=== PATIENT | male | born 1950 | race Caucasian/White ===

== ENCOUNTER → 2018-02-21 07:09 | Outpatient (CLI) | payer MEDICARE, OTHER, SELFPAY ==
[2018-02-21 09:07] LABS: Blood Urea Nitrogen 15 mg/dL (9-20); Estimated Glomerular Filt Rate > 60.0 mL/min (>60); Glucose 121 mg/dL (80-110)
[2018-02-21 09:10] LABS: Hemoglobin A1C% w Est Avg Glu 6.3 % (4.0-6.0)
== END ==
PROVIDERS: PCP Family Medicine; Visit Provider Family Medicine
DX: E11.9 Type 2 diabetes mellitus without complications (principal)
CPT/HCPCS: 36415; 82565; 82947; 83036; 84520

== ENCOUNTER → 2018-02-23 15:22 | Outpatient (CLI) | payer MEDICARE, OTHER, SELFPAY ==
[2018-02-23 16:05] LABS: Prostate Specific Antigen Scrn 1.55 ng/mL (0.1-4.0)
== END ==
PROVIDERS: Family Provider Family Medicine; PCP Family Medicine; Visit Provider Family Medicine
DX: N40.0 Benign prostatic hyperplasia without lower urinary tract symptoms (principal)
CPT/HCPCS: G0103

== ENCOUNTER 2018-05-24 07:50 | Emergency (ER) | payer MEDICARE, OTHER, SELFPAY ==
[2018-05-24 07:59] VITALS: BP 175/100; PULSE 80; RESP 16; TEMP 35.9; O2SAT 99
--- NOTE | 2018-05-24 08:28 | ED.BACK ---
HPI - Back Pain/Injury General Chief Complaint: Back Pain/Injury Stated Complaint: 'BACK INJURY CAN'T WAIT' Time Seen by Provider: 05/24/18 08:12 Source: patient Mode of arrival: ambulatory Limitations: no limitations History of Present Illness HPI Narrative: Patient is a 67-year-old male with chronic back pain. He has had back pain on and off since at least 2013. 18 months ago in 2017 he had an injury which worsened his back pain. 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 He takes Percocet he says sometimes 3 at a time which is not helping. He had a cortisone shot 1 month ago which he said did not help at all and fact it has gotten worse. Last night his pain was so bad he was unable to sleep. It feels better when he is hunched over. He has chronic neuropathy in his legs from diabetes he does not feel like it is any worse. He is still able to walk although the pain in his back is worse. He denies weakness in his legs. He has no urinary or stool incontinence. He said he was sweating this morning when he arrived to the emergency department but he is afebrile. He has known L4-L5 degenerative disc disease MD Complaint: back pain Onset (ago): year(s) Duration: constant Location: lumbar spine Related Data Home Medications Medication Instructions Recorded Confirmed ibuprofen 200 mg capsule 1,200 mg PO Q4-6H PRN cap 04/18/18 05/24/18 diclofenac sodium 1 applic TOPICAL DIRECTED 05/24/18 05/24/18 gabapentin 600 mg PO PRN PRN MDD 4 05/24/18 05/24/18 ketoconazole 1 applic TOPICAL DIRECTED 05/24/18 05/24/18 naproxen sodium [Aleve] 1 dose PO PRN PRN 05/24/18 05/24/18 oxycodone-acetaminophen 1 tab PO TID PRN 05/24/18 05/24/18 Previous Rx's Medication Instructions Recorded Glucose: Test Strips 0 str QDAY #100 str 11/19/17 hydrocortisone 2.5 % topical cream 1 applictn TOP BID #28 gram 02/23/18 glipizide 5 mg PO QDAY #30 tab 03/17/18 lidocaine 1 patch TOP DAILY PRN #15 each 05/24/18 prednisone 20 mg PO DAILY #5 tab 05/24/18 Allergies Allergy/AdvReac Type Severity Reaction Status Date / Time amoxicillin [AMOXICILLIN] Allergy Mild NAUSEA/VOMI Verified 05/24/18 09:19 TING clavulanic acid Allergy Mild AUGMENTIN/V Verified 05/24/18 09:19 [CLAVULANIC ACID] OMITING erythromycin base Allergy Mild SKIN Verified 05/24/18 09:19 [ERYTHROMYCIN BASE] CRAWLING latex [LATEX] Allergy Mild SKIN Verified 05/24/18 09:19 IRRITATION Penicillins [PENICILLINS] Allergy Mild NAUSEA/VOMI Verified 05/24/18 09:19 TING Sulfa (Sulfonamide Allergy Mild BLISTER Verified 05/24/18 09:19 Antibiotics) [SULFA (SULFONAMIDE ANTIBIOTICS)] ciprofloxacin [CIPROFLOXACIN] AdvReac Intermediate MADE PT Verified 05/24/18 09:19 FEEL RUMMY/NAUSEA Review of Systems Review of Systems All systems reviewed & are unremarkable except as noted in HPI and below Constitutional Denies chills, Denies fever(s), Denies lethargy and Denies weakness Cardiovascular Denies dyspnea and Denies dyspnea on exertion Respiratory Denies cough, Denies dyspnea, Denies dyspnea on exertion and Denies wheezing Gastrointestinal Gastrointestinal: Denies diarrhea and Denies nausea Genitourinary Denies hematuria, Denies flank pain, Denies urinary incontinence and Denies urinary urgency Musculoskeletal Reports as per HPI, Reports back pain, Reports limited range of motion, Denies muscle weakness, Reports numbness and Reports tingling Integumentary/Breasts Denies pruritus, Denies erythema, Denies rash and Denies wounds Neurologic Reports as per HPI, Reports numbness, Reports tingling, Reports paresthesias and Denies weakness Allergic/Immunologic Denies wheezing [facility] Medical History Prepatellar bursitis of right knee (Chronic) Left sided sciatica (Chronic) Essential hypertension (Chronic) Osteoarthritis of lower back (Chronic 09/19/14) Tear of rotator cuff (Chronic 09/19/14) Benign prostatic hyperplasia (Chronic 01/02/15) Cramps of lower extremity (Chronic 01/02/15) Controlled type 2 diabetes mellitus without complication (Chronic 04/30/16) 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) BPH (benign prostatic hyperplasia) (Chronic) GERD (gastroesophageal reflux disease) (Chronic) Inflamed internal hemorrhoid (Chronic 02/2018) Surgical History H/O colonoscopy (Resolved 07/08/15) H/O sinus surgery (Resolved 2003) History of elbow surgery (Resolved) History of sebaceous cyst (Resolved 2000) Hx of inguinal hernia surgery (Resolved 1996) Status post laminectomy (Resolved) Social History marital status: Smoking Status: Former smoker alcohol intake: current (ON OCCASION ) Exam Initial Vital Signs Initial Vital Signs: Vital Signs Temperature 96.7 F L 05/24/18 07:59 Pulse Rate 80 05/24/18 07:59 Respiratory Rate 16 05/24/18 07:59 Blood Pressure 175/100 H 05/24/18 07:59 Pulse Oximetry 99 05/24/18 07:59 GENERAL: Elderly male sitting in chair hunched over appears in pain HEENT: Head atraumatic,EOMI, pupils reactive, neck is supple CARDIOVASCULAR: Regular rate and rhythm without murmurs, rubs or gallops. RESPIRATORY: Breath sounds equal bilaterally, no wheezes rales or rhonchi. ABDOMEN: Soft, nontender. Normoactive bowel sounds all 4 quadrants. No guarding or rebound. BACK: L4 midline tenderness step-off : No CVA tenderness EXTREMITIES: Normal range of motion, no clubbing or edema. Neurovascularly intact NEUROLOGICAL: Alert and oriented x4.Normal gait and speech. Cranial nerves II through XII grossly intact. Decreased sensation in left leg but are not changed. SKIN: Warm, dry, no laceration, no petechiae, no rashes or lesions. Course Orders Ordered: ED Orders 05/24/18 08:57 CT lumbar spine wo con Stat 05/24/18 09:42 MR lumbar spine wo/w con Stat 05/24/18 10:35 Basic Metabolic Panel Stat C-Reactive Protein Quant Stat Complete Blood Count AUTO DIFF Stat Erythrocyte Sedimentation Rate Stat Discontinued Medications Hydromorphone HCl (Dilaudid) 1 mg SUBCUT Q4H PRN PRN Reason: Pain, Severe (7-10) Hydromorphone HCl (Dilaudid) 1 mg IV NOW ONE Stop: 05/24/18 10:02 Last Admin: 05/24/18 10:02 Dose: 1 mg Ketorolac Tromethamine (Toradol) 60 mg IM NOW ONE Stop: 05/24/18 08:32 Last Admin: 05/24/18 08:34 Dose: 60 mg Vital Signs - 8 hr 05/24/18 07:59 05/24/18 10:10 05/24/18 12:39 Temperature 96.7 F L 98.4 F Pulse Rate 80 36 L 60 Respiratory Rate 16 18 16 Blood Pressure 175/100 H Blood Pressure [Right Arm] 143/53 H 134/77 Pulse Oximetry 99 100 94 MDM - Back Pain/Injury Lab Data Attestation: I reviewed the patient's lab results. Result diagrams: 05/24/18 10:35 05/24/18 10:35 Lab Results 05/24/18 05/24/18 Range/Units 10:35 10:35 WBC 6.1 (4.5-11.0) X10^3/uL RBC 5.37 (4.5-5.9) X10^6/uL Hgb 15.8 (13.5-17.5) g/dL Hct 46.1 (41-53) % MCV 85.9 (80-100) fL MCH 29.4 (26-34) PG MCHC 34.2 (30-36) % RDW 14.1 (11.6-14.8) % Plt Count 178 (150-400) X10^3/uL Neut % (Auto) 73.9 (50-75) % Lymph % (Auto) 17.4 L (25-40) % [place] % (Auto) 6.8 (3-14) % Eos % (Auto) 1.0 L (2-4) % Baso % (Auto) 0.9 (0-2) % Neut # (Auto) 4500 (3539-1496) /uL ESR 1 (0-15) MM/HR Sodium 141 (137-145) mmol/L Potassium 5.0 (3.4-5.1) mmol/L Chloride 101 (98-107) mmol/L Carbon Dioxide 30 (22-32) mmol/L BUN 20 (9-20) mg/dL Creatinine 0.90 (0.66-1.25) mg/dL Estimated GFR > 60.0 (>60) mL/min BUN/Creatinine Ratio 22.2 H (6-22) Glucose 111 H (80-110) mg/dL Calcium 10.0 (8.4-10.2) mg/dL C-Reactive Protein < 0.5 (<1.0) mg/dL Imaging Data ct lUMBAR: Radiologist's impression: PROCEDURE: CT LUMBAR SPINE WO CON INDICATIONS: 67-year-old man with worsening lumbar pain, sciatica bilaterally, worse on the right. TECHNIQUE: Noncontrast 3 mm thick sections acquired from the T12 level to the sacrum. Sagittal and coronal reformats were constructed. For radiation dose reduction, the following was used: automated exposure control. COMPARISON: [facility], MR, L-SPINE WITHOUT CONTRAST, 02/01/2017, 18:36. [facility] [place], CR, XR LUMBAR SPINE FLEXION EXTENSION, 06/14/2017, 9:18. [facility] [place], RF, LUMBAR TRANSFORAMINAL ANÍBAL, 08/12/2017, 16:50. FINDINGS: Image quality: Excellent. Bones: There is normal bony alignment. No acute vertebral body compression fractures. No suspicious lytic or blastic bony lesions. Central spinal caliber is of normal overall caliber. No pars defects. T12-L1: Normal appearance of intervertebral disc. Mild bilateral facet arthropathy. No central canal or foraminal stenosis. L1-L2: Mild loss of disc height and broad posterior disc bulge. Mild bilateral facet arthropathy. The central canal is mildly narrowed. No foraminal stenosis. L2-L3: Phwj-qk-ieqalnxu loss of disc height and vacuum phenomenon. Diffuse disc bulge and posterior disc osteophyte complex. Mild bilateral facet arthropathy. The central canal is moderately narrowed. Mild bilateral foraminal stenosis. L3-L4: Mild loss of disc height. Diffuse posterior disc bulge and disc protrusion. Mild bilateral facet arthropathy. The central canal is moderately narrowed. Mild bilateral foraminal stenosis. L4-L5: Laminectomies bilaterally. Moderate loss of disc height. Diffuse posterior disc bulge and disc protrusion. No central canal stenosis. Mild bilateral facet arthropathy. Severe right and moderate left foraminal stenosis. L5-S1: Preserved disc height. There is posterior disc bulge. No central canal stenosis. Mild lateral foramina stenosis. Soft tissues: There are a few colonic diverticula in sigmoid colon. No retroperitoneal masses or hematomas. Visualized aorta is normal in caliber. IMPRESSION: 1. Degenerative and postsurgical changes in lumbar as described. 2. Moderate central canal stenosis at L2-L3 and L3-L4. 3. Multilevel foraminal stenoses as described. Dictated by: Piero Che M.D. on 05/24/2018 at 9:06 MRI lumbar: Radiologist's impression: PROCEDURE: MR LUMBAR SPINE WO/W CON INDICATIONS: worsening back pain cortisone injection 1 month ago TECHNIQUE: Noncontrast sagittal T1 spin echo and T2 fast spin echo, sagittal STIR, axial T1 and T2 fast spin echo through the lumbar spine. In cases with scoliosis, additional coronal T2 fast spin echo may be performed. After the administration of contrast, sagittal and axial T1 spin echo with fat saturation through the lumbar spine. COMPARISON: [facility], MR, L-SPINE WITHOUT CONTRAST, 02/01/2017, 18:36. [facility], CT, CT LUMBAR SPINE WO CON, 05/24/2018, 8:39. FINDINGS: Image quality: Excellent. Alignment and curvature: There is straightening of normal lumbar curvature. There is trace retrolisthesis of L2 on L3, L3 on L4. Marrow: Marrow is of normal overall signal. Prominent, presumably degenerative reactive endplate changes are present at L4-5 new compared to MR of 02/06/17. No acute vertebral body compression fractures. No suspicious marrow enhancement. Spinal cord: Conus medullaris terminates at the T12-L1 level. Visualized spinal cord demonstrates normal signal, without suspicious enhancement. Paraspinous soft tissues: No paravertebral masses or abnormal enhancement. Discs: Moderate desiccation is present from L1-L2 through L4-5, mild at L5-S1. L1-L2: Mild disc bulge with mild spinal stenosis. Moderate left and mild right foraminal narrowing with minimal epidural lipomatosis as well as facet and ligamentum flavum hypertrophy. No interval change. L2-L3: Mild disc bulge with moderate spinal stenosis. Minimal epidural lipomatosis as well as facet and ligamentum flavum hypertrophy are present. Mild to moderate bilateral foraminal narrowing is present, unchanged. There remains compromise of the lateral recesses secondary to disc bulges. L3-L4: Mild disc bulge with moderate spinal stenosis. There is prominent compromise left lateral recess secondary to disc extrusion with compromise of the exiting nerve roots. There is compromise of the right lateral recess secondary to disc bulge, unchanged. Facet and ligamentum flavum hypertrophy are present. Severe left and moderate right foraminal narrowing are present, unchanged. L4-L5: Mild disc bulge with superimposed right posterior paracentral protrusion causing compromise of the right lateral recess. There is mild spinal stenosis. There is severe right and moderate to severe left foraminal narrowing. Laminectomy changes are noted. L5-S1: Mild disc bulge with mild spinal stenosis. There is moderate to severe right and moderate left narrowing within the subarticular recesses bilaterally with facet hypertrophy. No interval change. IMPRESSION: 1. Prominent multilevel degenerative changes appear relatively stable compared to recent prior examinations. 2. Multilevel spinal stenosis most notable at L2-3 and L3-4 secondary to disc bulges with a contributing factor facet/ligamentum flavum arthropathy. 3. Multilevel areas of foraminal narrowing secondary to facet arthropathy as well as areas of previous identified protrusions/extrusions without significant change. No Dictated by: Hanna Meyer M.D. on 05/24/2018 at 10:27 MDM Narrative Medical decision making narrative: Patient is having persistent pain. CT shows stable disease. Patient read recently had a cortisone injection in the back. Ever since then he is having increasing pain no weakness or incontinence. However there is concern for possible epidural abscess or hematoma. No fever although he says he has been sweating. MRI and CT are both negative this is acute on chronic back pain they appear relatively stable. I have tried to reassure patient. Recommended outpatient follow-up. Patient is given a copy of his MRI. Discharge Plan Departure Patient Disposition: Home Clinical Impression: Acute exacerbation of chronic low back pain Discharge Date/Time: 05/24/18 12:45 Interventions: ED Discharge Assessment Last Done: 05/24/18 12:42 Instructions: Managing Chronic Low Back Pain Activity Restrictions/Additional Instructions: *You have been diagnosed with acute on chronic back pain *What to do: You may need physical therapy again please continue with chronic pain management. *Continue to take medications as directed: Prescriptions faxed to [facility] in [place] Prednisone 20 mg once a day for 5 days, this will increase your sugar Lidocaine patches may cut if needed place in area of pain. Leave on for 12 hr and then remove *Follow up with your primary care provider in 2-3 days, follow up with Dr. núñez or Dr. Avila they are local back specialists. Dr. 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 *Return to ER if you should have inability to walk, loss of urine or loss of stool, increasing weakness or any new, worsening or concerning symptoms Prescriptions: New prednisone 20 mg tablet 20 mg PO DAILY Qty: 5 RF: 0 lidocaine 5 % adhesive patch,medicated 1 patch TOP DAILY PRN (Reason: pain) Qty: 15 RF: 0 No Action Glucose: Test Strips QDAY Qty: 100 RF: 3 glipizide 5 mg tablet 5 mg PO QDAY Qty: 30 RF: 3 hydrocortisone 2.5 % cream 1 applictn TOP BID Qty: 28 RF: 3 ibuprofen 200 mg capsule 1,200 mg PO Q4-6H PRN (Reason: Pain, Moderate) RF: 0 oxycodone-acetaminophen 10-325 mg tablet 1 tab PO TID PRN (Reason: Pain, Severe) RF: 0 ketoconazole 2 % cream 1 applic Topical DIRECTED RF: 0 diclofenac sodium 1 % gel 1 applic Topical DIRECTED RF: 0 gabapentin 600 mg Tablet 600 mg PO PRN MDD 4 PRN (Reason: Pain (Scale Score 1-3)) RF: 0 naproxen sodium [Aleve] 220 mg Tablet 1 dose PO PRN PRN (Reason: Pain, Moderate) RF: 0 Referrals: Wiley Mcghee MD [Non-Staff] - Cas Marin MD [Primary Care Provider] - Jd Waters MD [Physician] -
[2018-05-24] MEDS: KETOROLAC 60 MG/2 ML VIAL IM (08:34)
--- NOTE | 2018-05-24 08:57 | DI.CT.S_ITS ---
PROCEDURE: CT LUMBAR SPINE WO CON INDICATIONS: 67-year-old man with worsening lumbar pain, sciatica bilaterally, worse on the right. TECHNIQUE: Noncontrast 3 mm thick sections acquired from the T12 level to the sacrum. Sagittal and coronal reformats were constructed. For radiation dose reduction, the following was used: automated exposure control. COMPARISON: [facility], MR, L-SPINE WITHOUT CONTRAST, 02/01/2017, 18:36. [facility] [place], CR, XR LUMBAR SPINE FLEXION EXTENSION, 06/14/2017, 9:18. [facility] [place], RF, LUMBAR TRANSFORAMINAL ANÍBAL, 08/12/2017, 16:50. FINDINGS: Image quality: Excellent. Bones: There is normal bony alignment. No acute vertebral body compression fractures. No suspicious lytic or blastic bony lesions. Central spinal caliber is of normal overall caliber. No pars defects. T12-L1: Normal appearance of intervertebral disc. Mild bilateral facet arthropathy. No central canal or foraminal stenosis. L1-L2: Mild loss of disc height and broad posterior disc bulge. Mild bilateral facet arthropathy. The central canal is mildly narrowed. No foraminal stenosis. L2-L3: Tfee-ai-vvgrdwus loss of disc height and vacuum phenomenon. Diffuse disc bulge and posterior disc osteophyte complex. Mild bilateral facet arthropathy. The central canal is moderately narrowed. Mild bilateral foraminal stenosis. L3-L4: Mild loss of disc height. Diffuse posterior disc bulge and disc protrusion. Mild bilateral facet arthropathy. The central canal is moderately narrowed. Mild bilateral foraminal stenosis. L4-L5: Laminectomies bilaterally. Moderate loss of disc height. Diffuse posterior disc bulge and disc protrusion. No central canal stenosis. Mild bilateral facet arthropathy. Severe right and moderate left foraminal stenosis. L5-S1: Preserved disc height. There is posterior disc bulge. No central canal stenosis. Mild lateral foramina stenosis. Soft tissues: There are a few colonic diverticula in sigmoid colon. No retroperitoneal masses or hematomas. Visualized aorta is normal in caliber. IMPRESSION: 1. Degenerative and postsurgical changes in lumbar as described. 2. Moderate central canal stenosis at L2-L3 and L3-L4. 3. Multilevel foraminal stenoses as described. Dictated by: Piero Che M.D. on 05/24/2018 at 9:06 Approved by: Piero Che M.D. on 05/24/2018 at 9:23
--- NOTE | 2018-05-24 09:42 | DI.MRI.S_ITS ---
PROCEDURE: MR LUMBAR SPINE WO/W CON INDICATIONS: worsening back pain cortisone injection 1 month ago TECHNIQUE: Noncontrast sagittal T1 spin echo and T2 fast spin echo, sagittal STIR, axial T1 and T2 fast spin echo through the lumbar spine. In cases with scoliosis, additional coronal T2 fast spin echo may be performed. After the administration of contrast, sagittal and axial T1 spin echo with fat saturation through the lumbar spine. COMPARISON: [facility], MR, L-SPINE WITHOUT CONTRAST, 02/01/2017, 18:36. [facility], CT, CT LUMBAR SPINE WO CON, 05/24/2018, 8:39. FINDINGS: Image quality: Excellent. Alignment and curvature: There is straightening of normal lumbar curvature. There is trace retrolisthesis of L2 on L3, L3 on L4. Marrow: Marrow is of normal overall signal. Prominent, presumably degenerative reactive endplate changes are present at L4-5 new compared to MR of 02/06/17. No acute vertebral body compression fractures. No suspicious marrow enhancement. Spinal cord: Conus medullaris terminates at the T12-L1 level. Visualized spinal cord demonstrates normal signal, without suspicious enhancement. Paraspinous soft tissues: No paravertebral masses or abnormal enhancement. Discs: Moderate desiccation is present from L1-L2 through L4-5, mild at L5-S1. L1-L2: Mild disc bulge with mild spinal stenosis. Moderate left and mild right foraminal narrowing with minimal epidural lipomatosis as well as facet and ligamentum flavum hypertrophy. No interval change. L2-L3: Mild disc bulge with moderate spinal stenosis. Minimal epidural lipomatosis as well as facet and ligamentum flavum hypertrophy are present. Mild to moderate bilateral foraminal narrowing is present, unchanged. There remains compromise of the lateral recesses secondary to disc bulges. L3-L4: Mild disc bulge with moderate spinal stenosis. There is prominent compromise left lateral recess secondary to disc extrusion with compromise of the exiting nerve roots. There is compromise of the right lateral recess secondary to disc bulge, unchanged. Facet and ligamentum flavum hypertrophy are present. Severe left and moderate right foraminal narrowing are present, unchanged. L4-L5: Mild disc bulge with superimposed right posterior paracentral protrusion causing compromise of the right lateral recess. There is mild spinal stenosis. There is severe right and moderate to severe left foraminal narrowing. Laminectomy changes are noted. L5-S1: Mild disc bulge with mild spinal stenosis. There is moderate to severe right and moderate left narrowing within the subarticular recesses bilaterally with facet hypertrophy. No interval change. IMPRESSION: 1. Prominent multilevel degenerative changes appear relatively stable compared to recent prior examinations. 2. Multilevel spinal stenosis most notable at L2-3 and L3-4 secondary to disc bulges with a contributing factor facet/ligamentum flavum arthropathy. 3. Multilevel areas of foraminal narrowing secondary to facet arthropathy as well as areas of previous identified protrusions/extrusions without significant change. No Dictated by: Hanna Meyer M.D. on 05/24/2018 at 10:27 Approved by: Hanna Meyer M.D. on 05/24/2018 at 11:04
[2018-05-24] MEDS: HYDROMORPHONE 1 MG INJ IV (10:02)
[2018-05-24 10:10] VITALS: BP 143/53; PULSE 36; RESP 18; TEMP 36.9; O2SAT 100
[2018-05-24 10:44] LABS: Add Manual Diff / Slide Review NO; Basophils Percent Auto 0.9 % (0-2); Hematocrit 46.1 % (41-53); Hemoglobin 15.8 g/dL (13.5-17.5); Lymphocytes Percent Auto 17.4 % (25-40); Mean Corpuscular HGB Conc 34.2 % (30-36); Mean Corpuscular Hemoglobin 29.4 PG (26-34); Mean Corpuscular Volume 85.9 fL (80-100); Monocytes Percent Auto 6.8 % (3-14); Neutrophils Absolute Auto 4500 /uL (3000-5900); Neutrophils Percent Auto 73.9 % (50-75); Platelet Count 178 X10^3/uL (150-400); Red Blood Cell Count 5.37 X10^6/uL (4.5-5.9); Red Cell Distribution Width 14.1 % (11.6-14.8); White Blood Cell Count 6.1 X10^3/uL (4.5-11.0)
[2018-05-24 10:56] LABS: BUN Creatinine Ratio 22.2 (6-22); Blood Urea Nitrogen 20 mg/dL (9-20); Carbon Dioxide 30 mmol/L (22-32); Chloride 101 mmol/L (98-107); Estimated Glomerular Filt Rate > 60.0 mL/min (>60); Glucose 111 mg/dL (80-110); HEMOLYSIS < 15 (0-50); Sodium 141 mmol/L (137-145)
[2018-05-24 10:57] LABS: C-Reactive Protein Quant < 0.5 mg/dL (<1.0)
[2018-05-24 11:05] LABS: Erythrocyte Sedimentation Rate 1 MM/HR (0-15)
[2018-05-24 12:39] VITALS: BP 134/77; PULSE 60; RESP 16; O2SAT 94
== END 2018-05-24 12:45 | disposition home or self-care (01) ==
PROVIDERS: Emergency Provider Emergency Medicine; Family Provider Family Medicine; PCP Family Medicine
DX: M54.5 Low back pain (principal); G89.29 Other chronic pain
CPT/HCPCS: 36415; 72131; 72158; 80048; 85025; 85651; 86140; 96372; 96374; 99283; 99285; J1170; J1885

== ENCOUNTER → 2018-06-23 08:05 | Outpatient (CLI) | payer MEDICARE, OTHER, SELFPAY ==
[2018-06-23 08:45] LABS: BUN Creatinine Ratio 22.2 (6-22); Blood Urea Nitrogen 20 mg/dL (9-20); Calcium 9.5 mg/dL (8.4-10.2); Carbon Dioxide 26 mmol/L (22-32); Chloride 104 mmol/L (98-107); Estimated Glomerular Filt Rate > 60.0 mL/min (>60); Glucose 118 mg/dL (80-110); HEMOLYSIS 22 (0-50); Potassium 4.6 mmol/L (3.4-5.1); Sodium 141 mmol/L (137-145)
[2018-06-23 09:12] LABS: Add Manual Diff / Slide Review NO; Basophils Percent Auto 2.4 % (0-2); Eosinophils Percent Auto 3.6 % (2-4); Hematocrit 45.6 % (41-53); Hemoglobin 15.4 g/dL (13.5-17.5); Lymphocytes Percent Auto 21.4 % (25-40); Mean Corpuscular HGB Conc 33.7 % (30-36); Mean Corpuscular Hemoglobin 29.5 PG (26-34); Mean Corpuscular Volume 87.5 fL (80-100); Neutrophils Absolute Auto 2800 /uL (3000-5900); Neutrophils Percent Auto 63.6 % (50-75); Platelet Count 208 X10^3/uL (150-400); Red Blood Cell Count 5.21 X10^6/uL (4.5-5.9); Red Cell Distribution Width 14.3 % (11.6-14.8); White Blood Cell Count 4.4 X10^3/uL (4.5-11.0)
[2018-06-23 09:34] LABS: Hemoglobin A1C% w Est Avg Glu 6.4 % (4.0-6.0)
== END ==
PROVIDERS: Family Provider Family Medicine; PCP Family Medicine; Visit Provider Orthopaedic Surgery Orthopaedic Surgery of the Spine
DX: Z01.818 Encounter for other preprocedural examination (principal); R73.9 Hyperglycemia, unspecified
CPT/HCPCS: 36415; 80048; 83036; 85025; 93005; 93010

== ENCOUNTER 2018-07-01 11:27 | Day surgery (SDC) | payer MEDICARE, OTHER, SELFPAY ==
[2018-06-20 12:45] VITALS: BMI 30.8
[2018-07-01] VITALS (12 sets, daily range): BP systolic 116–150; BP diastolic 51–89; PULSE 68–92; RESP 12–20; TEMP 36.2–36.9; O2SAT 92–99; BMI 30.8
--- NOTE | 2018-07-01 | DI.RAD.S_ITS ---
PROCEDURE: XR LUMBAR SPINE 2-3V INDICATIONS: L3-4 MICRODISCECTOMY TECHNIQUE: 2 views of the lumbar spine were acquired. COMPARISON: None. FINDINGS: Bones: There is a left-sided reported L3-4 microdiscectomy port in expected position. Soft tissues: Overlying bowel gas pattern is normal. No suspicious soft tissue calcifications. IMPRESSION: L3-4 left-sided microdiscectomy port access for surgical approach to the L3-L4 operative bed. Dictated by: Maco Peralta M.D. on 07/01/2018 at 14:35 Approved by: Maco Peralta M.D. on 07/01/2018 at 14:37
[2018-07-01] MEDS: LACTATED RINGERS 1,000 ML 42 ML IV (12:44)
--- NOTE | 2018-07-01 12:51 | PM.PREOP ---
Pre-operative Note Interval Note Pre-op Check: Yes History & Physical Reviewed by Physician, Yes Exam Performed and Yes History & Physical exam performed today by Physician Changes: No
[2018-07-01] MEDS: CLINDAMYCIN 900 MG/50 ML PIGGYBACK 50 MG IV (13:07)
--- NOTE | 2018-07-01 13:28 | SUR.OPER ---
Prone on spine table, head in foam head support, padded chest and pelvic supports, gel pad at knees, lower legs supported by pillows; nipples, genitalia and toes free of pressure, arms secured on foam padded arm boards at <90 degrees abduction. Tape over blanket at thigh secured to table.
[2018-07-01] MEDS: BUPIVACAINE 0.25% W/ EPI VIAL 30 ML INJ (13:39)
[2018-07-01] MEDS: methylPREDNISolone acet DEPO 40 MG/ML VIAL INJ (13:40)
--- NOTE | 2018-07-01 14:01 | PM.OP.1 ---
Operative Date/Time/Diagnoses Date of procedure: 07/01/18 Time of procedure: 13:01 Pre-op diagnosis: 1. L3-4 spinal stenosis 2. L3-4 disc herniation Post-op diagnosis: same Procedure & Clinicians Procedure: 1. L3-4 left microdiscectomy 2. Utilization of microsurgical technique and operating microscope Same procedure as scheduled: Yes Indications: Patient has been having chronic back pain and worsening lumbar radiculopathy. Patient failed multiple conservative management with worsening pain weakness and numbness in her lower extremity. Patient has been having difficulty performing activity of daily living. After discussing risks benefits of treatment options, patient elected proceed with surgery. Surgeon: Chiki Avila Supervisor Mapping: Gabby Eisenberg Click Yes if Unassisted: No Anesthesia Type: General Operative Notes Closure Type: primary Specimen(s): none sent Estimated Blood Loss (mL): 20 Blood products transfused: none Procedure in detail: Patient was seen in the preoperative area. Risks and benefits of the surgery was discussed with the patient. Informed consent was obtained from the patient and placed in the chart. Surgical site was marked. Patient was taken to the operative room. General anesthesia was administered. Prophylactic antibiotic was given to the patient less than 30 min before the incision was made. Patient was placed into a prone position on the Shaquille table. Patient's back was then prepped and draped in the sterile fashion. Time-out was performed at this time. Using AP and lateral C-arm imaging the interval between L3-4 was identified and marked on patient's back. A 1 inch incision 1 in from midline was made on the left side. The fascia was incised in line with skin incision. Globus MARS retractors was placed inside the incision and docked onto the L3 lamina. Using microsurgical technique and operating microscope, a L3 laminotomy was performed using a Kerrison rongeur. Liagamentum flavum was resected at the site of the laminotomy. The disc space at L3-4 was identified. Microdiscectomy was performed by incising the annulus with #11 blade. Microcurettes and pituitary was used to removed herniated disc fragments of disc from the epidural space. After the microdiskectomy was completed, the area medial lateral superior and inferior to the area of the microdiskectomy was inspected and explored using a micro curette. No other impinging structure was identified. The wound was then irrigated with sterile normal saline. 40 mg Depo-Medrol was placed into the epidural space. The deep fascia was closed with 1-0 Vicryl. The subcutaneous tissue was closed with 2-0 Vicryl. The skin was closed with 4-0 Monocryl. Patient tolerated the procedure well. There were no complications. Patient was transferred recovery room in stable condition. Complications: none Condition: stable Disposition: same day surgery Plan for aftercare: Discharge to home
[2018-07-01] MEDS: HYDROMORPHONE 2 MG INJ 0.5 MG IV ×2 (14:27→14:37)
--- NOTE | 2018-07-01 14:52 | SUR.PHASEII ---
pt denies any leg pain and states his toes remain numb and tingly. States he has lower back pain from surgery but states she feels much better. Able to move all extremities well. 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
[2018-07-01] MEDS: OXYCODONE/ACETAMINOPHEN 5/325 TABLET 1 TAB PO (15:33)
== END 2018-07-01 16:25 | disposition home or self-care (01) ==
PROVIDERS: Family Provider Family Medicine; PCP Family Medicine; Visit Provider Orthopaedic Surgery Orthopaedic Surgery of the Spine
PROC: (CPT 63030; principal; 2018-07-01 13:15)
DX: M51.16 Intervertebral disc disorders with radiculopathy, lumbar region (principal); M48.061 Spinal stenosis, lumbar region without neurogenic claudication; I10 Essential (primary) hypertension; E11.9 Type 2 diabetes mellitus without complications; J44.9 Chronic obstructive pulmonary disease, unspecified; Z87.891 Personal history of nicotine dependence
CPT/HCPCS: 63030; 72100; 76000; J1030; J1100; J1170; J2250; J2405; J2704; J3010

== ENCOUNTER → 2018-08-15 13:06 | Outpatient (CLI) | payer MEDICARE, OTHER, SELFPAY ==
--- NOTE | 2018-08-15 | DI.US.S_ITS ---
PROCEDURE: US SCROTUM INDICATIONS: CELLULITIS OF SCROTUM TECHNIQUE: Real-time scanning was performed of the scrotum and testicles, with image documentation. Color and pulse Doppler interrogation was performed of both testicles. COMPARISON: None. FINDINGS: Right: Testicle is normal in size at 4.7 x 2.5 x 3.2 cm, and homogenous in echotexture. Epididymis is normal in overall size and morphology. No hydrocele or varicoceles. Overlying scrotal skin is thickened, measuring 1.1 cm. Left: Testicle is normal in size at 3.8 x 2.3 x 2.5 cm, and homogeneous in echotexture. Epididymis is normal in overall size and morphology. No hydrocele or varicoceles. Overlying scrotal skin is thickened. Doppler: Color and pulse Doppler demonstrate normal and symmetric arterial flow in both testicles. IMPRESSION: Scrotal wall thickening is seen, which is consistent with the given history. Normal appearing testicles. Dictated by: Gavin Estrada M.D. on 08/15/2018 at 14:07 Approved by: Gavin Estrada M.D. on 08/15/2018 at 14:08
== END ==
PROVIDERS: Family Provider Family Medicine; PCP Family Medicine; Visit Provider Urology
DX: N49.2 Inflammatory disorders of scrotum (principal)
CPT/HCPCS: 76870

== ENCOUNTER → 2018-09-09 13:05 | Outpatient (CLI) | payer MEDICARE, OTHER, SELFPAY ==
--- NOTE | 2018-09-09 13:11 | DI.RAD.S_ITS ---
PROCEDURE: XR CHEST 2V INDICATIONS: cough TECHNIQUE: 2 views of the chest were acquired. COMPARISON: [facility], CHEST 2 VIEW, 12/03/2016, 11:12. [facility], CHEST 2 VIEW, 09/09/2015, 16:32. FINDINGS: Surgical changes and devices: None. Lungs and pleura: No pleural effusions or pneumothorax. Lungs are clear. Mediastinum: Mediastinal contours are normal. Heart size is normal. Bones and chest wall: No suspicious bony abnormalities. Soft tissues appear unremarkable. IMPRESSION: Normal for age, source of current symptoms is not seen. Dictated by: Maco Peralta M.D. on 09/09/2018 at 13:42 Approved by: Maco Peralta M.D. on 09/09/2018 at 13:42
== END ==
PROVIDERS: Family Provider Family Medicine; PCP Family Medicine; Visit Provider Physician Assistant
DX: R05 Cough (principal)
CPT/HCPCS: 71046

== ENCOUNTER 2018-09-10 17:39 | Emergency (ER) | payer MEDICARE, OTHER, SELFPAY ==
[2018-09-10 17:52] VITALS: BP 204/89; PULSE 68; RESP 18; TEMP 36.6; O2SAT 96
--- NOTE | 2018-09-10 18:34 | ED.URI ---
HPI - URI/Sore Throat <Crystal Porter PA-C - Last Filed: 09/10/18 22:01> General Chief Complaint: Upper Respiratory Symptoms Stated Complaint: think im having a bad reaction to cold medicine Time Seen by Provider: 09/10/18 18:34 Source: patient Mode of arrival: ambulatory Limitations: no limitations History of Present Illness HPI Narrative: This 67-year-old gentleman was seen at the walk-in clinic yesterday and diagnosed with possible pneumonia, started on Z-Igor. He is a former smoker and does have COPD, but states that he never needs inhalers or other treatment for this. He states that for a week, he has had a lot of nasal congestion as well as cough with green sputum. He states that he does wheeze at times. He states that he has some sinus pressure when he coughs, otherwise just congested. He can't say that his breathing has changed at all, he does not feel acutely short of breath, but he does feel flushed in his face and head area and states that this started about 2 hr after taking the 1st dose of azithromycin at home. He had a reaction to erythromycin in the past as well though this is not quite typical. He has not had any other rash or hives. He has not had any facial swelling. He states he has had sweats at times, denies any new fevers. Denies body aches, sore throat, earache, other new complaints on systems review such as chest pain. Related Data Home Medications Medication Instructions Recorded Confirmed ketoconazole 1 applic TOPICAL DIRECTED 05/24/18 09/09/18 hydromorphone 1 tab PO QID 07/01/18 09/09/18 Previous Rx's Medication Instructions Recorded Glucose: Test Strips 0 str QDAY #100 str 11/19/17 hydrocortisone 2.5 % topical cream 1 applictn TOP BID #28 gram 02/23/18 ketoconazole 2 % shampoo 1 applictn TOP 2XW 28 Days #120 ml 07/27/18 gabapentin 600 mg tablet 600 mg PO 5XD PRN #450 tab MDD 4 08/25/18 glipizide 5 mg tablet 5 mg PO QDAY #90 tab 08/25/18 Allergies Allergy/AdvReac Type Severity Reaction Status Date / Time amoxicillin [AMOXICILLIN] Allergy Mild NAUSEA/VOMI Verified 09/09/18 12:11 TING clavulanic acid Allergy Mild AUGMENTIN/V Verified 09/09/18 12:11 [CLAVULANIC ACID] OMITING erythromycin base Allergy Mild SKIN Verified 09/09/18 12:11 [ERYTHROMYCIN BASE] CRAWLING latex [LATEX] Allergy Mild SKIN Verified 09/09/18 12:11 IRRITATION Penicillins [PENICILLINS] Allergy Mild NAUSEA/VOMI Verified 09/09/18 12:11 TING Sulfa (Sulfonamide Allergy Mild BLISTER Verified 09/09/18 12:11 Antibiotics) [SULFA (SULFONAMIDE ANTIBIOTICS)] ciprofloxacin [CIPROFLOXACIN] AdvReac Intermediate MADE PT Verified 09/09/18 12:11 FEEL RUMMY/NAUSEA Review of Systems <MIKE Ngo Last Filed: 09/10/18 22:01> Review of Systems All systems reviewed & are unremarkable except as noted in HPI and below Exam <MIKE Ngo Last Filed: 09/10/18 22:01> Narrative Exam Narrative: GENERAL APPEARANCE: Patient resting comfortably, in no distress. HEAD: No sinus TTP. EYES: PERRL, EOMI. EARS: Normal auditory canals, TMS intact with normal light reflexes. ORAL CAVITY: Normal oropharynx. THROAT: Trace erythema, PND noted, no exudate NECK/THYROID: Neck supple, full range of motion, small submandibular nodes LUNGS: Generalized coarse breath sounds without wheezes or crackles HEART: RRR without murmur, nl S1, S2, no S3 or S4. DERMATOLOGIC: Perhaps slight flushing on the face, no other exanthem noted, no facial edema Initial Vital Signs Initial Vital Signs: Vital Signs Temperature 97.9 F 09/10/18 17:52 Pulse Rate 68 09/10/18 17:52 Respiratory Rate 18 09/10/18 17:52 Blood Pressure 204/89 H 09/10/18 17:52 Pulse Oximetry 96 09/10/18 17:52 <Luis Rose DO - Last Filed: 09/11/18 04:34> Initial Vital Signs Initial Vital Signs: Vital Signs Temperature 97.9 F 09/10/18 17:52 Pulse Rate 68 09/10/18 17:52 Respiratory Rate 18 09/10/18 17:52 Blood Pressure 204/89 H 09/10/18 17:52 Pulse Oximetry 96 09/10/18 17:52 Course <Crystal Porter PA-C - Last Filed: 09/10/18 22:01> Additional Information: Patient is resting comfortably and feeling significantly improved prior to discharge. He has not developed any urticaria or facial swelling. He will continue [id number] antihistamine as needed, and advised discontinuing antibiotics since no pneumonia on chest x-ray. His symptoms are consistent with viral URI. He does have COPD but has not needed inhalers or any specific treatment for this. Orders Ordered: Discontinued Medications Loratadine (Claritin) 10 mg PO NOW ONE Stop: 09/10/18 18:51 Last Admin: 09/10/18 19:30 Dose: 10 mg Vital Signs - 8 hr 09/10/18 17:52 09/10/18 19:23 09/10/18 20:05 Temperature 97.9 F Pulse Rate 68 70 61 Respiratory Rate 18 19 12 Blood Pressure 204/89 H 172/88 H Blood Pressure [Right Arm] 172/88 H Pulse Oximetry 96 97 99 <Luis Rose DO - Last Filed: 09/11/18 04:34> Orders Ordered: Discontinued Medications Loratadine (Claritin) 10 mg PO NOW ONE Stop: 09/10/18 18:51 Last Admin: 09/10/18 19:30 Dose: 10 mg Vital Signs - 8 hr 09/10/18 17:52 09/10/18 19:23 09/10/18 20:05 Temperature 97.9 F Pulse Rate 68 70 61 Respiratory Rate 18 19 12 Blood Pressure 204/89 H 172/88 H Blood Pressure [Right Arm] 172/88 H Pulse Oximetry 96 97 99 MDM - URI/Sore Throat <Crystal Porter PA-C - Last Filed: 09/10/18 22:01> Imaging Data Chest x-ray: Radiologist's impression: Note: taken 09/09 View Report History [address] [address] XRay Report Signed Patient: Ryland Quevedo MR#: [id number] : 1950 Acct:[id number] Age/Sex: 67 / M Date of Service: 09/09/18 Loc: DI Accession Number: [id number] Procedure: XR chest 2V Ordering Provider: Óscar Manriquez P.A-C PROCEDURE: XR CHEST 2V INDICATIONS: cough TECHNIQUE: 2 views of the chest were acquired. COMPARISON: [facility], , CHEST 2 VIEW, 12/03/2016, 11:12. [facility], , CHEST 2 VIEW, 09/09/2015, 16:32. FINDINGS: Surgical changes and devices: None. Lungs and pleura: No pleural effusions or pneumothorax. Lungs are clear. Mediastinum: Mediastinal contours are normal. Heart size is normal. Bones and chest wall: No suspicious bony abnormalities. Soft tissues appear unremarkable. IMPRESSION: Normal for age, source of current symptoms is not seen. Dictated by: Maco Peralta M.D. on 09/09/2018 at 13:42 Approved by: Maco Peralta M.D. on 09/09/2018 at 13:42 Discharge Plan Departure Patient Disposition: Home Clinical Impression: Medication reaction Discharge Date/Time: 09/10/18 20:06 Interventions: ED Discharge Assessment Last Done: 09/10/18 20:05 Instructions: DI for Adverse Drug Reaction -- Allergic Activity Restrictions/Additional Instructions: Since you are feeling better, it is okay for you to monitor at home. Please avoid drugs in the erythromycin family including azithromycin in the future since this seems to have cause some flushing reaction. Please take [id number] Zyrtec (cetirizine) 10 mg daily at bedtime to help with the medicine reaction, and this also may help your postnasal drip and drainage in your chest. You can add [id number]-[id number] Mucinex/guaifenesin to help with chest congestion, and you can continue decongestant if you have been taking this as well. Your chest x-ray was normal (no pneumonia) and this is likely a head and chest cold virus. Typically these resolve on their own, so you can stop antibiotics altogether and just give this a little time treating with the medicines above. Please return as we talked about if you have any acutely worsening symptoms, and otherwise follow up with your PCP in a few days for recheck. This is especially important due to your history of COPD. Please keep a list of your medicines and allergies with you since you have had several reactions in the past. Prescriptions: Discontinued azithromycin 250 mg tablet See Label Instructions PO .COMPLEX Qty: 6 RF: 0 No Action Glucose: Test Strips QDAY Qty: 100 RF: 3 gabapentin 600 mg tablet 600 mg PO 5XD MDD 4 PRN (Reason: Pain (Scale Score 1-3)) Qty: 450 RF: 3 glipizide 5 mg tablet 5 mg PO QDAY Qty: 90 RF: 3 ketoconazole 2 % shampoo 1 applictn TOP 2XW 28 Days Qty: 120 RF: 3 hydrocortisone 2.5 % cream 1 applictn TOP BID Qty: 28 RF: 3 ketoconazole 2 % cream 1 applic Topical DIRECTED RF: 0 hydromorphone 1 tab PO QID RF: 0 Referrals: Cas Marin MD [Primary Care Provider] - <Luis Rose DO - Last Filed: 09/11/18 04:34> Cosign ED Attending Rosaature Attestation: I was immediately available in the department for consultation. Documentation has been reviewed. I agree with assessment and plan.
--- NOTE | 2018-09-10 18:37 | ED_ITS ---
HPI - URI/Sore Throat <Crystal Porter PA-C - Last Filed: 09/10/18 22:01> General Chief Complaint: Upper Respiratory Symptoms Stated Complaint: think im having a bad reaction to cold medicine Time Seen by Provider: 09/10/18 18:34 Source: patient Mode of arrival: ambulatory Limitations: no limitations History of Present Illness HPI Narrative: This 67-year-old gentleman was seen at the walk-in clinic yesterday and diagnosed with possible pneumonia, started on Z-Igor. He is a former smoker and does have COPD, but states that he never needs inhalers or other treatment for this. He states that for a week, he has had a lot of nasal congestion as well as cough with green sputum. He states that he does wheeze at times. He states that he has some sinus pressure when he coughs, otherwise just congested. He can't say that his breathing has changed at all, he does not feel acutely short of breath, but he does feel flushed in his face and head area and states that this started about 2 hr after taking the 1st dose of azithromycin at home. He had a reaction to erythromycin in the past as well though this is not quite typical. He has not had any other rash or hives. He has not had any facial swelling. He states he has had sweats at times, denies any new fevers. Denies body aches, sore throat, earache, other new complaints on systems review such as chest pain. Related Data Home Medications Medication Instructions Recorded Confirmed ketoconazole 1 applic TOPICAL DIRECTED 05/24/18 09/09/18 hydromorphone 1 tab PO QID 07/01/18 09/09/18 Previous Rx's Medication Instructions Recorded Glucose: Test Strips 0 str QDAY #100 str 11/19/17 hydrocortisone 2.5 % topical cream 1 applictn TOP BID #28 gram 02/23/18 ketoconazole 2 % shampoo 1 applictn TOP 2XW 28 Days #120 ml 07/27/18 gabapentin 600 mg tablet 600 mg PO 5XD PRN #450 tab MDD 4 08/25/18 glipizide 5 mg tablet 5 mg PO QDAY #90 tab 08/25/18 Allergies Allergy/AdvReac Type Severity Reaction Status Date / Time amoxicillin [AMOXICILLIN] Allergy Mild NAUSEA/VOMI Verified 09/09/18 12:11 TING clavulanic acid Allergy Mild AUGMENTIN/V Verified 09/09/18 12:11 [CLAVULANIC ACID] OMITING erythromycin base Allergy Mild SKIN Verified 09/09/18 12:11 [ERYTHROMYCIN BASE] CRAWLING latex [LATEX] Allergy Mild SKIN Verified 09/09/18 12:11 IRRITATION Penicillins [PENICILLINS] Allergy Mild NAUSEA/VOMI Verified 09/09/18 12:11 TING Sulfa (Sulfonamide Allergy Mild BLISTER Verified 09/09/18 12:11 Antibiotics) [SULFA (SULFONAMIDE ANTIBIOTICS)] ciprofloxacin [CIPROFLOXACIN] AdvReac Intermediate MADE PT Verified 09/09/18 12: 11 FEEL RUMMY/NAUSEA Review of Systems <MIKE Ngo Last Filed: 09/10/18 22:01> Review of Systems All systems reviewed & are unremarkable except as noted in HPI and below Exam <MIKE Ngo Last Filed: 09/10/18 22:01> Narrative Exam Narrative: GENERAL APPEARANCE: Patient resting comfortably, in no distress. HEAD: No sinus TTP. EYES: PERRL, EOMI. EARS: Normal auditory canals, TMS intact with normal light reflexes. ORAL CAVITY: Normal oropharynx. THROAT: Trace erythema, PND noted, no exudate NECK/THYROID: Neck supple, full range of motion, small submandibular nodes LUNGS: Generalized coarse breath sounds without wheezes or crackles HEART: RRR without murmur, nl S1, S2, no S3 or S4. DERMATOLOGIC: Perhaps slight flushing on the face, no other exanthem noted, no facial edema Initial Vital Signs Initial Vital Signs: Vital Signs Temperature 97.9 F 09/10/18 17:52 Pulse Rate 68 09/10/18 17:52 Respiratory Rate 18 09/10/18 17:52 Blood Pressure 204/89 H 09/10/18 17:52 Pulse Oximetry 96 09/10/18 17:52 <Luis Rose DO - Last Filed: 09/11/18 04:34> Initial Vital Signs Initial Vital Signs: Vital Signs Temperature 97.9 F 09/10/18 17:52 Pulse Rate 68 09/10/18 17:52 Respiratory Rate 18 09/10/18 17:52 Blood Pressure 204/89 H 09/10/18 17:52 Pulse Oximetry 96 09/10/18 17:52 Course <Crystal Porter PA-C - Last Filed: 09/10/18 22:01> Additional Information: Patient is resting comfortably and feeling significantly improved prior to discharge. He has not developed any urticaria or facial swelling. He will continue jrej-bcf-[id number] antihistamine as needed, and advised discontinuing antibiotics since no pneumonia on chest x-ray. His symptoms are consistent with viral URI. He does have COPD but has not needed inhalers or any specific treatment for this. Orders Ordered: Discontinued Medications Loratadine (Claritin) 10 mg PO NOW ONE Stop: 09/10/18 18:51 Last Admin: 09/10/18 19:30 Dose: 10 mg Vital Signs - 8 hr 09/10/18 17:52 09/10/18 19:23 09/10/18 20:05 Temperature 97.9 F Pulse Rate 68 70 61 Respiratory Rate 18 19 12 Blood Pressure 204/89 H 172/88 H Blood Pressure [Right Arm] 172/88 H Pulse Oximetry 96 97 99 <Luis Rose DO - Last Filed: 09/11/18 04:34> Orders Ordered: Discontinued Medications Loratadine (Claritin) 10 mg PO NOW ONE Stop: 09/10/18 18:51 Last Admin: 09/10/18 19:30 Dose: 10 mg Vital Signs - 8 hr 09/10/18 17:52 09/10/18 19:23 09/10/18 20:05 Temperature 97.9 F Pulse Rate 68 70 61 Respiratory Rate 18 19 12 Blood Pressure 204/89 H 172/88 H Blood Pressure [Right Arm] 172/88 H Pulse Oximetry 96 97 99 MDM - URI/Sore Throat <Crystal Porter PA-C - Last Filed: 09/10/18 22:01> Imaging Data Chest x-ray: Radiologist's impression: Note: taken 09/09 View Report History [address] [address] XRay Report Signed Patient: Ryland Quevedo MR#: [id number] : 1950 Acct:[id number] Age/Sex: 67 / M Date of Service: 09/09/18 Loc: DI Accession Number: [id number] Procedure: XR chest 2V Ordering Provider: Óscar Manriquez P.A-C PROCEDURE: XR CHEST 2V INDICATIONS: cough TECHNIQUE: 2 views of the chest were acquired. COMPARISON: [facility], , CHEST 2 VIEW, 12/03/2016, 11:12. [facility], , CHEST 2 VIEW, 09/09/2015, 16:32. FINDINGS: Surgical changes and devices: None. Lungs and pleura: No pleural effusions or pneumothorax. Lungs are clear. Mediastinum: Mediastinal contours are normal. Heart size is normal. Bones and chest wall: No suspicious bony abnormalities. Soft tissues appear unremarkable. IMPRESSION: Normal for age, source of current symptoms is not seen. Dictated by: Maco Peralta M.D. on 09/09/2018 at 13:42 Approved by: Maco Peralta M.D. on 09/09/2018 at 13:42 Discharge Plan Departure Patient Disposition: Home Clinical Impression: Medication reaction Discharge Date/Time: 09/10/18 20:06 Interventions: ED Discharge Assessment Last Done: 09/10/18 20:05 Instructions: DI for Adverse Drug Reaction -- Allergic Activity Restrictions/Additional Instructions: Since you are feeling better, it is okay for you to monitor at home. Please avoid drugs in the erythromycin family including azithromycin in the future since this seems to have cause some flushing reaction. Please take over-the- counter Zyrtec (cetirizine) 10 mg daily at bedtime to help with the medicine reaction, and this also may help your postnasal drip and drainage in your chest. You can add [id number]-tunepfk Mucinex/guaifenesin to help with chest congestion, and you can continue decongestant if you have been taking this as well. Your chest x-ray was normal (no pneumonia) and this is likely a head and chest cold virus. Typically these resolve on their own, so you can stop antibiotics altogether and just give this a little time treating with the medicines above. Please return as we talked about if you have any acutely worsening symptoms, and otherwise follow up with your PCP in a few days for recheck. This is especially important due to your history of COPD. Please keep a list of your medicines and allergies with you since you have had several reactions in the past. Prescriptions: Discontinued azithromycin 250 mg tablet See Label Instructions PO .COMPLEX Qty: 6 RF: 0 No Action Glucose: Test Strips QDAY Qty: 100 RF: 3 gabapentin 600 mg tablet 600 mg PO 5XD MDD 4 PRN (Reason: Pain (Scale Score 1-3)) Qty: 450 RF: 3 glipizide 5 mg tablet 5 mg PO QDAY Qty: 90 RF: 3 ketoconazole 2 % shampoo 1 applictn TOP 2XW 28 Days Qty: 120 RF: 3 hydrocortisone 2.5 % cream 1 applictn TOP BID Qty: 28 RF: 3 ketoconazole 2 % cream 1 applic Topical DIRECTED RF: 0 hydromorphone 1 tab PO QID RF: 0 Referrals: Cas Marin MD [Primary Care Provider] - <Luis Rose DO - Last Filed: 09/11/18 04:34> Cosign ED Attending Rosaature Attestation: I was immediately available in the department for consultation. Documentation has been reviewed. I agree with assessment and plan.
[2018-09-10 19:23] VITALS: BP 172/88; PULSE 70; RESP 19; O2SAT 97
[2018-09-10] MEDS: LORATADINE 10 MG TABLET PO (19:30)
[2018-09-10 20:05] VITALS: BP 172/88; PULSE 61; RESP 12; O2SAT 99
== END 2018-09-10 20:06 | disposition home or self-care (01) ==
PROVIDERS: Emergency Provider Internal Medicine; PCP Family Medicine
DX: R06.2 Wheezing (principal); T50.905A Adverse effect of unspecified drugs, medicaments and biological substances, initial encounter; R05 Cough
CPT/HCPCS: 99282; 99283

== ENCOUNTER → 2018-10-14 08:42 | Outpatient (CLI) | payer MEDICARE, OTHER, SELFPAY ==
--- NOTE | 2018-10-14 | DI.MRI.S_ITS ---
PROCEDURE: MR LUMBAR SPINE WO CON INDICATIONS: DISC DISORDER. Status post remote L4-L5 laminectomy and relatively recent microdiscectomy which was performed in June,. TECHNIQUE: Noncontrast sagittal T1 spin echo and T2 fast echo, sagittal STIR, axial T1 and T2 fast spin echo through the lumbar spine. In cases with scoliosis, additional coronal T2 fast spin echo may be performed. COMPARISON: [facility], MR, MR LUMBAR SPINE WO/W CON, 05/24/2018, 10:55. [facility], MR, L-SPINE WITHOUT CONTRAST, 02/01/2017, 18:36. FINDINGS: Image quality: Excellent. Alignment and Curvature: There is normal bony alignment. Bone Marrow: No worrisome bone marrow signal abnormalities. No acute vertebral body compression fractures. Spinal Cord: Conus medullaris terminates at the T12-L1 level. Visualized cord demonstrates normal signal and size. Paraspinous Soft Tissues: No paravertebral masses. T12-L1: No canal stenosis or foraminal stenosis. Normal facets. L1-L2: Mild disc bulge. No canal stenosis. No foraminal stenosis. L2-L3: Unchanged mild disc bulge with unchanged moderate canal stenosis. A far left lateral disc protrusion has developed. However, it occurs below the exiting left L2 nerve root in the foramen, and does not compromise the nerve root. Reference image 11/2 (T2 sagittal sequence) and image 16/5 (T2 axial sequence). L3-L4: Interval left hemilaminotomy with expected postsurgical changes. Diffuse disc bulge. Expected postsurgical appearance with improvement in left lateral recess material. No evidence of recurrent disc protrusion. Bilateral facet hypertrophy and foraminal narrowing as before. L4-L5: Unchanged. Remote posterior laminectomy. Disc bulge with right paracentral disc protrusion resulting in right lateral recess compromise. Unchanged bilateral foraminal narrowing. L5-S1: Stable findings. Diffuse disc bulge. No significant canal stenosis. Stable bilateral foraminal narrowing. Bilateral facet hypertrophy. IMPRESSION: 1. Interval left hemilaminotomy at L3-L4 with significant improvement and expected postsurgical changes. There is diffuse disc bulge. There is no recurrent disc protrusion. 2. Multilevel canal stenosis as previously described. 3. Development of a far left lateral disc protrusion at L2-L3 which does not appear to compromise the left L2 nerve root in the foramen. Dictated by: Jimmy Sears M.D. on 10/14/2018 at 10:02 Approved by: Jimmy Sears M.D. on 10/14/2018 at 11:05
== END ==
PROVIDERS: PCP Family Medicine; Visit Provider Orthopaedic Surgery Orthopaedic Surgery of the Spine
DX: M51.16 Intervertebral disc disorders with radiculopathy, lumbar region (principal); M51.17 Intervertebral disc disorders with radiculopathy, lumbosacral region; M48.061 Spinal stenosis, lumbar region without neurogenic claudication; M48.07 Spinal stenosis, lumbosacral region
CPT/HCPCS: 72148

== ENCOUNTER → 2018-11-22 13:41 | Outpatient (CLI) | payer MEDICARE, OTHER, SELFPAY ==
[2018-11-22 15:01] LABS: Influenza A and B by PCR Rapid Negative (Negative)
== END ==
PROVIDERS: PCP Family Medicine; Visit Provider Registered Nurse
DX: R50.9 Fever, unspecified (principal)
CPT/HCPCS: 87400

== ENCOUNTER → 2018-11-22 14:27 | Outpatient (CLI) | payer MEDICARE, OTHER, SELFPAY ==
--- NOTE | 2018-11-22 14:31 | DI.RAD.S_ITS ---
PROCEDURE: XR CHEST 2V INDICATIONS: productive cough TECHNIQUE: 2 views of the chest were acquired. COMPARISON: [facility], CR, XR CHEST 2V, 09/09/2018, 13:12. FINDINGS: Surgical changes and devices: None. Lungs and pleura: Lungs are clear. No pleural effusions or pneumothorax. Mediastinum: Mediastinal contours are normal. Heart size is normal. Bones and chest wall: No suspicious bony abnormalities. Soft tissues appear unremarkable. IMPRESSION: No acute disease. Dictated by: Tae Sotelo M.D. on 11/22/2018 at 16:25 Approved by: Tae Sotelo M.D. on 11/22/2018 at 16:25
== END ==
PROVIDERS: PCP Family Medicine; Visit Provider Registered Nurse
DX: R05 Cough (principal); R50.9 Fever, unspecified
CPT/HCPCS: 71046; 87400

== ENCOUNTER → 2019-01-19 07:17 | Outpatient (CLI) | payer MEDICARE, OTHER, SELFPAY ==
[2019-01-19 08:43] LABS: Add Manual Diff / Slide Review NO; Basophils Absolute Auto 0 /uL (0-100); Basophils Percent Auto 0.9 % (0-2); Eosinophils Absolute Auto 200 /uL (0-450); Eosinophils Percent Auto 3.8 % (2-4); Hematocrit 51.6 % (41-53); Lymphocytes Absolute Auto 1100 /uL (1100-4500); Lymphocytes Percent Auto 20.9 % (25-40); Mean Corpuscular HGB Conc 32.9 % (30-36); Mean Corpuscular Hemoglobin 28.9 PG (26-34); Mean Corpuscular Volume 87.8 fL (80-100); Monocytes Absolute Auto 400 /uL (0-900); Monocytes Percent Auto 6.8 % (3-14); Neutrophils Absolute Auto 3700 /uL (1500-7000); Neutrophils Percent Auto 67.6 % (50-75); Platelet Count 187 X10^3/uL (150-400); Red Blood Cell Count 5.88 X10^6/uL (4.5-5.9); White Blood Cell Count 5.5 X10^3/uL (4.5-11.0)
[2019-01-19 09:03] LABS: Alanine Aminotransferase 45 IU/L (21-72); Albumin 4.5 g/dL (3.5-5.0); Albumin Globulin Ratio 1.3 (1.0-2.8); Alkaline Phosphatase 65 U/L (38-126); Aspartate Aminotransferase 47 IU/L (17-59); Bilirubin Total 0.7 mg/dL (0.2-1.3); Blood Urea Nitrogen 19 mg/dL (9-20); Calcium 9.4 mg/dL (8.4-10.2); Carbon Dioxide 26 mmol/L (22-32); Chloride 101 mmol/L (98-107); Cholesterol 153 mg/dL (140-199); Estimated Glomerular Filt Rate > 60.0 mL/min (>60); Globulin 3.4 g/dL (1.7-4.1); Glucose 127 mg/dL (80-110); HDL Cholesterol 36 mg/dL (40-60); HEMOLYSIS < 15 (0-50); Hemoglobin A1C% w Est Avg Glu 6.4 % (4.0-6.0); LDL Cholesterol Calculated 87 mg/dL (<100); Potassium 4.3 mmol/L (3.4-5.1); Sodium 139 mmol/L (137-145); Total Protein 7.9 g/dL (6.3-8.2); Triglycerides 150 mg/dL (35-150)
[2019-01-19 09:35] LABS: Prostate Specific Antigen Scrn 1.33 ng/mL (0.1-4.0)
[2019-01-19 09:36] LABS: TSH w/ Reflex to FT4 1.95 uIU/mL (0.47-4.68)
== END ==
PROVIDERS: PCP Family Medicine; Visit Provider Family Medicine
DX: E11.9 Type 2 diabetes mellitus without complications (principal); I10 Essential (primary) hypertension; N40.0 Benign prostatic hyperplasia without lower urinary tract symptoms; Z01.818 Encounter for other preprocedural examination; Z01.812 Encounter for preprocedural laboratory examination; Z12.5 Encounter for screening for malignant neoplasm of prostate
CPT/HCPCS: 36415; 80053; 80061; 83036; 84443; 85025; G0103

== ENCOUNTER 2019-02-01 06:49 | Inpatient (IN) | payer MEDICARE, OTHER, SELFPAY ==
[2019-01-24 07:10] VITALS: BMI 31.0
[2019-02-01] VITALS (28 sets, daily range): BP systolic 103–181; BP diastolic 43–80; PULSE 57–83; RESP 6–17; TEMP 35.7–37.2; O2SAT 92–99; BMI 31.0
--- NOTE | 2019-02-01 | DI.RAD.S_ITS ---
PROCEDURE: XR LUMBAR SPINE 2-3V INDICATIONS: L4-5, L5-S1 TLIF TECHNIQUE: 2 views of the lumbar spine were acquired. COMPARISON: [facility], CR, XR LUMBAR SPINE FLEXION EXTENSION, 06/14/2017, 9:18. [facility], MR, MR LUMBAR SPINE WO CON, 10/14/2018, 9:32. [facility], CR, XR LUMBAR SPINE 2-3V, 07/01/2018, 13:23. FINDINGS: 2 intraoperative fluoroscopy images demonstrate discectomy and posterior fusion at L3-L4 and L4-L5. IMPRESSION: Discectomy and posterior fusion at L3-L4 and L4-L5. Dictated by: Piero Che M.D. on 02/01/2019 at 13:44 Approved by: Piero Che M.D. on 02/01/2019 at 13:46
[2019-02-01] MEDS: GABAPENTIN 600 MG TABLET PO (07:17)
[2019-02-01] MEDS: LACTATED RINGERS 1,000 ML 42 ML IV ×2 (07:18→09:45)
--- NOTE | 2019-02-01 07:37 | PM.PREOP ---
Pre-operative Note Interval Note History & Physical reviewed/Exam performed by Physician: Yes Changes to H&P: No
[2019-02-01] MEDS: CLINDAMYCIN 900 MG/50 ML PIGGYBACK 50 MG IV ×2 (07:46→16:52)
[2019-02-01] MEDS: BUPIVACAINE LIPOSOME 266 MG/20 ML VIAL INJ (08:47)
[2019-02-01] MEDS: BUPIVACAINE 0.25% W/ EPI 30 ML VIAL INJ (08:47)
[2019-02-01] MEDS: ACETAMINOPHEN IV 1,000 MG/100 ML VIAL 400 MG IV (09:44)
--- NOTE | 2019-02-01 11:48 | PM.OP.1 ---
Operative Date/Time/Diagnoses Date of procedure: 02/01/19 Time of procedure: 08:05 Pre-op diagnosis: 1. L3-4, L4-5 recurrent disc herniation 2. L3-4, L4-5 spinal stenosis with radiculopathy 3. 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 L3-4, L4-5 Postero-lateral and posterior interbody fusion 2. L3-4, L4-5 interbody cage placement. 3. L3-4, L4-5 decompressive laminectomy with bilateral facetecomies 4. L3-4, L4-5 Posterior segmental instrumentation 5. Pownal of bone marrow from iliac crest 6. Utilization of microsurgical technique and operating microscope Same procedure as scheduled: Yes Indications: Patient has been having chronic back pain and worsening lumbar radiculopathy. The patient had prior laminectomy and microdiskectomy on 2 separate surgeries with temporary relief of his symptoms over the last several years. Patient has progressive worsening of his back pain as long as radiculopathy with repeat MRI showing a recurrent disc herniation at both levels. Patient failed multiple conservative management with worsening pain weakness and numbness in her lower extremity. Patient has been having difficulty performing activity of daily living. After discussing risks benefits of treatment options, patient elected proceed with surgery. Surgeon: Chiki Avila Harvest Supervisor: Gabby Eisenberg Click Yes if Unassisted: No Anesthesia Type: General Operative Notes Closure Type: primary Specimen(s): none sent Prosthetic devices, grafts, tissues, transplants, or devices: GLobus creo MIS screws, Rise cages Applied: catheter Estimated Blood Loss (mL): 100 Blood products transfused: none Procedure in detail: Patient was seen in the preoperative area. Risks and benefits of the surgery was discussed with the patient. Informed consent was obtained from the patient and placed in the chart. Surgical site was marked. Patient was taken to the operative room. General anesthesia was administered. Prophylactic antibiotic was given to the patient less than 30 min before the incision was made. Patient was placed into a prone position on the Shaquille table. Patient's back was then prepped and draped in the sterile fashion. Time-out was performed at this time. Using AP and lateral C-arm imaging the interval between L3-4, L4-5 was identified and marked on patient's back. A 2 inch incision 2 in from midline was made on the left side first. The fascia was incised in line with skin incision. Globus MARS retractors was placed inside the incision and docked onto the L3 and L4 lamina. Using microsurgical technique and operating microscope, a L3 and L4 laminectomy and L3-4, L4-5 facetectomy was performed using a Kerrison rongeur. During the process of decompression more than 75% of bilateral L3-4, L4-5 facets were removed in order to decompress the spinal canal and the lateral recess. The L3-4, L4-5 level was grossly unstable after the decompression was completed and requiring the fusion procedure. The disc space at L3-4, L4-51 was identified. And a total diskectomy was performed at L3-4, L4-5 level. The endplates were decorticated using a rasp and shaver. The total diskectomy and decortication was performed at L3-4, L4-5 level in order to to accomplish a L3-4, L4-5 fusion. The local bone from the laminectomy and facetectomy was saved for local bone grafting. After the total diskectomy and decortication was completed, Bio4 bone graft material was combined with local bone that was harvested earlier. At this time, a separate skin is incision was made over the iliac crest. A Jamshidi needle was inserted into the iliac crest through a separate skin incision. 5 cc of bone marrow aspiration was obtained through the separate skin incision using a Jamshidi needle from the iliac crest. The bone marrow aspiration was combined with local bone and the Bio4 bone grafting material. The bone grafting material was placed into the L3-4, L4-5 interbody space along with two cages, one expandable cage at each level. The cages were expanded to their maximum height using the torque limiting screwdriver. At this time a mirror image incision was made on the right side. The fascia was incised in line with the skin incision. Globus MARS retractor was inserted and docked onto the L3-4, L4-5 posterolateral gutter. Using the power drill, posterior-lateral decortication was performed at L3-4, L4-5 level until bleeding cortical bone was identified. The remaining bone grafting material was placed into the L3-4, L4-5 posterior lateral gutter he order to accomplish posterolateral fusion at the L3-4, L4-5 levels. Using the double C-arm technique, pedicle screws were placed into the L3, L4, L5 pedicles bilaterally. This was done by placing the Jamshidi needle into the pedicles, then placing the guidewires over the Jamshidi needle, and finally placing the cannulated screws over the guidewires bilaterally. After the pedicle screws were placed, 2 titanium rods was locked into the heads of the pedicle screws using locking caps and torque limiting screwdriver. Total 6 pedicles screws were placed. After all the hardware was placed, and confirmed with AP and lateral C-arm imaging, the wound was then irrigated with sterile normal saline and packed with Ray-Hazel gauze for 3 min to accomplish hemostasis. After the gauze was removed the deep fascia was closed with #1 Vicryl suture. The subcutaneous layer was closed with 2-0 Vicryl. The skin was closed with skin della. Patient tolerated the procedure well. There were no complications. Complications: none Condition: stable Disposition: PACU Plan for aftercare: Admit to inpatient hospital
--- NOTE | 2019-02-01 12:17 | SUR.PHASEI ---
Healy emptied of 350 ml clear, maritza urine. This amount was claimed by the OR.
[2019-02-01] MEDS: INSULIN ASPART 100 UNIT/ML 10ML VIAL SUBCUT (12:29)
--- NOTE | 2019-02-01 12:34 | SUR.PHASEI ---
[address] Woodall; Order received 1229 Insulin given
[2019-02-01] MEDS: HYDROMORPHONE 2 MG INJ 0.5 MG IV ×2 (12:37→12:56)
[2019-02-01] MEDS: HYDROMORPHONE 2 MG INJ 1 MG IV ×2 (12:44→13:11)
[2019-02-01] MEDS: hydrOXYzine 50 MG/ML INJ IM (12:53)
--- NOTE | 2019-02-01 13:49 | SUR.PHASEI ---
Report called to floor; plan to wait until he does not need reminders to breath. Repositioned to left side, no longer moaning or complaining of pain. Dressing remains CDI, Tolerating ice chips well. Oriented. Have discussed pain control at length, patient is aware that he will have pain and that our goal is to manage the pain level. Returned to 4LNP O2 to see if this helps maintain adequate O2 sat.
--- NOTE | 2019-02-01 14:06 | SUR.PHASEI ---
Seems much more comfortable on side, not needing reminders to breath. Sleeping.
--- NOTE | 2019-02-01 14:32 | SUR.PHASEI ---
1419 Pt. was ready to transfer; floor declined to accept him. Placed into PACU hold. VSS, Resp unlabored, even and regular. Skin warm and dry. Sleeping w/o moaning, grimace, or other indicators of pain.
--- NOTE | 2019-02-01 14:46 | CM.DPNOTE ---
Patient is a 68 year old male who was admitted today 02/01/19 for planned Lumbar Laminectomy. Pt has MCR and REG PPO for insurance and his PCP is Dr. Cas Marin. EMR was reviewed. Per sounding device operator, pt off the floor for surgery and was still off the floor at 1430. PT/OT not ordered yet as pt still in surgery. Plan: SW to follow tomorrow after pt returns to floor from surgery for likely PT/OT eval to determine d/c planning needs. DILLON Dorsey
--- NOTE | 2019-02-01 15:08 | SUR.PHASEI ---
Patient continues to sleep, VSS, no evidence of pain.
--- NOTE | 2019-02-01 15:38 | SUR.PHASEI ---
Dr. Woodall here, informed him of patient status. Ok if coordinator wants to put him in ICU/floor care for closer monitoring. Resp even and regular, skin warm and dry, no grimace, moaning.
--- NOTE | 2019-02-01 15:54 | PC.NURSE ---
Day Shift- Report rec'd from NEHEMIAH Rojas in PACU at 1355, pt will be kept longer in PACU until pt doesn't need stimulation to take breaths. Update rec'd from Crystal at 1422, states pt is stable to transfer to unit. Pt's RR is 8 recorded in [email or web address]. This investigative writer spoke with RN Coordinator stating this RN not comfortable with receiving this patient with RR of 8. NEHEMIAH Rojas in PACU aware. Brief report given to NEHEMIAH Carrillo on AC unit for shift change regarding above information.
--- NOTE | 2019-02-01 16:05 | SUR.PHASEI ---
Allowed to sleep throughout PACU hold. Resp even and regular, VSS. Aroused to nurse voice upon transfer. C/O pain It hurts like hell upon arrival to ICU. Skin warm and dry, Scant drainage on dressing as noted by TELETYPESETTER OPERATOR. Pt. repositioned in ICU. SCDs on. Bed remains elevated as staff are providing care. No further questions from staff. Clothing and black bag placed in closet.
[2019-02-01] MEDS: SODIUM CHLORIDE 0.9% 1,000 ML 100 ML IV (16:46)
[2019-02-01] MEDS: OXYCODONE IR 5 MG TABLET 10 MG PO ×3 (16:46→23:22)
[2019-02-01] MEDS: ACETAMINOPHEN 325 MG TABLET 650 MG PO ×2 (16:54→23:26)
--- NOTE | 2019-02-01 18:16 | PC.NURSE ---
Addendum entered by Carlota Andrews R.N. 02/01/19 21:58: cont. Pt had complained of catheter pain. States It feels like a forever urge to pee. Discussed options for catheter removal. Pt states that he does not wish to have to get up with each void. Unsure if he will be able to void without standing. Pt decides to leave catheter in place at this time. Addendum entered by Carlota Andrews R.N. 02/01/19 21:43: 2130 - Pt out of bed. able to ambulate to nursing station and then back to bed. Reports weakness in LE and ache to anterior legs. 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 Assist to position for comfort. Call light in reach. Original Note: 1615 - Pt to room from PACU. Pt drowsy but appropriate. While awake pt c/o significant pain and states that It shouldn't hurt this bad, it was minimally invasive. Drsg with scant shadow drainage to right lateral edge. While awake RR is 14, when dozing RR 8, on 2L O2, sats >92%. Oriented to room and routine. Ice pack provided. Repeatedly repositioned for comfort. Declines SCD's at this time r/t neuropathy. Discussed pain control options, pt agreeable to try PO meds, Rating pain 8 of 10, percolone and APAP given. Call light in reach. Monitor. 1800 - Pt snoring, RR 8 bpm. Sats 97% on 2L.
[2019-02-01] MEDS: HYDROMORPHONE 0.5 MG INJ IV (19:43)
[2019-02-01] MEDS: SENNOSIDES 8.6 MG TABLET 17.2 MG PO (19:58)
[2019-02-01] MEDS: DOCUSATE 100 MG CAPSULE PO (19:59)
[2019-02-02] MEDS: CLINDAMYCIN 900 MG/50 ML PIGGYBACK 50 MG IV (00:28)
[2019-02-02] MEDS: HYDROMORPHONE 0.5 MG INJ IV ×3 (01:43→08:13)
[2019-02-02] MEDS: hydrOXYzine pamoate 25 MG CAPSULE PO ×3 (02:41→18:50)
[2019-02-02] MEDS: OXYCODONE IR 5 MG TABLET 10 MG PO ×2 (02:41→06:16)
--- NOTE | 2019-02-02 02:53 | PC.NURSE ---
Awake, c/o tops of thighs being numb-can feel pressure only, but when touched with glove with ice can feel cold. Also c/o being hungry and pain. Fed and medicated.
[2019-02-02] MEDS: SODIUM CHLORIDE 0.9% 1,000 ML 100 ML IV (04:35)
[2019-02-02 04:38] VITALS: BP 119/40; PULSE 80; RESP 14; TEMP 36.7; O2SAT 97
[2019-02-02 05:20] LABS: Hematocrit 41.8 % (41-53); Hemoglobin 13.7 g/dL (13.5-17.5)
[2019-02-02 07:47] VITALS: BP 124/51; PULSE 61; RESP 16; TEMP 36.9; O2SAT 98
[2019-02-02] MEDS: DOCUSATE 100 MG CAPSULE PO ×2 (08:12→22:38)
--- NOTE | 2019-02-02 09:11 | PM.PNPO.1 ---
Subjective Date Patient Seen: 02/02/19 Time Patient Seen: 09:11 Interval history: POD #1 s/p L3-[address] Avila. Patient has had significant pain control issues. He was on oxycodone 5/325 mg prior to surgery. He notes new anterior thigh pain right greater than left since surgery. He states it is a 1/10 and not super bothersome. He has not been ambulating with physical therapy. He has a Rehman catheter in place. He notes a history of an enlarged prostate. He has been on O2 since surgery. He notes difficulty falling asleep and requesting something to help with this. Exam Vital Signs (past 8 hours): - 02/02/19 04:38 02/02/19 07:47 Temperature 98.0 F 98.5 F Pulse Rate 80 61 Respiratory Rate 14 16 Blood Pressure 119/40 L 124/51 L Pulse Oximetry 97 98 Oxygen Delivery Method Nasal Cannula Oxygen Flow Rate 2 Narrative Exam Narrative: Patient is sitting at bedside chair no acute distress. He is alert and oriented x3. Calves are soft, compressible, nontender bilaterally. Pulses are symmetrical. He is able to actively dorsiflex and plantar flex. Dressing on back is CDI. Rehman in place. Objective Labs Result Diagrams: 02/02/19 04:50 Labs: Laboratory Results - last 24 hr 02/02/19 02/02/19 04:30 04:50 Hgb 13.7 Hct 41.8 Nasal Screen MRSA (PCR) Negative for mrsa Assessment & Plan Post-op (1) History of back surgery: (2) S/P lumbar fusion: (3) Controlled type 2 diabetes mellitus without complication: (4) Benign prostatic hyperplasia: Postoperative Procedures Operation Date: 02/01/19 07:45 Actual Procedures Side Surgeon p L3-4,L4-5 TLIF w/Posterior Instru. Chiki Avila MD Patient will mobilize with PT today. No excessive bending, lifting, or twisting. DC rehman catheter today. Start Melatonin at night. Advised he can also take Vistaril before bed as well. Changed pain medication to Dilaudid 2-4 mg Q3HR as needed. Will attempt to get patient on room air today. Patient will likely need 2-3 days for recovery following surgery. Quality VTE Deep Vein Thrombosis/Pulmonary Embolism Present on Admission: No
--- NOTE | 2019-02-02 09:57 | PC.NURSE ---
Addendum entered by Tae Ojeda R.N. 02/02/19 13:56: Pt cont to rate back pain 8-10/10 and reports increased pain to right upper leg 6-8/10. Called to NIHARIKA Guerra and reported assessment findings. Order received to 10 mg decadron IV now x1 dose with instruction to call PA back if ineffective at relieving pain. No add'l orders received at this time. Addendum entered by Tae Ojeda R.N. 02/02/19 13:30: Pt has remained 93-95% on RA. Original Note: Rec'd pt sitting up to chair. AAO x3 and making needs known with clear speech. Pt expresses anxiety r/t surgery, hospital stay, pain. Emotional support provided. Pt rates pain 8-10/10 on 0-10 pain scale despite pharm and non pharm pain mgmt. VSS and RR are even/unlabored with mild facial grimacing noted with movement. Administered IVP dilaudid as ordered. Pt appears comfortable sitting up to chair eating breakfast, but cont. to rate pain 8/10. Addressed with NIHARIKA on rounds. 1PA back to bed. 0930 Healy cath d/c'd by SN with balloon tip deflated/intact. Pt tolerated well. RA trial with cont. pulse ox initiated. Urinal, call light, belongings in easy reach. Pt requesting to try to rest for now. Will monitor.
[2019-02-02] MEDS: HYDROMORPHONE 2 MG TABLET PO (10:07)
[2019-02-02] MEDS: ACETAMINOPHEN 325 MG TABLET 650 MG PO ×2 (10:07→15:49)
--- NOTE | 2019-02-02 10:52 | PT.IIE ---
Current Diagnoses Type 2 diabetes mellitus without complications (02/01/19) Other spondylosis with radiculopathy, lumbar region (02/01/19) Spinal stenosis, lumbar region with neurogenic claudication (02/01/19) Postlaminectomy syndrome, not elsewhere classified (02/01/19) Benign prostatic hyperplasia without lower urinary tract symptoms (02/01/19) Arthrodesis status (02/01/19) Other specified postprocedural states (02/01/19) Surgery Performed Operation Date: 02/01/19 07:45 Actual Procedures p L3-4,L4-5 TLIF w/Posterior Instru. - Chiki Avila MD Surgical History (Last Updated 01/24/19 @ 08:11 by Jazzy Messer, RN) Hx of hand surgery (Acute ~2004) Hx of microdiscectomy (Acute 07/01/18) Status post epidural steroid injection (Acute) H/O colonoscopy (Resolved 07/08/15) H/O sinus surgery (Resolved 2003) History of elbow surgery (Resolved) History of sebaceous cyst (Resolved 2000) Hx of inguinal hernia surgery (Resolved 1996) Status post laminectomy (Resolved) Medical History (Last Updated 01/24/19 @ 07:47 by Jazzy Messer RN) Prepatellar bursitis of right knee (Chronic) Left sided sciatica (Chronic) Essential hypertension (Chronic) Osteoarthritis of lower back (Chronic 09/19/14) Tear of rotator cuff (Chronic 09/19/14) Benign prostatic hyperplasia (Chronic 01/02/15) Cramps of lower extremity (Chronic 01/02/15) Controlled type 2 diabetes mellitus without complication (Chronic 04/30/16) COPD (chronic obstructive pulmonary disease) (Acute) Peripheral neuropathy (Acute) Pneumonia (Acute) Spinal stenosis (Acute) Back pain (Acute) 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) Anxiety (Chronic) BPH (benign prostatic hyperplasia) (Chronic) Degenerative arthritis of lumbar spine (Chronic) Degenerative disc disease (Chronic) GERD (gastroesophageal reflux disease) (Chronic) Inflamed internal hemorrhoid (Chronic 02/2018) Lumbar disc herniation with radiculopathy (Chronic) Physical Therapy Inpatient Evaluation/Re-Eval M1 PT/OT-IP Prior Functional Status Start: 02/02/19 12:05 Freq: NEEDED Status: Active Protocol: Document 02/02/19 10:52 AB (Rec: 02/02/19 12:21 AB [id number]) Medical Review Prior Functional Status Medical History Reviewed Yes Communication able to make needs known Mobility and Gait pt stated that he is independent with all mobilities and ambulation without AD Social History Household Members none Living Arrangements Mobile home Number of Floors (Floors) One Floor Number of Stairs To Enter/Railing? 3 steps to enter with bilateral rails Home Environment Standard Height Toilet Tub/Shower Home Equipment Front Wheel Walker Shower Seat with Backrest Hand Held Shower Additional Social History Comment pt sleeps on a rocker recliner prior to surgery but plans to use his bed when he gets home M2 PT-IP Current Condition Start: 02/02/19 12:05 Freq: NEEDED Status: Active Protocol: Document 02/02/19 10:52 AB (Rec: 02/02/19 12:21 [id number]) Physical Therapy Current Condition Current Condition Evaluation Date 02/02/19 Treatment Diagnosis s/p L3-4,L4-5 fusion/lami; difficulty in walking Onset Date 02/01/19 Precautions Lumbar Precautions Log Roll No Twisting Limit Bending Lifting Restriction of 10 lbs Gait Belt above Incisional Area M3 PT-IP Subjective Start: 02/02/19 12:05 Freq: NEEDED Status: Active Protocol: Document 02/02/19 10:52 AB (Rec: 02/02/19 12:21 [id number]) Subjective Physical Therapy Visit Type Type Initial Evaluation Visit Start Time 10:52 Visit Stop Time 11:25 Total Visit Minutes 33 Number of DIRECTOR OF NATIONAL SALES Visits 0 Physical Therapy Visit Comments Patient Comments c/o a lot of pain; stated that he was given a lot of pain meds but none of them are working Therapy Pain Assessment Pain When Pain Assessed At Rest Pain Present Pain Present Pain Reported Location Right Thigh Intensity 12 Scale Used Numeric (1 - 10) Pain Behaviors Calling Out Facial Grimacing Guarding Pain Management Techniques Apply Cold Re-positioning Timing of Activity with Medications M4 PT-IP Mobility and Gait Start: 02/02/19 12:05 Freq: NEEDED Status: Active Protocol: Document 02/02/19 10:52 AB (Rec: 02/02/19 12:21 AB [id number]) PT-Bed Mobility Assessment Rolling Type of Rolling Log Rolling Level of Assist Maximal Assistance Supine to Sit Supine to Sit Maximum Assistance 1 Person Assistance PT-Transfer Assessment Sit to and From Stand Sit to and from Stand Moderate Assistance 1 Person Assistance Use of Upper Extremities Equipment Transfer Assistive Device Gait Belt Front Wheeled Walker Orthotic/Prosthetic Devices or Brace: No Transfers Transfer Destination Toilet Transfer Technique pt ambulated using FWW Transfer Ability Level of Assist Minimal Assistance 1 Person Assistance Use of Upper Extremities Gait Assessment Gait Gait Assistance Required: Minimum Assistance Distance (Feet) 15 Assistive Devices Assistive Device Gait Belt Front Wheeled Walker Orthotic/Prosthetic Devices or Brace: No Gait Deviations General Gait Pattern Antalgic Factors Limiting Gait Function Factors Limiting Gait Function Decreased Activity Tolerance Pain Poor Balance PT-Balance Assessment Sitting Balance and Reactions Static Sitting Balance Ability Good Dynamic Sitting Balance Ability Good Standing Balance and Reactions Static Standing Balance Ability Fair Dynamic Standing Balance Ability Fair Device Used FWW M5 PT-IP Objective Assessments Start: 02/02/19 12:05 Freq: NEEDED Status: Active Protocol: Document 02/02/19 10:52 AB (Rec: 02/02/19 12:21 AB [id number]) Orientation Orientation/Cognition Level of Alertness Alert Orientation Name Age Birthday Month Date Year Day of Week Place Situation Safety Awareness Decreased Safety Awareness Memory Description No Deficits Noted Gross Range of Motion Lower Extremity ROM Assessment Within Functional Limits Strength Lower Extremity Strength Assessment Within Functional Limits M6 PT-IP Treatment Start: 02/02/19 12:05 Freq: NEEDED Status: Active Protocol: Document 02/02/19 10:52 AB (Rec: 02/02/19 12:21 AB [id number]) Physical Therapy Treatment Education Education Provided Precautions Weight Bearing Status Post-Op Packet Safety M7 PT-IP Assessment and Plan Start: 02/02/19 12:05 Freq: NEEDED Status: Active Protocol: Document 02/02/19 10:52 AB (Rec: 02/02/19 12:21 AB [id number]) PT Summary Assessment and Plan Potential Rehabilitation Potential Fair Status of Condition at Evaluation Evolving Summary Impairments Pain ROM Strength Balance Coordination Sensation Bed Mobility Transfers Gait Activity Tolerance Assessment Summary pt c/o increase pain affecting mobility and unable to tolerate much activity. pt is frustrated due to pain. informed nurse regarding pt's concerns. pt requiring min to max A with mobility. pt stated that his sister supposedly will help him at home but she has her own medical issues and will not be able to physically assist pt. pt will require SNF rehab at this time. Goals Bed Mobility Goal Contact Guard Assistance Transfer Goal Standby Assistance Front Wheeled Walker Gait Goal Standby Assistance Front Wheel Walker Gait Distance 200 Other Goals up/down 3 steps B rails SBA Days to Meet Goals 5 Frequency of Treatment Frequency Of Treatment Twice a Day Treatment Plan Physical Therapy Treatment Plan Bed Mobility Training Transfer Training Gait Training Therapeutic Exercise Balance Retraining Post Op Education Discharge Planning Hot or Cold Pack Neuromuscular Re-ed Coordination Retraining Manual Therapy Other Recommendations and Next Treatment ambulation Focus Recommendations To Nursing Amount of Assist Needed 1 Person Assist Discharge Recommendations PT Discharge Recommendations SNF Rehab
[2019-02-02 11:24] VITALS: BP 148/66; PULSE 74; RESP 18; TEMP 36.9; O2SAT 94
[2019-02-02] MEDS: GABAPENTIN 600 MG TABLET PO ×2 (12:12→22:38)
[2019-02-02] MEDS: Canagliflozin [Invokana] 100 MG 100 EACH PO (13:09)
[2019-02-02] MEDS: HYDROMORPHONE 2 MG TABLET 4 MG PO ×4 (13:11→22:38)
[2019-02-02] MEDS: DEXAMETHASONE 10 MG/ML VIAL IV (14:02)
[2019-02-02 14:12] VITALS: TEMP 36.8
--- NOTE | 2019-02-02 14:30 | CM.IDA ---
Addendum entered by DILLON Goldman 02/03/19 14:41: According to February at [facility], they have a bed available for pt and Kinga available to meet w/pt today to discuss any questions pt has about DC to [facility]. Pt will likely be ready to DC to [facility] Wednesday. Following closely. SANTOS Original Note: Initial DCP Assessment Note: Pt is a 68 yo male, resident of [place], pt now POD#1 from spinal fusion w/ Dr Avila. PCP: Tania Payer: Medicare/[employer]. Met w/pt, explained role. Pt's sister Terese P# [phone] and son Dimitri P# [phone] in room, pt gives permission to continue. 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 Pt has h/o prior spinal surgery, after which his post operative course was complicated by a nicked nerve and hematoma per pt. Pt's passed in October 2018. Pt explains he has been in a lot of pain post operatively this time and asks this ENGINEER SPECIALIST to make sure everything at his surgical site is being thoroughly checked. Assured pt his concerns would be relayed to nursing staff. Reviewed DCP options. Pt explains he will have no assistance once home. Therapy team has assessed today and recommending SNF. Pt agreeable to SNF and requests referral at [facility]. This ENGINEER SPECIALIST explained Medicare SNF coverage. Gave referral to Ana at [facility] today and requested that community outreach advocate Kinga visit pt tomorrow to review next steps in this referral process and discuss bed availability/roommate availability w/pt and family. DILLON Goldman Discharge Planning/Care Management CM Discharge Assessment Start: 02/02/19 14:19 Freq: Status: Active Protocol: Document 02/02/19 14:22 SANTOS (Rec: 02/02/19 14:29 SANTOS [id number]) Discharge Planning Assessment Assigned Motor Vehicle Assembler DILLON Glass DPOA/Assigned Designee Name Vaughn Croft, sister/DPOA Contact Information [phone] Advance Directives? No History Provided By Patient Prior Living Arrangements Mobile home Household Members none Type of transporation used prior to Drives own vehicle admit Independent with ADL's Yes Is patient alert and oriented? Yes Patient/Family Preference Snf Facility Barriers to Discharge Yes Comment No assistance available at home. Discharge Plan Snf Facility Transportation Arrangement w/c van Referrals Initiated Snf SNF/HH Preference [facility] Whiteboard Updated in Patient Room with Yes name and ext. # of Motor Vehicle Assembler Review Status In Process
--- NOTE | 2019-02-02 14:31 | OT.IP.TRT ---
Current Diagnoses Type 2 diabetes mellitus without complications (02/01/19) Other spondylosis with radiculopathy, lumbar region (02/01/19) Spinal stenosis, lumbar region with neurogenic claudication (02/01/19) Postlaminectomy syndrome, not elsewhere classified (02/01/19) Benign prostatic hyperplasia without lower urinary tract symptoms (02/01/19) Arthrodesis status (02/01/19) Other specified postprocedural states (02/01/19) Surgery Performed Operation Date: 02/01/19 07:45 Actual Procedures p L3-4,L4-5 TLIF w/Posterior Instru. - Chiki Avila MD Occupational Therapy Treatment Note M3 OT- IP Subjective and Pain Start: 02/02/19 14:28 Freq: Status: Active Protocol: Document 02/02/19 14:28 PJShant (Rec: 02/02/19 14:31 PJShant [id number]) OT- Subjective Occupational Therapy Visit Type Type Administrative Note Notes OT attempted x2. Pt unable to participate in OT evaluation today due to 9-10/10 pain in R lower back and burning pain in R anterior thigh. RN aware and working on pain control with pt. Will attempt again in AM.
[2019-02-02] MEDS: MAG HYDROX/ALUM/SIMETH 30 ML UDC PO ×2 (15:54→20:15)
--- NOTE | 2019-02-02 15:58 | PT.IPTN ---
Current Diagnoses Type 2 diabetes mellitus without complications (02/01/19) Other spondylosis with radiculopathy, lumbar region (02/01/19) Spinal stenosis, lumbar region with neurogenic claudication (02/01/19) Postlaminectomy syndrome, not elsewhere classified (02/01/19) Benign prostatic hyperplasia without lower urinary tract symptoms (02/01/19) Arthrodesis status (02/01/19) Other specified postprocedural states (02/01/19) Surgery Performed Operation Date: 02/01/19 07:45 Actual Procedures p L3-4,L4-5 TLIF w/Posterior Instru. - Chiki Avila MD Physical Therapy Treatment Note M2 PT-IP Current Condition Start: 02/02/19 12:05 Freq: NEEDED Status: Active Protocol: Document 02/02/19 10:52 AB (Rec: 02/02/19 12:21 AB [id number]) Physical Therapy Current Condition Current Condition Evaluation Date 02/02/19 Treatment Diagnosis s/p L3-4,L4-5 fusion/lami; difficulty in walking Onset Date 02/01/19 Precautions Lumbar Precautions Log Roll No Twisting Limit Bending Lifting Restriction of 10 lbs Gait Belt above Incisional Area M3 PT-IP Subjective Start: 02/02/19 12:05 Freq: NEEDED Status: Active Protocol: Document 02/02/19 15:54 SA (Rec: 02/02/19 15:58 SA [id number]) Subjective Physical Therapy Visit Type Type Patient Refusal Physical Therapy Visit Comments Patient Comments Pt reporting back pain as 10/ 10 and refusing PT this afternoon, NSG aware and steroid started this PM. Educated pt on importance of walking for circulation, healing and pain management. Therapy Pain Assessment Pain When Pain Assessed At Rest Pain Present Pain Present Pain Reported Location Right Thigh Intensity 10 Scale Used Numeric (1 - 10) Pain Behaviors Facial Grimacing Guarding Restlessness Pain Management Techniques Apply Cold Re-positioning Timing of Activity with Medications M4 PT-IP Mobility and Gait Start: 02/02/19 12:05 Freq: NEEDED Status: Active Protocol: Document 02/02/19 10:52 AB (Rec: 02/02/19 12:21 AB [id number]) PT-Bed Mobility Assessment Rolling Type of Rolling Log Rolling Level of Assist Maximal Assistance Supine to Sit Supine to Sit Maximum Assistance 1 Person Assistance PT-Transfer Assessment Sit to and From Stand Sit to and from Stand Moderate Assistance 1 Person Assistance Use of Upper Extremities Equipment Transfer Assistive Device Gait Belt Front Wheeled Walker Orthotic/Prosthetic Devices or Brace: No Transfers Transfer Destination Toilet Transfer Technique pt ambulated using FWW Transfer Ability Level of Assist Minimal Assistance 1 Person Assistance Use of Upper Extremities Gait Assessment Gait Gait Assistance Required: Minimum Assistance Distance (Feet) 15 Assistive Devices Assistive Device Gait Belt Front Wheeled Walker Orthotic/Prosthetic Devices or Brace: No Gait Deviations General Gait Pattern Antalgic Factors Limiting Gait Function Factors Limiting Gait Function Decreased Activity Tolerance Pain Poor Balance PT-Balance Assessment Sitting Balance and Reactions Static Sitting Balance Ability Good Dynamic Sitting Balance Ability Good Standing Balance and Reactions Static Standing Balance Ability Fair Dynamic Standing Balance Ability Fair Device Used FWW M5 PT-IP Objective Assessments Start: 02/02/19 12:05 Freq: NEEDED Status: Active Protocol: Document 02/02/19 10:52 AB (Rec: 02/02/19 12:21 AB [id number]) Orientation Orientation/Cognition Level of Alertness Alert Orientation Name Age Birthday Month Date Year Day of Week Place Situation Safety Awareness Decreased Safety Awareness Memory Description No Deficits Noted Gross Range of Motion Lower Extremity ROM Assessment Within Functional Limits Strength Lower Extremity Strength Assessment Within Functional Limits M6 PT-IP Treatment Start: 02/02/19 12:05 Freq: NEEDED Status: Active Protocol: Document 02/02/19 10:52 AB (Rec: 02/02/19 12:21 AB [id number]) Physical Therapy Treatment Education Education Provided Precautions Weight Bearing Status Post-Op Packet Safety M7 PT-IP Assessment and Plan Start: 02/02/19 12:05 Freq: NEEDED Status: Active Protocol: Document 02/02/19 10:52 AB (Rec: 02/02/19 12:21 AB [id number]) PT Summary Assessment and Plan Potential Rehabilitation Potential Fair Status of Condition at Evaluation Evolving Summary Impairments Pain ROM Strength Balance Coordination Sensation Bed Mobility Transfers Gait Activity Tolerance Assessment Summary pt c/o increase pain affecting mobility and unable to tolerate much activity. pt is frustrated due to pain. informed nurse regarding pt's concerns. pt requiring min to max A with mobility. pt stated that his sister supposedly will help him at home but she has her own medical issues and will not be able to physically assist pt. pt will require SNF rehab at this time. Goals Bed Mobility Goal Contact Guard Assistance Transfer Goal Standby Assistance Front Wheeled Walker Gait Goal Standby Assistance Front Wheel Walker Gait Distance 200 Other Goals up/down 3 steps B rails SBA Days to Meet Goals 5 Frequency of Treatment Frequency Of Treatment Twice a Day Treatment Plan Physical Therapy Treatment Plan Bed Mobility Training Transfer Training Gait Training Therapeutic Exercise Balance Retraining Post Op Education Discharge Planning Hot or Cold Pack Neuromuscular Re-ed Coordination Retraining Manual Therapy Other Recommendations and Next Treatment ambulation Focus Recommendations To Nursing Amount of Assist Needed 1 Person Assist Discharge Recommendations PT Discharge Recommendations SNF Rehab
[2019-02-02 16:00] VITALS: BP 130/73; PULSE 78; RESP 16; TEMP 37.1; O2SAT 94
--- NOTE | 2019-02-02 16:36 | PC.NURSE ---
Addendum entered by Carlota Andrews R.N. 02/02/19 21:05: 2015 - Pt out of bed to bathroom. Reports feeling a tearing sensation to back while getting out of bed. Pt reports feeling like the pain was right at the incision line. Drsg remains CDI. Pain resolved with brief rest. Pt states that's the second time today. Monitor. Overall pt reports improvement with pain. Rating pain at 6 of 10, 6, maybe down to a 6. Pt reports feeling overall fatigue, however agreeable to ambulate in the ross for the second time this shift. Assist to position for comfort. Call light in reach. Addendum entered by Carlota Andrews R.N. 02/02/19 18:59: 1900 - Pt up to bathroom. Reports pain 8 of 10. States that's the best it has been all day. Requesting RX for pain, I just don't want to get behind. RX given. Assist to position for comfort. SCD's on. Call light in reach. Original Note: [id number] - Pt request to get up to bathroom to void. C/o pain to back, /, reports improvement to pain to bilateral thighs, states that burning is slightly improved. Set up in chair. Pt declines to work with therapy. APAP and dilaudid given for pain, Maalox given for pt reported indigestion. VSS. Call light in reach.
[2019-02-02] MEDS: MAGNESIUM HYDROXIDE 30 ML UDC PO (22:34)
[2019-02-02] MEDS: MELATONIN 3 MG TABLET PO (22:36)
[2019-02-02] MEDS: SENNOSIDES 8.6 MG TABLET 17.2 MG PO (22:36)
[2019-02-02 23:19] VITALS: BP 152/67; PULSE 66; RESP 18; TEMP 36.4; O2SAT 92
[2019-02-03] MEDS: HYDROMORPHONE 2 MG TABLET 4 MG PO ×4 (02:47→22:18)
[2019-02-03 07:50] VITALS: BP 127/72; PULSE 58; RESP 16; TEMP 36.2; O2SAT 96
[2019-02-03] MEDS: Canagliflozin [Invokana] 100 MG 100 EACH PO (08:25)
[2019-02-03] MEDS: DOCUSATE 100 MG CAPSULE PO (08:25)
[2019-02-03] MEDS: hydrOXYzine pamoate 25 MG CAPSULE PO (08:27)
[2019-02-03] MEDS: GABAPENTIN 600 MG TABLET PO (08:27)
[2019-02-03] MEDS: ACETAMINOPHEN 325 MG TABLET 650 MG PO ×2 (08:27→15:51)
[2019-02-03] MEDS: MAGNESIUM HYDROXIDE 30 ML UDC PO (08:27)
--- NOTE | 2019-02-03 09:16 | PM.PNPO.1 ---
Subjective Date Patient Seen: 02/03/19 Time Patient Seen: 09:16 Interval history: POD #2 status post laminectomy with Dr. Avila. He experience significant pain in down his right leg yesterday. IV dexamethasone 10 mg once was provided and this gave him significant relief. He has been very slow to mobilize. He lives alone. He would like to go to for [facility] for continued care. He notes a chronic insomnia for many many years. He is having difficulty sleeping here. Exam Vital Signs (past 8 hours): - 02/03/19 07:50 Temperature 97.2 F L Pulse Rate 58 L Respiratory Rate 16 Blood Pressure 127/72 Pulse Oximetry 96 Oxygen Delivery Method Nasal Cannula Oxygen Flow Rate 0 Narrative Exam Narrative: Patient is sitting at bedside chair no acute distress. He is alert and oriented x3. Dressing on back at [facility]. Calves are soft, compressible, not her bilaterally. Pulses are symmetrical Objective Labs Result Diagrams: 02/02/19 04:50 Assessment & Plan Post-op (1) S/P lumbar fusion: (2) History of back surgery: Postoperative Procedures Operation Date: 02/01/19 07:45 Actual Procedures Side Surgeon p L3-4,L4-5 TLIF w/Posterior Instru. Chiki Avila MD continue mobilizing with physical therapy. No excessive bending, lifting, or twisting. Patient has been very slow to mobilize, will start on ASA 81 mg daily for DVT prophylaxis. Will increase Vistaril 25-50 mg as needed. Will continue 24 hours of steroids. Patient will discharged to [facility] likely tomorrow. Quality VTE Deep Vein Thrombosis/Pulmonary Embolism Present on Admission: No
--- NOTE | 2019-02-03 09:21 | P.PN_ITS ---
Subjective Date Patient Seen: 02/03/19 Time Patient Seen: 09:16 Interval history: POD #2 status post laminectomy with Dr. Avila. He experience significant pain in down his right leg yesterday. IV dexamethasone 10 mg once was provided and this gave him significant relief. He has been very slow to mobilize. He lives alone. He would like to go to for [facility] for continued care. He notes a chronic insomnia for many many years. He is having difficulty sleeping here. Exam Vital Signs (past 8 hours): - 02/03/19 07:50 Temperature 97.2 F L Pulse Rate 58 L Respiratory Rate 16 Blood Pressure 127/72 Pulse Oximetry 96 Oxygen Delivery Method Nasal Cannula Oxygen Flow Rate 0 Narrative Exam Narrative: Patient is sitting at bedside chair no acute distress. He is alert and oriented x3. Dressing on back at [facility]. Calves are soft, compressible, not her bilaterally. Pulses are symmetrical Objective Labs Result Diagrams: 02/02/19 04:50 Assessment & Plan Post-op (1) S/P lumbar fusion: (2) History of back surgery: Postoperative Procedures Operation Date: 02/01/19 07:45 Actual Procedures Side Surgeon p L3-4,L4-5 TLIF w/Posterior Instru. Chiki Avila MD continue mobilizing with physical therapy. No excessive bending, lifting, or twisting. Patient has been very slow to mobilize, will start on ASA 81 mg daily for DVT prophylaxis. Will increase Vistaril 25-50 mg as needed. Will continue 24 hours of steroids. Patient will discharged to [facility] likely tomorrow. Quality VTE Deep Vein Thrombosis/Pulmonary Embolism Present on Admission: No
--- NOTE | 2019-02-03 09:29 | PT.IPTN ---
Current Diagnoses Type 2 diabetes mellitus without complications (02/01/19) Other spondylosis with radiculopathy, lumbar region (02/01/19) Spinal stenosis, lumbar region with neurogenic claudication (02/01/19) Postlaminectomy syndrome, not elsewhere classified (02/01/19) Benign prostatic hyperplasia without lower urinary tract symptoms (02/01/19) Arthrodesis status (02/01/19) Other specified postprocedural states (02/01/19) Surgery Performed Operation Date: 02/01/19 07:45 Actual Procedures p L3-4,L4-5 TLIF w/Posterior Instru. - Chiki Avila MD Physical Therapy Treatment Note M2 PT-IP Current Condition Start: 02/02/19 12:05 Freq: NEEDED Status: Active Protocol: Document 02/02/19 10:52 AB (Rec: 02/02/19 12:21 AB [id number]) Physical Therapy Current Condition Current Condition Evaluation Date 02/02/19 Treatment Diagnosis s/p L3-4,L4-5 fusion/lami; difficulty in walking Onset Date 02/01/19 Precautions Lumbar Precautions Log Roll No Twisting Limit Bending Lifting Restriction of 10 lbs Gait Belt above Incisional Area M3 PT-IP Subjective Start: 02/02/19 12:05 Freq: NEEDED Status: Active Protocol: Document 02/03/19 09:21 SA (Rec: 02/03/19 09:29 SA [id number]) Subjective Physical Therapy Visit Type Type Treatment Note Visit Start Time 08:54 Visit Stop Time 09:19 Total Visit Minutes 23 Number of CARDIAC CATHETERIZATION TECHNOLOGIST Visits 1 Physical Therapy Visit Comments Patient Comments Pt reports 5/10 back pain at rest and is agreeable to get up and walk. Therapy Pain Assessment Pain When Pain Assessed During Mobility Pain Present Pain Present Pain Reported Location Right Thigh Intensity 6 Scale Used Numeric (1 - 10) Pain Behaviors Facial Grimacing Guarding Restlessness Pain Management Techniques Apply Cold Re-positioning Timing of Activity with Medications M4 PT-IP Mobility and Gait Start: 02/02/19 12:05 Freq: NEEDED Status: Active Protocol: Document 02/03/19 09:21 SA (Rec: 02/03/19 09:29 SA [id number]) PT-Bed Mobility Assessment Rolling Type of Rolling Log Rolling Level of Assist Minimal Assistance Sit to Supine Sit to Supine Minimal Assistance Bedrails Scooting Scooting to Edge of Bed Standby Assistance PT-Transfer Assessment Sit to and From Stand Sit to and from Stand Contact Guard Assistance 1 Person Assistance Use of Upper Extremities Equipment Transfer Assistive Device Gait Belt Front Wheeled Walker Orthotic/Prosthetic Devices or Brace: No Transfers Transfer Destination Bed Transfer Technique Stand Step Pivot Transfer Ability Level of Assist Contact Guard Assistance 1 Person Assistance Use of Upper Extremities Comments Mobility Comments Pt Min A with sit to supine using log roll technique and cues for spinal precautions. CGA for sit to stands and transfers with FWW. Gait Assessment Gait Gait Assistance Required: Contact Guard Assist 1 Person Assist Distance (Feet) 125 Able to Maintain Weight Bearing Status Yes During Gait Assistive Devices Assistive Device Gait Belt Front Wheeled Walker Orthotic/Prosthetic Devices or Brace: No Gait Deviations General Gait Pattern Antalgic Decreased Stride Length Factors Limiting Gait Function Factors Limiting Gait Function Decreased Activity Tolerance Pain Poor Balance Comments Gait Comments Pt with slow and gaurded gait with FWW and CGA, cues for decreasing WBing through UEs, pt states this makes his legs feel weaker. PT-Balance Assessment Comments Other Balance Tests/Deviations/Treatment Standing postural correction : and lateral weight shifting prior to ambulation. M5 PT-IP Objective Assessments Start: 02/02/19 12:05 Freq: NEEDED Status: Active Protocol: Document 02/02/19 10:52 AB (Rec: 02/02/19 12:21 AB [id number]) Orientation Orientation/Cognition Level of Alertness Alert Orientation Name Age Birthday Month Date Year Day of Week Place Situation Safety Awareness Decreased Safety Awareness Memory Description No Deficits Noted Gross Range of Motion Lower Extremity ROM Assessment Within Functional Limits Strength Lower Extremity Strength Assessment Within Functional Limits M6 PT-IP Treatment Start: 02/02/19 12:05 Freq: NEEDED Status: Active Protocol: Document 02/03/19 09:21 SA (Rec: 02/03/19 09:29 SA [id number]) Physical Therapy Treatment Exercises Exercises Ankle Pumps Gluteal Sets Quad Sets Education Education Provided Precautions Weight Bearing Status Post-Op Packet Safety M7 PT-IP Assessment and Plan Start: 02/02/19 12:05 Freq: NEEDED Status: Active Protocol: Document 02/03/19 09:21 SA (Rec: 02/03/19 09:29 SA [id number]) PT Summary Assessment and Plan Potential Rehabilitation Potential Fair Status of Condition at Evaluation Evolving Summary Impairments Pain ROM Strength Balance Coordination Sensation Bed Mobility Transfers Gait Activity Tolerance Assessment Summary Pt with gradual decrease in back/leg pain and able to ambulate more this AM with improving tolerance and distance. Review of spinal precautions and education for log roll technique. Frequency of Treatment Frequency Of Treatment Twice a Day Treatment Plan Physical Therapy Treatment Plan Bed Mobility Training Transfer Training Gait Training Therapeutic Exercise Balance Retraining Post Op Education Discharge Planning Hot or Cold Pack Neuromuscular Re-ed Coordination Retraining Manual Therapy Recommendations To Nursing Amount of Assist Needed 1 Person Assist Discharge Recommendations PT Discharge Recommendations Home with Assistance SNF Rehab
[2019-02-03] MEDS: ASPIRIN EC 81 MG TABLET PO (09:38)
--- NOTE | 2019-02-03 11:07 | PC.NURSE ---
Addendum entered by Tae Ojeda R.N. 02/03/19 14:23: Pt able to have liquid stool, unobserved by staff. Pt accepting of miralax. Educated to use of dexamethasone PO. Pt is accepting of med at this time. Called to pharmacy and had future doses retimed. Refused showering stating had sponge bath earlier. Ambulated 3 laps around nurses station with SBA and FWW. Rates incisional pain 5/10 with rest and 10/10 with activity. States he is tolerating this pain level and declines use of PRN med at this time. Addendum entered by Tae Ojeda R.N. 02/03/19 13:04: Called to [facility] and reported pt c/o constipation despite current med regimen and declines use of supp and enema r/t painful hemorrhoid. Reported pt c/o inability to sleep. Reported pt refusal of dexamethasone. Orders received for miralax 17gm PO BID, and OK to d/c dexamethasone if pt refuses after education. Original Note: 0915- Pt laying on right side in bed after physical therapy. He states he feels comfortable enough to sleep and reports that tylenol, gabapentin, and vistaril were effective in decreasing pain although he declines to rate his pain on a 0-10 pain scale. He expresses frustration r/t inability to sleep. I don't understand why you can't just give me something to knock me out. Reviewed available PRNs and educated to provider's order for PO dexamethasone. Pt refusing dexamethasone stating If it could potentially effect my ability to sleep, I don't want it. Pt is requesting not to be disturbed at this time. Relates that he would like some time alone to attempt to rest. Call light and belongings in easy reach. Positioned for comfort. Will monitor. 1030- Pt placed call light on. Checked on pt. He states he needs to have BM. 1PA OOB and SBA with FWW to BR. Pt refusing to use raised commode over toilet. Reinforced instruction re activity limitations no bending at the waist. Instructed pt to bend at knees and lower himself to commode. Pt needs reinforcement on activity limitations based on return demonstration. He verbalizes understanding.
[2019-02-03 11:50] VITALS: BP 120/51; PULSE 93; RESP 16; TEMP 36.3; O2SAT 93
[2019-02-03] MEDS: DEXAMETHASONE 4 MG TABLET PO ×2 (14:03→19:56)
[2019-02-03] MEDS: POLYETHYLENE GLYCOL 3350 17 GM POWD.PACK PO (14:03)
--- NOTE | 2019-02-03 15:05 | OT.IP.EVAL ---
Current Diagnoses Type 2 diabetes mellitus without complications (02/01/19) Other spondylosis with radiculopathy, lumbar region (02/01/19) Spinal stenosis, lumbar region with neurogenic claudication (02/01/19) Postlaminectomy syndrome, not elsewhere classified (02/01/19) Benign prostatic hyperplasia without lower urinary tract symptoms (02/01/19) Arthrodesis status (02/01/19) Other specified postprocedural states (02/01/19) Surgery Performed Operation Date: 02/01/19 07:45 Actual Procedures p L3-4,L4-5 TLIF w/Posterior Instru. - Chiki Avila MD Past Medical History (Last Updated 01/24/19 @ 07:47 by Jazzy Messer RN) Prepatellar bursitis of right knee (Chronic) Left sided sciatica (Chronic) Essential hypertension (Chronic) Osteoarthritis of lower back (Chronic 09/19/14) Tear of rotator cuff (Chronic 09/19/14) Benign prostatic hyperplasia (Chronic 01/02/15) Cramps of lower extremity (Chronic 01/02/15) Controlled type 2 diabetes mellitus without complication (Chronic 04/30/16) COPD (chronic obstructive pulmonary disease) (Acute) Peripheral neuropathy (Acute) Pneumonia (Acute) Spinal stenosis (Acute) Back pain (Acute) 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) Anxiety (Chronic) BPH (benign prostatic hyperplasia) (Chronic) Degenerative arthritis of lumbar spine (Chronic) Degenerative disc disease (Chronic) GERD (gastroesophageal reflux disease) (Chronic) Inflamed internal hemorrhoid (Chronic 02/2018) Lumbar disc herniation with radiculopathy (Chronic) Surgical History (Last Updated 01/24/19 @ 08:11 by Jazzy Messer RN) Hx of hand surgery (Acute ~2004) Hx of microdiscectomy (Acute 07/01/18) Status post epidural steroid injection (Acute) H/O colonoscopy (Resolved 07/08/15) H/O sinus surgery (Resolved 2003) History of elbow surgery (Resolved) History of sebaceous cyst (Resolved 2000) Hx of inguinal hernia surgery (Resolved 1996) Status post laminectomy (Resolved) Occupational Therapy Inpatient Evaluation/Re-Eval M1 PT/OT-IP Prior Functional Status Start: 02/02/19 12:05 Freq: NEEDED Status: Active Protocol: Document 02/03/19 14:49 CCC (Rec: 02/03/19 15:05 [facility] [id number]) Medical Review Prior Functional Status Medical History Reviewed Yes Diet/Fluid Consistency Regular Thin Liquids Communication able to make needs known Mobility and Gait pt stated that he is independent with all mobilities and ambulation without AD Activities of Daily Living and IADL's Completely independent for all ADl's and IADl needs. 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 Social History Household Members none Living Arrangements Mobile home Number of Floors (Floors) One Floor Number of Stairs To Enter/Railing? 3 steps to enter with bilateral rails Home Environment Standard Height Toilet Tub/Shower Home Equipment Front Wheel Walker Shower Seat with Backrest Hand Held Shower Additional Social History Comment pt sleeps on a rocker recliner prior to surgery but plans to use his bed when he gets home M2 OT-IP Current Condition Start: 02/02/19 14:28 Freq: Status: Active Protocol: Document 02/03/19 14:49 [facility] (Rec: 02/03/19 15:05 [facility] [id number]) Occupational Therapy Current Condition Current Condition Evaluation Date 02/03/19 Treatment Diagnosis Spinal Stenosis Diagnosis Onset Date 02/01/19 Post Operative Precautions Lumbar Precautions Log Roll No Twisting Limit Bending Lifting Restriction of 10 lbs Gait Belt above Incisional Area Weight Bearing Status Weight Bearing Status Weight Bear as Tolerated M3 OT- IP Subjective and Pain Start: 02/02/19 14:28 Freq: Status: Active Protocol: Document 02/03/19 14:49 [facility] (Rec: 02/03/19 15:05 [facility] [id number]) OT- Subjective Occupational Therapy Visit Type Type Initial Evaluation Visit Start Time 14:25 Visit Stop Time 14:45 Total Visit Minutes 20 Occupational Therapy Visit Comments Patient Comments Pt agreeable to do OT eval. OT Pain Assessment Pain When Pain Assessed At Rest Pain Present Pain Present Pain Reported Location Right Thigh Intensity 6 M4 OT- IP ADL's Start: 02/02/19 14:28 Freq: Status: Active Protocol: Document 02/03/19 14:49 [facility] (Rec: 02/03/19 15:05 [facility] [id number]) OT ADL-Dressing General Eval Lower Body Dressing Ability Maximum Assistance Comments OT Dressing Comments Pt needing assist to jak/doff sock over left foot and assist to jak right sock. OT ADL-Toileting General Evaluation Toileting Ability Moderate Assistance Areas Needing Assistance Perform Perineal Hygiene Comments OT Toileting Comments Per pt , pt not able to reach for hygiene needs at this time as prior would wipe from the front. pt may benefit from standing to wipe or use of toilet aid. OT ADL-Bathing Comments OT Bathing Comments Pt states in too much pain and not wanting to shower at this time. 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 M6 OT- IP Functional Cognition Start: 02/02/19 14:28 Freq: Status: Active Protocol: Document 02/03/19 14:49 [facility] (Rec: 02/03/19 15:05 [facility] [id number]) Cognitive Factors Limiting Selfcare Function Cognitive Ability Level of Alertness Alert Patient Orientation Name Age Birthday Month Date Year Day of Week Place Situation Attention Span Ability Capable of Focused Attention Capable of Sustained Attention Ability to Follow Commands Able to Follow Multi-Step Commands Memory Description No Deficits Noted Safety Awareness Decreased Ability to Apply Precautions Underestimates Need for Assistance Cognitive Comments Cognitive Assessment Comments Pt a bit impulsive and needing vc for safety to come up from sit to stand , stand to sit, pt needing reminders to hip hinge as at times tends to round his back. Pt heavily relies on his arms and tends to push up on FWW to stand. OT- Vision and Hearing OT- Hearing Assessment OT- Hearing Assessment WFL M7 OT- IP Mobility and Balance Start: 02/02/19 14:28 Freq: Status: Active Protocol: Document 02/03/19 14:49 [facility] (Rec: 02/03/19 15:05 [facility] [id number]) OT-Transfer Assessment Sit to and From Stand Sit to and from Stand Standby Assistance Contact Guard Assistance Transfers Transfer Ability Contact Guard Assistance 1 Person Assistance Technique Transfer Destination Bedside Commode Chair Transfer Technique Stand Step Pivot Devices Transfer Assistive Devices Gait Belt Front Wheeled Walker Comments Mobility Comments Pt unsteady on his feet when coming up to stand and heavily relies on his arms to assist. CGA while sitting to surface as a bit shaky. OT- Balance Assessment Sitting Balance and Reactions Static Sitting Balance Ability Normal Dynamic Sitting Balance Ability Good Standing Balance and Reactions Static Standing Balance Ability Good M8 OT- IP Objective Assessments Start: 02/02/19 14:28 Freq: Status: Active Protocol: Document 02/03/19 14:49 [facility] (Rec: 02/03/19 15:05 [facility] [id number]) OT Gross Range of Motion Upper Extremity Range of Motion Assessment Within Functional Limits OT Strength Upper Extremity Strength Assessment Within Functional Limits M9 OT- IP Assessment and Plan Start: 02/02/19 14:28 Freq: Status: Active Protocol: Document 02/03/19 14:49 [facility] (Rec: 02/03/19 15:05 [facility] [id number]) OT Summary Assessment and Plan Potential Rehabilitation Potential Good Analytic Complexity at Evaluation Low Summary OT Impairments Pain Balance Functional Mobility Dressing Toileting Bathing Toilet Transfers Shower Transfers Progress Towards Goals Slow Progress due to Pain Assessment Summary Pt low complexity and now needing assist for ADl's , and decreased activity tolerance and functional mobility form lower surfaces. Pt would benefit from skilled rehab to continue to practice to incorporate back precautions for needs, safety on transitions, work towards independence with ADl's. Goals Grooming Goal Independent Dressing Goal Independent Long Handled Shoe [place] Third Officer Sock Aid Toileting Goal Independent Bathing Goal Minimal Assistance Toilet Transfer Goal Independent Shower Transfer Goal Standby Assistance Days to Meet Goals 5 Frequency of Treatment Frequency Of Treatment Once a Day Treatment Plan OT Treatment Plan ADL Training Functional Mobility Patient/Family Education Discharge Planning Other Treatment Recommendations and Next Shower Treatment Focus Discharge Recommendations OT Discharge Recommendations SNF Rehab Home Equipment Needs defer to SNF
--- NOTE | 2019-02-03 15:30 | CM.DPNOTE ---
Confirmed pt's acceptance again, this time w/ Kinga at [facility]. Pt will likely be ready to DC to [facility] Wednesday. Following closely. SANTOS
--- NOTE | 2019-02-03 15:49 | PT.IPTN ---
Current Diagnoses Type 2 diabetes mellitus without complications (02/01/19) Other spondylosis with radiculopathy, lumbar region (02/01/19) Spinal stenosis, lumbar region with neurogenic claudication (02/01/19) Postlaminectomy syndrome, not elsewhere classified (02/01/19) Benign prostatic hyperplasia without lower urinary tract symptoms (02/01/19) Arthrodesis status (02/01/19) Other specified postprocedural states (02/01/19) Surgery Performed Operation Date: 02/01/19 07:45 Actual Procedures p L3-4,L4-5 TLIF w/Posterior Instru. - Chiki Avila MD Physical Therapy Treatment Note M2 PT-IP Current Condition Start: 02/02/19 12:05 Freq: NEEDED Status: Active Protocol: Document 02/02/19 10:52 AB (Rec: 02/02/19 12:21 AB [id number]) Physical Therapy Current Condition Current Condition Evaluation Date 02/02/19 Treatment Diagnosis s/p L3-4,L4-5 fusion/lami; difficulty in walking Onset Date 02/01/19 Precautions Lumbar Precautions Log Roll No Twisting Limit Bending Lifting Restriction of 10 lbs Gait Belt above Incisional Area M3 PT-IP Subjective Start: 02/02/19 12:05 Freq: NEEDED Status: Active Protocol: Document 02/03/19 15:43 SA (Rec: 02/03/19 15:49 SA [id number]) Subjective Physical Therapy Visit Type Type Treatment Note Visit Start Time 15:00 Visit Stop Time 15:30 Total Visit Minutes 30 Number of CASE 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 Therapy Pain Assessment Pain When Pain Assessed During Mobility Pain Present Pain Present Pain Reported Location Right Thigh Intensity 5 Scale Used Numeric (1 - 10) Pain Behaviors Facial Grimacing Guarding Restlessness Pain Management Techniques Apply Cold Re-positioning Timing of Activity with Medications M4 PT-IP Mobility and Gait Start: 02/02/19 12:05 Freq: NEEDED Status: Active Protocol: Document 02/03/19 15:43 SA (Rec: 02/03/19 15:49 SA [id number]) PT-Transfer Assessment Sit to and From Stand Sit to and from Stand Standby Assistance Contact Guard Assistance 1 Person Assistance Equipment Transfer Assistive Device Gait Belt Front Wheeled Walker Orthotic/Prosthetic Devices or Brace: No Transfers Transfer Destination Chair Toilet Transfer Technique Stand Step Pivot Transfer Ability Level of Assist Standby Assistance Contact Guard Assistance 1 Person Assistance Comments Mobility Comments Pt SBA-CGA with transfers with FWW.Completed txs on/off toilet and chair with improving sit to stand ability and decreased pain. Gait Assessment Gait Gait Assistance Required: Standby Assistance Contact Guard Assist 1 Person Assist Distance (Feet) 200 Able to Maintain Weight Bearing Status Yes During Gait Assistive Devices Assistive Device Gait Belt Front Wheeled Walker Orthotic/Prosthetic Devices or Brace: No Gait Deviations General Gait Pattern Antalgic Decreased Stride Length Factors Limiting Gait Function Factors Limiting Gait Function Decreased Activity Tolerance Pain Poor Balance Comments Gait Comments PT SBA-CGA with gait x 200 feet, able to decrease WBing through UEs for short bouts but continues to WB heavily on UEs. PT-Balance Assessment Comments Other Balance Tests/Deviations/Treatment Standing postural correction : and lateral weight shifting prior to ambulation. M5 PT-IP Objective Assessments Start: 02/02/19 12:05 Freq: NEEDED Status: Active Protocol: Document 02/02/19 10:52 AB (Rec: 02/02/19 12:21 AB [id number]) Orientation Orientation/Cognition Level of Alertness Alert Orientation Name Age Birthday Month Date Year Day of Week Place Situation Safety Awareness Decreased Safety Awareness Memory Description No Deficits Noted Gross Range of Motion Lower Extremity ROM Assessment Within Functional Limits Strength Lower Extremity Strength Assessment Within Functional Limits M6 PT-IP Treatment Start: 02/02/19 12:05 Freq: NEEDED Status: Active Protocol: Document 02/03/19 15:43 SA (Rec: 02/03/19 15:49 [id number]) Physical Therapy Treatment Exercises Exercises Ankle Pumps Gluteal Sets Quad Sets Education Education Provided Precautions Weight Bearing Status Post-Op Packet Safety M7 PT-IP Assessment and Plan Start: 02/02/19 12:05 Freq: NEEDED Status: Active Protocol: Document 02/03/19 15:43 SA (Rec: 02/03/19 15:49 [id number]) PT Summary Assessment and Plan Potential Rehabilitation Potential Fair Status of Condition at Evaluation Evolving Summary Impairments Pain ROM Strength Balance Coordination Sensation Bed Mobility Transfers Gait Activity Tolerance Assessment Summary Decreasing back/leg pain and improving mobility, anticipate d/c to SNF for continued mobility and safety training. Pt lives alone. Frequency of Treatment Frequency Of Treatment Twice a Day Treatment Plan Physical Therapy Treatment Plan Bed Mobility Training Transfer Training Gait Training Therapeutic Exercise Balance Retraining Post Op Education Discharge Planning Hot or Cold Pack Neuromuscular Re-ed Coordination Retraining Manual Therapy Recommendations To Nursing Amount of Assist Needed 1 Person Assist Discharge Recommendations PT Discharge Recommendations Home with Assistance SNF Rehab
[2019-02-03] MEDS: hydrOXYzine pamoate 25 MG CAPSULE 50 MG PO ×2 (15:51→22:18)
[2019-02-03 16:00] VITALS: BP 160/61; PULSE 71; RESP 18; TEMP 36.6; O2SAT 98
[2019-02-03] MEDS: MAG HYDROX/ALUM/SIMETH 30 ML UDC PO (19:55)
[2019-02-03 20:00] VITALS: BP 101/42; PULSE 64; RESP 18; TEMP 36.6; O2SAT 94
[2019-02-03] MEDS: MELATONIN 3 MG TABLET PO (22:18)
[2019-02-03] MEDS: INSULIN ASPART 100 UNIT/ML INSULN PEN SUBCUT (22:19)
--- NOTE | 2019-02-03 22:32 | PC.NURSE ---
natali note pt up in chair, ambulating to bathroom with walker, SBA. Pt c/o pain to back and asks for anything I can get for pain. Discussed pain management. Prior to now, pt had not had pain meds for 10 hours. Dilaudid and vistaril given, plus Tylenol. pt up to bathroom several times, c/o constipation. Pt had one stool with some hard gail plus loose stool. Later, pt had more loose stools. Discussed bedtime bowel meds, probability of more gail still in colon, bid meds. Pt prefers to not take bowel meds tonight.
[2019-02-04 00:15] VITALS: BP 135/58; PULSE 57; RESP 20; TEMP 36.4; O2SAT 95
[2019-02-04] MEDS: HYDROMORPHONE 2 MG TABLET 4 MG PO ×3 (00:58→09:53)
[2019-02-04] MEDS: ACETAMINOPHEN 325 MG TABLET 650 MG PO ×2 (01:00→08:56)
[2019-02-04] MEDS: GABAPENTIN 600 MG TABLET PO ×2 (01:01→08:55)
[2019-02-04] MEDS: DEXAMETHASONE 4 MG TABLET PO ×2 (01:44→08:52)
[2019-02-04] MEDS: hydrOXYzine pamoate 25 MG CAPSULE 50 MG PO (06:14)
--- NOTE | 2019-02-04 06:36 | PC.NURSE ---
NOC Shift: POD #3 low lumbar LAMI. Pt AAOx3, has not slept much through shift. Up and down OOB to recliner to bathroom to bed. Medicated w/po Diluadid, for incisional pain. Ambulates w/FWW w/o difficulty. Dsg CDI. Neurologically intact, has neuropathy in both lower legs, feet not new. Should transfer to [facility] today per care plan, however pt stating that he thinks he needs to stay one more day in the hospital w/o reason. Told to discuss with PA on rounds today.
[2019-02-04] MEDS: Canagliflozin [Invokana] 100 MG 100 EACH PO (08:52)
[2019-02-04] MEDS: DOCUSATE 100 MG CAPSULE PO (08:52)
[2019-02-04] MEDS: ASPIRIN EC 81 MG TABLET PO (08:52)
[2019-02-04] MEDS: INSULIN ASPART 100 UNIT/ML INSULN PEN SUBCUT (08:53)
[2019-02-04] MEDS: POLYETHYLENE GLYCOL 3350 17 GM POWD.PACK PO (08:53)
[2019-02-04] MEDS: SENNOSIDES 8.6 MG TABLET 17.2 MG PO (08:57)
[2019-02-04 09:03] VITALS: BP 138/60; PULSE 62; RESP 16; TEMP 37.1; O2SAT 97
--- NOTE | 2019-02-04 11:07 | P.DS_ITS ---
History of Present Illness Date Patient Seen: 02/04/19 Time Patient Seen: 11:07 Chief complaint: Lumbar Laminectomy Narrative: Patient has been having chronic back pain and worsening lumbar r adiculopathy. The patient had prior laminectomy and microdiskectomy on 2 separate surgeries with temporary relief of his symptoms over the last several years. Patient has progressive worsening of his back pain as long as radiculopathy with repeat MRI showing a recurrent disc herniation at both levels. Patient failed multiple conservative management with worsening pain weakness and numbness in her lower extremity. Patient has been having difficulty performing activity of daily living. After discussing risks benefits of treatment options, patient elected proceed with surgery. Discharge Providers Date of admission: 02/01/19 06:49 Discharge Date: 02/04/19 Primary care physician: Cas Marin MD Consults: 02/01/19 16:23 Consult to Occupational Therapy Evaluate & Treat Comment: Physician Instructions: Evaluate and treat Consult to Physical Therapy Evaluate & Treat Comment: Physician Instructions: Evaluate and Treat Discharge provider: Shyanne Baldwin PA-C Summary Discharge Diagnosis: s/p revision laminectomies Spinal stenosis Hypertension GERD Her diabetes type 2 COPD BPH Hospital Course: Admitted for revision laminectomies with Dr. Avila. Patient has been slow to mobilize and requiring intermediate facility for continued care. He has been eating and voiding without difficulty or assistance. On postop day 3 patient was ready to discharge to the [facility]. He had been mobilizing with phys ical therapy. Pain has been adequately controlled with Dilaudid. Diabetes has been controlled. Exam Vital Signs (past 8 hours): - 02/04/19 09:03 Temperature 98.7 F Pulse Rate 62 Respiratory Rate 16 Blood Pressure 138/60 Pulse Oximetry 97 Oxygen Delivery Method Room Air Oxygen Flow Rate 0 Narrative Exam Narrative: Patient is sitting at bedside chair in no acute distress. He is alert and oriented x3. Dressing on back CDI. Calves are soft, compressible, nontender bilaterally. Sensation intact to light touch except for bilateral feet. Patient's pain was well controlled this morning. Objective Labs Result Diagrams: 02/02/19 04:50 Discharge Plan Discharge Plan Patient Disposition: SNF Transfer to: [facility] Under care of provider: Facility Transportation: Facility vehicle Consult as needed: Dental, Hearing, Mental health, Podiatry and Vision I certify the postop hospital intermediate care is medically necessary on a continuing basis for any conditions for which he/ she received care during this hospitalization.: Yes The receiving facility has agreed to accept transfer and provide medical treatment.: Yes Discharge Med Rec/Prescriptions Prescriptions: New acetaminophen 325 mg Tablet 650 mg PO Q6HR PRN (Reason: Pain, Mild (1-3)) Qty: 60 RF: 0 aspirin 81 mg Tablet,Delayed Release (Dr/Ec) 81 mg PO DAILY Qty: 30 RF: 0 hydromorphone 2 mg Tablet 2 mg PO Q4HR Qty: 60 RF: 0 docusate sodium [DOK] 100 mg Capsule 100 mg PO BID Qty: 60 RF: 0 hydroxyzine pamoate 25 mg Capsule 25 mg PO Q6HR Qty: 60 RF: 0 sennosides [senna] 8.6 mg Tablet 17.2 mg PO BEDTIME Qty: 60 RF: 0 polyethylene glycol 3350 17 gram Powder In Packet 17 gm PO BID Qty: 60 RF: 0 melatonin 3 mg Tablet 3 mg PO BEDTIME Qty: 60 RF: 0 Continued Invokana 100 mg tablet 100 mg PO DAILY Qty: 90 RF: 3 albuterol sulfate 90 mcg/actuation HFA aerosol inhaler 1 puff INHALATION Q4-6H PRN (Reason: shortness of breath or wheezing) Qty: 6.7 RF: 0 ketoconazole 2 % cream 1 applic Topical DIRECTED RF: 0 gabapentin 600 mg tablet 600 mg PO BID-QID MDD 4 RF: 0 hydrocortisone 2.5 % cream 1 applictn TOP BID PRN (Reason: Hemorrhoids) RF: 0 Glucose: Test Strips 1 str miscellaneous QDAY RF: 0 Discontinued hydromorphone 1 tab PO QID RF: 0 Follow up/Referrals: Cas Marin MD [Primary Care Provider] - Chiki Avila MD [Physician] - Provider Discharge Instructions Diet: Diet as Tolerated Liquid consistency: Normal/Thin Food texture: Regular Activity: No excessive bending, lifting, or twisting Cold/Heat Therapy: As needed Skin/Wound/Dressing Care Report to your healthcare provider any signs of infection, such as:: chills, fever and increased pain Dressing: Cover site dressing prior to discharge [facility] Reason for rehabilitation: Post-operative therapy Rehab type: Physical therapy and Occupational therapy Visit Report/Discharge Packet Instructions: DI for Transforaminal Lumbar Interbody Fusion Discharge Data Primary Care Provider: Cas Marin Attending Provider: Chiki Avlia Admit Date/Time: 02/01/19 06:49 Quality VTE Deep Vein Thrombosis/Pulmonary Embolism Present on Admission: No
--- NOTE | 2019-02-04 14:31 | CM.DPNOTE ---
DC Note DC order in place as expected this morning. Updated Kinga at [facility] and reviewed DCP w/pt, all aware and agreeable to DCP today, IMM reviewed and verbal agreement obtained as pt was getting ready for transport p/u at 1130. NEHEMIAH Leger updated on p/u time. Faxed completed DC Summary, DC order, signed med list and completed PASRR to [facility]. JW
== END 2019-02-04 11:35 | DRG 455 ==
LOC: AC 14:29 → ICU 15:42
PROVIDERS: Admitting Provider Orthopaedic Surgery Orthopaedic Surgery of the Spine; PCP Family Medicine; Visit Provider Orthopaedic Surgery Orthopaedic Surgery of the Spine
PROC: 0SG10AJ Fusion of 2 or more Lumbar Vertebral Joints with Interbody Fusion Device, Posterior Approach, Anterior Column, Open Approach (ICD-10-PCS; principal; 2019-02-01 07:45)
DX: M51.16 Intervertebral disc disorders with radiculopathy, lumbar region (principal); M48.061 Spinal stenosis, lumbar region without neurogenic claudication; M47.26 Other spondylosis with radiculopathy, lumbar region; E11.42 Type 2 diabetes mellitus with diabetic polyneuropathy; E66.9 Obesity, unspecified; I10 Essential (primary) hypertension; N40.0 Benign prostatic hyperplasia without lower urinary tract symptoms; J44.9 Chronic obstructive pulmonary disease, unspecified; Z87.891 Personal history of nicotine dependence; M96.1 Postlaminectomy syndrome, not elsewhere classified; M79.604 Pain in right leg
CPT/HCPCS: 36415; 72100; 76000; 82962; 85014; 85018; 87797; 94760; 97116; 97162; 97165; 97530; C1776; C9290; J0131; J0330; J1100; J1170; J2250; J2405; J2704; J3010; J3410

== ENCOUNTER → 2019-04-21 07:29 | Outpatient (CLI) | payer MEDICARE, OTHER, SELFPAY ==
[2019-02-01 17:49] VITALS: BMI 31.0
[2019-04-21 08:15] LABS: Hemoglobin A1C% w Est Avg Glu 6.2 % (4.0-6.0)
== END ==
PROVIDERS: PCP Family Medicine; Visit Provider Family Medicine
DX: E11.9 Type 2 diabetes mellitus without complications (principal)
CPT/HCPCS: 36415; 83036

== ENCOUNTER → 2019-06-02 06:39 | Outpatient (CLI) | payer MEDICARE, OTHER, SELFPAY ==
[2019-02-01 17:49] VITALS: BMI 31.0
--- NOTE | 2019-06-02 | DI.CT.S_ITS ---
PROCEDURE: CT LUMBAR SPINE WO CON INDICATIONS: Spinal stenosis, lumbar region without neurogenic TECHNIQUE: Noncontrast 3 mm thick sections acquired from the T12 level to the sacrum. Sagittal and coronal reformats were constructed. For radiation dose reduction, the following was used: automated exposure control. COMPARISON: [facility], MR, MR LUMBAR SPINE WO CON, 10/14/2018, 9:32. [facility], CR, XR LUMBAR SPINE FLEXION EXTENSION, 06/14/2017, 9:18. [facility], MR, MR LUMBAR SPINE WO/W CON, 05/24/2018, 10:55. [facility], CR, XR LUMBAR SPINE 2 OR 3 VIEWS, 05/30/2019, 10:15. [facility], CT, CT LUMBAR SPINE WO CON, 05/24/2018, 8:39. FINDINGS: Image quality: There is streak artifact associated with the metallic hardware. Bones: No acute vertebral body compression fractures. No suspicious lytic or blastic bony lesions. Central spinal caliber is of normal overall caliber. No pars defects. There is minimal retrolisthesis seen at L4-L5. Lower thoracic spine degenerative changes are seen, with bridging anterior osteophytes. Postoperative changes are seen, with bilateral pedicle screws at the L3, L4, and L5 levels. The screws appear well placed. Vertical fixation rods are seen. Disc spacers are seen at L3-L4 and L4-L5. No findings of hardware failure or hardware loosening are seen. There has been removal of portions of the posterior elements. T12-L1: No significant abnormality is seen. L1-L2: Minimal to mild loss of disc height is seen. Moderate disc bulge is seen, which is eccentric to the left. There is moderate bilateral neural foraminal narrowing seen, left worse than right. Mild to moderate central canal narrowing is seen. Stable from the prior study. L2-L3: Mild loss of disc height is seen. Vacuum disc phenomenon is seen at this level. Moderate to prominent disc bulge is seen, which is eccentric to the left side. There is at least moderate bilateral neural foraminal narrowing seen. Moderate central canal narrowing is seen. When comparison is made with the prior examination, these findings are similar. L3-L4: Postoperative changes are seen at this level. Mild to moderate loss of disc height is seen. Vacuum disc phenomenon is seen at this level. There is mild right-sided and no significant left-sided neural foraminal narrowing. This level is improved compared to the prior examination. L4-L5: There are postoperative changes at this level. Moderate disc bulge is seen. There is moderate right-sided and no significant left-sided neural foraminal narrowing seen. The central canal is widely patent. This level is improved compared to the prior examination. L5-S1: The disc height is well-preserved. Mild to moderate disc bulge is seen, which is eccentric to the right side. There is moderate right-sided and moderate left-sided facet hypertrophy seen. There is moderate to severe right-sided and moderate left-sided neural foraminal narrowing seen. Moderate central canal narrowing is seen. When comparison is made with the prior examination, these findings are similar. Soft tissues: No retroperitoneal masses or hematomas. Visualized aorta is normal in caliber. Incidental note is made of a normal-appearing appendix. IMPRESSION: Postoperative changes inferiorly, with improvement in the degrees of degenerative narrowing at L3-L4 and L4-L5 compared to the preoperative MRI examination. Dictated by: Gavin Estrada M.D. on 06/02/2019 at 8:45 Approved by: Gavin Estrada M.D. on 06/02/2019 at 8:53
== END ==
PROVIDERS: PCP Family Medicine; Visit Provider Orthopaedic Surgery Orthopaedic Surgery of the Spine
DX: M48.061 Spinal stenosis, lumbar region without neurogenic claudication (principal); M48.07 Spinal stenosis, lumbosacral region; M51.26 Other intervertebral disc displacement, lumbar region; M51.27 Other intervertebral disc displacement, lumbosacral region
CPT/HCPCS: 72131

== ENCOUNTER 2019-10-25 19:20 | Emergency (ER) | payer MEDICARE, OTHER, SELFPAY ==
[2019-02-01 17:49] VITALS: BMI 31.0
[2019-10-25 19:25] VITALS: PULSE 71; RESP 18; TEMP 36.8; O2SAT 95; BMI 30.4
[2019-10-25 19:34] VITALS: BP 146/68; PULSE 71; RESP 18; TEMP 36.8; O2SAT 95
--- NOTE | 2019-10-25 19:50 | ED_ITS ---
HPI - Extremity Problem <Crystal Porter PA-C - Last Filed: 10/25/19 20:56> General Chief complaint: Extremity Problem,Nontraumatic Stated complaint: thinks right knee is infected Time Seen by Provider: 10/25/19 19:21 Source: patient Mode of arrival: Ambulatory Limitations: no limitations History of Present Illness HPI Narrative: This 68-year-old male comes to ED secondary to concern about infection on his right knee. 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 He noted some redness on the skin and wanted to get this addressed right away. He states he had a callus on the knee that started a few weeks ago and kind of sloughed off. He states that in that open area he had some blood drained this morning and just noticed the redness below it today. He states he has otherwise felt at baseline. He denies any pain in the joint or difficulty with range of motion. He denies any fever any other new complaints. Related Data Home Medications Medication Instructions Recorded Confirmed Glucose: Test Strips 1 str MISCELLANEOUS QDAY 02/01/19 09/04/19 Previous Rx's Medication Instructions Recorded acetaminophen 650 mg PO Q6HR PRN #60 tab 02/04/19 aspirin 81 mg PO DAILY #30 tab 02/04/19 melatonin 3 mg PO BEDTIME #60 tab 02/04/19 polyethylene glycol 3350 17 gm PO BID #60 ea 02/04/19 clobetasol 0.05 % scalp solution 1 applictn TOP BID 7 Days #25 ml 06/12/19 ketoconazole 2 % shampoo 1 applictn TOP 2XW #120 ml 06/12/19 azithromycin 250 mg tablet See Rx Instructions PO .COMPLEX #6 09/04/19 tab erythromycin 5 mg/gram (0.5 %) eye 1 applictn EYE-BOTH Q8H #3.5 gram 09/04/19 ointment hydrocodone 5 mg-acetaminophen 325 1 tab PO Q6H #30 tab 09/04/19 mg tablet gabapentin 600 mg tablet 600 mg PO .COMPLEX #450 tab MDD 5 10/09/19 canagliflozin 100 mg tablet 100 mg PO DAILY #90 tab 10/11/19 cephalexin 500 mg PO QID 10 Days #40 cap 10/25/19 Allergies Allergy/AdvReac Type Severity Reaction Status Date / Time latex [LATEX] Allergy Mild SKIN Verified 09/04/19 09:13 IRRITATION Sulfa (Sulfonamide Allergy Mild BLISTER Verified 09/04/19 09:13 Antibiotics) [SULFA (SULFONAMIDE ANTIBIOTICS)] amoxicillin [AMOXICILLIN] AdvReac Severe NAUSEA/VOMI Verified 09/04/19 09:13 TING clavulanic acid AdvReac Severe AUGMENTIN/V Verified 09/04/19 09:13 [CLAVULANIC ACID] OMITING Penicillins [PENICILLINS] AdvReac Severe NAUSEA/VOMI Verified 09/04/19 09:13 TING ciprofloxacin [CIPROFLOXACIN] AdvReac Intermediate MADE PT Verified 09/04/19 09:13 FEEL RUMMY/NAUSEA erythromycin base AdvReac Intermediate SKIN Verified 09/04/19 09:13 [ERYTHROMYCIN BASE] CRAWLING Review of Systems <Crystal Porter PA-C - Last Filed: 10/25/19 20:56> Review of Systems ROS Unobtainable: All systems reviewed & are unremarkable except as noted in HPI and below Patient History <Crystal Porter PA-C - Last Filed: 10/25/19 20:56> Medical History (Updated 10/25/19 @ 20:09 by Crystal Porter PA-C) 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) Anxiety (Chronic) Back pain (Acute) Benign prostatic hyperplasia (Chronic 01/02/15) BPH (benign prostatic hyperplasia) (Chronic) Controlled type 2 diabetes mellitus without complication (Chronic 04/30/16) COPD (chronic obstructive pulmonary disease) (Acute) Cramps of lower extremity (Chronic 01/02/15) Degenerative arthritis of lumbar spine (Chronic) Degenerative disc disease (Chronic) Essential hypertension (Chronic) GERD (gastroesophageal reflux disease) (Chronic) Inflamed internal hemorrhoid (Chronic 02/2018) Left sided sciatica (Chronic) Lumbar disc herniation with radiculopathy (Chronic) Osteoarthritis of lower back (Chronic 09/19/14) Peripheral neuropathy (Acute) Pneumonia (Acute) Prepatellar bursitis of right knee (Chronic) Spinal stenosis (Acute) Tear of rotator cuff (Chronic 09/19/14) Surgical History (Updated 02/02/19 @ 09:18 by Shyanne Baldwin PA-C) H/O colonoscopy (Resolved 07/08/15) H/O sinus surgery (Resolved 2003) History of elbow surgery (Resolved) History of sebaceous cyst (Resolved 2000) Hx of hand surgery (Acute ~2004) Hx of inguinal hernia surgery (Resolved 1996) Hx of microdiscectomy (Acute 07/01/18) Status post epidural steroid injection (Acute) Status post laminectomy (Resolved) Social History marital status: (11/01/18) household members: none Smoking Status: Former smoker alcohol intake: current Smoking Status: Former smoker alcohol intake frequency: 0-2 drinks per day Substance Use Type: does not use Exam <Crystal Porter PA-C - Last Filed: 10/25/19 20:56> Narrative Exam Narrative: GENERAL APPEARANCE: Patient sitting comfortably, in no distress. LUNGS: Clear to auscultation bilaterally. HEART: Rate and rhythm regular without murmur, normal S1 and S2, no S3 or S4. MUSCULOSKELETAL: Trace effusion over both knees, slightly more on the right, no joint line tenderness. Full range of motion bilateral knees without crepitus DERMATOLOGIC: Right knee there is a callus inferior midline, inferior to which there is a scab and patch of denuded skin. No drainage. Inferior to this there is some patchy erythema that extends 1-2 cm locally, minimally warm to touch, nontender Initial Vital Signs Initial Vital Signs: Vital Signs Temperature 98.3 F 10/25/19 19:25 Pulse Rate 71 10/25/19 19:25 Respiratory Rate 18 10/25/19 19:25 Pulse Oximetry 95 10/25/19 19:25 <Luis Rose DO - Last Filed: 10/26/19 03:39> Initial Vital Signs Initial Vital Signs: Vital Signs Temperature 98.3 F 10/25/19 19:25 Pulse Rate 71 10/25/19 19:25 Respiratory Rate 18 10/25/19 19:25 Pulse Oximetry 95 10/25/19 19:25 Course <Crystal Porter PA-C - Last Filed: 10/25/19 20:56> Vital Signs Vital signs: Vital Signs - 8 hr 10/25/19 19:25 10/25/19 19:34 Temperature 98.3 F 98.3 F Pulse Rate 71 71 Respiratory Rate 18 18 Blood Pressure [Right Arm] 146/68 H Pulse Oximetry 95 95 <Luis Rose, DO - Last Filed: 10/26/19 03:39> Vital Signs Vital signs: Vital Signs - 8 hr 10/25/19 19:25 10/25/19 19:34 Temperature 98.3 F 98.3 F Pulse Rate 71 71 Respiratory Rate 18 18 Blood Pressure [Right Arm] 146/68 H Pulse Oximetry 95 95 Discharge Plan Departure Patient Disposition: Home Clinical Impression: Cellulitis and abscess of leg Discharge Date/Time: 10/25/19 20:27 Instructions: DI for Cellulitis -- Adult Activity Restrictions/Additional Instructions: Right now it appears that your skin is infected, probably from the open area on your knee. There is not any indication of an infection of the bursa or joint, h owever as we talked about if you have acutely worsening swelling or new symptoms such as severe pain or fever, you should return to the ED. Otherwise, please start the antibiotic cephalexin that I prescribed for you, sent to [facility]. Get in 2 doses tonight before bedtime and continue every 6 hours tomorrow. This antibiotic is related to 1 you have had in the hospital previously so I suspect that you will tolerate it without problems. Please call your PCP office 1st thing in the morning and let them know you were seen in the emergency department this evening and that we would like you to follow-up in a couple of days for recheck. In the interim please avoid kneeling and pressure on your knees. We have placed a pressure dressing for comfort Prescriptions: New cephalexin 500 mg capsule 500 mg PO QID 10 Days Qty: 40 RF: 0 No Action erythromycin 5 mg/gram (0.5 %) ointment 1 applictn EYE-BOTH Q8H Qty: 3.5 RF: 0 hydrocodone-acetaminophen 5-325 mg tablet 1 tab PO Q6H Qty: 30 RF: 0 azithromycin [Zithromax Z-Igor] 250 mg tablet See Rx Instructions PO .COMPLEX Qty: 6 RF: 0 clobetasol 0.05 % solution 1 applictn TOP BID 7 Days Qty: 25 RF: 1 ketoconazole 2 % shampoo 1 applictn TOP 2XW Qty: 120 RF: 1 gabapentin 600 mg tablet 600 mg PO .COMPLEX MDD 5 Qty: 450 RF: 3 Invokana 100 mg tablet 100 mg PO DAILY Qty: 90 RF: 3 Glucose: Test Strips 1 str miscellaneous QDAY RF: 0 acetaminophen 325 mg Tablet 650 mg PO Q6HR PRN (Reason: Pain, Mild (1-3)) Qty: 60 RF: 0 aspirin 81 mg Tablet,Delayed Release (Dr/Ec) 81 mg PO DAILY Qty: 30 RF: 0 polyethylene glycol 3350 17 gram Powder In Packet 17 gm PO BID Qty: 60 RF: 0 melatonin 3 mg Tablet 3 mg PO BEDTIME Qty: 60 RF: 0 Referrals: Cas Marin MD [Primary Care Provider] -
--- NOTE | 2019-10-25 20:12 | PC.NURSE ---
Pt has erythemia around bursa in right knee
== END 2019-10-25 20:27 | disposition home or self-care (01) ==
PROVIDERS: Emergency Provider Internal Medicine; PCP Family Medicine
DX: L03.115 Cellulitis of right lower limb (principal)
CPT/HCPCS: 99281

== ENCOUNTER → 2019-11-24 13:26 | Outpatient (CLI) | payer MEDICARE, OTHER, SELFPAY ==
[2019-02-01 17:49] VITALS: BMI 31.0
--- NOTE | 2019-11-24 | DI.MRI.S_ITS ---
PROCEDURE: MR LUMBAR SPINE WO CON INDICATIONS: PAIN IN THORACIC AND LUMBAR SPINE TECHNIQUE: Noncontrast sagittal T1 spin echo and T2 fast echo, sagittal STIR, axial T1 and T2 fast spin echo through the lumbar spine. In cases with scoliosis, additional coronal T2 fast spin echo may be performed. COMPARISON: [facility], MR, MR LUMBAR SPINE WO CON, 10/14/2018, 9:32. FINDINGS: Image quality: Excellent. Alignment and Curvature: There is normal bony alignment. Remote left L3-L4 hemilaminectomy and posterior L4-L5 laminectomy. Interval posterior lateral ronda and pedicle screw fixation and interbody fusion from L3 through L5. Bone Marrow: Marrow is of normal overall signal. No acute vertebral body compression fractures. Spinal Cord: Conus medullaris terminates at the L1 level. Visualized cord demonstrates normal signal and size. Paraspinous Soft Tissues: No paravertebral masses. T12-L1: Normal appearance. L1-L2: Unchanged. Mild disc bulge. Mild facet hypertrophy. No canal stenosis. Mild bilateral foraminal stenosis. L2-L3: Slight interval progression of canal stenosis, moderate, slightly eccentric to the left, secondary to disc bulge and facet and ligament hypertrophy. Far left lateral disc protrusion has resolved. Mild bilateral foraminal narrowing. L3-L4: Interval improvement. A diffuse disc bulge present on the most recent previous study is no longer present. Interval left facetectomy with improvement in left foraminal narrowing, mild. L4-L5: Interval resolution of diffuse disc bulge and right paracentral disc protrusion. Remote posterior laminectomy. Interval posterior lateral fusion. Improvement in canal stenosis, mild. Interval improvement in right foraminal narrowing, moderate, with flattening deformity of the exiting right L4 nerve root. Mild to moderate left foraminal narrowing. L5-S1: Disc bulge. Facet and ligament hypertrophy. Progression of canal stenosis, moderate. Moderate right foraminal narrowing and moderate to severe left foraminal narrowing. Flattening deformity of the exiting bilateral L5 nerve roots. IMPRESSION: 1. Interval posterior lateral fusion and interbody fusion of L3-L5. 2. Improvement in central canal appearance with resolution of posterior disc bulges at L3-L4 and L4-L5. 3. Progression of canal stenosis at L2-L3, moderate area progression of canal stenosis at L5-S1, moderate. 4. Multilevel foraminal narrowing as described above. Left foraminal narrowing at L3-L4 is improved. Right foraminal narrowing and L4-L5 is improved. Dictated by: Jimmy Sears M.D. on 11/24/2019 at 15:22 Approved by: Jimmy Sears M.D. on 11/24/2019 at 15:38
--- NOTE | 2019-11-24 | DI.MRI.S_ITS ---
PROCEDURE: MR THORACIC SPINE WO CON INDICATIONS: PAIN IN THORACIC AND LUMBAR SPINE TECHNIQUE: Noncontrast sagittal T1 spine echo and T2 fast spin echo, sagittal STIR, axial T1 and T2 fast spin echo through the thoracic spine. COMPARISON: None. FINDINGS: Image quality: Excellent. Alignment and Curvature: There is normal bony alignment. Bone Marrow: Marrow is of normal overall signal. No acute vertebral body compression fractures. Spinal Cord: Visualized spinal cord is normal in size and signal. Paraspinous Soft Tissues: No paravertebral masses. Miscellaneous: Note is made of the presence of a right paracentral disc protrusion indenting on the right anterior cord at C6-C7. There is at least moderate canal stenosis and significant bilateral foraminal narrowing at this level. On axial images, the thoracic central canal and thoracic foramina appear widely patent at all scanned levels. IMPRESSION: 1. Normal appearance of thoracic cord. No thoracic canal stenosis or foraminal stenosis. 2. At C6-C7, there is a right paracentral disc protrusion with at least moderate canal stenosis and probable severe bilateral foraminal narrowing. Dictated by: Jimmy Sears M.D. on 11/24/2019 at 15:48 Approved by: Jimmy Sears M.D. on 11/24/2019 at 16:00
== END ==
PROVIDERS: PCP Family Medicine; Referring Provider Family Medicine; Visit Provider Neurological Surgery
DX: M54.6 Pain in thoracic spine (principal); M54.5 Low back pain; M50.223 Other cervical disc displacement at C6-C7 level; M48.061 Spinal stenosis, lumbar region without neurogenic claudication; M48.07 Spinal stenosis, lumbosacral region; Z98.1 Arthrodesis status
CPT/HCPCS: 72146; 72148

== ENCOUNTER 2019-12-28 08:14 | Emergency (ER) | payer MEDICARE, OTHER, SELFPAY ==
[2019-02-01 17:49] VITALS: BMI 31.0
[2019-12-28 08:15] VITALS: BP 157/74; PULSE 86; RESP 14; TEMP 37.9; O2SAT 99
[2019-12-28 08:24] VITALS: PULSE 88
--- NOTE | 2019-12-28 08:26 | ED.LOWEXIN ---
HPI - Extremity Injury (Lower) General Chief Complaint: Extremity Injury, Lower Stated Complaint: something tore lose in right leg Time Seen by Provider: 12/28/19 08:16 Source: patient Mode of arrival: Wheelchair Limitations: no limitations History of Present Illness HPI Narrative: This is a 69-year-old male who comes emergency department with complaint of right knee pain. 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 He was getting up from a kneeling position when he twisted his right leg and has had pain on the inside of the right knee. Patient states since then that any time he weight bears and twist he has pain on the inside of his right leg and feels like something snapped or popped when that event happened. This was yesterday. He did take oxycodone which was moderately helpful. He has also noticed redness on the inside of his right thigh several cm away from the area of pain this extending up towards his genitalia. He states that it is red, mildly painful on the top of the skin but not deeper. He states he was told he had a temperature here at the hospital. He denies any cold cough or congestion. He denies any chest pain or shortness of breath. He denies any nausea or vomiting. Patient states he has diabetes type 2 with neuropathy, COPD and chronically enlarged bursa on both knees. Patient states he has had an infection on the inside of his thigh once before which he states looked like a pizza and was found on antibiotics. He states he has had back surgery but denies prior surgery on his knee. He states he does have in biotic allergies. Denies recent tobacco quit 5 years ago, rare alcohol, occasional THC no other illicit. Dr. Marin is his primary care. Related Data Home Medications Medication Instructions Recorded Confirmed ascorbic acid (vitamin C) 500 mg 500 mg PO DAILY 12/21/19 12/28/19 capsule magnesium 200 mg tablet 200 mg PO DAILY 12/21/19 12/28/19 omega-3 fatty acids 1,000 mg 1,000 mg PO DAILY 12/21/19 12/28/19 capsule vitamin B complex 1 tab PO DAILY 12/21/19 12/28/19 Previous Rx's Medication Instructions Recorded ketoconazole 2 % shampoo 1 applictn TOP 2XW #120 ml 06/12/19 gabapentin 600 mg tablet 600 mg PO .COMPLEX #450 tab MDD 5 10/09/19 canagliflozin 100 mg tablet 100 mg PO DAILY #90 tab 10/11/19 Contour Test Strips #100 each 12/25/19 cephalexin 500 mg PO QID #40 cap 12/28/19 Allergies Allergy/AdvReac Type Severity Reaction Status Date / Time latex [LATEX] Allergy Mild SKIN Verified 12/28/19 08:23 IRRITATION Sulfa (Sulfonamide Allergy Mild BLISTER Verified 12/28/19 08:23 Antibiotics) [SULFA (SULFONAMIDE ANTIBIOTICS)] amoxicillin [AMOXICILLIN] AdvReac Severe NAUSEA/VOMI Verified 12/28/19 08:23 TING clavulanic acid AdvReac Severe AUGMENTIN/V Verified 12/28/19 08:23 [CLAVULANIC ACID] OMITING Penicillins [PENICILLINS] AdvReac Severe NAUSEA/VOMI Verified 12/28/19 08:23 TING ciprofloxacin [CIPROFLOXACIN] AdvReac Intermediate MADE PT Verified 12/28/19 08:23 FEEL RUMMY/NAUSEA erythromycin base AdvReac Intermediate SKIN Verified 12/28/19 08:23 [ERYTHROMYCIN BASE] CRAWLING Review of Systems Review of Systems ROS Unobtainable: All systems reviewed & are unremarkable except as noted in HPI and below Patient History Medical History (Updated 12/28/19 @ 09:09 by Jessy Ibarra DO) 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) Anxiety (Chronic) Back pain (Acute) Benign prostatic hyperplasia (Chronic 01/02/15) BPH (benign prostatic hyperplasia) (Chronic) Controlled type 2 diabetes mellitus without complication (Chronic 04/30/16) COPD (chronic obstructive pulmonary disease) (Acute) Cramps of lower extremity (Chronic 01/02/15) Degenerative arthritis of lumbar spine (Chronic) Degenerative disc disease (Chronic) Essential hypertension (Chronic) GERD (gastroesophageal reflux disease) (Chronic) Inflamed internal hemorrhoid (Chronic 02/2018) Left sided sciatica (Chronic) Lumbar disc herniation with radiculopathy (Chronic) Osteoarthritis of lower back (Chronic 09/19/14) Peripheral neuropathy (Acute) Pneumonia (Acute) Prepatellar bursitis of right knee (Chronic) Spinal stenosis (Acute) Tear of rotator cuff (Chronic 09/19/14) Surgical History (Updated 02/02/19 @ 09:18 by Shyanne Baldwin PA-C) H/O colonoscopy (Resolved 07/08/15) H/O sinus surgery (Resolved 2003) History of elbow surgery (Resolved) History of sebaceous cyst (Resolved 2000) Hx of hand surgery (Acute ~2004) Hx of inguinal hernia surgery (Resolved 1996) Hx of microdiscectomy (Acute 07/01/18) Status post epidural steroid injection (Acute) Status post laminectomy (Resolved) Social History marital status: (11/01/18) household members: none Smoking Status: Former smoker alcohol intake: current Smoking Status: Former smoker alcohol intake frequency: 0-2 drinks per day Alcohol type: beer Substance Use Type: does not use Exam Narrative Exam Narrative: GENERAL: Alert and oriented x three, well-nourished elderly male in mild distress. HEENT: Head normocephalic, atraumatic, EOMI, pupils reactive, face symmetric, moist mucous membranes NECK: Supple, full range of motion CARDIOVASCULAR: Regular rate and rhythm without murmurs, rubs or gallops. RESPIRATORY: Breath sounds equal bilaterally, no wheezes rales or rhonchi. ABDOMEN: Soft, nontender. Normoactive bowel sounds all 4 quadrants. No guarding or rebound, rigidity, no mass : No CVA tenderness EXTREMITIES: Normal range of motion, no clubbing or edema. Neurovascularly intact. Patient has tenderness at the lateral knee at the insertion of the lateral tendon. Patient does not have any other bony tenderness of the knee itself. He does have enlarged bursa bilaterally that are not erythematous, they are nontender and do not appear infected. Patient has normal joint laxity testing. He does have some very mild increased pain with compression and rotation of the joint. Patient also has an area of erythema that is very mildly raised with a fairly well-demarcated edge that stops 4-5 cm above the knee and above the area pain. He also has some mild redness of the scrotum. It does not gardenia. There is no vesicles. There is no blisters. There are no open wounds noted. NEUROLOGICAL: Cranial nerves II through XII grossly intact. Moving all extremities SKIN: Warm, dry, no petechiae, see above. Initial Vital Signs Initial Vital Signs: Vital Signs Temperature 100.3 F H 12/28/19 08:15 Pulse Rate 86 12/28/19 08:15 Respiratory Rate 14 12/28/19 08:15 Blood Pressure 157/74 H 12/28/19 08:15 Pulse Oximetry 99 12/28/19 08:15 Course Orders Ordered: Discontinued Medications Acetaminophen (Tylenol) 650 mg PO NOW ONE Stop: 12/28/19 10:07 Last Admin: 12/28/19 10:09 Dose: 650 mg Documented by: GOMEZ Cephalexin HCl (Keflex) 500 mg PO NOW ONE Stop: 12/28/19 10:03 Last Admin: 12/28/19 10:09 Dose: 500 mg Documented by: GOMEZ Vital Signs Vital signs: Vital Signs - 8 hr 12/28/19 08:15 12/28/19 08:24 12/28/19 08:58 Temperature 100.3 F H 100.0 F H Pulse Rate 86 80 Pulse Rate [Right Dorsalis Pedis] 88 Respiratory Rate 14 16 Blood Pressure 157/74 H Blood Pressure [Left Arm] 154/67 H Pulse Oximetry 99 99 12/28/19 09:28 Temperature Pulse Rate 72 Pulse Rate [Right Dorsalis Pedis] Respiratory Rate 18 Blood Pressure Blood Pressure [Left Arm] 138/64 Pulse Oximetry 99 MDM - Extremity Injury (Lower) Lab Data Attestation: I reviewed the patient's lab results. Result diagrams: 12/28/19 08:32 12/28/19 08:32 Labs: Lab Results 12/28/19 12/28/19 12/28/19 Range/Units 08:32 08:32 08:32 WBC 15.8 H (4.5-11.0) X10^3/uL RBC 5.59 (4.5-5.9) X10^6/uL Hgb 16.2 (13.5-17.5) g/dL Hct 49.0 (41-53) % MCV 87.6 (80-100) fL MCH 28.9 (26-34) PG MCHC 33.0 (30-36) % RDW 14.0 (11.6-14.8) % Plt Count 153 (150-400) X10^3/uL Neut % (Auto) 94.3 H (50-75) % Lymph % (Auto) 2.6 L (25-40) % [place] % (Auto) 2.8 L (3-14) % Eos % (Auto) 0.0 L (2-4) % Baso % (Auto) 0.3 (0-2) % Neut # (Auto) 98113 H (9395-8760) /uL Lymph # (Auto) 400 L (7331-5775) /uL [place] # (Auto) 400 (0-900) /uL Eos # (Auto) 0 (0-450) /uL Baso # (Auto) 0 (0-100) /uL Sodium 136 L (137-145) mmol/L Potassium 4.3 (3.4-5.1) mmol/L Chloride 101 (98-107) mmol/L Carbon Dioxide 24 (22-32) mmol/L BUN 16 (9-20) mg/dL Creatinine 0.87 (0.66-1.25) mg/dL Estimated GFR > 60.0 (>60) mL/min BUN/Creatinine Ratio 18.4 (6-22) Glucose 154 H (80-110) mg/dL Lactate (0.7-2.1) mmol/L Calcium 9.2 (8.4-10.2) mg/dL Total Bilirubin 0.7 (0.2-1.3) mg/dL AST 32 (17-59) IU/L ALT 32 (<50) IU/L Alkaline Phosphatase 61 (38-126) U/L Total Protein 7.6 (6.3-8.2) g/dL Albumin 4.3 (3.5-5.0) g/dL Globulin 3.3 (1.7-4.1) g/dL Albumin/Globulin Ratio 1.3 (1.0-2.8) Procalcitonin 0.19 (<0.5) ng/mL 12/28/19 Range/Units 08:32 WBC (4.5-11.0) X10^3/uL RBC (4.5-5.9) X10^6/uL Hgb (13.5-17.5) g/dL Hct (41-53) % MCV (80-100) fL MCH (26-34) PG MCHC (30-36) % RDW (11.6-14.8) % Plt Count (150-400) X10^3/uL Neut % (Auto) (50-75) % Lymph % (Auto) (25-40) % [place] % (Auto) (3-14) % Eos % (Auto) (2-4) % Baso % (Auto) (0-2) % Neut # (Auto) (9547-6319) /uL Lymph # (Auto) (3141-2694) /uL [place] # (Auto) (0-900) /uL Eos # (Auto) (0-450) /uL Baso # (Auto) (0-100) /uL Sodium (137-145) mmol/L Potassium (3.4-5.1) mmol/L Chloride (98-107) mmol/L Carbon Dioxide (22-32) mmol/L BUN (9-20) mg/dL Creatinine (0.66-1.25) mg/dL Estimated GFR (>60) mL/min BUN/Creatinine Ratio (6-22) Glucose (80-110) mg/dL Lactate 2.1 (0.7-2.1) mmol/L Calcium (8.4-10.2) mg/dL Total Bilirubin (0.2-1.3) mg/dL AST (17-59) IU/L ALT (<50) IU/L Alkaline Phosphatase (38-126) U/L Total Protein (6.3-8.2) g/dL Albumin (3.5-5.0) g/dL Globulin (1.7-4.1) g/dL Albumin/Globulin Ratio (1.0-2.8) Procalcitonin (<0.5) ng/mL Imaging Data Right knee: Radiologist's Impression: [address] [address] XRay Report Signed Patient: Ryland Quevedo [facility]#: [id number] : 9Acct:[id number] Age/Sex: 69 / MDate of Service: 12/28/19 Loc: ED Accession Number: [id number] Procedure: XR knee RT 3V Ordering Provider: Jessy Ibarra D.O. PROCEDURE: XR KNEE RT 3V INDICATIONS: bilateral knee pain TECHNIQUE: 3 views of the right knee were acquired. COMPARISON: None. FINDINGS: Bones: No fractures or dislocations. No suspicious bony lesions. Small osteophytes. Mild medial and lateral compartment joint space loss. Soft tissues: Small joint effusion. No suspicious soft tissue calcifications. Chondrocalcinosis. IMPRESSION: Mild degenerative arthritis. No evidence acute bony abnormality of the right knee. If clinical suspicion and/or symptoms persist, further assessment with repeat plain films, or advanced imaging (e.g., CT, MRI, or bone scan) may be helpful for further assessment. Dictated by: Jimmy Sears M.D. on 12/28/2019 at 9:00 Approved by: Jimmy Sears M.D. on 12/28/2019 at 9:01 Left knee: Radiologist's Impression: [address] [address] XRay Report Signed Patient: Ryland Quevedo [facility]#: [id number] : 9Acct:[id number] Age/Sex: 69 / MDate of Service: 12/28/19 Loc: ED Accession Number: [id number] Procedure: XR knee LT 3V Ordering Provider: Jessy Ibarra D.O. PROCEDURE: XR KNEE LT 3V INDICATIONS: bilateral knee pain TECHNIQUE: 3 views of the left knee were acquired. COMPARISON: None. FINDINGS: Bones: No fractures or dislocations. No suspicious bony lesions. Mild medial and lateral compartment joint space loss. Soft tissues: No joint effusion. No suspicious soft tissue calcifications. Chondrocalcinosis. IMPRESSION: Chondrocalcinosis. Mild medial compartment and lateral compartment joint space loss. No evidence acute bony abnormality of the left knee. If clinical suspicion and/or symptoms persist, further assessment with repeat plain films, or advanced imaging (e.g., CT, MRI, or bone scan) may be helpful for further assessment. Dictated by: Jimmy Sears M.D. on 12/28/2019 at 9:01 Approved by: Jimmy Sears M.D. on 12/28/2019 at 9:02 [facility] Narrative Medical decision making narrative: Patient's the x-rays do not show any acute obvious changes. I do suspect patient may have had a ligament or tendon injury to the right knee based on his description of symptoms and physical exam. He does have a cellulitis on the right side but this is about 4 5 cm from the knee and my suspicion for acute infectious process within the knee itself is significantly lower. Patient did have infection similar area on his lower extremity which responded well to Keflex in the past. Patient's labs do show an elevation in white count, chemistry shows sodium 136 with otherwise normal electrolytes and renal function. Lactate is 2.1 2.1 and procalcitonin is 0.19 making sepsis unlikely. And are pending. Plan for Lenard wrap for the right knee with follow-up with primary care or orthopedic surgery and to start oral antibiotics for his cellulitis with follow-up with primary care or return to the ER if he is not improving. Discussed findings with Dr. Marin, he will help faciliate follow up for patient. Discharge Plan Departure Patient Disposition: Home Clinical Impression: Cellulitis of right thigh Knee pain, right Qualifiers: Chronicity: acute Qualified Code(s): M25.561 - Pain in right knee Discharge Date/Time: 12/28/19 10:20 Instructions: DI for Knee Pain Activity Restrictions/Additional Instructions: Follow up with your physician if your symptoms have not resolved in the next several days. Take antibiotics until completely gone. It does appear to have a cellulitis on your right thigh if it is continuing to worsen return to the emergency department, if you continue to have fevers, redness, swelling that is increasing increasing pain in her leg, new numbness or tingling or other new or concerning symptoms. Prescription was sent to [facility] in [place]. Start your antibiotics today. Your x-ray today shows chronic changes in both knees but no acute fracture or break, I suspect she may have a tendon or ligament injury and recommend follow-up with primary care or orthopedic surgery in the next 1-2 weeks. Elevated affected body part to decrease swelling. OK to use ice pack on the affected body part. Use for 15-20 minutes each time, for 5-6x per day. If you develop worsening pain, numbness, tingling, discoloration of the affected body part, loosen the splint by loosening the LENARD wrap, and either see your doctor for an urgent re-assessment, or return to the Emergency Department. Return to the Emergency Department for any new or worsening symptoms. Prescriptions: New cephalexin 500 mg capsule 500 mg PO QID Qty: 40 RF: 0 No Action ascorbic acid (vitamin C) 500 mg capsule 500 mg PO DAILY RF: 0 omega-3 fatty acids [Fish Oil Concentrate] 1,000 mg capsule 1,000 mg PO DAILY RF: 0 vitamin B complex [B Complex-Vitamin B12] Tablet 1 tab PO DAILY RF: 0 magnesium 200 mg tablet 200 mg PO DAILY RF: 0 ketoconazole 2 % shampoo 1 applictn TOP 2XW Qty: 120 RF: 1 gabapentin 600 mg tablet 600 mg PO .COMPLEX MDD 5 Qty: 450 RF: 3 Invokana 100 mg tablet 100 mg PO DAILY Qty: 90 RF: 3 (DME) Contour Test Strips 0 .Route .MEDSUPPLY Qty: 100 RF: 0 Referrals: Cas Marin MD [Primary Care Provider] - Jd Waters MD [Physician] -
[2019-12-28 08:47] LABS: Add Manual Diff / Slide Review NO; Basophils Absolute Auto 0 /uL (0-100); Basophils Percent Auto 0.3 % (0-2); Eosinophils Absolute Auto 0 /uL (0-450); Hemoglobin 16.2 g/dL (13.5-17.5); Lymphocytes Absolute Auto 400 /uL (1100-4500); Lymphocytes Percent Auto 2.6 % (25-40); Mean Corpuscular Hemoglobin 28.9 PG (26-34); Mean Corpuscular Volume 87.6 fL (80-100); Monocytes Absolute Auto 400 /uL (0-900); Monocytes Percent Auto 2.8 % (3-14); Neutrophils Absolute Auto 14900 /uL (1500-7000); Neutrophils Percent Auto 94.3 % (50-75); Platelet Count 153 X10^3/uL (150-400); Red Blood Cell Count 5.59 X10^6/uL (4.5-5.9); White Blood Cell Count 15.8 X10^3/uL (4.5-11.0)
[2019-12-28 08:57] LABS: Alanine Aminotransferase 32 IU/L (<50); Albumin 4.3 g/dL (3.5-5.0); Albumin Globulin Ratio 1.3 (1.0-2.8); Alkaline Phosphatase 61 U/L (38-126); Aspartate Aminotransferase 32 IU/L (17-59); BUN Creatinine Ratio 18.4 (6-22); Bilirubin Total 0.7 mg/dL (0.2-1.3); Blood Urea Nitrogen 16 mg/dL (9-20); Calcium 9.2 mg/dL (8.4-10.2); Carbon Dioxide 24 mmol/L (22-32); Chloride 101 mmol/L (98-107); Estimated Glomerular Filt Rate > 60.0 mL/min (>60); Globulin 3.3 g/dL (1.7-4.1); Glucose 154 mg/dL (80-110); HEMOLYSIS < 15 (0-50); Lactate (Lactic Acid) 2.1 mmol/L (0.7-2.1); Potassium 4.3 mmol/L (3.4-5.1); Sodium 136 mmol/L (137-145); Total Protein 7.6 g/dL (6.3-8.2)
[2019-12-28 08:58] VITALS: BP 154/67; PULSE 80; RESP 16; TEMP 37.8; O2SAT 99
[2019-12-28 09:28] VITALS: BP 138/64; PULSE 72; RESP 18; O2SAT 99
[2019-12-28 09:46] LABS: Procalcitonin 0.19 ng/mL (<0.5)
[2019-12-28 10:09] VITALS: TEMP 37.8
[2019-12-28] MEDS: cephALEXin 250 MG CAPSULE 500 MG PO (10:09)
[2019-12-28] MEDS: ACETAMINOPHEN 325 MG TABLET 650 MG PO (10:09)
== END 2019-12-28 10:20 | disposition home or self-care (01) ==
PROVIDERS: Emergency Provider Emergency Medicine; PCP Family Medicine
DX: L03.115 Cellulitis of right lower limb (principal); M25.561 Pain in right knee; M25.562 Pain in left knee
CPT/HCPCS: 36415; 73562; 80053; 83605; 84145; 85025; 87040; 99284

== ENCOUNTER 2019-12-31 16:17 | Emergency (ER) | payer MEDICARE, OTHER, SELFPAY ==
[2019-02-01 17:49] VITALS: BMI 31.0
--- NOTE | 2019-12-31 16:23 | ED_ITS ---
HPI - Extremity Problem General Chief complaint: Skin/Abscess/Foreign Body Stated complaint: skin infection on his legs, getting worse Time Seen by Provider: 12/31/19 16:19 Source: patient and old records reviewed Mode of arrival: Ambulatory Limitations: no limitations History of Present Illness HPI Narrative: This is a 69-year-old male who comes to the emergency department with complaint of infection on the inside of his right leg extending over the scrotum and left leg. Patient was seen by myself on the for knee pain but also rash on the right inner thigh. Since then it has become more red and spread further. Patient states that he has had 1 fever of 101 F. He has felt nauseated but not had vomiting. He denies any chest pain, no shortness of breath. He denies any changes with bowel movements. No issues with urination. He states the skin is painful but does not have any deeper muscular pain. Does extend over the scrotum and he states there is some swelling. Patient states he has had similar symptoms in the past and was on Keflex which is what he was started on last time and had a good outcome but has not improved this time. He did try some ketoconazole topically for 2 days and he also use some hydrocortisone topically as well. He takes Invokana for diabetes type 2, gabapentin for neuropathy secondary to his diabetes, he also has a history of hypertension, spinal stenosis, degenerative disc disease, COPD and BPH. He is a former smoker with occasional tobacco use. Related Data Home Medications Medication Instructions Recorded Confirmed ascorbic acid (vitamin C) 500 mg 500 mg PO DAILY 12/21/19 12/28/19 capsule magnesium 200 mg tablet 200 mg PO DAILY 12/21/19 12/28/19 omega-3 fatty acids 1,000 mg 1,000 mg PO DAILY 12/21/19 12/28/19 capsule vitamin B complex 1 tab PO DAILY 12/21/19 12/28/19 Previous Rx's Medication Instructions Recorded ketoconazole 2 % shampoo 1 applictn TOP 2XW #120 ml 06/12/19 gabapentin 600 mg tablet 600 mg PO .COMPLEX #450 tab MDD 5 10/09/19 canagliflozin 100 mg tablet 100 mg PO DAILY #90 tab 10/11/19 Contour Test Strips #100 each 12/25/19 cephalexin 500 mg PO QID #40 cap 12/28/19 clindamycin HCl 300 mg PO QID #40 cap 12/31/19 itraconazole 200 mg PO DAILY #14 tab 12/31/19 Allergies Allergy/AdvReac Type Severity Reaction Status Date / Time latex [LATEX] Allergy Mild SKIN Verified 12/28/19 08:23 IRRITATION Sulfa (Sulfonamide Allergy Mild BLISTER Verified 12/28/19 08:23 Antibiotics) [SULFA (SULFONAMIDE ANTIBIOTICS)] amoxicillin [AMOXICILLIN] AdvReac Severe NAUSEA/VOMI Verified 12/28/19 08:23 TING clavulanic acid AdvReac Severe AUGMENTIN/V Verified 12/28/19 08:23 [CLAVULANIC ACID] OMITING Penicillins [PENICILLINS] AdvReac Severe NAUSEA/VOMI Verified 12/28/19 08:23 TING ciprofloxacin [CIPROFLOXACIN] AdvReac Intermediate MADE PT Verified 12/28/19 08:23 FEEL RUMMY/NAUSEA erythromycin base AdvReac Intermediate SKIN Verified 12/28/19 08:23 [ERYTHROMYCIN BASE] CRAWLING Review of Systems Review of Systems ROS Unobtainable: All systems reviewed & are unremarkable except as noted in HPI and below Patient History Medical History 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) Anxiety (Chronic) Back pain (Acute) Benign prostatic hyperplasia (Chronic 01/02/15) BPH (benign prostatic hyperplasia) (Chronic) Controlled type 2 diabetes mellitus without complication (Chronic 04/30/16) COPD (chronic obstructive pulmonary disease) (Acute) Cramps of lower extremity (Chronic 01/02/15) Degenerative arthritis of lumbar spine (Chronic) Degenerative disc disease (Chronic) Essential hypertension (Chronic) GERD (gastroesophageal reflux disease) (Chronic) Inflamed internal hemorrhoid (Chronic 02/2018) Left sided sciatica (Chronic) Lumbar disc herniation with radiculopathy (Chronic) Osteoarthritis of lower back (Chronic 09/19/14) Peripheral neuropathy (Acute) Pneumonia (Acute) Prepatellar bursitis of right knee (Chronic) Spinal stenosis (Acute) Tear of rotator cuff (Chronic 09/19/14) Surgical History H/O colonoscopy (Resolved 07/08/15) H/O sinus surgery (Resolved 2003) History of elbow surgery (Resolved) History of sebaceous cyst (Resolved 2000) Hx of hand surgery (Acute ~2004) Hx of inguinal hernia surgery (Resolved 1996) Hx of microdiscectomy (Acute 07/01/18) Status post epidural steroid injection (Acute) Status post laminectomy (Resolved) Social History marital status: (11/01/18) household members: none Smoking Status: Former smoker alcohol intake: current Smoking Status: Former smoker alcohol intake frequency: 0-2 drinks per day Alcohol type: beer Substance Use Type: does not use Exam Narrative Exam Narrative: GENERAL: Alert and oriented x three, well-nourished male in mild distress. HEENT: Head normocephalic, atraumatic, EOMI, pupils reactive, face symmetric, moist mucous membranes NECK: Supple, full range of motion CARDIOVASCULAR: Regular rate and rhythm without murmurs, rubs or gallops. RESPIRATORY: Breath sounds equal bilaterally, no wheezes rales or rhonchi. ABDOMEN: Soft, nontender. Normoactive bowel sounds all 4 quadrants. No guarding or rebound, rigidity, no mass : No CVA tenderness, testicles are mildly swollen and tendern, no crepitius, no blistering, otherwise normal male genitalia. EXTREMITIES: Normal range of motion, no clubbing or edema. Neurovascularly intact NEUROLOGICAL: Cranial nerves II through XII grossly intact. Moving all extremities SKIN: Warm, dry, no petechiae, patient has erythema extending from about 5 cm above the knee towards the groin, there is also some extending across the bottom of the scrotum and into the right groin. There are no vesicles or drainage. There is some flaking of the skin. The color is beefy red with scalloping on the edges. Initial Vital Signs Initial Vital Signs: Vital Signs Temperature 97.8 F 12/31/19 16:30 Pulse Rate 69 12/31/19 16:30 Respiratory Rate 18 12/31/19 16:30 Blood Pressure 188/84 H 12/31/19 16:30 Pulse Oximetry 100 12/31/19 16:30 Course Orders Ordered: ED Orders 12/31/19 16:49 CT pelvis w con Stat 12/31/19 16:50 Complete Blood Count AUTO DIFF Stat Comprehensive Metabolic Panel Stat Lactate (Lactic Acid) Stat Procalcitonin Stat 12/31/19 17:33 Blood Culture Stat Discontinued Medications Fluconazole (Diflucan) 150 mg PO NOW ONE Stop: 12/31/19 18:28 Sodium Chloride (Normal Saline 0.9%) 1,000 mls @ 1,000 mls/hr IV BOLUS ONE Stop: 12/31/19 17:37 Last Admin: 12/31/19 17:05 Dose: 1,000 mls/hr Documented by: ISAIAH Clindamycin Phosphate (Cleocin) 900 mg in 50 mls @ 50 mls/hr IV NOW ONE Stop: 12/31/19 17:41 Last Infusion: 12/31/19 18:20 Dose: 0 mls/hr Documented by: TYRESESENLars Admin: 12/31/19 17:05 Dose: 50 mls/hr Documented by: ISAIAH Vital Signs Vital signs: Vital Signs - 8 hr 12/31/19 16:30 12/31/19 17:33 12/31/19 18:32 Temperature 97.8 F Pulse Rate 69 54 L 58 L Respiratory Rate 18 16 Blood Pressure 188/84 H Blood Pressure [Right Arm] 181/82 H 164/73 H Pulse Oximetry 100 97 MDM - Extremity (Nontraumatic) Lab Data Result diagrams: 12/31/19 16:50 12/31/19 16:50 Labs: Lab Results 12/31/19 12/31/19 12/31/19 Range/Units 16:50 16:50 16:50 WBC 6.3 (4.5-11.0) X10^3/uL RBC 5.63 (4.5-5.9) X10^6/uL Hgb 16.3 (13.5-17.5) g/dL Hct 49.3 (41-53) % MCV 87.5 (80-100) fL MCH 28.9 (26-34) PG MCHC 33.0 (30-36) % RDW 14.0 (11.6-14.8) % Plt Count 174 (150-400) X10^3/uL Neut % (Auto) 63.4 (50-75) % Lymph % (Auto) 23.4 L (25-40) % Evans % (Auto) 9.8 (3-14) % Eos % (Auto) 2.1 (2-4) % Baso % (Auto) 1.3 (0-2) % Neut # (Auto) 4000 (1114-2895) /uL Lymph # (Auto) 1500 (2921-1895) /uL Evans # (Auto) 600 (0-900) /uL Eos # (Auto) 100 (0-450) /uL Baso # (Auto) 100 (0-100) /uL Sodium 137 (137-145) mmol/L Potassium 4.1 (3.4-5.1) mmol/L Chloride 105 (98-107) mmol/L Carbon Dioxide 22 (22-32) mmol/L BUN 22 H (9-20) mg/dL Creatinine 0.92 (0.66-1.25) mg/dL Estimated GFR > 60.0 (>60) mL/min BUN/Creatinine Ratio 23.9 H (6-22) Glucose 119 H (80-110) mg/dL Lactate (0.7-2.1) mmol/L Calcium 9.0 (8.4-10.2) mg/dL Total Bilirubin 0.4 (0.2-1.3) mg/dL AST 42 (17-59) IU/L ALT 38 (<50) IU/L Alkaline Phosphatase 68 (38-126) U/L Total Protein 7.6 (6.3-8.2) g/dL Albumin 4.1 (3.5-5.0) g/dL Globulin 3.5 (1.7-4.1) g/dL Albumin/Globulin Ratio 1.2 (1.0-2.8) Procalcitonin < 0.05 (<0.5) ng/mL 12/31/19 Range/Units 16:50 WBC (4.5-11.0) X10^3/uL RBC (4.5-5.9) X10^6/uL Hgb (13.5-17.5) g/dL Hct (41-53) % MCV (80-100) fL MCH (26-34) PG MCHC (30-36) % RDW (11.6-14.8) % Plt Count (150-400) X10^3/uL Neut % (Auto) (50-75) % Lymph % (Auto) (25-40) % Evans % (Auto) (3-14) % Eos % (Auto) (2-4) % Baso % (Auto) (0-2) % Neut # (Auto) (8658-0047) /uL Lymph # (Auto) (5572-2000) /uL Evans # (Auto) (0-900) /uL Eos # (Auto) (0-450) /uL Baso # (Auto) (0-100) /uL Sodium (137-145) mmol/L Potassium (3.4-5.1) mmol/L Chloride (98-107) mmol/L Carbon Dioxide (22-32) mmol/L BUN (9-20) mg/dL Creatinine (0.66-1.25) mg/dL Estimated GFR (>60) mL/min BUN/Creatinine Ratio (6-22) Glucose (80-110) mg/dL Lactate 1.2 (0.7-2.1) mmol/L Calcium (8.4-10.2) mg/dL Total Bilirubin (0.2-1.3) mg/dL AST (17-59) IU/L ALT (<50) IU/L Alkaline Phosphatase (38-126) U/L Total Protein (6.3-8.2) g/dL Albumin (3.5-5.0) g/dL Globulin (1.7-4.1) g/dL Albumin/Globulin Ratio (1.0-2.8) Procalcitonin (<0.5) ng/mL Imaging Data CT scan - abdomen/pelvis: Radiologist's Impression: [address] [address] [address] Scan Report Signed Patient: Ryland Quevedo [facility]#: [id number] : 9Acct:[id number] Age/Sex: 69 / MDate of Service: 12/31/19 Loc: ED Accession Number: [id number] Procedure: CT pelvis w con Ordering Provider: Jessy Ibarra D.O. PROCEDURE: CT PELVIS W CON INDICATIONS: groin and leg infection, +dm TECHNIQUE: After the administration of oral contrast and intravenous contrast, 5 mm thick sections acquired from the iliac crests to the symphysis. 5 mm thick coronal and sagittal reformats were acquired. For radiation dose reduction, the following was used: automated exposure control, adjustment of mA and/or kV according to patient size. COMPARISON: [facility], CT, CT LUMBAR SPINE WO CON, 06/02/2019, 6:52. FINDINGS: Image quality: Diagnostic. Soft tissues: Subcutaneous edema is identified along the medial aspect of the upper to mid right thigh without a drainable or loculated fluid collection. No edema is identified extending into the deep fascial planes. There is no soft tissue air or or associated fluid collections within the imaged portions of the upper right thigh. Otherwise, there are areas of subcutaneous edema identified along the posterior lateral margins of both gluteal regions. No associated loculated fluid collections are evident. Again, no edema is seen extending into the deep fascial planes. No significant atrophy involving the imaged muscles of the gluteal regions or upper bilateral size is evident. Please note that the ligamentous, tendinous, and cartilaginous structures of the thigh are not adequately evaluated. Imaged bowel loops are nondilated. The appendix is well-visualized and normal. No free fluid, loculated fluid collection, or free air is evident. Small inguinal lymph nodes are identified, which do not have a pathologic appearance. No pelvic lymphadenopathy is evident. There is mild atherosclerosis involving the imaged iliac arteries. No pelvic adenopathy is identified. No significant inguinal hernias are appreciated. No significant wall thickening of the urinary bladder is identified. The prostate gland is borderline enlarged. Small scrotal hydroceles are evident. Bones: No suspicious bony lesions. Mild to moderate degenerative changes of both hips are present. There is a large os acetabuli on the right. Bilateral proximal femoral bone islands are present. Mild degenerative changes of the other pelvic joints are noted. Postoperative and degenerative changes of the lower lumbar spine are not adequately characterized. IMPRESSION: 1. Subcutaneous edema overlying the bilateral gluteal regions and at the medial aspect of the upper to mid right thigh likely represents cellulitis. There is no abscess. No definitive edema is seen extending into the deep fascial planes to suggest nec rotizing fasciitis. However, if there is high clinical concern for necrotizing fasciitis, contrast enhanced MRI is recommended for further evaluation. 2. No drainable fluid collections. Dictated by: Vitaliy Son M.D. on 12/31/2019 at 16:45 Approved by: Vitaliy Son M.D. on 12/31/2019 at 16:49 MDM Narrative Medical decision making narrative: Patient has rash vs cellulitis which is not improving. He had similar symptoms and location in the past and was placed on keflex with resolution. He was given keflex again without improvement, he did try ketoconazole topically x2 day with no improvement but was also using topical hydrocortisone. Necrotizing infection lower on differential but imaging included today. Patient is afebrile here, he has improved wbc count, with negative procalcitonin and lactate, CT has changes consistent with cellulitis, no deep fascial involvement, no gas or air. Plan for recheck within 24 hours and treat with oral antibiotics and antifungal for likely fungal infection with bacterial superinfection. No signs of sepsis. Patient is to return tomorrow for recheck. Discharge Plan Departure Patient Disposition: Home Clinical Impression: Abscess or cellulitis of groin Activity Restrictions/Additional Instructions: Return tomorrow for recheck of your infection. Continue oral antibiotic and antifungal until completely gone. Do not use topical steroids on the affected area. Return for fevers greater than 100.4F, increasing or spreading redness, swelling, increasing pain, vomiting, abdominal or flank pain or other new or concerning symptoms. Prescriptions: New itraconazole 200 mg tablet 200 mg PO DAILY Qty: 14 RF: 0 clindamycin HCl 300 mg capsule 300 mg PO QID Qty: 40 RF: 0 No Action ascorbic acid (vitamin C) 500 mg capsule 500 mg PO DAILY RF: 0 omega-3 fatty acids [Fish Oil Concentrate] 1,000 mg capsule 1,000 mg PO DAILY RF: 0 vitamin B complex [B Complex-Vitamin B12] Tablet 1 tab PO DAILY RF: 0 magnesium 200 mg tablet 200 mg PO DAILY RF: 0 ketoconazole 2 % shampoo 1 applictn TOP 2XW Qty: 120 RF: 1 gabapentin 600 mg tablet 600 mg PO .COMPLEX MDD 5 Qty: 450 RF: 3 Invokana 100 mg tablet 100 mg PO DAILY Qty: 90 RF: 3 (DME) Contour Test Strips 0 .Route .MEDSUPPLY Qty: 100 RF: 0 cephalexin 500 mg capsule 500 mg PO QID Qty: 40 RF: 0 Referrals: Cas Marin MD [Primary Care Provider] -
[2019-12-31 16:30] VITALS: BP 188/84; PULSE 69; RESP 18; TEMP 36.6; O2SAT 100
--- NOTE | 2019-12-31 16:49 | DI.CT.S_ITS ---
PROCEDURE: CT PELVIS W CON INDICATIONS: groin and leg infection, +dm TECHNIQUE: After the administration of oral contrast and intravenous contrast, 5 mm thick sections acquired from the iliac crests to the symphysis. 5 mm thick coronal and sagittal reformats were acquired. For radiation dose reduction, the following was used: automated exposure control, adjustment of mA and/or kV according to patient size. COMPARISON: [facility], CT, CT LUMBAR SPINE WO CON, 06/02/2019, 6:52. FINDINGS: Image quality: Diagnostic. Soft tissues: Subcutaneous edema is identified along the medial aspect of the upper to mid right thigh without a drainable or loculated fluid collection. No edema is identified extending into the deep fascial planes. There is no soft tissue air or or associated fluid collections within the imaged portions of the upper right thigh. Otherwise, there are areas of subcutaneous edema identified along the posterior lateral margins of both gluteal regions. No associated loculated fluid collections are evident. Again, no edema is seen extending into the deep fascial planes. No significant atrophy involving the imaged muscles of the gluteal regions or upper bilateral size is evident. Please note that the ligamentous, tendinous, and cartilaginous structures of the thigh are not adequately evaluated. Imaged bowel loops are nondilated. The appendix is well-visualized and normal. No free fluid, loculated fluid collection, or free air is evident. Small inguinal lymph nodes are identified, which do not have a pathologic appearance. No pelvic lymphadenopathy is evident. There is mild atherosclerosis involving the imaged iliac arteries. No pelvic adenopathy is identified. No significant inguinal hernias are appreciated. No significant wall thickening of the urinary bladder is identified. The prostate gland is borderline enlarged. Small scrotal hydroceles are evident. Bones: No suspicious bony lesions. Mild to moderate degenerative changes of both hips are present. There is a large os acetabuli on the right. Bilateral proximal femoral bone islands are present. Mild degenerative changes of the other pelvic joints are noted. Postoperative and degenerative changes of the lower lumbar spine are not adequately characterized. IMPRESSION: 1. Subcutaneous edema overlying the bilateral gluteal regions and at the medial aspect of the upper to mid right thigh likely represents cellulitis. There is no abscess. No definitive edema is seen extending into the deep fascial planes to suggest necrotizing fasciitis. However, if there is high clinical concern for necrotizing fasciitis, contrast enhanced MRI is recommended for further evaluation. 2. No drainable fluid collections. Dictated by: Vitaliy Son M.D. on 12/31/2019 at 16:45 Approved by: Vitaliy Son M.D. on 12/31/2019 at 16:49
[2019-12-31] MEDS: CLINDAMYCIN 900 MG/50 ML PIGGYBACK 50 MG IV (17:05)
[2019-12-31] MEDS: SODIUM CHLORIDE 0.9% 1,000 ML 1000 ML IV (17:05)
[2019-12-31 17:12] LABS: Add Manual Diff / Slide Review NO; Basophils Absolute Auto 100 /uL (0-100); Basophils Percent Auto 1.3 % (0-2); Eosinophils Absolute Auto 100 /uL (0-450); Eosinophils Percent Auto 2.1 % (2-4); Hematocrit 49.3 % (41-53); Hemoglobin 16.3 g/dL (13.5-17.5); Lymphocytes Absolute Auto 1500 /uL (1100-4500); Lymphocytes Percent Auto 23.4 % (25-40); Mean Corpuscular Hemoglobin 28.9 PG (26-34); Mean Corpuscular Volume 87.5 fL (80-100); Monocytes Absolute Auto 600 /uL (0-900); Monocytes Percent Auto 9.8 % (3-14); Neutrophils Absolute Auto 4000 /uL (1500-7000); Neutrophils Percent Auto 63.4 % (50-75); Red Blood Cell Count 5.63 X10^6/uL (4.5-5.9); White Blood Cell Count 6.3 X10^3/uL (4.5-11.0)
[2019-12-31 17:14] LABS: Lactate (Lactic Acid) 1.2 mmol/L (0.7-2.1)
[2019-12-31 17:15] LABS: Alanine Aminotransferase 38 IU/L (<50); Albumin 4.1 g/dL (3.5-5.0); Albumin Globulin Ratio 1.2 (1.0-2.8); Alkaline Phosphatase 68 U/L (38-126); Aspartate Aminotransferase 42 IU/L (17-59); BUN Creatinine Ratio 23.9 (6-22); Bilirubin Total 0.4 mg/dL (0.2-1.3); Blood Urea Nitrogen 22 mg/dL (9-20); Carbon Dioxide 22 mmol/L (22-32); Chloride 105 mmol/L (98-107); Estimated Glomerular Filt Rate > 60.0 mL/min (>60); Globulin 3.5 g/dL (1.7-4.1); Glucose 119 mg/dL (80-110); HEMOLYSIS 31 (0-50); Potassium 4.1 mmol/L (3.4-5.1); Sodium 137 mmol/L (137-145); Total Protein 7.6 g/dL (6.3-8.2)
[2019-12-31 17:29] VITALS: BP 172/95; PULSE 63; RESP 18; O2SAT 98
--- NOTE | 2019-12-31 17:30 | PC.NURSE ---
right thigh rash radiating around the back of leg, scrotal,inguinal area and also between buttocks.
[2019-12-31 17:31] LABS: Procalcitonin < 0.05 ng/mL (<0.5)
[2019-12-31 17:33] VITALS: BP 181/82; PULSE 54; RESP 16
[2019-12-31 17:37] LABS: Platelet Count 174 X10^3/uL (150-400)
[2019-12-31 18:00] VITALS: BP 173/78; PULSE 63; RESP 16; O2SAT 98
[2019-12-31 18:32] VITALS: BP 164/73; PULSE 58; O2SAT 97
[2019-12-31] MEDS: FLUCONAZOLE 150 MG TABLET PO (18:51)
== END 2019-12-31 19:05 | disposition home or self-care (01) ==
PROVIDERS: Emergency Provider Emergency Medicine; PCP Family Medicine
DX: L03.314 Cellulitis of groin (principal)
CPT/HCPCS: 36415; 72193; 80053; 83605; 84145; 85025; 87040; 96365; 99284; 99285; Q9967

== ENCOUNTER 2020-01-01 18:02 | Emergency (ER) | payer MEDICARE, OTHER, SELFPAY ==
[2019-02-01 17:49] VITALS: BMI 31.0
[2020-01-01 18:10] VITALS: BP 155/95; PULSE 66; RESP 16; TEMP 36.8; O2SAT 99
--- NOTE | 2020-01-01 18:31 | ED.SKABFB ---
HPI - Skin/Abscess/Foreign Bdy General Chief complaint: Skin/Abscess/Foreign Body Stated complaint: F/U on fungal infection Time Seen by Provider: 01/01/20 18:05 Source: patient Mode of arrival: Ambulatory Limitations: no limitations History of Present Illness HPI narrative: 69-year-old male former smoker with history of hypertension and type 2 diabetes returns at the request of prior emergency provider for evaluation of skin infection right groin, scrotum and buttocks. Patient denies any fever, chills, nausea or vomiting. He has no systemic complaints and states that though he is no better he has no worse. The pain is sort of tingly and superficial. He has been given antibiotics and antifungals. Primary care provider is Dr. Tania BREWER complaint: rash Onset (ago): day(s) Tetanus up to date: yes Location: buttocks, genitals and RLE Severity: moderate Quality: burning and aching Pain Consistency: constant Relieving factors: none Exacerbating factors: none Associated symptoms: denies other symptoms Treatments prior to arrival: antibiotic Related Data Home Medications Medication Instructions Recorded Confirmed ascorbic acid (vitamin C) 500 mg 500 mg PO DAILY 12/21/19 12/28/19 capsule magnesium 200 mg tablet 200 mg PO DAILY 12/21/19 12/28/19 omega-3 fatty acids 1,000 mg 1,000 mg PO DAILY 12/21/19 12/28/19 capsule vitamin B complex 1 tab PO DAILY 12/21/19 12/28/19 Previous Rx's Medication Instructions Recorded ketoconazole 2 % shampoo 1 applictn TOP 2XW #120 ml 06/12/19 gabapentin 600 mg tablet 600 mg PO .COMPLEX #450 tab MDD 5 10/09/19 canagliflozin 100 mg tablet 100 mg PO DAILY #90 tab 10/11/19 Contour Test Strips #100 each 12/25/19 cephalexin 500 mg PO QID #40 cap 12/28/19 clindamycin HCl 300 mg PO QID #40 cap 12/31/19 itraconazole 200 mg PO DAILY #14 tab 12/31/19 Allergies Allergy/AdvReac Type Severity Reaction Status Date / Time latex [LATEX] Allergy Mild SKIN Verified 12/28/19 08:23 IRRITATION Sulfa (Sulfonamide Allergy Mild BLISTER Verified 12/28/19 08:23 Antibiotics) [SULFA (SULFONAMIDE ANTIBIOTICS)] amoxicillin [AMOXICILLIN] AdvReac Severe NAUSEA/VOMI Verified 12/28/19 08:23 TING clavulanic acid AdvReac Severe AUGMENTIN/V Verified 12/28/19 08:23 [CLAVULANIC ACID] OMITING Penicillins [PENICILLINS] AdvReac Severe NAUSEA/VOMI Verified 12/28/19 08:23 TING ciprofloxacin [CIPROFLOXACIN] AdvReac Intermediate MADE PT Verified 12/28/19 08:23 FEEL RUMMY/NAUSEA erythromycin base AdvReac Intermediate SKIN Verified 12/28/19 08:23 [ERYTHROMYCIN BASE] CRAWLING Review of Systems Constitutional Constitutional: Denies chills, Denies fatigue, Denies fever(s), Denies frequent falls, Denies lethargy and Denies weakness Eyes Eyes: Denies change in vision, Denies eye discharge, Denies irritation and Denies loss of vision ENT Ears, Nose, Mouth, and Throat: Denies change in voice, Denies dizziness, Denies neck pain, Denies sore throat and Denies throat swelling Cardiovascular Cardiovascular: Denies chest pain, Denies irregular heart rhythm, Denies lightheadedness, Denies palpitations, Denies dyspnea, Denies dyspnea on exertion and Denies orthopnea Respiratory Respiratory: Denies cough, Denies dyspnea, Denies dyspnea on exertion and Denies wheezing Gastrointestinal Gastrointestinal: Denies abdominal pain, Denies change in bowel habits, Denies diarrhea, Denies nausea and Denies vomiting Genitourinary Genitourinary: Denies hematuria, Denies flank pain, Denies urinary incontinence and Denies urinary urgency Musculoskeletal Musculoskeletal: Denies back pain, Denies muscle weakness, Denies neck pain, Denies numbness and Denies tingling Integumentary/Breasts Skin/Breast: Denies pruritus, Reports erythema, Denies rash, Reports skin pain, Reports skin swelling and Denies wounds Neurologic Neurologic: Denies behavioral changes, Denies confusion, Denies dizziness, Denies frequent falls, Denies loss of vision, Denies numbness, Denies tingling and Denies weakness Psychiatric Psychiatric: Denies anxiety, Denies behavioral changes, Denies confusion, Denies depression, Denies homicidal ideation and Denies suicidal ideation Endocrine Endocrine: Denies fatigue, Denies flushing and Denies palpitations Hematologic/Lymphatic Hematologic/Lymphatic: Denies easy bruising Allergic/Immunologic Allergic/Immunologic: Denies urticaria, Denies throat swelling and Denies wheezing Patient History Medical History 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) Anxiety (Chronic) Back pain (Acute) Benign prostatic hyperplasia (Chronic 01/02/15) BPH (benign prostatic hyperplasia) (Chronic) Controlled type 2 diabetes mellitus without complication (Chronic 04/30/16) COPD (chronic obstructive pulmonary disease) (Acute) Cramps of lower extremity (Chronic 01/02/15) Degenerative arthritis of lumbar spine (Chronic) Degenerative disc disease (Chronic) Essential hypertension (Chronic) GERD (gastroesophageal reflux disease) (Chronic) Inflamed internal hemorrhoid (Chronic 02/2018) Left sided sciatica (Chronic) Lumbar disc herniation with radiculopathy (Chronic) Osteoarthritis of lower back (Chronic 09/19/14) Peripheral neuropathy (Acute) Pneumonia (Acute) Prepatellar bursitis of right knee (Chronic) Spinal stenosis (Acute) Tear of rotator cuff (Chronic 09/19/14) Surgical History H/O colonoscopy (Resolved 07/08/15) H/O sinus surgery (Resolved 2003) History of elbow surgery (Resolved) History of sebaceous cyst (Resolved 2000) Hx of hand surgery (Acute ~2004) Hx of inguinal hernia surgery (Resolved 1996) Hx of microdiscectomy (Acute 07/01/18) Status post epidural steroid injection (Acute) Status post laminectomy (Resolved) Family History Father [place] (myocardial infarction) Grandmother Diabetes mellitus Mother Lymphoma Grandfather Colon cancer Sister Bladder cancer Social History marital status: (11/01/18) household members: none Smoking Status: Former smoker alcohol intake: current Smoking Status: Former smoker alcohol intake frequency: 0-2 drinks per day Alcohol type: beer Substance Use Type: does not use Exam Narrative Exam Narrative: GENERAL: [69] year old patient appears stated age. Well-nourished, well-developed patient, in mild distress. HEAD: Atraumatic. Normocephalic. EYES: Pupils equal round and reactive. Extraocular motions intact. No scleral icterus. No injection or drainage. ENT: Nose without bleeding, purulent drainage. Throat without erythema, tonsillar hypertrophy or exudate. Airway patent. NECK: Trachea midline. Non tender CARDIOVASCULAR: Regular rate and rhythm without murmurs, gallops, or rubs. RESPIRATORY: Clear to auscultation. Breath sounds equal bilaterally. No wheezes, rales, or rhonchi. GASTROINTESTINAL: Abdomen soft, non-tender, nondistended. EXTREMITIES: No edema or joint tenderness. BACK: Nontender without deformity or crepitance. No flank tenderness. NEURO: AOx3. SKIN: No rash or erythema of visible areas Initial Vital Signs Initial Vital Signs: Vital Signs Temperature 98.2 F 01/01/20 18:10 Pulse Rate 66 01/01/20 18:10 Respiratory Rate 16 01/01/20 18:10 Blood Pressure 155/95 H 01/01/20 18:10 Pulse Oximetry 99 01/01/20 18:10 Course Orders Ordered: ED Orders 01/01/20 18:46 US scrotum Stat Vital Signs Vital signs: Vital Signs - 8 hr 01/01/20 18:10 Temperature 98.2 F Pulse Rate 66 Respiratory Rate 16 Blood Pressure 155/95 H Pulse Oximetry 99 MDM - Skin/Abscess/Foreign Bdy Lab Data Labs: Urine Dip Bedside Urine Glucose 1000 mg/dl Bedside Urine Bilirubin - Negative Bedside Urine Ketone - Negative Urine Specific [place] 1.025 Bedside Urine Occult Blood - Negative Bedside Urine pH 5.0 Bedside Urine Protein - Negative Bedside Urine Urobilinogen - Negative Bedside Urine Nitrite - Negative Bedside Urine Leukocytes - Negative Esterase MDM Narrative Medical decision making narrative: Patient with painful rash shows leveling of symptoms. No systemic findings or complaints. Call to PCP (Dr. Marin) whom will see him in the office tomorrow. US suggests possible mild epididymitis, however urine is clear, patient already on Keflex. Return precautions given, questions answered to his apparent satisfaction Discharge Plan Departure Patient Disposition: Home Clinical Impression: Fungal infection Cellulitis Qualifiers: Site of cellulitis: extremity Site of cellulitis of extremity: lower extremity Laterality: right Qualified Code(s): L03.115 - Cellulitis of right lower limb Discharge Date/Time: 01/01/20 21:39 Instructions: Yeast Infection-Skin Activity Restrictions/Additional Instructions: *You have been diagnosed with [Berenice infection and scrotal cellulitis] *What to do: *Take medications as directed * call Dr. Marin's office tomorrow morning, I called him this evening and he expects to follow-up with you in the next day or 2 *Return to ER if you should have any new, worsening or concerning symptoms Prescriptions: No Action ascorbic acid (vitamin C) 500 mg capsule 500 mg PO DAILY RF: 0 omega-3 fatty acids [Fish Oil Concentrate] 1,000 mg capsule 1,000 mg PO DAILY RF: 0 vitamin B complex [B Complex-Vitamin B12] Tablet 1 tab PO DAILY RF: 0 magnesium 200 mg tablet 200 mg PO DAILY RF: 0 ketoconazole 2 % shampoo 1 applictn TOP 2XW Qty: 120 RF: 1 gabapentin 600 mg tablet 600 mg PO .COMPLEX MDD 5 Qty: 450 RF: 3 Invokana 100 mg tablet 100 mg PO DAILY Qty: 90 RF: 3 (DME) Contour Test Strips 0 .Route .MEDSUPPLY Qty: 100 RF: 0 cephalexin 500 mg capsule 500 mg PO QID Qty: 40 RF: 0 itraconazole 200 mg tablet 200 mg PO DAILY Qty: 14 RF: 0 clindamycin HCl 300 mg capsule 300 mg PO QID Qty: 40 RF: 0 Referrals: Cas Marin MD [Primary Care Provider] -
--- NOTE | 2020-01-01 18:46 | DI.US.S_ITS ---
PROCEDURE: US SCROTUM INDICATIONS: PAIN TECHNIQUE: Real-time scanning was performed of the scrotum and testicles, with image documentation. Color and pulse Doppler interrogation was performed of both testicles. COMPARISON: [facility], , US SCROTUM, 08/15/2018, 13:29. FINDINGS: Right: Testicle is normal in size at 4.5 x 2.5 x 2.8 cm, and homogenous in echotexture. Epididymis is normal in overall size and morphology. No hydrocele or varicoceles. Overlying scrotal skin is normal in thickness. Left: Testicle is normal in size at 4.0 x 2.0 cm, and homogeneous in echotexture. Epididymis is slightly prominent although no definite abnormal hyperemia. Left hydrocele. No varicoceles. Overlying scrotal skin is thickened. Doppler: Color and pulse Doppler demonstrate normal and symmetric arterial flow in both testicles. IMPRESSION: Mild prominence of the left epididymis although no definite hyperemia nonetheless recommended correlation to urinalysis to exclude acute epididymitis Small left hydrocele Left scrotal skin thickening. Dictated by: Tae Sotelo M.D. on 01/01/2020 at 20:35 Approved by: Tae Sotelo M.D. on 01/01/2020 at 20:37
== END 2020-01-01 21:39 | disposition home or self-care (01) ==
PROVIDERS: Emergency Provider Emergency Medicine; PCP Family Medicine
DX: B35.6 Tinea cruris (principal); L03.115 Cellulitis of right lower limb; I10 Essential (primary) hypertension; E11.9 Type 2 diabetes mellitus without complications
CPT/HCPCS: 76870; 81003; 99283

== ENCOUNTER → 2020-02-13 08:04 | Outpatient (CLI) | payer MEDICARE, OTHER, SELFPAY ==
[2019-02-01 17:49] VITALS: BMI 31.0
[2020-02-13 09:22] LABS: Add Manual Diff / Slide Review NO; Basophils Absolute Auto 100 /uL (0-100); Basophils Percent Auto 1.3 % (0-2); Eosinophils Absolute Auto 100 /uL (0-450); Eosinophils Percent Auto 0.9 % (2-4); Hematocrit 50.6 % (41-53); Hemoglobin 17.3 g/dL (13.5-17.5); Lymphocytes Absolute Auto 1400 /uL (1100-4500); Lymphocytes Percent Auto 22.4 % (25-40); Mean Corpuscular HGB Conc 34.1 % (30-36); Mean Corpuscular Hemoglobin 29.8 PG (26-34); Mean Corpuscular Volume 87.3 fL (80-100); Monocytes Absolute Auto 500 /uL (0-900); Monocytes Percent Auto 7.4 % (3-14); Neutrophils Absolute Auto 4200 /uL (1500-7000); Platelet Count 177 X10^3/uL (150-400); Red Cell Distribution Width 14.3 % (11.6-14.8); White Blood Cell Count 6.2 X10^3/uL (4.5-11.0)
[2020-02-13 09:38] LABS: Hemoglobin A1C% w Est Avg Glu 6.5 % (4.0-6.0)
[2020-02-13 10:18] LABS: Alanine Aminotransferase 51 IU/L (<50); Albumin 4.6 g/dL (3.5-5.0); Albumin Globulin Ratio 1.4 (1.0-2.8); Alkaline Phosphatase 69 U/L (38-126); Aspartate Aminotransferase 44 IU/L (17-59); BUN Creatinine Ratio 27.1 (6-22); Bilirubin Total 0.5 mg/dL (0.2-1.3); Blood Urea Nitrogen 26 mg/dL (9-20); Calcium 10.1 mg/dL (8.4-10.2); Carbon Dioxide 23 mmol/L (22-32); Chloride 104 mmol/L (98-107); Cholesterol 160 mg/dL (140-199); Estimated Glomerular Filt Rate > 60.0 mL/min (>60); Globulin 3.2 g/dL (1.7-4.1); Glucose 124 mg/dL (80-110); HDL Cholesterol 42 mg/dL (40-60); HEMOLYSIS < 15 (0-50); LDL Cholesterol Calculated 94 mg/dL (<100); Sodium 139 mmol/L (137-145); Total Protein 7.8 g/dL (6.3-8.2); Triglycerides 120 mg/dL (35-150)
[2020-02-13 10:32] LABS: Thyroid Stimulating Hormone 1.28 uIU/mL (0.47-4.68)
[2020-02-13 10:38] LABS: Prostate Specific Antigen Scrn 1.62 ng/mL (0.1-4.0)
[2020-02-13 10:40] LABS: Testosterone 346 ng/dL (71.8-623)
== END ==
PROVIDERS: PCP Family Medicine; Referring Provider Family Medicine; Visit Provider Family Medicine
DX: Z00.00 Encounter for general adult medical examination without abnormal findings (principal); E11.9 Type 2 diabetes mellitus without complications; I10 Essential (primary) hypertension; Z12.5 Encounter for screening for malignant neoplasm of prostate; Z13.6 Encounter for screening for cardiovascular disorders; R53.83 Other fatigue
CPT/HCPCS: 36415; 80053; 80061; 83036; 84403; 84443; 85025; G0103

== ENCOUNTER → 2020-06-05 06:34 | Outpatient (CLI) | payer MEDICARE, OTHER, SELFPAY ==
[2019-02-01 17:49] VITALS: BMI 31.0
--- NOTE | 2020-06-05 | DI.MRI.S_ITS ---
PROCEDURE: MR LUMBAR SPINE WO/W CON INDICATIONS: Spinal stenosis, lumbar region with neurogenic cla TECHNIQUE: Noncontrast sagittal T1 spin echo and T2 fast spin echo, sagittal STIR, axial T1 and T2 fast spin echo through the lumbar spine. In cases with scoliosis, additional coronal T2 fast spin echo may be performed. After the administration of contrast, sagittal and axial T1 spin echo with fat saturation through the lumbar spine. COMPARISON: [facility], MR, MR LUMBAR SPINE WO CON, 11/24/2019, 13:35. [facility] [place], CR, XR LUMBAR SPINE FLEXION EXTENSION, 06/14/2017, 9:18. [facility], CT, CT LUMBAR SPINE WO CON, 05/24/2018, 8:39. [facility], MR, MR LUMBAR SPINE WO/W CON, 05/24/2018, 10:55. FINDINGS: Image quality: Degraded by metallic artifact. Alignment and curvature: 5 lumbar type vertebral bodies are present by plain film. Loss of normal lumbar lordosis is present. Mild grade 1 retrolisthesis of L2 on L3. Mild grade 1 anterolisthesis of L5 on S1. Marrow: Marrow is of normal overall signal. No acute vertebral body compression fractures. No suspicious marrow enhancement. Posterior fusion of L3-L5. Mild reactive signal within the endplates adjacent to the L1-L2, L2-L3, and L5-S1 intervertebral discs. Spinal cord: Conus medullaris terminates at the lower L1 level. Visualized spinal cord demonstrates normal signal, without suspicious enhancement. Paraspinous soft tissues: No paravertebral masses or abnormal enhancement. L1-L2: Moderate disc height loss and desiccation. Mild diffuse disc bulge. Mild facet and ligamentum flavum hypertrophy. Mild epidural lipomatosis. Increased, moderate canal stenosis. Mild left greater than right foraminal stenosis is unchanged. L2-L3: Moderate disc height loss and desiccation. Moderate diffuse disc bulge with superimposed small left paracentral protrusion. Mild facet and ligamentum flavum hypertrophy. Mild epidural lipomatosis. Severe canal stenosis. Mild bilateral foraminal stenosis. No change. L3-L4: Status post fusion. Interbody device. Mild residual disc bulge with superimposed left paracentral protrusion. Mild bilateral facet hypertrophy. Mild canal stenosis. Moderate left and mild right foraminal stenosis. No change. L4-L5: Status post fusion. Interbody device placement. Mild residual disc osteophyte complex with superimposed right far lateral protrusion/osteophyte. Mild bilateral facet hypertrophy. Mild canal stenosis. Moderate bilateral foraminal stenosis. No change. L5-S1: Mild disc height loss and desiccation. Mild diffuse disc bulge. Mild facet and ligamentum flavum hypertrophy. Moderate canal stenosis. Severe bilateral foraminal stenosis with bilateral L5 nerve root compression. IMPRESSION: 1. Multilevel degenerative disc and facet disease, as well as ligamentum flavum hypertrophy and epidural lipomatosis. 2. Postsurgical sequelae at L3-L5. 3. Multilevel canal stenosis, worst at L2-L3, where there is severe canal stenosis. Moderate canal stenosis at L1-L2 and L5-S1. 4. Multilevel foraminal stenoses, worst at L5-S1 where there is associated L5 nerve root compression. Recommend correlation with clinical symptoms to ascertain relevance of this finding. Dictated by: Rodríguez Robles M.D. on 06/05/2020 at 9:43 Approved by: Rodríguez Robles M.D. on 06/05/2020 at 9:48
== END ==
PROVIDERS: PCP Family Medicine; Referring Provider Family Medicine; Visit Provider Physical Medicine & Rehabilitation Pain Medicine
DX: M48.062 Spinal stenosis, lumbar region with neurogenic claudication (principal); M48.07 Spinal stenosis, lumbosacral region; M51.36 Other intervertebral disc degeneration, lumbar region; M51.37 Other intervertebral disc degeneration, lumbosacral region; E88.2 Lipomatosis, not elsewhere classified; Z98.1 Arthrodesis status
CPT/HCPCS: 72158

== ENCOUNTER → 2020-06-19 07:24 | Outpatient (CLI) | payer MEDICARE, OTHER, SELFPAY ==
[2019-02-01 17:49] VITALS: BMI 31.0
[2020-06-19 09:16] LABS: BUN Creatinine Ratio 18.7 (6-22); Blood Urea Nitrogen 17 mg/dL (9-20); Estimated Glomerular Filt Rate > 60.0 mL/min (>60)
== END ==
PROVIDERS: PCP Family Medicine; Referring Provider Physical Medicine & Rehabilitation Pain Medicine; Visit Provider Physical Medicine & Rehabilitation Pain Medicine
DX: M48.062 Spinal stenosis, lumbar region with neurogenic claudication (principal); M54.16 Radiculopathy, lumbar region
CPT/HCPCS: 36415; 82565; 84520

== ENCOUNTER → 2020-06-20 06:32 | Outpatient (CLI) | payer MEDICARE, OTHER, SELFPAY ==
[2019-02-01 17:49] VITALS: BMI 31.0
--- NOTE | 2020-06-20 | DI.MRI.S_ITS ---
PROCEDURE: MR PELIS WO/W CON INDICATIONS: Spinal stenosis, lumbar region without neurogenic janis TECHNIQUE: Noncontrast coronal T1 spin echo and STIR, sagittal T1 spin echo with fat saturation and STIR, axial T1 spin echo and T2 fast spin echo with fat saturation. After the administration of contrast, axial/sagittal/coronal T1 spin echo with fat saturation through the pelvis. COMPARISON: [facility], MR, MR LUMBAR SPINE WO/W CON, 06/05/2020, 7:06. FINDINGS: Image quality: There is magnetic susceptibility artifact from patient's surgical hardware in the lower lumbar spine limiting evaluation. Bones: The visualized bone marrow demonstrates normal overall signal. No definite fractures or bone contusions with evaluation of the lower lumbar spine limited due to magnetic susceptibility artifact. There is mild loss of disc height posteriorly at L5-S1 with a small broad-based disc bulge. There is associated ligamentum flavum hypertrophy. Findings contribute to moderate spinal canal narrowing as seen on the recent MRI of the lumbar spine. Neural foraminal narrowing at this level is not well evaluated on the current study. There is a small sclerotic focus within the right femoral neck which is nonspecific but likely represents a bone island. Soft tissues: No soft tissue masses are in the pelvis. Specifically, no discrete mass or definite abnormal enhancement demonstrated along the course of the lumbar plexus nerve roots with evaluation limited at the L5-S1 level and above by magnetic susceptibility artifact. The scanned muscles demonstrate normal overall bulk and internal signal. The visualized pelvis demonstrates no intraperitoneal free fluid. Visualized bowel loops are normal in caliber. Bladder demonstrates normal wall thickness. There is mild enlargement of the prostate. IMPRESSION: 1. Moderate spinal canal narrowing redemonstrated at L5-S1. 2. No discrete mass or definite abnormal enhancement demonstrated along the course of the lumbar plexus nerve roots, with evaluation limited in the lower lumbar spine by magnetic susceptibility artifact. Dictated by: Ismael Doll M.D. on 06/20/2020 at 12:15 Approved by: Ismael Doll M.D. on 06/20/2020 at 12:30
== END ==
PROVIDERS: PCP Family Medicine; Referring Provider Family Medicine; Visit Provider Physical Medicine & Rehabilitation Pain Medicine
DX: M48.061 Spinal stenosis, lumbar region without neurogenic claudication (principal); M48.07 Spinal stenosis, lumbosacral region
CPT/HCPCS: 72197; A9579

== ENCOUNTER 2020-11-14 16:20 | Emergency (ER) | payer MEDICARE, OTHER, SELFPAY ==
[2019-02-01 17:49] VITALS: BMI 31.0
[2020-11-14 16:30] VITALS: BP 172/74; PULSE 73; RESP 14; TEMP 36.6; O2SAT 96; BMI 30.9
--- NOTE | 2020-11-14 16:34 | ED.GENADULT ---
HPI - General Adult General Chief complaint: Skin/Abscess/Foreign Body Stated complaint: Rt knee, thinks infection Time Seen by Provider: 11/14/20 16:33 Source: patient Mode of arrival: Ambulatory Limitations: no limitations History of Present Illness HPI narrative: 69-year-old male who states that he does quite a bit of work when his knees and has a callus and a buildup on his right knee that is not new started noticing pain and redness around the spot. He contacted his primary doctor's office today who called in a prescription for antibiotics today. He has yet to pick this up however he was told to come to the emergency department for an evaluation to see whether not there was an abscess that needed drained. Related Data Home Medications Medication Instructions Recorded Confirmed ascorbic acid (vitamin C) 500 mg 500 mg PO DAILY 12/21/19 10/22/20 capsule magnesium 200 mg tablet 200 mg PO DAILY 12/21/19 10/22/20 omega-3 fatty acids 1,000 mg 1,000 mg PO DAILY 12/21/19 10/22/20 capsule vitamin B complex 1 tab PO DAILY 12/21/19 10/22/20 Previous Rx's Medication Instructions Recorded metformin 500 mg tablet 500 mg PO DAILY #90 tab 01/06/17 gabapentin 600 mg tablet 600 mg PO .COMPLEX #450 tab MDD 5 10/09/19 canagliflozin 100 mg tablet 100 mg PO DAILY #90 tab 10/11/19 Contour Test Strips #100 each 12/25/19 tamsulosin 0.4 mg capsule 0.4 mg PO DAILY #90 cap 03/20/20 hydrocortisone 2.5 % topical cream 1 applictn TOP BID PRN #60 gram 05/13/20 enalapril maleate 10 mg tablet 10 mg PO DAILY #90 tab 06/28/20 ketoconazole 2 % shampoo 1 applic TOP 2XW #120 ml 09/09/20 clobetasol 0.05 % scalp solution 1 applic TOP BID 7 Days #25 ml 09/16/20 hydrocodone 5 mg-acetaminophen 325 1 tab PO Q6H #30 tab 09/20/20 mg tablet doxycycline hyclate 100 mg tablet 100 mg PO BID #20 tab 11/14/20 Allergies Allergy/AdvReac Type Severity Reaction Status Date / Time latex [LATEX] Allergy Mild SKIN Verified 10/22/20 08:27 IRRITATION Sulfa (Sulfonamide Allergy Mild BLISTER Verified 10/22/20 08:27 Antibiotics) [SULFA (SULFONAMIDE ANTIBIOTICS)] amoxicillin [AMOXICILLIN] AdvReac Severe NAUSEA/VOMI Verified 10/22/20 08:27 TING clavulanic acid AdvReac Severe AUGMENTIN/V Verified 10/22/20 08:27 [CLAVULANIC ACID] OMITING Penicillins [PENICILLINS] AdvReac Severe NAUSEA/VOMI Verified 10/22/20 08:27 TING ciprofloxacin [CIPROFLOXACIN] AdvReac Intermediate MADE PT Verified 10/22/20 08:27 FEEL RUMMY/NAUSEA erythromycin base AdvReac Intermediate SKIN Verified 10/22/20 08:27 [ERYTHROMYCIN BASE] CRAWLING Review of Systems Constitutional Constitutional: Denies fever(s) ENT Ears, Nose, Mouth, and Throat: Denies vertigo and Denies dizziness Musculoskeletal Musculoskeletal: Denies arthralgias and Denies myalgias Integumentary/Breasts Comments: Redness and callus buildup right knee Neurologic Neurologic: Denies vertigo and Denies dizziness Hematologic/Lymphatic On Anticoagulants: No Allergic/Immunologic Allergic/Immunologic: Denies urticaria Patient History Medical History Anal fissure (02/2018) Anal fissure Anxiety Back pain Benign prostatic hyperplasia (01/02/15) BPH (benign prostatic hyperplasia) Controlled type 2 diabetes mellitus without complication (04/30/16) COPD (chronic obstructive pulmonary disease) Cramps of lower extremity (01/02/15) Degenerative arthritis of lumbar spine Degenerative disc disease Essential hypertension GERD (gastroesophageal reflux disease) Inflamed internal hemorrhoid (02/2018) Left sided sciatica Lumbar disc herniation with radiculopathy Osteoarthritis of lower back (09/19/14) Peripheral neuropathy Pneumonia Prepatellar bursitis of right knee Spinal stenosis Tear of rotator cuff (09/19/14) Surgical History H/O colonoscopy (07/08/15) H/O sinus surgery (2003) History of elbow surgery History of sebaceous cyst (2000) Hx of hand surgery (~2004) Hx of inguinal hernia surgery (1996) Hx of microdiscectomy (07/01/18) Status post epidural steroid injection Status post laminectomy Family History Father [place] (myocardial infarction) Grandmother Diabetes mellitus Mother Lymphoma Grandfather Colon cancer Sister Bladder cancer Social History marital status: (11/01/18) household members: none Smoking Status: Former smoker alcohol intake: current Smoking Status: Former smoker alcohol intake frequency: 0-2 drinks per day Alcohol type: beer Substance Use Type: does not use Exam Initial Vital Signs Initial Vital Signs: Vital Signs Temperature 97.8 F 11/14/20 16:30 Pulse Rate 73 11/14/20 16:30 Respiratory Rate 14 11/14/20 16:30 Blood Pressure 172/74 H 11/14/20 16:30 Pulse Oximetry 96 11/14/20 16:30 Const General: cooperative and comfortable Limitations: mental status not altered HENMT Head: normal to inspection and normocephalic Skin Other: Patient does have a buildup of a callus of approximately 2 cm on the anterior portion of his right knee. There is surrounding erythema with tenderness lateral to this. No active drainage. Extrem Other: Full range of motion of right knee and right ankle Psych Appearance: grossly normal and well kempt Procedures Abscess I/D I&D #1: Site: other (Right knee) Side (if applicable): right Local Anesthetic: lidocaine 1% and with bicarb Amount of anesthesia used (mL): 4 Technique: needle aspiration Amount of fluid expressed (mL): 0 Packing used?: none Course Orders Ordered: Discontinued Medications Lidocaine/Sodium Bicarbonate (Lido 1%/Sod Bicarb 8.4% (10ml) 10 Ml Syringe) 10 ml INJ NOW ONE Stop: 11/14/20 16:34 Last Admin: 11/14/20 17:25 Dose: 10 ml Documented by: SINCERE Vital Signs Vital signs: Vital Signs - 8 hr 11/14/20 16:30 11/14/20 17:00 11/14/20 17:16 Temperature 97.8 F Pulse Rate 73 78 Respiratory Rate 14 Blood Pressure 172/74 H 167/77 H Pulse Oximetry 96 96 Medical Decision Making MDM Narrative Medical decision making narrative: Bedside ultrasound does show what looks like a fluid pocket over the area of callus however a needle aspiration did not return any blood or fluid or purulent material. He already has a prescription for antibiotics written for him by his primary provider waiting for him at the pharmacy. Patient is not septic. Not toxic appearing. Low suspicion for septic joint given his physical exam. For discharge home with instructions to take the antibiotics prescribed by his primary doctor. He was given return precautions. Expressed understanding agreement. Discharge Plan Departure Patient Disposition: Home Clinical Impression: Cellulitis Instructions: DI for Cellulitis -- Adult Activity Restrictions/Additional Instructions: I recommend that you take the antibiotics that were prescribed to you by your primary doctor as directed. Return to the emergency department for any new or worsening symptoms. Prescriptions: No Action ascorbic acid (vitamin C) 500 mg capsule 500 mg PO DAILY RF: 0 omega-3 fatty acids [Fish Oil Concentrate] 1,000 mg capsule 1,000 mg PO DAILY RF: 0 vitamin B complex [B Complex-Vitamin B12] Tablet 1 tab PO DAILY RF: 0 magnesium 200 mg tablet 200 mg PO DAILY RF: 0 hydrocodone-acetaminophen 5-325 mg tablet 1 tab PO Q6H Qty: 30 RF: 0 gabapentin 600 mg tablet 600 mg PO .COMPLEX MDD 5 Qty: 450 RF: 3 Invokana 100 mg tablet 100 mg PO DAILY Qty: 90 RF: 3 (DME) Contour Test Strips 0 .Route .MEDSUPPLY Qty: 100 RF: 0 tamsulosin [Flomax] 0.4 mg capsule 0.4 mg PO DAILY Qty: 90 RF: 3 metformin [Glucophage] 500 mg tablet 500 mg PO DAILY Qty: 90 RF: 3 hydrocortisone 2.5 % cream 1 applictn TOP BID PRN (Reason: Hemorrhoids) Qty: 60 RF: 3 enalapril maleate 10 mg tablet 10 mg PO DAILY Qty: 90 RF: 2 ketoconazole 2 % shampoo 1 applic TOP 2XW Qty: 120 RF: 1 clobetasol 0.05 % solution 1 applic TOP BID 7 Days Qty: 25 RF: 1 doxycycline hyclate 100 mg tablet 100 mg PO BID Qty: 20 RF: 0 Referrals: Cas Marin MD [Primary Care Provider] -
[2020-11-14 17:00] VITALS: BP 167/77
[2020-11-14 17:16] VITALS: PULSE 78; O2SAT 96
[2020-11-14] MEDS: LIDO 1%/SOD BICARB 8.4% (10ML) 10 ML SYRINGE INJ (17:25)
== END 2020-11-14 17:28 | disposition home or self-care (01) ==
PROVIDERS: Emergency Provider Emergency Medicine; PCP Family Medicine
DX: L03.115 Cellulitis of right lower limb (principal)
CPT/HCPCS: 10060; 99281; 99283

== ENCOUNTER → 2020-12-05 18:59 | Outpatient (CLI) | payer MEDICARE, OTHER, SELFPAY ==
[2019-02-01 17:49] VITALS: BMI 31.0
--- NOTE | 2020-12-05 19:00 | DI.MRI.S_ITS ---
PROCEDURE: MR KNEE LT WO CON INDICATIONS: Miniscus tear TECHNIQUE: Noncontrast sagittal PD fast spin echo and T2 fast spin echo with fat saturation, sagittal 3-D FLASH with fat saturation; coronal T1 spin echo and PD fast spin echo with fat saturation, and axial PD fast spin echo with fat saturation through the knee. COMPARISON: [facility], MR, MR KNEE RT WO CON, 12/05/2020, 19:09. [facility], CR, XR KNEE LT 3V, 12/28/2019, 8:22. FINDINGS: Image quality: Excellent. Menisci: There is worse on oblique tearing of the body of the medial meniscus extending to the inner third of the tibial articular surface. Mild intrasubstance degeneration is seen in the lateral meniscus without a discrete tear. Cruciate ligaments: The anterior and posterior cruciate ligaments appear intact. Medial structures: The medial collateral ligament appears intact. The semimembranosus tendon insertions and meniscocapsular junction appear intact. Visualized portions of the pes anserinus tendons appear normal. No abnormal bursal fluid. Lateral structures: The lateral collateral ligament, long and short heads of the biceps femoris tendon appear intact. The popliteus tendon appears intact. No signs of posterolateral corner injury. Iliotibial band appears normal. Anterior structures: There is mild proximal patellar tendinosis. Osseous irregularity of the tibial tubercle is compatible with a history of Ru-Schlatter syndrome. No femoral trochlear dysplasia or ventral trochlear prominence. No edema in the infrapatellar fat pad. Bones and cartilage: No bone marrow contusions or fractures. Mild partial-thickness cartilage thinning is seen in the weight-bearing portion of the medial femorotibial compartment. The lateral compartment articular cartilages are intact. Mild partial-thickness cartilage irregularity is seen in the median ridge and lateral facet of the patella and in the trochlear groove. Joint space: There is a small joint effusion. A moderate medial popliteal cyst is seen with a lobular component extending proximally into the popliteal fossa overall measuring up to 9.3 cm in superior-inferior extent. There is mild subcutaneous prepatellar soft tissue edema. IMPRESSION: 1. Horizontal oblique tearing of the body of the medial meniscus extending to the inner third of the tibial articular surface. 2. Mild intrasubstance degeneration in the body of the lateral meniscus without a discrete tear. 3. 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 4. Mild proximal patellar tendinosis. 5. Small joint effusion. A moderate medial popliteal cyst is seen with a lobulated component extending proximally into the popliteal fossa. Dictated by: Mau Coleman M.D. on 12/06/2020 at 8:28 Approved by: Mau Coleman M.D. on 12/06/2020 at 8:36
--- NOTE | 2020-12-05 19:00 | DI.MRI.S_ITS ---
PROCEDURE: MR KNEE RT WO CON INDICATIONS: Miniscus tear TECHNIQUE: Noncontrast sagittal PD fast spin echo and T2 fast spin echo with fat saturation, sagittal 3-D FLASH with fat saturation; coronal T1 spin echo and PD fast spin echo with fat saturation, and axial PD fast spin echo with fat saturation through the knee. COMPARISON: [facility], CR, XR KNEE RT 3V, 12/28/2019, 8:22. FINDINGS: Image quality: Excellent. Menisci: There is horizontal oblique tearing of the posterior horn and body of the medial meniscus extending to the inner third of the tibial articular surface. There is mild free edge fraying in the posterior horn of the lateral meniscus without a significant tear. Cruciate ligaments: The anterior and posterior cruciate ligaments appear intact. Medial structures: The medial collateral ligament appears intact. The semimembranosus tendon insertions and meniscocapsular junction appear intact. Visualized portions of the pes anserinus tendons appear normal. No abnormal bursal fluid. Lateral structures: The lateral collateral ligament, long and short heads of the biceps femoris tendon appear intact. The popliteus tendon appears intact. No signs of posterolateral corner injury. Iliotibial band appears normal. Anterior structures: There is mild proximal patellar tendinosis. Irregularity of the tibial tubercle is likely secondary to a history of Ru-Schlatter syndrome. The distal quadriceps tendon is intact. No femoral trochlear dysplasia or ventral trochlear prominence. No edema in the infrapatellar fat pad. Bones and cartilage: No bone marrow contusions or fractures. There is partial-thickness cartilage thinning in the weight-bearing portion of the medial femorotibial compartment. The lateral compartment articular cartilages are maintained. There is deep cartilage fissuring in the medial patellar facet in the lateral patellar facet with mild partial-thickness cartilage loss in the median ridge. Joint space: There is a small joint effusion. There is no significant medial popliteal cyst. Nonspecific subcutaneous prepatellar soft tissue edema is noted. IMPRESSION: 1. Horizontal oblique tearing of the posterior horn and body of the medial meniscus extending to the inner third of the tibial articular surface. 2. Mild free edge fraying of the posterior horn of the lateral meniscus without a significant tear. 3. Grade 2 chondromalacia is seen in the medial and anterior compartments. 4. Mild proximal patellar tendinosis. 5. Small joint effusion. Dictated by: Mau Coleman M.D. on 12/06/2020 at 8:15 Approved by: Mau Coleman M.D. on 12/06/2020 at 8:27
== END ==
PROVIDERS: PCP Family Medicine; Referring Provider Family Medicine; Visit Provider Orthopaedic Surgery Foot and Ankle Surgery
DX: S83.241A Other tear of medial meniscus, current injury, right knee, initial encounter (principal); S83.242A Other tear of medial meniscus, current injury, left knee, initial encounter; M94.262 Chondromalacia, left knee; M94.261 Chondromalacia, right knee; M25.462 Effusion, left knee; M25.461 Effusion, right knee; M71.22 Synovial cyst of popliteal space [Baker], left knee; X58.XXXA Exposure to other specified factors, initial encounter
CPT/HCPCS: 73721

== ENCOUNTER → 2021-01-24 07:10 | Outpatient (CLI) | payer MEDICARE, OTHER, SELFPAY ==
[2019-02-01 17:49] VITALS: BMI 31.0
[2021-01-24 08:09] LABS: Hemoglobin A1C% w Est Avg Glu 6.8 % (4.0-6.0)
[2021-01-24 08:11] LABS: Add Manual Diff / Slide Review NO; Basophils Absolute Auto 100 /uL (0-100); Eosinophils Absolute Auto 100 /uL (0-450); Eosinophils Percent Auto 2.7 % (2-4); Lymphocytes Absolute Auto 1200 /uL (1100-4500); Lymphocytes Percent Auto 22.9 % (25-40); Mean Corpuscular HGB Conc 32.5 % (30-36); Mean Corpuscular Hemoglobin 28.6 PG (26-34); Mean Corpuscular Volume 88.1 fL (80-100); Monocytes Absolute Auto 400 /uL (0-900); Monocytes Percent Auto 7.8 % (3-14); Neutrophils Absolute Auto 3500 /uL (1500-7000); Neutrophils Percent Auto 65.6 % (50-75); Platelet Count 160 X10^3/uL (150-400); Red Blood Cell Count 5.22 X10^6/uL (4.5-5.9); Red Cell Distribution Width 14.3 % (11.6-14.8); White Blood Cell Count 5.3 X10^3/uL (4.5-11.0)
[2021-01-24 08:15] LABS: Alanine Aminotransferase 47 IU/L (<50); Albumin Globulin Ratio 1.4 (1.0-2.8); Alkaline Phosphatase 57 U/L (38-126); Aspartate Aminotransferase 40 IU/L (17-59); BUN Creatinine Ratio 19.8 (6-22); Bilirubin Total 0.4 mg/dL (0.2-1.3); Blood Urea Nitrogen 22 mg/dL (9-20); Calcium 9.4 mg/dL (8.4-10.2); Carbon Dioxide 29 mmol/L (22-32); Chloride 105 mmol/L (98-107); Cholesterol 158 mg/dL (140-199); Estimated Glomerular Filt Rate > 60.0 mL/min (>60); Globulin 2.8 g/dL (1.7-4.1); Glucose 133 mg/dL (80-110); HDL Cholesterol 36 mg/dL (40-60); HEMOLYSIS < 15 (0-50); LDL Cholesterol Calculated 93 mg/dL (<100); Potassium 4.2 mmol/L (3.4-5.1); Sodium 142 mmol/L (137-145); Total Protein 6.8 g/dL (6.3-8.2); Triglycerides 145 mg/dL (35-150)
[2021-01-24 08:58] LABS: TSH w/ Reflex to FT4 2.07 uIU/mL (0.47-4.68)
[2021-01-24 09:55] LABS: Creatinine Urine Random 126.6 mg/dL
[2021-01-24 10:00] LABS: Microalbumi Creatinin Ratio Ur 97.9 ug/mg CR (<30); Microalbumin Urine Random 12.4 mg/dL (0-1.6)
== END ==
PROVIDERS: PCP Family Medicine; Referring Provider Family Medicine; Visit Provider Family Medicine
DX: E11.9 Type 2 diabetes mellitus without complications (principal); I10 Essential (primary) hypertension; E78.5 Hyperlipidemia, unspecified; N40.0 Benign prostatic hyperplasia without lower urinary tract symptoms
CPT/HCPCS: 36415; 80053; 80061; 82043; 82570; 83036; 84443; 85025

== ENCOUNTER → 2021-02-07 07:03 | Outpatient (CLI) | payer MEDICARE, OTHER, SELFPAY ==
[2019-02-01 17:49] VITALS: BMI 31.0
--- NOTE | 2021-02-07 07:06 | DI.RAD.S_ITS ---
PROCEDURE: FL ARTHROGRAM WRIST RT INDICATIONS: Other dislocation of right wrist and hand, initial COMPARISON: None. TECHNIQUE: After informed consent had been obtained, the wrist was examined fluoroscopically, and a site chosen for injection of the radiocarpal compartment from a dorsal approach. Skin was prepped and draped in a sterile fashion and 1% lidocaine infiltrated from the skin down to the articular surface. A hypodermic needle was then introduced into the articular space and a modest amount of contrast medium was instilled confirming intra-articular needle tip placement. This was followed by approximately 4 mL of a dilute gadolinium solution. Needle was removed and dressing was applied. The patient experienced no complications throughout the procedure and left the fluoroscopic suite in no apparent distress. FINDINGS: A single fluoroscopic spot image demonstrates intra-articular location to injected iodinated contrast. IMPRESSION: Successful fluoroscopic-guided administration of dilute Gadolinium solution for wrist MR arthrogram. Dictated by: Maco Peralta M.D. on 02/07/2021 at 8:55 Approved by: Maco Peralta M.D. on 02/07/2021 at 8:56
--- NOTE | 2021-02-07 07:07 | DI.MRI.S_ITS ---
PROCEDURE: MR WRIST RT W CON INDICATIONS: Other dislocation of right wrist and hand, initial TECHNIQUE: After the administration of 3-4 mL of dilute intra-articular Gadolinium contrast into the radiocarpal compartment, coronal T1 spin echo with fat saturation and T2 fast spin echo with fat saturation, axial T1 spin echo and T2 fast spin echo with fat saturation, sagittal T1 spin echo with and without fat saturation through the wrist. COMPARISON: [facility], MR, WRIST WITH CONTRAST, 07/27/2017, 10:02. FINDINGS: Image quality: Excellent. Bones and cartilage: The carpal bones are normally aligned. No bone marrow contusions or fractures. No evidence for avascular necrosis. Carpal ligaments: The scapholunate and lunotriquetral ligaments appear intact, without gadolinium extravasation into the mid-carpal compartment. The radioscaphocapitate and radiolunotriquetral ligaments appear intact. The arcuate ligament and short radiolunate ligament also appear normal. The dorsal intercarpal and radiotriquetral ligaments appear intact. On sagittal images, the pisohamate ligament appears intact. Triangular fibrocartilage complex: Ill-defined macerated appearance of the radial attachment and part of the central disc of the TFCC. There is trace gadolinium extravasation into the distal radioulnar joint. There is ulnocarpal joint degeneration with subchondral marrow edema and near full-thickness cartilage loss at the proximal surface of the lunate. The ulnar attachments appear grossly intact. The adjacent meniscal homolog appears normal. The ulnar collateral ligament appears intact. The extensor carpi ulnaris tendon is normal in location and morphology. Tendons and soft tissues: The carpal tunnel structures appear normal, including the median nerve. The ulnar nerve appears normal within Guyon's canal. All six extensor tendon compartments demonstrate normal morphology, without pathologic tendon sheath fluid. No soft tissue ganglion cysts. IMPRESSION: Ill-defined tear of the TFCC primarily involving the radial attachment and part of the central disc. Associated trace gadolinium leakage into the distal radioulnar joint suggests a full-thickness pinpoint perforation. Proximal lunate and distal ulna chondromalacia. Dictated by: Tae Sotelo M.D. on 02/07/2021 at 11:54 Approved by: Tae Sotelo M.D. on 02/07/2021 at 12:01
== END ==
PROVIDERS: PCP Family Medicine; Referring Provider Orthopaedic Surgery; Visit Provider Orthopaedic Surgery
DX: S63.591A Other specified sprain of right wrist, initial encounter (principal); M94.231 Chondromalacia, right wrist; I10 Essential (primary) hypertension; E11.9 Type 2 diabetes mellitus without complications; S63.094A Other dislocation of right wrist and hand, initial encounter; Z12.5 Encounter for screening for malignant neoplasm of prostate; X58.XXXA Exposure to other specified factors, initial encounter
CPT/HCPCS: 25246; 73222; 77002

== ENCOUNTER 2021-03-13 17:55 | Emergency (ER) | payer MEDICARE, OTHER, SELFPAY ==
[2019-02-01 17:49] VITALS: BMI 31.0
[2021-03-13 18:03] VITALS: BP 204/98; PULSE 75; RESP 16; TEMP 36.8; O2SAT 97; BMI 31.9
[2021-03-13 21:27] VITALS: BP 197/88; PULSE 63; RESP 20; O2SAT 100
[2021-03-13 21:51] VITALS: BP 189/96; PULSE 65; RESP 18; O2SAT 99
[2021-03-13] MEDS: DOXYCYCLINE HYCLATE 100 MG TABLET PO (21:58)
--- NOTE | 2021-03-13 22:07 | ED.LOWEXIN ---
HPI - Extremity Injury (Lower) General Chief Complaint: Extremity Injury, Lower Stated Complaint: Infection On Rt Knee Time Seen by Provider: 03/13/21 21:40 History of Present Illness HPI Narrative: Patient here for recurrence right knee cellulitis also has recurrence bursitis on the right knee. This is not new. 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 Patient's blood pressure noted. He has not followed up with his primary care Dr. Cas Marin for this. I spoke with Dr. Wilson on-call primary, he states can give enalapril 10 mg twice a day. A give patient dose here before departure. Patient has had this doxycycline for cellulitis this past November with good effect. Related Data Home Medications Medication Instructions Recorded Confirmed ascorbic acid (vitamin C) 500 mg 500 mg PO DAILY 12/21/19 01/21/21 capsule magnesium 200 mg tablet 200 mg PO DAILY 12/21/19 01/21/21 omega-3 fatty acids 1,000 mg 1,000 mg PO DAILY 12/21/19 01/21/21 capsule (Fish Oil Concentrate) vitamin B complex (B 1 tab PO DAILY 12/21/19 01/21/21 Complex-Vitamin B12) Previous Rx's Medication Instructions Recorded metformin 500 mg tablet 500 mg PO DAILY #90 tab 01/06/17 (Glucophage) canagliflozin 100 mg tablet 100 mg PO DAILY #90 tab 10/11/19 (Invokana) Contour Test Strips #100 each 12/25/19 tamsulosin 0.4 mg capsule (Flomax) 0.4 mg PO DAILY #90 cap 03/20/20 enalapril maleate 10 mg tablet 10 mg PO DAILY #90 tab 06/28/20 clobetasol 0.05 % scalp solution 1 applic TOP BID 7 Days #25 ml 09/16/20 gabapentin 600 mg tablet 600 mg PO .COMPLEX #450 tab MDD 5 01/27/21 doxycycline monohydrate 100 mg 100 mg PO BID #20 cap 03/13/21 capsule Allergies Allergy/AdvReac Type Severity Reaction Status Date / Time latex [LATEX] Allergy Mild SKIN Verified 01/21/21 08:41 IRRITATION Sulfa (Sulfonamide Allergy Mild BLISTER Verified 01/21/21 08:41 Antibiotics) [SULFA (SULFONAMIDE ANTIBIOTICS)] amoxicillin [AMOXICILLIN] AdvReac Severe NAUSEA/VOMI Verified 01/21/21 08:41 TING clavulanic acid AdvReac Severe AUGMENTIN/V Verified 01/21/21 08:41 [CLAVULANIC ACID] OMITING Penicillins [PENICILLINS] AdvReac Severe NAUSEA/VOMI Verified 01/21/21 08:41 TING ciprofloxacin [CIPROFLOXACIN] AdvReac Intermediate MADE PT Verified 01/21/21 08:41 FEEL RUMMY/NAUSEA erythromycin base AdvReac Intermediate SKIN Verified 01/21/21 08:41 [ERYTHROMYCIN BASE] CRAWLING Review of Systems Review of Systems Narrative: GENERAL: Denies chills, fatigue, malaise, fever, sweats. HEENT: Denies sinus pain, ear pain, sore throat RESPIRATORY: Denies dyspnea, cough CARDIOVASCULAR: Denies chest pain, palpitations GASTROINTESTINAL: Denies nausea, vomiting, abdominal pain : Denies dysuria, frequency, hematuria MUSCULOSKELETAL: denies muscle or bony pain SKIN: Denies rash, skin lesions, complains of cellulitis NEUROLOGIC: Denies weakness, numbness ROS Unobtainable: All systems reviewed & are unremarkable except as noted in HPI and below Patient History Medical History Anal fissure (02/2018) Anal fissure Anxiety Back pain Benign prostatic hyperplasia (01/02/15) BPH (benign prostatic hyperplasia) Controlled type 2 diabetes mellitus without complication (04/30/16) COPD (chronic obstructive pulmonary disease) Cramps of lower extremity (01/02/15) Degenerative arthritis of lumbar spine Degenerative disc disease Essential hypertension GERD (gastroesophageal reflux disease) Inflamed internal hemorrhoid (02/2018) Left sided sciatica Lumbar disc herniation with radiculopathy Osteoarthritis of lower back (09/19/14) Peripheral neuropathy Pneumonia Prepatellar bursitis of right knee Spinal stenosis Tear of rotator cuff (09/19/14) Surgical History H/O colonoscopy (07/08/15) H/O sinus surgery (2003) History of elbow surgery History of sebaceous cyst (2000) Hx of hand surgery (~2004) Hx of inguinal hernia surgery (1996) Hx of microdiscectomy (07/01/18) Status post epidural steroid injection Status post laminectomy Family History Father [place] (myocardial infarction) Grandmother Diabetes mellitus Mother Lymphoma Grandfather Colon cancer Sister Bladder cancer Social History marital status: (11/01/18) household members: none Smoking Status: Former smoker alcohol intake: current Smoking Status: Former smoker alcohol intake frequency: 0-2 drinks per day Alcohol type: beer Substance Use Type: does not use Exam Narrative Exam Narrative: GENERAL: in no distress, not toxic not dyspneic HEAD: Normocephalic. EYES: Pupils equal round No scleral icterus. No injection no discharge ENT: Mucous membranes moist. NECK: Trachea midline. CARDIOVASCULAR: Regular rate and rhythm without murmurs RESPIRATORY: Clear to auscultation. Breath sounds equal bilaterally. No wheezes, rales, or rhonchi. GASTROINTESTINAL: Abdomen soft, non-tender EXTREMITIES: No gross deformities. Examination right knee. There is a bursa sac/cyst at the infrapatellar right knee. Lateral to this is crescent shaped small amount of cellulitis. No drainage. BACK: No flank tenderness. NEURO: AOx4. SKIN: Warm and dry PSYCH: Not anxious, is cooperative Initial Vital Signs Initial Vital Signs: Vital Signs Temperature 98.2 F 03/13/21 18:03 Pulse Rate 75 03/13/21 18:03 Respiratory Rate 16 03/13/21 18:03 Blood Pressure 204/98 H 03/13/21 18:03 Pulse Oximetry 97 03/13/21 18:03 Course Course Course Narrative: Blood pressure noted. Will try enalapril or here Orders Ordered: Discontinued Medications Doxycycline Hyclate (Doxycycline Hyclate 100 Mg Tablet) 100 mg PO NOW ONE Stop: 03/13/21 21:51 Last Admin: 03/13/21 21:58 Dose: 100 mg Documented by: GRETA Enalapril Maleate (Enalapril 5 Mg Tablet) 10 mg PO NOW ONE Stop: 03/13/21 22:06 Last Admin: 03/13/21 22:19 Dose: 10 mg Documented by: GRETA Reevaluation(s) Reevaluation #1: Patient does not want wait any further after blood pressure medication given here. Antibiotic as well. He desires discharge home now. He does not want to have this recheck his blood pressure prior to departure Time: 22:22 Vital Signs Vital signs: Vital Signs - 8 hr 03/13/21 18:03 03/13/21 21:27 03/13/21 21:51 Temperature 98.2 F Pulse Rate 75 63 65 Respiratory Rate 16 20 18 Blood Pressure 204/98 H 197/88 H 189/96 H Pulse Oximetry 97 100 99 03/13/21 22:19 Temperature Pulse Rate 70 Respiratory Rate Blood Pressure 201/96 H Pulse Oximetry MDM - Extremity Injury (Lower) Differential Diagnosis Differential diagnosis: Likely other (Cellulitis/hypertension) MDM Narrative Medical decision making narrative: Patient has seen Dr. Escalante with Orthopedics for left knee problems. Informed patient can follow up with her regarding the bursitis on the right knee. Patient to take enalapril twice a day and follow-up with Dr. Marin. Patient does not want await for recheck of blood pressure. Denies any headache chest pain dyspnea denies any back pain or abdominal pain Discharge Plan Departure Patient Disposition: Home Clinical Impression: Prepatellar bursitis of right knee Cellulitis of lower extremity Qualifiers: Laterality: right Qualified Code(s): L03.115 - Cellulitis of right lower limb Instructions: DI for Cellulitis -- Adult Activity Restrictions/Additional Instructions: See family doctor next week for recheck of your blood pressure. See family doctor next week for recheck of cellulitis of your knee. Be sure to take your enalapril twice a day. Return if worse or for any questions or concerns Antibiotic prescription has been sent to your [facility] in [facility]. Prescriptions: New doxycycline monohydrate 100 mg capsule 100 mg PO BID Qty: 20 RF: 0 No Action ascorbic acid (vitamin C) 500 mg capsule 500 mg PO DAILY RF: 0 omega-3 fatty acids [Fish Oil Concentrate] 1,000 mg capsule 1,000 mg PO DAILY RF: 0 vitamin B complex [B Complex-Vitamin B12] Tablet 1 tab PO DAILY RF: 0 magnesium 200 mg tablet 200 mg PO DAILY RF: 0 Invokana 100 mg tablet 100 mg PO DAILY Qty: 90 RF: 3 (DME) Contour Test Strips 0 .Route .MEDSUPPLY Qty: 100 RF: 0 tamsulosin [Flomax] 0.4 mg capsule 0.4 mg PO DAILY Qty: 90 RF: 3 metformin [Glucophage] 500 mg tablet 500 mg PO DAILY Qty: 90 RF: 3 enalapril maleate 10 mg tablet 10 mg PO DAILY Qty: 90 RF: 2 clobetasol 0.05 % solution 1 applic TOP BID 7 Days Qty: 25 RF: 1 gabapentin 600 mg tablet 600 mg PO .COMPLEX MDD 5 Qty: 450 RF: 3 Referrals: Cas Marin MD [Primary Care Provider] -
[2021-03-13 22:19] VITALS: BP 201/96; PULSE 70
[2021-03-13] MEDS: ENALAPRIL 5 MG TABLET 10 MG PO (22:19)
== END 2021-03-13 22:25 | disposition home or self-care (01) ==
PROVIDERS: Emergency Provider Emergency Medicine; PCP Family Medicine
DX: M70.41 Prepatellar bursitis, right knee (principal); L03.115 Cellulitis of right lower limb
CPT/HCPCS: 99283

== ENCOUNTER 2021-05-11 08:16 | Emergency (ER) | payer MEDICARE, OTHER, SELFPAY ==
[2019-02-01 17:49] VITALS: BMI 31.0
[2021-05-11 08:44] VITALS: BP 205/84; PULSE 60; RESP 18; TEMP 36.5; O2SAT 98; BMI 30.4
--- NOTE | 2021-05-11 08:50 | DI.RAD.S_ITS ---
PROCEDURE: XR CHEST 1V INDICATIONS: cough TECHNIQUE: One view of the chest was acquired. COMPARISON: [facility], CR, XR CHEST 2V, 11/22/2018, 14:32. FINDINGS: Surgical changes and devices: None. Lungs and pleura: Lungs are clear. No pleural effusions or pneumothorax. Mediastinum: Mediastinal contours appear normal. Heart size is normal. Bones and chest wall: No suspicious bony lesions. Overlying soft tissues appear unremarkable. IMPRESSION: No acute cardiopulmonary abnormality. Dictated by: Hector Gutierrez M.D. on 05/11/2021 at 9:01 Approved by: Hector Gutierrez M.D. on 05/11/2021 at 9:02
--- NOTE | 2021-05-11 08:52 | ED.SOB ---
HPI - SOB/Dyspnea General Chief Complaint: Shortness of Breath/Dyspnea Stated Complaint: Covid symptoms Time Seen by Provider: 05/11/21 08:35 Source: patient Mode of arrival: Ambulatory Limitations: no limitations History of Present Illness HPI Narrative: Patient is a 70-year-old male who has a history of diabetes, chronic back pain with neuropathy, hypertension, COPD presenting today with upper respiratory like symptoms. 1 week ago he had about 2 days of diarrhea which resolved. However the last few days he has had body aches chest discomfort cough sometimes productive cough. He is fully vaccinated for COVID-19 but feels these are the symptoms. He denies any chest pain or palpitations. He occasionally is short of breath but not now. He states that he took his blood pressure medication this morning but is noted to have quite an elevated blood pressure persistently above 200. Patient states that he is scheduled for back surgery May 28 he has waited 2 years for this. Related Data Home Medications Medication Instructions Recorded Confirmed ascorbic acid (vitamin C) 500 mg 500 mg PO DAILY 12/21/19 03/25/21 capsule magnesium 200 mg tablet 200 mg PO DAILY 12/21/19 03/25/21 omega-3 fatty acids 1,000 mg 1,000 mg PO DAILY 12/21/19 03/25/21 capsule (Fish Oil Concentrate) vitamin B complex (B 1 tab PO DAILY 12/21/19 03/25/21 Complex-Vitamin B12) enalapril maleate 10 mg tablet 10 mg PO BID tab 03/25/21 Previous Rx's Medication Instructions Recorded metformin 500 mg tablet 500 mg PO DAILY #90 tab 01/06/17 (Glucophage) canagliflozin 100 mg tablet 100 mg PO DAILY #90 tab 10/11/19 (Invokana) Contour Test Strips #100 each 12/25/19 tamsulosin 0.4 mg capsule (Flomax) 0.4 mg PO DAILY #90 cap 03/20/20 clobetasol 0.05 % scalp solution 1 applic TOP BID 7 Days #25 ml 09/16/20 gabapentin 600 mg tablet 600 mg PO .COMPLEX #450 tab MDD 5 01/27/21 hydrocodone 5 mg-acetaminophen 325 1 tab PO BID #30 tab 03/25/21 mg tablet Allergies Allergy/AdvReac Type Severity Reaction Status Date / Time latex [LATEX] Allergy Mild SKIN Verified 01/21/21 08:41 IRRITATION Sulfa (Sulfonamide Allergy Mild BLISTER Verified 01/21/21 08:41 Antibiotics) [SULFA (SULFONAMIDE ANTIBIOTICS)] amoxicillin [AMOXICILLIN] AdvReac Severe NAUSEA/VOMI Verified 01/21/21 08:41 TING clavulanic acid AdvReac Severe AUGMENTIN/V Verified 01/21/21 08:41 [CLAVULANIC ACID] OMITING Penicillins [PENICILLINS] AdvReac Severe NAUSEA/VOMI Verified 01/21/21 08:41 TING ciprofloxacin [CIPROFLOXACIN] AdvReac Intermediate MADE PT Verified 01/21/21 08:41 FEEL RUMMY/NAUSEA erythromycin base AdvReac Intermediate SKIN Verified 01/21/21 08:41 [ERYTHROMYCIN BASE] CRAWLING Review of Systems Review of Systems ROS Unobtainable: All systems reviewed & are unremarkable except as noted in HPI and below Constitutional Constitutional: Reports body ache(s), Reports chills, Reports fatigue and Reports fever(s) (unknown) Eyes Eyes: Denies blurry vision ENT Ears, Nose, Mouth, and Throat: Denies dizziness and Denies sinus pressure Cardiovascular Cardiovascular: Denies chest pain at rest, Denies syncope, Denies irregular heart rhythm, Reports dyspnea on exertion and Denies orthopnea Respiratory Respiratory: Reports as per HPI, Reports chest congestion, Reports cough, Denies hemoptysis, Denies excessive phlegm production and Reports dyspnea on exertion Gastrointestinal Gastrointestinal: Denies abdominal pain, Reports diarrhea (now resolved) and Denies nausea Genitourinary Genitourinary: Denies urinary frequency Musculoskeletal Musculoskeletal: Reports as per HPI, Reports back pain and Reports numbness Integumentary/Breasts Skin/Breast: Denies rash Neurologic Neurologic: Reports as per HPI, Denies dizziness, Denies syncope and Reports numbness Endocrine Endocrine: Reports fatigue Patient History Medical History (Updated 05/11/21 @ 10:18 by Lisa Canales DO) Anal fissure (02/2018) Anal fissure Anxiety Back pain Benign prostatic hyperplasia (01/02/15) BPH (benign prostatic hyperplasia) Cellulitis of lower extremity Controlled type 2 diabetes mellitus without complication (04/30/16) COPD (chronic obstructive pulmonary disease) Cramps of lower extremity (01/02/15) Degenerative arthritis of lumbar spine Degenerative disc disease Essential hypertension GERD (gastroesophageal reflux disease) Inflamed internal hemorrhoid (02/2018) Left sided sciatica Lumbar disc herniation with radiculopathy Osteoarthritis of lower back (09/19/14) Peripheral neuropathy Pneumonia Prepatellar bursitis of right knee Spinal stenosis Tear of rotator cuff (09/19/14) Surgical History H/O colonoscopy (07/08/15) H/O sinus surgery (2003) History of elbow surgery History of sebaceous cyst (2000) Hx of hand surgery (~2004) Hx of inguinal hernia surgery (1996) Hx of microdiscectomy (07/01/18) Status post epidural steroid injection Status post laminectomy Family History Father [place] (myocardial infarction) Grandmother Diabetes mellitus Mother Lymphoma Grandfather Colon cancer Sister Bladder cancer Social History marital status: (11/01/18) household members: none Smoking Status: Former smoker alcohol intake: current Smoking Status: Former smoker alcohol intake frequency: 0-2 drinks per day Alcohol type: beer Substance Use Type: does not use Exam Initial Vital Signs Initial Vital Signs: Vital Signs Temperature 97.7 F 05/11/21 08:44 Pulse Rate 60 05/11/21 08:44 Respiratory Rate 18 05/11/21 08:44 Blood Pressure 205/84 H 05/11/21 08:44 Pulse Oximetry 98 05/11/21 08:44 GENERAL: Alert 70-year-old male appears to not feel well HEENT: Head atraumatic,EOMI, pupils reactive, face symmetric, moist mucous membranes CARDIOVASCULAR: Regular rate and rhythm without murmurs, rubs or gallops. RESPIRATORY: Breath sounds equal bilaterally, no wheezes rales or rhonchi. ABDOMEN: Soft, nontender. Normoactive bowel sounds all 4 quadrants. No guarding or rebound. EXTREMITIES: Normal range of motion, no clubbing or edema. Neurovascularly intact NEUROLOGICAL: Alert and oriented x4.Normal gait and speech. SKIN: Warm, dry, no laceration, no petechiae, no rashes or lesions. Course Orders Ordered: ED Orders 05/11/21 08:35 COVID19 -Nasal swab/Pre-Proc Stat 05/11/21 08:50 XR chest 1V Stat EKG-12 Lead Stat 05/11/21 09:21 Complete Blood Count AUTO DIFF Stat Comprehensive Metabolic Panel Stat Lactate (Lactic Acid) Stat Lipase Stat NT-proBNP (BNP-Adult 18+) Stat Procalcitonin Stat Troponin & CK Cardiac Panel Stat 05/11/21 09:42 D Dimer Stat Vital Signs Vital signs: Vital Signs - 8 hr 05/11/21 08:44 05/11/21 10:30 Temperature 97.7 F Pulse Rate 60 60 Respiratory Rate 18 18 Blood Pressure 205/84 H 175/75 H Pulse Oximetry 98 95 MDM - SOB/Dyspnea Lab Data Result diagrams: 05/11/21 09:21 05/11/21 09:21 Labs: Lab Results 05/11/21 05/11/21 05/11/21 Range/Units 08:35 09:21 09:21 WBC 6.7 (4.5-11.0) X10^3/uL RBC 4.97 (4.5-5.9) X10^6/uL Hgb 14.2 (13.5-17.5) g/dL Hct 43.2 (41-53) % MCV 86.8 (80-100) fL MCH 28.6 (26-34) PG MCHC 33.0 (30-36) % RDW 13.8 (11.6-14.8) % Plt Count 157 (150-400) X10^3/uL Neut % (Auto) 76.6 H (50-75) % Lymph % (Auto) 14.1 L (25-40) % Tate % (Auto) 6.2 (3-14) % Eos % (Auto) 2.2 (2-4) % Baso % (Auto) 0.9 (0-2) % Neut # (Auto) 5200 (7491-6256) /uL Lymph # (Auto) 900 L (9312-8812) /uL Tate # (Auto) 400 (0-900) /uL Eos # (Auto) 100 (0-450) /uL Baso # (Auto) 100 (0-100) /uL D-Dimer (<230) ng/mL Sodium 137 (137-145) mmol/L Potassium 4.4 (3.4-5.1) mmol/L Chloride 105 (98-107) mmol/L Carbon Dioxide 27 (22-32) mmol/L BUN 15 (9-20) mg/dL Creatinine 0.82 (0.66-1.25) mg/dL Estimated GFR > 60.0 (>60) mL/min BUN/Creatinine Ratio 18.3 (6-22) Glucose 130 H (80-110) mg/dL Lactate (0.7-2.1) mmol/L Calcium 8.9 (8.4-10.2) mg/dL Total Bilirubin 0.5 (0.2-1.3) mg/dL AST 31 (17-59) IU/L ALT 28 (<50) IU/L Alkaline Phosphatase 62 (38-126) U/L Total Creatine Kinase 138 (55-170) U/L CK-MB (CK-2) 1.88 (<2.37) ng/mL CK-MB (CK-2) Rel Index 1.4 L (1.5-5.0) % Troponin I < 0.012 (0.01-0.034) ng/mL NT-Pro-B Natriuret Pep (<125) pg/mL Total Protein 6.8 (6.3-8.2) g/dL Albumin 3.9 (3.5-5.0) g/dL Globulin 2.9 (1.7-4.1) g/dL Albumin/Globulin Ratio 1.3 (1.0-2.8) Lipase 18 L (23-300) U/L Procalcitonin 0.06 (<0.5) ng/mL SARS-CoV-2 (PCR) Negative (Negative) 05/11/21 05/11/21 05/11/21 Range/Units 09:21 09:21 09:42 WBC (4.5-11.0) X10^3/uL RBC (4.5-5.9) X10^6/uL Hgb (13.5-17.5) g/dL Hct (41-53) % MCV (80-100) fL MCH (26-34) PG MCHC (30-36) % RDW (11.6-14.8) % Plt Count (150-400) X10^3/uL Neut % (Auto) (50-75) % Lymph % (Auto) (25-40) % Tate % (Auto) (3-14) % Eos % (Auto) (2-4) % Baso % (Auto) (0-2) % Neut # (Auto) (6724-4781) /uL Lymph # (Auto) (3147-4002) /uL Tate # (Auto) (0-900) /uL Eos # (Auto) (0-450) /uL Baso # (Auto) (0-100) /uL D-Dimer < 200 (<230) ng/mL Sodium (137-145) mmol/L Potassium (3.4-5.1) mmol/L Chloride (98-107) mmol/L Carbon Dioxide (22-32) mmol/L BUN (9-20) mg/dL Creatinine (0.66-1.25) mg/dL Estimated GFR (>60) mL/min BUN/Creatinine Ratio (6-22) Glucose (80-110) mg/dL Lactate 1.3 (0.7-2.1) mmol/L Calcium (8.4-10.2) mg/dL Total Bilirubin (0.2-1.3) mg/dL AST (17-59) IU/L ALT (<50) IU/L Alkaline Phosphatase (38-126) U/L Total Creatine Kinase (55-170) U/L CK-MB (CK-2) (<2.37) ng/mL CK-MB (CK-2) Rel Index (1.5-5.0) % Troponin I (0.01-0.034) ng/mL NT-Pro-B Natriuret Pep 178 H (<125) pg/mL Total Protein (6.3-8.2) g/dL Albumin (3.5-5.0) g/dL Globulin (1.7-4.1) g/dL Albumin/Globulin Ratio (1.0-2.8) Lipase (23-300) U/L Procalcitonin (<0.5) ng/mL SARS-CoV-2 (PCR) (Negative) Imaging Data Chest x-ray: Radiologist's Impression: PROCEDURE: XR CHEST 1V INDICATIONS: cough TECHNIQUE: One view of the chest was acquired. COMPARISON: [facility], CR, XR CHEST 2V, 11/22/2018, 14:32. FINDINGS: Surgical changes and devices: None. Lungs and pleura: Lungs are clear. No pleural effusions or pneumothorax. Mediastinum: Mediastinal contours appear normal. Heart size is normal. Bones and chest wall: No suspicious bony lesions. Overlying soft tissues appear unremarkable. IMPRESSION: No acute cardiopulmonary abnormality. Dictated by: Hector Gutierrez M.D. on 05/11/2021 at 9:01 ECG Data Interpretation: Normal sinus rhythm rate 56 NM interval 158 QRS [address] changes MDM Narrative Medical decision making narrative: Patient is fully vaccinated But symptoms are concerning however his a negative COVID test today. Nonetheless I recommend he have a repeat COVID test in the next 2-3 days to be sure. He is scheduled for back surgery in a couple of weeks. Blood work and vitals are overall reassuring. Not requiring oxygen at this time. Recommend close outpatient follow up. Discharge Plan Departure Patient Disposition: Home Clinical Impression: Upper respiratory infection Qualifiers: URI type: unspecified viral URI Qualified Code(s): J06.9 - Acute upper respiratory infection, unspecified Instructions: DI for Viral Upper Respiratory Infection -- Adult Activity Restrictions/Additional Instructions: *You have been diagnosed with upper respiratory infection *What to do: At this time your COVID test is negative there is no evidence of pneumonia. You likely have a different respiratory virus. However I do recommend that he have a repeat COVID test in the next 2-3 days at 1 of the participating facilities. Please monitor your blood pressure was noted to be elevated. Discussed this with your primary care provider your blood pressure medication need to be adjusted *Continue to take medications as directed *Follow up with your primary care provider in 2-3 days *Return to ER if you should have increasing shortness of breath, chest pain or any new, worsening or concerning symptoms Prescriptions: No Action ascorbic acid (vitamin C) 500 mg capsule 500 mg PO DAILY RF: 0 omega-3 fatty acids [Fish Oil Concentrate] 1,000 mg capsule 1,000 mg PO DAILY RF: 0 vitamin B complex [B Complex-Vitamin B12] Tablet 1 tab PO DAILY RF: 0 magnesium 200 mg tablet 200 mg PO DAILY RF: 0 enalapril maleate 10 mg tablet 10 mg PO BID RF: 0 hydrocodone-acetaminophen 5-325 mg tablet 1 tab PO BID Qty: 30 RF: 0 Invokana 100 mg tablet 100 mg PO DAILY Qty: 90 RF: 3 (DME) Contour Test Strips 0 .Route .MEDSUPPLY Qty: 100 RF: 0 tamsulosin [Flomax] 0.4 mg capsule 0.4 mg PO DAILY Qty: 90 RF: 3 metformin [Glucophage] 500 mg tablet 500 mg PO DAILY Qty: 90 RF: 3 clobetasol 0.05 % solution 1 applic TOP BID 7 Days Qty: 25 RF: 1 gabapentin 600 mg tablet 600 mg PO .COMPLEX MDD 5 Qty: 450 RF: 3 Referrals: Cas Marin MD [Primary Care Provider] -
[2021-05-11 08:55] LABS: COVID19 -Nasal RAPID Negative (Negative)
[2021-05-11 09:29] LABS: Add Manual Diff / Slide Review NO; Basophils Absolute Auto 100 /uL (0-100); Basophils Percent Auto 0.9 % (0-2); Eosinophils Absolute Auto 100 /uL (0-450); Eosinophils Percent Auto 2.2 % (2-4); Hematocrit 43.2 % (41-53); Hemoglobin 14.2 g/dL (13.5-17.5); Lymphocytes Absolute Auto 900 /uL (1100-4500); Lymphocytes Percent Auto 14.1 % (25-40); Mean Corpuscular Hemoglobin 28.6 PG (26-34); Mean Corpuscular Volume 86.8 fL (80-100); Monocytes Absolute Auto 400 /uL (0-900); Monocytes Percent Auto 6.2 % (3-14); Neutrophils Absolute Auto 5200 /uL (1500-7000); Neutrophils Percent Auto 76.6 % (50-75); Platelet Count 157 X10^3/uL (150-400); Red Blood Cell Count 4.97 X10^6/uL (4.5-5.9); Red Cell Distribution Width 13.8 % (11.6-14.8); White Blood Cell Count 6.7 X10^3/uL (4.5-11.0)
[2021-05-11 09:40] LABS: Lactate (Lactic Acid) 1.3 mmol/L (0.7-2.1)
[2021-05-11 09:43] LABS: Alanine Aminotransferase 28 IU/L (<50); Albumin 3.9 g/dL (3.5-5.0); Albumin Globulin Ratio 1.3 (1.0-2.8); Alkaline Phosphatase 62 U/L (38-126); Aspartate Aminotransferase 31 IU/L (17-59); BUN Creatinine Ratio 18.3 (6-22); Bilirubin Total 0.5 mg/dL (0.2-1.3); Blood Urea Nitrogen 15 mg/dL (9-20); Calcium 8.9 mg/dL (8.4-10.2); Carbon Dioxide 27 mmol/L (22-32); Chloride 105 mmol/L (98-107); Creatine Kinase 138 U/L (55-170); Estimated Glomerular Filt Rate > 60.0 mL/min (>60); Globulin 2.9 g/dL (1.7-4.1); Glucose 130 mg/dL (80-110); HEMOLYSIS 33 (0-50); Lipase 18 U/L (23-300); Potassium 4.4 mmol/L (3.4-5.1); Sodium 137 mmol/L (137-145); Total Protein 6.8 g/dL (6.3-8.2)
[2021-05-11 09:51] LABS: NT-proBNP (BNP-Adult 18+) 178 pg/mL (<125)
[2021-05-11 09:53] LABS: Troponin I < 0.012 ng/mL (0.01-0.034)
[2021-05-11 09:58] LABS: CKMB % Relative Index 1.4 % (1.5-5.0); Creatine Kinase MB 1.88 ng/mL (<2.37); Procalcitonin 0.06 ng/mL (<0.5)
[2021-05-11 10:02] LABS: D Dimer < 200 ng/mL (<230)
[2021-05-11 10:30] VITALS: BP 175/75; PULSE 60; RESP 18; O2SAT 95
== END 2021-05-11 10:40 | disposition home or self-care (01) ==
PROVIDERS: Emergency Provider Emergency Medicine; PCP Family Medicine
DX: J06.9 Acute upper respiratory infection, unspecified (principal); R05 Cough; Z20.822 Contact with and (suspected) exposure to COVID-19
CPT/HCPCS: 36415; 71045; 80053; 82550; 82553; 83605; 83690; 83880; 84145; 84484; 85025; 85379; 87635; 93005; 99283; 99284; C9803

== ENCOUNTER → 2021-05-26 14:34 | Outpatient (CLI) | payer MEDICARE, OTHER, SELFPAY ==
[2019-02-01 17:49] VITALS: BMI 31.0
[2021-05-26 18:03] LABS: COVID19 -Nasal RAPID Negative (Negative)
== END ==
PROVIDERS: PCP Family Medicine; Referring Provider Nurse Practitioner Family; Visit Provider Nurse Practitioner Family
DX: Z01.812 Encounter for preprocedural laboratory examination (principal); Z20.822 Contact with and (suspected) exposure to COVID-19
CPT/HCPCS: 87635; C9803

== ENCOUNTER → 2021-06-18 08:35 | Outpatient (CLI) | payer MEDICARE, OTHER, SELFPAY ==
[2019-02-01 17:49] VITALS: BMI 31.0
[2021-06-18 12:29] LABS: COVID19 -Nasal RAPID Negative (Negative)
== END ==
PROVIDERS: PCP Family Medicine; Visit Provider Nurse Practitioner Family
DX: Z20.822 Contact with and (suspected) exposure to COVID-19 (principal)
CPT/HCPCS: 87635; C9803

== ENCOUNTER 2021-06-20 10:37 | Inpatient (IN) | payer MEDICARE, OTHER, SELFPAY ==
[2019-02-01 17:49] VITALS: BMI 31.0
[2021-05-15 09:35] VITALS: BMI 31.9
[2021-06-20] VITALS (14 sets, daily range): BP systolic 110–191; BP diastolic 60–104; PULSE 56–83; RESP 8–19; TEMP 36–36.4; O2SAT 90–97; BMI 31.9
[2021-06-20] MEDS: LACTATED RINGERS 1,000 ML 42 ML IV ×2 (11:35→13:27)
--- NOTE | 2021-06-20 11:42 | PM.PREOP ---
Pre-operative Note COVID-19 COVID-19 status: Negative Result date/Date tested (Pos, Neg/Pending): 06/18/21 Interval Note History & Physical reviewed/Exam performed by Physician: Yes Changes to H&P: No
[2021-06-20] MEDS: CEFAZOLIN 1 GM VIAL 2 GM IV (12:45)
--- NOTE | 2021-06-20 13:08 | SUR.OPER ---
Prone on spine table, head in foam head support, padded chest and pelvic supports, gel pad at knees, lower legs supported by pillows; nipples, genitalia and toes free of pressure, arms secured on foam padded arm boards at <90 degrees abduction. Tape over blanket at thigh secured to table. Gel pad between heels.
[2021-06-20] MEDS: BUPIVACAINE LIPOSOME 266 MG/20 ML VIAL INJ (13:15)
[2021-06-20] MEDS: BUPIVACAINE 0.25% (PF) VIAL 30 ML INJ (13:16)
[2021-06-20] MEDS: EPINEPHrine 1 MG/ML 0.15 MG SUBCUT (13:18)
--- NOTE | 2021-06-20 15:00 | DI.RAD.S_ITS ---
PROCEDURE: XR LUMBAR SPINE 2-3V INDICATIONS: L2-L3 TLIF TECHNIQUE: 2 views of the lumbar spine were acquired. COMPARISON: [facility], CR, XR LUMBAR SPINE 2-3V, 02/01/2019, 8:23. FINDINGS: Bones: 2 intraoperative fluoroscopy images demonstrate discectomy and posterior fusion at L2-L5 IMPRESSION: Discectomy and posterior fusion at L2-L5. Dictated by: Gabino Massey M.D. on 06/20/2021 at 15:21 Approved by: Gabino Massey M.D. on 06/20/2021 at 15:25
--- NOTE | 2021-06-20 15:10 | PM.OP.1 ---
Operative Date/Time/Diagnoses Date of procedure: 06/20/21 Time of procedure: 12:00 Pre-op diagnosis: 1. L2-3 spinal stenosis with radiculopathy 2. Hx of L3-5 lumbar fusion with instrumentation 3. L2-3 spondylosis with radiculopathy Post-op diagnosis: same Procedure & Clinicians Procedure: 1. L2-3 posterolateral and posterior interbody fusion 2. L2-3 posterior interbody cage placement 3. L3-5 posterior segmental instrumentation removal 4. L3-4, L4-5 revision laminectomy with exploration of fusion 5. L2-3, L3-4, L4-5 posterior segmental instrumentation with pedicle screw placement 6. L3-4 posterolaterral fusion 7. [place] of bone marrow from iliac crest through a separate incision 8. Utilization of microsurgical technique and operating microscope Same procedure as scheduled: Yes Indications: Patient has been having chronic back pain and worsening lumbar radiculopathy. Patient had prior fusion surgery 2 and half years ago. Patient has been doing well until the last 6 months was progressively worsening leg weakness, leg pain and back pain. Patient failed multiple conservative management with worsening pain weakness and numbness in her lower extremity. Patient has been having difficulty performing activity of daily living. After discussing risks benefits of treatment options, patient elected proceed with surgery. Surgeon: Chiki Avila Programmer Business: Solomon Hebert Click Yes if Unassisted: No Anesthesia Type: General Operative Notes Closure Type: primary Specimen(s): none sent Prosthetic devices, grafts, tissues, transplants, or devices: Globus revolve screws, Rise cage Applied: catheter Estimated Blood Loss (mL): 100 Blood products transfused: none Procedure in detail: Patient was seen in the preoperative area. Risks and benefits of the surgery was discussed with the patient. Informed consent was obtained from the patient and placed in the chart. Surgical site was marked. Patient was taken to the operative room. General anesthesia was administered. Prophylactic antibiotic was given to the patient less than 30 min before the incision was made. Patient was placed into a prone position on the [place] table. Patient's back was then prepped and draped in the sterile fashion. Time-out was performed at this time. Using patient's previous scar incision was made over the L2-3 L3-4 L4-5 interval on the right side. Fascia was incised in line with skin incision. Patient's previously placed hardware over the L3-4 L4-5 level was identified by dissecting down to the level the hardware using a Bovie and a Arauz. The locking caps which was removed using globus screwdriver. The locking ronda was then removed from the tulips of the pedicle screws using a Andres. The pedicle screws were then removed using the screwdriver. The screws were found to have good purchase. The Globus and MARS retractors was then placed into the wound and docked onto the L2 lamina using C-arm guidance. Using microsurgical technique and operating microscope a laminectomy facetectomy was performed by removing the L2 lamina and the L2-3 facet. Patient was found have severe central and neural foramen stenosis which was fully decompressed after the laminectomy facetectomy was completed. The decompression portion of procedure rendered the L2-3 level grossly unstable and require fusion procedure at the same time. Disc space at L2-3 level was identified next. And a total diskectomy was performed at L2-3 level. The endplates were decorticated using a rasp and shaver. The total diskectomy and decortication was performed at L2-3 level in order to to accomplish a L2-3 fusion. The local bone from the laminectomy and facetectomy was saved for local bone grafting. After the total diskectomy and decortication was completed, Globus Trifecta bone graft material was combined with local bone that was harvested earlier. At this time, a separate skin is incision was made over the iliac crest. A Jamshidi needle was inserted into the iliac crest through a separate skin incision. 5 cc of bone marrow aspiration was obtained through the separate skin incision using a Jamshidi needle from the iliac crest. The bone marrow aspiration was combined with local bone and the Trifecta bone grafting material. The bone grafting material was placed into the L2-3 interbody space along with a expandable cage. The cage was expanded to its maximum height using the torque limiting screwdriver. The fusion mass on the left side was exposed by performing a left-sided hemilaminectomy at L3-4 L4-5 level. The hemilaminectomy was performed using the Kerrison rongeur to undercut the lamina as well removing additional epidural scar tissue for purpose of decompressing the epidural space. The fusion mass was explored and was found have visible motion indicating pseudoarthrosis at L3-4 level was solid fusion L4-5 level. Globus MARS retractor was inserted and docked onto the L2-3 L3-4 posterolateral gutter. Using the power drill, posterior-lateral decortication was performed at L2-3 L3-4 level until bleeding cortical bone was identified. The remaining bone grafting material was placed into the L2-3 L3-4 posterior lateral gutter he order to accomplish posterolateral fusion at the L2-3 L3-4 level. Using the double C-arm technique, pedicle screws were placed into the L2-L3 L4 and L5 pedicles on the left side. This was done by placing the Jamshidi needle into the pedicles, then placing the guidewires over the Jamshidi needle, and finally placing the cannulated screws over the guidewires. After the pedicle screws were placed, a titanium rods was locked into the heads of the pedicle screws using locking caps and torque limiting screwdriver. After all the hardware was placed, and confirmed with AP and lateral C-arm imaging, the wound was then irrigated with sterile normal saline and packed with Ray-Hazel gauze for 3 min to accomplish hemostasis. After the gauze was removed the deep fascia was closed with #1 Vicryl suture. The subcutaneous layer was closed with 2-0 Vicryl. The skin was closed with skin della. Patient tolerated the procedure well. There were no complications. Complications: none Post-operative Condition: stable Disposition: PACU Plan for aftercare: Admit to inpatient hospital
[2021-06-20] MEDS: fentaNYL 100 MCG/2 ML INJ IV ×2 (15:52→16:03)
[2021-06-20] MEDS: LORazepam 2 MG/ML INJ 0.25 MG IV (15:53)
[2021-06-20] MEDS: OXYCODONE/ACETAMINOPHEN 5/325 TABLET 1 TAB PO (16:17)
[2021-06-20] MEDS: hydrOXYzine 50 MG/ML INJ 25 MG IM (16:18)
[2021-06-20] MEDS: SODIUM CHLORIDE 0.9% 1,000 ML 100 ML IV (17:33)
[2021-06-20] MEDS: hydrOXYzine pamoate 25 MG CAPSULE PO (20:18)
[2021-06-20] MEDS: MORPHINE 2 MG/ML INJ IV (20:19)
[2021-06-20] MEDS: OXYCODONE IR 5 MG TABLET 10 MG PO (20:44)
[2021-06-20] MEDS: SENNOSIDES 8.6 MG TABLET 17.2 MG PO (20:46)
[2021-06-20] MEDS: ENALAPRIL 5 MG TABLET 10 MG PO (20:46)
[2021-06-20] MEDS: DOCUSATE 100 MG CAPSULE PO (20:50)
[2021-06-20] MEDS: CLINDAMYCIN 900 MG/50 ML PIGGYBACK 50 MG IV (20:52)
[2021-06-20] MEDS: METFORMIN HCL 500 MG TABLET 125 MG PO (21:00)
[2021-06-20] MEDS: GABAPENTIN 600 MG TABLET PO (21:30)
[2021-06-20] MEDS: ACETAMINOPHEN 325 MG TABLET 650 MG PO (21:31)
--- NOTE | 2021-06-20 23:34 | PC.ADMIT ---
[id number] [place] Admission Note: Patient arrived to floor from ER at 18:15. Alert and oriented with delayed speech. NIH- 1. U/A collected and sent to lab. NS running @ 100/hr. Patient shown how to use remote, breaks on bed locked and bed alarm on. The patient,Ryland Quevedo,70 y/o, was given written information regarding hospital policies, unit procedures and contact persons. Patient's smoking status: Former smoker. Vital Signs - 8 hr 06/20/21 15:38 06/20/21 16:06 06/20/21 16:08 Temperature Pulse Rate 74 79 83 Respiratory Rate 9 L 12 10 L Blood Pressure 128/62 171/69 H 176/70 H Pulse Oximetry 95 90 L 97 06/20/21 16:24 06/20/21 16:58 06/20/21 17:40 Temperature 96.8 F L 97 F L Pulse Rate 75 72 68 Respiratory Rate 12 14 19 Blood Pressure 173/74 H 177/96 H 110/63 Pulse Oximetry 96 95 90 L 06/20/21 19:02 06/20/21 20:43 06/20/21 20:46 Temperature 97.3 F L 97.3 F L Pulse Rate 69 63 70 Respiratory Rate 18 18 Blood Pressure 141/67 H 135/62 191/104 H Pulse Oximetry 93 92
[2021-06-21] VITALS (9 sets, daily range): BP systolic 117–165; BP diastolic 51–71; PULSE 60–65; RESP 16–18; TEMP 36.2–37.2; O2SAT 97–99
[2021-06-21] MEDS: OXYCODONE IR 5 MG TABLET 10 MG PO ×6 (00:16→20:37)
[2021-06-21] MEDS: ACETAMINOPHEN 325 MG TABLET 650 MG PO ×2 (03:10→16:12)
[2021-06-21] MEDS: SODIUM CHLORIDE 0.9% 1,000 ML 100 ML IV (04:22)
[2021-06-21] MEDS: CLINDAMYCIN 900 MG/50 ML PIGGYBACK 50 MG IV (04:25)
[2021-06-21] MEDS: GABAPENTIN 600 MG TABLET PO ×4 (05:04→17:57)
[2021-06-21] MEDS: PANTOPRAZOLE DR 20 MG TABLET PO (05:04)
[2021-06-21 06:51] LABS: Hematocrit 40.7 % (41-53); Hemoglobin 13.2 g/dL (13.5-17.5)
[2021-06-21] MEDS: ENALAPRIL 5 MG TABLET 10 MG PO ×2 (08:19→20:39)
[2021-06-21] MEDS: DOCUSATE 100 MG CAPSULE PO ×2 (08:19→20:37)
[2021-06-21] MEDS: METFORMIN HCL 500 MG TABLET 125 MG PO ×4 (08:20→20:37)
[2021-06-21] MEDS: TAMSULOSIN 0.4 MG CAPSULE PO (08:21)
[2021-06-21] MEDS: CLOBETASOL 0.05% 1 EACH TOP (08:21)
--- NOTE | 2021-06-21 09:15 | OT.IP.EVAL ---
Current Diagnoses Spinal stenosis, lumbar region without neurogenic claudication (06/20/21) Arthrodesis status (06/20/21) Surgery Performed Operation Date: 06/20/21 12:15 Actual Procedures p L2-3 TLIF, L3-5 HWR, L2-5 PSF w. instumentation - Chiki Avila MD Past Medical History (Last Reviewed 06/21/21 @ 09:28 by Solomon Hebert PA-C) Anal fissure (02/2018) Anal fissure Anxiety Back pain Benign prostatic hyperplasia (01/02/15) BPH (benign prostatic hyperplasia) Cellulitis of lower extremity Controlled type 2 diabetes mellitus without complication (04/30/16) COPD (chronic obstructive pulmonary disease) Cramps of lower extremity (01/02/15) Degenerative arthritis of lumbar spine Degenerative disc disease Essential hypertension GERD (gastroesophageal reflux disease) H/O colonoscopy (07/08/15) History of lumbar fusion (02/01/19) Hx of hand surgery (~2004) Hx of inguinal hernia surgery (1996) Hx of microdiscectomy (07/01/18) Inflamed internal hemorrhoid (02/2018) Left sided sciatica Lumbar disc herniation with radiculopathy Osteoarthritis of lower back (09/19/14) Peripheral neuropathy Pneumonia Prepatellar bursitis of right knee Spinal stenosis Status post epidural steroid injection Tear of rotator cuff (09/19/14) Surgical History (Last Reviewed 06/21/21 @ 09:28 by Solomon Hebert PA-C) H/O colonoscopy (07/08/15) H/O sinus surgery (2003) History of elbow surgery History of lumbar fusion (02/01/19) History of sebaceous cyst (2000) Hx of hand surgery (~2004) Hx of inguinal hernia surgery (1996) Hx of microdiscectomy (07/01/18) Status post epidural steroid injection Status post laminectomy Occupational Therapy Inpatient Evaluation/Re-Eval M1 PT/OT-IP Prior Functional Status Start: 06/21/21 11:25 Freq: NEEDED Status: Active Protocol: Document 06/21/21 12:57 [facility] (Rec: 06/21/21 13:14 [facility] [id number]) Medical Review Prior Functional Status Medical History Reviewed Yes Communication able to make needs known Mobility and Gait pt stated that he is independent with all mobilities and ambulation without AD Activities of Daily Living and IADL's Pt states able to do all ADl and IADl but had pain. Social History Household Members none Living Arrangements Mobile home Number of Stairs To Enter/Railing? 3 steps to enter with B rails Home Environment Standard Height Toilet,Tub/ Shower Home Equipment Front Wheel Walker,Shower Seat with Backrest,Long Handled Sponge,Coding Clerks Supervisor,Sock Aid Additional Social History Comment pt's friend Nicola will stay with pt to assist him M2 OT-IP Current Condition Start: 06/21/21 12:57 Freq: Status: Active Protocol: Document 06/21/21 12:57 [facility] (Rec: 06/21/21 13:14 [facility] [id number]) Occupational Therapy Current Condition Current Condition Evaluation Date 06/21/21 Treatment Diagnosis S/p L2-3, L3-4 fusion and lami Diagnosis Onset Date 06/20/21 M3 OT- IP Subjective and Pain Start: 06/21/21 12:57 Freq: Status: Active Protocol: Document 06/21/21 12:57 [facility] (Rec: 06/21/21 13:14 [facility] [id number]) OT- Subjective Occupational Therapy Visit Type Type Initial Evaluation Visit Start Time 09:15 Visit Stop Time 10:10 Total Visit Minutes 48 Notes [id number] [id number] Occupational Therapy Visit Comments Patient Comments Pt agreed to get up for OT eval. Patient/Caregiver Goals To go home. OT Pain Assessment Pain When Pain Assessed During Mobility Pain Present Pain Present Pain Reported Location Left Lower Back Intensity 4 Scale Used Numeric (0 - 10) M4 OT- IP ADL's Start: 06/21/21 12:57 Freq: Status: Active Protocol: Document 06/21/21 12:57 [facility] (Rec: 06/21/21 13:14 [facility] [id number]) OT ADL-Grooming General Evaluation Grooming Ability Independent OT ADL-Oral Care General Eval Oral Care Ability Independent Areas of Assistance Retrieving/Set-Up of Items Comments Oral Care Comments Educated best to spit into a cup or hinge at his hips to spit into the cup to best follow his back precautions. OT ADL-Dressing General Eval Lower Body Dressing Ability Maximum Assistance Areas Needing Assistance Socks Comments OT Dressing Comments Pt has all LB dressing equipment at home from prior back sx to be able to assist for his needs. OT ADL-Toileting Comments OT Toileting Comments Healy just taken out. Pt states did not have to go yet. Pt states he normally wipes from the front after a bowel movement and educated on possible use of wipes, toilet paper aid and bidet. Pt insists that he will manage and will be careful not to bend. Otherwise pt states he just will get into the shower and clean up. Pt states to sleep in his recliner and agreed to have a urinal close by to use. OT ADL-Bathing Comments OT Bathing Comments Pt not wanting to shower yet. Pt would benefit form use of walk in shower, however per pt his there and therefore has been just using the tub/shower. Pt would benefit from grab bar and friend to assist to help get into the shower. Suggested that he could wear a robe and have friend assist him in and then he can shower and put robe back on and friend to help him get out. Also best to practice first with his clothes on. M5 OT- IP IADL's Start: 06/21/21 12:57 Freq: Status: Active Protocol: Document 06/21/21 12:57 [facility] (Rec: 06/21/21 13:14 [facility] [id number]) OT-Instrumental Activities of Daily Living Home Safety Awareness Awareness of Need for Assistance at Home Decreased Awareness Home Safety Comments Pt impulsive and insistent on his way to do things. Pt would benefit from supervision and assist as needed. M6 OT- IP Functional Cognition Start: 06/21/21 12:57 Freq: Status: Active Protocol: Document 06/21/21 12:57 [facility] (Rec: 06/21/21 13:14 [facility] [id number]) Cognitive Factors Limiting Selfcare Function Cognitive Ability Level of Alertness Alert Patient Orientation Name,Place,Situation Attention Span Ability Capable of Focused Attention, Capable of Sustained Attention Ability to Follow Commands Able to Follow One Step Commands Safety Awareness Underestimates Need for Assistance Cognitive Comments Cognitive Assessment Comments Pt a bit impulsive and tends to want to pull up on the FWW when coming to stand even after educating pt best to put at least one hand to push off from the surface standing up from. OT- Vision and Hearing OT- Hearing Assessment OT- Hearing Assessment WFL M7 OT- IP Mobility and Balance Start: 06/21/21 12:57 Freq: Status: Active Protocol: Document 06/21/21 12:57 [facility] (Rec: 06/21/21 13:14 [facility] [id number]) OT- Bed Mobility Assessment Rolling Type of Rolling Roll to Right Level of Assistance Contact Guard Assistance Supine to Sit Supine to Sit Assist Contact Guard Assistance,1 Person Assistance OT-Transfer Assessment Sit to and From Stand Sit to and from Stand Contact Guard Assistance, Minimal Assistance Technique Transfer Destination Bed,Chair Transfer Technique Stand Step Pivot Devices Transfer Assistive Devices Gait Belt,Front Wheeled Walker Comments Mobility Comments CGA to stand to FWW and CGA for occasional balance and VC to keep the FWW in front of him. OT- Gait Assessment Comments Gait Ability Comments CGA with FWW. OT- Balance Assessment Sitting Balance and Reactions Static Sitting Balance Ability Good Dynamic Sitting Balance Ability Good Standing Balance and Reactions Static Standing Balance Ability Fair M8 OT- IP Objective Assessments Start: 06/21/21 12:57 Freq: Status: Active Protocol: Document 06/21/21 12:57 [facility] (Rec: 06/21/21 13:14 [facility] [id number]) OT Gross Range of Motion Upper Extremity Range of Motion Assessment Within Functional Limits OT-Muscle Tone Assessment Muscle Tone WNL Yes M9 OT- IP Assessment and Plan Start: 06/21/21 12:57 Freq: Status: Active Protocol: Document 06/21/21 12:57 [facility] (Rec: 06/21/21 13:14 [facility] [id number]) OT Summary Assessment and Plan Potential Rehabilitation Potential Good Analytic Complexity at Evaluation Low Summary OT Impairments Pain,Balance,Functional Mobility,Dressing,Toileting, Bathing,Toilet Transfers, Shower Transfers Progress Towards Goals Progressing Toward Goals Assessment Summary Pt low complexity and main barriers are steps, pt a bit impulsive and insistent on his care, and reminders to follow his back precautions. Pt to have a friend stay with him when medically stable. Goals Grooming Goal Independent Dressing Goal Independent Toileting Goal Independent Bathing Goal Independent Toilet Transfer Goal Independent Shower Transfer Goal Independent Days to Meet Goals 3 Frequency of Treatment Frequency Of Treatment Once a Day Treatment Plan OT Treatment Plan ADL Training,Functional Mobility,Patient/Family Education,Discharge Planning Other Treatment Recommendations and Next shower Treatment Focus Discharge Recommendations OT Discharge Recommendations Home with Assistance Home Equipment Needs grab bar for shower Transportation Needs at Discharge Private Vehicle
--- NOTE | 2021-06-21 09:25 | PM.PNPO.1 ---
Subjective Subjective Date Patient Seen: 06/21/21 Time Patient Seen: 09:25 Interval history: Pain was severe yesterday evening. Patient states the pain is better controlled this morning. Denies fever or chills. No nausea or vomiting. Patient does have some but the home to assist him however does not feel safe to go home today. Patient has severe anxiety due to complications with prior back surgery. Exam Vital Signs (past 8 hours): - 06/21/21 01:47 06/21/21 01:51 06/21/21 08:00 Temperature 97.2 F L Pulse Rate 63 64 Respiratory Rate 16 17 Blood Pressure 117/51 L 117/51 L 147/65 H Pulse Oximetry 97 06/21/21 08:19 Temperature Pulse Rate Respiratory Rate Blood Pressure 147/65 H Pulse Oximetry Oxygen Delivery Method Room Air Oxygen Flow Rate 0 Narrative Exam Narrative: 70-year-old male resting comfortably in bedside chair no apparent distress. Motor functions intact bilateral lower extremities. Sensation grossly intact to light touch bilateral lower extremities. Scant drainage on the dressing otherwise intact. Objective Labs Result Diagrams: 06/21/21 06:25 Labs: Laboratory Results - last 24 hr 06/21/21 06:25 Hgb 13.2 L Hct 40.7 L PFSH Medical History Anal fissure (02/2018) Anal fissure Anxiety Back pain Benign prostatic hyperplasia (01/02/15) BPH (benign prostatic hyperplasia) Cellulitis of lower extremity Controlled type 2 diabetes mellitus without complication (04/30/16) COPD (chronic obstructive pulmonary disease) Cramps of lower extremity (01/02/15) Degenerative arthritis of lumbar spine Degenerative disc disease Essential hypertension GERD (gastroesophageal reflux disease) Inflamed internal hemorrhoid (02/2018) Left sided sciatica Lumbar disc herniation with radiculopathy Osteoarthritis of lower back (09/19/14) Peripheral neuropathy Pneumonia Prepatellar bursitis of right knee Spinal stenosis Tear of rotator cuff (09/19/14) Surgical History H/O colonoscopy (07/08/15) H/O sinus surgery (2003) History of elbow surgery History of lumbar fusion (02/01/19) History of sebaceous cyst (2000) Hx of hand surgery (~2004) Hx of inguinal hernia surgery (1996) Hx of microdiscectomy (07/01/18) Status post epidural steroid injection Status post laminectomy Family History Father [place] (myocardial infarction) Grandmother Diabetes mellitus Mother Lymphoma Grandfather Colon cancer Sister Bladder cancer Social History marital status: (11/01/18) household members: none Smoking Status: Former smoker alcohol intake: current Assessment & Plan Post-op Postoperative Procedures: Procedures Operation Date: 06/20/21 12:15 Actual Procedure Side Surgeon p L2-3 TLIF, L3-5 HWR, L2-5 PSF w. instumentation Chiki Avila MD Postoperative day: 1 Postoperative status narrative: Stable Postoperative plan narrative: Mobilize with physical therapy. Limit bending, twisting, lifting. Continue work on pain management. If patient progresses as expected likely discharge home tomorrow. Quality VTE Deep Vein Thrombosis/Pulmonary Embolism Present on Admission: No
--- NOTE | 2021-06-21 10:10 | PT.IIE ---
Current Diagnoses Spinal stenosis, lumbar region without neurogenic claudication (06/20/21) Arthrodesis status (06/20/21) Surgery Performed Operation Date: 06/20/21 12:15 Actual Procedures p L2-3 TLIF, L3-5 HWR, L2-5 PSF w. instumentation - Chiki Avila MD Surgical History (Last Reviewed 06/21/21 @ 09:28 by Solomon Hebert PA-C) H/O sinus surgery (2003) History of elbow surgery History of sebaceous cyst (2000) Status post laminectomy Medical History (Last Reviewed 06/21/21 @ 09:28 by Solomon Hebert PA-C) Anal fissure (02/2018) Anal fissure Anxiety Back pain Benign prostatic hyperplasia (01/02/15) BPH (benign prostatic hyperplasia) Cellulitis of lower extremity Controlled type 2 diabetes mellitus without complication (04/30/16) COPD (chronic obstructive pulmonary disease) Cramps of lower extremity (01/02/15) Degenerative arthritis of lumbar spine Degenerative disc disease Essential hypertension GERD (gastroesophageal reflux disease) Inflamed internal hemorrhoid (02/2018) Left sided sciatica Lumbar disc herniation with radiculopathy Osteoarthritis of lower back (09/19/14) Peripheral neuropathy Pneumonia Prepatellar bursitis of right knee Spinal stenosis Tear of rotator cuff (09/19/14) Physical Therapy Inpatient Evaluation/Re-Eval M1 PT/OT-IP Prior Functional Status Start: 06/21/21 11:25 Freq: NEEDED Status: Active Protocol: Document 06/21/21 10:10 AB (Rec: 06/21/21 11:36 AB [id number]) Medical Review Prior Functional Status Medical History Reviewed Yes Communication able to make needs known Mobility and Gait pt stated that he is independent with all mobilities and ambulation without AD Social History Household Members none Living Arrangements Mobile home Number of Floors (Floors) One Floor Number of Stairs To Enter/Railing? 3 steps to [place] with B rails Home Environment Standard Height Toilet,Tub/ Shower Home Equipment Front Wheel Walker,Shower Seat with Backrest Additional Social History Comment pt's friend Nicola will stay with pt to assist him M2 PT-IP Current Condition Start: 06/21/21 11:25 Freq: NEEDED Status: Active Protocol: Document 06/21/21 10:10 AB (Rec: 06/21/21 11:36 [id number]) Physical Therapy Current Condition Current Condition Evaluation Date 06/21/21 Treatment Diagnosis s/p L2-3, L3-4 fusion/lami/ instrumentation; difficulty in walking Onset Date 06/20/21 Precautions Lumbar Precautions Log Roll,No Twisting,Limit Bending,Lifting Restriction of 10 lbs,Gait Belt above Incisional Area M3 PT-IP Subjective Start: 06/21/21 11:25 Freq: NEEDED Status: Active Protocol: Document 06/21/21 10:10 AB (Rec: 06/21/21 11:36 [id number]) Subjective Physical Therapy Visit Type Type Initial Evaluation Visit Start Time 10:10 Visit Stop Time 10:30 Total Visit Minutes 20 Number of SUSTAINABLE DESIGN COORDINATOR Visits 0 Physical Therapy Visit Comments Patient Comments pt is agreeable to do PT Therapy Pain Assessment Pain When Pain Assessed At Rest Pain Present Pain Present Pain Reported Location Left Lower Back Intensity 8 Scale Used Numeric (0 - 10) Pain Management Techniques Apply Cold,Distraction, Modification of Treatment,Re- positioning,Timing of Activity with Medications M4 PT-IP Mobility and Gait Start: 06/21/21 11:25 Freq: NEEDED Status: Active Protocol: Document 06/21/21 10:10 AB (Rec: 06/21/21 11:36 [id number]) PT-Bed Mobility Assessment Rolling Type of Rolling Log Rolling Level of Assist Standby Assistance Supine to Sit Supine to Sit Standby Assistance Sit to Supine Sit to Supine Standby Assistance PT-Transfer Assessment Sit to and From Stand Sit to and from Stand Standby Assistance Equipment Transfer Assistive Device Gait Belt,Front Wheeled Walker Orthotic/Prosthetic Devices or Brace: No Transfers Transfer Destination Bed,Chair Transfer Technique ambulated Transfer Ability Level of Assist Standby Assistance,1 Person Assistance,Use of Upper Extremities Comments Mobility Comments pt was able to recall back precautions. pt sitting on chair and agreed to do PT. completed sit to stand from chair SBA and ambulated in room using FWW ~ 75 ft SBA. completed log roll sit<>supine SBA. ambulated back to chair using fWW SBA. positioned pt on chair. call light and table placed within reach. c/o increase back pain. informed nurse. Gait Assessment Gait Gait Assistance Required: Standby Assistance Distance (Feet) 75 Able to Maintain Weight Bearing Status Yes During Gait Assistive Devices Assistive Device Gait Belt,Front Wheeled Walker Orthotic/Prosthetic Devices or Brace: No Gait Deviations General Gait Pattern Antalgic,Decreased Stride Length,Decreased Feet Clearance Factors Limiting Gait Function Factors Limiting Gait Function Decreased Activity Tolerance, Decreased Strength,Limited Range of Motion,Pain,Poor Balance Comments Gait Comments pls refer to mobility section for details PT-Balance Assessment Sitting Balance and Reactions Static Sitting Balance Ability Good Dynamic Sitting Balance Ability Good Standing Balance and Reactions Static Standing Balance Ability Fair Dynamic Standing Balance Ability Fair Device Used FWW M5 PT-IP Objective Assessments Start: 06/21/21 11:25 Freq: NEEDED Status: Active Protocol: Document 06/21/21 10:10 AB (Rec: 06/21/21 11:36 AB [id number]) Orientation Orientation/Cognition Level of Alertness Alert Orientation Name,Place,Situation Language Function Ability No Deficits Noted Safety Awareness Understands Safety Issues, Decreased Safety Awareness Memory Description No Deficits Noted Gross Range of Motion Lower Extremity ROM Assessment Within Functional Limits Strength Lower Extremity Strength Assessment Within Functional Limits Coordination Assessment Gross Coordination Gross Coordination WNL Sensation Assessment Sensation Gross Sensation WNL Muscle Tone Muscle Tone WNL Yes M6 PT-IP Treatment Start: 06/21/21 11:25 Freq: NEEDED Status: Active Protocol: Document 06/21/21 10:10 AB (Rec: 06/21/21 11:36 AB [id number]) Physical Therapy Treatment Education Education Provided Precautions,Safety M7 PT-IP Assessment and Plan Start: 06/21/21 11:25 Freq: NEEDED Status: Active Protocol: Document 06/21/21 10:10 AB (Rec: 06/21/21 11:36 AB [email or web address]) PT Summary Assessment and Plan Potential Rehabilitation Potential Good Status of Condition at Evaluation Evolving Summary Impairments Pain,ROM,Strength,Balance, Coordination,Sensation,Tone, Cognition,Bed Mobility, Transfers,Gait,Activity Tolerance Assessment Summary pt is doing well with mobility and needed SBA but c/o increase back pain. pt plans to go home and his friend will stay with him as long as needed to assist him. pt may go home when medically stable. Goals Bed Mobility Goal Independent Transfer Goal Independent,Front Wheeled Walker Gait Goal Independent,Front Wheel Walker Gait Distance 200 Other Goals up/down 3 steps B rails SBA Days to Meet Goals 5 Frequency of Treatment Frequency Of Treatment Twice a Day Treatment Plan Physical Therapy Treatment Plan Bed Mobility Training,Transfer Training,Gait Training, Therapeutic Exercise,Balance Retraining,Post Op Education, Discharge Planning,Hot or Cold Pack,Neuromuscular Re-ed, Coordination Retraining,Manual Therapy Precautions Lumbar Precautions Log Roll,No Twisting,Limit Bending,Lifting Restriction of 10 lbs,Gait Belt above Incisional Area Recommendations To Nursing Amount of Assist Needed 1 Person Assist Discharge Recommendations PT Discharge Recommendations Home with Assistance Transportation Needs at Discharge Private Vehicle
--- NOTE | 2021-06-21 11:08 | CM.DANOTE ---
DCP: Case received, EMR reviewed and met with patient. Introduced self and role. Was able to obtain information regarding patient's baseline activity status prior to hospitalization, as well as his current living situation. DCP assessment completed with information currently available. Patient is a 70 year old male who admitted yesterday morning to the care of the orthopedic team. PCP: Dr. Marin. Payer: confirmed: Medicare/[facility]. Patient came to the hospital for a surgical procedure. He had L2-3 posteolateral and posterior interbody fusion. Patient has history of spinal stenosis. Met with patient in his room. He was sitting up in his chair, alert and oriented, pleasant. Confirmed that he resides here in [place]. He does live alone, but has a friend named Nicola that is staying on his property. He indicated, he should be able to pick him up, and will be around if I need anything. At patient's baseline, he indicated that he has not used any DME supplies. He is still employed at [employer], and stated, he does not have any plans of retiring soon. He indicated that his spouse a couple of years ago, they had been 54 years. He has a son named Mesfin that lives in [place], and a sister named Vaughn, who is his POA, and lives here in [place]. P: DCP to continue to follow. Patient will be working with P.T. He should be able to go home when he is stable and cleared by P.T. Tessie Mccray RN/Physical Medicine Physician Discharge Planning/Care Management Advanced directive, confirm from FAMILY Start: 06/20/21 21:10 Freq: Q24H Status: Active Protocol: Document 06/20/21 21:10 (Rec: 06/20/21 22:52 [id number]) Advance Directive, confirm on record Time 21:30 Person contacted Ryland Quevedo Copy received No Advanced directive available on record No CM Discharge Assessment Start: 06/21/21 11:04 Freq: Status: Active Protocol: Document 06/21/21 11:05 (Rec: 06/21/21 11:07 [id number]) Discharge Planning Assessment Assigned Link Trainer Maintenance Man Tessie Mccray RN/Physical Medicine Physician Advance Directives? No Advance Directives on File No History Provided By Patient,Medical Record Prior Living Arrangements Mobile home Household Members none Comment He has a friend named Nicola that is staying on his property. Type of transporation used prior to Drives own vehicle admit Independent with ADL's Yes Is patient alert and oriented? Yes Caregiver for Another No Patient/Family Preference OP PT Therapy Comment Patient indicated, when able, he wants to go to [employer] [facility]. Comment Patient lives alone, but has a friend that lives on his property that he indicated, can help him if needed. Discharge Plan Home Transportation Arrangement Friend Referrals Initiated None needed Whiteboard Updated in Patient Room with Yes name and ext. # of Link Trainer Maintenance Man Review Status In Process Next Review Type Continued Stay Review Pre-Anesthesia Assessment Start: 05/15/21 09:35 Freq: Status: Complete Protocol: Document 05/15/21 09:35 [facility] (Rec: 05/15/21 10:08 [facility] [id number]) Pre-Anesthesia Assessment Patient Information Reviewed Via Phone Assessment Assessment Completed With Patient Diagnostic Results BMP/CMP,CBC Comment Labs/EKG 05/11/21, COVID screen @ 05/26/21 Primary Care Provider Cas Marin Seen Specialist in Last 12 Months Yes Specialist Seen Emergency,Orthopedist Primary Language Turkish Preferred Language Turkish [employer] Mechanic Required No Height 5 ft 7 in Weight 204 lb Body Mass Index (BMI) 31.9 Hearing Ability Normal Visual Assist Glasses Dentition Type Teeth, Natural Present,Teeth, Missing Barriers to Learning None Hx Anesthesia Reactions No Hx Family Anesthesia Reaction No Hx Malignant Hyperthermia No Hx Blood Transfusions No Hx Blood Transfusion Reaction No Anesthesia Review Requested No alcohol intake current alcohol intake frequency holidays/special occasions only Smoking Status Former smoker how long ago did patient quit smoking Quit 09/2014 Substance Use Type marijuana Comment Advised not to smoke marijuana 24 hours prior to surgery Pain Present Pain Reported Musculoskeletal Symptoms Abnormal Gait,Back Pain, Difficulty Walking,Numbness, Radiating Pain into Limb, Tingling History of Falling (Recent or History of No ) Patient is completely paralyzed or No completely immobile Mental Status Oriented to own ability Is patient on oxygen? No Does patient have CROW/SOB No Hx Sleep Apnea No CPAP/BIPAP use not prescribed Currently Taking a Beta Harvey No Can You Climb a Flight of Stairs Without Yes SOB Hx Chest Pain No Hx SOB No Hx Syncope or Dizziness No Anti-Coagulant Therapy No Has a Kettle Worker No Cardiac Testing No Hx Pacemaker/ICD No Pacemaker Rep Required? No Cardiac Clearance Received Not Applicable Diet Type At Home Regular dysphagia No Gastrointestinal Symptoms Reflux Bladder Pattern Frequency,Retention,Urgency Urinary Catheter Present No Hx Urinary Self Catheterization No Diabetes Yes HgbA1C 6.8 Date 01/24/21 Hx Drug Resistant Organism No Presence of External or Internal Medical Yes: Lumbar hardware Devices Have you had any close contact with No someone diagnosed with COVID-19? Marital Status / Lives With none Prior Living Arrangements Mobile home Support System Child/Children,Sibling(s) Does the Patient Have Assistance After Yes Surgery Patient Discharge Plan Description Return Home Comment Pt not advised on length of stay per surgeon Feels Safe in Current Environment Yes Been Physically Hurt or Threatened By a No Person in Current Environment Do you have thoughts of harming yourself None or others? Are you currently considering suicide? No Do you have a plan to hurt yourself or No Plan others? Do You Have Any Spiritual Beliefs That No May Affect Your HC Choices? Do You Have Any Cultural Practices That No May Affect Your HC Choices? Comment I believe in [place] Who Can We Speak to About Patient's Care Family, friends Identifying Code for Release of Patient Declines to issue Information Health Care Proxy/Next of Kin Joy (sister) Health Care Proxy Emergency Contact Name Joy (sister) Arabella (sister ) Terese (sister) Dimitri (son) [phone] Emergency Contact Phone Number [phone] Arabella:/Terese:[phone] Bill:[phone] Advance Directives? No Power of Deck Engineer No Power of Deck Engineer Name Joy () Power of Deck Engineer PAC Instructions Diabetes instructions,Durable medical equipment,Medications to take/avoid,Nasal antibiotic ,No ETOH/petroleum product on skin DOS,NPO,Pre-surgical wash ,Sturdy shoes/comfortable clothes,Do not bring valuables and remove jewelry Comment Pt states not instructed by surgeon for nasal abx/body wash
--- NOTE | 2021-06-21 14:05 | PT-IP ANOTE ---
checked on pt and refused PT. stated that he cannot do anything right now due to feeling really tired.
[2021-06-21] MEDS: MAGNESIUM HYDROXIDE 30 ML UDC PO (14:42)
[2021-06-21] MEDS: hydrOXYzine pamoate 25 MG CAPSULE PO (20:37)
[2021-06-21] MEDS: SENNOSIDES 8.6 MG TABLET 17.2 MG PO (20:39)
[2021-06-22] VITALS (9 sets, daily range): BP systolic 113–152; BP diastolic 44–69; PULSE 59–77; RESP 14–18; TEMP 35.8–36.8; O2SAT 91–96
[2021-06-22] MEDS: ACETAMINOPHEN 325 MG TABLET 650 MG PO ×2 (00:08→06:40)
[2021-06-22] MEDS: OXYCODONE IR 5 MG TABLET 10 MG PO ×3 (00:08→06:41)
[2021-06-22] MEDS: MORPHINE 2 MG/ML INJ IV ×4 (00:11→23:48)
[2021-06-22] MEDS: GABAPENTIN 600 MG TABLET PO ×6 (03:11→20:38)
[2021-06-22] MEDS: PANTOPRAZOLE DR 20 MG TABLET PO (06:40)
--- NOTE | 2021-06-22 09:07 | PM.PNPO.1 ---
Subjective Subjective Date Patient Seen: 06/22/21 Time Patient Seen: 09:07 Interval history: Postop day 2 lumbar spinal fusion--posterior spinal fusion 2 through 5. [id number] Hardware removal 3 through 5 Still complaining of considerable pain. Required IV pain medication through the night and Oxy 10 mg Q 3. States this is the most painful back surgery he has had. Does not feel safe going home today. States he has a neighbor that can check on him but will be much help. States that he has not yet had a bowel movement. He is urinating on his own. Denies nausea or vomiting. States he has not been able to sleep due to pain. Exam Vital Signs (past 8 hours): - 06/22/21 01:40 06/22/21 06:11 06/22/21 07:15 Temperature 97.2 F L 96.9 F L Pulse Rate 59 L 59 L 61 Respiratory Rate 16 16 Blood Pressure 128/44 L 126/67 113/65 Pulse Oximetry 96 Oxygen Delivery Method Room Air Oxygen Flow Rate 0 Const General: cooperative Nutritional Appearance: average body habitus Orientation: alert [facility] Head: normal to inspection, normocephalic and atraumatic Back/Spine/Pelvis Other: Patient is able to arise and stand on the walker for the dressing change. He ambulates on the walker but does complain of considerable hole pain. Left posterior lumbar incision with della in place. No drainage. Some dried blood the dressing. This is changed fresh dressing today. Chlorhexidine use for antiseptic and a clean dressing placed. No fluctuance. No erythema. No signs of infection. Other old lumbar scars well healed. Demonstrates dorsiflexion plantar flexion. Grossly neurovascular intact. Lower extremities. Objective Labs Result Diagrams: 06/21/21 06:25 [facility] Medical History Anal fissure (02/2018) Anal fissure Anxiety Back pain Benign prostatic hyperplasia (01/02/15) BPH (benign prostatic hyperplasia) Cellulitis of lower extremity Controlled type 2 diabetes mellitus without complication (04/30/16) COPD (chronic obstructive pulmonary disease) Cramps of lower extremity (01/02/15) Degenerative arthritis of lumbar spine Degenerative disc disease Essential hypertension GERD (gastroesophageal reflux disease) Inflamed internal hemorrhoid (02/2018) Left sided sciatica Lumbar disc herniation with radiculopathy Osteoarthritis of lower back (09/19/14) Peripheral neuropathy Pneumonia Prepatellar bursitis of right knee Spinal stenosis Tear of rotator cuff (09/19/14) Surgical History H/O colonoscopy (07/08/15) H/O sinus surgery (2003) History of elbow surgery History of lumbar fusion (02/01/19) History of sebaceous cyst (2000) Hx of hand surgery (~2004) Hx of inguinal hernia surgery (1996) Hx of microdiscectomy (07/01/18) Status post epidural steroid injection Status post laminectomy Family History Father MT (myocardial infarction) Grandmother Diabetes mellitus Mother Lymphoma Grandfather Colon cancer Sister Bladder cancer Social History marital status: (11/01/18) household members: none Smoking Status: Former smoker alcohol intake: current Assessment & Plan Post-op Postoperative Procedures: Procedures Operation Date: 06/20/21 12:15 Actual Procedure Side Surgeon p L2-3 TLIF, L3-5 HWR, L2-5 PSF w. instumentation Chiki Avila MD Postoperative day: 2 Postoperative status: marginal pain control Postoperative status narrative: Postoperative day: 2 Postoperative status narrative: Stable Postoperative plan narrative: Mobilize with physical therapy. Limit bending, twisting, lifting. Continue work on pain management. requiring oxy 10 q3 + IV pain meds still Increase bowel regimen. If patient progresses as expected likely discharge home tomorrow vs snf. states has a friend that can check on him, but limited help dressing changed today- some dry blood on dressing but no drainage from incision. Time Spent With Patient Time with patient: 15-24 minutes Quality VTE Deep Vein Thrombosis/Pulmonary Embolism Present on Admission: No
[2021-06-22] MEDS: METFORMIN HCL 500 MG TABLET 125 MG PO ×4 (09:28→20:35)
[2021-06-22] MEDS: MAGNESIUM HYDROXIDE 30 ML UDC PO (09:28)
[2021-06-22] MEDS: ENALAPRIL 5 MG TABLET 10 MG PO ×2 (09:28→20:36)
[2021-06-22] MEDS: DOCUSATE 100 MG CAPSULE PO ×2 (09:28→20:35)
[2021-06-22] MEDS: OXYCODONE IR 5 MG TABLET 15 MG PO ×4 (09:29→20:34)
[2021-06-22] MEDS: polyethylene glycoL 3350 17 GM POWD.PACK PO (09:30)
[2021-06-22] MEDS: TAMSULOSIN 0.4 MG CAPSULE PO (09:35)
--- NOTE | 2021-06-22 09:56 | PT.IPTN ---
Current Diagnoses Spinal stenosis, lumbar region without neurogenic claudication (06/20/21) Arthrodesis status (06/20/21) Surgery Performed Operation Date: 06/20/21 12:15 Actual Procedures p L2-3 TLIF, L3-5 HWR, L2-5 PSF w. instumentation - Chiki Avila MD Physical Therapy Treatment Note M2 PT-IP Current Condition Start: 06/21/21 11:25 Freq: NEEDED Status: Active Protocol: Document 06/21/21 10:10 AB (Rec: 06/21/21 11:36 AB [email or web address]) Physical Therapy Current Condition Current Condition Evaluation Date 06/21/21 Treatment Diagnosis s/p L2-3, L3-4 fusion/lami/ instrumentation; difficulty in walking Onset Date 06/20/21 Precautions Lumbar Precautions Log Roll,No Twisting,Limit Bending,Lifting Restriction of 10 lbs,Gait Belt above Incisional Area M3 PT-IP Subjective Start: 06/21/21 11:25 Freq: NEEDED Status: Active Protocol: Document 06/22/21 09:56 AW (Rec: 06/22/21 10:44 AW [id number]) Subjective Physical Therapy Visit Type Type Treatment Note Visit Start Time 09:27 Visit Stop Time 09:56 Total Visit Minutes 29 Number of LODGING FACILITIES ATTENDANT Visits 0 Physical Therapy Visit Comments Patient Comments pt is agreeable to do PT Therapy Pain Assessment Pain When Pain Assessed During Mobility Pain Present Pain Present Pain Reported Location Left Lower Back Intensity 5 Scale Used Numeric (0 - 10) Pain Management Techniques Apply Cold,Distraction, Modification of Treatment,Re- positioning,Timing of Activity with Medications M4 PT-IP Mobility and Gait Start: 06/21/21 11:25 Freq: NEEDED Status: Active Protocol: Document 06/22/21 09:56 AW (Rec: 06/22/21 10:44 AW [id number]) PT-Transfer Assessment Sit to and From Stand Sit to and from Stand Contact Guard Assistance, Minimal Assistance Equipment Transfer Assistive Device Gait Belt,Front Wheeled Walker Orthotic/Prosthetic Devices or Brace: No Transfers Transfer Destination Chair Transfer Technique ambulated with FWW Transfer Ability Level of Assist Standby Assistance,Use of Upper Extremities Comments Mobility Comments Pt was sitting up in chair taking medications as PT arrived. He stood from the chair SBA with good push off and ambulated in the room and out to the halls a total of 250 feet using FWW SBA. After completing stair training, he returned to the room and completed sit to stands x 4 with emphasis on hip hinge for maintaining spinal precautions. Pt prefers to stabilize with walker during sit<>gore inserter spite of education to use chair arms. Pt was left with call light and tray table in reach. Gait Assessment Gait Gait Assistance Required: Standby Assistance Distance (Feet) 250 Able to Maintain Weight Bearing Status Yes During Gait Assistive Devices Assistive Device Gait Belt,Front Wheeled Walker Orthotic/Prosthetic Devices or Brace: No Gait Deviations General Gait Pattern Antalgic,Decreased Stride Length,Decreased Feet Clearance Factors Limiting Gait Function Factors Limiting Gait Function Decreased Activity Tolerance, Decreased Strength,Limited Range of Motion,Pain,Poor Balance Comments Gait Comments Pt tends to walk bent forward at hips and does bear weight on the FWW during gait. He responded well to cues to bring hips forward. Stair Climbing Assessment Evaluation Level of Assist On Stairs Standby Assistance Devices Stair Climbing Assistive Devices Left Railing,Right Railing Technique/Endurance Stair Climbing Direction Ascend and Descend Stair Climbing Technique Step Over Step Number of Steps Climbed 3 Stair Climbing Set # Repetitions (reps) 1 Comments Stair Climbing Comments Pt ascended with B rails, complaining of LLE pain while in dependent position. He descended backward with B rails and good safety awareness. PT-Balance Assessment Sitting Balance and Reactions Static Sitting Balance Ability Good Dynamic Sitting Balance Ability Good Standing Balance and Reactions Static Standing Balance Ability Fair Dynamic Standing Balance Ability Fair Device Used FWW M5 PT-IP Objective Assessments Start: 06/21/21 11:25 Freq: NEEDED Status: Active Protocol: Document 06/21/21 10:10 AB (Rec: 06/21/21 11:36 AB [id number]) Orientation Orientation/Cognition Level of Alertness Alert Orientation Name,Place,Situation Language Function Ability No Deficits Noted Safety Awareness Understands Safety Issues, Decreased Safety Awareness Memory Description No Deficits Noted Gross Range of Motion Lower Extremity ROM Assessment Within Functional Limits Strength Lower Extremity Strength Assessment Within Functional Limits Coordination Assessment Gross Coordination Gross Coordination WNL Sensation Assessment Sensation Gross Sensation WNL Muscle Tone Muscle Tone WNL Yes M6 PT-IP Treatment Start: 06/21/21 11:25 Freq: NEEDED Status: Active Protocol: Document 06/22/21 09:56 AW (Rec: 06/22/21 10:44 AW [id number]) Physical Therapy Treatment Education Education Provided Precautions,Safety M7 PT-IP Assessment and Plan Start: 06/21/21 11:25 Freq: NEEDED Status: Active Protocol: Document 06/22/21 09:56 AW (Rec: 06/22/21 10:44 AW [id number]) PT Summary Assessment and Plan Summary Progress Towards Goals Progressing Toward Goals Assessment Summary Pt able to progress gait distance and complete stair training today. He does complain of increased LLE pain on stairs and during swing phase of gait with FWW but has no sign of buckling or instability. Pt has a friend who can stay with him at discharge and will be safe to discharge home with assist once medically cleared. Goals Bed Mobility Goal Independent Transfer Goal Independent,Front Wheeled Walker Gait Goal Independent,Front Wheel Walker Gait Distance 200 Other Goals up/down 3 steps B rails SBA Days to Meet Goals 5 Frequency of Treatment Frequency Of Treatment Twice a Day Treatment Plan Physical Therapy Treatment Plan Bed Mobility Training,Transfer Training,Gait Training, Therapeutic Exercise,Balance Retraining,Post Op Education, Discharge Planning,Hot or Cold Pack,Neuromuscular Re-ed, Coordination Retraining,Manual Therapy Other Recommendations and Next Treatment review bed mobility; continue Focus with gait training and Precautions Lumbar Precautions Log Roll,No Twisting,Limit Bending,Lifting Restriction of 10 lbs,Gait Belt above Incisional Area Recommendations To Nursing Amount of Assist Needed 1 Person Assist Discharge Recommendations PT Discharge Recommendations Home with Assistance Transportation Needs at Discharge Private Vehicle
--- NOTE | 2021-06-22 10:54 | CM.DPC ---
Addendum entered by Tessie Mccray R.N. 06/22/21 14:27: Received copy of patient's COVID vaccine. Faxed over to [facility]. Placed a copy in Ami's file folder to scan as well. Addendum entered by Tessie Mccray R.N. 06/22/21 11:48: Asked patient if he had vaccination card, he indicated that he can get his friend to bring it this pm, it's in his work truck. Updated Cinthya at [facility], and she will plan on coordinating transportation for tomorrow after touching base with DILLON Dempsey, who will be at this desk tomorrow. PASSR was completed today. Original Note: DCP Cont: Checked in with nurse, Yolanda, and Dr. Rock. Patient was having increased pain, he had voiced to physician and nurse, he is having so much pain, and does not feel that going home is the best plan, it was more intense surgery that I planned on, and not sure his friend is up to the task. Checked in with Amado Hollis, and she indicated that he had walked 250 feet. This renal case manager checked in with patient. Discussed planning, for patient was going to go home today. He indicated that at this time, he feels that fpc would be better, didn't realize it was going to be like this. Asked him when he first was going to have surgery if he had thought that he would initially need skilled, since he voiced yesterday that he should be able to go home. He mentioned, the surgery was more complicated, and there are some precautions that he will have to follow and feels like fpc is the best. Updated Dr. Rock, and had her sign a face to face in case he can use home health. Patient indicated that he has been to [facility]. Let him know that this funeral planner can't guarantee that he will get [facility], but can put in referral. Also, let him know he walked 250 feet, and this may be looked at at the facility. He indicated, he had to work very hard to walk that distance. Let him know that this renal case manager will be placing alternate referrals if [facility] is full, could be in [facility], and he stated, he understands. Called Christine at [facility]. She indicated that she is not sure if they will have mail beds, they may get someone from [facility]. Went ahead and faxed her the referral letting her know that patient will be ready by tomorrow, will be his 3rd Medicare midnight by then. She indicated that February will look at it tomorrow to see if there is a bed. Called Cinthya at [facility]. She indicated, she may likely be able to accept. Sent her referral, will need to see if patient was vaccinated. Called Arabella at [facility], she will also review. P: DCP to continue to follow. Will need ortho to place orders for discharge in the morning. Referrals have been sent to [facility], both [facility]. Will complete PASSR and look for vaccination card. Tessie Mccray RN/[employer]
[2021-06-22] MEDS: hydrOXYzine pamoate 25 MG CAPSULE PO ×2 (11:15→20:35)
--- NOTE | 2021-06-22 11:54 | PT.IPTN ---
Current Diagnoses Spinal stenosis, lumbar region without neurogenic claudication (06/20/21) Arthrodesis status (06/20/21) Surgery Performed Operation Date: 06/20/21 12:15 Actual Procedures p L2-3 TLIF, L3-5 HWR, L2-5 PSF w. instumentation - Chiki Avila MD Physical Therapy Treatment Note M2 PT-IP Current Condition Start: 06/21/21 11:25 Freq: NEEDED Status: Active Protocol: Document 06/21/21 10:10 AB (Rec: 06/21/21 11:36 AB [id number]) Physical Therapy Current Condition Current Condition Evaluation Date 06/21/21 Treatment Diagnosis s/p L2-3, L3-4 fusion/lami/ instrumentation; difficulty in walking Onset Date 06/20/21 Precautions Lumbar Precautions Log Roll,No Twisting,Limit Bending,Lifting Restriction of 10 lbs,Gait Belt above Incisional Area M3 PT-IP Subjective Start: 06/21/21 11:25 Freq: NEEDED Status: Active Protocol: Document 06/22/21 11:54 AW (Rec: 06/22/21 12:07 AW [id number]) Subjective Physical Therapy Visit Type Type Treatment Note Visit Start Time 11:36 Visit Stop Time 11:54 Total Visit Minutes 18 Number of CHECKER IN Visits 0 Physical Therapy Visit Comments Patient Comments I just had a shower and I'm pretty tired but I can still do PT. Patient Goals Pt does not feel ready to discharge home and hopes to go to SNF Therapy Pain Assessment Pain When Pain Assessed During Mobility Pain Present Pain Present Pain Reported Location Left Lower Back Intensity 5 Scale Used Numeric (0 - 10) Pain Management Techniques Apply Cold,Distraction, Modification of Treatment,Re- positioning,Timing of Activity with Medications M4 PT-IP Mobility and Gait Start: 06/21/21 11:25 Freq: NEEDED Status: Active Protocol: Document 06/22/21 11:54 AW (Rec: 06/22/21 12:07 AW [id number]) PT-Transfer Assessment Sit to and From Stand Sit to and from Stand Standby Assistance,Use of Upper Extremities Equipment Transfer Assistive Device Gait Belt,Front Wheeled Walker Orthotic/Prosthetic Devices or Brace: No Transfers Transfer Destination Chair Transfer Technique ambulated with FWW Transfer Ability Level of Assist Standby Assistance,Use of Upper Extremities Comments Mobility Comments Pt was sitting up in chair post-shower as PT arrived. BP 147/70 HR 64. He stood from the chair SBA ambulated with FWW SBA a total of 120 feet with multiple rest breaks due to fatigue, pain, and reported LE weakness. On return to the room, pt sat on the chair SBA . Pt was left with call light and tray table with lunch setup in reach. Gait Assessment Gait Gait Assistance Required: Standby Assistance Distance (Feet) 120 Able to Maintain Weight Bearing Status Yes During Gait Assistive Devices Assistive Device Gait Belt,Front Wheeled Walker Orthotic/Prosthetic Devices or Brace: No Gait Deviations General Gait Pattern Antalgic,Decreased Stride Length,Decreased Feet Clearance,Flexed Trunk Factors Limiting Gait Function Factors Limiting Gait Function Decreased Activity Tolerance, Decreased Strength,Limited Range of Motion,Pain,Poor Balance Comments Gait Comments Pt limited by fatigue and pain this session. PT-Balance Assessment Sitting Balance and Reactions Static Sitting Balance Ability Good Dynamic Sitting Balance Ability Good Standing Balance and Reactions Static Standing Balance Ability Fair Dynamic Standing Balance Ability Fair Device Used FWW M5 PT-IP Objective Assessments Start: 06/21/21 11:25 Freq: NEEDED Status: Active Protocol: Document 06/21/21 10:10 AB (Rec: 06/21/21 11:36 AB [id number]) Orientation Orientation/Cognition Level of Alertness Alert Orientation Name,Place,Situation Language Function Ability No Deficits Noted Safety Awareness Understands Safety Issues, Decreased Safety Awareness Memory Description No Deficits Noted Gross Range of Motion Lower Extremity ROM Assessment Within Functional Limits Strength Lower Extremity Strength Assessment Within Functional Limits Coordination Assessment Gross Coordination Gross Coordination WNL Sensation Assessment Sensation Gross Sensation WNL Muscle Tone Muscle Tone WNL Yes M6 PT-IP Treatment Start: 06/21/21 11:25 Freq: NEEDED Status: Active Protocol: Document 06/22/21 11:54 AW (Rec: 06/22/21 12:07 AW [id number]) Physical Therapy Treatment Education Education Provided Precautions,Safety M7 PT-IP Assessment and Plan Start: 06/21/21 11:25 Freq: NEEDED Status: Active Protocol: Document 06/22/21 11:54 AW (Rec: 06/22/21 12:07 AW [id number]) PT Summary Assessment and Plan Summary Progress Towards Goals Progressing Toward Goals Assessment Summary Pt was more fatigued at this session and complained of LE weakness and fatigue. He feels he would not be able to manage safely at home with current level of pain and weakness. Pt would benefit from subacute rehab - either SNF or home healht. Goals Bed Mobility Goal Independent Transfer Goal Independent,Front Wheeled Walker Gait Goal Independent,Front Wheel Walker Gait Distance 200 Other Goals up/down 3 steps B rails SBA Days to Meet Goals 5 Frequency of Treatment Frequency Of Treatment Twice a Day Treatment Plan Physical Therapy Treatment Plan Bed Mobility Training,Transfer Training,Gait Training, Therapeutic Exercise,Balance Retraining,Post Op Education, Discharge Planning,Hot or Cold Pack,Neuromuscular Re-ed, Coordination Retraining,Manual Therapy Other Recommendations and Next Treatment review bed mobility; continue Focus with gait training and stairs if going home Precautions Lumbar Precautions Log Roll,No Twisting,Limit Bending,Lifting Restriction of 10 lbs,Gait Belt above Incisional Area Recommendations To Nursing Amount of Assist Needed 1 Person Assist Discharge Recommendations PT Discharge Recommendations Home Health,Home vs SNF Transportation Needs at Discharge Private Vehicle
[2021-06-22] MEDS: SENNOSIDES 8.6 MG TABLET 17.2 MG PO (20:36)
[2021-06-23 01:37] VITALS: BP 122/58; PULSE 66
[2021-06-23] MEDS: hydrOXYzine pamoate 25 MG CAPSULE PO ×2 (03:15→06:04)
[2021-06-23] MEDS: OXYCODONE IR 5 MG TABLET 15 MG PO ×3 (03:15→09:55)
[2021-06-23 03:17] VITALS: BP 159/64; PULSE 76; RESP 18; TEMP 36.4; O2SAT 97
[2021-06-23] MEDS: MORPHINE 2 MG/ML INJ IV (03:34)
[2021-06-23] MEDS: PANTOPRAZOLE DR 20 MG TABLET PO (05:33)
[2021-06-23] MEDS: GABAPENTIN 600 MG TABLET PO ×2 (05:33→08:51)
--- NOTE | 2021-06-23 07:36 | PM.DS.1 ---
History of Present Illness History of Present Illness Date Patient Seen: 06/23/21 Time Patient Seen: 07:37 Chief complaint: low back pain s/p lumbar revision & fusion Narrative: the patient is complaining of moderate pain this morning. He denies any fevers, chills, night sweats. No nausea or vomiting. He states he has baseline dyskinesias and neuropathy in his bilateral lower extremities, which is unchanged since surgery. He is very concerned about his pain control and feels he is unsafe to go home at this time. Our care management team is working on getting him DC to SNF today. Discharge Providers Provider Date of admission: 06/20/21 10:37 Discharge Date: 06/23/21 Primary care physician: Cas Marin MD Consults: 06/20/21 16:58 Consult to Occupational Therapy Evaluate & Treat Comment: Physician Instructions: Evaluate and treat Consult to Physical Therapy Evaluate & Treat Comment: Physician Instructions: Evaluate and Treat Discharge provider: Edita Walls PA-C Summary Hospital Course Discharge Diagnosis: 1. L2-3 spinal stenosis with radiculopathy 2. Hx of L3-5 lumbar fusion with instrumentation 3. L2-3 spondylosis with radiculopathy Hospital Course: Procedure: 1. L2-3 posterolateral and posterior interbody fusion 2. L2-3 posterior interbody cage placement 3. L3-5 posterior segmental instrumentation removal 4. L3-4, L4-5 revision laminectomy with exploration of fusion 5. L2-3, L3-4, L4-5 posterior segmental instrumentation with pedicle screw placement 6. L3-4 posterolaterral fusion 7. [place] of bone marrow from iliac crest through a separate incision 8. Utilization of microsurgical technique and operating microscope Same procedure as scheduled: Yes Indications: Patient has been having chronic back pain and worsening lumbar radiculopathy. Patient had prior fusion surgery 2 and half years ago. Patient has been doing well until the last 6 months was progressively worsening leg weakness, leg pain and back pain. Patient failed multiple conservative management with worsening pain weakness and numbness in her lower extremity. Patient has been having difficulty performing activity of daily living. After discussing risks benefits of treatment options, patient elected proceed with surgery. Surgeon: Chiki Avila Radiological Health Specialist: Solomon Hebert Click Yes if Unassisted: No Anesthesia Type: General Operative Notes Closure Type: primary Specimen(s): none sent Prosthetic devices, grafts, tissues, transplants, or devices: Globus revolve screws, Rise cage Applied: catheter Estimated Blood Loss (mL): 100 Blood products transfused: none Status at Discharge Cognitive/behavioral status at discharge: oriented Functional status at discharge: uses cane/walker Overall status at discharge: patient is progressing back to baseline Exam Vital Signs (past 8 hours): - 06/22/21 23:45 06/23/21 01:37 06/23/21 03:17 Temperature 97.3 F L 97.5 F L Pulse Rate 66 66 76 Respiratory Rate 18 18 Blood Pressure 122/58 L 122/58 L 159/64 H Pulse Oximetry 91 97 Oxygen Delivery Method Room Air Oxygen Flow Rate 0 Narrative Exam Narrative: Pleasant 70-year-old male, resting comfortably in bed, no acute distress. dressing is clean, dry, intact. no surrounding erythema, induration or fluctuance. Bilateral lower extremity motor functions are grossly intact. Sensation is decreased in bilateral lower extremities, the patient states this is his baseline. Bilateral calves are soft, nontender to palpation. Objective Labs Result Diagrams: 06/21/21 06:25 [facility] Medical History Anal fissure (02/2018) Anal fissure Anxiety Back pain Benign prostatic hyperplasia (01/02/15) BPH (benign prostatic hyperplasia) Cellulitis of lower extremity Controlled type 2 diabetes mellitus without complication (04/30/16) COPD (chronic obstructive pulmonary disease) Cramps of lower extremity (01/02/15) Degenerative arthritis of lumbar spine Degenerative disc disease Essential hypertension GERD (gastroesophageal reflux disease) Inflamed internal hemorrhoid (02/2018) Left sided sciatica Lumbar disc herniation with radiculopathy Osteoarthritis of lower back (09/19/14) Peripheral neuropathy Pneumonia Prepatellar bursitis of right knee Spinal stenosis Tear of rotator cuff (09/19/14) Surgical History H/O colonoscopy (07/08/15) H/O sinus surgery (2003) History of elbow surgery History of lumbar fusion (02/01/19) History of sebaceous cyst (2000) Hx of hand surgery (~2004) Hx of inguinal hernia surgery (1996) Hx of microdiscectomy (07/01/18) Status post epidural steroid injection Status post laminectomy Family History Father [place] (myocardial infarction) Grandmother Diabetes mellitus Mother Lymphoma Grandfather Colon cancer Sister Bladder cancer Social History marital status: (11/01/18) household members: none Smoking Status: Former smoker alcohol intake: current Discharge Assessment & Plan Assessment and Plan Assessment: stable status post lumbar revision and fusion. Working on pain control Plan of Treatment: -added Oxy ER 10 mg q.12 hours for better pain control. The patient was taking an occasional Oxy 10 mg at home prior to surgery. he notes his main concern for going home and not feeling safe is pain control. -limit bending, lifting, twisting. Weightbearing as tolerated with front wheel walker -mobilize with PT - hopefully DC to SNF today, with better pain control and clearance by PT Discharge Plan Discharge Plan Patient Disposition: SNF Discharge orders & Medications Prescriptions: New acetaminophen 500 mg capsule 500 mg PO Q4H MDD max 3000 mg per day PRN (Reason: Pain, Mild (1-3)) Qty: 90 RF: 0 docusate sodium 100 mg Capsule 100 mg PO BID PRN (Reason: constipation) Qty: 30 RF: 0 hydroxyzine pamoate 25 mg Capsule 25 mg PO Q4HR PRN (Reason: aggitation, spasms, Nausea) Qty: 60 RF: 0 oxycodone [OxyContin] 10 mg Tablet,Oral Only,Ext.Rel.12 Hr 10 mg PO BID PRN (Reason: pain, severe) Qty: 30 RF: 0 oxycodone 10 mg tablet See Rx Instructions .ROUTE .COMPLEX PRN (Reason: Pain, Severe (7-10)) Qty: 42 RF: 0 Continued enalapril maleate 10 mg tablet 10 mg PO BID RF: 0 (DME) Contour Test Strips 0 .Route .MEDSUPPLY Qty: 100 RF: 0 tamsulosin [Flomax] 0.4 mg capsule 0.4 mg PO DAILY Qty: 90 RF: 3 clobetasol 0.05 % solution 1 applic TOP BID 7 Days Qty: 25 RF: 1 gabapentin 600 mg tablet 600 mg PO .COMPLEX MDD 5 Qty: 450 RF: 3 omeprazole 20 mg Capsule,Delayed Release(Dr/Ec) 20 mg PO DAILY RF: 0 metformin 500 mg tablet 125 mg PO QID RF: 0 Discontinued hydrocodone-acetaminophen 5-325 mg tablet 1 tab PO BID PRN (Reason: Pain) RF: 0 Follow up/Referrals: Cas Marin MD [Primary Care Provider] - Chiki Avila MD [Physician] - ( 10-14 days for postoperative visit) Diet/Activity/Treatments Diet: Diet as Tolerated and Regular Activity: limit bending, lifting, twisting. Weightbearing as tolerated with front wheeled walker Cold/Heat Therapy: use ice as needed for pain Other treatments: oxy ER 10 mg every 12 hours for pain. Oxy IR 5-15 mg every 3 hours as needed for moderate to severe pain Skin/Wound/Dressing Care Report to your healthcare provider any signs of infection, such as:: chills, fever, night sweats, unusual drainage and unusual redness Dressing: keep dressing dry. Please contact the office if dressing becomes wet, soiled, saturated [facility] Reason for rehabilitation: Post-operative therapy Restrictions to mobility: limit bending, lifting, twisting. Visit Report/Discharge Packet Instructions: DI for Prescription Opioid Use, DI for Transforaminal Lumbar Interbody Fusion Stand Alone Forms: Surgery Discharge Discharge Data Primary Care Provider: Cas Marin Quality VTE Deep Vein Thrombosis/Pulmonary Embolism Present on Admission: No
[2021-06-23 08:31] VITALS: BP 144/68; PULSE 71; RESP 18; TEMP 36.4; O2SAT 98
[2021-06-23] MEDS: polyethylene glycoL 3350 17 GM POWD.PACK PO (08:50)
[2021-06-23 08:51] LABS: COVID19 - ADMIT (NP swab/PCR) Negative (Negative)
[2021-06-23] MEDS: DOCUSATE 100 MG CAPSULE PO (08:51)
[2021-06-23] MEDS: METFORMIN HCL 500 MG TABLET 125 MG PO (08:51)
[2021-06-23] MEDS: TAMSULOSIN 0.4 MG CAPSULE PO (08:52)
[2021-06-23] MEDS: OXYCODONE ER 10 MG TAB PO (08:52)
[2021-06-23] MEDS: ENALAPRIL 5 MG TABLET 10 MG PO (08:52)
[2021-06-23] MEDS: SODIUM CHLORIDE 0.9% FLUSH 10 ML IV (08:54)
--- NOTE | 2021-06-23 08:56 | CM.DPC ---
DCP Discharge SNF Per Ortho PA, pt medically stable to d/c to SNF today and no identified barriers to d/c. Per PT, pt ambulated well yesterday and did some stairs and KIESELGUHR REGENERATOR OPERATOR assisted pt with shower. SW received a call from [facility] admissions stating they have a male bed that opened up and could accept pt today around [id number] with RN report number [phone] with NEHEMIAH Ferguson. SW met bedside with pt and explained role and discussed acceptance at his first SNF choice [facility] and pt initially states he wants to appeal d/c as he feels like he is not ready to discharge yet and its too soon. SW discussed the appeal process and highlighted the number to call for [facility] and explained the appeal process and coverage during appeal process and review to determine if pt is medically stable to d/c for lower level of care like SNF. SW discussed unable to guarantee an available SNF bed at which facility once appeal process complete and if he feels his medical needs cannot be managed at SNF with consultation from Ortho team if needs arise. Pt states he now feel comfortable with d/c to [facility], does not want [facility] or [facility] at this time due to location, and does not feel he needs to appeal. Pt has copy of Medicare Rights to keep reviewing if needed. MARIS called [facility] and updated that pt discharging to different SNF. MARIS updated RN, albacore fishing boat crewman, HANS regarding d/c time around 1200 to [facility] and updated COVID obtained today. ALBERTO Mueller kindly faxing d/c packet to [facility] to review. MARIS updated [facility] admissions on pt's concerns and confirmed that they will follow closely with Indu Tinoco for any needs or concerns. Plan: Patient to d/c to [facility] today around 1200 via facility van prior to safe return home. DILLON Dorsey
--- NOTE | 2021-06-23 08:59 | CM.DPNOTE ---
Faxed signed meds, order, covid result, and PASRR to [facility] per Roselyn. Ami Uriarte CM Asst.
--- NOTE | 2021-06-23 09:39 | PC.NURSE ---
Day shift: Report given to Ghislaine at [facility] at approx [phone]. All questions answered.
--- NOTE | 2021-06-23 10:30 | OT.IP.TRT ---
Current Diagnoses Spinal stenosis, lumbar region without neurogenic claudication (06/20/21) Arthrodesis status (06/20/21) Surgery Performed Operation Date: 06/20/21 12:15 Actual Procedures p L2-3 TLIF, L3-5 HWR, L2-5 PSF w. instumentation - Chiki Avila MD Occupational Therapy Treatment Note M2 OT-IP Current Condition Start: 06/21/21 12:57 Freq: Status: Active Protocol: Document 06/21/21 12:57 [facility] (Rec: 06/21/21 13:14 [facility] [id number]) Occupational Therapy Current Condition Current Condition Evaluation Date 06/21/21 Treatment Diagnosis S/p L2-3, L3-4 fusion and lami Diagnosis Onset Date 06/20/21 M3 OT- IP Subjective and Pain Start: 06/21/21 12:57 Freq: Status: Active Protocol: Document 06/23/21 10:34 [facility] (Rec: 06/23/21 10:37 [facility] [id number]) OT- Subjective Occupational Therapy Visit Type Type Administrative Note Notes Attempted to see pt for OT services. Pt sleeping soundly and refused therapy earlier this AM. Pt is planned for discharge to SNF today. Will hold at this time.
--- NOTE | 2021-06-23 11:29 | PT-IP ANOTE ---
Checked on pt twice this AM but he was sleeping soundly both times. Agreed with RN not to disturb pt who is preparing for discharge to SNF at noon.
--- NOTE | 2021-06-23 12:19 | PC.NURSE ---
Day shift: Pt left unit at approx 1215. He is going to rehab at [facility]. He was there before for a previous surgery. He stated that he gets better care here in the hospital. He has all personal belongings. Dressing on his back remains CDI. SNF packet given to transfer person. Pt taken in WC.
== END 2021-06-23 12:21 | DRG 454 ==
PROVIDERS: Admitting Provider Orthopaedic Surgery Orthopaedic Surgery of the Spine; PCP Family Medicine; Referring Provider Orthopaedic Surgery Orthopaedic Surgery of the Spine; Visit Provider Orthopaedic Surgery Orthopaedic Surgery of the Spine
PROC: 0SG00AJ Fusion of Lumbar Vertebral Joint with Interbody Fusion Device, Posterior Approach, Anterior Column, Open Approach (ICD-10-PCS; principal; 2021-06-20 12:15)
DX: M48.061 Spinal stenosis, lumbar region without neurogenic claudication (principal); M96.0 Pseudarthrosis after fusion or arthrodesis; M47.26 Other spondylosis with radiculopathy, lumbar region; Z98.1 Arthrodesis status; M96.1 Postlaminectomy syndrome, not elsewhere classified; G89.18 Other acute postprocedural pain; E11.9 Type 2 diabetes mellitus without complications; Z79.84 Long term (current) use of oral hypoglycemic drugs; K21.9 Gastro-esophageal reflux disease without esophagitis; I10 Essential (primary) hypertension; N40.0 Benign prostatic hyperplasia without lower urinary tract symptoms; Z20.822 Contact with and (suspected) exposure to COVID-19; Z87.891 Personal history of nicotine dependence
CPT/HCPCS: 36415; 72100; 76000; 85014; 85018; 87635; 97116; 97161; 97165; 97530; 97535; C1776; C9803; C9290; J0171; J0690; J1100; J1170; J2060; J2250; J2270; J2405; J2704; J3010; J3410

== ENCOUNTER → 2021-07-22 07:26 | Outpatient (CLI) | payer MEDICARE, OTHER, SELFPAY ==
[2021-06-20 10:47] VITALS: BMI 31.9
[2021-07-22 09:28] LABS: Hemoglobin A1C% w Est Avg Glu 6.6 % (4.0-6.0)
[2021-07-22 10:02] LABS: Prostate Specific Antigen Scrn 1.61 ng/mL (0.1-4.0)
== END ==
PROVIDERS: PCP Family Medicine; Referring Provider Family Medicine; Visit Provider Family Medicine
DX: E11.9 Type 2 diabetes mellitus without complications (principal); Z12.5 Encounter for screening for malignant neoplasm of prostate; N40.0 Benign prostatic hyperplasia without lower urinary tract symptoms
CPT/HCPCS: 36415; 83036; G0103

== ENCOUNTER 2021-10-11 11:58 | Emergency (ER) | payer MEDICARE, OTHER, SELFPAY ==
[2021-06-20 10:47] VITALS: BMI 31.9
[2021-10-11] VITALS (14 sets, daily range): BP systolic 160–240; BP diastolic 74–142; PULSE 57–75; RESP 14–41; TEMP 36.2; O2SAT 94–96
[2021-10-11 12:58] LABS: Add Manual Diff / Slide Review NO; Basophils Absolute Auto 100 /uL (0-100); Basophils Percent Auto 1.1 % (0-2); Eosinophils Absolute Auto 100 /uL (0-450); Eosinophils Percent Auto 1.8 % (2-4); Hematocrit 46.6 % (41-53); Hemoglobin 15.4 g/dL (13.5-17.5); Lymphocytes Absolute Auto 800 /uL (1100-4500); Lymphocytes Percent Auto 15.7 % (25-40); Mean Corpuscular Hemoglobin 28.1 PG (26-34); Mean Corpuscular Volume 85.1 fL (80-100); Monocytes Absolute Auto 400 /uL (0-900); Monocytes Percent Auto 8.5 % (3-14); Neutrophils Absolute Auto 3700 /uL (1500-7000); Neutrophils Percent Auto 72.9 % (50-75); Platelet Count 155 X10^3/uL (150-400); Red Blood Cell Count 5.47 X10^6/uL (4.5-5.9); Red Cell Distribution Width 14.7 % (11.6-14.8); White Blood Cell Count 5.1 X10^3/uL (4.5-11.0)
[2021-10-11 13:27] LABS: Alanine Aminotransferase 55 IU/L (<50); Albumin 4.1 g/dL (3.5-5.0); Albumin Globulin Ratio 1.4 (1.0-2.8); Alkaline Phosphatase 63 U/L (38-126); Aspartate Aminotransferase 63 IU/L (17-59); BUN Creatinine Ratio 18.1 (6-22); Bilirubin Total 0.6 mg/dL (0.2-1.3); Blood Urea Nitrogen 17 mg/dL (9-20); Calcium 8.9 mg/dL (8.4-10.2); Carbon Dioxide 30 mmol/L (22-32); Chloride 101 mmol/L (98-107); Estimated Glomerular Filt Rate > 60.0 mL/min (>60); Glucose 127 mg/dL (80-110); HEMOLYSIS 17 (0-50); Lipase 145 U/L (23-300); Potassium 4.1 mmol/L (3.4-5.1); Sodium 138 mmol/L (137-145); Total Protein 7.1 g/dL (6.3-8.2)
[2021-10-11] MEDS: KETOROLAC 30 MG/ML VIAL 15 MG IV (14:59)
--- NOTE | 2021-11-23 03:57 | ED_ITS ---
HPI - General Adult General Chief complaint: Abdominal Pain Stated complaint: RT SIDE KNEE TO RIB PAIN Time Seen by Provider: 10/11/21 14:22 Source: patient Mode of arrival: Ambulatory History of Present Illness HPI narrative: 70-year-old gentle with a history of diabetes, chronic back pain, chronic neuropathic pain, hypertension, hyperlipidemia and COPD who presents today with complaints of right lower quadrant abdominal pain that is radiating up toward his shoulder. It has been getting worse over the last 3 days. He did take oxycodone just prior to arrival and found that it helped minimally but still he is unable to sleep. He complains of no fevers, cough, chills. He has been minimally constipated complains of no dysuria or urinary frequency. He has had no palpitations or headaches. Does not complain of general myalgias. Related Data Home Medications Medication Instructions Recorded Confirmed omeprazole 20 mg capsule,delayed 20 mg PO DAILY 05/26/21 10/16/21 release Previous Rx's Medication Instructions Recorded Contour Test Strips #100 each 12/25/19 clobetasol 0.05 % scalp solution 1 applic TOP BID 7 Days #25 ml 09/16/20 hydroxyzine pamoate 25 mg capsule 25 mg PO Q4HR PRN #60 cap 06/23/21 atorvastatin 10 mg tablet 10 mg PO BEDTIME #90 tab 08/05/21 gabapentin 600 mg tablet 600 mg PO .COMPLEX #450 tab MDD 5 08/05/21 metformin 500 mg tablet 125 mg PO QID #90 tab 08/05/21 tamsulosin 0.4 mg capsule (Flomax) 0.4 mg PO DAILY #90 cap 08/05/21 diclofenac sodium 1 % topical gel 2 g TOPICAL QID #100 g 08/14/21 (Voltaren Arthritis Pain) lidocaine 5 % topical patch 1 patch TOPICAL DAILY #15 ea 10/11/21 (Lidoderm) valacyclovir 1 gram tablet 1,000 mg PO TID #21 tab 10/11/21 enalapril maleate 10 mg tablet 10 mg PO BID #180 tab 10/13/21 methylprednisolone 4 mg tablets in See Rx Instructions PO PER PKG DIR 10/16/21 a dose pack #21 ea lidocaine 4 % topical cream 1 applic TOPICAL BID PRN #30 g 10/20/21 triamcinolone acetonide 0.5 % 1 applic TOPICAL TID #30 g 10/21/21 topical cream hydrocodone 7.5 mg-acetaminophen 1 tab PO Q4-6H PRN #30 tab 11/07/21 325 mg tablet Allergies Allergy/AdvReac Type Severity Reaction Status Date / Time Sulfa (Sulfonamide Allergy Severe BLISTER, Verified 10/11/21 12:08 Antibiotics) skin [SULFA (SULFONAMIDE comes off ANTIBIOTICS)] my legs latex [LATEX] Allergy Mild SKIN Verified 10/11/21 12:08 IRRITATION amoxicillin [AMOXICILLIN] AdvReac Severe Makes my Verified 10/11/21 12:08 skin crawl clavulanic acid AdvReac Severe AUGMENTIN/V Verified 10/11/21 12:08 [CLAVULANIC ACID] OMITING Penicillins [PENICILLINS] AdvReac Severe NAUSEA/VOMI Verified 10/11/21 12:08 TING ciprofloxacin [CIPROFLOXACIN] AdvReac Intermediate MADE PT Verified 10/11/21 12:08 FEEL RUMMY/NAUSEA erythromycin base AdvReac Intermediate SKIN Verified 10/11/21 12:08 [ERYTHROMYCIN BASE] CRAWLING Review of Systems Review of Systems Narrative: Remainder of complete review of systems is otherwise unremarkable except for that included in the HPI. Patient History Medical History Anal fissure (02/2018) Anal fissure Anxiety Back pain Benign prostatic hyperplasia (01/02/15) BPH (benign prostatic hyperplasia) Cellulitis of lower extremity Controlled type 2 diabetes mellitus without complication (04/30/16) COPD (chronic obstructive pulmonary disease) Cramps of lower extremity (01/02/15) Degenerative arthritis of lumbar spine Degenerative disc disease Essential hypertension GERD (gastroesophageal reflux disease) Inflamed internal hemorrhoid (02/2018) Left sided sciatica Lumbar disc herniation with radiculopathy Osteoarthritis of lower back (09/19/14) Peripheral neuropathy Pneumonia Prepatellar bursitis of right knee Spinal stenosis Tear of rotator cuff (09/19/14) Surgical History H/O colonoscopy (07/08/15) H/O sinus surgery (2003) History of elbow surgery History of lumbar fusion (02/01/19) History of sebaceous cyst (2000) Hx of hand surgery (~2004) Hx of inguinal hernia surgery (1996) Hx of microdiscectomy (07/01/18) Status post epidural steroid injection Status post laminectomy Family History Father GA (myocardial infarction) Grandmother Diabetes mellitus Mother Lymphoma Grandfather Colon cancer Sister Bladder cancer Social History marital status: (11/01/18) household members: none Smoking Status: Former smoker alcohol intake: current Smoking Status: Former smoker alcohol intake frequency: holidays/special occasions only Alcohol type: beer Substance Use Type: marijuana Exam Initial Vital Signs Initial Vital Signs: Vital Signs Temperature 97.2 F L 10/11/21 12:04 Pulse Rate 72 10/11/21 12:04 Respiratory Rate 14 10/11/21 12:04 Blood Pressure 226/103 H 10/11/21 12:04 Pulse Oximetry 95 10/11/21 12:04 General: Appears to be in a moderate amount of pain, frustrated but Able to give a complete and coherent history. Well-nourished well-developed HEENT: Moist mucous membranes, normal sclera with reactive pupils, Neck: supple Respiratory: Lungs are clear to auscultation, no wheezing no rales no rhonchi. Full and symmetrical air movement Cardiac: Regular rate and rhythm no murmurs no bruits Abdomen: Soft, mildly tender in the right lower quadrant with skin changes appreciated, good bowel tones, no flank pain Skin: Vesicular lesions on an erythematous base in a right-sided T12 distribution Neurologic: Grossly neurologically intact with no obvious asymmetries or abnormalities Extremities: No trauma, well perfused Psych: Cooperative, appropriate insight and affect Course Orders Ordered: Discontinued Medications Diphenhydramine HCl (Diphenhydramine 50 Mg/Ml Vial) 50 mg IV NOW ONE Stop: 10/11/21 14:28 Last Admin: 10/11/21 14:36 Dose: Not Given Documented by: ATAYLOR Famotidine (Famotidine 20 Mg/2 Ml Vial) 20 mg IV NOW ONE Stop: 10/11/21 14:28 Last Admin: 10/11/21 14:37 Dose: Not Given Documented by: ATAYLOR Ketorolac Tromethamine (Ketorolac 30 Mg/Ml Vial) 15 mg IV NOW ONE Stop: 10/11/21 14:38 Last Admin: 10/11/21 14:59 Dose: 15 mg Documented by: AUGUSTA Methylprednisolone (Methylprednisolone 125 Mg/2 Ml Vial) 125 mg IV NOW ONE Stop: 10/11/21 14:28 Last Admin: 10/11/21 14:37 Dose: Not Given Documented by: AUGUSTA Medical Decision Making Lab Data Result diagrams: 10/11/21 12:29 10/11/21 13:06 Labs: Lab Results 10/11/21 10/11/21 Range/Units 12: 13:06 WBC 5.1 (4.5-11.0) X10^3/uL RBC 5.47 (4.5-5.9) X10^6/uL Hgb 15.4 (13.5-17.5) g/dL Hct 46.6 (41-53) % MCV 85.1 (80-100) fL MCH 28.1 (26-34) PG MCHC 33.0 (30-36) % RDW 14.7 (11.6-14.8) % Plt Count 155 (150-400) X10^3/uL Neut % (Auto) 72.9 (50-75) % Lymph % (Auto) 15.7 L (25-40) % [place] % (Auto) 8.5 (3-14) % Eos % (Auto) 1.8 L (2-4) % Baso % (Auto) 1.1 (0-2) % Neut # (Auto) 3700 (9909-1845) /uL Lymph # (Auto) 800 L (8354-0180) /uL [place] # (Auto) 400 (0-900) /uL Eos # (Auto) 100 (0-450) /uL Baso # (Auto) 100 (0-100) /uL Sodium 138 (137-145) mmol/L Potassium 4.1 (3.4-5.1) mmol/L Chloride 101 (98-107) mmol/L Carbon Dioxide 30 (22-32) mmol/L BUN 17 (9-20) mg/dL Creatinine 0.94 (0.66-1.25) mg/dL Estimated GFR > 60.0 (>60) mL/min BUN/Creatinine Ratio 18.1 (6-22) Glucose 127 H (80-110) mg/dL Calcium 8.9 (8.4-10.2) mg/dL Total Bilirubin 0.6 (0.2-1.3) mg/dL AST 63 H (17-59) IU/L ALT 55 H (<50) IU/L Alkaline Phosphatase 63 (38-126) U/L Total Protein 7.1 (6.3-8.2) g/dL Albumin 4.1 (3.5-5.0) g/dL Globulin 3.0 (1.7-4.1) g/dL Albumin/Globulin Ratio 1.4 (1.0-2.8) Lipase 145 (23-300) U/L Urine Dip Bedside Urine Glucose Negative Bedside Urine Bilirubin - Negative Bedside Urine Ketone - Negative Urine Specific [place] 1.020 Bedside Urine Occult Blood - Negative Bedside Urine pH 6.5 Bedside Urine Protein +/- 15 Bedside Urine Urobilinogen - Negative Bedside Urine Nitrite - Negative Bedside Urine Leukocytes - Negative Esterase Point of care testing: Urine Dip Bedside Urine Glucose Negative Bedside Urine Bilirubin - Negative Bedside Urine Ketone - Negative Urine Specific [place] 1.020 Bedside Urine Occult Blood - Negative Bedside Urine pH 6.5 Bedside Urine Protein +/- 15 Bedside Urine Urobilinogen - Negative Bedside Urine Nitrite - Negative Bedside Urine Leukocytes - Negative Esterase MDM Narrative Medical decision making narrative: 70-year-old gentleman who presents with right lower quadrant pain who was incredibly frustrated with the fact that he now has to deal with shingles when he otherwise is significantly busy at work and does not have time to hurt. Explained to him that he does not have any evidence of appendicitis or acute intra-abdominal pathology. He is placed on valacyclovir and given lidocaine patches to see if this can help alleviate some of the pain in addition to using ibuprofen and Tylenol. There is no evidence for other systemic infection or need for hospitalization at this time. He is safe for home discharge Discharge Plan Departure Patient Disposition: Home Clinical Impression: [place] Instructions: DI for Shingles Activity Restrictions/Additional Instructions: You have shingles in the right lower quadrant and that is causing the pain that you are experiencing Using 400 mg of ibuprofen (2 [id number]-pvw-qbsobli pills) and 1 Tylenol every 6 hours can be very helpful in controlling pain. For severe pain using to ibu profen and 1 Percocet can be helpful Using antiviral medication for the next 7 days can help reduce the spread and severity Trying lidocaine patches and placing them closer to your back to work along the nerve all the way forward may help with pain as well It is not uncommon to have a mild viral like feeling, aches low-grade fevers generally not feeling well to accompany a shingles outbreak Your blood pressure was significantly elevated today which makes sense with the level of pain that you are currently experiencing. Please make sure you continue to take your enalapril as prescribed. Prescriptions: New valacyclovir 1 gram tablet 1,000 mg PO TID Qty: 21 0RF lidocaine [Lidoderm] 5 % adhesive patch,medicated 1 patch topical DAILY Qty: 15 0RF Rx Instructions: place near the spine at level of the singles rash No Action methylprednisolone 4 mg tablets,dose pack See Rx Instructions PO PER PKG DIR Qty: 21 0RF Rx Instructions: PO PER PKG DIR diclofenac sodium [Voltaren Arthritis Pain] 1 % gel 2 g topical QID Qty: 100 0RF Rx Instructions: apply to wrist or hand; for hand includes palm/fingers/back of hand (DME) Contour Test Strips 0 .Route .MEDSUPPLY Qty: 100 0RF Rx Instructions: Use daily as directed to monitor blood glucose. clobetasol 0.05 % solution 1 applic TOP BID 7 Days Qty: 25 1RF atorvastatin 10 mg tablet 10 mg PO BEDTIME Qty: 90 3RF gabapentin 600 mg tablet 600 mg PO .COMPLEX MDD 5 Qty: 450 3RF Rx Instructions: Take up to 5 times daily for neuropathy tamsulosin [Flomax] 0.4 mg capsule 0.4 mg PO DAILY Qty: 90 3RF metformin 500 mg tablet 125 mg PO QID Qty: 90 3RF enalapril maleate 10 mg tablet 10 mg PO BID Qty: 180 1RF lidocaine 4 % cream 1 applic topical BID PRN (Reason: pain) Qty: 30 1RF Rx Instructions: apply sparingly to affected areas twice daily as needed. triamcinolone acetonide 0.5 % cream 1 applic topical TID Qty: 30 1RF Rx Instructions: Apply sparingly to affected area (after washing w/soap and water) up to 3 times a day hydrocodone-acetaminophen 7.5-325 mg tablet 1 tab PO Q4-6H PRN (Reason: pain) Qty: 30 0RF Rx Instructions: Take 1 tablets every 4-6 hours as needed for pain due to shingles omeprazole 20 mg Capsule,Delayed Release(Dr/Ec) 20 mg PO DAILY 0RF hydroxyzine pamoate 25 mg Capsule 25 mg PO Q4HR PRN (Reason: aggitation, spasms, Nausea) Qty: 60 0RF Referrals: Cas Marin MD [Primary Care Provider] -
== END 2021-10-11 15:22 | disposition home or self-care (01) ==
PROVIDERS: Emergency Provider Emergency Medicine; PCP Family Medicine
DX: B02.9 Zoster without complications (principal)
CPT/HCPCS: 36415; 80053; 81003; 83690; 85025; 93005; 96374; 99283; 99284; J1885

== ENCOUNTER → 2021-12-17 17:23 | Outpatient (CLI) | payer MEDICARE, OTHER, SELFPAY ==
[2021-06-20 10:47] VITALS: BMI 31.9
--- NOTE | 2021-12-17 | DI.MRI.S_ITS ---
PROCEDURE: MR KNEE LT WO CON INDICATIONS: unspecified imternal derangement of left knee TECHNIQUE: Noncontrast sagittal PD fast spin echo and T2 fast spin echo with fat saturation, sagittal 3-D FLASH with fat saturation; coronal T1 spin echo and PD fast spin echo with fat saturation, and axial PD fast spin echo with fat saturation through the knee. COMPARISON: [facility], MR, LOWER EXTREM. JNT WO CONTRAST, 07/02/2008, 8:29. [facility] [place], CR, XR KNEE 4+ VIEWS LEFT, 12/11/2021, 16:25. [facility], MR, MR KNEE LT WO CON, 12/05/2020, 19:37. FINDINGS: Image quality: Excellent. Menisci: There is medial meniscal extrusion. There is oblique tear of the body of the medial meniscus as seen on the last exam. There is a radial tear of the free edge of the posterior horn of the medial meniscus, which is new. Mild intrasubstance degeneration is also noted in the lateral meniscus without discrete tear. The meniscal root ligaments appear intact. Cruciate ligaments: The anterior and posterior cruciate ligaments appear intact. Medial structures: The medial collateral ligament appears intact. The semimembranosus tendon insertions and meniscocapsular junction appear intact. Visualized portions of the pes anserinus tendons appear normal. No abnormal bursal fluid. Lateral structures: The lateral collateral ligament, long and short heads of the biceps femoris tendon appear intact. The popliteus tendon appears normal. Iliotibial band appears normal. Anterior structures: The quadriceps and patellar tendons appear intact. Patellar alignment is normal. No femoral trochlear dysplasia or ventral trochlear prominence. No edema in the infrapatellar fat pad. Prepatellar soft tissue edema. Bones and cartilage: No bone marrow contusions or fractures. There is moderate chondromalacia in the medial femorotibial compartment. There is bone marrow edema in the medial tibial plateau with associated soft tissue edema in the medial aspect of the knee. Mild cartilage fibrillation in patella in the lateral facet of patella. Joint space: There is small knee joint effusion. Moderate-sized multilocular Love's cyst. Normal appearing synovial plicae are incidentally noted. IMPRESSION: 1. Medial meniscal extrusion. There is prominent oblique tear of the body of the medial meniscus as seen on the last exam. A new radial tear is noted in the free edge of the posterior horn of the medial meniscus. 2. Intrasubstance degeneration of the lateral meniscus without discrete tear. 3. Moderate chondromalacia in the medial femorotibial compartment and mild chondromalacia patella. 4. There is bone marrow edema in the medial tibial plateau with associated soft tissue edema in the medial aspect of the knee, consistent with bone and soft tissue contusions. 5. Small knee joint effusion. 6. Moderate-sized multilocular Love's cyst. Dictated by: Piero Che M.D. on 12/18/2021 at 8:12 Approved by: Piero Che M.D. on 12/18/2021 at 8:32
== END ==
PROVIDERS: PCP Family Medicine; Referring Provider Physician Assistant; Visit Provider Physician Assistant
DX: M23.92 Unspecified internal derangement of left knee (principal); S83.242A Other tear of medial meniscus, current injury, left knee, initial encounter; M22.42 Chondromalacia patellae, left knee; M25.462 Effusion, left knee; M71.22 Synovial cyst of popliteal space [Baker], left knee
CPT/HCPCS: 73721

== ENCOUNTER → 2022-01-07 09:14 | Outpatient (CLI) | payer MEDICARE, OTHER, SELFPAY ==
[2021-06-20 10:47] VITALS: BMI 31.9
--- NOTE | 2022-01-07 11:04 | DIAB.MNT ---
Addendum entered by Aleah Farah 01/07/22 11:26: checks feet regularly. Has neuropathy, reported from multiple back surgeries. 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 Reports having DM since Sep 2015, subsequent spinal surgery per report. Endorses FH of DM with maternal grandmother. States his , Dorinda, passed three years ago. Since that time he has struggled to eat nutritiously. Reports she often made meals and provided vegetables for him to take to work. Now, he often skips meals. No pattern or schedule reportedly. Then eats large dinner portions and middle of the night snack. Has a son with PDM that is interested in following his diet changes. Reports h/o wt loss in 2015 from 214# to 171# from lifestyle changes. Pella good at that wt. Was off Metformin. Then gained most of the weight back. Now taking 500mg Metformin cut into quarters through the day, d/t diarrhea. loves to eat Has 16oz water bottle he takes to work. Limited water intake otherwise. Has 1L water bottle at home. 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 Originally from [place]. Diet Recall: 2am: sandwich or leftovers B: nothing or 2-3 eggs, 2 slices villanueva, 2-3c hashbrowns with ketchup and salt substitute. L: nothing or fastfood burger with large fries and diet soda D: 7-8c pasta with meat and sauce, no veg Beverages: 16oz water, 2c coffee with Sf creamer and stevia, diet cola +/- tomato juice Anthropometrics: Ht: 67.5 Wt: 207# (211# with shoes,etc) Physical Activity: No program. Walks quite a bit for work reportedly. Self-Monitoring Blood Glucose: Not discussed today. Diabetes Medications: 500mg Metformin Pertinent Labs: HgA1c: 07/2021 6.6% 01/2021 6.8% 02/2020 6.5% 04/2019 6.2% Past Medical History: (Last Reviewed 10/11/21 @ 07:41 by Edita Walls PA-C) Anal fissure (02/2018) Anal fissure Anxiety R/T inability to work; anxious to return Back pain Benign prostatic hyperplasia (01/02/15) BPH (benign prostatic hyperplasia) Cellulitis of lower extremity Controlled type 2 diabetes mellitus without complication (04/30/16) COPD (chronic obstructive pulmonary disease) Cramps of lower extremity (01/02/15) Degenerative arthritis of lumbar spine Degenerative disc disease Essential hypertension GERD (gastroesophageal reflux disease) H/O colonoscopy (07/08/15) History of lumbar fusion (02/01/19) L3-5 TLIF-Dr. Avila @ Hx of hand surgery (~2004) Bilateral Hx of inguinal hernia surgery (1996) Bilateral Hx of microdiscectomy (07/01/18) Left L3-4 Inflamed internal hemorrhoid (02/2018) Left sided sciatica Lumbar disc herniation with radiculopathy Osteoarthritis of lower back (09/19/14) Peripheral neuropathy Pneumonia Prepatellar bursitis of right knee Spinal stenosis Status post epidural steroid injection Tear of rotator cuff (09/19/14) Nutrition Rx: Plate Method Nutrition Diagnosis: - Excessive CHO intake r/t long periods of time without eating resulting in excessive hunger aeb diet recall and pt report - Nutrition and food related knowledge deficit r/t no prior MNT or diabetes ed aeb pt report - Inadequate fiber intake r/t no fruit, vegetable, or whole grain intake aeb diet recall - Inadequate water intake r/t nutrition knowledge deficit aeb diet recall Intervention: This participant was very receptive. Provided appropriate educational handouts. Discussed the following topics: Completed intake assessment. Discussed barriers to care. HgA1c history and his goals for DM Plate Method Metformin SE and management of diarrhea Recommended servings for carbohydrates at meals in brief Brainstormed ways to increase vegetable intake Made a grocery list with fruits and vegetables he enjoys Discussed strategies around increasing water intake Importance of consistent intake to prevent large intake in evening Created SMART goals for patient self-care and success. Goals: Eat breakfast every morning Take vegetables to work Take 1L water bottle to work Follow-up: DONNA JULIEN follow-up in 3 weeks Aleah Farah RDN, ANAYA Certified [facility] [employer] P: [phone] Thank you for this referral
== END ==
PROVIDERS: PCP Family Medicine; Referring Provider Family Medicine; Visit Provider Family Medicine
DX: E11.42 Type 2 diabetes mellitus with diabetic polyneuropathy (principal); Z79.84 Long term (current) use of oral hypoglycemic drugs; Z71.3 Dietary counseling and surveillance
CPT/HCPCS: 97802

== ENCOUNTER → 2022-01-15 07:39 | Outpatient (CLI) | payer MEDICARE, OTHER, SELFPAY ==
[2021-06-20 10:47] VITALS: BMI 31.9
[2022-01-15 08:47] LABS: Add Manual Diff / Slide Review NO; Basophils Absolute Auto 100 /uL (0-100); Basophils Percent Auto 1.3 % (0-2); Eosinophils Absolute Auto 100 /uL (0-450); Eosinophils Percent Auto 2.9 % (2-4); Hematocrit 43.6 % (41-53); Hemoglobin 14.8 g/dL (13.5-17.5); Lymphocytes Absolute Auto 1000 /uL (1100-4500); Lymphocytes Percent Auto 22.8 % (25-40); Mean Corpuscular Hemoglobin 29.1 PG (26-34); Mean Corpuscular Volume 85.6 fL (80-100); Monocytes Absolute Auto 400 /uL (0-900); Monocytes Percent Auto 8.1 % (3-14); Neutrophils Absolute Auto 2800 /uL (1500-7000); Neutrophils Percent Auto 64.9 % (50-75); Platelet Count 168 X10^3/uL (150-400); Red Cell Distribution Width 14.3 % (11.6-14.8); White Blood Cell Count 4.4 X10^3/uL (4.5-11.0)
[2022-01-15 08:55] LABS: INR 1.1 (0.9-1.3)
[2022-01-15 08:57] LABS: PTT Partial Thromboplastin Tim 40 SECONDS (26.4-36.2)
[2022-01-15 09:01] LABS: BUN Creatinine Ratio 17.3 (6-22); Blood Urea Nitrogen 18 mg/dL (9-20); Calcium 9.1 mg/dL (8.4-10.2); Carbon Dioxide 27 mmol/L (22-32); Chloride 101 mmol/L (98-107); Estimated Glomerular Filt Rate > 60 mL/min (>60); Glucose 170 mg/dL (80-110); HEMOLYSIS < 15 (0-50); Potassium 4.8 mmol/L (3.4-5.1); Sodium 139 mmol/L (137-145)
[2022-01-15 09:04] LABS: Hemoglobin A1C% w Est Avg Glu 7.6 % (4.0-6.0)
== END ==
PROVIDERS: PCP Family Medicine; Referring Provider Orthopaedic Surgery; Visit Provider Orthopaedic Surgery
DX: Z01.818 Encounter for other preprocedural examination (principal); Z51.81 Encounter for therapeutic drug level monitoring; M25.562 Pain in left knee; Z01.812 Encounter for preprocedural laboratory examination; I10 Essential (primary) hypertension; E11.65 Type 2 diabetes mellitus with hyperglycemia
CPT/HCPCS: 36415; 80048; 83036; 85025; 85610; 85730; 93005; 93010

== ENCOUNTER → 2022-03-21 07:51 | Outpatient (CLI) | payer MEDICARE, OTHER, SELFPAY ==
[2021-06-20 10:47] VITALS: BMI 31.9
[2022-03-21 11:21] LABS: COVID19 -Nasal RAPID Negative (Negative)
== END ==
PROVIDERS: PCP Family Medicine; Visit Provider Physician Assistant
DX: Z20.822 Contact with and (suspected) exposure to COVID-19 (principal)
CPT/HCPCS: 87635

== ENCOUNTER → 2022-03-21 07:58 | Outpatient (CLI) | payer MEDICARE, OTHER, SELFPAY ==
[2021-06-20 10:47] VITALS: BMI 31.9
--- NOTE | 2022-03-21 08:02 | DI.RAD.S_ITS ---
PROCEDURE: XR CHEST 2V INDICATIONS: Cough TECHNIQUE: 2 views of the chest were acquired. COMPARISON: [facility], CR, XR CHEST 1V, 05/11/2021, 9:01. FINDINGS: Surgical changes and devices: None. Lungs and pleura: Lungs are clear. No pleural effusions or pneumothorax. Mediastinum: Mediastinal contours are normal. Heart size is normal. Bones and chest wall: No suspicious bony abnormalities. Soft tissues appear unremarkable. IMPRESSION: No acute cardiopulmonary abnormality. Dictated by: Gama Mayen M.D. on 03/21/2022 at 8:32 Approved by: Gama Mayen M.D. on 03/21/2022 at 8:33
== END ==
PROVIDERS: PCP Family Medicine; Referring Provider Nurse Practitioner Family; Visit Provider Nurse Practitioner Family
DX: R05.9 Cough, unspecified (principal); Z20.822 Contact with and (suspected) exposure to COVID-19
CPT/HCPCS: 71046; 87635

== ENCOUNTER 2022-04-13 01:50 | Emergency (ER) | payer MEDICARE, OTHER, SELFPAY ==
[2021-06-20 10:47] VITALS: BMI 31.9
[2022-04-13 01:59] VITALS: BP 141/65; PULSE 75; RESP 18; O2SAT 95; BMI 32.8
--- NOTE | 2022-04-13 02:11 | ED.EXTPRO ---
HPI - Extremity Problem General Chief complaint: Extremity Problem,Nontraumatic Stated complaint: Leg cramps Time Seen by Provider: 04/13/22 02:03 Mode of arrival: Ambulatory History of Present Illness HPI Narrative: Patient here for bilateral thigh and calf cramping. Patient states this has been an issue for years. Gets it at least weekly. Takes medicines for leg cramps but it did not help tonight. Takes gabapentin as well. Patient states he has been on a motorcycle ride for the past couple days. 15 hours a day. Has been hot and sweaty. Patient drove self here today. History diabetic neuropathy of the legs since 2016. In 2014 he had complication with laminectomy that cause lumbar radiculopathy to his legs. Related Data Previous Rx's Medication Instructions Recorded Contour Test Strips #100 ea 12/25/19 clobetasol 0.05 % scalp solution 1 applic topical BID 1 week #25 mL 09/16/20 hydroxyzine pamoate 25 mg capsule 25 mg PO Q4HR PRN aggitation, 06/23/21 spasms, Nausea #60 caps gabapentin 600 mg tablet 600 mg PO .COMPLEX #450 tabs 08/05/21 diclofenac sodium 1 % topical gel 2 g topical QID #100 grams 08/14/21 (Voltaren Arthritis Pain) triamcinolone acetonide 0.5 % 1 applic topical TID #30 grams 10/21/21 topical cream hydrocodone 7.5 mg-acetaminophen 1 tab PO Q4-6H PRN pain #30 tabs 12/04/21 325 mg tablet enalapril maleate 10 mg tablet 10 mg PO BID #180 tabs 03/03/22 amlodipine 5 mg tablet 5 mg PO DAILY #30 tabs 03/31/22 atorvastatin 10 mg tablet 10 mg PO BEDTIME #90 tabs 04/08/22 metformin 500 mg tablet 125 mg PO QID #90 tabs 04/08/22 tamsulosin 0.4 mg capsule (Flomax) 0.4 mg PO DAILY #90 caps 04/08/22 Allergies Allergy/AdvReac Type Severity Reaction Status Date / Time Sulfa (Sulfonamide Allergy Severe BLISTER, Verified 03/20/22 08:20 Antibiotics) skin [SULFA (SULFONAMIDE comes off ANTIBIOTICS)] my legs latex [LATEX] Allergy Mild SKIN Verified 03/20/22 08:20 IRRITATION amoxicillin [AMOXICILLIN] AdvReac Severe Makes my Verified 03/20/22 08:20 skin crawl clavulanic acid AdvReac Severe AUGMENTIN/V Verified 03/20/22 08:20 [CLAVULANIC ACID] OMITING Penicillins [PENICILLINS] AdvReac Severe NAUSEA/VOMI Verified 03/20/22 08:20 TING ciprofloxacin [CIPROFLOXACIN] AdvReac Intermediate MADE PT Verified 03/20/22 08:20 FEEL RUMMY/NAUSEA erythromycin base AdvReac Intermediate SKIN Verified 03/20/22 08:20 [ERYTHROMYCIN BASE] CRAWLING Review of Systems Review of Systems Narrative: GENERAL: Denies chills, fatigue, malaise, fever, sweats. HEENT: Denies sinus pain, ear pain, sore throat RESPIRATORY: Denies dyspnea, cough CARDIOVASCULAR: Denies chest pain, palpitations GASTROINTESTINAL: Denies nausea, vomiting, abdominal pain : Denies dysuria, frequency, hematuria MUSCULOSKELETAL: Positive for muscle negative bony pain SKIN: Denies rash, skin lesions NEUROLOGIC: Denies weakness, numbness ROS Unobtainable: All systems reviewed & are unremarkable except as noted in HPI and below Patient History Medical History Anal fissure (02/2018) Anal fissure Anxiety Back pain Benign prostatic hyperplasia (01/02/15) BPH (benign prostatic hyperplasia) Cellulitis of lower extremity Controlled type 2 diabetes mellitus without complication (04/30/16) COPD (chronic obstructive pulmonary disease) Cramps of lower extremity (01/02/15) Degenerative arthritis of lumbar spine Degenerative disc disease Essential hypertension GERD (gastroesophageal reflux disease) Inflamed internal hemorrhoid (02/2018) Left sided sciatica Lumbar disc herniation with radiculopathy Osteoarthritis of lower back (09/19/14) Peripheral neuropathy Pneumonia Prepatellar bursitis of right knee Spinal stenosis Tear of rotator cuff (09/19/14) Surgical History H/O colonoscopy (07/08/15) H/O sinus surgery (2003) History of elbow surgery History of lumbar fusion (02/01/19) History of sebaceous cyst (2000) Hx of hand surgery (~2004) Hx of inguinal hernia surgery (1996) Hx of microdiscectomy (10/19/18) Status post epidural steroid injection Status post laminectomy Family History Father [facility] (myocardial infarction) Grandmother Diabetes mellitus Mother Lymphoma Grandfather Colon cancer Sister Bladder cancer Social History marital status: (11/01/18) household members: none Smoking Status: Former smoker alcohol intake: current Smoking Status: Former smoker alcohol intake frequency: holidays/special occasions only Alcohol type: beer Substance Use Type: marijuana Exam Narrative Exam Narrative: GENERAL: in no distress, not toxic not dyspneic, shoes and socks removed. Pants off HEAD: Normocephalic. EYES: Pupils equal round No scleral icterus. EXTREMITIES: No gross deformities. Skin warm soft and pink. Has occasional cramping when he tries to stand and walk in the room. Calves nontender. Soft calves. Strong pedal pulses. Feet warm soft and pink. No palpable cords. Light touch intact to feet and toes. NEURO: AOx4. SKIN: Warm and dry PSYCH: Not anxious, is cooperative Initial Vital Signs Initial Vital Signs: Vital Signs Pulse Rate 75 04/13/22 01:59 Respiratory Rate 18 04/13/22 01:59 Blood Pressure 141/65 H 04/13/22 01:59 Pulse Oximetry 95 04/13/22 01:59 Oxygen Delivery Method 04/13/22 01:59 Course Course Course Narrative: No new issues during course of stay Orders Ordered: ED Orders 04/13/22 02:27 CBC Auto Diff [Complete Blood Count AUTO DIFF] Stat CMP [Comprehensive Metabolic Panel] Stat Magnesium Stat 04/13/22 02:56 US periph venous low extrem bi Stat Discontinued Medications Sodium Chloride (Normal Saline 0.9%) 1,000 mls @ 1,000 mls/hr IV BOLUS ONE Stop: 04/13/22 03:09 Last Admin: 04/13/22 02:26 Dose: 1,000 mls/hr Documented By: OW Reevaluation(s) Reevaluation #1: Patient states like pains are gone. Feels much better. Had IV fluids here. Preliminary results for ultrasound of the legs are negative for DVT. He does not want to wait for the final results. Reviewed with patient at length regarding the leg cramps and neuropathy. He does have history of laminectomy in 2015 that cause radicular pain to his legs. His last MRI was 2 years ago. He sees Ortho Spine Dr. Avila. He had 2 days of writing more cycle with 10 hours on the 1st day and 14 hours on the 2nd day. He agrees he should be taking more frequent breaks off the motorcycle on these long trips. Combination of diabetic neuropathy of the legs since 2015 with his complicated laminectomy surgery that left him with radiculopathy may be getting worse. He may need medication changes for his leg cramps. At this time he feels much better and he desires discharge home. I did review renal function changes with him on the blood work. Needs to follow up with his primary care for these changes. Likely prerenal with being on the more cycle in the very high heat we have had in the past 2 days. 90+ degrees heat. This may have contributed to the leg cramps Time: 04:38 Vital Signs Vital signs: Vital Signs - 8 hr 04/13/22 01:59 04/13/22 04:48 Pulse Rate 75 67 Respiratory Rate 18 97 H Blood Pressure 141/65 H 156/67 H Pulse Oximetry 95 Oxygen Delivery Method Room Air Room Air MDM - Extremity (Nontraumatic) Differential Diagnosis Differential diagnosis: Likely superficial thrombophlebitis, deep vein thrombosis of lower extremity and other (Lumbar radiculopathy/diabetic neuropathy/electrolyte imbalance) Lab Data Result diagrams: 04/13/22 02:27 04/13/22 02:27 Labs: Lab Results 04/13/22 04/13/22 Range/Units 02:27 02:27 WBC 6.7 (4.5-11.0) X10^3/uL RBC 4.76 (4.5-5.9) X10^6/uL Hgb 13.5 (13.5-17.5) g/dL Hct 41.1 (41-53) % MCV 86.5 (80-100) fL MCH 28.4 (26-34) PG MCHC 32.8 (30-36) % RDW 14.2 (11.6-14.8) % Plt Count 167 (150-400) X10^3/uL Neut % (Auto) 69.5 (50-75) % Lymph % (Auto) 16.8 L (25-40) % [place] % (Auto) 9.5 (3-14) % Eos % (Auto) 2.8 (2-4) % Baso % (Auto) 1.4 (0-2) % Neut # (Auto) 4600 (5534-6827) /uL Lymph # (Auto) 1100 (8406-2161) /uL [place] # (Auto) 600 (0-900) /uL Eos # (Auto) 200 (0-450) /uL Baso # (Auto) 100 (0-100) /uL Sodium 134 L (137-145) mmol/L Potassium 5.1 (3.4-5.1) mmol/L Chloride 99 (98-107) mmol/L Carbon Dioxide 27 (22-32) mmol/L BUN 53 H (9-20) mg/dL Creatinine 1.94 H (0.66-1.25) mg/dL Estimated GFR 36 L (>60) mL/min BUN/Creatinine Ratio 27.3 H (6-22) Glucose 191 H (80-110) mg/dL Calcium 8.9 (8.4-10.2) mg/dL Magnesium 1.9 (1.6-2.3) mg/dL Total Bilirubin 0.3 (0.2-1.3) mg/dL AST 61 H (17-59) IU/L ALT 49 (<50) IU/L Alkaline Phosphatase 62 (38-126) U/L Total Protein 6.7 (6.3-8.2) g/dL Albumin 4.0 (3.5-5.0) g/dL Globulin 2.7 (1.7-4.1) g/dL Albumin/Globulin Ratio 1.5 (1.0-2.8) Imaging Data US - DVT: Radiologist's Impression: Impression negative for bilateral lower extremity DVT. 5 cm left Love cyst MDM Narrative Medical decision making narrative: Appropriate for discharge home. Reviewed with patient his symptoms may be worsening with lumbar radiculopathy and diabetic neuropathy. Renal function noted with changes, being in the high heat likely pre renal/dehydration. His recent long motorcycle 2 day trip may have exacerbated these problems. Otherwise patient states he has been pain-free since being here. [place] better with IV fluids. Exam and imaging and laboratory studies are reassuring. Return precautions reviewed with him Discharge Plan Departure Patient Disposition: Home Clinical Impression: Diabetic neuropathy Instructions: DI for Diabetic Neuropathy Activity Restrictions/Additional Instructions: See family doctor within a week for re-evaluation appear neuropathy. May continue home medications. Return if worse if any questions or concerns. Prescriptions: No Action amlodipine 5 mg tablet 5 mg PO DAILY Qty: 30 1RF Rx Instructions: Take one tablet once daily with Enalapril (either a.m. or p.m. Enalapril) diclofenac sodium [Voltaren Arthritis Pain] 1 % gel 2 g topical QID Qty: 100 0RF Rx Instructions: apply to wrist or hand; for hand includes palm/fingers/back of hand (DME) Contour Test Strips 0 .Route .MEDSUPPLY Qty: 100 0RF Rx Instructions: Use daily as directed to monitor blood glucose. clobetasol 0.05 % solution 1 applic TOP BID 7 Days Qty: 25 1RF gabapentin 600 mg tablet 600 mg PO .COMPLEX MDD 5 Qty: 450 3RF Rx Instructions: Take up to 5 times daily for neuropathy triamcinolone acetonide 0.5 % cream 1 applic topical TID Qty: 30 1RF Rx Instructions: Apply sparingly to affected area (after washing w/soap and water) up to 3 times a day hydrocodone-acetaminophen 7.5-325 mg tablet 1 tab PO Q4-6H PRN (Reason: pain) Qty: 30 0RF Rx Instructions: Take 1 tablets every 4-6 hours as needed for pain due to shingles enalapril maleate 10 mg tablet 10 mg PO BID Qty: 180 1RF tamsulosin [Flomax] 0.4 mg capsule 0.4 mg PO DAILY Qty: 90 3RF metformin 500 mg tablet 125 mg PO QID Qty: 90 3RF atorvastatin 10 mg tablet 10 mg PO BEDTIME Qty: 90 3RF hydroxyzine pamoate 25 mg Capsule 25 mg PO Q4HR PRN (Reason: aggitation, spasms, Nausea) Qty: 60 0RF Referrals: Cas Marin MD [Primary Care Provider] - Visit Report Forms: Patient Portal/API
[2022-04-13] MEDS: SODIUM CHLORIDE 0.9% 1,000 ML 1000 ML IV (02:26)
--- NOTE | 2022-04-13 02:32 | PC.NURSE ---
Pt reports bilateral leg cramping. Pt states that he has gotten this type of leg cramping before while on a motorcycle trip but this time it is worse. Pt has just completed motorcycling 600 miles in two days and reports having a decreased urien output.
[2022-04-13 02:40] LABS: Add Manual Diff / Slide Review NO; Basophils Absolute Auto 100 /uL (0-100); Basophils Percent Auto 1.4 % (0-2); Eosinophils Absolute Auto 200 /uL (0-450); Eosinophils Percent Auto 2.8 % (2-4); Hematocrit 41.1 % (41-53); Hemoglobin 13.5 g/dL (13.5-17.5); Lymphocytes Absolute Auto 1100 /uL (1100-4500); Lymphocytes Percent Auto 16.8 % (25-40); Mean Corpuscular HGB Conc 32.8 % (30-36); Mean Corpuscular Hemoglobin 28.4 PG (26-34); Mean Corpuscular Volume 86.5 fL (80-100); Monocytes Absolute Auto 600 /uL (0-900); Monocytes Percent Auto 9.5 % (3-14); Neutrophils Absolute Auto 4600 /uL (1500-7000); Neutrophils Percent Auto 69.5 % (50-75); Platelet Count 167 X10^3/uL (150-400); Red Blood Cell Count 4.76 X10^6/uL (4.5-5.9); Red Cell Distribution Width 14.2 % (11.6-14.8); White Blood Cell Count 6.7 X10^3/uL (4.5-11.0)
[2022-04-13 02:45] LABS: Alanine Aminotransferase 49 IU/L (<50); Albumin Globulin Ratio 1.5 (1.0-2.8); Alkaline Phosphatase 62 U/L (38-126); Aspartate Aminotransferase 61 IU/L (17-59); BUN Creatinine Ratio 27.3 (6-22); Bilirubin Total 0.3 mg/dL (0.2-1.3); Blood Urea Nitrogen 53 mg/dL (9-20); Calcium 8.9 mg/dL (8.4-10.2); Carbon Dioxide 27 mmol/L (22-32); Chloride 99 mmol/L (98-107); Estimated Glomerular Filt Rate 36 mL/min (>60); Globulin 2.7 g/dL (1.7-4.1); Glucose 191 mg/dL (80-110); HEMOLYSIS < 15 (0-50); Magnesium 1.9 mg/dL (1.6-2.3); Potassium 5.1 mmol/L (3.4-5.1); Sodium 134 mmol/L (137-145); Total Protein 6.7 g/dL (6.3-8.2)
--- NOTE | 2022-04-13 02:56 | DI.US.S_ITS ---
PROCEDURE: US PERIPH VENOUS LOW EXTREM BI INDICATIONS: LEG PAIN TECHNIQUE: Real-time imaging, as well as color and pulse Doppler interrogation, were performed of the deep veins of both legs from the inguinal ligament to the popliteal fossa. COMPARISON: None. FINDINGS: Right: The common femoral, femoral and popliteal veins are normally compressible, and free of intraluminal thrombus. Color and pulse Doppler demonstrate normal phasic intravascular flow. There is normal augmentation response to distal compression maneuver. Left: The common femoral, femoral and popliteal veins are normally compressible, and free of intraluminal thrombus. Color and pulse Doppler demonstrate normal phasic intravascular flow. There is normal augmentation response to distal compression maneuver. 5.0 centimeter left popliteal cyst. IMPRESSION: No evidence of deep vein thrombosis involving either the right or left lower extremities. Large left popliteal cyst. Dictated by: Mandy Vital MD, PhD on 04/13/2022 at 8:03 Approved by: Mandy Vital MD, PhD on 04/13/2022 at 8:03
[2022-04-13 04:48] VITALS: BP 156/67; PULSE 67; RESP 97
== END 2022-04-13 04:49 | disposition home or self-care (01) ==
PROVIDERS: Emergency Provider Emergency Medicine; PCP Family Medicine
DX: E11.40 Type 2 diabetes mellitus with diabetic neuropathy, unspecified (principal)
CPT/HCPCS: 36415; 80053; 83735; 85025; 93970; 96360; 96361; 99284

== ENCOUNTER → 2022-04-15 07:00 | Outpatient (CLI) | payer MEDICARE, OTHER, SELFPAY ==
[2021-06-20 10:47] VITALS: BMI 31.9
[2022-04-15 08:38] LABS: Alanine Aminotransferase 55 IU/L (<50); Albumin 4.3 g/dL (3.5-5.0); Albumin Globulin Ratio 1.5 (1.0-2.8); Alkaline Phosphatase 75 U/L (38-126); Aspartate Aminotransferase 60 IU/L (17-59); BUN Creatinine Ratio 23.9 (6-22); Bilirubin Total 0.4 mg/dL (0.2-1.3); Blood Urea Nitrogen 27 mg/dL (9-20); Calcium 9.5 mg/dL (8.4-10.2); Carbon Dioxide 30 mmol/L (22-32); Chloride 102 mmol/L (98-107); Estimated Glomerular Filt Rate > 60 mL/min (>60); Globulin 2.9 g/dL (1.7-4.1); Glucose 139 mg/dL (80-110); HEMOLYSIS < 15 (0-50); Potassium 5.1 mmol/L (3.4-5.1); Sodium 138 mmol/L (137-145); Total Protein 7.2 g/dL (6.3-8.2)
[2022-04-15 09:45] LABS: Appearance Urine UA CLEAR; Bilirubin Urine UA NEGATIVE (NEGATIVE); Color Urine UA YELLOW; Glucose Urine UA NEGATIVE (Negative); Ketones Urine UA NEGATIVE (NEGATIVE); Leukocyte Esterase Urine UA NEGATIVE (NEGATIVE); Nitrite Urine UA NEGATIVE (Negative); Occult Blood Urine UA TRACE-LYSED (Negative); Protein Urine UA NEGATIVE (Negative); Urobilinogen Urine UA 0.2 E.U./dL (0.2); pH Urine UA 5.5 (4.5-8.0)
== END ==
PROVIDERS: PCP Family Medicine; Referring Provider Family Medicine; Visit Provider Family Medicine
DX: I10 Essential (primary) hypertension (principal); Z87.448 Personal history of other diseases of urinary system
CPT/HCPCS: 36415; 80053; 81003

== ENCOUNTER 2022-04-21 18:09 | Emergency (ER) | payer MEDICARE, OTHER, SELFPAY ==
[2021-06-20 10:47] VITALS: BMI 31.9
[2022-04-21] VITALS (8 sets, daily range): BP systolic 187–217; BP diastolic 81–97; PULSE 54–73; RESP 16; TEMP 36.1; O2SAT 96–97; BMI 32.8
--- NOTE | 2022-04-21 18:23 | DI.CT.S_ITS ---
PROCEDURE: CT CHEST ABD PEL WO CON INDICATIONS: trauma 2 weeks ago,right flank pain TECHNIQUE: After the administration of oral contrast, 5 mm thick sections acquired from the lung apices to the symphysis pubis. 5 mm thick coronal and sagittal reformats acquired, with additional 7 mm coronal MIP reformats through the lungs. For radiation dose reduction, the following was used: automated exposure control, adjustment of mA and/or kV according to patient size. COMPARISON: None. FINDINGS: Image quality: Excellent. CHEST: Lungs and pleura: Scattered atelectasis/scarring. No pneumothorax. Small pulmonary nodules, for example at the right lung apex series 8, image 13. Calcified granulomas do not require dedicated follow-up. No pleural effusion or pneumothorax. Mediastinum: Heart size is normal. Mitral annular calcifications. No pericardial effusion. No mediastinal adenopathy by CT size criteria. Thoracic aorta and central pulmonary arteries are normal in size. Esophagus is normal in caliber. No hiatal hernia. Chest wall: No axillary or supraclavicular adenopathy by size criteria. Thyroid gland within normal limits ABDOMEN: Evaluation of solid organs is limited without intravenous contrast. Solid organs: Liver is normal in size. Suspected hepatic steatosis. Gallbladder unremarkable. Pancreas is normal in contours. Spleen is normal in size. No adrenal nodules. Both kidneys are normal in size, without hydronephrosis or nephrolithiasis. No perinephric hematoma. Peritoneum and bowel: Colonic diverticula. No pelvic free fluid. Nodes and vessels: Mild aortoiliac atherosclerotic calcifications. No lymphadenopathy. Miscellaneous: No ventral hernias. PELVIS: Genitourinary: Borderline prostatomegaly Miscellaneous: No inguinal hernias or adenopathy. Bones: No suspicious osseous lesion. Scattered degenerative changes. Lumbar posterior fusion hardware. Nondisplaced fracture of the right 11th rib. IMPRESSION: Nondisplaced fracture of the right 11th rib. Within the limits of noncontrast CT, no acute traumatic injury to the chest, abdomen, or pelvis otherwise. No pneumothorax. Other incidental findings above. Tiny pulmonary nodules can be followed in [address] for high risk patients. Dictated by: Telly Maldonado M.D. on 04/21/2022 at 18:55 Approved by: Telly Maldonado M.D. on 04/21/2022 at 19:04
[2022-04-21] MEDS: HYDROCODONE/ACET 5/325 TABLET 1 TAB PO ×2 (22:22→23:08)
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
[2022-04-21] MEDS: HYDROCODONE/ACET 5/325 PREPACK 1 BOTTLE MISC (23:08)
[2022-04-21] MEDS: ONDANSETRON 4 MG ODT PREPACK 1 BOTTLE MISC (23:08)
[2022-04-21] MEDS: KETOROLAC 30 MG/ML VIAL IM (23:09)
== END 2022-04-21 23:29 | disposition home or self-care (01) ==
PROVIDERS: Emergency Provider Emergency Medicine; PCP Family Medicine
DX: S22.31XA Fracture of one rib, right side, initial encounter for closed fracture (principal); W01.198A Fall on same level from slipping, tripping and stumbling with subsequent striking against other object, initial encounter
CPT/HCPCS: 71250; 74176; 96372; 99283; J1885

== ENCOUNTER 2022-05-07 20:41 | Emergency (ER) | payer MEDICARE, OTHER, SELFPAY ==
[2021-06-20 10:47] VITALS: BMI 31.9
[2022-05-07] VITALS (8 sets, daily range): BP systolic 119–205; BP diastolic 56–84; PULSE 58–89; RESP 14–26; TEMP 37.3; O2SAT 92–94; BMI 31.9
--- NOTE | 2022-05-07 20:46 | DI.RAD.S_ITS ---
PROCEDURE: XR CHEST 1V INDICATIONS: cough/soa/covid + TECHNIQUE: One view of the chest was acquired. COMPARISON: [facility], CR, XR CHEST 2V, 03/21/2022, 7:49. FINDINGS: Surgical changes and devices: None. Lungs and pleura: Lungs are clear. No pleural effusions or pneumothorax. Mediastinum: Mediastinal contours appear normal. Heart size is normal. Bones and chest wall: No suspicious bony lesions. Overlying soft tissues appear unremarkable. IMPRESSION: No acute cardiopulmonary disease. Dictated by: Chelsey Potts M.D. on 05/07/2022 at 21:59 Approved by: Chelsey Potts M.D. on 05/07/2022 at 21:59
--- NOTE | 2022-05-07 20:48 | ED.URI ---
HPI - URI/Sore Throat General Chief Complaint: Shortness of Breath/Dyspnea Stated Complaint: Covid+ Time Seen by Provider: 05/07/22 20:54 History of Present Illness HPI Narrative: Patient brought in by ambulance from home for fever body aches chills cough. Patient is COVID vaccinated. History of COPD. As well as diabetes. Patient in no distress. No hypoxia. Speaking full sentences. Has had nausea but no vomiting. No diarrhea. Tested positive at home for COVID last night. He did contact his primary care today Dr. Marin. No medications were prescribed Related Data Home Medications Medication Instructions Recorded Confirmed metformin 500 mg tablet 125 mg PO QID 05/07/22 05/07/22 Previous Rx's Medication Instructions Recorded Contour Test Strips #100 ea 12/25/19 clobetasol 0.05 % scalp solution 1 applic topical BID 1 week #25 mL 09/16/20 hydroxyzine pamoate 25 mg capsule 25 mg PO Q4HR PRN aggitation, 06/23/21 spasms, Nausea #60 caps gabapentin 600 mg tablet 600 mg PO .COMPLEX #450 tabs 08/05/21 diclofenac sodium 1 % topical gel 2 g topical QID #100 grams 08/14/21 (Voltaren Arthritis Pain) triamcinolone acetonide 0.5 % 1 applic topical TID #30 grams 10/21/21 topical cream enalapril maleate 10 mg tablet 10 mg PO BID #180 tabs 03/03/22 amlodipine 5 mg tablet 5 mg PO DAILY #30 tabs 03/31/22 atorvastatin 10 mg tablet 10 mg PO BEDTIME #90 tabs 04/08/22 metformin 500 mg tablet 125 mg PO QID #90 tabs 04/08/22 tamsulosin 0.4 mg capsule (Flomax) 0.4 mg PO DAILY #90 caps 04/08/22 hydrocodone 7.5 mg-acetaminophen 1 tab PO Q4-6H PRN pain #30 tabs 04/23/22 325 mg tablet Allergies Allergy/AdvReac Type Severity Reaction Status Date / Time Sulfa (Sulfonamide Allergy Severe BLISTER, Verified 04/29/22 15:45 Antibiotics) skin [SULFA (SULFONAMIDE comes off ANTIBIOTICS)] my legs latex [LATEX] Allergy Mild SKIN Verified 04/29/22 15:45 IRRITATION amoxicillin [AMOXICILLIN] AdvReac Severe Makes my Verified 04/29/22 15:45 skin crawl clavulanic acid AdvReac Severe AUGMENTIN/V Verified 04/29/22 15:45 [CLAVULANIC ACID] OMITING Penicillins [PENICILLINS] AdvReac Severe NAUSEA/VOMI Verified 04/29/22 15:45 TING ciprofloxacin [CIPROFLOXACIN] AdvReac Intermediate MADE PT Verified 04/29/22 15:45 FEEL RUMMY/NAUSEA erythromycin base AdvReac Intermediate SKIN Verified 04/29/22 15:45 [ERYTHROMYCIN BASE] CRAWLING Review of Systems Review of Systems Narrative: GENERAL: Positive for chills, fatigue, malaise, fever, sweats. HEENT: Denies sinus pain, ear pain, sore throat RESPIRATORY: Denies dyspnea, positive for cough CARDIOVASCULAR: Denies chest pain, palpitations GASTROINTESTINAL: Positive nausea, negative vomiting, abdominal pain : Denies dysuria, frequency, hematuria MUSCULOSKELETAL: Positive muscle or bony pain SKIN: Denies rash, skin lesions NEUROLOGIC: Denies weakness, numbness ROS Unobtainable: All systems reviewed & are unremarkable except as noted in HPI and below Patient History Medical History Anal fissure (02/2018) Anal fissure Anxiety Back pain Benign prostatic hyperplasia (01/02/15) BPH (benign prostatic hyperplasia) Cellulitis of lower extremity Controlled type 2 diabetes mellitus without complication (04/30/16) COPD (chronic obstructive pulmonary disease) Cramps of lower extremity (01/02/15) Degenerative arthritis of lumbar spine Degenerative disc disease Essential hypertension GERD (gastroesophageal reflux disease) Inflamed internal hemorrhoid (02/2018) Left sided sciatica Lumbar disc herniation with radiculopathy Osteoarthritis of lower back (09/19/14) Peripheral neuropathy Pneumonia Prepatellar bursitis of right knee Spinal stenosis Tear of rotator cuff (09/19/14) Surgical History H/O colonoscopy (07/08/15) H/O sinus surgery (2003) History of elbow surgery History of lumbar fusion (02/01/19) History of sebaceous cyst (2000) Hx of hand surgery (~2004) Hx of inguinal hernia surgery (1996) Hx of microdiscectomy (07/01/18) Status post epidural steroid injection Status post laminectomy Family History Father DC (myocardial infarction) Grandmother Diabetes mellitus Mother Lymphoma Grandfather Colon cancer Sister Bladder cancer Social History marital status: (11/01/18) household members: none Smoking Status: Former smoker alcohol intake: current Smoking Status: Former smoker alcohol intake frequency: holidays/special occasions only Alcohol type: beer Substance Use Type: marijuana Exam Narrative Exam Narrative: GENERAL: in no distress, not toxic not dyspneic HEAD: Normocephalic. EYES: Pupils equal round No scleral icterus. ENT: Mucous membranes moist. NECK: Trachea midline. CARDIOVASCULAR: Regular rate and rhythm without murmurs RESPIRATORY: Clear to auscultation. Breath sounds equal bilaterally. No wheezes, rales, or rhonchi. Speaking full sentences, no respiratory distress GASTROINTESTINAL: Abdomen soft, non-tender EXTREMITIES: No gross deformities. BACK: No flank tenderness. NEURO: AOx4. SKIN: Warm and dry PSYCH: Not anxious, is cooperative Initial Vital Signs Initial Vital Signs: Vital Signs Temperature 99.1 F 05/07/22 20:46 Pulse Rate 89 05/07/22 20:46 Respiratory Rate 24 05/07/22 20:46 Blood Pressure 205/84 H 05/07/22 20:46 Pulse Oximetry 94 05/07/22 20:46 Oxygen Delivery Method 05/07/22 20:46 Course Course Course Narrative: No new issues during course of stay Orders Ordered: ED Orders 05/07/22 20:43 CBC Auto Diff [Complete Blood Count AUTO DIFF] Stat CMP [Comprehensive Metabolic Panel] Stat Lactate (Lactic Acid) Stat Procalcitonin Stat 05/07/22 20:46 XR chest 1V Stat 05/07/22 20:50 COVID19 -Nasal RAPID/Pre-Proc Stat Discontinued Medications Sodium Chloride (Normal Saline 0.9%) 1,000 mls @ 1,000 mls/hr IV BOLUS ONE Stop: 05/07/22 21:46 Last Infusion: 05/07/22 23:56 Dose: 0 mls/hr Documented By: Admin: 05/07/22 21:07 Dose: 1,000 mls/hr Documented By: DEANA Ibuprofen (Ibuprofen 400 Mg Tablet) 600 mg PO NOW ONE Stop: 05/07/22 20:48 Last Admin: 05/07/22 21:06 Dose: 600 mg Documented By: DEANA Reevaluation(s) Reevaluation #1: Patient sleeping comfortably. 94% room air. Awoke patient to review results. He states he feels much better. Return precautions reviewed with him. He agrees at this time no additional medications for treating COVID. Patient understands quarantine 10 days from 1st day of onset. Work note provided. Time: 22:53 Vital Signs Vital signs: Vital Signs - 8 hr 05/07/22 20:46 05/07/22 21:00 05/07/22 21:00 Temperature 99.1 F Pulse Rate 89 80 Respiratory Rate 24 26 H Blood Pressure 205/84 H 187/80 H Pulse Oximetry 94 93 Oxygen Delivery Method Room Air Room Air 05/07/22 21:30 05/07/22 21:30 05/07/22 22:00 Temperature Pulse Rate 77 Respiratory Rate 20 Blood Pressure 162/69 H 160/67 H Pulse Oximetry 93 Oxygen Delivery Method Room Air 05/07/22 22:00 05/07/22 22:30 05/07/22 22:30 Temperature Pulse Rate 68 65 Respiratory Rate 18 16 Blood Pressure 140/64 Pulse Oximetry 94 92 Oxygen Delivery Method 05/07/22 23:00 05/07/22 23:00 05/07/22 23:30 Temperature Pulse Rate 62 58 L Respiratory Rate 16 14 Blood Pressure 137/64 Pulse Oximetry 93 93 Oxygen Delivery Method 05/07/22 23:31 05/07/22 23:31 05/08/22 00:09 Temperature 97.8 F Pulse Rate 58 L Respiratory Rate 14 Blood Pressure 119/56 L Pulse Oximetry 94 Oxygen Delivery Method MDM - URI/Sore Throat Lab Data Result diagrams: 05/07/22 20:43 05/07/22 20:43 Labs: Lab Results 05/07/22 05/07/22 05/07/22 Range/Units 20:43 20:43 20:43 WBC 5.2 (4.5-11.0) X10^3/uL RBC 4.95 (4.5-5.9) X10^6/uL Hgb 14.0 (13.5-17.5) g/dL Hct 41.8 (41-53) % MCV 84.5 (80-100) fL MCH 28.3 (26-34) PG MCHC 33.5 (30-36) % RDW 14.1 (11.6-14.8) % Plt Count 114 L (150-400) X10^3/uL Neut % (Auto) 77.6 H (50-75) % Lymph % (Auto) 10.9 L (25-40) % [place] % (Auto) 9.9 (3-14) % Eos % (Auto) 0.8 L (2-4) % Baso % (Auto) 0.8 (0-2) % Neut # (Auto) 4100 (7810-5575) /uL Lymph # (Auto) 600 L (7593-3976) /uL [place] # (Auto) 500 (0-900) /uL Eos # (Auto) 0 (0-450) /uL Baso # (Auto) 0 (0-100) /uL Sodium 135 L (137-145) mmol/L Potassium 4.2 (3.4-5.1) mmol/L Chloride 99 (98-107) mmol/L Carbon Dioxide 25 (22-32) mmol/L BUN 17 (9-20) mg/dL Creatinine 1.04 (0.66-1.25) mg/dL Estimated GFR > 60 (>60) mL/min BUN/Creatinine Ratio 16.3 (6-22) Glucose 171 H (80-110) mg/dL Lactate 1.0 (0.7-2.1) mmol/L Calcium 8.3 L (8.4-10.2) mg/dL Total Bilirubin 0.5 (0.2-1.3) mg/dL AST 108 H (17-59) IU/L ALT 74 H (<50) IU/L Alkaline Phosphatase 70 (38-126) U/L Total Protein 7.3 (6.3-8.2) g/dL Albumin 4.1 (3.5-5.0) g/dL Globulin 3.2 (1.7-4.1) g/dL Albumin/Globulin Ratio 1.3 (1.0-2.8) Procalcitonin 0.12 (<0.5) ng/mL SARS-CoV-2 (PCR) (Negative) 05/07/22 Range/Units 20:50 WBC (4.5-11.0) X10^3/uL RBC (4.5-5.9) X10^6/uL Hgb (13.5-17.5) g/dL Hct (41-53) % MCV (80-100) fL MCH (26-34) PG MCHC (30-36) % RDW (11.6-14.8) % Plt Count (150-400) X10^3/uL Neut % (Auto) (50-75) % Lymph % (Auto) (25-40) % [place] % (Auto) (3-14) % Eos % (Auto) (2-4) % Baso % (Auto) (0-2) % Neut # (Auto) (6564-8498) /uL Lymph # (Auto) (9091-1890) /uL [place] # (Auto) (0-900) /uL Eos # (Auto) (0-450) /uL Baso # (Auto) (0-100) /uL Sodium (137-145) mmol/L Potassium (3.4-5.1) mmol/L Chloride (98-107) mmol/L Carbon Dioxide (22-32) mmol/L BUN (9-20) mg/dL Creatinine (0.66-1.25) mg/dL Estimated GFR (>60) mL/min BUN/Creatinine Ratio (6-22) Glucose (80-110) mg/dL Lactate (0.7-2.1) mmol/L Calcium (8.4-10.2) mg/dL Total Bilirubin (0.2-1.3) mg/dL AST (17-59) IU/L ALT (<50) IU/L Alkaline Phosphatase (38-126) U/L Total Protein (6.3-8.2) g/dL Albumin (3.5-5.0) g/dL Globulin (1.7-4.1) g/dL Albumin/Globulin Ratio (1.0-2.8) Procalcitonin (<0.5) ng/mL SARS-CoV-2 (PCR) Positive H (Negative) Imaging Data Chest x-ray: Radiologist's Impression: [address] [address] XRay Report Signed Patient: Ryland Quevedo MR#: [id number] : 1950 Acct:[id number] Age/Sex: 71 / M Date of Service: 05/07/22 Loc: ED Accession Number: [id number] ?? Procedure: XR chest 1V Ordering Provider: Jd Reyes MD PROCEDURE:? XR CHEST 1V ? INDICATIONS:? cough/soa/covid + ? TECHNIQUE:? One view of the chest was acquired.? ? COMPARISON:? [facility], CR, XR CHEST 2V, 03/21/2022, 7:49. ? FINDINGS:? ? Surgical changes and devices:? None.? ? Lungs and pleura:? Lungs are clear.? No pleural effusions or pneumothorax.? ? Mediastinum:? Mediastinal contours appear normal.? Heart size is normal.? ? Bones and chest wall:? No suspicious bony lesions.? Overlying soft tissues appear unremarkable.? ? IMPRESSION:? No acute cardiopulmonary disease.? ? ? Dictated by: Chelsey Potts M.D. on 05/07/2022 at 21:59 ? ? Approved by: Chelsey Potts M.D. on 05/07/2022 at 21:59 ? MDM Narrative Medical decision making narrative: Appropriate for discharge home. Laboratory studies reassuring, no pneumonia on x-ray. Fevers control. Patient feels much better. He desires discharge home. Return precautions reviewed with him. No additional medications required for COVID. Not requiring admission, not requiring supplemental oxygen. Discharge Plan Departure Patient Disposition: Home Clinical Impression: COVID-19 Instructions: DI for COVID-19 (Suspected or Confirmed ) Activity Restrictions/Additional Instructions: Please continue home medications. May take ibuprofen or Tylenol for pain or aches and fever. See family doctor in a week for re-evaluation. You must quarantine 10 days from 1st day of symptoms. Keep well hydrated. Return if worse if any questions or concerns or if any trouble breathing. Prescriptions: No Action amlodipine 5 mg tablet 5 mg PO DAILY Qty: 30 1RF Rx Instructions: Take one tablet once daily with Enalapril (either a.m. or p.m. Enalapril) diclofenac sodium [Voltaren Arthritis Pain] 1 % gel 2 g topical QID Qty: 100 0RF Rx Instructions: apply to wrist or hand; for hand includes palm/fingers/back of hand (DME) Contour Test Strips 0 .Route .MEDSUPPLY Qty: 100 0RF Rx Instructions: Use daily as directed to monitor blood glucose. clobetasol 0.05 % solution 1 applic TOP BID 7 Days Qty: 25 1RF gabapentin 600 mg tablet 600 mg PO .COMPLEX MDD 5 Qty: 450 3RF Rx Instructions: Take up to 5 times daily for neuropathy triamcinolone acetonide 0.5 % cream 1 applic topical TID Qty: 30 1RF Rx Instructions: Apply sparingly to affected area (after washing w/soap and water) up to 3 times a day enalapril maleate 10 mg tablet 10 mg PO BID Qty: 180 1RF tamsulosin [Flomax] 0.4 mg capsule 0.4 mg PO DAILY Qty: 90 3RF metformin 500 mg tablet 125 mg PO QID Qty: 90 3RF atorvastatin 10 mg tablet 10 mg PO BEDTIME Qty: 90 3RF hydrocodone-acetaminophen 7.5-325 mg tablet 1 tab PO Q4-6H PRN (Reason: pain) Qty: 30 0RF Rx Instructions: Take 1 tablets every 4-6 hours as needed for pain due to shingles metformin 500 mg tablet 125 mg PO QID hydroxyzine pamoate 25 mg Capsule 25 mg PO Q4HR PRN (Reason: aggitation, spasms, Nausea) Qty: 60 0RF Referrals: Cas Marin MD [Primary Care Provider] - Stand Alone Forms: Work Release Note Visit Report Forms: Patient Portal/API
[2022-05-07 20:56] LABS: Add Manual Diff / Slide Review NO; Basophils Absolute Auto 0 /uL (0-100); Basophils Percent Auto 0.8 % (0-2); Eosinophils Absolute Auto 0 /uL (0-450); Eosinophils Percent Auto 0.8 % (2-4); Hematocrit 41.8 % (41-53); Lymphocytes Absolute Auto 600 /uL (1100-4500); Lymphocytes Percent Auto 10.9 % (25-40); Mean Corpuscular HGB Conc 33.5 % (30-36); Mean Corpuscular Hemoglobin 28.3 PG (26-34); Mean Corpuscular Volume 84.5 fL (80-100); Monocytes Absolute Auto 500 /uL (0-900); Monocytes Percent Auto 9.9 % (3-14); Neutrophils Absolute Auto 4100 /uL (1500-7000); Neutrophils Percent Auto 77.6 % (50-75); Platelet Count 114 X10^3/uL (150-400); Red Blood Cell Count 4.95 X10^6/uL (4.5-5.9); Red Cell Distribution Width 14.1 % (11.6-14.8); White Blood Cell Count 5.2 X10^3/uL (4.5-11.0)
[2022-05-07] MEDS: IBUPROFEN 400 MG TABLET 600 MG PO (21:06)
[2022-05-07] MEDS: SODIUM CHLORIDE 0.9% 1,000 ML 1000 ML IV (21:07)
[2022-05-07 21:08] LABS: COVID19 -Nasal RAPID POSITIVE (Negative)
[2022-05-07 21:10] LABS: Alanine Aminotransferase 74 IU/L (<50); Albumin 4.1 g/dL (3.5-5.0); Albumin Globulin Ratio 1.3 (1.0-2.8); Alkaline Phosphatase 70 U/L (38-126); Aspartate Aminotransferase 108 IU/L (17-59); BUN Creatinine Ratio 16.3 (6-22); Bilirubin Total 0.5 mg/dL (0.2-1.3); Blood Urea Nitrogen 17 mg/dL (9-20); Calcium 8.3 mg/dL (8.4-10.2); Carbon Dioxide 25 mmol/L (22-32); Chloride 99 mmol/L (98-107); Estimated Glomerular Filt Rate > 60 mL/min (>60); Globulin 3.2 g/dL (1.7-4.1); Glucose 171 mg/dL (80-110); HEMOLYSIS < 15 (0-50); Potassium 4.2 mmol/L (3.4-5.1); Sodium 135 mmol/L (137-145); Total Protein 7.3 g/dL (6.3-8.2)
[2022-05-07 21:25] LABS: Procalcitonin 0.12 ng/mL (<0.5)
[2022-05-08 00:09] VITALS: TEMP 36.6
== END 2022-05-08 00:10 | disposition home or self-care (01) ==
PROVIDERS: Emergency Provider Emergency Medicine; PCP Family Medicine
DX: U07.1 COVID-19 (principal)
CPT/HCPCS: 36415; 71045; 80053; 83605; 84145; 85025; 87635; 96360; 96361; 99284; C9803

== ENCOUNTER → 2022-06-03 14:55 | Outpatient (CLI) | payer MEDICARE, OTHER, SELFPAY ==
[2021-06-20 10:47] VITALS: BMI 31.9
--- NOTE | 2022-06-10 14:47 | DIAB.MNTFU ---
Follow-up Diabetes Medical Nutrition Therapy Assessment Name: Ryland Quevedo Date: 06/03/22 Time: 320-440p Dx: Type II Diabetes Provider: Tania/Gt Ryland presents for follow-up 5 months after initial visit. States he had to cancel previous appt and did not r/s. States he has to get his HgA1c down. Current up from 6.6%, now 7.6%. Reports he had to cancel his February knee replacement due to elevated hgA1c. Seems motivated to make changes. Continues to work. States he never will retire since it keeps him busy. Somewhat tearful today about his 's passing. She helped quite a bit with his diet. States it is difficult to manage on his own. Most meals are fast food or frozen or canned. Feels his HgA1c is up directly due to diet. Diet Recall: 6a: villanueva, eggs, 2-3c hashbrowns 12p: arbys sandwich with fries x large and diet coke ; burger chaya burger and hubbard ; mcdonalds burger and hubbard 6-9p: canned soup with 0.5-1 sleeve of crackers ; big bowl of spaghetti ; fish and tater tots Eating out 5 days per week Beverages: water not enough, diet coke Anthropometrics: Ht: 5'7.5 Wt: 205# reported Physical Activity: Work is his main source of movement. No program in place. Self-Monitoring Blood Glucose: None Diabetes Medications: 500mg Metformin Pertinent Labs: HgA1c: 01/2022 7.6% 07/2021 6.6% 01/2021 6.8% 02/2020 6.5% 04/2019 6.2% Past Medical History: (Last Reviewed 05/15/22 @ 08:35 by VERENA Plummer) Anal fissure (02/2018) Anal fissure Anxiety R/T inability to work; anxious to return Back pain Benign prostatic hyperplasia (01/02/15) BPH (benign prostatic hyperplasia) Cellulitis of lower extremity Controlled type 2 diabetes mellitus without complication (04/30/16) COPD (chronic obstructive pulmonary disease) Cramps of lower extremity (01/02/15) Degenerative arthritis of lumbar spine Degenerative disc disease Essential hypertension GERD (gastroesophageal reflux disease) Inflamed internal hemorrhoid (02/2018) Left sided sciatica Lumbar disc herniation with radiculopathy Osteoarthritis of lower back (09/19/14) Peripheral neuropathy Pneumonia Prepatellar bursitis of right knee Spinal stenosis Tear of rotator cuff (09/19/14) Nutrition Rx: Carbohydrates: Daily: 189g Meal:45-60g Snack:15-30g Nutrition Diagnosis: Excessive CHO intake r/t nutrition knowledge deficit aeb eating out, diet recall indicating 75-100+g in sitting Inadequate fiber intake r/t processed food intake aeb diet recall of limited vegetables and whole grains Intervention: This participant was very receptive. Provided appropriate educational handouts. Discussed the following topics: Eating out carb content and strategies Plate Method, impact of macronutrients on blood sugar, meal timing, carbohydrate counting, pairing macronutrients and spreading out carbohydrates for better blood glucose management Heart health nutrition: fats, fiber, and sodium Meal planning and carb counting review Fluid recs Created SMART goals for patient self-care and success. Goals: Eat breakfast every morning- improved Take vegetables to work- not met Take 1L water bottle to work - not met Measure pasta at meals- new Skip fries at fast food- new Buy peaches in juice and not syrup- new Drink water (1.8-2L per day unless provider recs otherwise)- new Follow-up: DONNA JULIEN follow-up in 4 weeks Aleah Farah RDN, [facility] Certified Diabetes Care and Content Manager P: [phone] Thank you for this referral
== END ==
PROVIDERS: PCP Family Medicine; Referring Provider Physician Assistant; Visit Provider Physician Assistant
DX: E11.9 Type 2 diabetes mellitus without complications (principal); Z79.84 Long term (current) use of oral hypoglycemic drugs; Z71.3 Dietary counseling and surveillance
CPT/HCPCS: 97803

== ENCOUNTER → 2022-07-27 07:14 | Outpatient (CLI) | payer MEDICARE, OTHER, SELFPAY ==
[2021-06-20 10:47] VITALS: BMI 31.9
[2022-07-27 09:27] LABS: Hemoglobin A1C% w Est Avg Glu 8.5 % (4.0-6.0)
[2022-07-27 10:01] LABS: Cholesterol 120 mg/dL (140-199); HDL Cholesterol 34 mg/dL (40-60); LDL Cholesterol Calculated 59 mg/dL (<100); Triglycerides 136 mg/dL (35-150)
[2022-07-27 10:17] LABS: Prostate Specific Antigen 1.12 ng/mL (0.10-4.00)
== END ==
PROVIDERS: PCP Family Medicine; Referring Provider Physician Assistant; Visit Provider Physician Assistant
DX: E11.9 Type 2 diabetes mellitus without complications (principal); Z13.9 Encounter for screening, unspecified; E78.2 Mixed hyperlipidemia; Z12.5 Encounter for screening for malignant neoplasm of prostate
CPT/HCPCS: 36415; 80061; 83036; 84153; G0103

== ENCOUNTER → 2022-09-25 06:59 | Outpatient (CLI) | payer MEDICARE, OTHER, SELFPAY ==
[2021-06-20 10:47] VITALS: BMI 31.9
[2022-09-25 08:10] LABS: Add Manual Diff / Slide Review NO; Basophils Absolute Auto 100 /uL (0-100); Basophils Percent Auto 1.2 % (0-2); Eosinophils Absolute Auto 100 /uL (0-450); Eosinophils Percent Auto 2.5 % (2-4); Hematocrit 43.1 % (41-53); Hemoglobin 14.3 g/dL (13.5-17.5); Lymphocytes Absolute Auto 900 /uL (1100-4500); Lymphocytes Percent Auto 17.3 % (25-40); Mean Corpuscular HGB Conc 33.2 % (30-36); Mean Corpuscular Hemoglobin 28.4 PG (26-34); Mean Corpuscular Volume 85.4 fL (80-100); Monocytes Absolute Auto 400 /uL (0-900); Monocytes Percent Auto 7.2 % (3-14); Neutrophils Absolute Auto 3900 /uL (1500-7000); Neutrophils Percent Auto 71.8 % (50-75); Platelet Count 153 X10^3/uL (150-400); Red Blood Cell Count 5.04 X10^6/uL (4.5-5.9); Red Cell Distribution Width 14.1 % (11.6-14.8); White Blood Cell Count 5.4 X10^3/uL (4.5-11.0)
[2022-09-25 08:49] LABS: Alanine Aminotransferase 48 IU/L (<50); Albumin 4.2 g/dL (3.5-5.0); Albumin Globulin Ratio 1.5 (1.0-2.8); Alkaline Phosphatase 75 U/L (38-126); Aspartate Aminotransferase 45 IU/L (17-59); BUN Creatinine Ratio 21.5 (6-22); Bilirubin Total 0.6 mg/dL (0.2-1.3); Blood Urea Nitrogen 20 mg/dL (9-20); Calcium 8.8 mg/dL (8.4-10.2); Carbon Dioxide 26 mmol/L (22-32); Chloride 99 mmol/L (98-107); Estimated Glomerular Filt Rate > 60 mL/min (>60); Globulin 2.8 g/dL (1.7-4.1); Glucose 215 mg/dL (80-110); HEMOLYSIS < 15 (0-50); Potassium 4.6 mmol/L (3.4-5.1); Sodium 137 mmol/L (137-145)
[2022-09-25 09:00] LABS: Hemoglobin A1C% w Est Avg Glu 9.3 % (4.0-6.0)
== END ==
PROVIDERS: Physician Assistant; PCP Family Medicine; Referring Provider Family Medicine; Visit Provider Family Medicine
DX: I10 Essential (primary) hypertension (principal); E11.9 Type 2 diabetes mellitus without complications; E11.65 Type 2 diabetes mellitus with hyperglycemia; Z79.899 Other long term (current) drug therapy
CPT/HCPCS: 36415; 80053; 83036; 85025

== ENCOUNTER → 2022-10-21 09:14 | Outpatient (CLI) | payer MEDICARE, OTHER, SELFPAY ==
[2021-06-20 10:47] VITALS: BMI 31.9
--- NOTE | 2022-10-21 10:48 | DIAB.MNTFU ---
Follow-up Diabetes Medical Nutrition Therapy Assessment Name: Ryland Quevedo Date: 10/21/22 Time: [id number] Dx: Type II Diabetes Ryland presents for diabetes follow-up. One barrier to diabetes care is long periods of time between appointments due to no-shows, which is r/t his work schedule. States he plans to work with boss to block off time for future appts. Endorses hgA1c which continues to go up, 9.3% in Sep 2022. States he is not eating more carbs, but it seems likely that increase in BG is from both lifestyle and progressive DM/reduced beta cell function. Per provider notes, he has been offered insulin in the past, which this RD agrees would be a good option. Ryland states he powell not like needles and has a h/o multiple antibiotic injections as a child. Has reduced carb intake at breakfast by cutting out potatoes. Has stopped ordering fries at lunch, as discussed last visit. Eats out for lunch 5 days per week ([employer]). These options are high in carb and sodium. Eats out breakfast once per week with friend, orders omelette with villanueva and sausage, potatoes and toast. Eats half the potatoes. Endorses poorly managed HTN as well, exacerbated by eating out and canned foods and TV dinners. Inadequate water intake with 15oz per day, most liquids from coffee and diet soda. Eating more veggie at dinner. Purchased whole grain bread. Endorse poor sleep. Cannot sleep on a bed without back pain. Sleeps in a recliner. Wakes in the middle of night, watches movie, goes back to sleep. Estimates 5 or less hours sleep per night. Rests more on weekends, barrier to exercise on days off. Son and granddaughter moved in with him. Plans to change diet with son. Anthropometrics: Ht: 5'7.5 Wt: 210# reported (up from last reported 205#) Physical Activity: Work is his main source of movement. No program in place. Tired on weekends. Self-Monitoring Blood Glucose: Checking periodically. This morning 199 mg/dl fasting. Diabetes Medications: 500mg Metformin XR (severe diarrhea reported daily with metformin. Does not want to d/c due to low cost. Likely benefit from sulfonylurea or insulin. states has tried other meds and they were either too expensive or did not work. Has not tried insulin). Pertinent Labs: HgA1c: 09/2022: 9.3% 07/2022: 8.5% 01/2022 7.6% 07/2021 6.6% 01/2021 6.8% 02/2020 6.5% 04/2019 6.2% Past Medical History: (Last Reviewed 09/23/22 @ 15:46 by VERENA Plummer) Anal fissure (02/2018) Anal fissure Anxiety R/T inability to work; anxious to return Back pain Benign prostatic hyperplasia (01/02/15) BPH (benign prostatic hyperplasia) Cellulitis of lower extremity Controlled type 2 diabetes mellitus without complication (04/30/16) COPD (chronic obstructive pulmonary disease) Cramps of lower extremity (01/02/15) Degenerative arthritis of lumbar spine Degenerative disc disease Essential hypertension GERD (gastroesophageal reflux disease) Inflamed internal hemorrhoid (02/2018) Left sided sciatica Lumbar disc herniation with radiculopathy Osteoarthritis of lower back (09/19/14) Peripheral neuropathy Pneumonia Prepatellar bursitis of right knee Spinal stenosis Tear of rotator cuff (09/19/14) Nutrition Rx: Carbohydrates: Daily: 189g Meal:45g Snack:15-30g Nutrition Diagnosis: Excessive CHO intake r/t nutrition knowledge deficit and stage of change aeb eating out, diet recall - in progress Excessive sodium intake r/t knowledge deficit and stage of change aeb diet recall of eating out frequency, canned foods, and TV dinners Inadequate fiber intake r/t processed food intake aeb diet recall of limited vegetables and whole grains- improved Inadequate fluids intake r/t stage of change aeb diet recall of <1L water per day Intervention: This participant was very receptive. Provided appropriate educational handouts. Discussed the following topics: Eating out frequency Sodium intake Label reading Sodium, carb and fluid recs low carb meal ideas Medication management: potential for insulin diabetes pathophys: insulin resistance and insulin production over time, progression of DM Sleep and impact on DM Created SMART goals for patient self-care and success. Goals: Measure pasta at meals- d/c no pasta recently Skip fries at fast food- met Buy peaches in juice and not syrup- cont Drink water (1.8-2L per day unless provider recs otherwise)- not met Try tuna with veggies at lunch-new Try shredded chicken- new Skip toast on weekend breakfast- new Increase water intake to 1L+- new Follow-up: DONNA JULIEN follow-up in 4 weeks. Ryland continues to show motivation for making lifestyle changes. Seems he would benefit from addition DM medication. Will continue to support lifestyle changes and discuss potential for meds to help with stage of change. Aleah Farah RDN, [facility] Certified Diabetes Care and Marketing Operations Intern P: [phone] Thank you for this referral
== END ==
PROVIDERS: Absent Provider Family Medicine; PCP Family Medicine; Referring Provider Family Medicine; Visit Provider Family Medicine
DX: E11.9 Type 2 diabetes mellitus without complications (principal); Z79.84 Long term (current) use of oral hypoglycemic drugs; Z71.3 Dietary counseling and surveillance
CPT/HCPCS: 97803

== ENCOUNTER 2022-11-18 07:21 | Emergency (ER) | payer MEDICARE, OTHER, SELFPAY ==
[2021-06-20 10:47] VITALS: BMI 31.9
[2022-11-18] VITALS (11 sets, daily range): BP systolic 113–146; BP diastolic 55–70; PULSE 56–76; RESP 18; TEMP 36.3; O2SAT 90–94; BMI 30.5
--- NOTE | 2022-11-18 07:27 | ED_ITS ---
HPI - SOB/Dyspnea General Chief Complaint: Shortness of Breath/Dyspnea Stated Complaint: fever/SOB/weak T-7 Time Seen by Provider: 11/18/22 07:27 Source: patient, RN notes reviewed and old records reviewed Mode of arrival: Ambulatory Limitations: no limitations History of Present Illness HPI Narrative: This is a 71-year-old male with history of hypertension, dyslipidemia, diabetes, BPH, degenerative disc disease and prior lumbar fusion who presents with a week of fevers, nasal congestion, green productive sputum and 12 hours of burning across his chest. Patient states he is had fevers up to 101 F, nasal congestion has been coughing and having shortness of breath which he states it is little bit worse today. He states last night he noticed there were some burning across the top of his chest from shoulder to shoulder. Patient states no radiation elsewhere. No diaphoresis. Patient denies any nausea or vomiting. He denies any diarrhea or constipation. Denies any urinary symptoms. He states the swe lling in his legs is actually much better than normal. Patient notes he is had pneumonia multiple times in the past. He states he is had his Pneumovax in the past, he is had his COVID immunizations. He has been trying Mucinex at home 4 times daily but stopped this as it makes him felt loopy. Patient states he is had multiple back surgeries including fusion, he denies any cardiac history or cardiac stents or interventions. He quit smoking tobacco about 8 years ago, 3-4 alcoholic drinks weekly, no illicit. Dr. Marin is his primary care physician. Related Data Home Medications Medication Instructions Recorded Confirmed gabapentin 600 mg tablet 600 mg PO .5XDAILY 07/29/22 09/30/22 Previous Rx's Medication Instructions Recorded Contour Test Strips #100 ea 12/25/19 diclofenac sodium 1 % topical gel 2 g topical QID #100 grams 08/14/21 (Voltaren Arthritis Pain) atorvastatin 10 mg tablet 10 mg PO BEDTIME #90 tabs 04/08/22 tamsulosin 0.4 mg capsule (Flomax) 0.4 mg PO DAILY #90 caps 04/08/22 albuterol sulfate 90 mcg/actuation 2 puff inhalation Q4-6H PRN 05/15/22 aerosol inhaler (ProAir HFA) shortness of breath or wheezing #8.5 grams hydrocortisone 2.5 % topical cream 1 applic topical BID PRN 07/29/22 Hemorrhoids #60 grams amlodipine 5 mg tablet 5 mg PO DAILY #90 tabs 09/30/22 hydrocodone 7.5 mg-acetaminophen 1 tab PO Q4-6H PRN pain #30 tabs 09/30/22 325 mg tablet metformin 500 mg tablet,extended 500 mg PO QPM #90 tabs 09/30/22 release 24 hr clobetasol 0.05 % shampoo 1 applic topical BEDTIME 4 weeks 10/05/22 #118 mL enalapril maleate 10 mg tablet 10 mg PO BID #180 tabs 10/21/22 fluticasone propionate 50 1 spray intranasal DAILY PRN nasal 11/18/22 mcg/actuation nasal congestion #16 grams spray,suspension (Flonase Allergy Relief) loratadine 10 mg tablet 10 mg PO DAILY #14 tabs 11/18/22 Allergies Allergy/AdvReac Type Severity Reaction Status Date / Time Sulfa (Sulfonamide Allergy Severe BLISTER, Verified 09/23/22 15:30 Antibiotics) skin [SULFA (SULFONAMIDE comes off ANTIBIOTICS)] my legs latex [LATEX] Allergy Mild SKIN Verified 09/23/22 15:30 IRRITATION amoxicillin [AMOXICILLIN] AdvReac Severe Makes my Verified 09/23/22 15:30 skin crawl clavulanic acid AdvReac Severe AUGMENTIN/V Verified 09/23/22 15:30 [CLAVULANIC ACID] OMITING Penicillins [PENICILLINS] AdvReac Severe NAUSEA/VOMI Verified 09/23/22 15:30 TING ciprofloxacin [CIPROFLOXACIN] AdvReac Intermediate MADE PT Verified 09/23/22 15:30 FEEL RUMMY/NAUSEA erythromycin base AdvReac Intermediate SKIN Verified 09/23/22 15:30 [ERYTHROMYCIN BASE] CRAWLING Review of Systems Review of Systems ROS Unobtainable: All systems reviewed & are unremarkable except as noted in HPI and below Patient History Medical History Anal fissure (02/2018) Anal fissure Anxiety Back pain Benign prostatic hyperplasia (01/02/15) BPH (benign prostatic hyperplasia) Cellulitis of lower extremity Controlled type 2 diabetes mellitus without complication (04/30/16) COPD (chronic obstructive pulmonary disease) Cramps of lower extremity (01/02/15) Degenerative arthritis of lumbar spine Degenerative disc disease Essential hypertension GERD (gastroesophageal reflux disease) Inflamed internal hemorrhoid (02/2018) Left sided sciatica Lumbar disc herniation with radiculopathy Osteoarthritis of lower back (09/19/14) Peripheral neuropathy Pneumonia Prepatellar bursitis of right knee Spinal stenosis Tear of rotator cuff (09/19/14) Surgical History H/O colonoscopy (07/08/15) H/O sinus surgery (2003) History of elbow surgery History of lumbar fusion (02/01/19) History of sebaceous cyst (2000) Hx of hand surgery (~2004) Hx of inguinal hernia surgery (1996) Hx of microdiscectomy (07/01/18) Status post epidural steroid injection Status post laminectomy Family History Father IA (myocardial infarction) Grandmother Diabetes mellitus Mother Lymphoma Grandfather Colon cancer Sister Bladder cancer Social History marital status: (11/01/18) household members: none Smoking Status: Former smoker alcohol intake: current Smoking Status: Former smoker alcohol intake frequency: holidays/special occasions only Alcohol type: beer Substance Use Type: marijuana Exam Narrative Exam Narrative: GEN: well nourished, well appearing male, alert and oriented x 3, patient appear s to be in mild distress. HEENT: Atraumatic, pupils are equal round reactive to light, extraocular m ovements are intact, nares have mild clear rhinorrhea, there is no conjunctival pallor. HEART: Regular rate and rhythm without murmur, clicks, rubs. No swelling bilateral lower extremities. LUNGS:Lungs clear to auscultation, scant wheeze in the right base wheezes, no rales, crackles, chest moves symmetrically, no tachypnea or accessory muscle use. Patient's speaks in full sentences. ABD:bowel sounds normal, soft, non-tender, no guarding, rebound, rigidity, no masses noted, no hepatosplenomegaly, nondistended. :No CVA tenderness MSCL: Non-tender, no muscle atrophy, muscles strength 5/5 upper and lower extremities, full range of motion, normal gait NEURO:CN 2-12 intact, sensation normal SKIN: No rash, erythema or other skin changes Initial Vital Signs Initial Vital Signs: Vital Signs Temperature 97.3 F L 11/18/22 07:23 Pulse Rate 76 11/18/22 07:23 Respiratory Rate 18 11/18/22 07:23 Blood Pressure 146/70 H 11/18/22 07:23 Pulse Oximetry 92 11/18/22 07:23 Oxygen Delivery Method Room Air 11/18/22 07:23 Scores CURB-65 Confusion: No Respiratory rate greater or equal to 30: No SBP <90mmHg or DBP less or equal to 60mmHg: No Age 65 or Older: Yes Score 0-1 Outpatient care, Score 2 Inpt vs. Obs, Score 3 or over Inpt admit with ICU for score of 4-5 Course Orders Ordered: ED Orders 11/18/22 07:05 PTT Partial Thromboplastin [place] Stat Prothrombin Time INR Stat 11/18/22 07:28 Covid-19 + FLU A/B + RSV - PCR Stat 11/18/22 07:34 XR chest 1V Stat Comprehensive Metabolic Panel Stat Lipase Stat NT-proBNP (BNP-Adult 18+) Stat Procalcitonin Stat Troponin & CK Cardiac Panel Stat 11/18/22 07:49 EKG-12 Lead Stat 11/18/22 07:50 Complete Blood Count AUTO DIFF Stat Vital Signs Vital signs: Vital Signs - 8 hr 11/18/22 07:23 11/18/22 07:47 11/18/22 08:00 Temperature 97.3 F L Pulse Rate 76 62 60 Respiratory Rate 18 Blood Pressure 146/70 H Pulse Oximetry 92 92 92 Oxygen Delivery Method Room Air Room Air Room Air 11/18/22 08:01 11/18/22 08:01 11/18/22 08:30 Temperature Pulse Rate 60 59 L Respiratory Rate Blood Pressure 117/56 L Pulse Oximetry 91 94 Oxygen Delivery Method Room Air Room Air 11/18/22 08:37 11/18/22 08:37 11/18/22 09:00 Temperature Pulse Rate 69 63 Respiratory Rate Blood Pressure 129/62 Pulse Oximetry 94 91 Oxygen Delivery Method 11/18/22 09:01 11/18/22 09:01 11/18/22 09:30 Temperature Pulse Rate 63 Respiratory Rate Blood Pressure 113/55 L 114/60 Pulse Oximetry 90 L Oxygen Delivery Method 11/18/22 09:30 11/18/22 10:00 11/18/22 10:01 Temperature Pulse Rate 56 L 56 L 56 L Respiratory Rate Blood Pressure Pulse Oximetry 90 L 92 Oxygen Delivery Method Room Air 11/18/22 10:01 Temperature Pulse Rate Respiratory Rate Blood Pressure 113/57 L Pulse Oximetry Oxygen Delivery Method MDM - SOB/Dyspnea Lab Data 11/18/22 07:50 11/18/22 07:34 Labs: Lab Results 11/18/22 11/18/22 11/18/22 Range/Units 07:05 07:28 07:34 WBC (4.5-11.0) X10^3/uL RBC (4.5-5.9) X10^6/uL Hgb (13.5-17.5) g/dL Hct (41-53) % MCV (80-100) fL MCH (26-34) PG MCHC (30-36) % RDW (11.6-14.8) % Plt Count (150-400) X10^3/uL Neut % (Auto) (50-75) % Lymph % (Auto) (25-40) % [place] % (Auto) (3-14) % Eos % (Auto) (2-4) % Baso % (Auto) (0-2) % Neut # (Auto) (5197-4730) /uL Lymph # (Auto) (8589-9045) /uL [place] # (Auto) (0-900) /uL Eos # (Auto) (0-450) /uL Baso # (Auto) (0-100) /uL PT 14.0 H (10.1-12.7) SECONDS INR 1.2 (0.9-1.3) APTT 36 (26-36) SECONDS Sodium 136 L (137-145) mmol/L Potassium 3.9 (3.4-5.1) mmol/L Chloride 101 (98-107) mmol/L Carbon Dioxide 27 (22-32) mmol/L BUN 21 H (9-20) mg/dL Creatinine 1.01 (0.66-1.25) mg/dL Estimated GFR > 60 (>60) mL/min BUN/Creatinine Ratio 20.8 (6-22) Glucose 162 H (80-110) mg/dL Calcium 8.7 (8.4-10.2) mg/dL Total Bilirubin 0.6 (0.2-1.3) mg/dL AST 64 H (17-59) IU/L ALT 58 H (<50) IU/L Alkaline Phosphatase 78 (38-126) U/L Total Creatine Kinase 107 (55-170) U/L CK-MB (CK-2) 1.65 (<2.37) ng/mL CK-MB (CK-2) Rel Index 1.5 (1.5-5.0) % Troponin I < 0.012 (0.01-0.034) ng/mL NT-Pro-B Natriuret Pep 23 (<125) pg/mL Total Protein 7.3 (6.3-8.2) g/dL Albumin 4.0 (3.5-5.0) g/dL Globulin 3.3 (1.7-4.1) g/dL Albumin/Globulin Ratio 1.2 (1.0-2.8) Lipase 43 (23-300) U/L Procalcitonin 0.07 (<0.5) ng/mL SARS-CoV-2 (PCR) Negative (Negative) Influenza A (RT-PCR) Flu a negative (NEGATIVE) Influenza B (RT-PCR) Flu b negative (NEGATIVE) RSV (PCR) Negative (Negative) 11/18/22 Range/Units 07:50 WBC 5.5 (4.5-11.0) X10^3/uL RBC 5.17 (4.5-5.9) X10^6/uL Hgb 14.7 (13.5-17.5) g/dL Hct 43.8 (41-53) % MCV 84.8 (80-100) fL MCH 28.4 (26-34) PG MCHC 33.4 (30-36) % RDW 13.9 (11.6-14.8) % Plt Count 144 L (150-400) X10^3/uL Neut % (Auto) 66.9 (50-75) % Lymph % (Auto) 21.1 L (25-40) % [place] % (Auto) 8.7 (3-14) % Eos % (Auto) 2.4 (2-4) % Baso % (Auto) 0.9 (0-2) % Neut # (Auto) 3700 (6208-4261) /uL Lymph # (Auto) 1200 (2021-7988) /uL [place] # (Auto) 500 (0-900) /uL Eos # (Auto) 100 (0-450) /uL Baso # (Auto) 0 (0-100) /uL PT (10.1-12.7) SECONDS INR (0.9-1.3) APTT (26-36) SECONDS Sodium (137-145) mmol/L Potassium (3.4-5.1) mmol/L Chloride (98-107) mmol/L Carbon Dioxide (22-32) mmol/L BUN (9-20) mg/dL Creatinine (0.66-1.25) mg/dL Estimated GFR (>60) mL/min BUN/Creatinine Ratio (6-22) Glucose (80-110) mg/dL Calcium (8.4-10.2) mg/dL Total Bilirubin (0.2-1.3) mg/dL AST (17-59) IU/L ALT (<50) IU/L Alkaline Phosphatase (38-126) U/L Total Creatine Kinase (55-170) U/L CK-MB (CK-2) (<2.37) ng/mL CK-MB (CK-2) Rel Index (1.5-5.0) % Troponin I (0.01-0.034) ng/mL NT-Pro-B Natriuret Pep (<125) pg/mL Total Protein (6.3-8.2) g/dL Albumin (3.5-5.0) g/dL Globulin (1.7-4.1) g/dL Albumin/Globulin Ratio (1.0-2.8) Lipase (23-300) U/L Procalcitonin (<0.5) ng/mL SARS-CoV-2 (PCR) (Negative) Influenza A (RT-PCR) (NEGATIVE) Influenza B (RT-PCR) (NEGATIVE) RSV (PCR) (Negative) Imaging Data Chest x-ray: Radiologist's Impression: [address] [address] XRay Report Signed Patient: Ryland Quevedo MR#: [id number] : 1950 Acct:[id number] Age/Sex: 71 / M Date of Service: 11/18/22 Loc: ED Accession Number: [id number] ?? Procedure: XR chest 1V Ordering Provider: Jessy Ibarra D.O. PROCEDURE:? XR CHEST 1V ? INDICATIONS:? chest pain/fever/?pneumonia ? TECHNIQUE:? One view of the chest was acquired.? ? COMPARISON:? Located Within [facility], CR, XR CHEST 1V, 05/07/2022, 20:49. ? FINDINGS:? ? Surgical changes and devices:? None.? ? Lungs and pleura:? Lungs are clear.? No pleural effusions or pneumothorax.? ? Mediastinum:? Mediastinal contours appear normal.? Heart size is normal.? ? Bones and chest wall:? No suspicious bony lesions.? Overlying soft tissues appear unremarkable.? ? IMPRESSION:? No evidence acute pulmonary process. ? ? ? Dictated by: Jimmy Sears M.D. on 11/18/2022 at 7:56 ? ? Approved by: Jimmy Sears M.D. on 11/18/2022 at 7:57?? ECG Data Attestation: I personally reviewed and interpreted this ECG as follows: Prior ECG tracings: available for review Interpretation: Sinus rhythm rate of 60 NE 166 QRS [address] QTC [address]. No acute ST changes appreciated. Prior 01/15/2022 appears similar. MDM Narrative Medical decision making narrative: This is a 71-year-old male with hypertension, dyslipidemia diabetes who presents with a week of fever, green productive sputum symptoms seem consistent with pneumonia he has had some discomfort across the top of his chest from shoulder to shoulder. Does have some cardiac risk factors so labs including CBC, CMP, troponin, procalcitonin were obtained, EKG and chest x-ray patient's labs are overall reassuring, no acute changes. After further discussion patient notes he is had some green productive phlegm actually for much longer than he is had symptoms and he states he has not had fevers since November 15. Discussed with patient added Teeny bit of wheez e in the base I suspect he is some bronchitis likely exacerbated by a viral infection. Will plan to give medication for his nasal congestion and see if this continues to improve symptoms. We discussed if he has persistent fevers beyond 7-10 days and he needs to be re-evaluated and may require antibiotic. Discharge Plan Departure Patient Disposition: Home Clinical Impression: Bronchitis Instructions: Acute Bronchitis Activity Restrictions/Additional Instructions: Follow-up with your physician for recheck. You may continue to take Tylenol and/or ibuprofen as needed for fevers. I would recommend taking loratadine once daily. You can also try Flonase 1-2 sprays in each nostril daily until symptoms resolve. Prescription sent to [facility] in [place]. Please return for worsening symptoms increasing shortness of breath, passing out, new or worsening chest pain, persistent vomiting, new swelling in her extremities or other new or concerning changes. Prescriptions: New fluticasone propionate [Flonase Allergy Relief] 50 mcg/actuation spray ,suspension 1 spray intranasal DAILY PRN (Reason: nasal congestion) Qty: 16 0RF Rx Instructions: administer into each nostril loratadine 10 mg tablet 10 mg PO DAILY Qty: 14 0RF No Action hydrocortisone 2.5 % cream 1 applic TOP BID PRN (Reason: Hemorrhoids) Qty: 60 3RF gabapentin 600 mg tablet 600 mg PO .5XDAILY metformin 500 mg tablet extended release 24 hr 500 mg PO QPM Qty: 90 1RF Rx Instructions: Take one tablet with evening meal once daily amlodipine 5 mg tablet 5 mg PO DAILY Qty: 90 1RF Rx Instructions: Take one tablet once daily with Enalapril (either a.m. or p.m. Enalapril) hydrocodone-acetaminophen 7.5-325 mg tablet 1 tab PO Q4-6H PRN (Reason: pain) Qty: 30 0RF Rx Instructions: Take 1 tablets every 4-6 hours as needed for pain diclofenac sodium [Voltaren Arthritis Pain] 1 % gel 2 g topical QID Qty: 100 0RF Rx Instructions: apply to wrist or hand; for hand includes palm/fingers/back of hand albuterol sulfate [ProAir HFA] 90 mcg/actuation HFA aerosol inhaler 2 puff inhalation Q4-6H PRN (Reason: shortness of breath or wheezing) Qty: 8.5 0RF (DME) Contour Test Strips 0 .Route .MEDSUPPLY Qty: 100 0RF Rx Instructions: Use daily as directed to monitor blood glucose. tamsulosin [Flomax] 0.4 mg capsule 0.4 mg PO DAILY Qty: 90 3RF atorvastatin 10 mg tablet 10 mg PO BEDTIME Qty: 90 3RF clobetasol 0.05 % shampoo 1 applic topical BEDTIME 28 Days Qty: 118 1RF enalapril maleate 10 mg tablet 10 mg PO BID Qty: 180 1RF Referrals: Cas Marin MD [Primary Care Provider] - Stand Alone Forms: Patient Portal/API
--- NOTE | 2022-11-18 07:34 | DI.RAD.S_ITS ---
PROCEDURE: XR CHEST 1V INDICATIONS: chest pain/fever/?pneumonia TECHNIQUE: One view of the chest was acquired. COMPARISON: [facility], CR, XR CHEST 1V, 05/07/2022, 20:49. FINDINGS: Surgical changes and devices: None. Lungs and pleura: Lungs are clear. No pleural effusions or pneumothorax. Mediastinum: Mediastinal contours appear normal. Heart size is normal. Bones and chest wall: No suspicious bony lesions. Overlying soft tissues appear unremarkable. IMPRESSION: No evidence acute pulmonary process. Dictated by: Jimmy Sears M.D. on 11/18/2022 at 7:56 Approved by: Jimmy Sears M.D. on 11/18/2022 at 7:57
[2022-11-18 08:08] LABS: Add Manual Diff / Slide Review NO; Basophils Absolute Auto 0 /uL (0-100); Basophils Percent Auto 0.9 % (0-2); Eosinophils Absolute Auto 100 /uL (0-450); Eosinophils Percent Auto 2.4 % (2-4); Hematocrit 43.8 % (41-53); Hemoglobin 14.7 g/dL (13.5-17.5); Lymphocytes Absolute Auto 1200 /uL (1100-4500); Lymphocytes Percent Auto 21.1 % (25-40); Mean Corpuscular HGB Conc 33.4 % (30-36); Mean Corpuscular Hemoglobin 28.4 PG (26-34); Mean Corpuscular Volume 84.8 fL (80-100); Monocytes Absolute Auto 500 /uL (0-900); Monocytes Percent Auto 8.7 % (3-14); Neutrophils Absolute Auto 3700 /uL (1500-7000); Neutrophils Percent Auto 66.9 % (50-75); Platelet Count 144 X10^3/uL (150-400); Red Blood Cell Count 5.17 X10^6/uL (4.5-5.9); Red Cell Distribution Width 13.9 % (11.6-14.8); White Blood Cell Count 5.5 X10^3/uL (4.5-11.0)
[2022-11-18 08:14] LABS: INR 1.2 (0.9-1.3)
[2022-11-18 08:16] LABS: PTT Partial Thromboplastin Tim 36 SECONDS (26-36)
[2022-11-18 08:25] LABS: Alanine Aminotransferase 58 IU/L (<50); Albumin Globulin Ratio 1.2 (1.0-2.8); Alkaline Phosphatase 78 U/L (38-126); Aspartate Aminotransferase 64 IU/L (17-59); BUN Creatinine Ratio 20.8 (6-22); Bilirubin Total 0.6 mg/dL (0.2-1.3); Blood Urea Nitrogen 21 mg/dL (9-20); Calcium 8.7 mg/dL (8.4-10.2); Carbon Dioxide 27 mmol/L (22-32); Chloride 101 mmol/L (98-107); Creatine Kinase 107 U/L (55-170); Estimated Glomerular Filt Rate > 60 mL/min (>60); Globulin 3.3 g/dL (1.7-4.1); Glucose 162 mg/dL (80-110); HEMOLYSIS < 15 (0-50); Potassium 3.9 mmol/L (3.4-5.1); Sodium 136 mmol/L (137-145); Total Protein 7.3 g/dL (6.3-8.2)
[2022-11-18 08:36] LABS: Influenza A - CEPHEID Flu A NEGATIVE (NEGATIVE); Influenza B - CEPHEID Flu B NEGATIVE (NEGATIVE); Respiratory Syncytial Virus Negative (Negative)
[2022-11-18 08:37] LABS: COVID-19 CEPHEID 4-PLEX PCR Negative (Negative)
[2022-11-18 08:37] LABS: NT-proBNP (BNP-Adult 18+) 23 pg/mL (<125); Troponin I < 0.012 ng/mL (0.01-0.034)
[2022-11-18 08:52] LABS: CKMB % Relative Index 1.5 % (1.5-5.0); Creatine Kinase MB 1.65 ng/mL (<2.37)
[2022-11-18 09:33] LABS: Lipase 43 U/L (23-300)
[2022-11-18 09:43] LABS: Procalcitonin 0.07 ng/mL (<0.5)
== END 2022-11-18 10:22 | disposition home or self-care (01) ==
PROVIDERS: Emergency Provider Emergency Medicine; PCP Family Medicine
DX: J20.9 Acute bronchitis, unspecified (principal); R07.9 Chest pain, unspecified; Z20.822 Contact with and (suspected) exposure to COVID-19
CPT/HCPCS: 0241U; 36415; 71045; 80053; 82550; 82553; 83690; 83880; 84145; 84484; 85025; 85610; 85730; 93005; 99283; 99284

== ENCOUNTER 2022-11-24 07:32 | Emergency (ER) | payer MEDICARE, OTHER, SELFPAY ==
[2021-06-20 10:47] VITALS: BMI 31.9
[2022-11-24] VITALS (7 sets, daily range): BP systolic 133–195; BP diastolic 62–87; PULSE 54–64; RESP 18; TEMP 36; O2SAT 91–95; BMI 30.4
--- NOTE | 2022-11-24 07:49 | DI.CT.S_ITS ---
PROCEDURE: CT CHEST WO CON INDICATIONS: cough TECHNIQUE: Noncontrast 5 mm thick sections acquired from the pulmonary apices to the posterior costophrenic angles. 1 mm lung window, 5 mm thick coronal and sagittal and 7 mm axial MIP reformats were then acquired. For radiation dose reduction, the following was used: automated exposure control, adjustment of mA and/or kV according to patient size. COMPARISON: [facility], CT, CT CHEST ABD PEL WO CON, 04/21/2022, 18:28. [facility], CR, XR CHEST 1V, 11/18/2022, 7:32. FINDINGS: Image quality: Excellent. Lungs and pleura: There are multifocal punctate areas nodular opacities within the left lower lobe. These are new compared to prior exam. Partially calcified nodules noted along the left major fissure. Mediastinum: Heart size is normal. No pericardial effusion. No mediastinal adenopathy by size criteria. Thoracic aorta and central pulmonary arteries are normal in size. Esophagus is normal in caliber. No hiatal hernia. Bones and chest wall: No suspicious bony lesions. No vertebral body compression fractures. No axillary or supraclavicular adenopathy by size criteria. Thyroid gland is unremarkable . Abdomen: Visualized upper abdominal solid organs and bowel loops appear normal in the absence of contrast. IMPRESSION: Nodular opacities within the left lower lobe suggestive of infection or inflammation. Recommend interval follow-up to document resolution after appropriate therapy. Dictated by: Hanna Meyer M.D. on 11/24/2022 at 8:33 Approved by: Hanna Meyer M.D. on 11/24/2022 at 9:03
--- NOTE | 2022-11-24 07:51 | ED_ITS ---
HPI - URI/Sore Throat General Chief Complaint: Upper Respiratory Symptoms Stated Complaint: coughing up bloody flux last few days Time Seen by Provider: 11/24/22 07:42 History of Present Illness HPI Narrative: Patient returns for continued productive cough. Patient seen here 6 days ago for the same. No antibiotics were prescribed. Was given nasal spray. Patient has history of COPD but not requiring supplemental oxygen or regular breathing treatments. Patient stopped smoking 8 years ago. Please see notes below from previous visit here 6 days ago. Chest x-ray and viral swab were negative. CBC no leukocytosis. Patient sees Dr. Cas Marin. Patient has history of pneumonia in the past. Has multiple antibiotic allergies. Does not do with steroid medication. Patient is diabetic as well. Patient in no distress. However during exam did cough up some green sputum. No blood in it. History of Present Illness HPI Narrative: This is a 71-year-old male with history of hypertension, dyslipidemia, diabetes, BPH, degenerative disc disease and prior lumbar fusion who presents with a week of fevers, nasal congestion, green productive sputum and 12 hours of burning across his chest.? Patient states he is had fevers up to 101 F, nasal congestion has been coughing and having shortness of breath which he states it is little bit worse today.? He states last night he noticed there were some burning across the top of his chest from shoulder to shoulder.? Patient states no radiation elsewhere.? No diaphoresis.? Patient denies any nausea or vomiting.? He denies any diarrhea or constipation.? Denies any urinary symptoms.? He states the swelling in his legs is actually much better than normal.? Patient notes he is had pneumonia multiple times in the past.? He states he is had his Pneumovax in the past, he is had his COVID immunizations.? He has been trying Mucinex at home 4 times daily but stopped this as it makes him felt loopy.? Patient states he is had multiple back surgeries including fusion, he denies any cardiac history or cardiac stents or interventions.? He quit smoking tobacco about 8 years ago, 3-4 alcoholic drinks weekly, no illicit.? Dr. Marin is his primary care physician. Related Data Previous Rx's Medication Instructions Recorded Contour Test Strips #100 ea 12/25/19 atorvastatin 10 mg tablet 10 mg PO BEDTIME #90 tabs 04/08/22 tamsulosin 0.4 mg capsule (Flomax) 0.4 mg PO DAILY #90 caps 04/08/22 albuterol sulfate 90 mcg/actuation 2 puff inhalation Q4-6H PRN 05/15/22 aerosol inhaler (ProAir HFA) shortness of breath or wheezing #8.5 grams hydrocortisone 2.5 % topical cream 1 applic topical BID PRN 07/29/22 Hemorrhoids #60 grams amlodipine 5 mg tablet 5 mg PO DAILY #90 tabs 09/30/22 hydrocodone 7.5 mg-acetaminophen 1 tab PO Q4-6H PRN pain #30 tabs 09/30/22 325 mg tablet metformin 500 mg tablet,extended 500 mg PO QPM #90 tabs 09/30/22 release 24 hr clobetasol 0.05 % shampoo 1 applic topical BEDTIME 4 weeks 10/05/22 #118 mL enalapril maleate 10 mg tablet 10 mg PO BID #180 tabs 10/21/22 fluticasone propionate 50 1 spray intranasal DAILY PRN nasal 11/18/22 mcg/actuation nasal congestion #16 grams spray,suspension (Flonase Allergy Relief) loratadine 10 mg tablet 10 mg PO DAILY #14 tabs 11/18/22 benzonatate 100 mg capsule 100 mg PO TID PRN cough #20 caps 11/24/22 ipratropium 0.5 mg-albuterol 3 mg 3 ml inhalation Q4-6H PRN 11/24/22 (2.5 mg base)/3 mL nebulization shortness of breath or wheezing soln #90 mL methylprednisolone 4 mg tablets in See Rx Instructions PO .COMPLEX 11/24/22 a dose pack (Medrol (Igor)) #21 ea gabapentin 600 mg tablet 600 mg PO .5XDAILY #240 tabs 12/03/22 Allergies Allergy/AdvReac Type Severity Reaction Status Date / Time Sulfa (Sulfonamide Allergy Severe BLISTER, Verified 11/26/22 08:50 Antibiotics) skin [SULFA (SULFONAMIDE comes off ANTIBIOTICS)] my legs latex [LATEX] Allergy Mild SKIN Verified 11/26/22 08:50 IRRITATION amoxicillin [AMOXICILLIN] AdvReac Severe Makes my Verified 11/26/22 08:50 skin crawl clavulanic acid AdvReac Severe AUGMENTIN/V Verified 11/26/22 08:50 [CLAVULANIC ACID] OMITING Penicillins [PENICILLINS] AdvReac Severe NAUSEA/VOMI Verified 11/26/22 08:50 TING ciprofloxacin [CIPROFLOXACIN] AdvReac Intermediate MADE PT Verified 11/26/22 08:50 FEEL RUMMY/NAUSEA erythromycin base AdvReac Intermediate SKIN Verified 11/26/22 08:50 [ERYTHROMYCIN BASE] CRAWLING Review of Systems Review of Systems Narrative: GENERAL: negative chills, fatigue, malaise, fever, sweats. HEENT: Positive rhinorrhea and sinus pain, negative ear pain, sore throat RESPIRATORY: negative dyspnea, positive cough CARDIOVASCULAR: negative chest pain, palpitations GASTROINTESTINAL: negative nausea, vomiting, abdominal pain : negative dysuria, frequency, hematuria MUSCULOSKELETAL: negative muscle or bony pain SKIN: negative rash, skin lesions NEUROLOGIC: negative weakness, numbness ROS Unobtainable: All systems reviewed & are unremarkable except as noted in HPI and below Patient History Medical History (Updated 12/03/22 @ 00:00 by ) Anal fissure (02/2018) Anal fissure Anxiety Back pain Benign prostatic hyperplasia (01/02/15) BPH (benign prostatic hyperplasia) Cellulitis of lower extremity Controlled type 2 diabetes mellitus without complication (04/30/16) COPD (chronic obstructive pulmonary disease) Cramps of lower extremity (01/02/15) Degenerative arthritis of lumbar spine Degenerative disc disease Essential hypertension GERD (gastroesophageal reflux disease) Inflamed internal hemorrhoid (02/2018) Left sided sciatica Lumbar disc herniation with radiculopathy Osteoarthritis of lower back (09/19/14) Peripheral neuropathy Pneumonia Prepatellar bursitis of right knee Spinal stenosis Tear of rotator cuff (09/19/14) Surgical History H/O colonoscopy (07/08/15) H/O sinus surgery (2003) History of elbow surgery History of lumbar fusion (02/01/19) History of sebaceous cyst (2000) Hx of hand surgery (~2004) Hx of inguinal hernia surgery (1996) Hx of microdiscectomy (07/01/18) Status post epidural steroid injection Status post laminectomy Family History Father [place] (myocardial infarction) Grandmother Diabetes mellitus Mother Lymphoma Grandfather Colon cancer Sister Bladder cancer Social History marital status: (11/01/18) household members: none Smoking Status: Former smoker alcohol intake: current Smoking Status: Former smoker alcohol intake frequency: holidays/special occasions only Alcohol type: beer Substance Use Type: marijuana Exam Narrative Exam Narrative: GENERAL: in no distress, not toxic not dyspneic HEAD: Normocephalic. EYES: Pupils equal round ENT: Mucous membranes moist. There is bilateral nasal mucosa edema/erythema NECK: Trachea midline. CARDIOVASCULAR: Regular rate and rhythm without murmurs RESPIRATORY: There is bilateral upper and lower coarse lung sounds with mild wheezing and rhonchi. Patient speaking full sentences. GASTROINTESTINAL: Abdomen soft, non-tender EXTREMITIES: No gross deformities. BACK: No flank tenderness. NEURO: AOx4. SKIN: Warm and dry PSYCH: Not anxious, is cooperative Initial Vital Signs Initial Vital Signs: Vital Signs Temperature 96.8 F L 11/24/22 07:45 Pulse Rate 64 11/24/22 07:45 Respiratory Rate 18 11/24/22 07:45 Blood Pressure 195/87 H 11/24/22 07:45 Pulse Oximetry 95 11/24/22 07:45 Oxygen Delivery Method Room Air 11/24/22 07:45 Course Orders Ordered: Discontinued Medications Albuterol/Ipratropium (Albuterol/Ipratropium 3 Ml Ampul) 3 ml INH NOW ONE Stop: 11/24/22 08:46 Last Admin: 11/24/22 08:50 Dose: 3 ml Documented By: JanuszK Prednisone (Prednisone 20 Mg Tablet) 40 mg PO NOW ONE Stop: 11/24/22 09:29 Last Admin: 11/24/22 09:36 Dose: 40 mg Documented By: NR Vital Signs Vital signs: Vital Signs - 8 hr 11/24/22 07:45 11/24/22 08:03 Temperature 96.8 F L Pulse Rate 64 55 L Respiratory Rate 18 18 Blood Pressure 195/87 H 159/74 H Pulse Oximetry 95 95 Oxygen Delivery Method Room Air Room Air MDM - URI/Sore Throat Lab Data 11/24/22 08:04 11/24/22 08:04 Labs: Lab Results 11/24/22 11/24/22 11/24/22 Range/Units 08:04 08:04 08:04 WBC 6.6 (4.5-11.0) X10^3/uL RBC 5.10 (4.5-5.9) X10^6/uL Hgb 14.5 (13.5-17.5) g/dL Hct 43.0 (41-53) % MCV 84.3 (80-100) fL MCH 28.3 (26-34) PG MCHC 33.6 (30-36) % RDW 13.7 (11.6-14.8) % Plt Count 204 (150-400) X10^3/uL Neut % (Auto) 70.4 (50-75) % Lymph % (Auto) 18.5 L (25-40) % [place] % (Auto) 6.5 (3-14) % Eos % (Auto) 1.9 L (2-4) % Baso % (Auto) 2.7 H (0-2) % Neut # (Auto) 4600 (2039-7614) /uL Lymph # (Auto) 1200 (8754-2094) /uL [place] # (Auto) 400 (0-900) /uL Eos # (Auto) 100 (0-450) /uL Baso # (Auto) 200 H (0-100) /uL Sodium 137 (137-145) mmol/L Potassium 4.1 (3.4-5.1) mmol/L Chloride 101 (98-107) mmol/L Carbon Dioxide 28 (22-32) mmol/L BUN 14 (9-20) mg/dL Creatinine 0.89 (0.66-1.25) mg/dL Estimated GFR > 60 (>60) mL/min BUN/Creatinine Ratio 15.7 (6-22) Glucose 136 H (80-110) mg/dL Lactate 2.0 (0.7-2.1) mmol/L Calcium 8.6 (8.4-10.2) mg/dL Total Bilirubin 0.6 (0.2-1.3) mg/dL AST 56 (17-59) IU/L ALT 54 H (<50) IU/L Alkaline Phosphatase 70 (38-126) U/L Total Protein 7.3 (6.3-8.2) g/dL Albumin 4.0 (3.5-5.0) g/dL Globulin 3.3 (1.7-4.1) g/dL Albumin/Globulin Ratio 1.2 (1.0-2.8) Procalcitonin 0.06 (<0.5) ng/mL Chlamy pneumoniae PCR (Not Detect) Adenovirus (PCR) (Not Detect) B. pertussis DNA (PCR) (Not Detecte) B.parapertussis DNA PCR (Not Detecte) Coronavirus OC43 (PCR) (Not Detect) Coronavirus HKU1 (PCR) (Not Detect) Coronavirus 229E (PCR) (Not Detect) SARS-CoV-2 (PCR) (Not Detecte) Coronavirus NL63 (PCR) (Not Detect) Human Metapneumovir PCR (Not Detect) Influenza Type A (PCR) (Not Detect) Influenza Type B (PCR) (Not Detect) M. pneumoniae (PCR) (Not Detect) Parainfluenza 1 (PCR) (Not Detect) Parainfluenza 2 (PCR) (Not Detect) Parainfluenza 3 (PCR) (Not Detect) Parainfluenza 4 (PCR) (Not Detect) RSV (PCR) (Not Detect) Entero/Rhino (PCR) (Not Detect) 11/24/22 Range/Units 08:04 WBC (4.5-11.0) X10^3/uL RBC (4.5-5.9) X10^6/uL Hgb (13.5-17.5) g/dL Hct (41-53) % MCV (80-100) fL MCH (26-34) PG MCHC (30-36) % RDW (11.6-14.8) % Plt Count (150-400) X10^3/uL Neut % (Auto) (50-75) % Lymph % (Auto) (25-40) % [place] % (Auto) (3-14) % Eos % (Auto) (2-4) % Baso % (Auto) (0-2) % Neut # (Auto) (2785-5307) /uL Lymph # (Auto) (0878-8018) /uL [place] # (Auto) (0-900) /uL Eos # (Auto) (0-450) /uL Baso # (Auto) (0-100) /uL Sodium (137-145) mmol/L Potassium (3.4-5.1) mmol/L Chloride (98-107) mmol/L Carbon Dioxide (22-32) mmol/L BUN (9-20) mg/dL Creatinine (0.66-1.25) mg/dL Estimated GFR (>60) mL/min BUN/Creatinine Ratio (6-22) Glucose (80-110) mg/dL Lactate (0.7-2.1) mmol/L Calcium (8.4-10.2) mg/dL Total Bilirubin (0.2-1.3) mg/dL AST (17-59) IU/L ALT (<50) IU/L Alkaline Phosphatase (38-126) U/L Total Protein (6.3-8.2) g/dL Albumin (3.5-5.0) g/dL Globulin (1.7-4.1) g/dL Albumin/Globulin Ratio (1.0-2.8) Procalcitonin (<0.5) ng/mL Chlamy pneumoniae PCR Not detected (Not Detect) Adenovirus (PCR) Not detected (Not Detect) B. pertussis DNA (PCR) Not detected (Not Detecte) B.parapertussis DNA PCR Not detected (Not Detecte) Coronavirus OC43 (PCR) Not detected (Not Detect) Coronavirus HKU1 (PCR) Not detected (Not Detect) Coronavirus 229E (PCR) Not detected (Not Detect) SARS-CoV-2 (PCR) Not detected (Not Detecte) Coronavirus NL63 (PCR) Not detected (Not Detect) Human Metapneumovir PCR Detected H (Not Detect) Influenza Type A (PCR) Not detected (Not Detect) Influenza Type B (PCR) Not detected (Not Detect) M. pneumoniae (PCR) Not detected (Not Detect) Parainfluenza 1 (PCR) Not detected (Not Detect) Parainfluenza 2 (PCR) Not detected (Not Detect) Parainfluenza 3 (PCR) Not detected (Not Detect) Parainfluenza 4 (PCR) Not detected (Not Detect) RSV (PCR) Not detected (Not Detect) Entero/Rhino (PCR) Not detected (Not Detect) Imaging Data CT scan - chest: Radiologist's Impression: PROCEDURE:? CT CHEST WO CON ? INDICATIONS:? cough ? TECHNIQUE: Noncontrast 5 mm thick sections acquired from the pulmonary apices to the posterior costophrenic angles.? 1 mm lung window, 5 mm thick coronal and sagittal and 7 mm axial MIP reformats were then acquired.? For radiation dose reduction, the following was used:? automated exposure control, adjustment of mA and/or kV according to patient size.? ? COMPARISON:? [facility], CT, CT CHEST ABD PEL WO CON, 04/21/2022, 18:28.? [facility], CR, XR CHEST 1V, 11/18/2022, 7:32. ? FINDINGS:? Image quality:? Excellent.? ? Lungs and pleura:? There are multifocal punctate areas nodular opacities within the left lower lobe.? These are new compared to prior exam.? Partially calcified nodules noted along the left major fissure. ? Mediastinum:? Heart size is normal.? No pericardial effusion.? No mediastinal adenopathy by size criteria.? Thoracic aorta and central pulmonary arteries are normal in size.? Esophagus is normal in caliber.? No hiatal hernia.? ? Bones and chest wall:? No suspicious bony lesions.? No vertebral body compress ion fractures.? No axillary or supraclavicular adenopathy by size criteria.? Thyroid gland is unremarkable .? ? Abdomen:? Visualized upper abdominal solid organs and bowel loops appear normal in the absence of contrast.? ? IMPRESSION:? ? Nodular opacities within the left lower lobe suggestive of infection or inflammation.? Recommend interval follow-up to document resolution after appropriate therapy. ? ? Dictated by: Hanna Meyer M.D. on 11/24/2022 at 8:33 ? ? Approved by: Hanna Meyer M.D. on 11/24/2022 at 9:03 ? [facility] Narrative Medical decision making narrative: Patient returns for continued productive cough. Patient seen here 6 days ago for the same. No antibiotics were prescribed. Was given nasal spray. Patient has history of COPD but not requiring supplemental oxygen or regular breathing treatments. Patient stopped smoking 8 years ago. Please see notes below from previous visit here 6 days ago. Chest x-ray and viral swab were negative. CBC no leukocytosis. Patient sees Dr. Cas Marin. Patient has history of pneumonia in the past. Has multiple antibiotic allergies. Does not do with steroid medication. Patient is diabetic as well. Patient in no distress. However during exam did cough up some green sputum. No blood in it. After history and exam CBC CMP lactic acid procalcitonin CT chest ordered [facility] CC: Upper respiratory infection Complicating co-morbidities: Diabetes COPD Data collected from: Patient Medical records reviewed: Your visit here 6 days ago. Patient prescribed Flonase as well as loratadine Differential considered: Includes but not limited to pneumonia bronchitis COPD exacerbation seasonal allergies Exam documented above, pertinent findings include: Bilateral coarse lung sounds Lab Test results independently reviewed as above. Pertinent findings: WBC 6.6 sodium 137 potassium 4.1 creatinine 0.89 GFR greater than 60 glucose 136 lactic acid 2.0 procalcitonin 0.06, viral swab positive for human metapneumovirus Imaging studies independently reviewed: Nodular opacities within the left lower lobe suggestive of infection or inflammation.? Recommend interval follow-up to document resolution after appropriate therapy. Treatments: DuoNeb/prednisone Re-evaluations: Patient feeling better after DuoNeb treatment. Lung sounds are much more clear. Speaking full sentences. No respiratory distress. Reviewed results with patient. He does agree with steroid tapering he has done that before without difficulties and he does understand that his glucose levels may elevate and he will monitor this. He will see family doctor for re-evaluation and referral to Pulmonary Services. Agrees with nebulizing treatments at home prescription provided. He does understand no antibiotics for viral infections Discussion: Appropriate for discharge home. Not toxic at discharge. Patient understands it will take time for this viral infection to improve. He does have primary care Dr. Cas Marin to follow up with and get referral for Pulmonary Services. He agrees with steroid tapering short course. Prescription for nebulizer machine as well as DuoNeb provided as well as Tessalon Perles. Return precautions reviewed with him. Lung sounds improved at time of discharge. Nontoxic. Exam and labs and imaging reassuring Diagnosis: Metapneumovirus bronchitis Discharge Plan Departure Patient Disposition: Home Clinical Impression: Acute bronchitis due to human metapneumovirus Instructions: DI for Acute Bronchitis Activity Restrictions/Additional Instructions: Please continue steroid pack tomorrow. May use breathing treatment every 4 hours as needed for cough and wheezing. Please see family doctor within a week for re-evaluation and get referral to Pulmonary Services. Return if worse if any questions or concerns. Cough medication has been provided for you as well. You have been diagnosed with viral bronchitis that does not require antibiotics. The virus is human metapneumovirus. Prescriptions: New benzonatate 100 mg capsule 100 mg PO TID PRN (Reason: cough) Qty: 20 0RF ipratropium-albuterol 0.5 mg-3 mg(2.5 mg base)/3 mL solution for nebulization 3 ml inhalation Q4-6H PRN (Reason: shortness of breath or wheezing) Qty: 90 0RF methylprednisolone [Medrol (Igor)] 4 mg tablets,dose pack See Rx Instructions .ROUTE .COMPLEX Qty: 21 0RF Rx Instructions: orally per package directions No Action hydrocortisone 2.5 % cream 1 applic TOP BID PRN (Reason: Hemorrhoids) Qty: 60 3RF metformin 500 mg tablet extended release 24 hr 500 mg PO QPM Qty: 90 1RF Rx Instructions: Take one tablet with evening meal once daily amlodipine 5 mg tablet 5 mg PO DAILY Qty: 90 1RF Rx Instructions: Take one tablet once daily with Enalapril (either a.m. or p.m. Enalapril) hydrocodone-acetaminophen 7.5-325 mg tablet 1 tab PO Q4-6H PRN (Reason: pain) Qty: 30 0RF Rx Instructions: Take 1 tablets every 4-6 hours as needed for pain albuterol sulfate [ProAir HFA] 90 mcg/actuation HFA aerosol inhaler 2 puff inhalation Q4-6H PRN (Reason: shortness of breath or wheezing) Qty: 8.5 0RF (DME) Contour Test Strips 0 .Route .MEDSUPPLY Qty: 100 0RF Rx Instructions: Use daily as directed to monitor blood glucose. tamsulosin [Flomax] 0.4 mg capsule 0.4 mg PO DAILY Qty: 90 3RF atorvastatin 10 mg tablet 10 mg PO BEDTIME Qty: 90 3RF clobetasol 0.05 % shampoo 1 applic topical BEDTIME 28 Days Qty: 118 1RF enalapril maleate 10 mg tablet 10 mg PO BID Qty: 180 1RF gabapentin 600 mg tablet 600 mg PO .5XDAILY Qty: 240 3RF fluticasone propionate [Flonase Allergy Relief] 50 mcg/actuation spray,suspension 1 spray intranasal DAILY PRN (Reason: nasal congestion) Qty: 16 0RF Rx Instructions: administer into each nostril loratadine 10 mg tablet 10 mg PO DAILY Qty: 14 0RF Referrals: Cas Marin MD [Primary Care Provider] - Stand Alone Forms: Patient Portal/API
[2022-11-24 08:15] LABS: Add Manual Diff / Slide Review NO; Basophils Absolute Auto 200 /uL (0-100); Basophils Percent Auto 2.7 % (0-2); Eosinophils Absolute Auto 100 /uL (0-450); Eosinophils Percent Auto 1.9 % (2-4); Hemoglobin 14.5 g/dL (13.5-17.5); Lymphocytes Absolute Auto 1200 /uL (1100-4500); Lymphocytes Percent Auto 18.5 % (25-40); Mean Corpuscular HGB Conc 33.6 % (30-36); Mean Corpuscular Hemoglobin 28.3 PG (26-34); Mean Corpuscular Volume 84.3 fL (80-100); Monocytes Absolute Auto 400 /uL (0-900); Monocytes Percent Auto 6.5 % (3-14); Neutrophils Absolute Auto 4600 /uL (1500-7000); Neutrophils Percent Auto 70.4 % (50-75); Platelet Count 204 X10^3/uL (150-400); Red Cell Distribution Width 13.7 % (11.6-14.8); White Blood Cell Count 6.6 X10^3/uL (4.5-11.0)
[2022-11-24 08:26] LABS: Alanine Aminotransferase 54 IU/L (<50); Albumin Globulin Ratio 1.2 (1.0-2.8); Alkaline Phosphatase 70 U/L (38-126); Aspartate Aminotransferase 56 IU/L (17-59); BUN Creatinine Ratio 15.7 (6-22); Bilirubin Total 0.6 mg/dL (0.2-1.3); Blood Urea Nitrogen 14 mg/dL (9-20); Calcium 8.6 mg/dL (8.4-10.2); Carbon Dioxide 28 mmol/L (22-32); Chloride 101 mmol/L (98-107); Estimated Glomerular Filt Rate > 60 mL/min (>60); Globulin 3.3 g/dL (1.7-4.1); Glucose 136 mg/dL (80-110); HEMOLYSIS < 15 (0-50); Potassium 4.1 mmol/L (3.4-5.1); Sodium 137 mmol/L (137-145); Total Protein 7.3 g/dL (6.3-8.2)
[2022-11-24 08:43] LABS: Procalcitonin 0.06 ng/mL (<0.5)
[2022-11-24] MEDS: ALBUTEROL/IPRATROPIUM 3 ML AMPUL INH (08:50)
[2022-11-24 09:07] LABS: Adenovirus Not Detected (Not Detect); B. parapertussis Not Detected (Not Detecte); Bordetella pertussis Not Detected (Not Detecte); Chlamydophila pneumoniae Not Detected (Not Detect); Coronavirus 229E Not Detected (Not Detect); Coronavirus HKU1 Not Detected (Not Detect); Coronavirus NL 63 Not Detected (Not Detect); Coronavirus OC43 Not Detected (Not Detect); Human Metapneumovirus Detected (Not Detect); Human Rhinovirus/Enterovirus Not Detected (Not Detect); Influenza A Not Detected (Not Detect); Influenza B Not Detected (Not Detect); Mycoplasma pneumoniae Not Detected (Not Detect); Parainfluenza Virus 1 Not Detected (Not Detect); Parainfluenza Virus 2 Not Detected (Not Detect); Parainfluenza Virus 3 Not Detected (Not Detect); Parainfluenza Virus 4 Not Detected (Not Detect); Respiratory Syncytial Virus Not Detected (Not Detect); SARS- CoV-2 Not Detected (Not Detecte)
[2022-11-24] MEDS: predniSONE 20 MG TABLET 40 MG PO (09:36)
== END 2022-11-24 09:54 | disposition home or self-care (01) ==
PROVIDERS: Emergency Provider Emergency Medicine; PCP Family Medicine
DX: J20.8 Acute bronchitis due to other specified organisms (principal); Z20.822 Contact with and (suspected) exposure to COVID-19
CPT/HCPCS: 36415; 71250; 80053; 83605; 84145; 85025; 87633; 99284

== ENCOUNTER → 2022-12-10 06:40 | Outpatient (CLI) | payer MEDICARE, OTHER, SELFPAY ==
[2021-06-20 10:47] VITALS: BMI 31.9
--- NOTE | 2022-12-18 16:45 | PM.PFT.1 ---
Pulmonary Function Test Referral & Results Date Patient Seen: 12/10/22 Results: The spirometry demonstrates an FVC of 2.70 L which is 69% of predicted. The FEV1 was measured at 1.77 L which is 62% of predicted. The FEV1/FVC ratio was 66 which is 89% of predicted. Following the administration of bronchodilator there was an 18% improvement in FEV1 and an 85% improvement in FEF 25-75%. Lung volumes show an SVC of 3.04 L which is 72% of predicted. The diffusing capacity was measured at 21.76 which is 74% of predicted. No hemoglobin value was provided, so no correction for potential anemia could be made, if appropriate. The maximum voluntary ventilation was reduced Interpretation: This study demonstrates moderate obstructive lung disease based on reduction FEV1 although FEV1/FVC ratio is relatively preserved there is evidence of notable benefit following bronchodilator administration particularly in small airway flow is demonstrated by the improvement in FEF 25-75% as above There is a minimal reduction in lung volumes suggesting the presence of mild restrictive lung disease There is also minimal reduction in diffusing capacity suggesting the presence of disease at the capillary alveolar level Compared to PFTs performed in January 2015, current study shows decline in FEV1 and lung volumes. Previous diffusing capacity was also normal which has changed as above Clinical correlation suggested
== END ==
PROVIDERS: PCP Family Medicine; Referring Provider Physician Assistant; Visit Provider Physician Assistant
DX: J44.9 Chronic obstructive pulmonary disease, unspecified (principal); J20.8 Acute bronchitis due to other specified organisms; B97.81 Human metapneumovirus as the cause of diseases classified elsewhere; Z87.891 Personal history of nicotine dependence
CPT/HCPCS: 94060; 94726; 94729

== ENCOUNTER → 2022-12-23 06:57 | Outpatient (CLI) | payer MEDICARE, OTHER, SELFPAY ==
[2021-06-20 10:47] VITALS: BMI 31.9
[2022-12-23 08:02] LABS: Cholesterol 114 mg/dL (140-199); HDL Cholesterol 29 mg/dL (40-60); LDL Cholesterol Calculated 61 mg/dL (<100); Triglycerides 119 mg/dL (35-150)
[2022-12-24 01:59] LABS: x Labcorp Estim. Avg Glu (eAG) 220 mg/dL (.); x Labcorp Hemoglobin A1c 9.3 % (4.8-5.6)
== END ==
PROVIDERS: PCP Family Medicine; Referring Provider Family Medicine; Visit Provider Family Medicine
DX: E78.2 Mixed hyperlipidemia (principal); I10 Essential (primary) hypertension; E11.65 Type 2 diabetes mellitus with hyperglycemia
CPT/HCPCS: 36415; 80061; 83036; 84443

== ENCOUNTER → 2023-01-05 10:25 | Outpatient (CLI) | payer MEDICARE, OTHER, SELFPAY ==
[2021-06-20 10:47] VITALS: BMI 31.9
--- NOTE | 2023-01-14 10:28 | DIAB.MNTFU ---
Follow-up Diabetes Medical Nutrition Therapy Assessment Name: Ryland Quevedo Date: 01/05/23 Time: 905-10a Dx: Type II Diabetes Ryland presents for DM follow-up today. No change in HgA1c, 9.3%. Lifestyle changes are the main barrier. Ryland prefers to eat out when working during the week, which results in high carb intake. States he cut out breakfast potatoes and pasta lately. Skipping toast when eating breakfast out or choosing ww option. At home choose lower carb bread (8g CHO per slice). Continues to eat out at lunch daily during the week, which likely exacerbates hyperglycemia and HTN. States he is busy in the morning and finds it difficult to pack a lunch for the day. States prior to his passing, she would help him make healthier choices and he had lost 30#. Increased water intake and choosing diet juice options. Since last visit he has tried the tuna salad with veggies at home. Also enjoys the shredded chicken. Rx'd 5mg glipizide but has not started. States he is unclear if this has been sent to his pharmacy. RD/HARSHILES contact provider office and glipizide has been sent to his mail pharmacy. Anthropometrics: Ht: 5'7.5 Wt: 211# at PCP visit Physical Activity: Work is his main source of movement. No program in place. Tired on weekends. Self-Monitoring Blood Glucose: Checking periodically. Diabetes Medications: 500mg Metformin XR Pertinent Labs: HgA1c: 12/2022: 9.3% 09/2022: 9.3% 07/2022: 8.5% 01/2022 7.6% 07/2021 6.6% 01/2021 6.8% 02/2020 6.5% 04/2019 6.2% Past Medical History: (Last Updated 11/26/22 @ 09:32 by Chandni Del Real PA-C) Anal fissure (02/2018) Anal fissure Anxiety R/T inability to work; anxious to return Back pain Benign prostatic hyperplasia (01/02/15) BPH (benign prostatic hyperplasia) Cellulitis of lower extremity Controlled type 2 diabetes mellitus without complication (04/30/16) COPD (chronic obstructive pulmonary disease) Cramps of lower extremity (01/02/15) Degenerative arthritis of lumbar spine Degenerative disc disease Essential hypertension GERD (gastroesophageal reflux disease) Inflamed internal hemorrhoid (02/2018) Left sided sciatica Lumbar disc herniation with radiculopathy Osteoarthritis of lower back (09/19/14) Peripheral neuropathy Pneumonia Prepatellar bursitis of right knee Spinal stenosis Tear of rotator cuff (09/19/14) Nutrition Rx: Carbohydrates: Daily: 189g Meal:45g Snack:15-30g Nutrition Diagnosis: Excessive CHO intake r/t nutrition knowledge deficit and stage of change aeb eating out, diet recall - in progress Excessive sodium intake r/t knowledge deficit and stage of change aeb diet recall of eating out frequency, canned foods, and TV dinners - in progress Inadequate fiber intake r/t processed food intake aeb diet recall of limited vegetables and whole grains- in progress Inadequate fluids intake r/t stage of change aeb diet recall of <1L water per day- improved Intervention: This participant was very receptive. Provided appropriate educational handouts. Discussed the following topics: Complications associated with elevated BG and HgA1c hgA1c goals Impact of eating out on overall health Strategies for taking lunch, ie packing lunch night before Medication management: glipizide action Created SMART goals for patient self-care and success. Goals: Try tuna with veggies at lunch-in progress Try shredded chicken- met Skip toast on weekend breakfast- improved Increase water intake to 1L+- improved Bring lunch at least 1 day per week- new Try bringing chicken salad- new Check FBG- new Follow-up: DONNA JLUIEN follow-up in 3-4 weeks Aleah Farah RDN, ANAYA Certified Diabetes Care and Operations Section Manager P: [phone] Thank you for this referral
== END ==
PROVIDERS: PCP Family Medicine; Referring Provider Family Medicine; Visit Provider Family Medicine
DX: E11.9 Type 2 diabetes mellitus without complications (principal); E78.5 Hyperlipidemia, unspecified; I10 Essential (primary) hypertension; Z71.3 Dietary counseling and surveillance; Z79.84 Long term (current) use of oral hypoglycemic drugs
CPT/HCPCS: 97803

== ENCOUNTER → 2023-01-08 17:11 | Outpatient (CLI) | payer MEDICARE, OTHER, SELFPAY ==
[2021-06-20 10:47] VITALS: BMI 31.9
--- NOTE | 2023-01-08 17:12 | DI.RAD.S_ITS ---
PROCEDURE: XR KNEE RT 3V INDICATIONS: Right knee pain TECHNIQUE: 3 views of the knee were acquired. COMPARISON: [facility], CR, XR KNEE LT 3V, 12/28/2019, 8:22. FINDINGS: Bones: No fractures or dislocations. There is mild joint space narrowing in the medial compartment. No suspicious bony lesions. Soft tissues: There is a small joint effusion. No suspicious soft tissue calcifications. IMPRESSION: 1. No acute bony abnormality. 2. Mild joint space narrowing in the medial compartment. 3. Small joint effusion. Dictated by: Ismael Doll M.D. on 01/09/2023 at 0:02 Approved by: Ismael Doll M.D. on 01/09/2023 at 0:02
== END ==
PROVIDERS: PCP Family Medicine; Referring Provider Nurse Practitioner Family; Visit Provider Nurse Practitioner Family
DX: M25.561 Pain in right knee (principal); M25.461 Effusion, right knee
CPT/HCPCS: 73562

== ENCOUNTER → 2023-01-29 08:19 | Outpatient (CLI) | payer MEDICARE, OTHER, SELFPAY ==
[2021-06-20 10:47] VITALS: BMI 31.9
--- NOTE | 2023-02-18 15:07 | DIAB.FU ---
Follow-up Diabetes Education Assessment Name: Ryland Quevedo Date: 01/29/23 Time: 915-862w Dx: Type II Diabetes Ryland presents for follow-up DM visit. Endorses weight loss. States he is down a notch on his belt. Weight today 209# with clothing/shoes, similar to last PCP visit. Has called mail pharmacy as discussed last visit. Glipizide rx has been filled and he should receive rx by 7-10 days. Using salt sub to reduce Na intake. Still struggling with remembering to bring lunch to work to reduce fast food intake. Anthropometrics: Ht: 5'7.5 Wt: 209# today Self-Monitoring Blood Glucose: Inconsistent. Not checking any FBG. Last postprandial check was 210mg/dl which worried him. Diabetes Medications: 500mg Metformin XR 5mg Glipizide (not taking yet) Pertinent Labs: HgA1c: 12/2022: 9.3% 09/2022: 9.3% 07/2022: 8.5% 01/2022 7.6% 07/2021 6.6% 01/2021 6.8% 02/2020 6.5% 04/2019 6.2% Past Medical History: (Last Updated 11/26/22 @ 09:32 by Chandni Del Real PA-C) Anal fissure (02/2018) Anal fissure Anxiety R/T inability to work; anxious to return Back pain Benign prostatic hyperplasia (01/02/15) BPH (benign prostatic hyperplasia) Cellulitis of lower extremity Controlled type 2 diabetes mellitus without complication (04/30/16) COPD (chronic obstructive pulmonary disease) Cramps of lower extremity (01/02/15) Degenerative arthritis of lumbar spine Degenerative disc disease Essential hypertension GERD (gastroesophageal reflux disease) Inflamed internal hemorrhoid (02/2018) Left sided sciatica Lumbar disc herniation with radiculopathy Osteoarthritis of lower back (09/19/14) Peripheral neuropathy Pneumonia Prepatellar bursitis of right knee Spinal stenosis Tear of rotator cuff (09/19/14) Intervention: This participant was very receptive. Provided appropriate educational handouts. Discussed the following topics: Action of Glipizide Strategies for bringing lunch Importance of SMBG and determining trends Review of general nutrition recommendations and current intake Complication risk with chronic hyperglycemia and elevated HgA1c Goals: Bring lunch at least 1 day per week- in progress Try bringing chicken salad- not met Check FBG- not met Start Glipizide- new Restart SMBG 1-2x per day- new Follow-up: DONNA JULIEN follow-up in 2-3 weeks Aleah Farah RDN, ANAYA Certified Diabetes Care and Crankshaft Straightener P: [phone] Thank you for this referral
== END ==
PROVIDERS: PCP Family Medicine; Referring Provider Family Medicine; Visit Provider Family Medicine
DX: E11.9 Type 2 diabetes mellitus without complications (principal); Z79.84 Long term (current) use of oral hypoglycemic drugs; Z71.3 Dietary counseling and surveillance
CPT/HCPCS: G0108

== ENCOUNTER → 2023-02-19 08:51 | Outpatient (CLI) | payer MEDICARE, OTHER, SELFPAY ==
[2021-06-20 10:47] VITALS: BMI 31.9
--- NOTE | 2023-03-04 11:48 | DIAB.FU ---
Follow-up Diabetes Education Assessment Name: Ryland Quevedo Date: 02/19/23 Time: 933-487n Dx: Type II Diabetes Ryland presents for DM follow-up. States he continues to have a difficult time with nutrition changes. We have been working on bringing lunch so he will reduce fast food intake, but this has been repeatedly difficult. Today he has questions regarding frozen meals. Though these can also be high in sodium, they may be a good lower carb options for him that is more realistic. Also has questions about meal order programs. Current diet recall indicates high carb intake with fast food and hungry man frozen meals. Also high sodium intake with these choices and 5 hot dogs, no bun, in a sitting. States son wants to also go on a diet with him. States he would like a medication to reduce his appetite. Self-Monitoring Blood Glucose: No log book or meter for review. Reports most BG 150-250s. Chekcing FBG and pre meal. Often forgets to check per report. Diabetes Medications: 500mg Metformin XR 5mg Glipizide Pertinent Labs: HgA1c: 12/2022: 9.3% 09/2022: 9.3% 07/2022: 8.5% 01/2022 7.6% 07/2021 6.6% 01/2021 6.8% 02/2020 6.5% 04/2019 6.2% Past Medical History: (Last Updated 11/26/22 @ 09:32 by Chandni Del Real PA-C) Anal fissure (02/2018) Anal fissure Anxiety R/T inability to work; anxious to return Back pain Benign prostatic hyperplasia (01/02/15) BPH (benign prostatic hyperplasia) Cellulitis of lower extremity Controlled type 2 diabetes mellitus without complication (04/30/16) COPD (chronic obstructive pulmonary disease) Cramps of lower extremity (01/02/15) Degenerative arthritis of lumbar spine Degenerative disc disease Essential hypertension GERD (gastroesophageal reflux disease) Inflamed internal hemorrhoid (02/2018) Left sided sciatica Lumbar disc herniation with radiculopathy Osteoarthritis of lower back (09/19/14) Peripheral neuropathy Pneumonia Prepatellar bursitis of right knee Spinal stenosis Tear of rotator cuff (09/19/14) Intervention: This participant was very receptive. Provided appropriate educational handouts. Discussed the following topics: Recent blood sugar results and trends Medication management: different options, affordability, action Heart health: sodium, label reading Carb recs and label reading Review of general nutrition recommendations and current intake Prevention of complications SMBG goals and recs Created SMART goals for patient self-care and success. Goals: Start Glipizide- met Restart SMBG 1-2x per day- in progress Check out frozen meals with less than 50g CHO and less than 600mg Na- new Check out meal order options discussed- new Check FBG and HS BG- new Follow-up: DONNA JULIEN follow-up in 2-3 weeks Aleah Farah RDN, ANAYA Certified Diabetes Care and Machine Chocolate Molder P: [phone] Thank you for this referral
== END ==
PROVIDERS: PCP Family Medicine; Referring Provider Family Medicine; Visit Provider Family Medicine
DX: E11.9 Type 2 diabetes mellitus without complications (principal); Z79.84 Long term (current) use of oral hypoglycemic drugs; Z71.3 Dietary counseling and surveillance
CPT/HCPCS: G0108

== ENCOUNTER → 2023-03-11 07:47 | Outpatient (CLI) | payer MEDICARE, OTHER, SELFPAY ==
[2021-06-20 10:47] VITALS: BMI 31.9
[2023-03-11 08:41] LABS: Add Manual Diff / Slide Review NO; Basophils Absolute Auto 100 /uL (0-100); Eosinophils Absolute Auto 100 /uL (0-450); Eosinophils Percent Auto 2.1 % (2-4); Hematocrit 44.2 % (41-53); Lymphocytes Absolute Auto 1000 /uL (1100-4500); Lymphocytes Percent Auto 14.5 % (25-40); Mean Corpuscular HGB Conc 33.8 % (30-36); Mean Corpuscular Hemoglobin 28.7 PG (26-34); Mean Corpuscular Volume 84.9 fL (80-100); Monocytes Absolute Auto 400 /uL (0-900); Monocytes Percent Auto 5.9 % (3-14); Neutrophils Absolute Auto 5400 /uL (1500-7000); Neutrophils Percent Auto 76.5 % (50-75); Platelet Count 175 X10^3/uL (150-400); Red Blood Cell Count 5.21 X10^6/uL (4.5-5.9); Red Cell Distribution Width 13.9 % (11.6-14.8); White Blood Cell Count 7.1 X10^3/uL (4.5-11.0)
[2023-03-11 08:54] LABS: Alanine Aminotransferase 69 IU/L (<50); Albumin 4.6 g/dL (3.5-5.0); Albumin Globulin Ratio 1.4 (1.0-2.8); Alkaline Phosphatase 77 U/L (38-126); Aspartate Aminotransferase 76 IU/L (17-59); BUN Creatinine Ratio 16.7 (6-22); Bilirubin Total 0.9 mg/dL (0.2-1.3); Blood Urea Nitrogen 16 mg/dL (9-20); Calcium 9.4 mg/dL (8.4-10.2); Carbon Dioxide 29 mmol/L (22-32); Chloride 97 mmol/L (98-107); Estimated Glomerular Filt Rate > 60 mL/min (>60); Globulin 3.3 g/dL (1.7-4.1); Glucose 138 mg/dL (80-110); HEMOLYSIS < 15 (0-50); Potassium 4.3 mmol/L (3.4-5.1); Sodium 137 mmol/L (137-145); Total Protein 7.9 g/dL (6.3-8.2)
[2023-03-12 05:54] LABS: Labcorp Hemoglobin (Hb) A1c 8.2 % (4.8-5.6)
== END ==
PROVIDERS: PCP Family Medicine; Referring Provider Nurse Practitioner Family; Visit Provider Ophthalmology
DX: E11.9 Type 2 diabetes mellitus without complications (principal)
CPT/HCPCS: 36415; 80053; 83036; 85025

== ENCOUNTER 2023-03-22 09:56 | Day surgery (SDC) | payer MEDICARE, OTHER, SELFPAY ==
[2021-06-20 10:47] VITALS: BMI 31.9
[2023-03-22] VITALS (10 sets, daily range): BP systolic 144–171; BP diastolic 63–81; PULSE 62–76; RESP 12–19; TEMP 35.9–36.4; O2SAT 91–96; BMI 31.4
--- NOTE | 2023-03-22 09:06 | PM.HP.1 ---
History of Present Illness History of Present Illness Chief complaint: Bilateral Blepharoplasty Two Lids Standard/Ectropi Narrative: Fasting blood glucose is reported as 136 in pre-operative holding. [facility] Medical History Anal fissure (02/2018) Anal fissure Anxiety Back pain Benign prostatic hyperplasia (01/02/15) BPH (benign prostatic hyperplasia) Cellulitis of lower extremity Controlled type 2 diabetes mellitus without complication (04/30/16) COPD (chronic obstructive pulmonary disease) Cramps of lower extremity (01/02/15) Degenerative arthritis of lumbar spine Degenerative disc disease Essential hypertension GERD (gastroesophageal reflux disease) Inflamed internal hemorrhoid (02/2018) Left sided sciatica Lumbar disc herniation with radiculopathy Osteoarthritis of lower back (09/19/14) Peripheral neuropathy Pneumonia Prepatellar bursitis of right knee Spinal stenosis Tear of rotator cuff (09/19/14) Surgical History H/O colonoscopy (07/08/15) H/O sinus surgery (2003) History of elbow surgery History of lumbar fusion (02/01/19) History of sebaceous cyst (2000) Hx of hand surgery (~2004) Hx of inguinal hernia surgery (1996) Hx of microdiscectomy (07/01/18) Status post epidural steroid injection Status post laminectomy Family History Father [place] (myocardial infarction) Grandmother Diabetes mellitus Mother Lymphoma Grandfather Colon cancer Sister Bladder cancer Social History marital status: (11/01/18) household members: none Smoking Status: Former smoker alcohol intake: current Meds Home Medications and Allergies Home Medications Medication Instructions Recorded Confirmed Type Contour Test Strips #100 ea 12/25/19 03/04/23 Rx albuterol sulfate 90 mcg/actuation 2 puff inhalation Q4-6H PRN 05/15/22 03/22/23 Rx aerosol inhaler (ProAir HFA) shortness of breath or wheezing #8.5 grams hydrocortisone 2.5 % topical cream 1 applic topical BID PRN 07/29/22 03/22/23 Rx Hemorrhoids #60 grams clobetasol 0.05 % shampoo 1 applic topical BEDTIME 4 weeks 10/05/22 03/22/23 Rx #118 mL fluticasone propionate 50 1 spray intranasal DAILY PRN nasal 11/18/22 03/22/23 Rx mcg/actuation nasal congestion #16 grams spray,suspension (Flonase Allergy Relief) hydrocodone 7.5 mg-acetaminophen 1 tab PO Q4-6H PRN pain #30 tabs 12/11/22 03/22/23 Rx 325 mg tablet atorvastatin 10 mg tablet 10 mg PO BEDTIME #90 tabs 12/31/22 03/22/23 Rx enalapril maleate 20 mg tablet 20 mg PO BID #180 tabs 12/31/22 03/22/23 Rx metformin 500 mg tablet,extended 500 mg PO QPM #90 tabs 12/31/22 03/22/23 Rx release 24 hr tamsulosin 0.4 mg capsule (Flomax) 0.4 mg PO DAILY #90 caps 12/31/22 03/22/23 Rx glipizide 5 mg tablet 5 mg PO DAILY #90 tabs 01/14/23 03/22/23 Rx gabapentin 600 mg tablet 600 mg PO .5XDAILY #14 tabs 02/26/23 03/22/23 Rx amlodipine 5 mg tablet 5 mg PO DAILY #90 tabs 03/15/23 03/22/23 Rx Allergies Allergy/AdvReac Type Severity Reaction Status Date / Time Sulfa (Sulfonamide Allergy Severe BLISTER, Verified 03/22/23 10:35 Antibiotics) skin [SULFA (SULFONAMIDE comes off ANTIBIOTICS)] my legs latex [LATEX] Allergy Mild SKIN Verified 03/22/23 10:35 IRRITATION amoxicillin [AMOXICILLIN] AdvReac Severe Makes my Verified 03/22/23 10:35 skin crawl clavulanic acid AdvReac Severe AUGMENTIN/V Verified 03/22/23 10:35 [CLAVULANIC ACID] OMITING Penicillins [PENICILLINS] AdvReac Severe NAUSEA/VOMI Verified 03/22/23 10:35 TING ciprofloxacin [CIPROFLOXACIN] AdvReac Intermediate MADE PT Verified 03/22/23 10:35 FEEL RUMMY/NAUSEA erythromycin base AdvReac Intermediate SKIN Verified 03/22/23 10:35 [ERYTHROMYCIN BASE] CRAWLING
--- NOTE | 2023-03-22 09:10 | P.OP_ITS ---
Operative Date/Time/Diagnoses Date of procedure: 03/22/23 Time of procedure: 12:00 Pre-op diagnosis: Bilateral upper lid functional dermatochalasis with brow ptosis bilateral lower lid ectropion add on cosmetic lower lid herniated fat repair Post-op diagnosis: same Procedure & Clinicians Procedure: Preoperative diagnoses: 1. 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 Bilateral lower lid ectropion 3. Cosmetic herniated fat pads inferiorly both eyes 4. Floppy lid syndrome 5. Diabetes in poor control [id number] 6. COPD 7. Hypertension 8. Arthritis 9. Psoriasis 10. Enlarged prostate Postoperative diagnoses: 1. Bilateral upper lid dermatochalasis treated with blepharoplasty 2. Bilateral brow pexy with internal fixation suture 3. Status post ectropion repair 4. Punctal malrotation with punctal stenosis. Procedure: Bilateral upper blepharoplasty for functional symptoms. Bilateral internal fixation brow pexy Bilateral lower lid functional ectropion repair. Bilateral add on cosmetic herniated fat pad removal described as separate procedure at end of operate note Surgeon: Pascale Cabrera MD Complications: none Specimen: None Blood loss: Less than 10 mL Anesthesia: Local infiltration with monitored standby. Indications: Bilateral upper lids obstructing superior vision. Preoperative external photographs taken and loss of vision to within 2 mm of marginal light reflex. Functional surgery. Bilateral lower lid laxity with exposure symptoms and malrotated puncta. Patient presents with excessive irritation and tearing from exposure due to bilateral lower lid laxity malposition the of the lacrimal puncta which were also closed. The patient has failed conservative measures including lubrication and antibiotic ointment and desires surgery to improve these symptoms. Procedure: In the preoperative holding area the amount skin and subcutaneous tissue to be removed was marked with indelible ink. The contours were carefully checked for symmetry and planned procedure discussed with the patient. The patient was taken to the operating room. IV sedation was given. Proparacaine drops were placed in both eyes for comfort. Local infiltration of anesthetic 2.5 cc into each upper lid and lateral canthus bilaterally, consisting of 1% xylocaine with epinephrine, normal saline and 1 cc hyluronidase was placed. This was then supplemented with full strength 2% xylocaine with epinephrine, 0.5% bupivacaine, and 1 cc hyalurondase. The face was prepped in an open manner. Attention was placed to the right upper lid. Using the previous fernandez a number 15. Bard-Sunil blade was used to incise a skin muscle flap. The flap was lifted and removed. Cautery was applied as needed. Contouring of the muscle belly was also performed. A separate dissection using cutting cautery a [place] elevator and to Mar retractor was used to expose the superior orbital rim for 12-15 mm. A caliper was used to confirm this distance and a 4.0 Vicryl on a P2 needle was used through the periosteum layer and then anchored another 12-15 mm through the orbital flat on the internal lid. Care was taken that this was placed at the peak of the brow and that it did not entrap the lid structures. It was tied and left in position. Exploration of the nasal and preoperneurotic fat pads were performed removal and contouring with hemostat and scissors as well as cautery were performed. The lid was then closed with running and interrupted 6 0 Vicryl sutures. Attention was placed to the right lower lid. A punctal dilator was used to enlarge the punctum. It was then probed to the nose. Tenotomy scissors were used to make a 3 snip procedure to enlarge the punctum permanently. Attention was placed to the lateral canthus. A 15. Bard-Sunil blade was used to make an incision for 1 cm. The periosteum was exposed. Cautery was used as needed. The inferior canthal tendon was lysed with scissors. A tarsal strip was formed with clearance of the anterior and posterior lamella and any exposed lashes. Minimal shortening was performed. The strip was then transected with 5.0 Mersilene type suture which was placed double-armed through the periosteum and tied with multiple knots at the orbital rim. The outer tarsus and lid was then closed with 6 0 interrupted sutures. The procedure was repeated on the left side in identical fashion. There was minimal bleeding. The patient returned to the recovery room in good condition. Sutures will be removed in the office in approximately 10 days. Same procedure was repeated for the left upper lid and lower lid. The Betadine was removed. Due to allergy ointment was placed to suture line. He returned to recovery room in stable condition. Instructions for postoperative cold packs were reviewed. And on procedure cosmetic both lower lids. Local infiltration was placed with 2% xylocaine with epinephrine along both lower lids. A subciliary incision was then made extending the length of the lower lid starting 4 mm lateral to the inferior punctum starting with the right lower lid. This was then carried all way to the lateral canthus. Blunt dissection was used to expose the orbital septum and the nasal, medial and temporal fat pads for each explored through a buttonhole and the orbital septum. Extensive removal was performed using hemostasis with clamps as well as cautery without distortion of the anatomy. Once hemostasis was obtained it was sutured with running 6.0 Vicryl suture. The procedure was repeated on the other side. Erythromycin ophthalmic ointment was placed to the incisions. Postoperatively patient will use hydrocodone 7.5 mg with Tylenol 3.25 mg orally every 4-6 hours for pain. He was instructed on how to do cold compresses. He did have some wheezing during this procedure and an inhaler should be used if needed. He also had compression SCDs placed on both legs during the procedure. Returned recovery room in stable condition. Pascale Cabrera MD. Same procedure as scheduled: Yes
[2023-03-22] MEDS: LACTATED RINGERS 1,000 ML 42 ML IV ×2 (11:08→13:33)
[2023-03-22] MEDS: ERYTHROMYCIN OPHTH 1 GM OINT 1 APPLIC EYE-BOTH (12:14)
[2023-03-22] MEDS: PROPARACAINE 0.5% OPHTH SOL 2 DROPS EYE-BOTH (12:14)
[2023-03-22] MEDS: LIDOCAINE 1% INJ (12:17)
[2023-03-22] MEDS: HYALURONIDASE INJ (12:17)
[2023-03-22] MEDS: SODIUM CHLORIDE INJ (12:17)
[2023-03-22] MEDS: EPI INJ (12:17)
[2023-03-22] MEDS: LIDOCAINE 2% W/EPI 3 ML, BUPIVACAINE 0.5% (PF) 2 ML, HYALURONIDASE 150 UNIT INJ (12:21)
[2023-03-22] MEDS: LIDOCAINE 2% W/EPI INJ 1 ML INJ (12:22)
[2023-03-22] MEDS: LIDOCAINE 1% W/EPI 20 ML INJ (14:14)
[2023-03-22] MEDS: HYDROMORPHONE 2 MG INJ IV ×4 (15:10→15:36)
[2023-03-22] MEDS: OXYCODONE IR 5 MG TABLET PO ×2 (15:10→15:56)
== END 2023-03-22 16:35 | disposition home or self-care (01) ==
PROVIDERS: PCP Family Medicine; Referring Provider Ophthalmology; Visit Provider Ophthalmology
PROC: (CPT 15820; principal; 2023-03-22 11:15)
DX: H02.834 Dermatochalasis of left upper eyelid (principal); H02.831 Dermatochalasis of right upper eyelid; H02.102 Unspecified ectropion of right lower eyelid; H02.105 Unspecified ectropion of left lower eyelid
CPT/HCPCS: 67900; 67917; 15822; J1170; J2704; J3010; J3470

== ENCOUNTER 2023-03-22 10:50 | Day surgery (SDC) | payer SELFPAY ==
[2021-06-20 10:47] VITALS: BMI 31.9
== END 2023-03-22 11:50 | disposition home or self-care (01) ==
PROVIDERS: PCP Family Medicine; Referring Provider Ophthalmology; Visit Provider Ophthalmology
DX: H02.835 Dermatochalasis of left lower eyelid (principal); H02.832 Dermatochalasis of right lower eyelid
CPT/HCPCS: 15821

== ENCOUNTER 2023-03-27 19:31 | Emergency (ER) | payer MEDICARE, OTHER, SELFPAY ==
[2021-06-20 10:47] VITALS: BMI 31.9
[2023-03-27 19:52] VITALS: BP 186/82; PULSE 88; RESP 18; TEMP 36.4; O2SAT 96; BMI 25.8
== END 2023-03-27 23:28 | disposition left against medical advice (07) ==
PROVIDERS: Emergency Provider Emergency Medicine; PCP Family Medicine
CPT/HCPCS: 99281

== ENCOUNTER 2023-03-28 06:28 | Emergency (ER) | payer MEDICARE, OTHER, SELFPAY ==
[2021-06-20 10:47] VITALS: BMI 31.9
[2023-03-28 06:35] VITALS: BP 156/70; PULSE 72; RESP 16; TEMP 36.2; O2SAT 96; BMI 31.4
--- NOTE | 2023-03-28 07:17 | ED.EYEPROB ---
HPI - Eye Problem General Chief complaint: Eye Problems Stated complaint: post op, eye infection Time Seen by Provider: 03/28/23 07:16 Source: patient Mode of arrival: Ambulatory History of Present Illness HPI Narrative: This is a 72-year-old male who had blepharoplasty last Wednesday and developed some swelling and crusting of his eyelids he was started on erythromycin ointment and tobramycin/gentamicin drops and Wednesday. He states his eyes were not crusted shut this morning which is an improvement he states the swelling seems to be baseline without much worsening. States he is developed runny nose sinus pressure on the left some chest congestion and coughing up green productive sputum. He denies fevers. He states vision is close to baseline slightly blurred but states that was immediate after the surgery. He notes a lot of nasal congestion as well. Patient denies chest pain or pressure. Denies nausea or vomiting, no dies diarrhea constipation. Denies any urinary symptoms. Patient states bruising is improving from his surgery. He takes medication for hypertension, dyslipidemia, diabetes type 2 and BPH. He states he is had prior back surgeries, no prior cardiac surgeries or interventions. He has multiple allergies to antibiotics. Related Data Previous Rx's Medication Instructions Recorded Contour Test Strips #100 ea 12/25/19 albuterol sulfate 90 mcg/actuation 2 puff inhalation Q4-6H PRN 05/15/22 aerosol inhaler (ProAir HFA) shortness of breath or wheezing #8.5 grams hydrocortisone 2.5 % topical cream 1 applic topical BID PRN 07/29/22 Hemorrhoids #60 grams clobetasol 0.05 % shampoo 1 applic topical BEDTIME 4 weeks 10/05/22 #118 mL fluticasone propionate 50 1 spray intranasal DAILY PRN nasal 11/18/22 mcg/actuation nasal congestion #16 grams spray,suspension (Flonase Allergy Relief) atorvastatin 10 mg tablet 10 mg PO BEDTIME #90 tabs 12/31/22 enalapril maleate 20 mg tablet 20 mg PO BID #180 tabs 12/31/22 metformin 500 mg tablet,extended 500 mg PO QPM #90 tabs 12/31/22 release 24 hr tamsulosin 0.4 mg capsule (Flomax) 0.4 mg PO DAILY #90 caps 12/31/22 glipizide 5 mg tablet 5 mg PO DAILY #90 tabs 01/14/23 gabapentin 600 mg tablet 600 mg PO .5XDAILY #14 tabs 02/26/23 amlodipine 5 mg tablet 5 mg PO DAILY #90 tabs 03/15/23 erythromycin 5 mg/gram (0.5 %) eye 0.5 inch EYE-BOTH TID 7 days #3.5 03/22/23 ointment grams hydrocodone 7.5 mg-acetaminophen 1 tab PO Q4-6H PRN pain #14 tabs 03/22/23 325 mg tablet azithromycin 250 mg tablet See Rx Instructions PO .COMPLEX #6 03/28/23 tabs Allergies Allergy/AdvReac Type Severity Reaction Status Date / Time Sulfa (Sulfonamide Allergy Severe BLISTER, Verified 03/22/23 10:35 Antibiotics) skin [SULFA (SULFONAMIDE comes off ANTIBIOTICS)] my legs latex [LATEX] Allergy Mild SKIN Verified 03/22/23 10:35 IRRITATION amoxicillin [AMOXICILLIN] AdvReac Severe Makes my Verified 03/22/23 10:35 skin crawl clavulanic acid AdvReac Severe AUGMENTIN/V Verified 03/22/23 10:35 [CLAVULANIC ACID] OMITING Penicillins [PENICILLINS] AdvReac Severe NAUSEA/VOMI Verified 03/22/23 10:35 TING ciprofloxacin [CIPROFLOXACIN] AdvReac Intermediate MADE PT Verified 03/22/23 10:35 FEEL RUMMY/NAUSEA erythromycin base AdvReac Intermediate SKIN Verified 03/22/23 10:35 [ERYTHROMYCIN BASE] CRAWLING Review of Systems Review of Systems ROS Unobtainable: All systems reviewed & are unremarkable except as noted in HPI and below Patient History Medical History Anal fissure (02/2018) Anal fissure Anxiety Back pain Benign prostatic hyperplasia (01/02/15) BPH (benign prostatic hyperplasia) Cellulitis of lower extremity Controlled type 2 diabetes mellitus without complication (04/30/16) COPD (chronic obstructive pulmonary disease) Cramps of lower extremity (01/02/15) Degenerative arthritis of lumbar spine Degenerative disc disease Essential hypertension GERD (gastroesophageal reflux disease) Inflamed internal hemorrhoid (02/2018) Left sided sciatica Lumbar disc herniation with radiculopathy Osteoarthritis of lower back (09/19/14) Peripheral neuropathy Pneumonia Prepatellar bursitis of right knee Spinal stenosis Tear of rotator cuff (09/19/14) Surgical History H/O colonoscopy (07/08/15) H/O sinus surgery (2003) History of elbow surgery History of lumbar fusion (02/01/19) History of sebaceous cyst (2000) Hx of hand surgery (~2004) Hx of inguinal hernia surgery (1996) Hx of microdiscectomy (07/01/18) Status post epidural steroid injection Status post laminectomy Family History Father CA (myocardial infarction) Grandmother Diabetes mellitus Mother Lymphoma Grandfather Colon cancer Sister Bladder cancer Social History marital status: (11/01/18) household members: none Smoking Status: Former smoker alcohol intake: current Smoking Status: Former smoker alcohol intake frequency: holidays/special occasions only Alcohol type: beer Substance Use Type: does not use Exam Narrative Exam Narrative: GEN: well nourished, well appearing male, alert and oriented x 3, patient appears to be in mild distress. HEENT: Atraumatic, pupils are equal round reactive to light, extraocular movements are intact, patient has bruising yellowish above and below the eyes appears older, nares are clear, TMs are clear with no fluid, there is no conjunctival pallor. Throat is clear without any exudates, erythema, tonsillar enlargement or uvular deviation Visual acuity: right 20/50, left 20/50 without correction. General: no globe trauma Eyelids: Patient has bilateral upper and lower eyelid swelling, can see sutures. There is no purulent drainage. Conjunctiva/Sclera: Slightly injected bilaterally Corneas: normal inspection, examined with fluroscein on bilaterally no uptake. EOM: intact, no palsy/entrapment Pupils: PERRL, normal accomadation, pupil normal Anterior Chambers: normal inspection, no hypema Posterior: normal fundoscopic on bilaterally HEART: Regular rate and rhythm without murmur, clicks, rubs. LUNGS:Lungs clear to auscultation, no wheezes, rales, crackles, chest moves symmetrically. Patient has wet cough. ABD:bowel sounds normal, soft, non-tender, no guarding, rebound, rigidity, no masses noted, no hepatosplenomegaly :No CVA tenderness, MSCL: Non-tender, no muscle atrophy, muscles strength 5/5 upper and lower extremities, full range of motion, normal gait NEURO:CN 2-12 intact, sensation normal Initial Vital Signs Initial Vital Signs: Vital Signs Temperature 97.2 F L 03/28/23 06:35 Pulse Rate 72 03/28/23 06:35 Respiratory Rate 16 03/28/23 06:35 Blood Pressure 156/70 H 03/28/23 06:35 Pulse Oximetry 96 03/28/23 06:35 Oxygen Delivery Method Room Air 03/28/23 06:35 Course Orders Ordered: Discontinued Medications Fluorescein Sodium (Fluorescein 1 Mg Strip) 1 mg EYE-BOTH NOW ONE Stop: 03/28/23 07:33 Last Admin: 03/28/23 07:38 Dose: 1 mg Documented By: MAT Proparacaine HCl (Proparacaine 0.5% Ophth Angela) 1 drops EYE-BOTH NOW ONE Stop: 03/28/23 07:33 Last Admin: 03/28/23 07:39 Dose: 1 drops Documented By: MAT Vital Signs Vital signs: Vital Signs - 8 hr 03/28/23 06:35 03/28/23 07:31 Temperature 97.2 F L Pulse Rate 72 74 Respiratory Rate 16 18 Blood Pressure 156/70 H 138/65 Pulse Oximetry 96 97 Oxygen Delivery Method Room Air Room Air MDM - Eye Problem MDM Narrative Medical decision making narrative: This is a 72-year-old male who presents with I infection bilaterally after blepharoplasty last Wednesday almost a week ago, patient states he was started on erythromycin ointment and 2 over/shunt drops which he brought with him. He states today he did not wake up crusted but still has some swelling redness does not seem to be worsening vision is 20 50 bilaterally he states slightly blurred but not worsening. He also notes that he is had green sinus drainage and productive sputum with a little bit of shortness of breath and cough. Patient has been afebrile. Likely has a bronchitis or upper respiratory infection but with his recent surgery does feel appropriate to cover as he does have some sinus tenderness and fullness. Patient is limited on antibiotic choices because of allergies in terms of coverage. Patient was given return precautions asked to follow up with Ophthalmology tomorrow on Wednesday, his eye seemed to be improving but would like close follow-up for him. Discharge Plan Departure Patient Disposition: Home Clinical Impression: S/p bilateral blepharoplasty, Sinusitis Activity Restrictions/Additional Instructions: Please follow up with Dr. Pascale trimble her partner canal is tomorrow for recheck. Continue your antibiotic eyedrops as prescribed as well as the erythromycin. You may be developing a sinus infection please take antibiotics until completed. Prescription sent to [facility] in [place]. Please return for fevers, increasing swelling of her eyes, decreasing vision, new pain or worsening crusting, new or worsening chest pain, shortness of breath, coughing up blood or other new or concerning changes. Prescriptions: New azithromycin 250 mg tablet See Rx Instructions .ROUTE .COMPLEX Qty: 6 0RF Rx Instructions: For 250 mg dose pack: take 500 mg today (day 1), then 250 mg for 4 days (days 2-5) No Action hydrocortisone 2.5 % cream 1 applic TOP BID PRN (Reason: Hemorrhoids) Qty: 60 3RF enalapril maleate 20 mg tablet 20 mg PO BID Qty: 180 3RF atorvastatin 10 mg tablet 10 mg PO BEDTIME Qty: 90 3RF metformin 500 mg tablet extended release 24 hr 500 mg PO QPM Qty: 90 1RF Rx Instructions: Take one tablet with evening meal once daily tamsulosin [Flomax] 0.4 mg capsule 0.4 mg PO DAILY Qty: 90 3RF albuterol sulfate [ProAir HFA] 90 mcg/actuation HFA aerosol inhaler 2 puff inhalation Q4-6H PRN (Reason: shortness of breath or wheezing) Qty: 8.5 0RF (DME) Contour Test Strips 0 .Route .MEDSUPPLY Qty: 100 0RF Rx Instructions: Use daily as directed to monitor blood glucose. clobetasol 0.05 % shampoo 1 applic topical BEDTIME 28 Days Qty: 118 1RF glipizide 5 mg tablet 5 mg PO DAILY Qty: 90 1RF gabapentin 600 mg tablet 600 mg PO .5XDAILY Qty: 14 0RF amlodipine 5 mg tablet 5 mg PO DAILY Qty: 90 1RF Rx Instructions: Take one tablet once daily with Enalapril (either a.m. or p.m. Enalapril) fluticasone propionate [Flonase Allergy Relief] 50 mcg/actuation spray,suspension 1 spray intranasal DAILY PRN (Reason: nasal congestion) Qty: 16 0RF Rx Instructions: administer into each nostril hydrocodone-acetaminophen 7.5-325 mg tablet 1 tab PO Q4-6H PRN (Reason: pain) Qty: 14 0RF erythromycin 5 mg/gram (0.5 %) ointment 0.5 inch EYE-BOTH TID 7 Days Qty: 3.5 1RF Referrals: Pascale Trimble MD [Physician] - Cas Marin MD [Primary Care Provider] - Stand Alone Forms: Patient Portal/API
[2023-03-28 07:31] VITALS: BP 138/65; PULSE 74; RESP 18; O2SAT 97
[2023-03-28] MEDS: FLUORESCEIN 1 MG STRIP EYE-BOTH (07:38)
[2023-03-28] MEDS: PROPARACAINE 0.5% OPHTH SOL 1 DROPS EYE-BOTH (07:39)
== END 2023-03-28 07:55 | disposition home or self-care (01) ==
PROVIDERS: Emergency Provider Emergency Medicine; PCP Family Medicine
DX: J32.9 Chronic sinusitis, unspecified (principal); Z87.891 Personal history of nicotine dependence; Z98.890 Other specified postprocedural states; H01.9 Unspecified inflammation of eyelid
CPT/HCPCS: 99282; 99283

== ENCOUNTER → 2023-06-07 07:22 | Outpatient (CLI) | payer MEDICARE, OTHER, SELFPAY ==
[2021-06-20 10:47] VITALS: BMI 31.9
[2023-06-07 09:10] LABS: BUN Creatinine Ratio 13.8 (6-22); Blood Urea Nitrogen 12 mg/dL (9-20); Carbon Dioxide 22 mmol/L (22-32); Chloride 104 mmol/L (98-107); Estimated Glomerular Filt Rate > 60 mL/min (>60); Glucose 151 mg/dL (80-110); HEMOLYSIS < 15 (0-50); Potassium 4.3 mmol/L (3.4-5.1); Sodium 137 mmol/L (137-145)
[2023-06-07 09:11] LABS: Hemoglobin A1C% w Est Avg Glu 7.5 % (4.0-6.0)
[2023-06-07 11:42] LABS: Creatinine Urine Random 133.3 mg/dL
[2023-06-07 11:46] LABS: Microalbumin Urine Random 14.4 mg/dL (0-1.6)
== END ==
PROVIDERS: PCP Family Medicine; Referring Provider Family Medicine; Visit Provider Family Medicine
DX: E11.9 Type 2 diabetes mellitus without complications (principal); E11.65 Type 2 diabetes mellitus with hyperglycemia; I10 Essential (primary) hypertension
CPT/HCPCS: 36415; 80048; 82043; 82570; 83036

== ENCOUNTER 2023-06-27 20:13 | Emergency (ER) | payer MEDICARE, OTHER, SELFPAY ==
[2023-06-10 10:18] VITALS: BMI 31.9
[2023-06-27] VITALS (19 sets, daily range): BP systolic 146–201; BP diastolic 64–88; PULSE 69–90; RESP 16–25; TEMP 37; O2SAT 94–99; BMI 31.8
--- NOTE | 2023-06-27 20:39 | ED_ITS ---
HPI - General Adult General Chief complaint: Extremity Injury, Lower Stated complaint: left foot/infection Time Seen by Provider: 06/27/23 20:38 Source: patient Mode of arrival: Ambulatory History of Present Illness HPI narrative: 72-year-old gentleman with a history of type 2 diabetes, COPD, hyperlipidemia, hypertension and BPH presents today complaining of an infection in his upper left thigh that started this morning and is worsening over the course of the day. On further questioning he notes that he has been a bit more short of breath today has been coughing, he has been chilled all day but does not describe specific fevers. No overt chest pain, palpitations, abdominal pain, dysuria. He does complain of fatigue and general myalgias over the course of the day. He has an area on the medial aspect of his left thigh that does look like cellulitis without abscess Related Data Previous Rx's Medication Instructions Recorded Contour Test Strips #100 ea 12/25/19 albuterol sulfate 90 mcg/actuation 2 puff inhalation Q4-6H PRN 05/15/22 aerosol inhaler (ProAir HFA) shortness of breath or wheezing #8.5 grams fluticasone propionate 50 1 spray intranasal DAILY PRN nasal 11/18/22 mcg/actuation nasal congestion #16 grams spray,suspension (Flonase Allergy Relief) atorvastatin 10 mg tablet 10 mg PO BEDTIME #90 tabs 12/31/22 enalapril maleate 20 mg tablet 20 mg PO BID #180 tabs 12/31/22 metformin 500 mg tablet,extended 500 mg PO QPM #90 tabs 12/31/22 release 24 hr tamsulosin 0.4 mg capsule (Flomax) 0.4 mg PO DAILY #90 caps 12/31/22 glipizide 5 mg tablet 5 mg PO DAILY #90 tabs 01/14/23 gabapentin 600 mg tablet 600 mg PO .5XDAILY #14 tabs 02/26/23 amlodipine 5 mg tablet 5 mg PO DAILY #90 tabs 03/15/23 erythromycin 5 mg/gram (0.5 %) eye 0.5 inch EYE-BOTH TID 7 days #3.5 03/22/23 ointment grams hydrocodone 7.5 mg-acetaminophen 1 tab PO Q4-6H PRN pain #14 tabs 03/22/23 325 mg tablet clobetasol 0.05 % shampoo 1 applic topical BEDTIME 4 weeks 04/27/23 #118 mL duloxetine 30 mg capsule,delayed 30 mg PO DAILY #30 caps 06/10/23 release (Cymbalta) clobetasol 0.05 % lotion 1 applic topical BID #118 mL 06/11/23 hydrocortisone 2.5 % topical cream 1 applic topical BID PRN 06/11/23 Hemorrhoids #60 grams doxycycline hyclate 100 mg capsule 100 mg PO BID #20 caps 06/27/23 prednisone 20 mg tablet 40 mg (2 x 20 mg) PO DAILY #10 tabs 06/27/23 Allergies Allergy/AdvReac Type Severity Reaction Status Date / Time Sulfa (Sulfonamide Allergy Severe BLISTER, Verified 06/10/23 09:05 Antibiotics) skin [SULFA (SULFONAMIDE comes off ANTIBIOTICS)] my legs latex [LATEX] Allergy Mild SKIN Verified 06/10/23 09:05 IRRITATION amoxicillin [AMOXICILLIN] AdvReac Severe Makes my Verified 06/10/23 09:05 skin crawl clavulanic acid AdvReac Severe AUGMENTIN/V Verified 06/10/23 09:05 [CLAVULANIC ACID] OMITING Penicillins [PENICILLINS] AdvReac Severe NAUSEA/VOMI Verified 06/10/23 09:05 TING ciprofloxacin [CIPROFLOXACIN] AdvReac Intermediate MADE PT Verified 06/10/23 09:05 FEEL RUMMY/NAUSEA erythromycin base AdvReac Intermediate SKIN Verified 06/10/23 09:05 [ERYTHROMYCIN BASE] CRAWLING Review of Systems Review of Systems Narrative: Pertinent positive and negative findings as per HPI Patient History Medical History (Updated 06/27/23 @ 23:02 by Nadege Uribe MD) Peripheral neuropathy Spinal stenosis COPD (chronic obstructive pulmonary disease) Lumbar disc herniation with radiculopathy Anxiety Degenerative arthritis of lumbar spine Inflamed internal hemorrhoid (02/2018) BPH (benign prostatic hyperplasia) GERD (gastroesophageal reflux disease) Controlled type 2 diabetes mellitus without complication (04/30/16) Tear of rotator cuff (09/19/14) Essential hypertension Surgical History History of lumbar fusion (02/01/19) Hx of microdiscectomy (07/01/18) Hx of hand surgery (~2004) Status post epidural steroid injection H/O colonoscopy (07/08/15) History of elbow surgery H/O sinus surgery (2003) History of sebaceous cyst (2000) Hx of inguinal hernia surgery (1996) Status post laminectomy Family History Father [place] (myocardial infarction) Grandmother Diabetes mellitus Mother Lymphoma Grandfather Colon cancer Sister Bladder cancer Social History marital status: household members: none Smoking Status: Former smoker alcohol intake: current Smoking Status: Former smoker alcohol intake frequency: holidays/special occasions only Alcohol type: beer Substance Use Type: does not use Exam Initial Vital Signs Initial Vital Signs: Vital Signs Temperature 98.6 F 06/27/23 20:17 Pulse Rate 75 06/27/23 20:17 Respiratory Rate 16 06/27/23 20:17 Blood Pressure 184/84 H 06/27/23 20:17 Pulse Oximetry 95 06/27/23 20:17 Oxygen Delivery Method Room Air 06/27/23 20:17 General: Healthy appearing, in no acute distress. Able to give a complete and coherent history. Well-nourished well-developed HEENT: Moist mucous membranes, normal sclera with reactive pupils, Neck: No JVD, supple Respiratory: Lungs with rhonchi through entire right lung gamble, no rales, scattered wheezing in all lung gamble without retractions Cardiac: Regular rate and rhythm no murmurs no bruits Abdomen: Soft, nontender, good bowel tones, no flank pain Skin: He is an area on the inner left thigh that has some reticular violaceous non blanching component with expanding erythema involving the entire area. Clearly demarcated edges are outlined with a pen today. He has excoriated areas that are chronic over the lower extremities he states her intermittently pruritic not currently a problem. He also has mild intertrigo in the groin. Neurologic: Grossly neurologically intact with no obvious asymmetries or abnormalities Extremities: No trauma, well perfused, he does have mild inguinal adenopathy on the left side Psych: Cooperative, appropriate insight and affect Course Orders Ordered: ED Orders 06/27/23 21:00 XR chest 1V Stat EKG-12 Lead Stat 06/27/23 21:10 Complete Blood Count AUTO DIFF Stat Comprehensive Metabolic Panel Stat Lactate (Lactic Acid) Stat NT-proBNP (BNP-Adult 18+) Stat Procalcitonin Stat Troponin I Stat 06/27/23 21:23 Respiratory Panel (Film Array) Stat 06/27/23 21:30 Blood Culture Stat 06/27/23 23:08 Urinalysis and Microscopic Stat Vancomycin HCl/Dextrose (Vancomycin) 2,000 mg in 400 mls @ 200 mls/hr IV NOW ONE Stop: 06/28/23 00:29 Last Admin: 06/27/23 22:30 Dose: 200 mls/hr Documented By: ALINA Vancomycin HCl/Dextrose (Vancomycin) 1,500 mg in 300 mls @ 200 mls/hr IV Q12H LUIS M Discontinued Medications Albuterol (Albuterol Hfa Mdi 60 Puff/8 Gm Inhaler) 2 puff INH NOW ONE Stop: 06/27/23 22:52 Last Admin: 06/27/23 23:15 Dose: Not Given Documented By: ALINA Albuterol (Albuterol Hfa Prepack) 1 box MISC SEEINSTR ONE Stop: 06/27/23 23:09 Last Admin: 06/27/23 23:16 Dose: 1 box Documented By: ALINA Albuterol/Ipratropium (Albuterol/Ipratropium 3 Ml Ampul) 3 ml INH NOW ONE Stop: 06/27/23 20:57 Last Admin: 06/27/23 21:19 Dose: 3 ml Documented By: HAKAN Ceftriaxone Sodium 2,000 mg/ (Sodium Chloride) 100 mls @ 200 mls/hr IV NOW ONE Stop: 06/27/23 20:57 Last Infusion: 06/27/23 22:21 Dose: Infused Documented By: Admin: 06/27/23 21:36 Dose: 200 mls/hr Documented By: ALINA Sodium Chloride (Normal Saline 0.9%) 1,000 mls @ 1,000 mls/hr IV BOLUS ONE Stop: 06/27/23 22:55 Last Infusion: 06/27/23 23:16 Dose: Infused Documented By: Admin: 06/27/23 22:02 Dose: 1,000 mls/hr Documented By: ALINA Methylprednisolone (Methylprednisolone 125 Mg/2 Ml Vial) 125 mg IV NOW ONE Stop: 06/27/23 23:05 Last Admin: 06/27/23 23:16 Dose: 125 mg Documented By: ALINA Vancomycin HCl (Vancomycin Per Pharmacy) 1 request MISC NOW ONE Stop: 06/27/23 21:02 Last Admin: 06/27/23 22:30 Dose: Not Given Documented By: ALINA Vital Signs Vital signs: Vital Signs - 8 hr 06/27/23 20:17 06/27/23 21:17 06/27/23 21:19 Temperature 98.6 F Pulse Rate 75 80 82 Respiratory Rate 16 25 H 16 Blood Pressure 184/84 H Pulse Oximetry 95 98 98 Oxygen Delivery Method Room Air Room Air 06/27/23 21:19 06/27/23 21:19 06/27/23 21:30 Temperature Pulse Rate 69 81 Respiratory Rate 17 24 Blood Pressure 178/72 H Pulse Oximetry 99 94 Oxygen Delivery Method 06/27/23 21:44 06/27/23 21:44 06/27/23 22:00 Temperature Pulse Rate 88 86 Respiratory Rate 23 Blood Pressure 146/64 H Pulse Oximetry 95 95 Oxygen Delivery Method Room Air 06/27/23 22:01 06/27/23 22:01 06/27/23 22:04 Temperature Pulse Rate 87 88 Respiratory Rate 25 H 24 Blood Pressure 190/77 H Pulse Oximetry 94 Oxygen Delivery Method Room Air 06/27/23 22:07 06/27/23 22:07 06/27/23 22:08 Temperature Pulse Rate 82 82 Respiratory Rate 19 18 Blood Pressure 192/84 H Pulse Oximetry 94 95 Oxygen Delivery Method 06/27/23 22:08 06/27/23 22:15 06/27/23 22:15 Temperature Pulse Rate 90 Respiratory Rate 25 H Blood Pressure 191/84 H 201/88 H Pulse Oximetry 96 Oxygen Delivery Method 06/27/23 22:16 06/27/23 22:16 06/27/23 22:30 Temperature Pulse Rate 88 Respiratory Rate 20 Blood Pressure 193/88 H 191/88 H Pulse Oximetry 96 Oxygen Delivery Method 06/27/23 22:30 06/27/23 22:45 06/27/23 22:45 Temperature Pulse Rate 87 83 Respiratory Rate 20 17 Blood Pressure 165/74 H Pulse Oximetry 95 95 Oxygen Delivery Method 06/27/23 23:00 06/27/23 23:00 06/27/23 23:16 Temperature Pulse Rate 86 85 Respiratory Rate 18 17 Blood Pressure 178/80 H Pulse Oximetry 97 94 Oxygen Delivery Method Room Air 06/27/23 23:16 Temperature Pulse Rate Respiratory Rate Blood Pressure 158/72 H Pulse Oximetry Oxygen Delivery Method Medical Decision Making Lab Data 06/27/23 21:10 06/27/23 21:10 Labs: Lab Results 06/27/23 06/27/23 06/27/23 Range/Units 21:10 21:23 23:08 WBC 7.9 (4.5-11.0) X10^3/uL RBC 5.02 (4.5-5.9) X10^6/uL Hgb 14.2 (13.5-17.5) g/dL Hct 42.4 (41-53) % MCV 84.4 (80-100) fL MCH 28.4 (26-34) PG MCHC 33.6 (30-36) % RDW 14.4 (11.6-14.8) % Plt Count 176 (150-400) X10^3/uL Neut % (Auto) 79.6 H (50-75) % Lymph % (Auto) 12.6 L (25-40) % [place] % (Auto) 5.6 (3-14) % Eos % (Auto) 1.4 L (2-4) % Baso % (Auto) 0.8 (0-2) % Neut # (Auto) 6300 (9397-1639) /uL Lymph # (Auto) 1000 L (0313-0239) /uL [place] # (Auto) 400 (0-900) /uL Eos # (Auto) 100 (0-450) /uL Baso # (Auto) 100 (0-100) /uL Sodium 135 L (137-145) mmol/L Potassium 4.2 (3.4-5.1) mmol/L Chloride 99 (98-107) mmol/L Carbon Dioxide 27 (22-32) mmol/L BUN 15 (9-20) mg/dL Creatinine 1.00 (0.66-1.25) mg/dL Estimated GFR > 60 (>60) mL/min BUN/Creatinine Ratio 15.0 (6-22) Glucose 132 H (80-110) mg/dL Lactate 1.8 (0.7-2.1) mmol/L Calcium 10.2 (8.4-10.2) mg/dL Total Bilirubin 0.4 (0.2-1.3) mg/dL AST 48 (17-59) IU/L ALT 52 H (<50) IU/L Alkaline Phosphatase 68 (38-126) U/L Troponin I < 0.012 (0.01-0.034) ng/mL NT-Pro-B Natriuret Pep 118 (<125) pg/mL Total Protein 7.6 (6.3-8.2) g/dL Albumin 4.2 (3.5-5.0) g/dL Globulin 3.4 (1.7-4.1) g/dL Albumin/Globulin Ratio 1.2 (1.0-2.8) Procalcitonin 0.13 (<0.5) ng/mL Urine Color Yellow Urine Appearance Clear Urine pH 6.0 (4.5-8.0) Ur Specific [place] 1.020 (1.000-1.035) Urine Protein Negative (Negative) Urine Glucose (UA) Negative (Negative) g/dL Urine Ketones Negative (NEGATIVE) Urine Occult Blood Negative (Negative) Urine Nitrate Negative (Negative) Urine Bilirubin Negative (NEGATIVE) Urine Urobilinogen 0.2 (0.2) E.U./dL Ur Leukocyte Esterase Negative (NEGATIVE) Urine RBC None seen (0-5/HPF) Urine WBC None seen (0-5/HPF) Ur Squamous Epith Cells 0-1 /hpf (0-5/HPF) Urine Bacteria None seen (None) Ur Culture Indicated? Cult not indicated Chlamy pneumoniae PCR Not detected (Not Detect) Adenovirus (PCR) Not detected (Not Detect) B.parapertussis DNA PCR Not detected (Not Detecte) Coronavirus OC43 (PCR) Not detected (Not Detect) Coronavirus HKU1 (PCR) Not detected (Not Detect) Coronavirus 229E (PCR) Not detected (Not Detect) SARS-CoV-2 (PCR) Not detected (Not Detecte) Coronavirus NL63 (PCR) Not detected (Not Detect) Human Metapneumovir PCR Not detected (Not Detect) Influenza Type A (PCR) Not detected (Not Detect) Influenza Type B (PCR) Not detected (Not Detect) M. pneumoniae (PCR) Not detected (Not Detect) Parainfluenza 1 (PCR) Not detected (Not Detect) Parainfluenza 2 (PCR) Not detected (Not Detect) Parainfluenza 3 (PCR) Not detected (Not Detect) Parainfluenza 4 (PCR) Not detected (Not Detect) RSV (PCR) Not detected (Not Detect) Entero/Rhino (PCR) Not detected (Not Detect) MDM Narrative Medical decision making narrative: CC: Leg rash Complicating co-morbidities: Diabetes, COPD Data collected from: patient, Medical records reviewed: Family practice note from June 10 of this year is reviewed Differential considered: Cellulitis left inner thigh, vasculitis with complicating cellulitis, right-sided pneumonia, acute COPD exacerbation, sepsis, congestive heart failure Exam documented above, pertinent findings include: 10 x 15 cm rash on the inner left thigh with a violaceous nonblanching component in a reticular pattern through the center with a blanching erythematous component consistent with cellulitis with advancing edges. He also has rhonchi through the entire right lung field with concerns for developing pneumonia and scattered wheeze. Lab Test results independently reviewed as above. Pertinent findings: CBC is notable for white count of 7.9 but 80% neutrophils, no anemia Chemistries are reassuring with normal renal function Troponin is undetectable Lactic acid is 1.8 Procalcitonin is not significantly elevated Respiratory panel is unremarkable Independently reviewed EKG sinus rhythm at a rate of 73, normal intervals, normal axis no acute ischemic changes Imaging studies independently reviewed: Chest x-ray shows no acute findings specifically no infiltrates and no cardiomegaly Treatments: DuoNeb, 1 L of fluid, IV ceftriaxone and IV vancomycin Re-evaluations: 11pm patient is re-evaluated. You still has significant wheeze in all lung gamble but the rhonchi have resolved after the nebulizer treatment. There is no significant expansion of erythema beyond the lines marked earlier. He is not febrile. His heart rate is appropriate, he is hypertensive but did take his usual evening blood pressure medications. Certainly blood pressures are not drifting down and I am not concerned for sepsis. He states that he does have an inhaler at home ?somewhere ?but did not know what I was talking about when we discussed spacer use. Discussion: 72-year-old gentleman who presents with a rash developing on the left inner thigh consistent with a cellulitis without abscess. Significant wheezing without signs of congestive heart failure and nice response to DuoNeb. There is no evidence of sepsis, severe pneumonia, renal failure or alternate explanation or diagnosis that would require hospitalization at this time. He was given a dose of ceftriaxone and vancomycin in the emergency department. Given his very reassuring workup in the emergency department I do believe that he is safe for home discharge and will need antibiotics for the developing cellulitis on the left inner thigh. I believe he also will benefit from steroids for the COPD exacerbation. He is given a spacer in [facility] inhaler to show him how to effectively use the albuterol to help with the wheeze. He will need close follow-up, and will ask him to call Dr. Marin's office to arrange for ER follow- up regarding his cellulitis either late afternoon Wednesday or Wednesday. I am going to place him on 10 days of doxycycline for the cellulitis. At this time he is safe for discharge home Discharge Plan Departure Patient Disposition: Home Clinical Impression: Acute exacerbation of chronic obstructive pulmonary disease Cellulitis Qualifiers: Site of cellulitis: extremity Site of cellulitis of extremity: lower extremity Laterality: left Qualified Code(s): L03.116 - Cellulitis of left lower limb Instructions: DI for Cellulitis -- Adult, DI for Chronic Obstructive Pulmonary Disease Activity Restrictions/Additional Instructions: Thank you for coming in today Although I understand it can be a bit anxiety provoking when you have cellulitis, your workup today is very reassuring. You do have a cellulitis, skin infection, on the left upper thigh. You have been given a dose of IV antibiotics that is going to last for 24 hours. I am also going to give you a prescription for doxycycline, another antibiotic, that you will need to start tomorrow morning and complete a 10 day course. Your workup in the emergency department did not suggest overwhelming infection (sepsis). Your kidney function, liver function, electrolytes, EKG and chest x- ray were all very reassuring You did have quite a bit of wheezing and for this I am going to suggest 5 days of prednisone and I have given you a spacer and a new albuterol puffer. When you use the puffer with the spacer the medicine is much more effective. I am going to recommend 2 puffs of albuterol every 6 hours to help with the cough, wheeze and the shortness of breath. The prescription for the antibiotics and the steroid [facility] flower buncher or picker in the morning I do want you to call Dr. Marin's office tomorrow morning. Please explain that you are in the emergency department, diagnosed with cellulitis and do need a brief ER follow-up visit within the next 24-48 hours. If you find that you are getting worse or develop any new symptoms, please feel free to return to the emergency department for further evaluation. Prescriptions: New prednisone 20 mg tablet 40 mg PO DAILY Qty: 10 0RF doxycycline hyclate 100 mg capsule 100 mg PO BID Qty: 20 0RF No Action enalapril maleate 20 mg tablet 20 mg PO BID Qty: 180 3RF atorvastatin 10 mg tablet 10 mg PO BEDTIME Qty: 90 3RF metformin 500 mg tablet extended release 24 hr 500 mg PO QPM Qty: 90 1RF Rx Instructions: Take one tablet with evening meal once daily tamsulosin [Flomax] 0.4 mg capsule 0.4 mg PO DAILY Qty: 90 3RF albuterol sulfate [ProAir HFA] 90 mcg/actuation HFA aerosol inhaler 2 puff inhalation Q4-6H PRN (Reason: shortness of breath or wheezing) Qty: 8.5 0RF duloxetine [Cymbalta] 30 mg capsule,delayed release(DR/EC) 30 mg PO DAILY Qty: 30 3RF (DME) Contour Test Strips 0 .Route .MEDSUPPLY Qty: 100 0RF Rx Instructions: Use daily as directed to monitor blood glucose. glipizide 5 mg tablet 5 mg PO DAILY Qty: 90 1RF gabapentin 600 mg tablet 600 mg PO .5XDAILY Qty: 14 0RF amlodipine 5 mg tablet 5 mg PO DAILY Qty: 90 1RF Rx Instructions: Take one tablet once daily with Enalapril (either a.m. or p.m. Enalapril) clobetasol 0.05 % shampoo 1 applic topical BEDTIME 28 Days Qty: 118 1RF clobetasol 0.05 % lotion 1 applic topical BID Qty: 118 1RF hydrocortisone 2.5 % cream 1 applic TOP BID PRN (Reason: Hemorrhoids) Qty: 60 1RF fluticasone propionate [Flonase Allergy Relief] 50 mcg/actuation spray,suspension 1 spray intranasal DAILY PRN (Reason: nasal congestion) Qty: 16 0RF Rx Instructions: administer into each nostril hydrocodone-acetaminophen 7.5-325 mg tablet 1 tab PO Q4-6H PRN (Reason: pain) Qty: 14 0RF erythromycin 5 mg/gram (0.5 %) ointment 0.5 inch EYE-BOTH TID 7 Days Qty: 3.5 1RF Referrals: Cas Marin MD [Primary Care Provider] - Stand Alone Forms: Patient Portal/API
--- NOTE | 2023-06-27 21:00 | DI.RAD.S_ITS ---
PROCEDURE: XR CHEST 1V INDICATIONS: cough, dyspnea TECHNIQUE: One view of the chest was acquired. COMPARISON: [facility], CR, XR CHEST 1V, 11/18/2022, 7:32. [facility], CR, XR CHEST 1V, 05/07/2022, 20:49. FINDINGS: Surgical changes and devices: None. Lungs and pleura: Lungs are clear. No pleural effusions or pneumothorax. Mediastinum: Cardiac silhouette is at the upper limit of normal in size. Bones and chest wall: No suspicious bony lesions. Overlying soft tissues appear unremarkable. IMPRESSION: No acute cardiopulmonary abnormality. Dictated by: Mau Chong M.D. on 06/27/2023 at 21:25 Approved by: Mau Chong M.D. on 06/27/2023 at 21:25
[2023-06-27] MEDS: ALBUTEROL/IPRATROPIUM 3 ML AMPUL INH (21:19)
[2023-06-27 21:22] LABS: Add Manual Diff / Slide Review NO; Basophils Absolute Auto 100 /uL (0-100); Basophils Percent Auto 0.8 % (0-2); Eosinophils Absolute Auto 100 /uL (0-450); Eosinophils Percent Auto 1.4 % (2-4); Hematocrit 42.4 % (41-53); Hemoglobin 14.2 g/dL (13.5-17.5); Lymphocytes Absolute Auto 1000 /uL (1100-4500); Lymphocytes Percent Auto 12.6 % (25-40); Mean Corpuscular HGB Conc 33.6 % (30-36); Mean Corpuscular Hemoglobin 28.4 PG (26-34); Mean Corpuscular Volume 84.4 fL (80-100); Monocytes Absolute Auto 400 /uL (0-900); Monocytes Percent Auto 5.6 % (3-14); Neutrophils Absolute Auto 6300 /uL (1500-7000); Neutrophils Percent Auto 79.6 % (50-75); Platelet Count 176 X10^3/uL (150-400); Red Blood Cell Count 5.02 X10^6/uL (4.5-5.9); Red Cell Distribution Width 14.4 % (11.6-14.8); White Blood Cell Count 7.9 X10^3/uL (4.5-11.0)
[2023-06-27 21:33] LABS: Alanine Aminotransferase 52 IU/L (<50); Albumin 4.2 g/dL (3.5-5.0); Albumin Globulin Ratio 1.2 (1.0-2.8); Alkaline Phosphatase 68 U/L (38-126); Aspartate Aminotransferase 48 IU/L (17-59); Bilirubin Total 0.4 mg/dL (0.2-1.3); Blood Urea Nitrogen 15 mg/dL (9-20); Calcium 10.2 mg/dL (8.4-10.2); Carbon Dioxide 27 mmol/L (22-32); Chloride 99 mmol/L (98-107); Estimated Glomerular Filt Rate > 60 mL/min (>60); Globulin 3.4 g/dL (1.7-4.1); Glucose 132 mg/dL (80-110); HEMOLYSIS 15 (0-50); Lactate (Lactic Acid) 1.8 mmol/L (0.7-2.1); Potassium 4.2 mmol/L (3.4-5.1); Sodium 135 mmol/L (137-145); Total Protein 7.6 g/dL (6.3-8.2)
--- NOTE | 2023-06-27 21:33 | PC.NURSE ---
Upon walking into room this RN hears audible expiratory wheezes. Provider is aware. RT called and at bedside.
[2023-06-27] MEDS: cefTRIAXone 2,000 MG in SODIUM CHLORIDE 0.9% 100 ML 200 MG IV (21:36)
[2023-06-27 21:44] LABS: NT-proBNP (BNP-Adult 18+) 118 pg/mL (<125); Troponin I < 0.012 ng/mL (0.01-0.034)
[2023-06-27 21:49] LABS: Procalcitonin 0.13 ng/mL (<0.5)
[2023-06-27] MEDS: SODIUM CHLORIDE 0.9% 1,000 ML 1000 ML IV (22:02)
--- NOTE | 2023-06-27 22:08 | PC.NURSE ---
Pt requests to take home meds of 600mg gabapentin and 10mg of enalapril. Provider made aware and OKayed to take those 2 home medications. Pt has those medications in his possession and takes doses as listed above.
--- NOTE | 2023-06-27 22:18 | PC.NURSE ---
Addendum entered by David Haji R.N. 06/27/23 22:27: Per pharmacist William 2000mg vancomycin in 400mL to be given now. Original Note: [facility] pharmacist called for update on vancomycin order. Pharmacist William stated he will update and work on this.
[2023-06-27 22:19] LABS: Adenovirus Not Detected (Not Detect); B. parapertussis Not Detected (Not Detecte); Bordetella pertussis Not Detected (Not Detect); Chlamydophila pneumoniae Not Detected (Not Detect); Coronavirus 229E Not Detected (Not Detect); Coronavirus HKU1 Not Detected (Not Detect); Coronavirus NL 63 Not Detected (Not Detect); Coronavirus OC43 Not Detected (Not Detect); Human Metapneumovirus Not Detected (Not Detect); Human Rhinovirus/Enterovirus Not Detected (Not Detect); Influenza A Not Detected (Not Detect); Influenza B Not Detected (Not Detect); Mycoplasma pneumoniae Not Detected (Not Detect); Parainfluenza Virus 1 Not Detected (Not Detect); Parainfluenza Virus 2 Not Detected (Not Detect); Parainfluenza Virus 3 Not Detected (Not Detect); Parainfluenza Virus 4 Not Detected (Not Detect); Respiratory Syncytial Virus Not Detected (Not Detect); SARS- CoV-2 Not Detected (Not Detecte)
[2023-06-27] MEDS: VANCOMYCIN 2,000 MG/400 ML PIGGYBACK 200 MG IV (22:30)
[2023-06-27] MEDS: ALBUTEROL HFA PREPACK 1 BOX MISC (23:16)
[2023-06-27] MEDS: methylPREDNISolone 125 MG/2 ML VIAL IV (23:16)
[2023-06-27 23:26] LABS: Appearance Urine UA CLEAR; Bilirubin Urine UA NEGATIVE (NEGATIVE); Color Urine UA YELLOW; Glucose Urine UA NEGATIVE (Negative); Ketones Urine UA NEGATIVE (NEGATIVE); Leukocyte Esterase Urine UA NEGATIVE (NEGATIVE); Nitrite Urine UA NEGATIVE (Negative); Occult Blood Urine UA NEGATIVE (Negative); Protein Urine UA NEGATIVE (Negative); Urobilinogen Urine UA 0.2 E.U./dL (0.2)
[2023-06-27 23:38] LABS: Bacteria Urine None Seen; Culture Indicated Urine Cult Not Indicated; RBC Urine None Seen (0-5/HPF); Squamous Epithelial Cell Urine 0-1 /HPF (0-5/HPF); WBC Urine None Seen (0-5/HPF)
== END 2023-06-28 00:06 | disposition home or self-care (01) ==
PROVIDERS: Emergency Provider Emergency Medicine; PCP Family Medicine
DX: L03.116 Cellulitis of left lower limb (principal); J44.1 Chronic obstructive pulmonary disease with (acute) exacerbation; R07.9 Chest pain, unspecified; Z79.899 Other long term (current) drug therapy
CPT/HCPCS: 36415; 71045; 80053; 81001; 83605; 83880; 84145; 84484; 85025; 87040; 87633; 93005; 93010; 94640; 96365; 96367; 96375; 99284; A9270; J0696; J2930

== ENCOUNTER → 2023-06-29 14:37 | Outpatient (CLI) | payer MEDICARE, OTHER, SELFPAY ==
[2023-06-10 10:18] VITALS: BMI 31.9
== END ==
PROVIDERS: PCP Family Medicine; Visit Provider Physician Assistant
DX: R21 Rash and other nonspecific skin eruption (principal)
CPT/HCPCS: 87070; 87075; 87205

== ENCOUNTER → 2023-08-12 06:41 | Outpatient (CLI) | payer MEDICARE, OTHER, SELFPAY ==
[2023-07-02 13:24] VITALS: BMI 31.9
--- NOTE | 2023-08-12 06:42 | DI.CT.S_ITS ---
PROCEDURE: CT CHEST WO CON INDICATIONS: Abnormal CT 11/24/22 follow up recommended TECHNIQUE: Noncontrast 5 mm thick sections acquired from the pulmonary apices to the posterior costophrenic angles. 1 mm lung window, 5 mm thick coronal and sagittal and 7 mm axial MIP reformats were then acquired. For radiation dose reduction, the following was used: automated exposure control, adjustment of mA and/or kV according to patient size. COMPARISON: [facility], CT, CT CHEST WO [facility], 11/24/2022, 7:54. FINDINGS: Image quality: Excellent. Lungs and pleura: Near complete resolution of nodular opacities in the left lower lobe. No new or enlarging pulmonary nodule. No pleural effusions or pneumothorax. Central and peripheral airways are patent and normal in caliber. Mediastinum: Heart size is normal. No pericardial effusion. No mediastinal adenopathy by size criteria. Thoracic aorta and central pulmonary arteries are normal in size. Esophagus is normal in caliber. No hiatal hernia. Bones and chest wall: No suspicious bony lesions. No vertebral body compression fractures. No axillary or supraclavicular adenopathy by size criteria. No thyroid nodules which require sonographic follow up, per consensus guidelines. Upper Abdomen: Visualized upper abdominal solid organs and bowel loops appear normal in the absence of contrast. IMPRESSION: Compared to prior CT 11/24/2022, there is near complete resolution of nodular opacities left lower lobe consistent with an infectious/inflammatory etiology. No new or enlarging pulmonary nodules. Approved by: Светлана Flannery M.D. on 08/12/2023 at 10:08
== END ==
PROVIDERS: PCP Family Medicine; Referring Provider Physician Assistant; Visit Provider Physician Assistant
DX: R93.89 Abnormal findings on diagnostic imaging of other specified body structures (principal)
CPT/HCPCS: 71250

== ENCOUNTER 2023-09-14 09:13 | Emergency (ER) | payer MEDICARE, OTHER, SELFPAY ==
[2023-07-02 13:24] VITALS: BMI 31.9
[2023-09-14] VITALS (7 sets, daily range): BP systolic 136–173; BP diastolic 61–79; PULSE 66–86; RESP 18; TEMP 36.6–36.9; O2SAT 94–97; BMI 31.9
--- NOTE | 2023-09-14 09:26 | DI.RAD.S_ITS ---
PROCEDURE: XR CHEST 2V INDICATIONS: cough TECHNIQUE: 2 views of the chest were acquired. COMPARISON: [facility], CR, XR CHEST 1V, 06/27/2023, 20:58. FINDINGS: Surgical changes and devices: Lumbar fusion hardware Lungs and pleura: Lungs are clear. No pleural effusions or pneumothorax. Mediastinum: Mediastinal contours are normal. Heart size is normal. Bones and chest wall: No suspicious bony abnormalities. Soft tissues appear unremarkable. IMPRESSION: No acute cardiopulmonary abnormality is seen. Dictated by: Jimmy Sears M.D. on 09/14/2023 at 9:42 Approved by: Jimmy Sears M.D. on 09/14/2023 at 9:42
[2023-09-14 10:19] LABS: Influenza A - CEPHEID Flu A NEGATIVE (NEGATIVE); Influenza B - CEPHEID Flu B NEGATIVE (NEGATIVE); Respiratory Syncytial Virus Negative (Negative)
[2023-09-14 10:20] LABS: COVID-19 CEPHEID 4-PLEX PCR POSITIVE (Negative)
--- NOTE | 2023-09-14 10:24 | ED.URI ---
HPI - URI/Sore Throat General Chief Complaint: Upper Respiratory Symptoms Stated Complaint: Cough short of breath Time Seen by Provider: 09/14/23 10:23 Source: patient Mode of arrival: Family Vehicle History of Present Illness HPI Narrative: Patient is a 72-year-old male history of diabetes, COPD presenting today with upper respiratory like symptoms. He reports he has had cough since April however it got worse over the last 1 week. He hung to strong Mel day and she had COVID. He has not really had fever but he has some body aches. No significant chest pain. He does not feel like he is very short of breath. No abdominal pain nausea or vomiting. Related Data Home Medications Medication Instructions Recorded Confirmed clobetasol 0.05 % scalp solution topical BID 08/13/23 08/17/23 ketoconazole 2 % shampoo 1 applic topical 2XW 08/13/23 08/17/23 Previous Rx's Medication Instructions Recorded Contour Test Strips #100 ea 12/25/19 albuterol sulfate 90 mcg/actuation 2 puff inhalation Q4-6H PRN 05/15/22 aerosol inhaler (ProAir HFA) shortness of breath or wheezing #8.5 grams fluticasone propionate 50 1 spray intranasal DAILY PRN nasal 11/18/22 mcg/actuation nasal congestion #16 grams spray,suspension (Flonase Allergy Relief) atorvastatin 10 mg tablet 10 mg PO BEDTIME #90 tabs 12/31/22 enalapril maleate 20 mg tablet 20 mg PO BID #180 tabs 12/31/22 tamsulosin 0.4 mg capsule (Flomax) 0.4 mg PO DAILY #90 caps 12/31/22 glipizide 5 mg tablet 5 mg PO DAILY #90 tabs 01/14/23 gabapentin 600 mg tablet 600 mg PO .5XDAILY #14 tabs 02/26/23 amlodipine 5 mg tablet 5 mg PO DAILY #90 tabs 03/15/23 hydrocodone 7.5 mg-acetaminophen 1 tab PO Q4-6H PRN pain #14 tabs 03/22/23 325 mg tablet clobetasol 0.05 % shampoo 1 applic topical BEDTIME 4 weeks 04/27/23 #118 mL clobetasol 0.05 % lotion 1 applic topical BID #118 mL 06/11/23 hydrocortisone 2.5 % topical cream 1 applic topical BID PRN 06/11/23 Hemorrhoids #60 grams metformin 500 mg tablet,extended 500 mg PO QPM #90 tabs 08/09/23 release 24 hr duloxetine 30 mg capsule,delayed 30 mg PO DAILY #30 caps 08/12/23 release (Cymbalta) Allergies Allergy/AdvReac Type Severity Reaction Status Date / Time Sulfa (Sulfonamide Allergy Severe BLISTER, Verified 08/17/23 08:02 Antibiotics) skin [SULFA (SULFONAMIDE comes off ANTIBIOTICS)] my legs latex [LATEX] Allergy Mild SKIN Verified 08/17/23 08:02 IRRITATION amoxicillin [AMOXICILLIN] AdvReac Severe Makes my Verified 08/17/23 08:02 skin crawl clavulanic acid AdvReac Severe AUGMENTIN/V Verified 08/17/23 08:02 [CLAVULANIC ACID] OMITING Penicillins [PENICILLINS] AdvReac Severe NAUSEA/VOMI Verified 08/17/23 08:02 TING ciprofloxacin [CIPROFLOXACIN] AdvReac Intermediate MADE PT Verified 08/17/23 08:02 FEEL RUMMY/NAUSEA erythromycin base AdvReac Intermediate SKIN Verified 08/17/23 08:02 [ERYTHROMYCIN BASE] CRAWLING Patient History Medical History Peripheral neuropathy Spinal stenosis COPD (chronic obstructive pulmonary disease) Lumbar disc herniation with radiculopathy Anxiety Degenerative arthritis of lumbar spine Inflamed internal hemorrhoid (02/2018) BPH (benign prostatic hyperplasia) GERD (gastroesophageal reflux disease) Controlled type 2 diabetes mellitus without complication (04/30/16) Tear of rotator cuff (09/19/14) Essential hypertension Surgical History History of lumbar fusion (02/01/19) Hx of microdiscectomy (07/01/18) Hx of hand surgery (~2004) Status post epidural steroid injection H/O colonoscopy (07/08/15) History of elbow surgery H/O sinus surgery (2003) History of sebaceous cyst (2000) Hx of inguinal hernia surgery (1996) Status post laminectomy Family History Father VT (myocardial infarction) Grandmother Diabetes mellitus Mother Lymphoma Grandfather Colon cancer Sister Bladder cancer Social History marital status: household members: none Smoking Status: Former smoker alcohol intake: current Smoking Status: Former smoker alcohol intake frequency: holidays/special occasions only Alcohol type: beer Substance Use Type: does not use Exam Initial Vital Signs Initial Vital Signs: Vital Signs Pulse Rate 80 09/14/23 09:20 Pulse Oximetry 96 09/14/23 09:20 GENERAL: Alert 72-year-old male and in no acute distress. HEENT: Head atraumatic,EOMI, pupils reactive, face symmetric, moist mucous membranes CARDIOVASCULAR: Regular rate and rhythm without murmurs, rubs or gallops. RESPIRATORY: No conversational dyspnea mild expiratory wheezing no rales or rhonchi ABDOMEN: Soft, nontender. Normoactive bowel sounds all 4 quadrants. No guarding or rebound. EXTREMITIES: Normal range of motion, no clubbing or edema. Neurovascularly intact NEUROLOGICAL: Alert and oriented x4. SKIN: Warm, dry, no laceration, no petechiae, no rashes or lesions. Course Orders Ordered: ED Orders 09/14/23 09:21 Covid-19 + FLU A/B + RSV - PCR Stat 09/14/23 09:26 CXR [XR chest 2V] Stat Vital Signs Vital signs: Vital Signs - 8 hr 09/14/23 09:20 09/14/23 09:28 09/14/23 09:30 Temperature 97.9 F Pulse Rate 80 86 71 Respiratory Rate 18 Blood Pressure 173/79 H Pulse Oximetry 96 95 95 Oxygen Delivery Method Room Air 09/14/23 09:31 09/14/23 09:31 09/14/23 10:00 Temperature Pulse Rate 71 Respiratory Rate Blood Pressure 140/63 136/61 Pulse Oximetry 94 Oxygen Delivery Method 09/14/23 10:00 09/14/23 10:30 09/14/23 10:30 Temperature Pulse Rate 66 74 Respiratory Rate Blood Pressure 151/70 H Pulse Oximetry 94 97 Oxygen Delivery Method 09/14/23 10:55 Temperature 98.5 F Pulse Rate Respiratory Rate Blood Pressure Pulse Oximetry Oxygen Delivery Method MDM - URI/Sore Throat Lab Data Labs: Lab Results 09/14/23 Range/Units 09:21 SARS-CoV-2 (PCR) Positive H (Negative) Influenza A (RT-PCR) Flu a negative (NEGATIVE) Influenza B (RT-PCR) Flu b negative (NEGATIVE) RSV (PCR) Negative (Negative) Imaging Data Chest x-ray: Radiologist's Impression: PROCEDURE: XR CHEST 2V INDICATIONS: cough TECHNIQUE: 2 views of the chest were acquired. COMPARISON: [facility], CR, XR CHEST 1V, 06/27/2023, 20:58. FINDINGS: Surgical changes and devices: Lumbar fusion hardware Lungs and pleura: Lungs are clear. No pleural effusions or pneumothorax. Mediastinum: Mediastinal contours are normal. Heart size is normal. Bones and chest wall: No suspicious bony abnormalities. Soft tissues appear unremarkable. IMPRESSION: No acute cardiopulmonary abnormality is seen. Dictated by: Jimmy Sears M.D. on 09/14/2023 at 9:42 MDM Narrative Medical decision making narrative: Patient is 72-year-old male history of diabetes COPD presenting today with body aches. He appears weak. No significant hypoxia shortness of breath. Offered a nebulizer denied. Seems reasonable. He is positive for COVID but chest x-ray is negative for pneumonia. Supportive care only. Symptoms have been ongoing for about a week. This time does not meet admission criteria. Discharge Plan Departure Patient Disposition: Home Clinical Impression: COVID-19 Instructions: DI for COVID-19 (Suspected or Confirmed ) Activity Restrictions/Additional Instructions: *You have been diagnosed with COVID-19 *What to do: Increase fluids as tolerated rest *Continue to take medications as directed Tylenol 650 mg every 4-6 hours if needed for lykj-ov-zvmgnptl pain Motrin 600 mg every 6 hours if needed for mspg-hc-drbrzmbb pain *Follow up with your primary care provider in 2-3 days or call [phone] *Return to ER if you should have increasing shortness of breath chest pain or any new, worsening or concerning symptoms Prescriptions: No Action enalapril maleate 20 mg tablet 20 mg PO BID Qty: 180 3RF atorvastatin 10 mg tablet 10 mg PO BEDTIME Qty: 90 3RF tamsulosin [Flomax] 0.4 mg capsule 0.4 mg PO DAILY Qty: 90 3RF clobetasol 0.05 % solution topical BID ketoconazole 2 % shampoo 1 applic topical 2XW albuterol sulfate [ProAir HFA] 90 mcg/actuation HFA aerosol inhaler 2 puff inhalation Q4-6H PRN (Reason: shortness of breath or wheezing) Qty: 8.5 0RF (DME) Contour Test Strips 0 .Route .MEDSUPPLY Qty: 100 0RF Rx Instructions: Use daily as directed to monitor blood glucose. glipizide 5 mg tablet 5 mg PO DAILY Qty: 90 1RF gabapentin 600 mg tablet 600 mg PO .5XDAILY Qty: 14 0RF amlodipine 5 mg tablet 5 mg PO DAILY Qty: 90 1RF Rx Instructions: Take one tablet once daily with Enalapril (either a.m. or p.m. Enalapril) clobetasol 0.05 % shampoo 1 applic topical BEDTIME 28 Days Qty: 118 1RF clobetasol 0.05 % lotion 1 applic topical BID Qty: 118 1RF hydrocortisone 2.5 % cream 1 applic TOP BID PRN (Reason: Hemorrhoids) Qty: 60 1RF metformin 500 mg tablet extended release 24 hr 500 mg PO QPM Qty: 90 3RF duloxetine [Cymbalta] 30 mg capsule,delayed release(DR/EC) 30 mg PO DAILY Qty: 30 3RF fluticasone propionate [Flonase Allergy Relief] 50 mcg/actuation spray,suspension 1 spray intranasal DAILY PRN (Reason: nasal congestion) Qty: 16 0RF Rx Instructions: administer into each nostril hydrocodone-acetaminophen 7.5-325 mg tablet 1 tab PO Q4-6H PRN (Reason: pain) Qty: 14 0RF Referrals: Cas Marin MD [Primary Care Provider] - Stand Alone Forms: Patient Portal/API, Work Release Note
== END 2023-09-14 10:56 | disposition home or self-care (01) ==
PROVIDERS: Emergency Provider Emergency Medicine; PCP Family Medicine
DX: U07.1 COVID-19 (principal)
CPT/HCPCS: 0241U; 71046; 99282; 99283

== ENCOUNTER → 2023-11-02 14:47 | Outpatient (CLI) | payer MEDICARE, OTHER, SELFPAY ==
[2023-07-02 13:24] VITALS: BMI 31.9
[2023-11-02 16:09] LABS: Add Manual Diff / Slide Review NO; Basophils Absolute Auto 100 /uL (0-100); Basophils Percent Auto 1.5 % (0-2); Eosinophils Absolute Auto 200 /uL (0-450); Hematocrit 41.9 % (41-53); Lymphocytes Absolute Auto 1400 /uL (1100-4500); Lymphocytes Percent Auto 19.1 % (25-40); Mean Corpuscular HGB Conc 33.5 % (30-36); Mean Corpuscular Hemoglobin 28.7 PG (26-34); Mean Corpuscular Volume 85.6 fL (80-100); Monocytes Absolute Auto 500 /uL (0-900); Monocytes Percent Auto 6.2 % (3-14); Neutrophils Absolute Auto 5200 /uL (1500-7000); Neutrophils Percent Auto 70.2 % (50-75); Platelet Count 171 X10^3/uL (150-400); Red Blood Cell Count 4.89 X10^6/uL (4.5-5.9); Red Cell Distribution Width 14.2 % (11.6-14.8); White Blood Cell Count 7.4 X10^3/uL (4.5-11.0)
[2023-11-02 16:29] LABS: Hemoglobin A1C% w Est Avg Glu 9.8 % (4.0-6.0)
[2023-11-02 16:40] LABS: Alanine Aminotransferase 55 IU/L (<50); Albumin 4.2 g/dL (3.5-5.0); Albumin Globulin Ratio 1.2 (1.0-2.8); Alkaline Phosphatase 77 U/L (38-126); Aspartate Aminotransferase 64 IU/L (17-59); BUN Creatinine Ratio 15.3 (6-22); Bilirubin Total 0.7 mg/dL (0.2-1.3); Blood Urea Nitrogen 18 mg/dL (9-20); Calcium 9.2 mg/dL (8.4-10.2); Carbon Dioxide 26 mmol/L (22-32); Chloride 101 mmol/L (98-107); Estimated Glomerular Filt Rate > 60 mL/min (>60); Globulin 3.4 g/dL (1.7-4.1); Glucose 191 mg/dL (80-110); HEMOLYSIS < 15 (0-50); Potassium 4.4 mmol/L (3.4-5.1); Sodium 138 mmol/L (137-145); Total Protein 7.6 g/dL (6.3-8.2)
== END ==
PROVIDERS: PCP Family Medicine; Referring Provider Ophthalmology; Visit Provider Ophthalmology
DX: E11.65 Type 2 diabetes mellitus with hyperglycemia (principal)
CPT/HCPCS: 36415; 80053; 83036; 85025

== ENCOUNTER 2023-11-05 07:57 | Day surgery (SDC) | payer SELFPAY ==
[2023-07-02 13:24] VITALS: BMI 31.9
--- NOTE | 2023-11-04 17:25 | PM.PREOP ---
Pre-operative Note COVID-19 COVID-19 status: Not tested Interval Note History & Physical reviewed/Exam performed by Physician: Yes Changes to H&P: No H&P completed within 30 days and has changed as indicated here:: Fasting glucose today, elevated. Please see duplicate preoperative note which contains additional data including preoperative antibiotics and glucose assessment
--- NOTE | 2023-11-04 17:28 | P.OP_ITS ---
Operative Date/Time/Diagnoses Date of procedure: 11/05/23 Time of procedure: 09:30 Pre-op diagnosis: cosmetic lower lid bleparoplasty with fatpad removal Procedure & Clinicians Procedure: Preop diagnosis: Cosmetic Lower lid blepharoplasty and removal of herniated fat pad. Postop diagnosis, status post lower lid herniated fat pad removal and revision of lower lid blepharoplasty Preoperative diagnoses: Poorly controlled diabetes, non-insulin dependent COPD Enlarge prostate hypertension Same procedure as scheduled: Yes Indications: Patient has history of floppy eyelid syndrome. He has had bilateral lid surgery with upper lid blepharoplasty bilateral ectropion repair and bilateral lower lid herniated fat pad removal. This surgery was extensive and improved his symptoms considerably but he now has some residual herniated fat inferiorly that he would like removed as a cosmetic procedure. He does have multiple allergies. He has a poorly controlled diabetic with no recent changes and no symptoms. His previous surgery was difficult due to his inability to hold still. He is very restless and he requests laryngeal mask airway this surgery. Prior to sedation he was given nebulizer treatment. In the preoperative holding area the amount of fat and skin to be removed was carefully marked with indelible ink. He has his fasting blood sugar checked and it is elevated to 45.. He understands that improve control does lower his infection risk and has multiple antibiotic allergies. He wishes to proceed with surgery but I will have him get intraoperative Cefalexin and use an antibiotic course postop of azithromycin to lessen infection risk given as were going into the orbit. He is taken to the operating room given IV sedation. Inferior local anesthetic consisting of 1% xylocaine with epinephrine mixed with 0.5% normal Saline 6 cc to each lower lid is given. This is then supplemented with full strength 1% xylocaine with epinephrine mixed with Marcaine 0.25-0.5% and Wydase. He was then prepped. Attention was placed to the right lower lid . It was noted that there was malpositioning of the medial canthus with extensive star tissue present. The previous canthotomy was reopened for 1 cm. The canthal tendon was not lysed. The previous scar tissue was removed and there was still good adherience to the periosteum. Therefore a superior and inferior marginal lid incision was made. This was then left open while the inferior lid was addressed. A subciliary incision was made with a 15 Bard-Usnil blade along the previous scar. A dissection was then carried out to the level of the orbital septum. Each fat pad was then identified and buttonholed and removed using hemostat. There was very extensive residual nasal fat pad. Medial and temporal fat pads were also explored and removed as needed. It was removed as much as possible. Cautery applied. Due to previous scar tissue he was checked extensively for any residual bleeding. A Gelfoam was also used and left in the eye in the areas of the deep orbital incisions in order to lessen postoperative bleeding. There was a small amount of residual skin removed along the in ferior lid and it was closed with 6.0 running Vicryl suture. The lateral canthus was then reconstructed interrupted and running 6.0 Vicryl sutures with good position. The same procedure without surgery to the lateral canthus was then repeated on the left side. The contour of this lateral canthus was in good position and he liked it preoperatively. Subciliary incision was done as in the other side extensive removal of large inferior nasal fat pad is the other side. Cautery was applied and Gelfoam also placed. Interrupted and running 6 0 Vicryl suture with good position. He returned recovery room in good condition. Operative Notes Estimated Blood Loss (mL): 2 Post-operative Plan for aftercare: Patient will require postoperative antibiotics due to increased infection risk due to uncontrolled diabetes. The he will also be given pain medication of hydrocodone 7 point 5 mg mixed with Tylenol 325 mg. One p.o. every 4 hours as needed pain. He will be given as is through my sent 500 mg twice a day on day 1 and then 500 mg a day for 4 more days. He is to do extensive cold compresses. He is to limit activity. He will be seen in the office as needed and in 10 days for suture removal. He is being referred back to Dr. Wing for improved diabetic control.
[2023-11-05] VITALS (8 sets, daily range): BP systolic 124–179; BP diastolic 51–82; PULSE 66–70; RESP 12–17; TEMP 36.2; O2SAT 92–96; BMI 31.1
[2023-11-05] MEDS: LACTATED RINGERS 1,000 ML 42 ML IV (08:49)
[2023-11-05] MEDS: ALBUTEROL 2.5 MG/3 ML NEB (ADULT) INH (09:44)
--- NOTE | 2023-11-05 10:30 | PM.PREOP ---
Pre-operative Note Interval Note History & Physical reviewed/Exam performed by Physician: Yes Changes to H&P: No H&P completed within 30 days and has changed as indicated here:: Glucose is 245 this morning. He is high risk for infection so will add intra op cephalosporin due to his multiple allergies allergies and postop a Zithromax course. Also use topical antibiotics and he is encouraged to improve his diabetic control. As he is not insulin using current labile not give it to him prior to surgery. Preoperative discussion he would like to have laryngeal mask airway anesthesia for better comfort. He was given a preoperative nebulizer treatment.
[2023-11-05] MEDS: CEFAZOLIN 2 GM/100 ML PREMIX 100 ML IV (10:51)
[2023-11-05] MEDS: LIDOCAINE 2% W/EPI 3 ML, BUPIVACAINE 0.5% (PF) 2 ML, HYALURONIDASE 150 UNIT INJ (11:03)
[2023-11-05] MEDS: ERYTHROMYCIN OPHTH 1 GM OINT 1 APPLIC EYE-BOTH (11:06)
[2023-11-05] MEDS: OXYCODONE IR 5 MG TABLET PO (12:45)
[2023-11-05] MEDS: OXYCODONE/ACETAMINOPHEN 5/325 TABLET 1 TAB PO (12:58)
== END 2023-11-05 13:14 | disposition home or self-care (01) ==
PROVIDERS: PCP Family Medicine; Referring Provider Ophthalmology; Visit Provider Ophthalmology
PROC: (CPT 15821; principal; 2023-11-05 09:15)
DX: H02.835 Dermatochalasis of left lower eyelid (principal); H02.832 Dermatochalasis of right lower eyelid
CPT/HCPCS: 15821; A9270; J0690; J1100; J2250; J2405; J2704; J3010; J3470; J7613

== ENCOUNTER 2023-12-03 12:48 | Day surgery (SDC) | payer MEDICARE, OTHER, SELFPAY ==
[2023-07-02 13:24] VITALS: BMI 31.9
[2023-12-03] VITALS (9 sets, daily range): BP systolic 114–180; BP diastolic 59–88; PULSE 63–80; RESP 12–18; TEMP 36.1–36.7; O2SAT 93–95
--- NOTE | 2023-12-03 14:30 | PM.PREOP ---
Pre-operative Note Interval Note History & Physical reviewed/Exam performed by Physician: Yes Changes to H&P: No
--- NOTE | 2023-12-03 15:11 | P.OP.COLON_ITS ---
Operative Date/Time/Diagnoses Date of procedure: 12/03/23 Time of procedure: 15:11 Pre-op diagnosis: rectal bleeding Post-op diagnosis: same Procedure & Clinicians Study performed: Diagnostic colonoscopy Hemorrhoidal banding Same procedure as scheduled: Yes Indications: Rectal bleeding Surgeon: Abner Saldivar Procedure Notes Procedure in detail: The history and physical was performed/updated and the patient is ASA class is 2. The procedure was discussed in detail with the patient. Potential risks complications including infection, bleeding, missed diagnosis, perforation, need for surgery, and were explained. Their questions were answered and informed consent was obtained. Patient was brought to the procedure room and placed standard monitoring equipment. The patient's vital signs were monitored continuously throughout the entire procedure. Prior to starting time-out was performed. The patient was placed in the left lateral recumbent position. Procedural sedation was administered by anesthesia. Examination began with a thorough inspection of the perianal area there was no evidence of fissures, fistulae, external hemorrhoids or cutaneous malignancy. The colonoscopy scope was then placed into the anal canal and was advanced to the cecum, which was identified by the ileocecal valve, the appendiceal orifice and the confluence of the taenia. The scope was then slowly withdrawn examining colon thoroughly in all directions, irrigating it of any residual stool. The scope was retroflexed within the rectum The patient tolerated the procedure well. They will be discharged once criteria are met. The prep was of good/excellent quality. The withdrawl time was 6 minutes. FINDINGS * No masses polyps or inflamation * Grade 3 internal hemorrhoids Following completion of the colonoscopy proceeded with hemorrhoidal banding. The anoscope was placed and this demonstrates grade 3 internal hemorrhoids in the left lateral and right posterior positions. Each pedicle was grasped with suction elevated and then doubly ligated at its base. He tolerated the procedure well and was transferred to recovery in stable condition. Specimen(s): none sent Impression: internal hemorrhoids Post-procedure Plan for aftercare: No further colonoscopy necessary unless symptomatic Disposition: same day surgery
[2023-12-03] MEDS: ONDANSETRON 4 MG/2 ML INJ IV (15:24)
[2023-12-03] MEDS: OXYCODONE IR 5 MG TABLET PO (15:24)
[2023-12-03] MEDS: HYDROMORPHONE 1 MG INJ 0.5 MG IV (15:28)
[2023-12-03] MEDS: OXYCODONE/ACETAMINOPHEN 5/325 TABLET 2 TAB PO (16:03)
== END 2023-12-03 16:23 | disposition home or self-care (01) ==
PROVIDERS: PCP Family Medicine; Referring Provider Surgery; Visit Provider Surgery
PROC: 0DJD8ZZ Inspection of Lower Intestinal Tract, Via Natural or Artificial Opening Endoscopic (ICD-10-PCS; CPT 45378; principal; 2023-12-03 13:30)
DX: K64.2 Third degree hemorrhoids (principal)
CPT/HCPCS: 45378; 46221; 82962; J1170; J2405; J2704

== ENCOUNTER → 2023-12-22 08:44 | Outpatient (CLI) | payer MEDICARE, OTHER, SELFPAY ==
[2023-07-02 13:24] VITALS: BMI 31.9
--- NOTE | 2024-01-05 10:02 | DIAB.MNTFU ---
Follow-up Diabetes Medical Nutrition Therapy Assessment Name: Ryland Quevedo Date: 12/22/23 Time: 9-10a Dx: Type II Diabetes Ryland presents for DM f/u. Last RD visit 02/[address] family leave. During that time, Ryland's HgA1c got down to 7.5%, however most recent lab value in Oct up to 9.8% and he is understandably worried about this. Endorses improved neuropathy in his feet since adding glipizide. Continues to eat out most days for lunch. High sodium options at each meal with villanueva, burgers, fries, hot dogs, etc. Also high CHO intake at these meals. Limited veggie intake. Feels he has persistent hunger and wants an appetite suppressant, GLP1? Some concerns for GLP1 coverage with [facility] as primary insurance. We have discussed lunch and easy dinner options in the past with meal planning. This is challenging for him. We have also discussed best options for frozen meals. Will continue to review nutrition ideas. c/o hemorrhoids, seeing GI. Plan for new labs and PCP f/u in December. Diet Recall: 6-7a: eggs, 2 toast, 4.5 villanueva, 1c coffee with sf creamer and stevia 11a: double hamburger with large fries and diet coke OR fish and chips or skip lunch 5-7p: 5 cheese stuffed hot dogs OR 1/2 lb burger with veggies and olives 1a: pickles and cheese 16.9oz x 4 water, sf ricardo 2x per day Anthropometrics: Ht: 68 Wt: 207.5# 09/2023 Physical Activity: Just started PT yesterday. No program in place. Self-Monitoring Blood Glucose: Currently not checking. Was 125-200mg/dl previously per report. Diabetes Medications: 500mg Metformin XR 5mg Glipizide Pertinent Labs: HgA1c: 10/2023: 9.8% 05/2023: 7.5% 12/2022: 9.3% 09/2022: 9.3% 07/2022: 8.5% 01/2022 7.6% 07/2021 6.6% 01/2021 6.8% 02/2020 6.5% 04/2019 6.2% Past Medical History: (Last Reviewed 11/04/23 @ 09:34 by Abner Saldivar MD) Anxiety R/T inability to work; anxious to return BPH (benign prostatic hyperplasia) Controlled type 2 diabetes mellitus without complication (04/30/16) COPD (chronic obstructive pulmonary disease) Degenerative arthritis of lumbar spine Essential hypertension GERD (gastroesophageal reflux disease) Inflamed internal hemorrhoid (02/2018) Lumbar disc herniation with radiculopathy Peripheral neuropathy Spinal stenosis Tear of rotator cuff (09/19/14) Nutrition Rx: Carbohydrates: Meal: 45g Snack:15-30g Nutrition Diagnosis: Excessive CHO intake r/t eating out portions and report of excessive hunger aeb hgA1c 9.8% and diet recall Excessive Na intake r/t stage of change contemplative aeb eating out portions and frequency Intervention: This participant was very receptive. Provided appropriate educational handouts. Discussed the following topics: Excessive hunger and relation to Dm and processed foods Potential medications for Dm management and appetite suppressant Importance of BG monitoring and when to check Encouraged reduced eating out frequency and portions Motivations for managing DM Created SMART goals for patient self-care and success. Goals: Check out frozen meals with less than 50g CHO and less than 600mg Na- not met Check out meal order options discussed- not met Check FBG and HS BG- not met Chat with PCP about med options- new Bring sandwich to lunch- new Check FBG daily - new Follow-up: DONNA JULIEN follow-up in 2-3 weeks Aleah Farah RDN, ANAYA Certified Diabetes Care and Asset Card Clerk P: [phone] Thank you for this referral
== END ==
PROVIDERS: PCP Family Medicine; Referring Provider Family Medicine; Visit Provider Family Medicine
DX: E11.9 Type 2 diabetes mellitus without complications (principal); Z79.84 Long term (current) use of oral hypoglycemic drugs; Z71.3 Dietary counseling and surveillance
CPT/HCPCS: 97803

== ENCOUNTER → 2024-01-03 06:36 | Outpatient (CLI) | payer MEDICARE, OTHER, SELFPAY ==
[2023-07-02 13:24] VITALS: BMI 31.9
[2024-01-03 08:07] LABS: Hemoglobin A1C% w Est Avg Glu 10.9 % (4.0-6.0)
[2024-01-03 08:24] LABS: Alanine Aminotransferase 51 IU/L (<50); Albumin 4.5 g/dL (3.5-5.0); Albumin Globulin Ratio 1.7 (1.0-2.8); Alkaline Phosphatase 72 U/L (38-126); Aspartate Aminotransferase 53 IU/L (17-59); BUN Creatinine Ratio 16.3 (6-22); Bilirubin Total 0.6 mg/dL (0.2-1.3); Blood Urea Nitrogen 14 mg/dL (9-20); Calcium 9.4 mg/dL (8.4-10.2); Carbon Dioxide 28 mmol/L (22-32); Chloride 100 mmol/L (98-107); Cholesterol 119 mg/dL (140-199); Estimated Glomerular Filt Rate > 60 mL/min (>60); Globulin 2.6 g/dL (1.7-4.1); Glucose 242 mg/dL (80-110); HDL Cholesterol 33 mg/dL (40-60); HEMOLYSIS < 15 (0-50); LDL Cholesterol Calculated 47 mg/dL (<100); Potassium 4.3 mmol/L (3.4-5.1); Sodium 137 mmol/L (137-145); Total Protein 7.1 g/dL (6.3-8.2); Triglycerides 193 mg/dL (35-150)
[2024-01-03 08:29] LABS: Creatinine Urine Random 245.3 mg/dL
[2024-01-03 08:52] LABS: Microalbumi Creatinin Ratio Ur 179.7 ug/mg CR (<30); Microalbumin Urine Random 44.1 mg/dL (0-1.6)
[2024-01-03 08:55] LABS: TSH w/ Reflex to FT4 1.88 uIU/mL (0.47-4.68)
== END ==
PROVIDERS: PCP Family Medicine; Referring Provider Physician Assistant; Visit Provider Physician Assistant
DX: E11.65 Type 2 diabetes mellitus with hyperglycemia (principal); I10 Essential (primary) hypertension; E78.2 Mixed hyperlipidemia
CPT/HCPCS: 36415; 80053; 80061; 82043; 82570; 83036; 84443

== ENCOUNTER 2024-01-19 06:46 | Day surgery (SDC) | payer MEDICARE, OTHER, SELFPAY ==
[2023-07-02 13:24] VITALS: BMI 31.9
[2024-01-12 13:40] VITALS: BMI 31.7
--- NOTE | 2024-01-18 08:07 | PM.PREOP ---
Pre-operative Note Interval Note History & Physical reviewed/Exam performed by Physician: Yes Changes to H&P: No
--- NOTE | 2024-01-19 | PATH_ITS ---
[facility] Accession Number: [id number] No. of containers..01 Tissue . 01 Material submitted: . hemorrhoids - INTERNAL HEMORRHOIDS . 01 Diagnosis: INTERNAL HEMORRHOIDS: Congested squamous mucosa consistent with benign hemorrhoid tissue. No dysplasia identified. [facility] 01/24/20241158 Local . 01 Electronically signed: . Ismael Mcgovern MD, Pathologist NPI- [id number] . 01 Gross description: . Specimen is received in formalin, labeled with two patient identifiers and internal hemorrhoids. The specimen consists of three barry-brown, focally cauterized, soft tissues partially surfaced by a white, glistening, focally hemorrhagic mucosa. Tissues range from 2.0 x 0.8 x 0.5 cm up to 2.4 x 1.1 x 0.8 cm. The cauterized margins are inked. The specimen is sectioned to show dilated and congested vessels. Tread Builder sections are submitted in cassette A1. ([id number]) /Familia 01/24/20241158 Local . 01 Pathologist provided ICD-10: K64.9 . 01 CPT . 086664 Specimen Comment: A courtesy copy of this report has been sent to [phone] Performed at: 01 [facility] [address] [place] [address] [address] [facility], [place], [place] [id number] MD Ismael Mcgovern MD Phone: [phone]
[2024-01-19 07:20] VITALS: BP 157/78; PULSE 81; RESP 18; TEMP 36.3; O2SAT 96; BMI 30.2
[2024-01-19] MEDS: LACTATED RINGERS 1,000 ML 21 ML IV (07:34)
[2024-01-19] MEDS: ACETAMINOPHEN 325 MG TABLET 975 MG PO (07:34)
[2024-01-19] MEDS: INSULIN REGULAR 100 UNIT/ML 3 ML VIAL IV ×2 (07:48→08:55)
[2024-01-19] MEDS: BUPIVACAINE LIPOSOME 266 MG/20 ML VIAL INJ (08:15)
[2024-01-19] MEDS: BUPIVACAINE 0.25% (PF) VIAL 30 ML INJ (08:16)
[2024-01-19] MEDS: DIBUCAINE 1% OINT 28 GM 1 APPLIC TOP (08:23)
[2024-01-19 08:44] VITALS: BP 107/51; PULSE 97; RESP 12; TEMP 37.1; O2SAT 95
[2024-01-19 08:49] VITALS: BP 140/72; PULSE 113; RESP 18; O2SAT 94
[2024-01-19 08:54] VITALS: BP 145/63; PULSE 92; RESP 16; O2SAT 93
[2024-01-19 09:05] VITALS: BP 120/66; PULSE 89; RESP 12; TEMP 36.6; O2SAT 92
--- NOTE | 2024-01-19 09:05 | PM.OP.1 ---
Operative Date/Time/Diagnoses Date of procedure: 01/19/24 Time of procedure: 09:05 Pre-op diagnosis: Internal hemorrhoids Post-op diagnosis: same Procedure & Clinicians Procedure: Excisional hemorrhoidectomy x3 Same procedure as scheduled: Yes Indications: 73-year-old man with symptomatic internal hemorrhoids. He underwent hemorrhoidal banding which did not significantly improve in his symptoms. He returns today for excisional hemorrhoidectomy following discussion of risks benefits and alternatives. Surgeon: Abner Saldivar Management Sme: [place] Anesthesia Type: General Operative Notes Findings: Internal hemorrhoids grade 3 left lateral, right anterior right posterior Specimen(s): other (Hemorrhoid) Estimated Blood Loss (mL): 50 Procedure in detail: The patient was brought to the operating room placed supine on the table. Bilateral lower extremity compression devices were applied. General anesthesia was induced and they were intubated with an endotracheal tube. They were then placed into prone position and appropriately padded. They were then prepped and draped in usual sterile fashion. Time-out was performed. Rectal block was performed by injecting 20 mL of Exparel into the intersphincteric groove. An internal examination of the anal canal was made. The right anterior and right posterior and left lateral hemorrhoid pedicles freely prolapsed consistent with grade 3. Beginning with the left lateral pedicle it was grasped elevated and excised with electrocautery off the internal sphincter. The mucosal defect was then closed with a running 3-0 Vicyrl suture. Hemostasis was checked. The procedure was then repeated for the right anterior and posterior. The specimens were passed off the field. Wound was irrigated with saline. Gelfoam coated in Dibucaine ointment 1% was then placed into the anal canal. Sponge and instrument counts were correct at the end of the procedure. They emerged from anesthesia were extubated and transferred to the postoperative care unit in stable condition. Complications: none Post-operative Condition: stable Disposition: same day surgery
[2024-01-19 09:09] VITALS: BP 118/59; PULSE 94; RESP 14; O2SAT 95
== END 2024-01-19 09:32 | disposition home or self-care (01) ==
PROVIDERS: PCP Family Medicine; Referring Provider Surgery; Visit Provider Surgery
PROC: (CPT 46260; principal; 2024-01-19 07:45)
DX: K64.2 Third degree hemorrhoids (principal); E11.9 Type 2 diabetes mellitus without complications; J44.9 Chronic obstructive pulmonary disease, unspecified; Z79.84 Long term (current) use of oral hypoglycemic drugs
CPT/HCPCS: 46260; 82962; C9290; J0330; J2405; J2704; J3010

== ENCOUNTER → 2024-01-20 09:17 | Outpatient (CLI) | payer MEDICARE, OTHER, SELFPAY ==
[2023-07-02 13:24] VITALS: BMI 31.9
[2024-01-20 09:47] LABS: Add Manual Diff / Slide Review NO; Basophils Absolute Auto 100 /uL (0-100); Basophils Percent Auto 0.9 % (0-2); Eosinophils Absolute Auto 200 /uL (0-450); Eosinophils Percent Auto 2.7 % (2-4); Hematocrit 40.7 % (41-53); Hemoglobin 13.4 g/dL (13.5-17.5); Lymphocytes Absolute Auto 1000 /uL (1100-4500); Mean Corpuscular HGB Conc 32.8 % (30-36); Mean Corpuscular Hemoglobin 28.1 PG (26-34); Mean Corpuscular Volume 85.4 fL (80-100); Monocytes Absolute Auto 500 /uL (0-900); Monocytes Percent Auto 6.6 % (3-14); Neutrophils Absolute Auto 5500 /uL (1500-7000); Neutrophils Percent Auto 75.8 % (50-75); Platelet Count 142 X10^3/uL (150-400); Red Blood Cell Count 4.77 X10^6/uL (4.5-5.9); Red Cell Distribution Width 14.2 % (11.6-14.8); White Blood Cell Count 7.3 X10^3/uL (4.5-11.0)
== END ==
PROVIDERS: PCP Family Medicine; Referring Provider Nurse Practitioner Family; Visit Provider Nurse Practitioner Family
DX: R22.1 Localized swelling, mass and lump, neck (principal)
CPT/HCPCS: 36415; 85025

== ENCOUNTER → 2024-01-21 07:53 | Outpatient (CLI) | payer MEDICARE, OTHER, SELFPAY ==
[2023-07-02 13:24] VITALS: BMI 31.9
--- NOTE | 2024-01-21 07:54 | DI.CT.S_ITS ---
PROCEDURE: CT SOFT TISSUE NECK W CON INDICATIONS: bilateral swollen lymph nodes > 1 month TECHNIQUE: After the administration of intravenous contrast, 3.0 mm axial sections acquired from the sella to the aortic arch. Additional oblique axial 3.0 mm sections acquired through the pharynx. 3 mm thick coronal and sagittal reformats were generated. For radiation dose reduction, the following was used: automated exposure control. COMPARISON: None. FINDINGS: Image quality: Excellent. Lymph nodes: No enlarged lymph nodes seen throughout the neck. Vessels: Visualized vasculature appears patent. Neck spaces: The oropharynx, nasopharynx, and pharynx demonstrate no mucosal lesions. The vocal cords, false vocal cords, pyriform sinuses, epiglottis, vallecula, and tongue base all appear normal. Extramucosal spaces appear unremarkable. Glands: The parotid and submandibular glands appear normal. Thyroid gland demonstrates low-attenuation in the right lobe unchanged.. Miscellaneous: Visualized brain and orbits appear normal. Lung apices appear clear. Superficial soft tissues appear normal. Bones: No suspicious bony lesions. Visualized sinuses and mastoids appear unremarkable. IMPRESSION: No adenopathy. No abnorma mass lesions. Dictated by: Hanna Meyer M.D. on 01/21/2024 at 9:29 Approved by: Hanna Meyer M.D. on 01/21/2024 at 9:34
== END ==
PROVIDERS: PCP Family Medicine; Referring Provider Nurse Practitioner Family; Visit Provider Nurse Practitioner Family
DX: R59.1 Generalized enlarged lymph nodes (principal)
CPT/HCPCS: 70491; Q9967

== ENCOUNTER 2024-01-29 22:14 | Emergency (ER) | payer MEDICARE, OTHER, SELFPAY ==
[2023-07-02 13:24] VITALS: BMI 31.9
[2024-01-29 22:31] VITALS: BP 170/79; PULSE 82; RESP 17; TEMP 36.2; O2SAT 98; BMI 30.4
--- NOTE | 2024-01-29 22:38 | DI.RAD.S_ITS ---
PROCEDURE: XR ACUTE ABDOMEN SERIES INDICATIONS: recent surgery, constipation, rectal pain TECHNIQUE: One view chest and two views of the abdomen were acquired. COMPARISON: None. FINDINGS: Surgical changes and devices: None. Chest: Lungs are clear. Heart size is normal. No pleural effusions. No pneumoperitoneum. Abdomen: Bowel gas pattern is normal. Stool burden is normal. No suspicious calcifications. Visualized solid organ contours appear normal. Bones: No suspicious bony lesions. Surgical changes in the lumbar spine from L2 through L5. Right hip joint degeneration. IMPRESSION: No significantly increased stool burden. No acute process in the chest or abdomen. Dictated by: Chelsey Potts M.D. on 01/29/2024 at 23:04 Approved by: Chelsey Potts M.D. on 01/29/2024 at 23:06
[2024-01-29 23:04] VITALS: O2SAT 95
[2024-01-29 23:05] VITALS: BP 177/77; PULSE 71; RESP 17; O2SAT 96
[2024-01-29 23:14] LABS: Add Manual Diff / Slide Review NO; Basophils Absolute Auto 100 /uL (0-100); Basophils Percent Auto 1.8 % (0-2); Eosinophils Absolute Auto 200 /uL (0-450); Eosinophils Percent Auto 4.2 % (2-4); Hematocrit 41.5 % (41-53); Hemoglobin 13.8 g/dL (13.5-17.5); Lymphocytes Absolute Auto 1200 /uL (1100-4500); Lymphocytes Percent Auto 19.7 % (25-40); Mean Corpuscular HGB Conc 33.4 % (30-36); Mean Corpuscular Hemoglobin 28.4 PG (26-34); Monocytes Absolute Auto 500 /uL (0-900); Monocytes Percent Auto 8.4 % (3-14); Neutrophils Absolute Auto 4000 /uL (1500-7000); Neutrophils Percent Auto 65.9 % (50-75); Platelet Count 207 X10^3/uL (150-400); Red Blood Cell Count 4.88 X10^6/uL (4.5-5.9); Red Cell Distribution Width 13.7 % (11.6-14.8)
[2024-01-29 23:15] LABS: INR 1.1 (0.9-1.3); Prothrombin Time 12.3 SECONDS (9.4-12.5)
[2024-01-29 23:18] LABS: PTT Partial Thromboplastin Tim 42 SECONDS (25.1-36.5)
[2024-01-29 23:19] LABS: Alanine Aminotransferase 45 IU/L (<50); Albumin 4.3 g/dL (3.5-5.0); Albumin Globulin Ratio 1.4 (1.0-2.8); Alkaline Phosphatase 87 U/L (38-126); Aspartate Aminotransferase 59 IU/L (17-59); Bilirubin Total 0.4 mg/dL (0.2-1.3); Blood Urea Nitrogen 20 mg/dL (9-20); Calcium 9.2 mg/dL (8.4-10.2); Carbon Dioxide 27 mmol/L (22-32); Chloride 101 mmol/L (98-107); Estimated Glomerular Filt Rate > 60 mL/min (>60); Glucose 382 mg/dL (80-110); HEMOLYSIS < 15 (0-50); Potassium 4.6 mmol/L (3.4-5.1); Sodium 135 mmol/L (137-145); Total Protein 7.3 g/dL (6.3-8.2)
[2024-01-29 23:30] VITALS: BP 147/68; PULSE 62; RESP 14; O2SAT 95
--- NOTE | 2024-01-29 23:43 | ED.ABDPAIN ---
HPI - Abdominal Pain General Chief Complaint: Abdominal Pain Stated Complaint: pain, hemorroid sx on 01/18 Time Seen by Provider: 01/29/24 23:43 Source: patient Mode of arrival: Ambulatory History of Present Illness HPI narrative: 73-year-old male with history of diabetes, status post recent hemorrhoidectomy surgery Dr. Kiran on 01/19/2024, increasing perirectal pain, denies fevers or chills. Has some blood with bowel movements, stool of small caliber taking oral [id number] stool softener postoperatively as directed. Denies anterior abdominal discomfort. Related Data Previous Rx's Medication Instructions Recorded Contour Test Strips #100 ea 12/25/19 fluticasone propionate 50 1 spray intranasal DAILY PRN nasal 11/18/22 mcg/actuation nasal congestion #16 grams spray,suspension (Flonase Allergy Relief) enalapril maleate 20 mg tablet 20 mg PO BID #180 tabs 12/31/22 gabapentin 600 mg tablet 600 mg PO .5XDAILY #14 tabs 02/26/23 clobetasol 0.05 % lotion 1 applic topical BID #118 mL 06/11/23 acetaminophen 325 mg capsule 650 mg (2 x 325 mg) PO QID PRN 12/03/23 (Tylenol) pain #60 caps atorvastatin 10 mg tablet 10 mg PO ONCE PM #90 tabs 01/04/24 amlodipine 5 mg tablet 5 mg PO DAILY #90 tabs 01/06/24 glipizide 5 mg tablet 5 mg PO DAILY #90 tabs 01/06/24 hydrochlorothiazide 25 mg tablet 25 mg PO DAILY #90 tabs 01/06/24 metformin 500 mg tablet,extended 1,000 mg (2 x 500 mg) PO QPM #180 01/06/24 release 24 hr tabs tacrolimus 0.1 % topical ointment 1 applic topical BID #60 grams 01/06/24 tamsulosin 0.4 mg capsule 0.4 mg PO DAILY #90 caps 01/06/24 celecoxib 200 mg capsule (Celebrex) 200 mg PO BID #30 caps 01/19/24 docusate sodium 100 mg capsule 100 mg PO BID #30 caps 01/19/24 (Colace) oxycodone 5 mg tablet 5 mg PO Q6H PRN pain #40 tabs 01/19/24 polyethylene glycol 3350 17 17 g PO DAILY #238 grams 01/19/24 gram/dose oral powder (Miralax) wheat dextrin 3 gram/3.8 gram oral 3 g PO BID #144 grams 01/19/24 powder (Benefiber Sugar Free (dextrin)) disabled parking #1 ea 01/27/24 clindamycin HCl 300 mg capsule 300 mg PO Q6H 7 days #28 caps 01/30/24 Allergies Allergy/AdvReac Type Severity Reaction Status Date / Time Sulfa (Sulfonamide Allergy Severe BLISTER, Verified 01/29/24 22:31 Antibiotics) skin [SULFA (SULFONAMIDE comes off ANTIBIOTICS)] my legs latex [LATEX] Allergy Mild SKIN Verified 01/29/24 22:31 IRRITATION amoxicillin [AMOXICILLIN] AdvReac Severe Makes my Verified 01/29/24 22:31 skin crawl clavulanic acid AdvReac Severe AUGMENTIN/V Verified 01/29/24 22:31 [CLAVULANIC ACID] OMITING Penicillins [PENICILLINS] AdvReac Severe NAUSEA/VOMI Verified 01/29/24 22:31 TING ciprofloxacin [CIPROFLOXACIN] AdvReac Intermediate MADE PT Verified 01/29/24 22:31 FEEL RUMMY/NAUSEA erythromycin base AdvReac Intermediate SKIN Verified 01/29/24 22:31 [ERYTHROMYCIN BASE] CRAWLING Patient History Medical History (Updated 01/30/24 @ 01:53 by Krish Salomon MD) Internal hemorrhoids History of COV-19 Peripheral neuropathy Spinal stenosis COPD (chronic obstructive pulmonary disease) Lumbar disc herniation with radiculopathy Anxiety Degenerative arthritis of lumbar spine Inflamed internal hemorrhoid (02/2018) BPH (benign prostatic hyperplasia) GERD (gastroesophageal reflux disease) Controlled type 2 diabetes mellitus without complication (04/30/16) Tear of rotator cuff (09/19/14) Essential hypertension Surgical History (Updated 01/30/24 @ 01:53 by Krish Salomon MD) Hx of colonoscopy (12/03/23) S/p bilateral blepharoplasty (11/04/23) S/p bilateral blepharoplasty (03/22/23) History of lumbar spinal fusion (06/20/21) History of lumbar fusion (02/01/19) Hx of microdiscectomy (07/01/18) Hx of hand surgery (~2004) Status post epidural steroid injection H/O colonoscopy (07/08/15) History of elbow surgery H/O sinus surgery (2003) History of sebaceous cyst (2000) Hx of inguinal hernia surgery (1996) Status post laminectomy Family History Father NH (myocardial infarction) Grandmother Diabetes mellitus Mother Lymphoma Grandfather Colon cancer Sister Bladder cancer Social History marital status: details: Pt. lives with adult son and granddaughter household members: family lives independently: Yes occupational status: employed Smoking Status: Former smoker alcohol intake: current substance use type: does not use Smoking Status: Former smoker alcohol intake frequency: holidays/special occasions only Alcohol type: beer Substance Use Type: does not use Exam Narrative Exam Narrative: GENERAL: Well-developed patient, in mild distress. HEAD: Atraumatic. Normocephalic. EYES: Pupils equal round and reactive. Extraocular motions intact. No scleral icterus. No injection or drainage. ENT: Nose without bleeding, purulent drainage. Throat without erythema, tonsillar hypertrophy or exudate. Airway patent. NECK: Trachea midline. Non tender CARDIOVASCULAR: Regular rate and rhythm without murmurs, gallops, or rubs. RESPIRATORY: Clear to auscultation. Breath sounds equal bilaterally. No wheezes, rales, or rhonchi. GASTROINTESTINAL: Abdomen soft, non-tender, nondistended. EXTREMITIES: No edema or joint tenderness. BACK: Nontender without deformity or crepitance. No flank tenderness. NEURO: AOx3. SKIN: No rash or erythema of visible areas Initial Vital Signs Initial Vital Signs: Vital Signs Temperature 97.2 F L 01/29/24 22:31 Pulse Rate 82 01/29/24 22:31 Respiratory Rate 17 01/29/24 22:31 Blood Pressure 170/79 H 01/29/24 22:31 Pulse Oximetry 98 01/29/24 22:31 Oxygen Delivery Method Room Air 01/29/24 22:31 Course Orders Ordered: ED Orders 01/29/24 23:12 Type and Screen Stat 01/30/24 00:19 CT abdomen pelvis w con Stat 01/30/24 00:25 Blood Culture Stat 01/30/24 00:32 Lactate (Lactic Acid) Stat Discontinued Medications Clindamycin HCl (Clindamycin 150 Mg Capsule) 300 mg PO NOW ONE Stop: 01/30/24 02:03 Last Admin: 01/30/24 02:19 Dose: 300 mg Documented By: ROSLYN Sodium Chloride (Normal Saline 0.9%) 1,000 mls @ 1,000 mls/hr IV BOLUS ONE Stop: 01/30/24 01:19 Last Infusion: 01/30/24 01:42 Dose: Infused Documented By: Admin: 01/30/24 00:55 Dose: 1,000 mls/hr Documented By: ELVIA Vancomycin HCl 1,750 mg/ (Sodium Chloride) 500 mls @ 250 mls/hr IV NOW ONE Stop: 01/30/24 00:22 Last Admin: 01/30/24 00:41 Dose: Not Given Documented By: ELVIA Ciprofloxacin (Cipro) 400 mg in 200 mls @ 200 mls/hr IV NOW ONE Stop: 01/30/24 01:22 Last Admin: 01/30/24 02:04 Dose: Not Given Documented By: Metronidazole (Flagyl) 500 mg in 100 mls @ 100 mls/hr IV NOW ONE Stop: 01/30/24 01:23 Last Infusion: 01/30/24 01:58 Dose: Infused Documented By: Admin: 01/30/24 00:55 Dose: 100 mls/hr Documented By: ELVIA Vancomycin HCl/Dextrose (Vancomycin) 1,500 mg in 300 mls @ 200 mls/hr IV NOW ONE Stop: 01/30/24 02:11 Last Admin: 01/30/24 02:04 Dose: Not Given Documented By: Insulin Human Regular (Insulin Regular 100 Unit/Ml 3 Ml Vial) 5 unit SUBCUT NOW ONE Stop: 01/30/24 00:30 Last Admin: 01/30/24 00:57 Dose: 5 unit Documented By: ELVIA Co-signed By: Ondansetron HCl (Ondansetron 4 Mg Odt) 4 mg SL NOW PRN PRN Reason: Nausea And Vomiting Ondansetron HCl (Ondansetron 4 Mg/2 Ml Inj) 4 mg IV NOW PRN PRN Reason: Nausea And Vomiting Vital Signs Vital signs: Vital Signs - 8 hr 01/30/24 00:30 01/30/24 00:30 01/30/24 00:51 Pulse Rate 68 Respiratory Rate 16 Blood Pressure 149/65 H 124/58 L Pulse Oximetry 95 01/30/24 00:51 01/30/24 01:00 01/30/24 01:01 Pulse Rate 70 73 71 Respiratory Rate 17 23 20 Blood Pressure Pulse Oximetry 95 95 95 01/30/24 01:01 01/30/24 01:30 01/30/24 01:30 Pulse Rate 74 Respiratory Rate 16 Blood Pressure 135/58 L 126/59 L Pulse Oximetry 93 01/30/24 02:00 01/30/24 02:00 Pulse Rate 65 Respiratory Rate 16 Blood Pressure 147/65 H Pulse Oximetry 96 MDM - Abdominal Pain Lab Data Attestation: I reviewed the patient's lab results. 01/29/24 22:55 01/29/24 22:55 Labs: Lab Results 01/29/24 01/29/24 01/30/24 Range/Units 22:55 23:12 00:32 WBC 6.0 (4.5-11.0) X10^3/uL RBC 4.88 (4.5-5.9) X10^6/uL Hgb 13.8 (13.5-17.5) g/dL Hct 41.5 (41-53) % MCV 85.0 (80-100) fL MCH 28.4 (26-34) PG MCHC 33.4 (30-36) % RDW 13.7 (11.6-14.8) % Plt Count 207 (150-400) X10^3/uL Neut % (Auto) 65.9 (50-75) % Lymph % (Auto) 19.7 L (25-40) % [place] % (Auto) 8.4 (3-14) % Eos % (Auto) 4.2 H (2-4) % Baso % (Auto) 1.8 (0-2) % Neut # (Auto) 4000 (8691-8535) /uL Lymph # (Auto) 1200 (4674-9336) /uL [place] # (Auto) 500 (0-900) /uL Eos # (Auto) 200 (0-450) /uL Baso # (Auto) 100 (0-100) /uL PT 12.3 (9.4-12.5) SECONDS INR 1.1 (0.9-1.3) APTT 42 H (25.1-36.5) SECONDS Sodium 135 L (137-145) mmol/L Potassium 4.6 (3.4-5.1) mmol/L Chloride 101 (98-107) mmol/L Carbon Dioxide 27 (22-32) mmol/L BUN 20 (9-20) mg/dL Creatinine 0.87 (0.66-1.25) mg/dL Estimated GFR > 60 (>60) mL/min BUN/Creatinine Ratio 23.0 H (6-22) Glucose 382 H (80-110) mg/dL Lactate 0.8 (0.7-2.1) mmol/L Calcium 9.2 (8.4-10.2) mg/dL Total Bilirubin 0.4 (0.2-1.3) mg/dL AST 59 (17-59) IU/L ALT 45 (<50) IU/L Alkaline Phosphatase 87 (38-126) U/L Total Protein 7.3 (6.3-8.2) g/dL Albumin 4.3 (3.5-5.0) g/dL Globulin 3.0 (1.7-4.1) g/dL Albumin/Globulin Ratio 1.4 (1.0-2.8) Blood Type O Positive Antibody Screen Negative Point of care testing: Point of Care Testing Glucose POC 227 Urine Dip Bedside Urine Glucose Negative Bedside Urine Bilirubin - Negative Bedside Urine Ketone - Negative Urine Specific [place] 1.000 Bedside Urine Occult Blood - Negative Bedside Urine pH 7.5 Bedside Urine Protein - Negative Bedside Urine Urobilinogen - Negative Bedside Urine Nitrite - Negative Bedside Urine Leukocytes - Negative Esterase Imaging Data Abdominal x-ray: Radiologist's Impression: [address] [id number] XRay Report Signed Patient: Ryland Quevedo MR#: [id number] : 1950 Acct:[id number] Age/Sex: 73 / M Date of Service: 01/29/24 Loc: ED Accession Number: [id number] Procedure: XR acute abdomen series Ordering Provider: Krish Salomon MD PROCEDURE: XR ACUTE ABDOMEN SERIES INDICATIONS: recent surgery, constipation, rectal pain TECHNIQUE: One view chest and two views of the abdomen were acquired. COMPARISON: None. FINDINGS: Surgical changes and devices: None. Chest: Lungs are clear. Heart size is normal. No pleural effusions. No pneumoperitoneum. Abdomen: Bowel gas pattern is normal. Stool burden is normal. No suspicious calcifications. Visualized solid organ contours appear normal. Bones: No suspicious bony lesions. Surgical changes in the lumbar spine from L2 through L5. Right hip joint degeneration. IMPRESSION: No significantly increased stool burden. No acute process in the chest or abdomen. Dictated by: Chelsey Potts M.D. on 01/29/2024 at 23:04 Approved by: Chelsey Potts M.D. on 01/29/2024 at 23:06 CT scan - abdomen/pelvis: Radiologist's Impression: [place] [address] CT Scan Report Signed Patient: Ryland Quevedo MR#: [id number] : 1950 Acct:[id number] Age/Sex: 73 / M Date of Service: 01/30/24 Loc: ED Accession Number: [id number] Procedure: CT abdomen pelvis w con Ordering Provider: Krish Salomon MD PROCEDURE: CT ABDOMEN PELVIS W CON INDICATIONS: hemorroid surgery 01/18, buttock erythema R>L TECHNIQUE: After the administration of intravenous contrast, axial sections acquired from the lung bases to the pubic symphysis. Coronal and sagittal reformats were performed. For radiation dose reduction, the following was used: automated exposure control, adjustment of mA and/or kV according to patient size. COMPARISON: None. FINDINGS: Image quality: Diagnostic. Lower Chest: Mitral annular repair or calcification. Clear lung bases. Normal size heart. ABDOMEN: Liver: Moderate hepatic steatosis. Mild hepatomegaly. Gallbladder: No wall thickening or calcified stones. Biliary ducts: No biliary dilation. Pancreas: No ductal dilation. Spleen: Size is within normal limits. Adrenal Glands: No adrenal nodules. Kidneys and Ureters: Symmetric enhancement. No small renal cortical cysts. hydronephrosis. No hydroureter. Punctate nonobstructing left lower pole calculus. Stomach and Bowel: Decompressed stomach and small bowel loops. Normal appendix. Increased quantity of solid stool in the proximal colon. Distal colon and rectum are decompressed. Mild hyperdensity along the dorsal aspect of the canal. No associated fluid collection or significant soft tissue stranding. Peritoneum: No abnormal intraperitoneal fluid. No free air. Ventral Wall: No significant ventral hernia. Abdominal Nodes: No retroperitoneal or mesenteric adenopathy. Vessels: The abdominal aorta, IVC, and portal vein are of normal caliber. PELVIS: Pelvic Organs: Moderate prostatomegaly. Bladder:. Pelvic Nodes: No enlarged lymph nodes. Miscellaneous: No inguinal hernias are seen. Bones: Lumbar fusion from L2 through L5. Straightening of the lumbar lordosis. No suspicious bone lesions. IMPRESSION: Hyperdense material in the hemorrhoid excision bed without adjacent inflammation or fluid collection to suggest complication or abscess. No evidence of bowel obstruction. Hepatic steatosis. Dictated by: Chelsey Potts M.D. on 01/30/2024 at 1:07 Approved by: Chelsey Potts M.D. on 01/30/2024 at 1:13 MDM Narrative Medical decision making narrative: 73-year-old male with history of diabetes, postop day 10 from hemorrhoidectomy, with increasing perirectal pain, some bleeding with bowel movements, denies any recent instrumentation postoperatively, afebrile, sirs screen negative. On exam has small hemorrhoid externally that is nonthrombosed, erythema over much of his right buttock and some toward the left buttock, without crepitance or induration or fluctuance or bullae. White blood cell count not elevated, lactate pending. Glucose 300s noted, history of diabetes, normal anion gap, not consistent with DKA at this time. IV fluid bolus. History of penicillin allergy. Blood cultures sent, IV vancomycin, IV ciprofloxacin, IV metronidazole. SQ regular insulin [address] abdomen and pelvis with IV contrast imaging requested. Keep NPO. CT abdomen and pelvis imaging showed possible hyperdense material in the surgical bed area, no inflammation or fluid collection. Case discussed with surgery Dr. Saldivar, who recommends probably not doing a digital rectal exam for now in the surgical area. Discharge patient on oral antibiotics cephalexin for discharge. He can see patient in follow up early next week. Critical Care Time Critical Care Time Critical Care Time: Yes Total Critical Care Time: 35 Attestation: The high probability of a clinically significant, sudden or life threatening deterioration of the [GI, perineal, dermatologic, endocrine] system(s) required my full and direct attention, intervention and personal management. The aggregate critical care time was [35] minutes. This time is in addition to time spent performing reported procedures but includes the following: [x] Data Review and interpretation [x] Patient assessment and monitoring of vital signs [x] Documentation [x] Medication orders and management Discharge Plan Departure Patient Disposition: Home Clinical Impression: Cellulitis, Status post hemorrhoidectomy, Hyperglycemia, History of diabetes mellitus Instructions: DI for Cellulitis -- Adult Activity Restrictions/Additional Instructions: Recent hemorrhoidectomy surgery 10 days ago, with increasing rectal area discomfort, on exam some redness to the right and to the left buttock cheeks. Elevated glucose, no acidosis at this time, IV fluids and subcutaneous insulin given, glucose did come down some. Continue to take her diabetes medication as directed. Blood test inflammatory/infectious markers were not elevated. CT imaging of the abdomen and pelvis including buttock and perineal area showed no fluid collection or abscess, and also no particular stranding or inflammatory changes. There was some mention of density in the postoperative area, he did not think there is any foreign body present, good not putting things up into your rectum. Case discussed with your surgeon who was on-call Dr. Saldivar, who discouraged digital rectal exam for now, advised some oral antibiotics for cellulitis, can follow up with him early next week in clinic. Discharge on oral antibiotics. History of penicillin allergy noted. We will use oral clindamycin antibiotic for now. Follow up with Dr. Saldivar as planned early next week, call his office Wednesday for appointment. Prescriptions: New clindamycin HCl 300 mg capsule 300 mg PO Q6H 7 Days Qty: 28 0RF No Action enalapril maleate 20 mg tablet 20 mg PO BID Qty: 180 3RF (DME) Contour Test Strips 0 .Route .MEDSUPPLY Qty: 100 0RF Rx Instructions: Use daily as directed to monitor blood glucose. gabapentin 600 mg tablet 600 mg PO .5XDAILY Qty: 14 0RF clobetasol 0.05 % lotion 1 applic topical BID Qty: 118 1RF atorvastatin 10 mg tablet 10 mg PO ONCE PM Qty: 90 3RF amlodipine 5 mg tablet 5 mg PO DAILY Qty: 90 3RF tamsulosin 0.4 mg capsule 0.4 mg PO DAILY Qty: 90 3RF glipizide 5 mg tablet 5 mg PO DAILY Qty: 90 3RF tacrolimus 0.1 % ointment 1 applic topical BID Qty: 60 0RF Rx Instructions: apply small amount to area for two weeks metformin 500 mg tablet extended release 24 hr 1,000 mg PO QPM Qty: 180 3RF hydrochlorothiazide 25 mg tablet 25 mg PO DAILY Qty: 90 3RF (DME) disabled parking See Rx Instructions .ROUTE .MEDSUPPLY Qty: 1 0RF Rx Instructions: I find this patient to be medically disabled and qualified for Disabled Parking as indicated, and signed, on the Accompanying Disabled Parking Application for individuals. fluticasone propionate [Flonase Allergy Relief] 50 mcg/actuation spray,suspension 1 spray intranasal DAILY PRN (Reason: nasal congestion) Qty: 16 0RF Rx Instructions: administer into each nostril celecoxib [Celebrex] 200 mg capsule 200 mg PO BID Qty: 30 0RF docusate sodium [Colace] 100 mg capsule 100 mg PO BID Qty: 30 0RF Benefiber Sugar Free (dextrin) 3 gram/3.8 gram powder 3 g PO BID Qty: 144 0RF Rx Instructions: mix into at least 4 oz water or juice before administering polyethylene glycol 3350 [Miralax] 17 gram/dose powder 17 g PO DAILY Qty: 238 0RF oxycodone 5 mg tablet 5 mg PO Q6H PRN (Reason: pain) Qty: 40 0RF acetaminophen [Tylenol] 325 mg capsule 650 mg PO QID PRN (Reason: pain) Qty: 60 0RF Referrals: Cas Marin MD [Primary Care Provider] - Abner Saldivar MD [Physician] - Stand Alone Forms: Patient Portal/API
[2024-01-29 23:55] VITALS: BP 136/63; PULSE 75; RESP 25; O2SAT 94
[2024-01-30] VITALS (7 sets, daily range): BP systolic 124–149; BP diastolic 56–65; PULSE 65–74; RESP 16–23; O2SAT 93–96
--- NOTE | 2024-01-30 00:19 | DI.CT.S_ITS ---
PROCEDURE: CT ABDOMEN PELVIS W CON INDICATIONS: hemorroid surgery 01/18, buttock erythema R>L TECHNIQUE: After the administration of intravenous contrast, axial sections acquired from the lung bases to the pubic symphysis. Coronal and sagittal reformats were performed. For radiation dose reduction, the following was used: automated exposure control, adjustment of mA and/or kV according to patient size. COMPARISON: None. FINDINGS: Image quality: Diagnostic. Lower Chest: Mitral annular repair or calcification. Clear lung bases. Normal size heart. ABDOMEN: Liver: Moderate hepatic steatosis. Mild hepatomegaly. Gallbladder: No wall thickening or calcified stones. Biliary ducts: No biliary dilation. Pancreas: No ductal dilation. Spleen: Size is within normal limits. Adrenal Glands: No adrenal nodules. Kidneys and Ureters: Symmetric enhancement. No small renal cortical cysts. hydronephrosis. No hydroureter. Punctate nonobstructing left lower pole calculus. Stomach and Bowel: Decompressed stomach and small bowel loops. Normal appendix. Increased quantity of solid stool in the proximal colon. Distal colon and rectum are decompressed. Mild hyperdensity along the dorsal aspect of the canal. No associated fluid collection or significant soft tissue stranding. Peritoneum: No abnormal intraperitoneal fluid. No free air. Ventral Wall: No significant ventral hernia. Abdominal Nodes: No retroperitoneal or mesenteric adenopathy. Vessels: The abdominal aorta, IVC, and portal vein are of normal caliber. PELVIS: Pelvic Organs: Moderate prostatomegaly. Bladder:. Pelvic Nodes: No enlarged lymph nodes. Miscellaneous: No inguinal hernias are seen. Bones: Lumbar fusion from L2 through L5. Straightening of the lumbar lordosis. No suspicious bone lesions. IMPRESSION: Hyperdense material in the hemorrhoid excision bed without adjacent inflammation or fluid collection to suggest complication or abscess. No evidence of bowel obstruction. Hepatic steatosis. Dictated by: Chelsey Potts M.D. on 01/30/2024 at 1:07 Approved by: Chelsey Potts M.D. on 01/30/2024 at 1:13
[2024-01-30 00:55] LABS: Lactate (Lactic Acid) 0.8 mmol/L (0.7-2.1)
[2024-01-30] MEDS: metroNIDAZOLE 500 MG/100 ML PIGGYBACK 100 MG IV (00:55)
[2024-01-30] MEDS: SODIUM CHLORIDE 0.9% 1,000 ML 1000 ML IV (00:55)
[2024-01-30] MEDS: INSULIN REGULAR 100 UNIT/ML 3 ML VIAL SUBCUT (00:57)
[2024-01-30] MEDS: CLINDAMYCIN 150 MG CAPSULE 300 MG PO (02:19)
== END 2024-01-30 02:24 | disposition home or self-care (01) ==
PROVIDERS: Emergency Provider Emergency Medicine; PCP Family Medicine
DX: L03.317 Cellulitis of buttock (principal); E11.65 Type 2 diabetes mellitus with hyperglycemia; Z79.899 Other long term (current) drug therapy; Z98.890 Other specified postprocedural states
CPT/HCPCS: 36415; 74022; 74177; 80053; 81003; 82962; 83605; 85025; 85610; 85730; 86850; 86900; 86901; 87040; 96365; 96372; 99284; Q9967

== ENCOUNTER → 2024-02-03 08:46 | Outpatient (CLI) | payer MEDICARE, OTHER, SELFPAY ==
[2023-07-02 13:24] VITALS: BMI 31.9
--- NOTE | 2024-02-03 14:47 | DIAB.FU ---
Follow-up Diabetes Education Assessment Name: Ryland Quevedo Date: 02/03/24 Time: [id number] Dx: Type II Diabetes Ryland presents for Dm follow-up. Reports continued difficulty with diet changes. States he is still eating high CHO, high Na food options. hgA1c at its highest with 10.8% in December. Likely needs additional diabetes medication. Has increased Metformin with PCP. Taking Glipizide as rx'd. Has h/o GI upset and diarrhea with higher doses of Metformin. Eating a lot of canned soup +/- crackers recently. Has noticed increase in urination at night, tough time sleeping. Urinating q 20-60 mins. Stress at home with grand daughter, behavioral concerns reported. Wants a place on his phone to add appts and medications. Started oral prednisone one week ago. Self-Monitoring Blood Glucose: None recently Diabetes Medications: 1000mg Metformin XR 5mg Glipizide Pertinent Labs: HgA1c: 12/2023 10.9% 10/2023: 9.8% 05/2023: 7.5% 12/2022: 9.3% 09/2022: 9.3% 07/2022: 8.5% 01/2022 7.6% 07/2021 6.6% 01/2021 6.8% 02/2020 6.5% 04/2019 6.2% Past Medical History: (Last Updated 01/27/24 @ 13:46 by Chandni Del Real PA-C) Anxiety R/T inability to work; anxious to return BPH (benign prostatic hyperplasia) Controlled type 2 diabetes mellitus without complication (04/30/16) COPD (chronic obstructive pulmonary disease) Degenerative arthritis of lumbar spine Essential hypertension GERD (gastroesophageal reflux disease) History of COVID-19 05/04, 10/06 Inflamed internal hemorrhoid (02/2018) Internal hemorrhoids Lumbar disc herniation with radiculopathy Peripheral neuropathy Spinal stenosis Tear of rotator cuff (09/19/14) Intervention: This participant was very receptive. Provided appropriate educational handouts. Discussed the following topics: Recent lab results and concern for dm management Medication management: potential for additiona dm medications Review of general nutrition recommendations and current intake Encouraged low CHo and low Na diet, especially until he can discuss a plan with PCP Physical activity plan and impact on blood sugars Risk of complications with rising hgA1c Created SMART goals for patient self-care and success. Goals: Bring sandwich to lunch- not met Check FBG daily - not met Aim for low CHO diet, as discussed- new Try low Na soup- new Focus on protein and veggies - new Check FBG - new Follow-up: DONNA JULIEN follow-up in 2-3 weeks Aleah Farah RDN, ANAYA Certified Diabetes Care and Pta P: [phone] Thank you for this referral
== END ==
PROVIDERS: PCP Family Medicine; Referring Provider Family Medicine
DX: E11.9 Type 2 diabetes mellitus without complications (principal); Z79.84 Long term (current) use of oral hypoglycemic drugs; Z71.3 Dietary counseling and surveillance
CPT/HCPCS: G0108

== ENCOUNTER → 2024-03-01 06:51 | Outpatient (CLI) | payer MEDICARE, OTHER, SELFPAY ==
[2023-07-02 13:24] VITALS: BMI 31.9
[2024-03-01 08:34] LABS: Hemoglobin A1C% w Est Avg Glu 10.7 % (4.0-6.0)
== END ==
PROVIDERS: PCP Family Medicine; Referring Provider Family Medicine; Visit Provider Family Medicine
DX: E11.9 Type 2 diabetes mellitus without complications (principal)
CPT/HCPCS: 36415; 83036

== ENCOUNTER → 2024-03-15 08:53 | Outpatient (CLI) | payer MEDICARE, OTHER, SELFPAY ==
[2023-07-02 13:24] VITALS: BMI 31.9
--- NOTE | 2024-03-15 09:31 | DIAB.MNTFU ---
Follow-up Diabetes Medical Nutrition Therapy Assessment Name: Ryland Quevedo Date: 03/15/24 Time: 910-10a Dx: Type II Diabetes Ryland presents for DM follow-up. Started Jardiance 10mg. States it was $500 for three months, but he feels it is worth the rivera. Started Jardiance 2-3 weeks ago. Still having freq urination q 45 mins after 3 hours of sleep at night. Being more conscious of fluid intake to avoid cramps. Not eating breakfast lately, have not been hungry. Endorses some wt loss. Loves salt and feels it is very difficulty to reduce. Brought list of foods he enjoys to help make a food plan. Diet recall indicates high Na intake. Frequent eating out and processed foods. Historically difficult for him to make diet changes. Diet Recall: B: none or eggs, hashbrowns +/- toast, villanueva L: burger large hubbard with diet soda D: 5 hot dogs +/- veggies water 1/2L diet soda 1L diet juice 16oz Anthropometrics: Ht: 68 Wt: 198# 03/02/24 Physical Activity: No program Self-Monitoring Blood Glucose: None lately Diabetes Medications: 1000mg Metformin XR 5mg Glipizide 10mg Jardiance Pertinent Labs: HgA1c: 02/2024 10.7% 12/2023 10.9% 10/2023: 9.8% 05/2023: 7.5% 12/2022: 9.3% 09/2022: 9.3% 07/2022: 8.5% 01/2022 7.6% 07/2021 6.6% 01/2021 6.8% 02/2020 6.5% 04/2019 6.2% Past Medical History: (Last Updated 01/27/24 @ 13:46 by Chandni Del Real PA-C) Anxiety R/T inability to work; anxious to return BPH (benign prostatic hyperplasia) Controlled type 2 diabetes mellitus without complication (04/30/16) COPD (chronic obstructive pulmonary disease) Degenerative arthritis of lumbar spine Essential hypertension GERD (gastroesophageal reflux disease) History of COVID-19 05/04, 10/06 Inflamed internal hemorrhoid (02/2018) Internal hemorrhoids Lumbar disc herniation with radiculopathy Peripheral neuropathy Spinal stenosis Tear of rotator cuff (09/19/14) Nutrition Rx: Carbohydrates: Meal: 45g Snack:15-30g Nutrition Diagnosis: Excessive CHO intake r/t eating out portions aeb hgA1c 10.7% and diet recall Excessive Na intake r/t stage of change contemplative aeb eating out portions and frequency Intervention: This participant was very receptive. Provided appropriate educational handouts. Discussed the following topics: Fluid recs with Jardiance Impact of Na and sat fat on heart health Reduced CHO when eating out Meal planning Importance of SMBG for DM evaluation and meds Created SMART goals for patient self-care and success. Goals: Aim for low CHO diet, as discussed- not met Try low Na soup- not met Focus on protein and veggies - not met Check FBG - not met Restart checking FBG- new Reduce salt intake - new 1L water per day min in addition to other beverages- new Contact PCP office about stress test referral- new When eating out choose small hubbard- new Follow-up: DONNA JULIEN follow-up in 3-4 weeks Aleah Farah RDN, ANAYA Certified Diabetes Care and Technician [employer] Maintenance P: [phone] Thank you for this referral
== END ==
LOC: DIET 08:54
PROVIDERS: PCP Family Medicine; Referring Provider Family Medicine
DX: E11.9 Type 2 diabetes mellitus without complications (principal); Z79.84 Long term (current) use of oral hypoglycemic drugs; Z71.3 Dietary counseling and surveillance
CPT/HCPCS: 97803

== ENCOUNTER → 2024-04-07 08:55 | Outpatient (CLI) | payer MEDICARE, OTHER, SELFPAY ==
[2023-07-02 13:24] VITALS: BMI 31.9
--- NOTE | 2024-04-07 10:05 | DIAB.FU ---
Follow-up Diabetes Education Assessment Name: Ryland Quevedo Dx: Type II Diabetes Date: 04/07/24 Time: [id number] Dx: Type II Diabetes Ryland presents for DM follow-up. Continues Jardiance 10mg. Drinking 1-2L water + other sf beverages. Does not know who to contact about his stress test. Has been cutting back on salt intake and using a salt substitute. Reports son is not helpful in making lifestyle changes. Has a hard time choosing veggies at meals. Still eating fast food 5 days per week for lunch during work, however is choosing small hubbard portion now. Would like to start eating healthier, has h/o wt loss and reduced Dm medications per report. Open to CGM sample, does report he generally does not like things sticking to his skin but feels CGM is worth a try. Reports some social stress at home with family dynamics and helping to raise granddaughter. Recognizes his own barrier to stage of change. Feels unsure why he cannot implement diet changes. We have discussed eating out a number of times. This has been a challenge for him. Feels he is lacking support in general and especially at home to make changes. This is especially been difficult since is not longer here to cook for him, she passed 5 years ago per report. Anthropometrics: Ht: 68 Wt: 196.8# today 198# 03/02/24 Physical Activity: No program Self-Monitoring Blood Glucose: Most FBG in the 160s, but not a true fasting most mornings with fasting only 5-6 hours. No log book for review. Diabetes Medications: 1000mg Metformin XR 5mg Glipizide 10mg Jardiance Pertinent Labs: HgA1c: 02/2024 10.7% 12/2023 10.9% 10/2023: 9.8% 05/2023: 7.5% 12/2022: 9.3% 09/2022: 9.3% 07/2022: 8.5% 01/2022 7.6% 07/2021 6.6% 01/2021 6.8% 02/2020 6.5% 04/2019 6.2% Past Medical History: (Last Updated 01/27/24 @ 13:46 by Chandni Del Real PA-C) Anxiety R/T inability to work; anxious to return BPH (benign prostatic hyperplasia) Controlled type 2 diabetes mellitus without complication (04/30/16) COPD (chronic obstructive pulmonary disease) Degenerative arthritis of lumbar spine Essential hypertension GERD (gastroesophageal reflux disease) History of COVID-19 05/04, 10/06 Inflamed internal hemorrhoid (02/2018) Internal hemorrhoids Lumbar disc herniation with radiculopathy Peripheral neuropathy Spinal stenosis Tear of rotator cuff (09/19/14) Intervention: This participant was very receptive. Provided appropriate educational handouts. Discussed the following topics: Motivation for making changes Nutrition impact on BG h/o changes he has made Potential for CGM sample Fasting checks after 8 hours Messaged PCP team to inquire about who to call about stress test Created SMART goals for patient self-care and success. Goals: Restart checking FBG- met Reduce salt intake - met 1L water per day min in addition to other beverages- met Contact PCP office about stress test referral- met When eating out choose small hubbard- met Check FBG after 8 hours - new Try to bring lunch to work- new Follow-up: DONNA JULIEN follow-up in 3 weeks Aleah Farah RDN, ANAYA Certified Diabetes Care and Clinical Application Consultant P: [phone] Thank you for this referral
== END ==
PROVIDERS: PCP Family Medicine; Referring Provider Family Medicine
DX: E11.9 Type 2 diabetes mellitus without complications (principal); Z79.84 Long term (current) use of oral hypoglycemic drugs; Z71.3 Dietary counseling and surveillance
CPT/HCPCS: G0108

== ENCOUNTER → 2024-04-26 08:28 | Outpatient (CLI) | payer MEDICARE, OTHER, SELFPAY ==
[2023-07-02 13:24] VITALS: BMI 31.9
--- NOTE | 2024-04-26 08:36 | DIAB.MNTFU ---
Follow-up Diabetes Medical Nutrition Therapy Assessment Name: Ryland Quevedo Date: 04/26/24 Time: [id number] Dx: Type II Diabetes Ryland presents for DM follow-up. Continues Jardiance 10mg. Reporting leg cramps are severe right now. Endorses drinking plenty of water. Urine reported light in color indicating hydration. States adding salt sub (which is higher in potassium) seemed to help with cramps. Plans to see provider this week for further review. Continues with difficulty bringing lunch to work, resulting in high Na and CHO intake with fast food 5 days per week. Anthropometrics: Ht: 68 Wt: 196.8# last visit 04/07/24 198# 03/02/24 Physical Activity: No program Self-Monitoring Blood Glucose: Not always fasting a full 8 hours before checking BG. Recent FB, 225, 166, 161, 210, 173, 221 mg/dl. All above goal. Provided CGM sample today x 10 days. Diabetes Medications: 1000mg Metformin XR 5mg Glipizide 10mg Jardiance Pertinent Labs: HgA1c: 02/2024 10.7% 12/2023 10.9% 10/2023: 9.8% 05/2023: 7.5% 12/2022: 9.3% 09/2022: 9.3% 07/2022: 8.5% 01/2022 7.6% 07/2021 6.6% 01/2021 6.8% 02/2020 6.5% 04/2019 6.2% Past Medical History: (Last Updated 01/27/24 @ 13:46 by Chandni Del Real PA-C) Anxiety R/T inability to work; anxious to return BPH (benign prostatic hyperplasia) Controlled type 2 diabetes mellitus without complication (04/30/16) COPD (chronic obstructive pulmonary disease) Degenerative arthritis of lumbar spine Essential hypertension GERD (gastroesophageal reflux disease) History of COVID-19 05/04, 10/06 Inflamed internal hemorrhoid (02/2018) Internal hemorrhoids Lumbar disc herniation with radiculopathy Peripheral neuropathy Spinal stenosis Tear of rotator cuff (09/19/14) Nutrition Diagnosis: - Food and nutrition related knowledge deficit r/t needing more information regarding hydration and electrolytes aeb pt report Intervention: This participant was very receptive. Provided appropriate educational handouts. Discussed the following topics: Hydration and BG and Jardiance Evaluating hydration status with urine color Impact of fasting 8 hours on FBG value CGM Sample Education Reviewed CGM use and equipment Discussed when to check blood sugars using finger stick Reviewed high and low blood sugar signs/symptoms and treatment options Provided education for self-administration of CGM placement Educated patient on alarm settings Discussed equipment disposal Goals: Check FBG after 8 hours - in progress Try to bring lunch to work- not met Wear CGM x 10 days- new Follow-up: DONNA JULIEN follow-up in 3 weeks Aleah Farah RDN, ANAAY Certified Diabetes Care and [employer] Motor Operator P: [phone] Thank you for this referral
== END ==
PROVIDERS: PCP Family Medicine; Referring Provider Family Medicine
DX: E11.9 Type 2 diabetes mellitus without complications (principal); Z79.84 Long term (current) use of oral hypoglycemic drugs; Z71.3 Dietary counseling and surveillance
CPT/HCPCS: 97803

== ENCOUNTER → 2024-05-09 07:17 | Outpatient (CLI) | payer MEDICARE, OTHER, SELFPAY ==
[2023-07-02 13:24] VITALS: BMI 31.9
--- NOTE | 2024-05-09 07:18 | DI.NM.S_ITS ---
PROCEDURE: NM RAYMOND PERF SPECT R&S PHARM Rest and pharmacological stress myocardial perfusion SPECT with gated imaging and ejection fraction RADIOPHARMACEUTICAL: 27 mCi Tc-99m tetrafosmin IV at rest and 24.4 mCi Tc-99m tetrafosmin IV at peak effect of pharmacological stress. [id number] was performed. INDICATIONS: chest pain TECHNIQUE: Radiopharmaceutical was injected at peak stress test, and also at rest. SPECT images were obtained. SPECT myocardial perfusion images were displayed in short axis, horizontal long axis, and vertical long axis views. Gated images were reviewed using [employer] software. COMPARISON: None. CARDIAC STRESS: A pharmacologic stress test was performed under the supervision of an attending staff, using an infusion of lexiscan 0.4mg IV X1. Hemodynamic data: There is normal blood pressure and heart rate response to pharmacologic stress. Symptoms: The patient denied anginal chest pain. Aminophylline: none EKG: No diagnostic changes of ischemia; no ectopy. FINDINGS: Raw data: There is good myocardial uptake of radiotracer. No significant motion artifacts. Edta-dt-msclo ratio is 0.28 (normal is less than 0.38 for tetrafosmin tracer). Left ventricle function: Gated images demonstrate normal left ventricular wall thickening. No segmental wall motion abnormalities. No transient ischemic dilation; TID is 1.08 (normal less than 1.3). Left ventricle resting end diastolic volume is 90 mL. Left ventricle stress ejection fraction is 76%; normal range is above 45%. Myocardial perfusion: Mildly intense fixed inferior wall defect that resolves with prone imaging, suggesting diaphragmatic attenuation artifact. No ischemia and no infarction present. IMPRESSION: Low risk, normal pharm nuclear stress test from inducible ischemia standpoint. 1) Mildly intense fixed inferior wall defect that resolves with prone imaging, suggesting diaphragmatic attenuation artifact. No ischemia and no infarction present. 2) Normal left ventricular size, wall motion, and systolic function (EF post stress 70%). 3) No diagnostic ST changes with lexiscan. 4) No angina during the study. 5) No prior nuclear stress test available for comparison. Dictated by: Bharti Skinner MD on 05/10/2024 at 14:38 Approved by: Bharti Skinner MD on 05/10/2024 at 14:41
== END ==
LOC: NUCM 07:18
PROVIDERS: PCP Family Medicine; Referring Provider Family Medicine; Visit Provider Family Medicine
DX: R07.9 Chest pain, unspecified (principal)
CPT/HCPCS: 78452; 93017; A9502; J2785

== ENCOUNTER → 2024-05-18 08:41 | Outpatient (CLI) | payer MEDICARE, OTHER, SELFPAY ==
[2023-07-02 13:24] VITALS: BMI 31.9
--- NOTE | 2024-07-06 11:22 | DIAB.MNTFU ---
Follow-up Diabetes Medical Nutrition Therapy Assessment Name: Ryland Quevedo Date: 06/09/24 Time: 0-944z Dx: Type II Diabetes Ryland presents for DM follow-up. Continues Jardiance 10mg and worries about increasing dose due to cost concerns. Denies any changes to diet. States he is not sure why it is so difficult for him to bring lunch vs fast food. Wore CGM sample Anthropometrics: Ht: 68 Wt: 196.8# last visit 04/07/24 198# 03/02/24 Physical Activity: No program Self-Monitoring Blood Glucose: FBG always in the 200s and then each pc reading up to 200-400mg/dl. Almost half the time his BG is above 250mg/dl. Likely benefit from additional Dm medication, perhaps insulin. TIR: 49% very high 41% high 10% in range 0% low <1% very low avmg/dl std dev: 54mg/dl GMI: 9.3% variation: 21.6% Diabetes Medications: 1000mg Metformin XR 5mg Glipizide 10mg Jardiance Pertinent Labs: HgA1c: 02/2024 10.7% 12/2023 10.9% 10/2023: 9.8% 05/2023: 7.5% 12/2022: 9.3% 09/2022: 9.3% 07/2022: 8.5% 01/2022 7.6% 07/2021 6.6% 01/2021 6.8% 02/2020 6.5% 04/2019 6.2% Past Medical History: (Last Updated 01/27/24 @ 13:46 by Chandni Del Real PA-C) Anxiety R/T inability to work; anxious to return BPH (benign prostatic hyperplasia) Controlled type 2 diabetes mellitus without complication (04/30/16) COPD (chronic obstructive pulmonary disease) Degenerative arthritis of lumbar spine Essential hypertension GERD (gastroesophageal reflux disease) History of COVID-19 05/04, 10/06 Inflamed internal hemorrhoid (02/2018) Internal hemorrhoids Lumbar disc herniation with radiculopathy Peripheral neuropathy Spinal stenosis Tear of rotator cuff (09/19/14) Nutrition Diagnosis: - Excessive CHO intake r/t stage of change contemplative aeb pt report of fast food intake and thoughts on change Intervention: This participant was very receptive. Provided appropriate educational handouts. Discussed the following topics: BG review and trends Options: medication management recommended Nutrition changes: reducing CHO intake at meals Medication costs and concerns Goals: Wear CGM x 10 days- met Bring lunch to work 1-2x before next visit- new Ask insurance about SGLt2i cost at higher dose- new Follow-up: DONNA JULIEN follow-up in 2-3 weeks Aleah Farah RDN, ANAYA Certified Diabetes Care and [employer] P: [phone] Thank you for this referral
== END ==
PROVIDERS: PCP Family Medicine; Referring Provider Family Medicine
DX: E11.9 Type 2 diabetes mellitus without complications (principal); Z71.3 Dietary counseling and surveillance; Z68.31 Body mass index [BMI] 31.0-31.9, adult; Z79.84 Long term (current) use of oral hypoglycemic drugs
CPT/HCPCS: G0270

== ENCOUNTER → 2024-05-24 06:53 | Outpatient (CLI) | payer MEDICARE, OTHER, SELFPAY ==
[2023-07-02 13:24] VITALS: BMI 31.9
[2024-05-24 09:52] LABS: BUN Creatinine Ratio 19.4 (6-22); Blood Urea Nitrogen 20 mg/dL (9-20); Calcium 9.7 mg/dL (8.4-10.2); Carbon Dioxide 23 mmol/L (22-32); Chloride 102 mmol/L (98-107); Estimated Glomerular Filt Rate > 60 mL/min (>60); Glucose 213 mg/dL (80-110); HEMOLYSIS < 15 (0-50); Magnesium 1.4 mg/dL (1.6-2.3); Potassium 4.7 mmol/L (3.4-5.1); Sodium 138 mmol/L (137-145)
[2024-05-24 10:23] LABS: Prostate Specific Antigen Scrn 1.57 ng/mL (0.1-4.0)
[2024-05-24 11:21] LABS: Creatinine Urine Random 61.65 mg/dL
[2024-05-24 11:23] LABS: Microalbumin Urine Random 2.7 mg/dL (0-1.6)
[2024-05-24 14:18] LABS: Hemoglobin A1C% w Est Avg Glu 9.7 % (4.0-6.0)
== END ==
PROVIDERS: PCP Family Medicine; Referring Provider Physician Assistant; Visit Provider Physician Assistant
DX: M65.30 Trigger finger, unspecified finger (principal); E11.65 Type 2 diabetes mellitus with hyperglycemia; Z12.5 Encounter for screening for malignant neoplasm of prostate; R25.2 Cramp and spasm; R80.9 Proteinuria, unspecified; E11.29 Type 2 diabetes mellitus with other diabetic kidney complication
CPT/HCPCS: 36415; 80048; 82043; 82570; 83036; 83735; G0103

== ENCOUNTER → 2024-06-09 08:40 | Outpatient (CLI) | payer MEDICARE, OTHER, SELFPAY ==
[2023-07-02 13:24] VITALS: BMI 31.9
--- NOTE | 2024-07-06 11:29 | DIAB.MNTFU ---
Follow-up Diabetes Medical Nutrition Therapy Assessment Name: Ryland Quevedo Date: 06/09/24 Time: 9-375z Dx: Type II Diabetes Ryland presents for DM follow-up. Reports not feeling well today, thinks he has a cold. Reports $300/90 day for 25mg Jardiance. Has started higher dose. States he ahs been eating more fruit lately. Bringing an apple to work, but not lunch. States he often looks for the most convenient way to eat, ie fast food, microwave meals; though has a freezer full of chicken and fish. States in the winter he gets bored and eats more. Most of his entertainment is in movies, sedentary. Meals reported often high in CHO and low to moderate in protein. No veggies. Work with BG of 267mg/dl today. Anthropometrics: Ht: 68 Wt: 195# today 196.8# 04/07/24 198# 03/02/24 Physical Activity: Recently started lifting weights 1x per day. 40 reps. Self-Monitoring Blood Glucose: FBG always in the 200s. Continues to have excessive hyperglycemia. Last Visit CGM TIR: 49% very high 41% high 10% in range 0% low <1% very low avmg/dl std dev: 54mg/dl GMI: 9.3% variation: 21.6% Diabetes Medications: 1000mg Metformin XR 5mg Glipizide 25mg Jardiance Pertinent Labs: HgA1c: 02/2024 10.7% 12/2023 10.9% 10/2023: 9.8% 05/2023: 7.5% 12/2022: 9.3% 09/2022: 9.3% 07/2022: 8.5% 01/2022 7.6% 07/2021 6.6% 01/2021 6.8% 02/2020 6.5% 04/2019 6.2% Past Medical History: (Last Updated 01/27/24 @ 13:46 by Chandni Del Real PA-C) Anxiety R/T inability to work; anxious to return BPH (benign prostatic hyperplasia) Controlled type 2 diabetes mellitus without complication (04/30/16) COPD (chronic obstructive pulmonary disease) Degenerative arthritis of lumbar spine Essential hypertension GERD (gastroesophageal reflux disease) History of COVID-19 05/04, 1/24 Inflamed internal hemorrhoid (02/2018) Internal hemorrhoids Lumbar disc herniation with radiculopathy Peripheral neuropathy Spinal stenosis Tear of rotator cuff (09/19/14) Nutrition Diagnosis: - Excessive CHO intake r/t stage of change contemplative aeb pt report of fast food/convenience foods intake and thoughts on change Intervention: This participant was very receptive. Provided appropriate educational handouts. Discussed the following topics: Pairing CHO and protein Physical activity Stage of change and motivations Reducing CHO portions Goals: Bring lunch to work 1-2x before next visit-continue Ask insurance about SGLt2i cost at higher dose- met Add chicken to Ramen- new Try 1.5 noodle pack instead of 2- new Follow-up: DONNA JULIEN follow-up in 4 weeks, plans to go fishing, will meet after trip. Aleah Farah RDN, CDCES Certified Diabetes Care and Motor Vehicle Assembly Supervisor P: [phone] Thank you for this referral
== END ==
PROVIDERS: PCP Family Medicine; Referring Provider Family Medicine
DX: E11.9 Type 2 diabetes mellitus without complications (principal); Z71.3 Dietary counseling and surveillance; Z79.84 Long term (current) use of oral hypoglycemic drugs; Z68.31 Body mass index [BMI] 31.0-31.9, adult

== ENCOUNTER → 2024-06-09 11:03 | Outpatient (CLI) | payer MEDICARE, OTHER, SELFPAY ==
[2023-07-02 13:24] VITALS: BMI 31.9
[2024-06-09 11:47] LABS: Influenza A - CEPHEID Flu A NEGATIVE (NEGATIVE); Influenza B - CEPHEID Flu B NEGATIVE (NEGATIVE); Respiratory Syncytial Virus Negative (Negative)
[2024-06-09 11:48] LABS: COVID-19 CEPHEID 4-PLEX PCR Negative (Negative)
== END ==
PROVIDERS: PCP Family Medicine; Visit Provider Nurse Practitioner Family
DX: R05.1 Acute cough (principal); E11.9 Type 2 diabetes mellitus without complications; Z71.3 Dietary counseling and surveillance; Z68.31 Body mass index [BMI] 31.0-31.9, adult; Z79.84 Long term (current) use of oral hypoglycemic drugs
CPT/HCPCS: 0241U; G0270

== ENCOUNTER → 2024-06-10 08:12 | Outpatient (CLI) | payer MEDICARE, OTHER, SELFPAY ==
[2023-07-02 13:24] VITALS: BMI 31.9
--- NOTE | 2024-06-10 08:14 | DI.RAD.S_ITS ---
PROCEDURE: XR CHEST 2V INDICATIONS: shortness of breath, cough TECHNIQUE: 2 views of the chest were acquired. COMPARISON: [facility], CR, XR CHEST 1V, 11/18/2022, 7:32. [facility], CR, XR CHEST 1V, 06/27/2023, 20:58. [facility], CR, XR CHEST 2V, 09/14/2023, 9:31. FINDINGS: Surgical changes and devices: Lumbar spine fixation hardware is partially seen. Lungs and pleura: Lungs are clear. No pleural effusions or pneumothorax. Mediastinum: Mediastinal contours are normal. Heart size is normal. Atherosclerotic calcification of the aortic arch is noted. Bones and chest wall: No suspicious bony abnormalities. Age-appropriate bony degenerative changes are seen. Soft tissues appear unremarkable. IMPRESSION: No focal infiltrates are seen. No acute cardiopulmonary abnormality is seen. Dictated by: Gavin Estrada M.D. on 06/10/2024 at 7:47 Approved by: Gavin Estrada M.D. on 06/10/2024 at 7:49
== END ==
PROVIDERS: PCP Family Medicine; Referring Provider Physician Assistant Surgical; Visit Provider Physician Assistant Surgical
DX: R05.9 Cough, unspecified (principal); R06.02 Shortness of breath
CPT/HCPCS: 71046

== ENCOUNTER → 2024-08-04 08:50 | Outpatient (CLI) | payer MEDICARE, OTHER, SELFPAY ==
[2023-07-02 13:24] VITALS: BMI 31.9
--- NOTE | 2024-08-04 09:01 | DIAB.MNTFU ---
Follow-up Diabetes Medical Nutrition Therapy Assessment Name: Ryland Quevedo Date: 08/04/24 Time: [id number] Dx: Type II Diabetes Ryland presents for DM follow-up. Not eating ramen lately, but did tried it with chicken. Tried smaller portions, but did nto prefer this. Trying to eat this less in general. Eating cream of celery soup with milk, adding garlic powder and celery salt. Reading labels for sugars. Sometimes skipping lunch and having an apple instead. Otherwise, same lunches but less frequently, 3x per week instead of 5x per week. States wt was down to 187-188# but since sinus issues wt has been up. Endorses prednisone tx recently, which likely increased BG. Choosing sf juice/beverages and water. Reports up to 12 jalepeno poppers in a sitting, curious about CHo content (88g CHO) Sees Dr. Marin in Dec for BG checks. Ryland is making more changes to his diet than he has been able to do in quite a while. He reports being motivated by trying to avoid insulin injections. Anthropometrics: Ht: 68 Wt: 195# today 196.8# 04/07/24 198# 03/02/24 Physical Activity: Started PT 2x per week for left side back injury. Self-Monitoring Blood Glucose: FBG lower recently, 160mg/dl this morning. usually 180-210mg/dl. Last Visit CGM TIR: 49% very high 41% high 10% in range 0% low <1% very low avmg/dl std dev: 54mg/dl GMI: 9.3% variation: 21.6% Diabetes Medications: 1000mg Metformin XR 5mg Glipizide 25mg Jardiance Pertinent Labs: HgA1c: 05/2024 9.7% 02/2024 10.7% 12/2023 10.9% 10/2023: 9.8% 05/2023: 7.5% 12/2022: 9.3% 09/2022: 9.3% 07/2022: 8.5% 01/2022 7.6% 07/2021 6.6% 01/2021 6.8% 02/2020 6.5% 04/2019 6.2% Past Medical History: (Last Updated 01/27/24 @ 13:46 by Chandni M Gt, PA-C) Anxiety R/T inability to work; anxious to return BPH (benign prostatic hyperplasia) Controlled type 2 diabetes mellitus without complication (04/30/16) COPD (chronic obstructive pulmonary disease) Degenerative arthritis of lumbar spine Essential hypertension GERD (gastroesophageal reflux disease) History of COVID-19 05/04, 10/06 Inflamed internal hemorrhoid (02/2018) Internal hemorrhoids Lumbar disc herniation with radiculopathy Peripheral neuropathy Spinal stenosis Tear of rotator cuff (09/19/14) Nutrition Rx: Carbohydrates: Meal: 45g Snack:15-30g Nutrition Diagnosis: - Excessive CHO intake r/t stage of change contemplative aeb pt report of fast food/convenience foods intake and thoughts on change- improved/in progress Intervention: This participant was very receptive. Provided appropriate educational handouts. Discussed the following topics: Pairing CHO and protein Physical activity Stage of change and motivations Reducing CHO portions Goals: Add chicken to Ramen- met Try 1.5 noodle pack instead of 2- met Bring meter next visit- new Keep eating out to 2-3x per week or less- new Keep it to 6 jalepeno poppers- new Follow-up: DONNA JULIEN follow-up in 3-4 weeks Aleah Farah RDN, ANAYA Certified Diabetes Care and Lagging Machine Operator P: [phone] Thank you for this referral
== END ==
LOC: DIET 08:52
PROVIDERS: PCP Family Medicine; Referring Provider Family Medicine
DX: E11.65 Type 2 diabetes mellitus with hyperglycemia (principal); Z71.3 Dietary counseling and surveillance; Z79.84 Long term (current) use of oral hypoglycemic drugs
CPT/HCPCS: 97803

== ENCOUNTER 2024-08-10 10:27 | Emergency (ER) | payer MEDICARE, OTHER, SELFPAY ==
[2023-07-02 13:24] VITALS: BMI 31.9
[2024-08-10 10:41] VITALS: BP 129/60; PULSE 74; RESP 18; TEMP 36.4; O2SAT 96; BMI 28.8
--- NOTE | 2024-08-10 10:45 | DI.RAD.S_ITS ---
PROCEDURE: XR FOOT RT MIN 3V INDICATIONS: Patient pulled wire from foot but still see reminiant pot. TECHNIQUE: 3 views of the foot were acquired. COMPARISON: None. FINDINGS: Bones: No fractures or dislocations. Mild tibiotalar degenerative changes. No suspicious bony lesions. Soft tissues: No tibiotalar joint effusion. Achilles tendon appears normal. No radiodense foreign bodies or significant soft tissue gas. IMPRESSION: No foreign body, soft tissue gas, or underlying fracture. Dictated by: Chelsey Potts M.D. on 08/10/2024 at 11:05 Approved by: Chelsey Potts M.D. on 08/10/2024 at 11:06
--- NOTE | 2024-08-10 11:00 | ED_ITS ---
HPI - Extremity Injury (Lower) <Sonam Henson PA-C - Last Filed: 08/10/24 12:24> General Chief Complaint: Extremity Injury, Lower Stated Complaint: Something stuck in right foot Time Seen by Provider: 08/10/24 11:00 Source: patient Mode of arrival: Ambulatory History of Present Illness HPI Narrative: 73-year-old male presents with 2 complaints the 1st being a persistent cough for the last 8 weeks or so, he endorses some greenish-yellow sputum mainly in the mornings, at no time has he described any fever, body aches, joint pains, no shortness of breath, no wheezing. Was seen originally in the walk-in clinic earlier this month and then again by his PCP Chandni Del Real on July 18. He completed a 10 day course of doxycycline, and a course of prednisone which he states really did not change anything. He continues to use nasal saline, ipratropium nasal and cleans his nose regularly. He states he recalls that he was supposed to follow-up as they were considering an ear nose and throat referral. 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 Second complaint is a possible retained foreign body in his right foot. He states that he stepped on some wire type found in a wire brush and it punctured his right foot he points to the ball of his great toe. He states he removed a piece but believes that there may be a retained fragment. His history is significant for neuropathy so his sensation is diminished on his feet but he does check them regularly. His tetanus is up-to-date as of 09/23/2022. No other treatment tried. All other systems are reviewed and are negative. Related Data Home Medications Medication Instructions Recorded Confirmed omeprazole 20 mg capsule,delayed 20 mg PO DAILY 01/31/24 07/18/24 release clobetasol 0.05 % shampoo topical 04/27/24 07/18/24 Previous Rx's Medication Instructions Recorded Contour Test Strips #100 ea 12/25/19 acetaminophen 325 mg capsule 650 mg (2 x 325 mg) PO QID PRN 12/03/23 (Tylenol) pain #60 caps atorvastatin 10 mg tablet 10 mg PO ONCE PM #90 tabs 01/04/24 amlodipine 5 mg tablet 5 mg PO DAILY #90 tabs 01/06/24 metformin 500 mg tablet,extended 1,000 mg (2 x 500 mg) PO QPM #180 01/06/24 release 24 hr tabs tacrolimus 0.1 % topical ointment 1 applic topical BID #60 grams 01/06/24 tamsulosin 0.4 mg capsule 0.4 mg PO DAILY #90 caps 01/06/24 disabled parking #1 ea 01/27/24 enalapril maleate 20 mg tablet 20 mg PO BID #30 tabs 02/08/24 blood sugar diagnostic (Contour #200 ea 03/20/24 Test Strips) clobetasol 0.05 % scalp solution 1 applic topical BID #50 mL 03/21/24 gabapentin 600 mg tablet 600 mg PO .five tablets daily #450 04/25/24 tabs hydrochlorothiazide 25 mg tablet 25 mg PO DAILY #90 tabs 05/24/24 empagliflozin 25 mg tablet 25 mg PO DAILY #90 tabs 05/25/24 hydrocodone 7.5 mg-acetaminophen 1 tab PO .EVENING PRN pain #14 tabs 07/18/24 325 mg tablet Allergies Allergy/AdvReac Type Severity Reaction Status Date / Time Sulfa (Sulfonamide Allergy Severe BLISTER, Verified 07/18/24 14:12 Antibiotics) skin [SULFA (SULFONAMIDE comes off ANTIBIOTICS)] my legs latex [LATEX] Allergy Mild SKIN Verified 07/18/24 14:12 IRRITATION amoxicillin [AMOXICILLIN] AdvReac Severe Makes my Verified 07/18/24 14:12 skin crawl clavulanic acid AdvReac Severe AUGMENTIN/V Verified 07/18/24 14:12 [CLAVULANIC ACID] OMITING Penicillins [PENICILLINS] AdvReac Severe NAUSEA/VOMI Verified 07/18/24 14:12 TING ciprofloxacin [CIPROFLOXACIN] AdvReac Intermediate MADE PT Verified 07/18/24 14:12 FEEL RUMMY/NAUSEA erythromycin base AdvReac Intermediate SKIN Verified 07/18/24 14:12 [ERYTHROMYCIN BASE] CRAWLING Review of Systems <Sonam Henson PA-C - Last Filed: 08/10/24 12:24> Review of Systems Narrative: All other systems reviewed and are negative. Patient History <Sonam Henson PA-C - Last Filed: 08/10/24 12:24> Medical History Trigger finger Anal fissure (02/2018) Left sided sciatica Prepatellar bursitis of right knee Internal hemorrhoids History of COVID-19 Peripheral neuropathy Spinal stenosis COPD (chronic obstructive pulmonary disease) Lumbar disc herniation with radiculopathy Anxiety Degenerative arthritis of lumbar spine Inflamed internal hemorrhoid (02/2018) BPH (benign prostatic hyperplasia) GERD (gastroesophageal reflux disease) Controlled type 2 diabetes mellitus without complication (04/30/16) Tear of rotator cuff (09/19/14) Essential hypertension Surgical History History of back surgery Hx of colonoscopy (12/03/23) S/p bilateral blepharoplasty (11/04/23) S/p bilateral blepharoplasty (03/22/23) History of lumbar spinal fusion (06/20/21) History of lumbar fusion (02/01/19) Hx of microdiscectomy (07/01/18) Hx of hand surgery (~2004) Status post epidural steroid injection H/O colonoscopy (07/08/15) History of elbow surgery H/O sinus surgery (2003) History of sebaceous cyst (2000) Hx of inguinal hernia surgery (1996) Status post laminectomy Family History Father [place] (myocardial infarction) Grandmother Diabetes mellitus Mother Lymphoma Grandfather Colon cancer Sister Bladder cancer Social History marital status: details: Pt. lives with adult son and granddaughter household members: family lives independently: Yes occupational status: employed Smoking Status: Former smoker alcohol intake: current substance use type: does not use Smoking Status: Former smoker alcohol intake frequency: holidays/special occasions only Alcohol type: beer Substance Use Type: does not use Exam <Sonam Henson PA-C - Last Filed: 08/10/24 12:24> Initial Vital Signs Initial Vital Signs: Vital Signs Temperature 97.6 F 08/10/24 10:41 Pulse Rate 74 08/10/24 10:41 Respiratory Rate 18 08/10/24 10:41 Blood Pressure 129/60 08/10/24 10:41 Pulse Oximetry 96 08/10/24 10:41 Oxygen Delivery Method Room Air 08/10/24 10:41 Const Other: Smiling, seated, no distress. Vital signs reviewed and are normal breathing is normal. [facility] Head: normal to inspection, normocephalic and atraumatic Ears: hearing grossly normal bilaterally, external ears normal, TM's normal bilaterally, EAC's normal, mastoids normal and no periauricular adenopathy Nose: external nose normal, No epistaxis and No nasal polyp Face and sinus: normal facial exam, sinuses nontender and face symmetric Mouth: oral mucosae normal, lip normal, tongue normal and oropharynx normal Throat: posterior oropharynx normal, tonsils normal and uvula midline HENMT Other: Increased vasculature of his nasal septum, no active bleeding points. Tissues are slightly inflamed, there is no purulence or odor. posterior pharyngeal nasal drainage is clear. Neck Neck: normal visual inspection, full ROM and no meningeal signs Lymphatic: No lymphadenopathy Resp Effort & Inspection: normal respiratory effort and able to speak in complete sentences Auscultation: clear to auscultation bilaterally, no rales, no rhonchi and no wheezes Cardio Rate: regular rate Rhythm: regular rhythm Extrem Right lower extremity: full ROM, normal capillary refill and foot Details: normal capillary refill, no edema and puncture wound ( Plantar aspect superior to the MTP joint line, single puncture, no redness, it is tender, no fluctuance, transillumination with otoscope reveals no signs of any foreign body. He has full weightbear.) <Krish Salomon MD - Last Filed: 08/10/24 18:26> Initial Vital Signs Initial Vital Signs: Vital Signs Temperature 97.6 F 08/10/24 10:41 Pulse Rate 74 08/10/24 10:41 Respiratory Rate 18 08/10/24 10:41 Blood Pressure 129/60 08/10/24 10:41 Pulse Oximetry 96 08/10/24 10:41 Oxygen Delivery Method Room Air 08/10/24 10:41 Course <Sonam Henson PA-C - Last Filed: 08/10/24 12:24> Orders Ordered: ED Orders 08/10/24 10:45 XR foot RT min 3V Stat 08/10/24 10:51 Respiratory Panel (Film Array) Stat Vital Signs Vital signs: Vital Signs - 8 hr 08/10/24 10:41 08/10/24 12:29 Temperature 97.6 F 98.1 F Pulse Rate 74 80 Respiratory Rate 18 16 Blood Pressure 129/60 122/67 Pulse Oximetry 96 99 Oxygen Delivery Method Room Air Room Air <Krish Salomon MD - Last Filed: 08/10/24 18:26> Orders Ordered: ED Orders 08/10/24 10:45 XR foot RT min 3V Stat 08/10/24 10:51 Respiratory Panel (Film Array) Stat Vital Signs Vital signs: Vital Signs - 8 hr 08/10/24 10:41 08/10/24 12:29 Temperature 97.6 F 98.1 F Pulse Rate 74 80 Respiratory Rate 18 16 Blood Pressure 129/60 122/67 Pulse Oximetry 96 99 Oxygen Delivery Method Room Air Room Air MDM - Extremity Injury (Lower) <Sonam Henson PA-C - Last Filed: 08/10/24 12:24> Lab Data Lab results narrative: Comprehensive respiratory panel is negative. Labs: Lab Results 08/10/24 Range/Units 10:51 Chlamy pneumoniae PCR Not detected (Not Detect) Adenovirus (PCR) Not detected (Not Detect) B. pertussis DNA (PCR) Not detected (Not Detect) B.parapertussis DNA PCR Not detected (Not Detecte) Coronavirus OC43 (PCR) Not detected (Not Detect) Coronavirus HKU1 (PCR) Not detected (Not Detect) Coronavirus 229E (PCR) Not detected (Not Detect) SARS-CoV-2 (PCR) Not detected (Not Detecte) Coronavirus NL63 (PCR) Not detected (Not Detect) Human Metapneumovir PCR Not detected (Not Detect) Influenza Type A (PCR) Not detected (Not Detect) Influenza Type B (PCR) Not detected (Not Detect) M. pneumoniae (PCR) Not detected (Not Detect) Parainfluenza 1 (PCR) Not detected (Not Detect) Parainfluenza 2 (PCR) Not detected (Not Detect) Parainfluenza 3 (PCR) Not detected (Not Detect) Parainfluenza 4 (PCR) Not detected (Not Detect) RSV (PCR) Not detected (Not Detect) Entero/Rhino (PCR) Not detected (Not Detect) Imaging Data Extremity x-ray #1: My Impression: Deferred to radiologist's interpretation below, no foreign body. Radiologist's Impression: PROCEDURE: XR FOOT RT MIN 3V INDICATIONS: Patient pulled wire from foot but still see reminiant pot. TECHNIQUE: 3 views of the foot were acquired. COMPARISON: None. FINDINGS: Bones: No fractures or dislocations. Mild tibiotalar degenerative changes. No suspicious bony lesions. Soft tissues: No tibiotalar joint effusion. Achilles tendon appears normal. No radiodense foreign bodies or significant soft tissue gas. IMPRESSION: No foreign body, soft tissue gas, or underlying fracture. Dictated by: Chelsey Potts M.D. on 08/10/2024 at 11:05 Approved by: Chelsey Potts M.D. on 08/10/2024 at 11:06 [facility] Narrative Medical decision making narrative: No visible, palpable foreign body, x-ray was negative, this can not exclude a retained foreign body. His tetanus is up-to-date. I have referred him to Podiatry for follow-up for possible retained foreign body. I have asked him to do warm soaks, in the interim he can use a corn pad so that he does not have direct impact to this tender area. He will monitor for any signs of infection which includes increased redness, pain, drainage, heat to the area. Regarding his upper respiratory complaint, no clinical findings to suggest an acute bacterial infection. He was already treated with doxycycline earlier this month, I have asked him to return to his PCP and discuss an ear nose and throat referral. Highly encouraged to continue saline nasal spray, consider adding a Neti pot, consider starting [id number] fluticasone, seek medical atten tion if anything changes or worsens. Red flag warning signs reviewed in detail. <Krish Salomon MD - Last Filed: 08/10/24 18:26> Lab Data Labs: Lab Results 08/10/24 Range/Units 10:51 Chlamy pneumoniae PCR Not detected (Not Detect) Adenovirus (PCR) Not detected (Not Detect) B. pertussis DNA (PCR) Not detected (Not Detect) B.parapertussis DNA PCR Not detected (Not Detecte) Coronavirus OC43 (PCR) Not detected (Not Detect) Coronavirus HKU1 (PCR) Not detected (Not Detect) Coronavirus 229E (PCR) Not detected (Not Detect) SARS-CoV-2 (PCR) Not detected (Not Detecte) Coronavirus NL63 (PCR) Not detected (Not Detect) Human Metapneumovir PCR Not detected (Not Detect) Influenza Type A (PCR) Not detected (Not Detect) Influenza Type B (PCR) Not detected (Not Detect) M. pneumoniae (PCR) Not detected (Not Detect) Parainfluenza 1 (PCR) Not detected (Not Detect) Parainfluenza 2 (PCR) Not detected (Not Detect) Parainfluenza 3 (PCR) Not detected (Not Detect) Parainfluenza 4 (PCR) Not detected (Not Detect) RSV (PCR) Not detected (Not Detect) Entero/Rhino (PCR) Not detected (Not Detect) Discharge Plan Departure Patient Disposition: Home Clinical Impression: Post-nasal drainage, Puncture wound Instructions: DI for Sinusitis, DI for Puncture Wound Activity Restrictions/Additional Instructions: Please follow up with your PCP regarding your chronic nasal congestion and drainage, consider adding a Neti pot which is available [id number], cons ider [id number] fluticasone, also please remember that your PCP recommended an ear nose and throat evaluation as well if this requires referral Chandni Del Real can certainly help you with this. Regarding the puncture wound, your tetanus is up-to-date, I would like you to do warm soaks to try and create prune skin if there is a retained foreign body this will help allow it to exit, I have listed a convenience store clerk that you may contact for follow-up. In the interim consider using corn pads so that you do not have direct contact that will cause pain. Please do monitor for signs of infection which includes increased redness, swelling, any drainage, pus, heat to the area, fever, increased pain or any other worrisome symptoms. I have listed discharge instructions for sinusitis, I do not believe an antibiotic is warranted at this point, but this has a helpful handout to try and keep the congestion at bay. Prescriptions: No Action omeprazole 20 mg capsule,delayed release(DR/EC) 20 mg PO DAILY (DME) Contour Test Strips 0 .Route .MEDSUPPLY Qty: 100 0RF Rx Instructions: Use daily as directed to monitor blood glucose. atorvastatin 10 mg tablet 10 mg PO ONCE PM Qty: 90 3RF amlodipine 5 mg tablet 5 mg PO DAILY Qty: 90 3RF tamsulosin 0.4 mg capsule 0.4 mg PO DAILY Qty: 90 3RF enalapril maleate 20 mg tablet 20 mg PO BID Qty: 30 0RF (DME) Contour Test Strips Strip See Rx Instructions .Route Qty: 200 11RF Rx Instructions: use up to 4 times daily to monitor blood sugar as directed clobetasol 0.05 % solution 1 applic topical BID Qty: 50 3RF gabapentin 600 mg tablet 600 mg PO .five tablets daily Qty: 450 1RF Rx Instructions: The patient takes a total of 5 tablets daily hydrochlorothiazide 25 mg tablet 25 mg PO DAILY Qty: 90 3RF Jardiance 25 mg tablet 25 mg PO DAILY Qty: 90 3RF tacrolimus 0.1 % ointment 1 applic topical BID Qty: 60 0RF Rx Instructions: apply small amount to area for two weeks metformin 500 mg tablet extended release 24 hr 1,000 mg PO QPM Qty: 180 3RF clobetasol 0.05 % shampoo topical hydrocodone-acetaminophen 7.5-325 mg tablet 1 tab PO .EVENING PRN (Reason: pain) Qty: 14 0RF Rx Instructions: Take one tablet each evening as needed for neck pain (DME) disabled parking See Rx Instructions .ROUTE .MEDSUPPLY Qty: 1 0RF Rx Instructions: I find this patient to be medically disabled and qualified for Disabled Parking as indicated, and signed, on the Accompanying Disabled Parking Application for individuals. acetaminophen [Tylenol] 325 mg capsule 650 mg PO QID PRN (Reason: pain) Qty: 60 0RF Referrals: Ghislaine Darden DPM [Physician] - Cas Marin MD [Primary Care Provider] - Stand Alone Forms: Patient Portal/API/Survey ED Sign-out <Krish Salomon MD - Last Filed: 08/10/24 18:26> Cosign ED Attending Cosignature Attestation: I was immediately available in the department for consultation. This documentation has been reviewed and I agree with assessment and plan. Supervised by Krish Salomon MD
[2024-08-10 11:44] LABS: Adenovirus Not Detected (Not Detect); B. parapertussis Not Detected (Not Detecte); Bordetella pertussis Not Detected (Not Detect); Chlamydophila pneumoniae Not Detected (Not Detect); Coronavirus 229E Not Detected (Not Detect); Coronavirus HKU1 Not Detected (Not Detect); Coronavirus NL 63 Not Detected (Not Detect); Coronavirus OC43 Not Detected (Not Detect); Human Metapneumovirus Not Detected (Not Detect); Human Rhinovirus/Enterovirus Not Detected (Not Detect); Influenza A Not Detected (Not Detect); Influenza B Not Detected (Not Detect); Mycoplasma pneumoniae Not Detected (Not Detect); Parainfluenza Virus 1 Not Detected (Not Detect); Parainfluenza Virus 2 Not Detected (Not Detect); Parainfluenza Virus 3 Not Detected (Not Detect); Parainfluenza Virus 4 Not Detected (Not Detect); Respiratory Syncytial Virus Not Detected (Not Detect); SARS- CoV-2 Not Detected (Not Detecte)
[2024-08-10 12:29] VITALS: BP 122/67; PULSE 80; RESP 16; TEMP 36.7; O2SAT 99
== END 2024-08-10 12:30 | disposition home or self-care (01) ==
PROVIDERS: Emergency Medicine; Emergency Provider Physician Assistant Medical; PCP Family Medicine
DX: R05.9 Cough, unspecified (principal); R09.82 Postnasal drip; S91.231A Puncture wound without foreign body of right great toe with damage to nail, initial encounter; W22.8XXA Striking against or struck by other objects, initial encounter
CPT/HCPCS: 73630; 87633; 99281; 99283

== ENCOUNTER → 2024-08-21 06:47 | Outpatient (CLI) | payer MEDICARE, OTHER, SELFPAY ==
[2023-07-02 13:24] VITALS: BMI 31.9
[2024-08-21 08:40] LABS: Hemoglobin A1C% w Est Avg Glu 9.3 % (4.0-6.0)
== END ==
PROVIDERS: PCP Family Medicine; Referring Provider Family Medicine; Visit Provider Family Medicine
DX: E11.9 Type 2 diabetes mellitus without complications (principal)
CPT/HCPCS: 36415; 83036

== ENCOUNTER 2024-09-26 17:51 | Emergency (ER) | payer MEDICARE, OTHER, SELFPAY ==
[2023-07-02 13:24] VITALS: BMI 31.9
[2024-09-26 17:54] VITALS: BP 127/66; PULSE 88; RESP 17; TEMP 36.5; O2SAT 96; BMI 28.8
--- NOTE | 2024-09-26 17:58 | DI.RAD.S_ITS ---
PROCEDURE: XR FINGER RT MIN 2V INDICATIONS: wound from sharp metal TECHNIQUE: AP hand, 2 views of the 1st finger(s) acquired. COMPARISON: None. FINDINGS: Bones: No fractures or dislocations. No suspicious bony lesions. Soft tissues: No suspicious soft tissue calcifications. IMPRESSION: No gross acute right thumb fracture or dislocation. No radiopaque foreign body is seen. Dictated by: Poncho Red M.D. on 09/26/2024 at 18:34 Approved by: Poncho Red M.D. on 09/26/2024 at 18:35
--- NOTE | 2024-09-26 20:18 | PC.NURSE ---
Pt reports he feels like he is unable to move his thumb like normal. 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
--- NOTE | 2024-09-26 20:34 | ED.WOUNDLAC ---
HPI - Wound/Laceration General Chief Complaint: Wound/Laceration Stated Complaint: R Hand Laceration Time Seen by Provider: 09/26/24 20:24 Source: patient, RN notes reviewed and old records reviewed Mode of arrival: Ambulatory Limitations: no limitations History of Present Illness HPI narrative: 73-year-old male history of hypertension dyslipidemia diabetes with complaint of injury to the dorsal side of his right thumb patient was using a wrench the fitting broke and he hit his hand sharp piece of metal. Patient states this happened about 10 30 this morning. He states he was has a little bit of difficulty with movement of his thumb. He has had injuries to the tendons of his thumb and 2nd finger on that hand in the past and states he had to have repair and states it feels a little bit similar. Denies any numbness or tingling. No other injuries. States his tetanus is up-to-date. Dr. Marin is his primary care physician Related Data Home Medications Medication Instructions Recorded Confirmed omeprazole 20 mg capsule,delayed 20 mg PO DAILY 01/31/24 09/14/24 release clobetasol 0.05 % shampoo topical 04/27/24 09/14/24 Previous Rx's Medication Instructions Recorded Contour Test Strips #100 ea 12/25/19 acetaminophen 325 mg capsule 650 mg (2 x 325 mg) PO QID PRN 12/03/23 (Tylenol) pain #60 caps atorvastatin 10 mg tablet 10 mg PO ONCE PM #90 tabs 01/04/24 amlodipine 5 mg tablet 5 mg PO DAILY #90 tabs 01/06/24 metformin 500 mg tablet,extended 1,000 mg (2 x 500 mg) PO QPM #180 01/06/24 release 24 hr tabs tacrolimus 0.1 % topical ointment 1 applic topical BID #60 grams 01/06/24 tamsulosin 0.4 mg capsule 0.4 mg PO DAILY #90 caps 01/06/24 disabled parking #1 ea 01/27/24 enalapril maleate 20 mg tablet 20 mg PO BID #30 tabs 02/08/24 blood sugar diagnostic (Contour #200 ea 03/20/24 Test Strips) clobetasol 0.05 % scalp solution 1 applic topical BID #50 mL 03/21/24 gabapentin 600 mg tablet 600 mg PO .five tablets daily #450 04/25/24 tabs hydrochlorothiazide 25 mg tablet 25 mg PO DAILY #90 tabs 05/24/24 empagliflozin 25 mg tablet 25 mg PO DAILY #90 tabs 05/25/24 semaglutide 0.25 mg or 0.5 mg (2 0.5 mg (0.736 mL) SUBCUT QWEEK #3 08/29/24 mg/3 mL) subcutaneous pen injector mL hydrocodone 7.5 mg-acetaminophen 1 tab PO .EVENING PRN pain #14 tabs 09/07/24 325 mg tablet hydrocortisone 2.5 % topical cream 1 applic topical BID PRN 09/07/24 Hemorrhoids #60 grams doxycycline hyclate 100 mg capsule 100 mg PO BID #20 caps 09/14/24 clindamycin HCl 300 mg capsule 300 mg PO Q6H 5 days #20 caps 09/26/24 Allergies Allergy/AdvReac Type Severity Reaction Status Date / Time Sulfa (Sulfonamide Allergy Severe BLISTER, Verified 09/14/24 08:18 Antibiotics) skin [SULFA (SULFONAMIDE comes off ANTIBIOTICS)] my legs latex [LATEX] Allergy Mild SKIN Verified 09/14/24 08:18 IRRITATION amoxicillin [AMOXICILLIN] AdvReac Severe Makes my Verified 09/14/24 08:18 skin crawl clavulanic acid AdvReac Severe AUGMENTIN/V Verified 09/14/24 08:18 [CLAVULANIC ACID] OMITING Penicillins [PENICILLINS] AdvReac Severe NAUSEA/VOMI Verified 09/14/24 08:18 TING ciprofloxacin [CIPROFLOXACIN] AdvReac Intermediate MADE PT Verified 09/14/24 08:18 FEEL RUMMY/NAUSEA erythromycin base AdvReac Intermediate SKIN Verified 09/14/24 08:18 [ERYTHROMYCIN BASE] CRAWLING doxycycline AdvReac Gastrointestinal Verified 09/26/24 17:54 Upset Review of Systems Review of Systems ROS Unobtainable: All systems reviewed & are unremarkable except as noted in HPI and below Patient History Medical History Trigger finger Anal fissure (02/2018) Left sided sciatica Prepatellar bursitis of right knee Internal hemorrhoids History of COVID-19 Peripheral neuropathy Spinal stenosis COPD (chronic obstructive pulmonary disease) Lumbar disc herniation with radiculopathy Anxiety Degenerative arthritis of lumbar spine Inflamed internal hemorrhoid (02/2018) BPH (benign prostatic hyperplasia) GERD (gastroesophageal reflux disease) Controlled type 2 diabetes mellitus without complication (04/30/16) Tear of rotator cuff (09/19/14) Essential hypertension Surgical History History of back surgery Hx of colonoscopy (12/03/23) S/p bilateral blepharoplasty (11/04/23) S/p bilateral blepharoplasty (03/22/23) History of lumbar spinal fusion (06/20/21) History of lumbar fusion (02/01/19) Hx of microdiscectomy (07/01/18) Hx of hand surgery (~2004) Status post epidural steroid injection H/O colonoscopy (07/08/15) History of elbow surgery H/O sinus surgery (2003) History of sebaceous cyst (2000) Hx of inguinal hernia surgery (1996) Status post laminectomy Family History Father CA (myocardial infarction) Grandmother Diabetes mellitus Mother Lymphoma Grandfather Colon cancer Sister Bladder cancer Social History marital status: details: Pt. lives with adult son and granddaughter household members: family lives independently: Yes occupational status: employed Smoking Status: Former smoker alcohol intake: current substance use type: does not use Smoking Status: Former smoker alcohol intake frequency: holidays/special occasions only Alcohol type: beer Exam Narrative Exam Narrative: GENERAL: Alert and oriented x three, male in mild distress HEENT: Head normocephalic, atraumatic, EOMI, pupils reactive, face symmetric, moist mucous membranes NECK: Supple, full range of motion CARDIOVASCULAR: Regular rate and rhythm without murmurs, rubs or gallops. RESPIRATORY: Breath sounds equal bilaterally, no wheezes rales or rhonchi. EXTREMITIES: Patient has a linear laceration on the dorsum side over the proximal joint of his thumb in his right hand. It is well aligned about a cm a half in length. Patient is able to flex at the joint he has a little bit more difficulty at the distal joint. Does not appear to have any obvious tendon or ligament injury. He is normal sensation throughout no warmth erythema or other skin changes., no clubbing or edema. Neurovascularly intact NEUROLOGICAL: Cranial nerves II through XII grossly intact. Moving all extremities SKIN: Warm, dry, no petechiae, no rashes or lesions. Initial Vital Signs Initial Vital Signs: Vital Signs Temperature 97.7 F 09/26/24 17:54 Pulse Rate 88 09/26/24 17:54 Respiratory Rate 17 09/26/24 17:54 Blood Pressure 127/66 09/26/24 17:54 Pulse Oximetry 96 09/26/24 17:54 Oxygen Delivery Method Room Air 09/26/24 17:54 Procedures Laceration Repair Laceration 1: Site: hand (right thumb) Side (If applicable): right Size (cm): 1.5 Description: linear Depth: simple, single layer Local Anesthetic: lidocaine 2% Amount of anesthesia used (mL): 4 Pre-repair: wound explored, irrigated extensively and deep structures intact Skin layer closed with: nylon Skin layer suture size: 4-0 Number of sutures: 4 Technique: simple, interrupted Course Orders Ordered: ED Orders 09/26/24 17:58 XR finger RT min 2V Stat Discontinued Medications Bacitracin (Bacitracin Oint 0.9 Gm Pckt) 1 applic TOP NOW ONE Stop: 09/26/24 21:50 Last Admin: 09/26/24 21:54 Dose: 1 applic Documented By: Lidocaine HCl (Lidocaine 2% Inj Sdv 5ml) 5 ml INJ NOW ONE Stop: 09/26/24 20:45 Last Admin: 09/26/24 21:53 Dose: 5 ml Documented By: Vital Signs Vital signs: Vital Signs - 8 hr 09/26/24 22:10 Temperature 97.5 F L Pulse Rate 67 Respiratory Rate 17 Blood Pressure 144/67 H Pulse Oximetry 95 Oxygen Delivery Method Room Air MDM - Wound/Laceration Imaging Data Extremity x-ray #1: Radiologist's Impression: [address] [address] XRay Report Signed Patient: Ryland Quevedo MR#: [id number] : 1950 Acct:[id number] Age/Sex: 73 / M Date of Service: 09/26/24 Loc: ED Accession Number: [id number] Procedure: XR finger RT min 2V Ordering Provider: Nadege Uribe MD PROCEDURE: XR FINGER RT MIN 2V INDICATIONS: wound from sharp metal TECHNIQUE: AP hand, 2 views of the 1st finger(s) acquired. COMPARISON: None. FINDINGS: Bones: No fractures or dislocations. No suspicious bony lesions. Soft tissues: No suspicious soft tissue calcifications. IMPRESSION: No gross acute right thumb fracture or dislocation. No radiopaque foreign body is seen. Dictated by: Poncho Red M.D. on 09/26/2024 at 18:34 Approved by: Poncho Red M.D. on 09/26/2024 at 18:35 [facility] Narrative Medical decision making narrative: Patient had x-ray which shows no acute fracture, no radiopaque foreign body noted. Laceration was repaired as over the dorsum of the proximal joint of the thumb notes that he had a prior injuries that required tendon repair on his thumb and 2nd finger in the past. Patient states he ultimately got full range of motion back with PT. He states it feels like it is decreased and he thinks he may have injured it although not visualized on exam. Patient's laceration was suture placed in splint and we will have patient follow up with Orthopedic surgery for further eval. 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 Was cleansed here in the department. Patient has a multiple antibiotic allergies so clindamycin was ultimately selected. Discharge Plan Departure Patient Disposition: Home Clinical Impression: Laceration of right thumb Instructions: DI for Laceration Repair Activity Restrictions/Additional Instructions: Follow up with the Orthopedic surgery for recheck to evaluate if you have had any injury to the tendons or ligaments of your hand. Please call to set up an appointment. Contacts included below. You will need to have your sutures removed in the next 7-10 days either with Orthopedic surgery, primary care, urgent care of the emergency department. Take antibiotics until completed [facility]. Wear of the brace to protect your sutures so that they do not pull out or cause more injury to your thumb. Wound Care: Keep wound(s) clean and dry. Wash daily with soap and water only. Do not use over the counter products (alcohol or peroxide)on the wounds unless instructed by a physician. You can use a topical triple antibiotic ointment to the skin if tolerated. If wound condition worsens (increased/expanding redness, developing fluid blisters, or worsening pain), either contact your doctor for an urgent re-assessment , or return to the Emergency Department. Return if fever greater than 100.4 Fahrenheit, increased swelling, increasing pain or worsening symptoms such as increased discharge or spreading redness. Prescriptions: New clindamycin HCl 300 mg capsule 300 mg PO Q6H 5 Days Qty: 20 0RF No Action omeprazole 20 mg capsule,delayed release(DR/EC) 20 mg PO DAILY (DME) Contour Test Strips 0 .Route .MEDSUPPLY Qty: 100 0RF Rx Instructions: Use daily as directed to monitor blood glucose. atorvastatin 10 mg tablet 10 mg PO ONCE PM Qty: 90 3RF amlodipine 5 mg tablet 5 mg PO DAILY Qty: 90 3RF tamsulosin 0.4 mg capsule 0.4 mg PO DAILY Qty: 90 3RF enalapril maleate 20 mg tablet 20 mg PO BID Qty: 30 0RF (DME) Contour Test Strips Strip See Rx Instructions .Route Qty: 200 11RF Rx Instructions: use up to 4 times daily to monitor blood sugar as directed clobetasol 0.05 % solution 1 applic topical BID Qty: 50 3RF gabapentin 600 mg tablet 600 mg PO .five tablets daily Qty: 450 1RF Rx Instructions: The patient takes a total of 5 tablets daily hydrochlorothiazide 25 mg tablet 25 mg PO DAILY Qty: 90 3RF Jardiance 25 mg tablet 25 mg PO DAILY Qty: 90 3RF semaglutide 0.25 mg or 0.5 mg (2 mg/3 mL) pen injector 0.5 mg SUBCUT QWEEK Qty: 3 3RF tacrolimus 0.1 % ointment 1 applic topical BID Qty: 60 0RF Rx Instructions: apply small amount to area for two weeks metformin 500 mg tablet extended release 24 hr 1,000 mg PO QPM Qty: 180 3RF clobetasol 0.05 % shampoo topical hydrocortisone 2.5 % cream 1 applic TOP BID PRN (Reason: Hemorrhoids) Qty: 60 1RF hydrocodone-acetaminophen 7.5-325 mg tablet 1 tab PO .EVENING PRN (Reason: pain) Qty: 14 0RF Rx Instructions: Take one tablet each evening as needed for neck pain (DME) disabled parking See Rx Instructions .ROUTE .MEDSUPPLY Qty: 1 0RF Rx Instructions: I find this patient to be medically disabled and qualified for Disabled Parking as indicated, and signed, on the Accompanying Disabled Parking Application for individuals. doxycycline hyclate 100 mg capsule 100 mg PO BID Qty: 20 0RF acetaminophen [Tylenol] 325 mg capsule 650 mg PO QID PRN (Reason: pain) Qty: 60 0RF Referrals: Cas Marin MD [Primary Care Provider] - Enedelia Gonzalez MD [Physician] - Stand Alone Forms: Patient Portal/API/Survey
[2024-09-26] MEDS: LIDOCAINE 2% INJ SDV 5ML 5 ML INJ (21:53)
[2024-09-26] MEDS: BACITRACIN OINT 0.9 GM PCKT 1 APPLIC TOP (21:54)
--- NOTE | 2024-09-26 22:09 | PC.NURSE ---
Splint applied to R thumb
[2024-09-26 22:10] VITALS: BP 144/67; PULSE 67; RESP 17; TEMP 36.4; O2SAT 95
== END 2024-09-26 22:11 | disposition home or self-care (01) ==
PROVIDERS: Emergency Provider Emergency Medicine; PCP Family Medicine
DX: S61.011A Laceration without foreign body of right thumb without damage to nail, initial encounter (principal); W22.8XXA Striking against or struck by other objects, initial encounter
CPT/HCPCS: 12001; 73140; 99283

== ENCOUNTER → 2024-09-29 08:58 | Outpatient (CLI) | payer MEDICARE, OTHER, SELFPAY ==
[2023-07-02 13:24] VITALS: BMI 31.9
--- NOTE | 2024-09-29 09:06 | DIAB.FU ---
Follow-up Diabetes Education Assessment Name: Ryland Quevedo Date: 09/29/23 Time: 9-290a Dx: Type II Diabetes Ryland presents for DM follow-up. Started Ozempic two weeks ago. Reports some reduced appetite. Possibly some diarrhea, but mild. Reduced eating out to 3x per week still. UTD on eye appt. Continues to bring fruit to lunch. Continues with frequent urination at night, min 4x per night. Eating BID. Usually skips breakfast. Avoiding white foods, ie bread. Ate fried chicken fast food yesterday, diarrhea as a result. Overall, smaller portions with reduced appetite. Eating fruits and veggies. Anthropometrics: Ht: 68 Wt: 194# today 194# today 08/29/24 195# 08/04/24 196.8# 04/07/24 198# 03/02/24 Physical Activity: Started PT 2x per week for left side back injury. Self-Monitoring Blood Glucose: FBG reviewed today via meter. Recent FB, 129, 150, 155, 186, 176, 160. Much improved since last visit, with all under 200mg/dl this visit. Diabetes Medications: 1000mg Metformin XR 5mg Glipizide 25mg Jardiance 0.25-0.5mg Ozempic per week Pertinent Labs: HgA1c: 08/2024 9.3% 05/2024 9.7% 02/2024 10.7% 12/2023 10.9% 10/2023: 9.8% 05/2023: 7.5% 12/2022: 9.3% 09/2022: 9.3% 07/2022: 8.5% 01/2022 7.6% 07/2021 6.6% 01/2021 6.8% 02/2020 6.5% 04/2019 6.2% Past Medical History: (Last Reviewed 09/26/24 @ 20:42 by Jessy Ibarra DO) Anal fissure (02/2018) Anxiety R/T inability to work; anxious to return BPH (benign prostatic hyperplasia) Controlled type 2 diabetes mellitus without complication (04/30/16) COPD (chronic obstructive pulmonary disease) Degenerative arthritis of lumbar spine Essential hypertension GERD (gastroesophageal reflux disease) History of COVID-19 05/04, 10/06 Inflamed internal hemorrhoid (02/2018) Internal hemorrhoids Left sided sciatica Lumbar disc herniation with radiculopathy Peripheral neuropathy Prepatellar bursitis of right knee Spinal stenosis Tear of rotator cuff (09/19/14) Trigger finger Intervention: This participant was very receptive. Provided appropriate educational handouts. Discussed the following topics: Improvements he has made Nature of diabetes management and progression Medication management: GLP1 dosing and SE and injection site rotations Meal timing and frequency Reducing complication risks Emergency preparedness Goals: Make an eye appt- met Can try other 15g fruits at lunch- met Eat TID- new Continue 0.5mg Semaglutide per week- new Follow-up: DONNA JULIEN follow-up in 3-4 weeks Aleah Farah RDN, [facility] Certified Diabetes Care and Stroke Program Coordinator P: [phone] Thank you for this referral
== END ==
PROVIDERS: PCP Family Medicine; Referring Provider Family Medicine
DX: E11.65 Type 2 diabetes mellitus with hyperglycemia (principal); Z79.85 Long-term (current) use of injectable non-insulin antidiabetic drugs; Z71.3 Dietary counseling and surveillance; Z79.84 Long term (current) use of oral hypoglycemic drugs; Z79.4 Long term (current) use of insulin
CPT/HCPCS: G0108

== ENCOUNTER 2024-10-29 23:21 | Emergency (ER) | payer MEDICARE, OTHER, SELFPAY ==
[2023-07-02 13:24] VITALS: BMI 31.9
[2024-10-29 23:24] VITALS: BP 102/51; PULSE 62; RESP 18; TEMP 36.1; O2SAT 96; BMI 28.7
[2024-10-30 03:20] VITALS: BP 97/54; PULSE 68; O2SAT 97
--- NOTE | 2024-10-30 03:22 | PC.NURSE ---
Pt has rash on bilateral inner thighs. goes up left buttocks. Rash is not warm to touch compared to surrounding skin. Pt reports rash is itchy but sensitive to touch.
[2024-10-30 03:30] VITALS: BP 107/55; PULSE 64; O2SAT 94
--- NOTE | 2024-10-30 03:43 | ED_ITS ---
HPI - Skin/Abscess/Foreign Bdy General Chief complaint: Skin/Abscess/Foreign Body Stated complaint: bad rash Time Seen by Provider: 10/30/24 03:42 Source: patient Mode of arrival: Ambulatory Limitations: no limitations History of Present Illness HPI narrative: 73-year-old male with history of diabetes, history of prior 2019 medial thigh cellulitis successfully treated with cephalexin, prior prepatellar bursitis t reated with doxycycline, complains of rash between his legs similar to 2019. No injury or trauma or exposure to new materials. No hives. No shortness of breath or wheeze. History of penicillin allergy, however he has taken cephalexin before. Related Data Home Medications Medication Instructions Recorded Confirmed omeprazole 20 mg capsule,delayed 20 mg PO DAILY 01/31/24 09/14/24 release clobetasol 0.05 % shampoo topical 04/27/24 09/14/24 Previous Rx's Medication Instructions Recorded Contour Test Strips #100 ea 12/25/19 acetaminophen 325 mg capsule 650 mg (2 x 325 mg) PO QID PRN 12/03/23 (Tylenol) pain #60 caps metformin 500 mg tablet,extended 1,000 mg (2 x 500 mg) PO QPM #180 01/06/24 release 24 hr tabs tacrolimus 0.1 % topical ointment 1 applic topical BID #60 grams 01/06/24 disabled parking #1 ea 01/27/24 enalapril maleate 20 mg tablet 20 mg PO BID #30 tabs 02/08/24 blood sugar diagnostic (Contour #200 ea 03/20/24 Test Strips) clobetasol 0.05 % scalp solution 1 applic topical BID #50 mL 03/21/24 gabapentin 600 mg tablet 600 mg PO .five tablets daily #450 04/25/24 tabs hydrochlorothiazide 25 mg tablet 25 mg PO DAILY #90 tabs 05/24/24 empagliflozin 25 mg tablet 25 mg PO DAILY #90 tabs 05/25/24 semaglutide 0.25 mg or 0.5 mg (2 0.5 mg (0.736 mL) SUBCUT QWEEK #3 08/29/24 mg/3 mL) subcutaneous pen injector mL hydrocodone 7.5 mg-acetaminophen 1 tab PO .EVENING PRN pain #14 tabs 09/07/24 325 mg tablet hydrocortisone 2.5 % topical cream 1 applic topical BID PRN 09/07/24 Hemorrhoids #60 grams doxycycline hyclate 100 mg capsule 100 mg PO BID #20 caps 09/14/24 amlodipine 5 mg tablet 5 mg PO DAILY #90 tabs 10/19/24 atorvastatin 10 mg tablet 10 mg PO QPM #90 tabs 10/19/24 tamsulosin 0.4 mg capsule 0.4 mg PO DAILY #90 caps 10/19/24 cephalexin 500 mg capsule 500 mg PO QID 7 days #28 caps 10/30/24 Allergies Allergy/AdvReac Type Severity Reaction Status Date / Time Sulfa (Sulfonamide Allergy Severe BLISTER, Verified 09/14/24 08:18 Antibiotics) skin [SULFA (SULFONAMIDE comes off ANTIBIOTICS)] my legs latex [LATEX] Allergy Mild SKIN Verified 09/14/24 08:18 IRRITATION amoxicillin [AMOXICILLIN] AdvReac Severe Makes my Verified 09/14/24 08:18 skin crawl clavulanic acid AdvReac Severe AUGMENTIN/V Verified 09/14/24 08:18 [CLAVULANIC ACID] OMITING Penicillins [PENICILLINS] AdvReac Severe NAUSEA/VOMI Verified 09/14/24 08:18 TING ciprofloxacin [CIPROFLOXACIN] AdvReac Intermediate MADE PT Verified 09/14/24 08:18 FEEL RUMMY/NAUSEA erythromycin base AdvReac Intermediate SKIN Verified 09/14/24 08:18 [ERYTHROMYCIN BASE] CRAWLING doxycycline AdvReac Gastrointestinal Verified 09/26/24 17:54 Upset Patient History Medical History Trigger finger Anal fissure (02/2018) Left sided sciatica Prepatellar bursitis of right knee Internal hemorrhoids History of COVID-19 Peripheral neuropathy Spinal stenosis COPD (chronic obstructive pulmonary disease) Lumbar disc herniation with radiculopathy Anxiety Degenerative arthritis of lumbar spine Inflamed internal hemorrhoid (02/2018) BPH (benign prostatic hyperplasia) GERD (gastroesophageal reflux disease) Controlled type 2 diabetes mellitus without complication (04/30/16) Tear of rotator cuff (09/19/14) Essential hypertension Surgical History History of back surgery Hx of colonoscopy (12/03/23) S/p bilateral blepharoplasty (11/04/23) S/p bilateral blepharoplasty (03/22/23) History of lumbar spinal fusion (06/20/21) History of lumbar fusion (02/01/19) Hx of microdiscectomy (07/01/18) Hx of hand surgery (~2004) Status post epidural steroid injection H/O colonoscopy (07/08/15) History of elbow surgery H/O sinus surgery (2003) History of sebaceous cyst (2000) Hx of inguinal hernia surgery (1996) Status post laminectomy Family History Father AR (myocardial infarction) Grandmother Diabetes mellitus Mother Lymphoma Grandfather Colon cancer Sister Bladder cancer Social History marital status: details: Pt. lives with adult son and granddaughter household members: family lives independently: Yes occupational status: employed Smoking Status: Former smoker alcohol intake: current substance use type: does not use Smoking Status: Former smoker alcohol intake frequency: holidays/special occasions only Alcohol type: beer Exam Narrative Exam Narrative: GENERAL: Well-developed patient, in mild distress. HEAD: Atraumatic. Normocephalic. EYES: Pupils equal round and reactive. Extraocular motions intact. No scleral icterus. No injection or drainage. ENT: Nose without bleeding, purulent drainage. Throat without erythema, tonsillar hypertrophy or exudate. Airway patent. NECK: Trachea midline. Non tender CARDIOVASCULAR: Regular rate and rhythm without murmurs, gallops, or rubs. RESPIRATORY: Clear to auscultation. Breath sounds equal bilaterally. No wheezes, rales, or rhonchi. GASTROINTESTINAL: Abdomen soft, non-tender, nondistended. EXTREMITIES: [id number]-left medial thigh patchy areas of erythema, no vesicles, non dermatomal distribution, no urticaria, no blisters. Smaller area left medial thigh similar appearance. BACK: Nontender without deformity or crepitance. No flank tenderness. NEURO: AOx3. Motor functions grossly nonfocal SKIN: No rash or erythema of visible areas Initial Vital Signs Initial Vital Signs: Vital Signs Temperature 97 F L 10/29/24 23:24 Pulse Rate 62 10/29/24 23:24 Respiratory Rate 18 10/29/24 23:24 Blood Pressure 102/51 L 10/29/24 23:24 Pulse Oximetry 96 10/29/24 23:24 Oxygen Delivery Method Room Air 10/29/24 23:24 Course Orders Ordered: Discontinued Medications Cephalexin HCl (Cephalexin 250 Mg Capsule) 500 mg PO NOW ONE Stop: 10/30/24 03:55 Last Admin: 10/30/24 03:59 Dose: 500 mg Documented By: MARVA Vital Signs Vital signs: Vital Signs - 8 hr 10/29/24 23:24 10/30/24 03:20 10/30/24 03:20 Temperature 97 F L Pulse Rate 62 68 Respiratory Rate 18 Blood Pressure 102/51 L 97/54 L Pulse Oximetry 96 97 Oxygen Delivery Method Room Air Room Air MDM - Skin/Abscess/Foreign Bdy MDM Narrative Medical decision making narrative: 73-year-old male with history of medial thigh redness, some component of itching, non urticarial appearance, treated for cellulitis for similar rash 2019 with cephalexin successfully. History of diabetes, we will hold exposure to steroid for now. DDx consider tinea cruris but seems too distal inmedial thighs, not up into scrotal crease areas. Consider urticaria but no plaques, not terrible itchy. Consider zoster but is bilateral and non dermatomal in distribution. No follicular skin abscess obvius either leg. Appearance not consistent with venous thrombosis. Consider bilateral thigh cellulitis as he had similar rash 2019 that was responsive to cephalexin course antibiotics. Cephalexin 1st dose now, prescription sent to his pharmacy. Wound check advised in 2 days. Return precautions discussed Discharge Plan Departure Patient Disposition: Home Clinical Impression: Cellulitis Instructions: DI for Cellulitis -- Adult, DI for Atopic Dermatitis-Child Activity Restrictions/Additional Instructions: Red rash right thigh and left thigh, patchy quality, without vesicles doubt shingles, without urticaria doubt allergic reaction, similar to prior 2019 cellulitis that was successfully treated with cephalexin course of the antibiotic. First dose cephalexin given in the emergency department, prescription for 7 day course sent to your pharmacy. Take antibiotics as prescribed. Wound check advised with your regular doctor in the next couple of days. Return to this/nearest emergency department for any change worsening symptoms or any concerns prior. Thank you for allowing our team to evaluate you today. Prescriptions: New cephalexin 500 mg capsule 500 mg PO QID 7 Days Qty: 28 0RF No Action omeprazole 20 mg capsule,delayed release(DR/EC) 20 mg PO DAILY (DME) Contour Test Strips 0 .Route .MEDSUPPLY Qty: 100 0RF Rx Instructions: Use daily as directed to monitor blood glucose. enalapril maleate 20 mg tablet 20 mg PO BID Qty: 30 0RF (DME) Contour Test Strips Strip See Rx Instructions .Route Qty: 200 11RF Rx Instructions: use up to 4 times daily to monitor blood sugar as directed clobetasol 0.05 % solution 1 applic topical BID Qty: 50 3RF gabapentin 600 mg tablet 600 mg PO .five tablets daily Qty: 450 1RF Rx Instructions: The patient takes a total of 5 tablets daily hydrochlorothiazide 25 mg tablet 25 mg PO DAILY Qty: 90 3RF Jardiance 25 mg tablet 25 mg PO DAILY Qty: 90 3RF semaglutide 0.25 mg or 0.5 mg (2 mg/3 mL) pen injector 0.5 mg SUBCUT QWEEK Qty: 3 3RF atorvastatin 10 mg tablet 10 mg PO QPM Qty: 90 3RF amlodipine 5 mg tablet 5 mg PO DAILY Qty: 90 3RF tamsulosin 0.4 mg capsule 0.4 mg PO DAILY Qty: 90 3RF tacrolimus 0.1 % ointment 1 applic topical BID Qty: 60 0RF Rx Instructions: apply small amount to area for two weeks metformin 500 mg tablet extended release 24 hr 1,000 mg PO QPM Qty: 180 3RF clobetasol 0.05 % shampoo topical hydrocortisone 2.5 % cream 1 applic TOP BID PRN (Reason: Hemorrhoids) Qty: 60 1RF hydrocodone-acetaminophen 7.5-325 mg tablet 1 tab PO .EVENING PRN (Reason: pain) Qty: 14 0RF Rx Instructions: Take one tablet each evening as needed for neck pain (DME) disabled parking See Rx Instructions .ROUTE .MEDSUPPLY Qty: 1 0RF Rx Instructions: I find this patient to be medically disabled and qualified for Disabled Parking as indicated, and signed, on the Accompanying Disabled Parking Application for individuals. doxycycline hyclate 100 mg capsule 100 mg PO BID Qty: 20 0RF acetaminophen [Tylenol] 325 mg capsule 650 mg PO QID PRN (Reason: pain) Qty: 60 0RF Referrals: Cas Marin MD [Primary Care Provider] - Stand Alone Forms: Patient Portal/API/Survey
[2024-10-30] MEDS: cephALEXin 250 MG CAPSULE 500 MG PO (03:59)
[2024-10-30 04:00] VITALS: PULSE 64; O2SAT 93
[2024-10-30 04:02] VITALS: BP 108/54; PULSE 79; RESP 20; O2SAT 96
== END 2024-10-30 04:08 | disposition home or self-care (01) ==
PROVIDERS: Emergency Provider Emergency Medicine; PCP Family Medicine
DX: L03.116 Cellulitis of left lower limb (principal); L03.115 Cellulitis of right lower limb
CPT/HCPCS: 99283

== ENCOUNTER 2024-10-31 10:37 | Inpatient (IN) | payer MEDICARE, OTHER, SELFPAY ==
[2023-07-02 13:24] VITALS: BMI 31.9
[2024-10-31] VITALS (8 sets, daily range): BP systolic 89–155; BP diastolic 53–79; PULSE 59–75; RESP 13–20; TEMP 35.9–36.6; O2SAT 93–99; BMI 28.1
--- NOTE | 2024-10-31 11:01 | DI.RAD.S_ITS ---
PROCEDURE: XR CHEST 1V INDICATIONS: suspected sepsis TECHNIQUE: One view of the chest was acquired. COMPARISON: [facility], CR, XR CHEST 2V, 06/10/2024, 8:12. [facility], CR, XR CHEST 2V, 09/14/2023, 9:31. FINDINGS: Surgical changes and devices: None. Lungs and pleura: Lungs are clear. No pleural effusions or pneumothorax. Mediastinum: Mediastinal contours appear normal. Heart size is normal. Bones and chest wall: No suspicious bony lesions. Overlying soft tissues appear unremarkable. IMPRESSION: No acute cardiopulmonary abnormality is seen. Dictated by: Rogerio Smith M.D. on 10/31/2024 at 11:17 Approved by: Rogerio Smith M.D. on 10/31/2024 at 11:18
--- NOTE | 2024-10-31 11:15 | EKG_ITS ---
[address] [address] Test Date: 2024-10-31 Pat Name: Ryland Quevedo Department: [facility] Room: Gender: Male Director Of Teaching And Learning: SHANA : 1950 Requested By: Order Number: [id number] Reading MD: Callum Cazares Measurements Intervals [place] Rate: 62 P: 124 MS: 160 QRS: -26 QRSD: 100 T: 18 QT: 402 QTc: 408 Interpretive Statements Unusual P axis, NSR Possible Anterior infarct , age undetermined Electronically Signed On 10-31-2024 13:30:16 PST by Callum Cazares
[2024-10-31] MEDS: SODIUM CHLORIDE 0.9% 1,000 ML 1000 ML IV (11:25)
[2024-10-31 11:31] LABS: Add Manual Diff / Slide Review NO; Basophils Absolute Auto 100 /uL (0-100); Basophils Percent Auto 1.1 % (0-2); Eosinophils Absolute Auto 200 /uL (0-450); Eosinophils Percent Auto 2.9 % (2-4); Hematocrit 47.7 % (41-53); Hemoglobin 15.7 g/dL (13.5-17.5); Lymphocytes Absolute Auto 1400 /uL (1100-4500); Lymphocytes Percent Auto 17.5 % (25-40); Mean Corpuscular HGB Conc 32.8 % (30-36); Mean Corpuscular Hemoglobin 27.9 PG (26-34); Mean Corpuscular Volume 85.1 fL (80-100); Monocytes Absolute Auto 600 /uL (0-900); Monocytes Percent Auto 7.4 % (3-14); Neutrophils Absolute Auto 5700 /uL (1500-7000); Neutrophils Percent Auto 71.1 % (50-75); Platelet Count 226 X10^3/uL (150-400); Red Blood Cell Count 5.61 X10^6/uL (4.5-5.9); Red Cell Distribution Width 14.3 % (11.6-14.8)
[2024-10-31 11:35] LABS: INR 1.1 (0.9-1.3)
[2024-10-31 11:38] LABS: PTT Partial Thromboplastin Tim 46 SECONDS (25.1-36.5)
[2024-10-31 11:40] LABS: Alanine Aminotransferase 40 IU/L (<50); Albumin 4.5 g/dL (3.5-5.0); Albumin Globulin Ratio 1.3 (1.0-2.8); Alkaline Phosphatase 81 U/L (38-126); Aspartate Aminotransferase 47 IU/L (17-59); BUN Creatinine Ratio 24.1 (6-22); Bilirubin Total 0.6 mg/dL (0.2-1.3); Blood Urea Nitrogen 39 mg/dL (9-20); Calcium 9.6 mg/dL (8.4-10.2); Carbon Dioxide 21 mmol/L (22-32); Chloride 101 mmol/L (98-107); Estimated Glomerular Filt Rate 44 mL/min (>60); Globulin 3.6 g/dL (1.7-4.1); Glucose 179 mg/dL (80-110); HEMOLYSIS 20 (0-50); Lactate (Lactic Acid) 1.6 mmol/L (0.7-2.1); Lipase 56 U/L (23-300); Potassium 4.7 mmol/L (3.4-5.1); Sodium 136 mmol/L (137-145); Total Protein 8.1 g/dL (6.3-8.2)
--- NOTE | 2024-10-31 11:47 | ED_ITS ---
HPI - Skin/Abscess/Foreign Bdy General Chief complaint: Skin/Abscess/Foreign Body Stated complaint: Sent from , make sure he's not Septic Time Seen by Provider: 10/31/24 11:15 Mode of arrival: Wheelchair History of Present Illness HPI narrative: Patient is a 73-year-old male history hypertension hyperlipidemia diabetes presenting today with worsening rash. He was seen evaluated here October 30. He initially had a rash between medial thighs right greater than left with patchy erythematous areas. Was discharged home on p.o. Keflex. Patient presents today with worsening rash left leg it is gone all the way up into the buttock area he was hypotensive. Blood pressure improved with IV fluids. He was afebrile he has had this happened before in 2019. He denies any chest pain or shortness of breath Related Data Home Medications Medication Instructions Recorded Confirmed amlodipine 5 mg tablet 5 mg PO 169910/31/24 10/31/24 clobetasol 0.05 % scalp solution 1 applic topical BID PRN rash 10/31/24 10/31/24 gabapentin 600 mg tablet 1,200 mg PO BID 10/31/24 10/31/24 hydrochlorothiazide 25 mg tablet 25 mg PO 169910/31/24 10/31/24 metformin 500 mg tablet,extended 1,000 mg PO BID 10/31/24 10/31/24 release 24 hr tamsulosin 0.4 mg capsule 0.4 mg PO 169910/31/24 10/31/24 Previous Rx's Medication Instructions Recorded Contour Test Strips #100 ea 12/25/19 disabled parking #1 ea 01/27/24 enalapril maleate 20 mg tablet 20 mg PO BID #30 tabs 02/08/24 blood sugar diagnostic (Contour #200 ea 03/20/24 Test Strips) empagliflozin 25 mg tablet 25 mg PO DAILY #90 tabs 05/25/24 hydrocodone 7.5 mg-acetaminophen 1 tab PO .EVENING PRN pain #14 tabs 09/07/24 325 mg tablet hydrocortisone 2.5 % topical cream 1 applic topical BID PRN 09/07/24 Hemorrhoids #60 grams atorvastatin 10 mg tablet 10 mg PO QPM #90 tabs 10/19/24 cephalexin 500 mg capsule 500 mg PO QID 7 days #28 caps 10/30/24 Allergies Allergy/AdvReac Type Severity Reaction Status Date / Time Sulfa (Sulfonamide Allergy Severe BLISTER, Verified 10/31/24 10:57 Antibiotics) skin [SULFA (SULFONAMIDE comes off ANTIBIOTICS)] my legs latex [LATEX] Allergy Mild SKIN Verified 10/31/24 10:57 IRRITATION amoxicillin [AMOXICILLIN] AdvReac Severe Makes my Verified 10/31/24 10:57 skin crawl clavulanic acid AdvReac Severe AUGMENTIN/V Verified 10/31/24 10:57 [CLAVULANIC ACID] OMITING Penicillins [PENICILLINS] AdvReac Severe NAUSEA/VOMI Verified 10/31/24 10:57 TING ciprofloxacin [CIPROFLOXACIN] AdvReac Intermediate MADE PT Verified 10/31/24 10:57 FEEL RUMMY/NAUSEA erythromycin base AdvReac Intermediate SKIN Verified 10/31/24 10:57 [ERYTHROMYCIN BASE] CRAWLING doxycycline AdvReac Gastrointestinal Verified 10/31/24 10:57 Upset Patient History Medical History Trigger finger Anal fissure (02/2018) Left sided sciatica Prepatellar bursitis of right knee Internal hemorrhoids History of COVID-19 Peripheral neuropathy Spinal stenosis COPD (chronic obstructive pulmonary disease) Lumbar disc herniation with radiculopathy Anxiety Degenerative arthritis of lumbar spine Inflamed internal hemorrhoid (02/2018) BPH (benign prostatic hyperplasia) GERD (gastroesophageal reflux disease) Controlled type 2 diabetes mellitus without complication (04/30/16) Tear of rotator cuff (09/19/14) Essential hypertension Surgical History History of back surgery Hx of colonoscopy (12/03/23) S/p bilateral blepharoplasty (11/04/23) S/p bilateral blepharoplasty (03/22/23) History of lumbar spinal fusion (06/20/21) History of lumbar fusion (02/01/19) Hx of microdiscectomy (07/01/18) Hx of hand surgery (~2004) Status post epidural steroid injection H/O colonoscopy (07/08/15) History of elbow surgery H/O sinus surgery (2003) History of sebaceous cyst (2000) Hx of inguinal hernia surgery (1996) Status post laminectomy Family History Father [place] (myocardial infarction) Grandmother Diabetes mellitus Mother Lymphoma Grandfather Colon cancer Sister Bladder cancer Social History marital status: details: Pt. lives with adult son and granddaughter household members: family lives independently: Yes occupational status: employed Smoking Status: Former smoker alcohol intake: never substance use type: does not use Smoking Status: Former smoker alcohol intake frequency: holidays/special occasions only Alcohol type: beer Exam Initial Vital Signs Initial Vital Signs: Vital Signs Temperature 97.6 F 10/31/24 10:57 Pulse Rate 64 10/31/24 10:57 Respiratory Rate 15 10/31/24 10:57 Blood Pressure 89/54 L 10/31/24 10:57 Pulse Oximetry 95 10/31/24 10:57 Oxygen Delivery Method Room Air 10/31/24 10:57 GENERAL: Alert 73-year-old male and in no acute distress. HEENT: Head atraumatic,EOMI, pupils reactive, face symmetric, moist mucous membranes CARDIOVASCULAR: Regular rate and rhythm without murmurs, rubs or gallops. RESPIRATORY: Breath sounds equal bilaterally, no wheezes rales or rhonchi. ABDOMEN: Soft, nontender. Normoactive bowel sounds all 4 quadrants. No guarding or rebound. EXTREMITIES: Normal range of motion, no clubbing or edema. Neurovascularly intact NEUROLOGICAL: Alert and oriented x4.Normal gait and speech. Cranial nerves II through XII grossly intact. SKIN: Medial thigh erythema does extensive erythema on the right side however the left side now extends posterior thigh and up into the buttock region significantly worse than couple days. No vesicles blanchable no abscess Course Orders Ordered: ED Orders 10/31/24 11:01 XR chest 1V Stat EKG-12 Lead Stat 10/31/24 11:07 Blood Culture Stat Complete Blood Count AUTO DIFF Stat Comprehensive Metabolic Panel Stat Lactate (Lactic Acid) Stat Lipase Stat PTT Partial Thromboplastin [place] Stat Procalcitonin Stat Prothrombin Time INR Stat 10/31/24 13:27 Urine Microscopic Stat Acetaminophen (Acetaminophen 325 Mg Tablet) 650 mg PO Q6H PRN PRN Reason: Fever/Mild Pain (1-3) Hydrocodone Bitart/Acetaminophen (Hydrocodone/Acet 5/325 Tablet) 1 tab PO Q4H PRN PRN Reason: Pain, Moderate (4-6) Albuterol (Albuterol 2.5 Mg/3 Ml Neb (Adult)) 2.5 mg INH [id number] PRN PRN Reason: Shortness Of Breath Amlodipine Besylate (Amlodipine 5 Mg Tablet) 5 mg PO 1700 [facility] Atorvastatin Calcium (Atorvastatin 20 Mg Tablet) 10 mg PO BEDTIME [facility] Dextrose (Dextrose 50 % In Water 25 Gm/50 Ml Syringe) 12.5 gm IV PRN PRN PRN Reason: Hypoglycemia Enoxaparin Sodium (Enoxaparin 40 Mg/0.4 Ml Syringe) 40 mg SUBCUT DAILY LUIS M Gabapentin (Gabapentin 600 Mg Tablet) 1,200 mg PO BID [facility] Ceftriaxone Sodium 1,000 mg/ (Sodium Chloride) 100 mls @ 200 mls/hr IV Q24H LUIS M Vancomycin HCl (Vancomycin) 1,250 mg in 250 mls @ 250 mls/hr IV Q24H [facility] Insulin Human Lispro (Insulin Lispro 100 Unit/Ml 3ml Vial) 0 unit SUBCUT ACHS [facility]; Protocol Last Admin: 10/31/24 17:48 Dose: Not Given Documented By: CLL Naloxone HCl (Naloxone 0.4 Mg/Ml Vial) 0.2 mg IV Q2MIN PRN PRN Reason: Opiate Reversal Ondansetron HCl (Ondansetron 4 Mg/2 Ml Inj) 4 mg IV NOW PRN PRN Reason: Nausea And Vomiting Ondansetron HCl (Ondansetron 4 Mg Odt) 4 mg SL NOW PRN PRN Reason: Nausea And Vomiting Ondansetron HCl (Ondansetron 4 Mg/2 Ml Inj) 4 mg IV Q8HR PRN PRN Reason: Nausea And Vomiting Tamsulosin HCl (Tamsulosin 0.4 Mg Capsule) 0.4 mg PO 1700 [facility] Vancomycin HCl (Vancomycin Per Pharmacy) 1 request MISC NOW PRN PRN Reason: per protocol Vancomycin HCl (Vancomycin Trough) 1 request MISC NOW ONE Stop: 11/03/24 12:31 Discontinued Medications Gabapentin (Gabapentin 600 Mg Tablet) 1,200 mg PO NOW ONE Stop: 10/31/24 15:07 Last Admin: 10/31/24 15:12 Dose: 1,200 mg Documented By: HW Sodium Chloride (Normal Saline 0.9%) 1,000 mls @ 1,000 mls/hr IV BOLUS ONE Stop: 10/31/24 12:00 Last Infusion: 10/31/24 12:22 Dose: Infused Documented By: Admin: 10/31/24 11:25 Dose: 1,000 mls/hr Documented By: LARISSA Ceftriaxone Sodium 1,000 mg/ (Sodium Chloride) 100 mls @ 200 mls/hr IV NOW ONE Stop: 10/31/24 12:03 Last Infusion: 10/31/24 12:53 Dose: Infused Documented By: Admin: 10/31/24 12:21 Dose: 200 mls/hr Documented By: JUMANA Vancomycin HCl/Dextrose (Vancomycin) 1,500 mg in 300 mls @ 200 mls/hr IV NOW ONE Stop: 10/31/24 13:31 Last Admin: 10/31/24 12:57 Dose: 200 mls/hr Documented By: JUMANA Dextrose (D10w) 100 mls @ 999 mls/hr IV PRN PRN PRN Reason: Hypoglycemia Insulin Glargine (Insulin Glargine 100 Unit/Ml 3ml Pen) 10 unit SUBCUT BEDTIME LUIS M Vital Signs Vital signs: Vital Signs - 8 hr 10/31/24 11:18 10/31/24 11:30 10/31/24 11:30 Pulse Rate 59 L 60 60 Respiratory Rate 15 14 14 Blood Pressure 95/54 L 91/53 L 91/53 L Pulse Oximetry 94 93 93 Oxygen Delivery Method Room Air Room Air Room Air 10/31/24 12:00 10/31/24 12:30 Pulse Rate 67 61 Respiratory Rate 16 16 Blood Pressure 122/65 128/62 Pulse Oximetry 96 96 Oxygen Delivery Method Room Air Room Air MDM - Skin/Abscess/Foreign Bdy Lab Data 10/31/24 11:07 10/31/24 11:07 Labs: Lab Results 10/31/24 10/31/24 Range/Units 11:07 13:27 WBC 8.0 (4.5-11.0) X10^3/uL RBC 5.61 (4.5-5.9) X10^6/uL Hgb 15.7 (13.5-17.5) g/dL Hct 47.7 (41-53) % MCV 85.1 (80-100) fL MCH 27.9 (26-34) PG MCHC 32.8 (30-36) % RDW 14.3 (11.6-14.8) % Plt Count 226 (150-400) X10^3/uL Neut % (Auto) 71.1 (50-75) % Lymph % (Auto) 17.5 L (25-40) % Elk % (Auto) 7.4 (3-14) % Eos % (Auto) 2.9 (2-4) % Baso % (Auto) 1.1 (0-2) % Neut # (Auto) 5700 (6776-7863) /uL Lymph # (Auto) 1400 (3282-5691) /uL Elk # (Auto) 600 (0-900) /uL Eos # (Auto) 200 (0-450) /uL Baso # (Auto) 100 (0-100) /uL PT 12.0 (9.4-12.5) SECONDS INR 1.1 (0.9-1.3) APTT 46 H (25.1-36.5) SECONDS Sodium 136 L (137-145) mmol/L Potassium 4.7 (3.4-5.1) mmol/L Chloride 101 (98-107) mmol/L Carbon Dioxide 21 L (22-32) mmol/L BUN 39 H (9-20) mg/dL Creatinine 1.62 H (0.66-1.25) mg/dL Estimated GFR 44 L (>60) mL/min BUN/Creatinine Ratio 24.1 H (6-22) Glucose 179 H (80-110) mg/dL Lactate 1.6 (0.7-2.1) mmol/L Calcium 9.6 (8.4-10.2) mg/dL Total Bilirubin 0.6 (0.2-1.3) mg/dL AST 47 (17-59) IU/L ALT 40 (<50) IU/L Alkaline Phosphatase 81 (38-126) U/L Total Protein 8.1 (6.3-8.2) g/dL Albumin 4.5 (3.5-5.0) g/dL Globulin 3.6 (1.7-4.1) g/dL Albumin/Globulin Ratio 1.3 (1.0-2.8) Lipase 56 (23-300) U/L Procalcitonin 0.108 (<0.5) ng/mL Urine RBC None seen (0-5/HPF) Urine WBC None seen (0-5/HPF) Ur Squamous Epith Cells None seen (0-5/HPF) Urine Bacteria None seen (None) Hyaline Casts 1-5/lpf (None) Ur Culture Indicated? Cult not indicated Vol Urine Centrifuged 10ml (spun) Urine Dip Bedside Urine Glucose 1000 mg/dl Bedside Urine Bilirubin - Negative Bedside Urine Ketone - Negative Urine Specific [place] 1.020 Bedside Urine Occult Blood - Negative Bedside Urine pH 6.0 Bedside Urine Protein - Negative Bedside Urine Urobilinogen - Negative Bedside Urine Nitrite - Negative Bedside Urine Leukocytes - Negative Esterase Imaging Data Chest x-ray: Radiologist's Impression: PROCEDURE: XR CHEST 1V INDICATIONS: suspected sepsis TECHNIQUE: One view of the chest was acquired. COMPARISON: [facility], CR, XR CHEST 2V, 06/10/2024, 8:12. [facility], CR, XR CHEST 2V, 09/14/2023, 9:31. FINDINGS: Surgical changes and devices: None. Lungs and pleura: Lungs are clear. No pleural effusions or pneumothorax. Mediastinum: Mediastinal contours appear normal. Heart size is normal. Bones and chest wall: No suspicious bony lesions. Overlying soft tissues appear unremarkable. IMPRESSION: No acute cardiopulmonary abnormality is seen. Dictated by: Rogerio Smith M.D. on 10/31/2024 at 11:17 ECG Data Attestation: I personally reviewed and interpreted this ECG as follows: Prior ECG tracings: available for review Interpretation: Normal sinus rhythm rate 62 ME interval 160 QRS 100 QTC 408 lead to his not picked up with no obvious ST elevations or depressions MDM Narrative Medical decision making narrative: MDM CC: Rash Complicating co-morbidities: Diabetes peripheral neuropathy hypertension hyperlipidemia osteoarthritis Medical records reviewed: Recent ED visit reviewed Differential considered: Sepsis cellulitis, Lana's gangrene necrotizing fasciitis Exam documented above, pertinent findings include: Patient has rash medial thigh which has progressed to the left posterior thigh and into the left buttock it is blanchable no vesicles Lab Test results independently reviewed as above. Pertinent findings: CBC WBC 8.0 hemoglobin 15 hematocrit 47 Lactate 1.6 Sodium 136 potassium 4.7 chloride 101 carbon dioxide 21 BUN 39 creatinine 1.62 previously 1.0 in 2023 Bilirubin liver enzymes within normal limits Independently reviewed EKG as above sinus rhythm Imaging studies independently reviewed: Chest x-ray no acute process Consultations: Dr. Marin accepts patient Treatments: IV fluids 1 L, Rocephin vancomycin blood cultures Re-evaluations: 12:30 Patient received 1 L of IV fluids and blood pressure quickly improved and remained stable. He did not require the full sepsis fluids. Cap refill less than 2 seconds Discussion: Patient 73-year-old male presenting today with worsening cellulitis. He presented septic shock with hypotension over blood pressure quickly improved with 1 L bolus. He actually has no leukocytosis or elevated lactate. He does have some LAZARO with a creatinine of 1.62 previously 1.0. He was empirically given Rocephin vancomycin for cellulitis. Low suspicion for necrotizing fasciitis due to low lactate and quick response to IV fluids. He does not have any groin or scrotum involvement some low suspicion for Lana's gangrene as well. Discharge Plan Departure Patient Disposition: Admitted As Inpatient Clinical Impression: Cellulitis, Sepsis Admit Date/Time: 10/31/24 13:53 Admit Provider: Cas Marin
[2024-10-31 11:57] LABS: Procalcitonin 0.108 ng/mL (<0.5)
[2024-10-31] MEDS: cefTRIAXone 1,000 MG in SODIUM CHLORIDE 0.9% 100 ML 200 MG IV (12:21)
[2024-10-31] MEDS: VANCOMYCIN 1,500 MG/300 ML PIGGYBACK 200 MG IV (12:57)
--- NOTE | 2024-10-31 13:01 | PC.NURSE ---
Pt states that it is mildly itchy and painful. pt seen here on 10/30 and dc with PO abx and rash has worsened since then. Bright red, patchy and raised rash observed on pt's bilateral inner thighs and buttocks. States 8/10 pain. A&Ox4.
--- NOTE | 2024-10-31 13:57 | PC.NURSE ---
Addendum entered by Arabella Baldwin R.N. 10/31/24 14:06: 1405 NEHEMIAH Corrales called for report. Pt to go upstairs with [employer] in stretcher. Pt a&ox4 at the time of transfer. Vanc running during transport to unit. Original Note: 0935 attempted to call report to NEHEMIAH Davila. Will call back. Room being cleaned.
[2024-10-31 14:09] LABS: Urine Volume 10mL (spun)
[2024-10-31 14:10] LABS: Bacteria Urine None Seen; Culture Indicated Urine Cult Not Indicated; Hyaline Casts Urine 1-5/LPF; RBC Urine None Seen (0-5/HPF); Squamous Epithelial Cell Urine None Seen (0-5/HPF); WBC Urine None Seen (0-5/HPF)
[2024-10-31] MEDS: GABAPENTIN 600 MG TABLET 1200 MG PO ×2 (15:12→20:27)
--- NOTE | 2024-10-31 17:44 | P.HP_ITS ---
History of Present Illness History of Present Illness Date Patient Seen: 10/31/24 Time Patient Seen: 17:45 Chief complaint: Rash Narrative: 73-year-old male with a history of diabetes peripheral neuropathy hypertension hyperlipidemia and osteoarthritis was sent to the emergency department from his primary care physician's office with hypotension low-grade fever and leg rash. Patient states over the last couple of days he has had more discomfort in his lower extremities both left and right. With redness. The rest progressively got worse. For the last 24 hours he began to not feel well. Had low-grade fevers and a rash. It started on his mid thigh area. Was seen and evaluated and started on an antibiotic. Over the progressive 24 hours things got worse. The rash got worse patient was seen in his primary care office and sent back to the emergency department where the rash has spread to both of his legs up into his groin area and on his buttock area. He was hypotensive and sent in the emergency department Emergency Department patient has a normal white blood cell count. Has elevated BUN and creatinine. His blood sugar was 179 his lactate was normal procalcitonin was normal urinalysis was negative. Patient has bilateral lower extremity redness to his anterior thighs groin area and up onto his buttock. [facility] Medical History Trigger finger Anal fissure (02/2018) Left sided sciatica Prepatellar bursitis of right knee Internal hemorrhoids History of COVID-19 Peripheral neuropathy Spinal stenosis COPD (chronic obstructive pulmonary disease) Lumbar disc herniation with radiculopathy Anxiety Degenerative arthritis of lumbar spine Inflamed internal hemorrhoid (02/2018) BPH (benign prostatic hyperplasia) GERD (gastroesophageal reflux disease) Controlled type 2 diabetes mellitus without complication (04/30/16) Tear of rotator cuff (09/19/14) Essential hypertension Surgical History History of back surgery Hx of colonoscopy (12/03/23) S/p bilateral blepharoplasty (11/04/23) S/p bilateral blepharoplasty (03/22/23) History of lumbar spinal fusion (06/20/21) History of lumbar fusion (02/01/19) Hx of microdiscectomy (07/01/18) Hx of hand surgery (~2004) Status post epidural steroid injection H/O colonoscopy (07/08/15) History of elbow surgery H/O sinus surgery (2003) History of sebaceous cyst (2000) Hx of inguinal hernia surgery (1996) Status post laminectomy Family History Father [place] (myocardial infarction) Grandmother Diabetes mellitus Mother Lymphoma Grandfather Colon cancer Sister Bladder cancer Social History marital status: details: Pt. lives with adult son and granddaughter household members: family lives independently: Yes occupational status: employed Smoking Status: Former smoker alcohol intake: never substance use type: does not use Meds Home Medications and Allergies Home Medications Medication Instructions Recorded Confirmed Type Contour Test Strips #100 ea 12/25/19 10/31/24 Rx disabled parking #1 ea 01/27/24 10/31/24 Rx enalapril maleate 20 mg tablet 20 mg PO BID #30 tabs 02/08/24 10/31/24 Rx blood sugar diagnostic (Contour #200 ea 03/20/24 10/31/24 Rx Test Strips) empagliflozin 25 mg tablet 25 mg PO DAILY #90 tabs 05/25/24 10/31/24 Rx hydrocodone 7.5 mg-acetaminophen 1 tab PO .EVENING PRN pain #14 tabs 09/07/24 10/31/24 Rx 325 mg tablet hydrocortisone 2.5 % topical cream 1 applic topical BID PRN 09/07/24 10/31/24 Rx Hemorrhoids #60 grams atorvastatin 10 mg tablet 10 mg PO QPM #90 tabs 10/19/24 10/31/24 Rx cephalexin 500 mg capsule 500 mg PO QID 7 days #28 caps 10/30/24 10/31/24 Rx amlodipine 5 mg tablet 5 mg PO 1700 10/31/24 10/31/24 History clobetasol 0.05 % scalp solution 1 applic topical BID PRN rash 10/31/24 10/31/24 History gabapentin 600 mg tablet 1,200 mg PO BID 10/31/24 10/31/24 History hydrochlorothiazide 25 mg tablet 25 mg PO 1700 10/31/24 10/31/24 History metformin 500 mg tablet,extended 1,000 mg PO BID 10/31/24 10/31/24 History release 24 hr tamsulosin 0.4 mg capsule 0.4 mg PO 1700 10/31/24 10/31/24 History Allergies Allergy/AdvReac Type Severity Reaction Status Date / Time Sulfa (Sulfonamide Allergy Severe BLISTER, Verified 10/31/24 10:57 Antibiotics) skin [SULFA (SULFONAMIDE comes off ANTIBIOTICS)] my legs latex [LATEX] Allergy Mild SKIN Verified 10/31/24 10:57 IRRITATION amoxicillin [AMOXICILLIN] AdvReac Severe Makes my Verified 10/31/24 10:57 skin crawl clavulanic acid AdvReac Severe AUGMENTIN/V Verified 10/31/24 10:57 [CLAVULANIC ACID] OMITING Penicillins [PENICILLINS] AdvReac Severe NAUSEA/VOMI Verified 10/31/24 10:57 TING ciprofloxacin [CIPROFLOXACIN] AdvReac Intermediate MADE PT Verified 10/31/24 10:57 FEEL RUMMY/NAUSEA erythromycin base AdvReac Intermediate SKIN Verified 10/31/24 10:57 [ERYTHROMYCIN BASE] CRAWLING doxycycline AdvReac Gastrointestinal Verified 10/31/24 10:57 Upset Exam Vital Signs (past 8 hours): - 10/31/24 10:57 10/31/24 11:18 10/31/24 11:30 Temperature 97.6 F Pulse Rate 64 59 L 60 Respiratory Rate 15 15 14 Blood Pressure 89/54 L 95/54 L 91/53 L Pulse Oximetry 95 94 93 Oxygen Delivery Method Room Air Room Air Room Air 10/31/24 11:30 10/31/24 12:00 10/31/24 12:30 Temperature Pulse Rate 60 67 61 Respiratory Rate 14 16 16 Blood Pressure 91/53 L 122/65 128/62 Pulse Oximetry 93 96 96 Oxygen Delivery Method Room Air Room Air Room Air 10/31/24 13:55 10/31/24 15:00 Temperature 98 F 96.6 F L Pulse Rate 63 75 Respiratory Rate 20 17 Blood Pressure 155/68 H 141/71 H Pulse Oximetry 99 99 Oxygen Delivery Method Room Air Oxygen Delivery Method Room Air Narrative Exam Narrative: Gen.: Alert good historian HEENT: Pupils equal round and reactive or mucosa is moist Cardio: S1-S2 regular rate and rhythm Respiratory: Normal respiratory effort lungs are clear Abdomen: Soft nontender no rebound or guarding Extremities: Patient and has some redness to his anterior thigh in his inguinal area non his buttock. Objective Labs 10/31/24 11:07 10/31/24 11:07 Labs: Laboratory Results - last 24 hr 10/31/24 10/31/24 11:07 13:27 WBC 8.0 RBC 5.61 Hgb 15.7 Hct 47.7 MCV 85.1 MCH 27.9 MCHC 32.8 RDW 14.3 Plt Count 226 Neut % (Auto) 71.1 Lymph % (Auto) 17.5 L [place] % (Auto) 7.4 Eos % (Auto) 2.9 Baso % (Auto) 1.1 Neut # (Auto) 5700 Lymph # (Auto) 1400 [place] # (Auto) 600 Eos # (Auto) 200 Baso # (Auto) 100 PT 12.0 INR 1.1 APTT 46 H Sodium 136 L Potassium 4.7 Chloride 101 Carbon Dioxide 21 L BUN 39 H Creatinine 1.62 H Estimated GFR 44 L BUN/Creatinine Ratio 24.1 H Glucose 179 H Lactate 1.6 Calcium 9.6 Total Bilirubin 0.6 AST 47 ALT 40 Alkaline Phosphatase 81 Total Protein 8.1 Albumin 4.5 Globulin 3.6 Albumin/Globulin Ratio 1.3 Lipase 56 Procalcitonin 0.108 Urine RBC None seen Urine WBC None seen Ur Squamous Epith Cells None seen Urine Bacteria None seen Hyaline Casts 1-5/lpf Ur Culture Indicated? Cult not indicated Vol Urine Centrifuged 10ml (spun) Assessment & Plan Assessment and plan (1) Cellulitis: Status: Acute Plan Cellulitis patient with cellulitis. Patient had some hypotension in the emergency department he was not tachycardic or in respiratory distress and did not have a fever. Patient was started on antibiotics and given IV fluids. Patient had normal lactate and procalcitonin. Patient is on Jardiance and is known to be diabetic. I do not see any signs or concerns about deep infection such as gangrene or necrotizing fasciitis. Recommended admission to the hospital with IV antibiotics with Rocephin and vancomycin. We will stop his diabetes medication which may increase his risk of inguinal infections. We will monitor his white blood cell count temperature and blood pressure. Acute kidney injury. Patient has normal BUN creatinine at baseline. His kidney function has increased in the emergency department. Probably due to infection and hypotension. He was given a fluid bolus his blood pressure is now respond we will recheck his BUN and creatinine in the morning. Diabetes type 2. Patient's metformin Jardiance will be held. Patient will be started on insulin with insulin sliding scale. Will try to keep his blood sugars below 200. Provide him a diabetic diet. Peripheral neuropathy. Patient's gabapentin will be continued he takes 1200 mg twice a day. Hypertension his blood pressure is better we will gradually restart his blood pressure medication and monitor closely to prevent ongoing hypotension. Hyperlipidemia his cholesterol medication will be continued. Degenerative disc disease and spinal arthritis. Chronic and stable Disposition and plan inpatient full code DVT prophylaxis is written. Time-Based Coding :: [TOTAL MINUTES] spent with patient and on the chart (including review of chart, obtaining history, exam, reviewing outside data, placing orders, documenting exam and treatment plan, and counseling patient) on [DATE]. PROFEE Policy Director Document charge(s): Yes Charge Codes Initial inpatient/observation care: [id number]
--- NOTE | 2024-10-31 18:42 | PC.NURSE ---
Patient admitted to room 206 at 1530. His blood pressures are wnl and he has voided x1. Patient has a history of getting rashes and he also came into the ER for this. There are photographs of rash under nurses notes and on skin assessment. Rash is on pts inner thighs, back of upper legs, and buttocks. Area's are red and pink. He is alert and oriented x4, bs 182, ss insulin will start at hs. ws here around 630 to round on patient and write orders.
[2024-10-31 20:08] LABS: Hemoglobin A1C% w Est Avg Glu 8.6 % (4.0-6.0)
[2024-10-31] MEDS: ATORVASTATIN 20 MG TABLET 10 MG PO (20:27)
[2024-11-01] MEDS: diphenhydrAMINE 25 MG TABLET 50 MG PO ×3 (02:16→20:11)
[2024-11-01] MEDS: ACETAMINOPHEN 325 MG TABLET 650 MG PO (06:19)
[2024-11-01 07:32] LABS: Add Manual Diff / Slide Review NO; Basophils Absolute Auto 100 /uL (0-100); Basophils Percent Auto 1.2 % (0-2); Eosinophils Absolute Auto 200 /uL (0-450); Eosinophils Percent Auto 4.3 % (2-4); Hematocrit 43.4 % (41-53); Hemoglobin 14.3 g/dL (13.5-17.5); Lymphocytes Absolute Auto 1400 /uL (1100-4500); Lymphocytes Percent Auto 24.7 % (25-40); Mean Corpuscular HGB Conc 32.8 % (30-36); Mean Corpuscular Hemoglobin 27.9 PG (26-34); Mean Corpuscular Volume 85.1 fL (80-100); Monocytes Absolute Auto 400 /uL (0-900); Monocytes Percent Auto 7.4 % (3-14); Neutrophils Absolute Auto 3600 /uL (1500-7000); Neutrophils Percent Auto 62.4 % (50-75); Platelet Count 197 X10^3/uL (150-400); Red Blood Cell Count 5.11 X10^6/uL (4.5-5.9); Red Cell Distribution Width 14.2 % (11.6-14.8); White Blood Cell Count 5.8 X10^3/uL (4.5-11.0)
[2024-11-01 07:47] LABS: Alanine Aminotransferase 34 IU/L (<50); Albumin 3.8 g/dL (3.5-5.0); Albumin Globulin Ratio 1.2 (1.0-2.8); Alkaline Phosphatase 70 U/L (38-126); Aspartate Aminotransferase 37 IU/L (17-59); BUN Creatinine Ratio 30.7 (6-22); Bilirubin Total 0.4 mg/dL (0.2-1.3); Blood Urea Nitrogen 35 mg/dL (9-20); Calcium 9.2 mg/dL (8.4-10.2); Carbon Dioxide 21 mmol/L (22-32); Chloride 104 mmol/L (98-107); Estimated Glomerular Filt Rate > 60 mL/min (>60); Globulin 3.1 g/dL (1.7-4.1); Glucose 217 mg/dL (80-110); HEMOLYSIS 19 (0-50); Potassium 4.6 mmol/L (3.4-5.1); Sodium 136 mmol/L (137-145); Total Protein 6.9 g/dL (6.3-8.2)
--- NOTE | 2024-11-01 08:38 | P.PN_ITS ---
Subjective Subjective Date Patient Seen: 11/01/24 Time Patient Seen: 08:39 Interval history: Patient seen and evaluated this morning. Says he slept well last night. Still some leg thigh pain. He says rash is not better. Vital signs have improved. Blood pressure is normal throughout the night pulses normal. Temperature is okay. He is eating well. Complaining of some loose bowel movements. Skin rash bilateral thighs and up onto his buttock area. Re-evaluated today. Component of intertrigo and yeast infection as well. Exam Vital Signs (past 8 hours): Oxygen Delivery Method Room Air Oxygen Flow Rate 0 Narrative Exam Narrative: Gen.: [Alert and oriented x3 no apparent distress sitting in the chair eating breakfast] HEENT: Pupils equal round and reactive or mucosa is moist Cardio: [S1-S2 regular rate and rhythm no murmurs appreciated.] Respiratory: [Lungs are clear to auscultation no wheezes or crackles normal respiratory effort.] Abdomen: [Soft nontender no rebound or guarding no liver spleen enlargement no appreciable hernias] Extremities: Patient has no edema. Bilateral thigh redness irritation upper around his buttock on both legs some intertrigo. No signs of abscess formation no scrotal inflammation or signs of cellulitis or gangrene Objective Labs 11/01/24 07:10 11/01/24 07:10 Labs: Laboratory Results - last 24 hr 10/31/24 10/31/24 11/01/24 11:07 13:27 07:10 WBC 8.0 5.8 RBC 5.61 5.11 Hgb 15.7 14.3 Hct 47.7 43.4 MCV 85.1 85.1 MCH 27.9 27.9 MCHC 32.8 32.8 RDW 14.3 14.2 Plt Count 226 197 Neut % (Auto) 71.1 62.4 Lymph % (Auto) 17.5 L 24.7 L [place] % (Auto) 7.4 7.4 Eos % (Auto) 2.9 4.3 H Baso % (Auto) 1.1 1.2 Neut # (Auto) 5700 3600 Lymph # (Auto) 1400 1400 [place] # (Auto) 600 400 Eos # (Auto) 200 200 Baso # (Auto) 100 100 PT 12.0 INR 1.1 APTT 46 H Sodium 136 L 136 L Potassium 4.7 4.6 Chloride 101 104 Carbon Dioxide 21 L 21 L BUN 39 H 35 H Creatinine 1.62 H 1.14 Estimated GFR 44 L > 60 BUN/Creatinine Ratio 24.1 H 30.7 H Glucose 179 H 217 H Hemoglobin A1c 8.6 H Lactate 1.6 Calcium 9.6 9.2 Total Bilirubin 0.6 0.4 AST 47 37 ALT 40 34 Alkaline Phosphatase 81 70 Total Protein 8.1 6.9 Albumin 4.5 3.8 Globulin 3.6 3.1 Albumin/Globulin Ratio 1.3 1.2 Lipase 56 Procalcitonin 0.108 Urine RBC None seen Urine WBC None seen Ur Squamous Epith Cells None seen Urine Bacteria None seen Hyaline Casts 1-5/lpf Ur Culture Indicated? Cult not indicated Vol Urine Centrifuged 10ml (spun) [facility] Medical History Trigger finger Anal fissure (02/2018) Left sided sciatica Prepatellar bursitis of right knee Internal hemorrhoids History of COVID-19 Peripheral neuropathy Spinal stenosis COPD (chronic obstructive pulmonary disease) Lumbar disc herniation with radiculopathy Anxiety Degenerative arthritis of lumbar spine Inflamed internal hemorrhoid (02/2018) BPH (benign prostatic hyperplasia) GERD (gastroesophageal reflux disease) Controlled type 2 diabetes mellitus without complication (04/30/16) Tear of rotator cuff (09/19/14) Essential hypertension Surgical History History of back surgery Hx of colonoscopy (12/03/23) S/p bilateral blepharoplasty (11/04/23) S/p bilateral blepharoplasty (03/22/23) History of lumbar spinal fusion (06/20/21) History of lumbar fusion (02/01/19) Hx of microdiscectomy (07/01/18) Hx of hand surgery (~2004) Status post epidural steroid injection H/O colonoscopy (07/08/15) History of elbow surgery H/O sinus surgery (2003) History of sebaceous cyst (2000) Hx of inguinal hernia surgery (1996) Status post laminectomy Family History Father [place] (myocardial infarction) Grandmother Diabetes mellitus Mother Lymphoma Grandfather Colon cancer Sister Bladder cancer Social History marital status: details: Pt. lives with adult son and granddaughter household members: family lives independently: Yes occupational status: employed Smoking Status: Former smoker alcohol intake: never substance use type: does not use Assessment & Plan Assessment and plan (1) Cellulitis: Qualifiers: Site of cellulitis: buttock Qualified Code(s): L03.317 - Cellulitis of buttock Status: Acute Plan Cellulitis of bilateral thighs buttock area. Patient on ceftriaxone as well as vancomycin. Will continue with antibiotics. White blood cell counts normal blood pressure stable he is afebrile. I think there is a component of yeast infection as well and intertrigo. Will start him on oral Diflucan 200 mg once daily in addition to his antibiotics. Continue to check blood pressure and monitor white blood cell count in each additional days of IV antibiotics. Diabetes type 2. Lantus insulin will be started this morning. Insulin sliding scale for coverage his oral home hypoglycemic agents are continuing to be held. Blood sugars are not where they need to be. Made adjustments to insulin dosing today. Acute kidney injury. Kidney function is improved today. Due to dehydration and infection. Electrolytes are stable. Peripheral neuropathy continue with gabapentin Hypertension patient was hypotensive will reintroduce his antihypertensive medication his blood pressure is doing better Hyperlipidemia. Patient will be continued on his cholesterol medication Back pain with history of degenerative disc disease chronic and stable DVT prophylaxis Disposition and plan IV antibiotics continuing for 24-48 more hours anticipate discharge with home with oral antibiotics Time-Based Coding :: [TOTAL MINUTES] spent with patient and on the chart (including review of chart, obtaining history, exam, reviewing outside data, placing orders, documenting exam and treatment plan, and counseling patient) on [DATE]. PROFEE Instrument Shop Supervisor Document charge(s): Yes Charge Codes Subsequent inpatient/observation care: [id number]
[2024-11-01] MEDS: INSULIN GLARGINE 100 UNIT/ML 3ML PEN 30 UNIT SUBCUT (08:56)
[2024-11-01] MEDS: INSULIN LISPRO 100 UNIT/ML 3ML VIAL SUBCUT ×3 (09:00→20:25)
[2024-11-01] MEDS: ENOXAPARIN 40 MG/0.4 ML SYRINGE SUBCUT (09:03)
[2024-11-01 09:04] VITALS: BP 132/79; PULSE 64
[2024-11-01] MEDS: ENALAPRIL 5 MG TABLET 20 MG PO ×2 (09:04→20:11)
[2024-11-01] MEDS: GABAPENTIN 600 MG TABLET 1200 MG PO ×2 (09:06→20:12)
[2024-11-01] MEDS: HYDROCODONE/ACET 5/325 TABLET 1 TAB PO ×3 (09:23→21:17)
[2024-11-01] MEDS: FLUCONAZOLE 100 MG TABLET 200 MG PO (09:24)
[2024-11-01] MEDS: cefTRIAXone 1,000 MG in SODIUM CHLORIDE 0.9% 100 ML 200 MG IV (11:44)
[2024-11-01] MEDS: VANCOMYCIN 1,500 MG/300 ML PIGGYBACK 200 MG IV (12:59)
--- NOTE | 2024-11-01 13:32 | CM.DANOTE ---
Initial DCP Assessment Visit Note Reviewed EMR and team rounds for status updates. Met with pt at bedside to introduce self and role, pt was found to be alert/oriented, watching tv, in no apparent distress. Pt resides alone/independently in his own home here in [place], he does have someone that lives on his property that can help him as needed. Family will provide transport at d/c. Payor: Medicare PCP: Dr. Marin Pt is a 73 year-old M who prsented to the ED yesterday afternoon after his PCP sent him for further evaluation of a worsening rash. The rash had started in his thighs, then spread to his buttocks, however the right-side was worse. In the ED, he was found to be hypotensive, however did improve with IV fluids very quickly. He was dx with cellulites and and started on IV ABO's. DCP will continue to monitor for any further evolving needs for d/c, however no CM assistance needs are identified at this time. Discharge Planning/Care Management CM Discharge Assessment Start: 11/01/24 13:28 Freq: Status: Active Protocol: Document 11/01/24 13:28 DPL (Rec: 11/01/24 13:30 DPL [id number]) Discharge Planning Assessment Assigned Patent Counsel DILLON Tran Advance Directives? No Advance Directives on File No History Provided By Patient,Medical Record Has Patient been admitted in last 30 No days? Prior Living Arrangements House Household Members family Type of transporation used prior to Drives own vehicle admit Independent with ADL's Yes Is patient alert and oriented? Yes Comment N/A Clinicals Faxed No Patient/Family Preference OP PT Therapy Comment Patient lives alone, but has a friend that lives on his property that he indicated, can help him if needed. Discharge Plan Home Transportation Arrangement Friend Referrals Initiated None needed Review Status In Process Please Provide Date Initial DC 11/01/24 Assessment Was Performed
[2024-11-01 14:30] VITALS: PULSE 59
[2024-11-01 17:01] VITALS: BP 134/62; PULSE 63; RESP 14; TEMP 36.4; O2SAT 94
[2024-11-01] MEDS: AMLODIPINE 5 MG TABLET PO (17:09)
[2024-11-01] MEDS: TAMSULOSIN 0.4 MG CAPSULE PO (17:09)
[2024-11-01 20:11] VITALS: BP 142/63; PULSE 64
[2024-11-01] MEDS: ATORVASTATIN 20 MG TABLET 10 MG PO (20:12)
[2024-11-01 20:29] VITALS: BP 142/63; PULSE 64; RESP 18; TEMP 36.1; O2SAT 95
[2024-11-02 06:17] LABS: Add Manual Diff / Slide Review NO; Basophils Absolute Auto 100 /uL (0-100); Basophils Percent Auto 1.7 % (0-2); Eosinophils Absolute Auto 300 /uL (0-450); Eosinophils Percent Auto 4.7 % (2-4); Hematocrit 41.8 % (41-53); Hemoglobin 13.7 g/dL (13.5-17.5); Lymphocytes Absolute Auto 1600 /uL (1100-4500); Lymphocytes Percent Auto 26.9 % (25-40); Mean Corpuscular HGB Conc 32.8 % (30-36); Mean Corpuscular Hemoglobin 27.8 PG (26-34); Mean Corpuscular Volume 84.7 fL (80-100); Monocytes Absolute Auto 500 /uL (0-900); Monocytes Percent Auto 7.7 % (3-14); Neutrophils Absolute Auto 3600 /uL (1500-7000); Platelet Count 192 X10^3/uL (150-400); Red Blood Cell Count 4.93 X10^6/uL (4.5-5.9); Red Cell Distribution Width 14.1 % (11.6-14.8)
[2024-11-02 06:23] LABS: BUN Creatinine Ratio 30.6 (6-22); Blood Urea Nitrogen 34 mg/dL (9-20); Calcium 8.9 mg/dL (8.4-10.2); Carbon Dioxide 19 mmol/L (22-32); Chloride 107 mmol/L (98-107); Estimated Glomerular Filt Rate > 60 mL/min (>60); Glucose 159 mg/dL (80-110); HEMOLYSIS < 15 (0-50); Potassium 4.9 mmol/L (3.4-5.1); Sodium 136 mmol/L (137-145)
[2024-11-02 08:00] VITALS: BP 108/48; PULSE 60; RESP 16; TEMP 36.5; O2SAT 100
--- NOTE | 2024-11-02 08:20 | P.PN_ITS ---
Subjective Subjective Date Patient Seen: 11/02/24 Time Patient Seen: 08:21 Interval history: Patient seen and evaluated this morning. Patient is doing well. He says it was a rough night. Legs are starting to itch a little bit. Standing eating ambulating. Bowel movements are stable. Continuing with IV Rocephin and vancomycin. Started oral Diflucan yesterday for yeast. Blood sugars are better today with the Lantus. Cellulitis does look better anticipate needing more IV antibiotics. Exam Vital Signs (past 8 hours): Oxygen Delivery Method Room Air Oxygen Flow Rate 0 Narrative Exam Narrative: Gen.: Alert no apparent distress HEENT: Pupils equal round and reactive Cardio: [S1-S2 regular rate and rhythm no murmurs appreciated.] Respiratory: [Lungs are clear to auscultation no wheezes or crackles normal respiratory effort.] Abdomen: Soft nontender Extremities: Bilateral thigh medial aspect redness and irritation up onto his buttock. Improved since admission. Some intertrigo in the groin. Objective Labs 11/02/24 05:50 11/02/24 05:50 Labs: Laboratory Results - last 24 hr 11/02/24 05:50 WBC 6.0 RBC 4.93 Hgb 13.7 Hct 41.8 MCV 84.7 MCH 27.8 MCHC 32.8 RDW 14.1 Plt Count 192 Neut % (Auto) 59.0 Lymph % (Auto) 26.9 [place] % (Auto) 7.7 Eos % (Auto) 4.7 H Baso % (Auto) 1.7 Neut # (Auto) 3600 Lymph # (Auto) 1600 [place] # (Auto) 500 Eos # (Auto) 300 Baso # (Auto) 100 Sodium 136 L Potassium 4.9 Chloride 107 Carbon Dioxide 19 L BUN 34 H Creatinine 1.11 Estimated GFR > 60 BUN/Creatinine Ratio 30.6 H Glucose 159 H Calcium 8.9 PFSH Medical History Trigger finger Anal fissure (02/2018) Left sided sciatica Prepatellar bursitis of right knee Internal hemorrhoids History of COVID-19 Peripheral neuropathy Spinal stenosis COPD (chronic obstructive pulmonary disease) Lumbar disc herniation with radiculopathy Anxiety Degenerative arthritis of lumbar spine Inflamed internal hemorrhoid (02/2018) BPH (benign prostatic hyperplasia) GERD (gastroesophageal reflux disease) Controlled type 2 diabetes mellitus without complication (04/30/16) Tear of rotator cuff (09/19/14) Essential hypertension Surgical History History of back surgery Hx of colonoscopy (12/03/23) S/p bilateral blepharoplasty (11/04/23) S/p bilateral blepharoplasty (03/22/23) History of lumbar spinal fusion (06/20/21) History of lumbar fusion (02/01/19) Hx of microdiscectomy (07/01/18) Hx of hand surgery (~2004) Status post epidural steroid injection H/O colonoscopy (07/08/15) History of elbow surgery H/O sinus surgery (2003) History of sebaceous cyst (2000) Hx of inguinal hernia surgery (1996) Status post laminectomy Family History Father [place] (myocardial infarction) Grandmother Diabetes mellitus Mother Lymphoma Grandfather Colon cancer Sister Bladder cancer Social History marital status: details: Pt. lives with adult son and granddaughter household members: family lives independently: Yes occupational status: employed Smoking Status: Former smoker alcohol intake: never substance use type: does not use Assessment & Plan Assessment and plan (1) Cellulitis: Qualifiers: Site of cellulitis: buttock Qualified Code(s): L03.317 - Cellulitis of buttock Status: Acute Plan Cellulitis of bilateral thighs buttock area. Continue with IV antibiotics. Will discharge tomorrow afternoon after ceftriaxone and vancomycin dose with oral medication. Patient improving. Patient is has some intertrigo of the groin. Continue with oral Diflucan. Diabetes type 2. Blood sugars are doing better today continue with Lantus Lantus and insulin sliding scale. We will have to make adjustments to his oral medication at home patient will most likely need to be long-term Lantus insulin at home which he has been reluctant resistant to but I think he is agreement with this. Acute kidney injury. Kidney function out baseline. Peripheral neuropathy continue with gabapentin Hypertension patient patient's blood pressure has continued to elevate. Will starting him back on his home blood pressure medication adding in hydrochlorothiazide today. Hyperlipidemia. Patient will be continued on his cholesterol medication Back pain with history of degenerative disc disease chronic and stable DVT prophylaxis Disposition and plan IV antibiotics today and tomorrow home tomorrow afternoon with oral antibiotics. Time-Based Coding :: [TOTAL MINUTES] spent with patient and on the chart (including review of chart, obtaining history, exam, reviewing outside data, placing orders, documenting exam and treatment plan, and counseling patient) on [DATE]. PROFEE Motor Vehicle Salesperson Document charge(s): Yes Charge Codes Subsequent inpatient/observation care: [id number]
[2024-11-02] MEDS: GABAPENTIN 600 MG TABLET 1200 MG PO ×2 (08:44→21:59)
[2024-11-02] MEDS: FLUCONAZOLE 100 MG TABLET 200 MG PO (08:44)
[2024-11-02] MEDS: HYDROCODONE/ACET 5/325 TABLET 1 TAB PO ×3 (08:44→21:58)
[2024-11-02] MEDS: ENOXAPARIN 40 MG/0.4 ML SYRINGE SUBCUT (08:45)
[2024-11-02] MEDS: INSULIN GLARGINE 100 UNIT/ML 3ML PEN 30 UNIT SUBCUT (08:50)
[2024-11-02] MEDS: INSULIN LISPRO 100 UNIT/ML 3ML VIAL SUBCUT ×2 (08:51→17:48)
[2024-11-02 08:56] VITALS: BP 108/48; PULSE 60
[2024-11-02] MEDS: cefTRIAXone 1,000 MG in SODIUM CHLORIDE 0.9% 100 ML 200 MG IV (12:36)
--- NOTE | 2024-11-02 12:54 | CM.DPC ---
DCP Cont. Reviewed EMR and team rounds for status updates. Pt has been medically cleared for home d/c, family will provide transport home. No further CM d/c needs identified at this time.
[2024-11-02] MEDS: VANCOMYCIN 1,500 MG/300 ML PIGGYBACK 200 MG IV (13:50)
[2024-11-02 17:35] VITALS: BP 133/67; PULSE 65; O2SAT 97
[2024-11-02] MEDS: AMLODIPINE 5 MG TABLET PO (17:49)
[2024-11-02] MEDS: hydroCHLOROthiazide 25 MG TABLET PO (17:49)
[2024-11-02] MEDS: TAMSULOSIN 0.4 MG CAPSULE PO (17:49)
[2024-11-02] MEDS: CALCIUM CARBONATE 500 MG TAB 1000 MG PO (18:08)
[2024-11-02 20:00] VITALS: BP 124/65; PULSE 55; RESP 18; TEMP 36.3; O2SAT 98
[2024-11-02] MEDS: ATORVASTATIN 20 MG TABLET 10 MG PO (21:58)
[2024-11-02 21:59] VITALS: BP 124/65; PULSE 55
[2024-11-02] MEDS: ENALAPRIL 5 MG TABLET 20 MG PO (21:59)
[2024-11-03 03:00] VITALS: BP 128/71; PULSE 59
[2024-11-03 06:40] LABS: BUN Creatinine Ratio 31.9 (6-22); Blood Urea Nitrogen 30 mg/dL (9-20); Calcium 9.4 mg/dL (8.4-10.2); Carbon Dioxide 19 mmol/L (22-32); Chloride 107 mmol/L (98-107); Estimated Glomerular Filt Rate > 60 mL/min (>60); Glucose 142 mg/dL (80-110); HEMOLYSIS < 15 (0-50); Potassium 4.9 mmol/L (3.4-5.1); Sodium 134 mmol/L (137-145)
[2024-11-03 08:00] VITALS: BP 145/74; PULSE 55; RESP 17; TEMP 36.6; O2SAT 98
--- NOTE | 2024-11-03 09:08 | PM.DS.IH.1 ---
History of Present Illness History of Present Illness Chief complaint: Rash Narrative: 73-year-old male with a history of diabetes peripheral neuropathy hypertension hyperlipidemia and osteoarthritis was sent to the emergency department from his primary care physician's office with hypotension low-grade fever and leg rash. Patient states over the last couple of days he has had more discomfort in his lower extremities both left and right. With redness. The rest progressively got worse. For the last 24 hours he began to not feel well. Had low-grade fevers and a rash. It started on his mid thigh area. Was seen and evaluated and started on an antibiotic. Over the progressive 24 hours things got worse. The rash got worse patient was seen in his primary care office and sent back to the emergency department where the rash has spread to both of his legs up into his groin area and on his buttock area. He was hypotensive and sent in the emergency department Emergency Department patient has a normal white blood cell count. Has elevated BUN and creatinine. His blood sugar was 179 his lactate was normal procalcitonin was normal urinalysis was negative. Patient has bilateral lower extremity redness to his anterior thighs groin area and up onto his buttock. Discharge Providers Provider Date of admission: 10/31/24 13:53 Discharge Date: 11/03/24 Primary care physician: Cas Marin MD Consults: 10/31/24 17:04 Consult to Discharge Planning Routine Comment: Discharge provider: Cas Marin MD Summary Hospital Course Discharge Diagnosis: Lower extremity cellulitis and buttock Type 2 diabetes Acute kidney injury Peripheral neuropathy Hypertension Hyperlipidemia Back pain Hospital Course: 73-year-old male with a history of diabetes peripheral neuropathy hypertension hyperlipidemia and osteoarthritis was sent to the emergency department from his primary care physician's office with hypotension low-grade fever and leg rash. Patient states over the last couple of days he has had more discomfort in his lower extremities both left and right. With redness. The rest progressively got worse. For the last 24 hours he began to not feel well. Had low-grade fevers and a rash. It started on his mid thigh area. Was seen and evaluated and started on an antibiotic. Over the progressive 24 hours things got worse. The rash got worse patient was seen in his primary care office and sent back to the emergency department where the rash has spread to both of his legs up into his groin area and on his buttock area. He was hypotensive and sent in the emergency department Patient was admitted to the hospital with IV antibiotics IV fluids. Patient's blood pressure normalized kidney function improved. Patient received ceftriaxone vancomycin. Ultimately was also started on Diflucan for intertrigo. Rash encompassed his bilateral lower extremities in her thigh area and up on his buttocks. There was no signs of abscess. No sign of great gangrene. Patient had improvement of symptoms over the ensuing hospital stay. At the time of discharge his blood sugars were well controlled he was afebrile blood pressure was stable he was eating and ambulating and having no concerns with bowel movements Exam Vital Signs (past 8 hours): - 11/03/24 03:00 11/03/24 08:00 Temperature 97.9 F Pulse Rate 59 L 55 L Respiratory Rate 17 Blood Pressure 128/71 145/74 H Pulse Oximetry 98 Oxygen Flow Rate 0 Oxygen Delivery Method Room Air Oxygen Flow Rate 0 Objective Labs 11/02/24 05:50 11/03/24 05:58 Labs: Laboratory Results - last 24 hr 11/03/24 05:58 Sodium 134 L Potassium 4.9 Chloride 107 Carbon Dioxide 19 L BUN 30 H Creatinine 0.94 Estimated GFR > 60 BUN/Creatinine Ratio 31.9 H Glucose 142 H Calcium 9.4 PFSH Medical History Trigger finger Anal fissure (02/2018) Left sided sciatica Prepatellar bursitis of right knee Internal hemorrhoids History of COVID-19 Peripheral neuropathy Spinal stenosis COPD (chronic obstructive pulmonary disease) Lumbar disc herniation with radiculopathy Anxiety Degenerative arthritis of lumbar spine Inflamed internal hemorrhoid (02/2018) BPH (benign prostatic hyperplasia) GERD (gastroesophageal reflux disease) Controlled type 2 diabetes mellitus without complication (04/30/16) Tear of rotator cuff (09/19/14) Essential hypertension Surgical History History of back surgery Hx of colonoscopy (12/03/23) S/p bilateral blepharoplasty (11/04/23) S/p bilateral blepharoplasty (03/22/23) History of lumbar spinal fusion (06/20/21) History of lumbar fusion (02/01/19) Hx of microdiscectomy (07/01/18) Hx of hand surgery (~2004) Status post epidural steroid injection H/O colonoscopy (07/08/15) History of elbow surgery H/O sinus surgery (2003) History of sebaceous cyst (2000) Hx of inguinal hernia surgery (1996) Status post laminectomy Family History Father [place] (myocardial infarction) Grandmother Diabetes mellitus Mother Lymphoma Grandfather Colon cancer Sister Bladder cancer Social History marital status: details: Pt. lives with adult son and granddaughter household members: family lives independently: Yes occupational status: employed Smoking Status: Former smoker alcohol intake: never substance use type: does not use Discharge Plan Discharge Plan Patient Disposition: Home Provider Discharge Comment: f/u 10 days stop jardance start lantus 20 units at night Discharge orders & Medications Prescriptions: New insulin glargine [Lantus Solostar U-100 Insulin] 100 unit/mL (3 mL) insulin pen 20 unit SUBCUT DAILY Qty: 15 0RF cefdinir 300 mg capsule 300 mg PO BID Qty: 14 0RF fluconazole [Diflucan] 200 mg tablet 200 mg PO DAILY Qty: 7 0RF Continued (DME) Contour Test Strips 0 .Route .MEDSUPPLY Qty: 100 0RF Rx Instructions: Use daily as directed to monitor blood glucose. enalapril maleate 20 mg tablet 20 mg PO BID Qty: 30 0RF (DME) Contour Test Strips Strip See Rx Instructions .Route Qty: 200 11RF Rx Instructions: use up to 4 times daily to monitor blood sugar as directed atorvastatin 10 mg tablet 10 mg PO QPM Qty: 90 3RF hydrocortisone 2.5 % cream 1 applic TOP BID PRN (Reason: Hemorrhoids) Qty: 60 1RF hydrocodone-acetaminophen 7.5-325 mg tablet 1 tab PO .EVENING PRN (Reason: pain) Qty: 14 0RF Rx Instructions: Take one tablet each evening as needed for neck pain (DME) disabled parking See Rx Instructions .ROUTE .MEDSUPPLY Qty: 1 0RF Rx Instructions: I find this patient to be medically disabled and qualified for Disabled Parking as indicated, and signed, on the Accompanying Disabled Parking Application for individuals. gabapentin 600 mg tablet 1,200 mg PO BID amlodipine 5 mg tablet 5 mg PO 1700 tamsulosin 0.4 mg capsule 0.4 mg PO 1700 hydrochlorothiazide 25 mg tablet 25 mg PO 1700 clobetasol 0.05 % solution 1 applic topical BID PRN (Reason: rash) metformin 500 mg tablet extended release 24 hr 1,000 mg PO BID Discontinued Jardiance 25 mg tablet 25 mg PO DAILY Qty: 90 3RF cephalexin 500 mg capsule 500 mg PO QID 7 Days Qty: 28 0RF Follow up/Referrals: Cas Marin MD [Primary Care Provider] - Visit Report/Discharge Packet Stand Alone Forms: Patient Portal/API, Stroke Signs & Symptoms Discharge Data Primary Care Provider: Cas Marin PROFEE Charge Codes Discharge inpatient/observation: [id number]
[2024-11-03] MEDS: ENOXAPARIN 40 MG/0.4 ML SYRINGE SUBCUT (09:12)
[2024-11-03 09:13] VITALS: BP 145/75
[2024-11-03] MEDS: ENALAPRIL 5 MG TABLET 20 MG PO (09:13)
[2024-11-03] MEDS: FLUCONAZOLE 100 MG TABLET 200 MG PO (09:13)
[2024-11-03] MEDS: GABAPENTIN 600 MG TABLET 1200 MG PO (09:13)
[2024-11-03] MEDS: INSULIN GLARGINE 100 UNIT/ML 3ML PEN 30 UNIT SUBCUT (09:16)
[2024-11-03] MEDS: INSULIN LISPRO 100 UNIT/ML 3ML VIAL SUBCUT (09:18)
--- NOTE | 2024-11-03 10:15 | CM.SWNOTE ---
DCP Continued: Reviewed EMR and team rounds for pt?s medical status. Per hospitalist, pt to discharge today with PO abx. DCP identified pt PCP as Dr. Cas Marin, notified Transitional Care Management team of discharge today for follow up. Plan: Anticipating dc home with family, dc orders are in for 11.03.24. CM Team will continue to follow for coordination of discharge plans. MADI Hardwick
[2024-11-03] MEDS: cefTRIAXone 1,000 MG in SODIUM CHLORIDE 0.9% 100 ML 200 MG IV (13:17)
[2024-11-03 13:20] LABS: Vancomycin Trough 7.2 ug/mL (10-20)
[2024-11-03] MEDS: VANCOMYCIN 1,500 MG/300 ML PIGGYBACK 200 MG IV (13:40)
--- NOTE | 2024-11-03 16:07 | PC.NURSE ---
Pt had relatively uneventful day. HL intact/patent. Denies discomdort. Recieved IV ABO prior to D/C Home in [id number] given w/ understanding Pt escoreted byu staff via W/C to waiting vehicle, D/C in stable status
== END 2024-11-03 16:04 | disposition home or self-care (01) | DRG 871 ==
LOC: ED 13:47 → AC 13:54
PROVIDERS: Pharmacist Pharmacist Clinician (PhC)/ Clinical Pharmacy Specialist; Admitting Provider Family Medicine; Emergency Provider Emergency Medicine; PCP Family Medicine; Referring Provider Emergency Medicine; Visit Provider Family Medicine
DX: A41.9 Sepsis, unspecified organism (principal); R65.21 Severe sepsis with septic shock; L03.317 Cellulitis of buttock; N17.9 Acute kidney failure, unspecified; L03.116 Cellulitis of left lower limb; L03.115 Cellulitis of right lower limb; E11.42 Type 2 diabetes mellitus with diabetic polyneuropathy; I10 Essential (primary) hypertension; E78.5 Hyperlipidemia, unspecified; I95.9 Hypotension, unspecified; N40.0 Benign prostatic hyperplasia without lower urinary tract symptoms; M51.369 Other intervertebral disc degeneration, lumbar region without mention of lumbar back pain or lower extremity pain; M47.816 Spondylosis without myelopathy or radiculopathy, lumbar region; Z87.891 Personal history of nicotine dependence; Z88.0 Allergy status to penicillin; Z79.84 Long term (current) use of oral hypoglycemic drugs
CPT/HCPCS: 36415; 71045; 80048; 80053; 80202; 81003; 81015; 82962; 83036; 83605; 83690; 84145; 85025; 85610; 85730; 87040; 93005; 96361; 96365; 96367; 99223; 99232; 99233; 99238; 99283; 99284; 99285; J0696; J1650; J1815

== ENCOUNTER → 2024-11-21 06:51 | Outpatient (CLI) | payer MEDICARE, OTHER, SELFPAY ==
[2024-10-31 15:41] VITALS: BMI 28.1
--- NOTE | 2024-11-21 06:52 | DI.MRI.S_ITS ---
PROCEDURE: MR CERVICAL SPINE WO CON INDICATIONS: radiculopathy TECHNIQUE: Noncontrast sagittal T1 spin echo and T2 fast spin echo, sagittal STIR, foraminal oblique sagittal T2 fast spin echo, and axial gradient echo or T2 fast spin echo through the cervical spine. COMPARISON: None. FINDINGS: Image quality: Excellent. Alignment and Curvature: There is trace retrolisthesis of C3 on C4, C4 on C5, C5 on C6. Bone Marrow: Marrow demonstrates normal overall signal. Mild reactive endplate changes are present at C3-4, C4-5, C5-6. Spinal Cord: Visualized spinal cord has normal size and signal. No cerebellar tonsillar herniation. Paraspinous Soft Tissues: No paravertebral masses. Prevertebral soft tissues are normal in thickness. Discs: Multilevel moderate to severe disc desiccation most significant at C4-5, C5-6 and C6-7 C2-C3: Minimal disc bulge without spinal stenosis. Moderate bilateral foraminal narrowing with uncovertebral hypertrophy. C3-C4: Mild disc bulge with mild spinal stenosis. Moderate to severe bilateral foraminal narrowing with uncovertebral hypertrophy. C4-C5: Mild disc bulge with [id number] spinal stenosis. [id number] bilateral foraminal narrowing, left greater than right with uncovertebral hypertrophy. C5-C6: Disc bulge with [id number] spinal stenosis. Moderate left, [id number] right foraminal narrowing with uncovertebral hypertrophy. C6-C7: Disc bulge with moderate stenosis. Moderate to severe right and moderate left foraminal narrowing with uncovertebral hypertrophy. C7-T1: No disc bulge, spinal stenosis or foraminal narrowing. IMPRESSION: Multilevel disc bulges. Multilevel spinal stenosis most prominent C6-7 secondary to disc bulge. Multilevel overall moderate foraminal narrowing most significant C6-7 secondary to uncovertebral arthropathy. Dictated by: Hanna Meyer M.D. on 11/21/2024 at 13:07 Approved by: Hanna Meyer M.D. on 11/21/2024 at 13:12
== END ==
PROVIDERS: PCP Family Medicine; Referring Provider Physician Assistant; Visit Provider Physician Assistant
DX: M47.22 Other spondylosis with radiculopathy, cervical region (principal); M50.11 Cervical disc disorder with radiculopathy, high cervical region; M48.02 Spinal stenosis, cervical region
CPT/HCPCS: 72141

== ENCOUNTER → 2024-12-01 08:49 | Outpatient (CLI) | payer MEDICARE, OTHER, SELFPAY ==
[2023-07-02 13:24] VITALS: BMI 31.9
[2024-10-31 15:41] VITALS: BMI 28.1
--- NOTE | 2024-12-01 09:08 | DIAB.FU ---
Follow-up Diabetes Education Assessment Name: Ryland Quevedo Date: 12/01/24 Time: 9-10a Dx: Type II Diabetes Provider: Tania/Gt Ryland presents for Dm visit. Stopped Metformin a couple weeks ago, but the diarrhea continued. States Jardiance was causing the diarrhea as well. Each time he takes it the diarrhea returns, despite this being an unusual SE of an SGLT2i. Was taking Ozempic. Was hospitalized with cellulitis. Now just on insulin AM. Syringes and feels comfortable with this. We did discuss potential for pens, but he says he prefers syringes at this time. Reports poor experience with injecting Ozempic pen. Anthropometrics: Ht: 68 Wt: 188# 11/2024 194# 08/29/24 195# 08/04/24 196.8# 04/07/24 198# 03/02/24 Physical Activity: Not discussed today. Self-Monitoring Blood Glucose: checking FBG. Recent readings seem to range from 135-198. Wants CGM. Diabetes Medications: 1000mg Metformin XR -- d/c 5mg Glipizide--- d/c 25mg Jardiance-- d/c 0.25-0.5mg Ozempic per week -- d/c 30u Glargine-- new Pertinent Labs: HgA1c: 10/2024 8.6% 08/2024 9.3% 05/2024 9.7% 02/2024 10.7% 12/2023 10.9% 10/2023: 9.8% 05/2023: 7.5% 12/2022: 9.3% 09/2022: 9.3% 07/2022: 8.5% 01/2022 7.6% 07/2021 6.6% 01/2021 6.8% 02/2020 6.5% 04/2019 6.2% Past Medical History: (Last Updated 11/30/24 @ 10:34 by Chandni Del Real PA-C) Anal fissure (02/2018) Anxiety R/T inability to work; anxious to return BPH (benign prostatic hyperplasia) Cellulitis Controlled type 2 diabetes mellitus without complication (04/30/16) COPD (chronic obstructive pulmonary disease) Degenerative arthritis of lumbar spine Essential hypertension GERD (gastroesophageal reflux disease) History of COVID-19 05/04, 10/06 Inflamed internal hemorrhoid (02/2018) Internal hemorrhoids Left sided sciatica Lumbar disc herniation with radiculopathy Peripheral neuropathy Prepatellar bursitis of right knee Sepsis Spinal stenosis Tear of rotator cuff (09/19/14) Trigger finger Intervention: This participant was very receptive. Provided appropriate educational handouts. Discussed the following topics: Insulin syringe vs pens Education and self placement of CGM sample CGM pathway for rx-- RD messaged provider's office about DME Low blood sugar review and tx with Rule of 15 Goals: Eat TID- not discussed Continue 0.5mg Semaglutide per week- d/c Call ADS in one week- new Wear CGM- new Follow-up: DONNA JULIEN follow-up in 2-3 weeks Aleah Farah RDN, [facility] Certified Diabetes Care and Vascular Ultrasound Technician P: [phone] Thank you for this referral
== END ==
PROVIDERS: PCP Family Medicine; Referring Provider Family Medicine
DX: E11.9 Type 2 diabetes mellitus without complications (principal); R19.7 Diarrhea, unspecified; Z71.3 Dietary counseling and surveillance; Z79.4 Long term (current) use of insulin
CPT/HCPCS: G0108

== ENCOUNTER → 2024-12-11 14:35 | Outpatient (ROUT) | payer MEDICARE, OTHER, SELFPAY ==
[2024-10-31 15:41] VITALS: BMI 28.1
== END ==
PROVIDERS: PCP Family Medicine; Visit Provider Dermatology
DX: L30.4 Erythema intertrigo (principal)
CPT/HCPCS: 87070; 87075; 87205

== ENCOUNTER → 2024-12-13 09:01 | Outpatient (CLI) | payer MEDICARE, OTHER, SELFPAY ==
[2024-10-31 15:41] VITALS: BMI 28.1
--- NOTE | 2024-12-13 09:06 | DIAB.FU ---
Addendum entered by Aleah Farah 12/19/24 09:36: 12/19/24 Ryland called this morning about FBG >200mg/dl. Upon review of his CGM TIR indicates 47% >250mg/dl and only 16% in range. Encouraged him to titrate long acting insulin by 3u tonight, and another 2-3u in 2-3 days if BG continue to be >200mg/dl fasting. Asked that he call back by Wednesday for an update. He agreed to this plan and verbalized understanding. Original Note: Follow-up Diabetes Education Assessment: Personal CGM Name: Ryland Quevedo Date: 12/13/24 Time: Dx: Type II Diabetes Ryland presents for Dm visit. Brought personal CGM for education and self placement. Reports a rash in genital area, saw survey research analyst, received a cream for treatment. Not on Jardiance any longer, though does report that this is a fungal infection. No more diarrhea since d/c of oral DM meds. Still using syringes, and prefers this at this time. Reports he did not like that the Ozempic pen did not last long, however that is a difference in dosing vs insulin. Anthropometrics: Ht: 68 Wt: 188# 11/2024 194# 08/29/24 195# 08/04/24 196.8# 04/07/24 198# 03/02/24 Physical Activity: Not discussed today. Self-Monitoring Blood Glucose: checking FBG. Recent readings seem to range from 135-198. Wants CGM. Diabetes Medications: 30u Glargine Pertinent Labs: HgA1c: 10/2024 8.6% 08/2024 9.3% 05/2024 9.7% 02/2024 10.7% 12/2023 10.9% 10/2023: 9.8% 05/2023: 7.5% 12/2022: 9.3% 09/2022: 9.3% 07/2022: 8.5% 01/2022 7.6% 07/2021 6.6% 01/2021 6.8% 02/2020 6.5% 04/2019 6.2% Past Medical History: (Last Updated 11/30/24 @ 10:34 by Chandni Del Real PA-C) Anal fissure (02/2018) Anxiety R/T inability to work; anxious to return BPH (benign prostatic hyperplasia) Cellulitis Controlled type 2 diabetes mellitus without complication (04/30/16) COPD (chronic obstructive pulmonary disease) Degenerative arthritis of lumbar spine Essential hypertension GERD (gastroesophageal reflux disease) History of COVID-19 05/04, 10/06 Inflamed internal hemorrhoid (02/2018) Internal hemorrhoids Left sided sciatica Lumbar disc herniation with radiculopathy Peripheral neuropathy Prepatellar bursitis of right knee Sepsis Spinal stenosis Tear of rotator cuff (09/19/14) Trigger finger Intervention: This participant was very receptive. Provided appropriate educational handouts. Discussed the following topics: Personal CGm education and self placement Calibration of CGM with finger sticks insulin pens vs Ozempic pens Goals: Call ADS in one week- met Wear CGM- met Calibrate CGM- new Follow-up: DONNA JULIEN follow-up in 4 weeks Aleah Farah RDN, ANAYA Certified Diabetes Care and Water Main Installer Helper P: [phone] Thank you for this referral
== END ==
LOC: DIET 09:02
PROVIDERS: PCP Family Medicine; Referring Provider Family Medicine
DX: E11.9 Type 2 diabetes mellitus without complications (principal); Z71.3 Dietary counseling and surveillance; Z79.4 Long term (current) use of insulin
CPT/HCPCS: 95249

== ENCOUNTER → 2024-12-19 12:37 | Outpatient (ROUT) | payer MEDICARE, OTHER, SELFPAY ==
[2024-10-31 15:41] VITALS: BMI 28.1
== END ==
PROVIDERS: PCP Family Medicine; Visit Provider Dermatology
DX: L30.4 Erythema intertrigo (principal)
CPT/HCPCS: 87070; 87205

== ENCOUNTER → 2024-12-19 12:44 | Outpatient (ROUT) | payer MEDICARE, OTHER, SELFPAY ==
[2024-10-31 15:41] VITALS: BMI 28.1
[2024-12-21 08:35] LABS: HSV 1 DNA Negative (Negative); HSV 2 DNA Positive (Negative)
== END ==
PROVIDERS: PCP Family Medicine; Visit Provider Dermatology
DX: L30.4 Erythema intertrigo (principal)
CPT/HCPCS: 87070; 87205; 87529

== ENCOUNTER → 2025-01-22 06:44 | Outpatient (CLI) | payer MEDICARE, OTHER, SELFPAY ==
[2024-10-31 15:41] VITALS: BMI 28.1
[2025-01-22 08:01] LABS: Add Manual Diff / Slide Review NO; Basophils Absolute Auto 100 /uL (0-100); Basophils Percent Auto 1.2 % (0-2); Eosinophils Absolute Auto 100 /uL (0-450); Eosinophils Percent Auto 2.4 % (2-4); Hematocrit 44.4 % (41-53); Hemoglobin 14.6 g/dL (13.5-17.5); Lymphocytes Absolute Auto 1300 /uL (1100-4500); Lymphocytes Percent Auto 23.8 % (25-40); Mean Corpuscular HGB Conc 32.9 % (30-36); Mean Corpuscular Hemoglobin 28.2 PG (26-34); Mean Corpuscular Volume 85.9 fL (80-100); Monocytes Absolute Auto 400 /uL (0-900); Monocytes Percent Auto 7.7 % (3-14); Neutrophils Absolute Auto 3700 /uL (1500-7000); Neutrophils Percent Auto 64.9 % (50-75); Platelet Count 154 X10^3/uL (150-400); Red Blood Cell Count 5.17 X10^6/uL (4.5-5.9); Red Cell Distribution Width 14.9 % (11.6-14.8); White Blood Cell Count 5.6 X10^3/uL (4.5-11.0)
[2025-01-22 08:21] LABS: Alanine Aminotransferase 36 IU/L (<50); Albumin 4.5 g/dL (3.5-5.0); Albumin Globulin Ratio 1.7 (1.0-2.8); Alkaline Phosphatase 58 U/L (38-126); Aspartate Aminotransferase 39 IU/L (17-59); BUN Creatinine Ratio 17.9 (6-22); Bilirubin Total 0.6 mg/dL (0.2-1.3); Blood Urea Nitrogen 19 mg/dL (9-20); Calcium 9.7 mg/dL (8.4-10.2); Carbon Dioxide 26 mmol/L (22-32); Chloride 102 mmol/L (98-107); Cholesterol 130 mg/dL (140-199); Estimated Glomerular Filt Rate > 60 mL/min (>60); Globulin 2.6 g/dL (1.7-4.1); Glucose 129 mg/dL (70-99); HDL Cholesterol 42 mg/dL (40-60); HEMOLYSIS < 15 (0-50); LDL Cholesterol Calculated 58 mg/dL (<100); Potassium 4.2 mmol/L (3.4-5.1); Sodium 138 mmol/L (137-145); Total Protein 7.1 g/dL (6.3-8.2); Triglycerides 149 mg/dL (35-150)
[2025-01-22 08:44] LABS: TSH w/ Reflex to FT4 2.81 uIU/mL (0.47-4.68)
[2025-01-22 09:09] LABS: Creatinine Urine Random 125.52 mg/dL
[2025-01-22 09:14] LABS: Microalbumin Urine Random 6.6 mg/dL (0-1.6)
== END ==
PROVIDERS: Physician Assistant; PCP Family Medicine; Referring Provider Family Medicine; Visit Provider Family Medicine
DX: E11.29 Type 2 diabetes mellitus with other diabetic kidney complication (principal); R80.9 Proteinuria, unspecified; E11.65 Type 2 diabetes mellitus with hyperglycemia; E78.5 Hyperlipidemia, unspecified; E11.3299 Type 2 diabetes mellitus with mild nonproliferative diabetic retinopathy without macular edema, unspecified eye; I10 Essential (primary) hypertension
CPT/HCPCS: 36415; 80053; 80061; 82043; 82570; 83036; 84443; 85025

== ENCOUNTER → 2025-01-24 08:48 | Outpatient (CLI) | payer MEDICARE, OTHER, SELFPAY ==
[2024-10-31 15:41] VITALS: BMI 28.1
--- NOTE | 2025-01-24 17:35 | DIAB.MNTFU ---
Follow-up Diabetes Medical Nutrition Therapy Assessment Name: Ryland Quevedo Date: 01/24/25 Time: 8-005j Dx: Type II Diabetes Ryland presents for Dm visit. 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 Reports upcoming spinal stenosis related sx, which he would like to have his BG better managed for healing. Endorses h/o rec by ortho for partial left knee but states it is not bothering him and previously the limitation was hgA1c. Diet recall: 6a: eggs, villan[place], toast x2 OR nothing 12p: fast food burger with half of large hubbard and diet coke dinner variable time: protein (5 hot dogs filled with cheese or steak) occasionally adding potato HS snack: nothing or bag of popcorn occasionally eats a 3a breakfast also. Endorses difficulty making diet changes. states he is taking a break from vegetables due to feeling sick of them RD provided CGM reports to PCP for visit tomorrow. Ryland would like to try to manage elevated postprandial elevations with diet, however this RD finds that this will be quite difficult due to how high his BG gets after eating even small carb portions and historically diet changes being very difficult to implement. Could not tolerate Metformin or Jardiance Stopped GLP1 due to difficulty with pen use, but may want to reconsider this option Otherwise, meal time insulin may be a consideration, possibly Omnipod Anthropometrics: Ht: 68 Wt: 188# 11/2024 194# 08/29/24 195# 08/04/24 196.8# 04/07/24 198# 03/02/24 Physical Activity: Not discussed today. Self-Monitoring Blood Glucose: Wearing CGM. Biggest concern is his postprandial elevations. Even if FBG are in goal his after meal numbers are often in the 200s. TIR 23% very high 38% high 39% in range 0% low avmg/dl GMI: 8.2% st dev: 60mg/dl variation: 29.3% Diabetes Medications: 35u Glargine Pertinent Labs: HgA1c: 10/2024 8.6% 08/2024 9.3% 05/2024 9.7% 02/2024 10.7% 12/2023 10.9% 10/2023: 9.8% 05/2023: 7.5% 12/2022: 9.3% 09/2022: 9.3% 07/2022: 8.5% 01/2022 7.6% 07/2021 6.6% 01/2021 6.8% 02/2020 6.5% 04/2019 6.2% Past Medical History: (Last Updated 11/30/24 @ 10:34 by IGNACIO SalazarC) Anal fissure (02/2018) Anxiety R/T inability to work; anxious to return BPH (benign prostatic hyperplasia) Cellulitis Controlled type 2 diabetes mellitus without complication (04/30/16) COPD (chronic obstructive pulmonary disease) Degenerative arthritis of lumbar spine Essential hypertension GERD (gastroesophageal reflux disease) History of COVID-19 05/04, 10/06 Inflamed internal hemorrhoid (02/2018) Internal hemorrhoids Left sided sciatica Lumbar disc herniation with radiculopathy Peripheral neuropathy Prepatellar bursitis of right knee Sepsis Spinal stenosis Tear of rotator cuff (09/19/14) Trigger finger Nutrition Rx: Carbohydrates: Meal: 45g Snack:15-30g Nutrition Diagnosis: - Excessive CHO intake r/t stage of change contemplative aeb pt report of fast food/convenience foods intake - in progress - Inadequate fiber intake r/t limited veggies, fruit, whole grains aeb diet recall- new Intervention: This participant was very receptive. Provided appropriate educational handouts. Discussed the following topics: BG trends Medication options vs lifestyle changes Carb portion recs Encouraged more veggies and variety Discouraged simple CHO foods, ie candy Goals: Calibrate CGM- met Avoid candy bars- new Add back veggies- new Follow-up: DONNA JULIEN follow-up in 2-3 weeks Aleah Farah RDN, ANAYA Certified Diabetes Care and Brokerage Purchase And Sale Clerk P: [phone] Thank you for this referral
== END ==
PROVIDERS: PCP Family Medicine; Referring Provider Family Medicine
DX: E11.65 Type 2 diabetes mellitus with hyperglycemia (principal); Z79.4 Long term (current) use of insulin; Z71.3 Dietary counseling and surveillance
CPT/HCPCS: 97803

== ENCOUNTER → 2025-02-13 08:46 | Outpatient (CLI) | payer MEDICARE, OTHER, SELFPAY ==
[2024-10-31 15:41] VITALS: BMI 28.1
--- NOTE | 2025-02-15 17:08 | DIAB.MNTFU ---
Follow-up Diabetes Medical Nutrition Therapy Assessment Name: Ryland Quevedo Date: 02/13/25 Time: 6-454n Dx: Type II Diabetes Ryland presents for Dm visit. Reports using insulin vials and interested in insulin pens. Going on a motorcycle trips and feels it will be easier to pack pens. Has experience with pen injections with GLP1, though did report a malfunctioning pen with Semaglutide, which contributed to his d/c of GLP1. Rx for insulin at 50u, currently at 40u daily with hyperglycemia. Previously tried Semaglutide, might be open to trying this again in the future per report. Has neurosurgeon visit for neck March 01. Has a trip 03/03 for 21 days. Diet recall: 6a: eggs, toast x2 OR nothing 12p: fast food burger with half of large hubbard and diet coke OR salad bar OR Vincentian food 5-7p: crackers and bologne with cheese 6-12: popcorn or veggies HS snack: nothing or bag of popcorn occasionally eats a 3a breakfast also. Endorses difficulty making diet changes. Anthropometrics: Ht: 68 Wt: 205# 02/2025 188# 11/2024 194# 08/29/24 195# 08/04/24 196.8# 04/07/24 198# 03/02/24 Physical Activity: Not discussed today. Self-Monitoring Blood Glucose: Wearing CGM. Significant increase in hyperglycemia recently. TIR 50% very high 39% high 11% in range 0% low avmg/dl GMI: 9.4% st dev: 63mg/dl variation: 24.7% Last TIR 23% very high 38% high 39% in range 0% low avmg/dl GMI: 8.2% st dev: 60mg/dl variation: 29.3% Diabetes Medications: 40u Glargine Pertinent Labs: HgA1c: 10/2024 8.6% 08/2024 9.3% 05/2024 9.7% 02/2024 10.7% 12/2023 10.9% 10/2023: 9.8% 05/2023: 7.5% 12/2022: 9.3% 09/2022: 9.3% 07/2022: 8.5% 01/2022 7.6% 07/2021 6.6% 01/2021 6.8% 02/2020 6.5% 04/2019 6.2% Past Medical History: (Last Updated 11/30/24 @ 10:34 by Chandni Del Real PA-C) Anal fissure (02/2018) Anxiety R/T inability to work; anxious to return BPH (benign prostatic hyperplasia) Cellulitis Controlled type 2 diabetes mellitus without complication (04/30/16) COPD (chronic obstructive pulmonary disease) Degenerative arthritis of lumbar spine Essential hypertension GERD (gastroesophageal reflux disease) History of COVID-19 05/04, 10/06Inflamed internal hemorrhoid (02/2018) Internal hemorrhoids Left sided sciatica Lumbar disc herniation with radiculopathy Peripheral neuropathy Prepatellar bursitis of right knee Sepsis Spinal stenosis Tear of rotator cuff (09/19/14) Trigger finger Nutrition Rx: Carbohydrates: Meal: 45gSnack:15-30g Nutrition Diagnosis: - Excessive CHO intake r/t stage of change contemplative aeb pt report of fast food/convenience foods intake - in progress - Inadequate fiber intake r/t limited veggies, fruit, whole grains aeb diet recall- improved Intervention: This participant was very receptive. Provided appropriate educational handouts. Discussed the following topics: BG trends Medication options insulin pens vs vials insulin rx and current dosing BG and healing post surgery Carb portions Impact of fiber on BG Goals: Avoid candy bars- improved Add back veggies- met If FBG >150, titrate Hs insulin to 50u per insulin rx- new Continue veggie intake- new Follow-up: DONNA JULIEN follow-up in 2-3 weeks recommended, but with appointments and trip states he will call for follow-up. RD to reach out to pt by April if no appt made. WOJCIECH messaged PCP workgroup about pen vs vial request from pt. Aleah Farah RDN, ANAYA Certified Diabetes Care and Environmental Services Lead P: [phone] Thank you for this referral
== END ==
PROVIDERS: PCP Family Medicine
DX: E11.65 Type 2 diabetes mellitus with hyperglycemia (principal); Z71.3 Dietary counseling and surveillance; Z79.4 Long term (current) use of insulin
CPT/HCPCS: 97803

== ENCOUNTER → 2025-03-28 08:51 | Outpatient (CLI) | payer MEDICARE, OTHER, SELFPAY ==
[2024-10-31 15:41] VITALS: BMI 28.1
--- NOTE | 2025-03-28 09:07 | DIAB.FU ---
Follow-up Diabetes Education Assessment Name: Ryland Quevedo Date: 03/28/25 Time: 9040a Dx: Type II Diabetes Ryland presents for Dm visit. Last visit was interested in insulin pens. Still using vials at this time. States insulin sometimes wahl, keeps insulin in fridge. States even when room temp, still wahl. Endorses interest in trying Ozempic again. Previous d/c was due to patient feeling as though the GLP1 pen malfunctioned. RD messaged provider for a plan to restart. Endorses interest in wt loss. Would benefit from GLP1 given hyperglycemia and historically difficulty time making diet changes. Reports he is up to 50u HS basal insulin. has improved BG but still have elevations any time he eats, even when low carb. Reports potential for ortho surgery, will need in goal hgA1c/BG likely for this. Improved hgA1c at 8% Has questions about eating bananas. has been eating veggies regularly as a snack. Anthropometrics: Ht: 68 Wt: 205# 02/2025 188# 11/2024 194# 08/29/24 195# 08/04/24 196.8# 04/07/24 198# 03/02/24 Self-Monitoring Blood Glucose: Wearing CGM. Improved TIR but still having excessive hyperglycemia. TIR 21% very high 47% high 32% in range 0% low avmg/dl GMI: % st dev: 50mg/dl variation: 24..4% Last TIR 50% very high 39% high 11% in range 0% low avmg/dl GMI: 9.4% st dev: 63mg/dl variation: 24.7% Diabetes Medications: 50u Glargine Pertinent Labs: HgA1c: 04/2025 8% 10/2024 8.6% 08/2024 9.3% 05/2024 9.7% 02/2024 10.7% 12/2023 10.9% 10/2023: 9.8% 05/2023: 7.5% 12/2022: 9.3% 09/2022: 9.3% 07/2022: 8.5% 01/2022 7.6% 07/2021 6.6% 01/2021 6.8% 02/2020 6.5% 04/2019 6.2% Past Medical History: (Last Updated 11/30/24 @ 10:34 by Chandni Del Real PA-C) Anal fissure (02/2018) AnxietyR/T inability to work; anxious to return BPH (benign prostatic hyperplasia) Cellulitis Controlled type 2 diabetes mellitus without complication (04/30/16) COPD (chronic obstructive pulmonary disease) Degenerative arthritis of lumbar spine Essential hypertension GERD (gastroesophageal reflux disease) History of COVID-19 05/04, 10/06Inflamed internal hemorrhoid (02/2018) Internal hemorrhoids Left sided sciatica Lumbar disc herniation with radiculopathy Peripheral neuropathy Prepatellar bursitis of right knee Sepsis Spinal stenosis Tear of rotator cuff (09/19/14) Trigger finger Intervention: This participant was very receptive. Provided appropriate educational handouts. Discussed the following topics: BG trends Use of Ozempic, completed a return demo Nutrition review, ie fruit portions goals for BG and ortho sx Goals: If FBG >150, titrate Hs insulin to 50u per insulin rx- met Continue veggie intake- met If rx'd Ozempic, excelsior picker and start- new Follow-up: DONNA JULIEN follow-up in 3-4 weeks. Plans to schedule with PCP regarding some other topics, ie injury/pain. RD messaged PCP regarding plan for potential GLP1 restart. Aleah Farah RDN, [facility] Certified Diabetes Care and Senior Construction Project Manager P: [phone] Thank you for this referral
== END ==
PROVIDERS: PCP Family Medicine; Referring Provider Family Medicine
DX: E11.65 Type 2 diabetes mellitus with hyperglycemia (principal); Z71.3 Dietary counseling and surveillance; Z79.4 Long term (current) use of insulin
CPT/HCPCS: G0108

== ENCOUNTER 2025-04-23 07:04 | Emergency (ER) | payer MEDICARE, OTHER, SELFPAY ==
[2024-10-31 15:41] VITALS: BMI 28.1
[2025-04-23 07:13] VITALS: BP 168/77; PULSE 66; RESP 18; TEMP 36.3; O2SAT 96; BMI 31.6
--- NOTE | 2025-04-23 07:20 | ED_ITS ---
HPI - URI/Sore Throat General Chief Complaint: Upper Respiratory Symptoms Stated Complaint: sinus issue? Time Seen by Provider: 04/23/25 07:08 Source: patient Mode of arrival: Ambulatory History of Present Illness HPI Narrative: 74-year-old gentleman history of hypertension dyslipidemia diabetes presents with sinus drainage thing in nonproductive cough seen by PCP in the past week told to return still symptomatic if no better in 7 in 10 days for which this is the case. Patient denies fever, chills, bodyache, nausea, vomiting, diarrhea or sick contacts. Nothing makes it better or worse. He has had COVID twice. Other than what is stated 14 point review of system is negative. Related Data Home Medications ?Medication ?Instructions ?Recorded ?Confirmed amlodipine 5 mg tablet 5 mg PO 169910/31/24 clobetasol 0.05 % scalp solution 1 applic topical BID PRN rash 10/31/24 04/23/25 hydrochlorothiazide 25 mg tablet 25 mg PO 1699 5 04/23/25 tamsulosin 0.4 mg capsule 0.4 mg PO 169910/31/2404/13 Previous Rx's ?Medication ?Instructions ?Recorded Contour Test Strips #100 ea 12/25/19 disabled parking #1 ea 01/27/24 blood sugar diagnostic (Contour #200 ea 03/20/24 Test Strips) hydrocortisone 2.5 % topical cream 1 applic topical BI D PRN 09/07/24 Hemorrhoids #60 grams atorvastatin 10 mg tablet 10 mg PO QPM #90 tabs enalapril maleate 20 mg tablet 20 mg PO BID #180 tabs 11/27/24 blood-glucose transmitter (Dexcom #1 ea 11/30/24 G6 Transmitter device) blood-glucose,crane service technician,cont #1 ea 11/30/24 (Dexcom G7 Journeyman Pipe Fitter) gabapentin 600 mg tablet 3,000 mg (5 x 600 mg) PO FRANCINE LY 12/18/24 #450 tabs insulin syringe,safety needle 0.3 #100 ea 02/28/25 mL 29 gauge x 1/2 blood-glucose sensor (Dexcom G7 #9 ea 03/02/25 Sensor device) hydrocodone 7.5 mg-acetaminophen 1 tab PO DAILY PRN pa in #20 tabs 04/16/25 325 mg tablet semaglutide 0.25 mg or 0.5 mg (2 0.25 mg (0.368 mL) REYES BCUT QWEEK #3 04/16/25 mg/3 mL) subcutaneous pen injector mL Held on 04/23/25. Instructions: Provider's Order azithromycin 250 mg tablet 250 mg PO DAILY 4 days #4 t abs 04/23/25 cefpodoxime 200 mg tablet 200 mg PO Q12H #14 tabs 04/13 10/07 Allergies Allergy/AdvReac Type Severity Reaction Status Date / Time Sulfa (Sulfonamide Allergy Severe BLISTER, Verified 04/23/25 07:10 Antibiotics) (SULFA skin (SULFONAMIDE ANTIBIOTICS)) comes off my legs latex (LATEX) Allergy Mild SKIN Verified 04/23/25 07:10 IRRITATION amoxicillin (AMOXICILLIN) AdvReac Severe Makes my Verified 04/23/25 07:10 skin crawl clavulanic acid (CLAVULANIC AdvReac Severe AUGMENTIN/V Verified 04/23/25 07:10 ACID) OMITING empagliflozin AdvReac Severe Diarrhea Verified 04/23/25 07:10 Penicillins (PENICILLINS) AdvReac Severe NAUSEA/VOMI Verified 04/23/25 07:10 TING ciprofloxacin (CIPROFLOXACIN) AdvReac Intermediate MADE PT Verified 04/23/25 07:10 FEEL RUMMY/NAUSEA erythromycin base AdvReac Intermediate SKIN Verified 04/23/25 07:10 (ERYTHROMYCIN BASE) CRAWLING metformin AdvReac Intermediate Elevated Verified 04/23/25 07:10 creatinine doxycycline AdvReac Gastrointestinal Verified 04/23/25 07:10 Upset Review of Systems Review of Systems ROS Unobtainable: All systems reviewed & are unremarkable except as noted in HPI and below Patient History Medical History (Updated 04/23/25 @ 08:29 by Tony Thompson, DO) Sepsis Cellulitis Trigger finger Anal fissure (02/2018) Left sided sciatica Prepatellar bursitis of right knee Internal hemorrhoids History of COVID-19 Peripheral neuropathy Spinal stenosis COPD (chronic obstructive pulmonary disease) Lumbar disc herniation with radiculopathy Anxiety Degenerative arthritis of lumbar spine Inflamed internal hemorrhoid (02/2018) BPH (benign prostatic hyperplasia) GERD (gastroesophageal reflux disease) Controlled type 2 diabetes mellitus without complication (04/30/16) Tear of rotator cuff (09/19/14) Essential hypertension Surgical History History of back surgery Hx of colonoscopy (12/03/23) S/p bilateral blepharoplasty (11/04/23) S/p bilateral blepharoplasty (03/22/23) History of lumbar spinal fusion (06/20/21) History of lumbar fusion (02/01/19) Hx of microdiscectomy (07/01/18) Hx of hand surgery (~2004) Status post epidural steroid injection H/O colonoscopy (07/08/15) History of elbow surgery H/O sinus surgery (2003) History of sebaceous cyst (2000) Hx of inguinal hernia surgery (1996) Status post laminectomy Family History Father [place] (myocardial infarction) Grandmother Diabetes mellitus Mother Lymphoma Grandfather Colon cancer Sister Bladder cancer Social History marital status: details: Pt. lives with adult son and granddaughter household members: family lives independently: Yes occupational status: employed Smoking Status: Former smoker alcohol intake: never substance use type: does not use Smoking Status: Former smoker alcohol intake frequency: holidays/special occasions only Alcohol type: beer Exam Narrative Exam Narrative: GENERAL: [74] year old patient appears stated age. Well-developed patient, in mild distress. HEAD: Atraumatic. Normocephalic. EYES: Pupils equal round and reactive. Extraocular motions intact. No scleral icterus. No injection or drainage. ENT: Nose without bleeding, purulent drainage. Throat without erythema, tonsillar hypertrophy or exudate. Airway patent. NECK: Trachea midline. Non tender CARDIOVASCULAR: Regular rate and rhythm without murmurs, gallops, or rubs. RESPIRATORY: Clear to auscultation. Breath sounds equal bilaterally. No wheezes, rales, or rhonchi. GASTROINTESTINAL: Abdomen soft, non-tender, nondistended. EXTREMITIES: No edema or joint tenderness. BACK: Nontender without deformity or crepitance. No flank tenderness. NEURO: AOx3. SKIN: No rash or erythema of visible areas Initial Vital Signs Initial Vital Signs: Vital Signs Temperature 97.4 F L 04/23/25 07:13 Pulse Rate 66 04/23/25 07:13 Respiratory Rate 18 04/23/25 07:13 Blood Pressure 168/77 H 04/23/25 07:13 Pulse Oximetry 96 04/23/25 07:13 Oxygen Delivery Method Room Air 04/23/25 07:13 Course Vital Signs Vital signs: Vital Signs - 8 hr 04/23/25 07:13 Temperature 97.4 F L Pulse Rate 66 Respiratory Rate 18 Blood Pressure 168/77 H Pulse Oximetry 96 Oxygen Delivery Method Room Air MDM - URI/Sore Throat Imaging Data Chest x-ray: Radiologist's Impression: [address] [address] XRay Report Signed Patient: Ryland Quevedo MR#: [id number] : 1950 Acct:[id number] Age/Sex: 74 / M Date of Service: 04/23/25 Loc: ED Accession Number: [id number] Procedure: XR chest 2V Ordering Provider: Tony Thompson D.O. PROCEDURE: XR CHEST 2V INDICATIONS: cough TECHNIQUE: 2 views of the chest were acquired. COMPARISON: [facility], , XR CHEST 1V, 10/31/2024, 10:56. FINDINGS: Surgical changes and devices: None. Lungs and pleura: Lungs are clear. No pleural effusions or pneumothorax. Mediastinum: Mediastinal contours are normal. Heart size is normal. Bones and chest wall: No suspicious bony abnormalities. Soft tissues appear unremarkable. IMPRESSION: No acute cardiopulmonary abnormality is seen. Dictated by: Jimmy Sears M.D. on 04/23/2025 at 8:05 Approved by: Jimmy Sears M.D. on 04/23/2025 at 8:06 [facility] Narrative Medical decision making narrative: Vital signs, nurse triage note, medication list, previous ER visits, and all imaging studies reviewed. Chest x-ray showed no acute process. COVID flu RSV negative. Nontoxic nonseptic. Differential diagnosis includes COVID flu RSV sinusitis pneumonia sepsis. DC home on Cefopodxime and zpack rx. Return with new or worsening symptoms keep hydrated. Discharge Plan Departure Patient Disposition: Home Clinical Impression: Pneumonia Qualifiers: Pneumonia type: due to Pneumococcus Laterality: right Lung location: lower lobe of lung Qualified Code(s): J13 - Pneumonia due to Streptococcus pneumoniae Instructions: DI for Pneumonia -- Adult Activity Restrictions/Additional Instructions: Return with new or worsening symptoms. Take your medicines directed. Follow up PCP in 1-2 weeks if no improvement in symptoms. Prescriptions: New cefpodoxime 200 mg tablet 200 mg PO Q12H Qty: 14 0RF Rx Instructions: must administer with a meal/food azithromycin 250 mg tablet 250 mg PO DAILY 4 Days Qty: 4 0RF Rx Instructions: start on day 2 of therapy No Action (DME) Contour Test Strips 0 .Route .MEDSUPPLY Qty: 100 0RF Rx Instructions: Use daily as directed to monitor blood glucose. (DME) Contour Test Strips Strip See Rx Instructions .Route Qty: 200 11RF Rx Instructions: use up to 4 times daily to monitor blood sugar as directed atorvastatin 10 mg tablet 10 mg PO QPM Qty: 90 3RF enalapril maleate 20 mg tablet 20 mg PO BID Qty: 180 3RF gabapentin 600 mg tablet 3,000 mg PO DAILY Qty: 450 3RF (DME) insulin syringe,safety needle 0.3 mL 29 gauge x 1/2 syringe See Rx Instructions .Route Qty: 100 2RF Rx Instructions: Use to inject insulin SQ daily (DME) Dexcom G7 Sensor Device See Rx Instructions .Route Qty: 9 3RF Rx Instructions: As directed hydrocortisone 2.5 % cream 1 applic TOP BID PRN (Reason: Hemorrhoids) Qty: 60 1RF (DME) Dexcom G6 Transmitter Device See Rx Instructions .Route Qty: 1 12RF Rx Instructions: As directed (DME) Dexcom G7 Journeyman Pipe Fitter Misc See Rx Instructions .Route Qty: 1 12RF Rx Instructions: As directed (DME) disabled parking See Rx Instructions .ROUTE .MEDSUPPLY Qty: 1 0RF Rx Instructions: I find this patient to be medically disabled and qualified for Disabled Parking as indicated, and signed, on the Accompanying Disabled Parking Application for individuals. semaglutide 0.25 mg or 0.5 mg (2 mg/3 mL) pen injector 0.25 mg SUBCUT QWEEK Qty: 3 1RF Rx Instructions: for 4 weeks then increase to 0.5mg weekly for 4 weeks hydrocodone-acetaminophen 7.5-325 mg tablet 1 tab PO DAILY PRN (Reason: pain) Qty: 20 0RF Rx Instructions: Take one tablet each evening as needed for neck pain amlodipine 5 mg tablet 5 mg PO 1700 tamsulosin 0.4 mg capsule 0.4 mg PO 1700 hydrochlorothiazide 25 mg tablet 25 mg PO 1700 clobetasol 0.05 % solution 1 applic topical BID PRN (Reason: rash) Referrals: Cas Marin MD [Primary Care Provider, Family Practice] Stand Alone Forms: Patient Portal/API
--- NOTE | 2025-04-23 07:30 | DI.RAD.S_ITS ---
PROCEDURE: XR CHEST 2V INDICATIONS: cough TECHNIQUE: 2 views of the chest were acquired. COMPARISON: [facility], CR, XR CHEST 1V, 10/31/2024, 10:56. FINDINGS: Surgical changes and devices: None. Lungs and pleura: Lungs are clear. No pleural effusions or pneumothorax. Mediastinum: Mediastinal contours are normal. Heart size is normal. Bones and chest wall: No suspicious bony abnormalities. Soft tissues appear unremarkable. IMPRESSION: No acute cardiopulmonary abnormality is seen. Dictated by: Jimmy Sears M.D. on 04/23/2025 at 8:05 Approved by: Jimmy Sears M.D. on 04/23/2025 at 8:06
[2025-04-23 08:15] LABS: Influenza A - CEPHEID Flu A NEGATIVE (NEGATIVE); Influenza B - CEPHEID Flu B NEGATIVE (NEGATIVE)
[2025-04-23 08:22] LABS: COVID-19 CEPHEID 4-PLEX PCR Negative (Negative)
[2025-04-23] MEDS: AZITHROMYCIN 250 MG TABLET 500 MG PO (08:48)
[2025-04-23 08:53] VITALS: BP 177/81; PULSE 59; RESP 16; O2SAT 95
== END 2025-04-23 09:05 | disposition home or self-care (01) ==
PROVIDERS: Emergency Provider Family Medicine; PCP Family Medicine
DX: J13 Pneumonia due to Streptococcus pneumoniae (principal)
CPT/HCPCS: 71046; 87637; 99283

== ENCOUNTER → 2025-05-25 07:49 | Outpatient (CLI) | payer MEDICARE, OTHER, SELFPAY ==
[2024-10-31 15:41] VITALS: BMI 28.1
--- NOTE | 2025-06-08 10:28 | DIAB.MNTFU ---
Follow-up Diabetes Medical Nutrition Therapy Assessment Name: Ryland Quevedo Date: 05/25/25 Time: 430-530a Dx: Type II Diabetes Ryland presents for Dm visit. Taking Ozempic q other week due to misunderstanding about dosing. Going out of town and will be camping. May want to wait to increase dose until he comes back. No SE so far with 0.25mg dosing. Endorses BG of 500mg/del after pancakes and syrup meal. Was urinating q 2 hours after. Reports a big reduction in appetite since starting GLP1 therapy. Eating BID most days. No fast food, which is a big accomplishment for him. Up to 60u basal insulin per report Diet Recall: B: nothing or villanueva and eggs with coffee L: nothing D: salmon salad and 1/2 potato OR Ramen instant noodles sn: popcorn water: 16.9oz x 2+ Sparklin water x2 1c coffee Anthropometrics: Ht: 68 Wt: 208# reported 05/2025 205# 02/2025 188# 11/2024 194# 08/29/24 195# 08/04/24 196.8# 04/07/24 198# 03/02/24 Self-Monitoring Blood Glucose: Wearing CGM. Excessive hyperglycemia. TIR 47% very high 34% high 19% in range 0% low avmg/dl GMI: 9.4% st dev: 78mg/dl variation: 30.9% Last TIR 36% very high 39% high 25% in range 0% low avmg/dl GMI: 8.9% st dev: 65mg/dl variation: 28.1% Diabetes Medications: 60u Glargine 2.5mg Ozempic weekly --- taking q other week Pertinent Labs: HgA1c: 04/2025 8% 10/2024 8.6% 08/2024 9.3% 05/2024 9.7% 02/2024 10.7% 12/2023 10.9% 10/2023: 9.8% 05/2023: 7.5% 12/2022: 9.3% 09/2022: 9.3% 07/2022: 8.5% 01/2022 7.6% 07/2021 6.6% 01/2021 6.8% 02/2020 6.5% 04/2019 6.2% Past Medical History: (Last Updated 11/30/24 @ 10:34 by Chandni Del Real PA-C) Anal fissure (02/2018) AnxietyR/T inability to work; anxious to return BPH (benign prostatic hyperplasia) Cellulitis Controlled type 2 diabetes mellitus without complication (04/30/16) COPD (chronic obstructive pulmonary disease) Degenerative arthritis of lumbar spine Essential hypertension GERD (gastroesophageal reflux disease) History of COVID-19 05/04, 10/06Inflamed internal hemorrhoid (02/2018) Internal hemorrhoids Left sided sciatica Lumbar disc herniation with radiculopathy Peripheral neuropathy Prepatellar bursitis of right knee Sepsis Spinal stenosis Tear of rotator cuff (09/19/14) Trigger finger Nutrition Rx: Carbohydrates: Meal: 45gSnack:15-30g Nutrition Diagnosis: - Excessive CHO intake r/t stage of change contemplative and cravings when no hungry aeb pt report - improved - Predicted inadequate fiber intake r/t limited high fiber foods and eating occurrences aeb diet recall- new Intervention: This participant was very receptive. Provided appropriate educational handouts. Discussed the following topics: BG trends ozempic dosing weekly and titration plan Appetite changes Encouraged eating min 2-3x per day Goals: Restart insulin tonight- met Aim for 2 water bottles of water per day- met Take GLP1 q Wednesday- met Take Ozempic weekly- new Increase to 0.5mg on Wednesday after return- new Eat 2-3x per day min- new Follow-up: DONNA JULIEN follow-up in 2-3 weeks Aleah Farah RDN, ANAYA Certified Diabetes Care and Cytotechnologist P: [phone] Thank you for this referral
== END ==
LOC: DIET 07:50
PROVIDERS: PCP Family Medicine; Referring Provider Family Medicine
DX: E11.65 Type 2 diabetes mellitus with hyperglycemia (principal); Z71.3 Dietary counseling and surveillance; Z79.85 Long-term (current) use of injectable non-insulin antidiabetic drugs; Z79.4 Long term (current) use of insulin
CPT/HCPCS: G0270

== ENCOUNTER → 2025-06-12 07:46 | Outpatient (CLI) | payer MEDICARE, OTHER, SELFPAY ==
[2024-10-31 15:41] VITALS: BMI 28.1
--- NOTE | 2025-06-12 07:57 | DIAB.MNTFU ---
Follow-up Diabetes Medical Nutrition Therapy Assessment Name: Ryland Quevedo Date: 06/12/25 Time: Dx: Type II Diabetes Ryland presents for Dm visit. Recent cervical pain tx with [place], steroid shot 05/22. This has impacted BG. Lost his Ozempic pen but likely due for a refill. Wants to switch to [facility]. Increased to 0.5mg per week and due today. Out of CGM sensors. Awaiting AD[facility] shipment that should have arrived per report. Eating BID. Eating breakfast or a snack in the morning. Also eating dinner. Down 5# since last visit. Wants to know how he can better remove the adhesive leftover from CGM sensor. Diet Recall: 7am: villanueva, egg, toast with coffee (stevia and sf vanilla) or nothing OR 12pm: fries OR sandwich Dinner time varies: Ramen instant noodles with cream of chicken soup sn: daikon raddish and carrots (4 days per week) OR crackers and bologna with cheese water: 16.9oz x 2+ Sparkling water x2 1c coffee Anthropometrics: Ht: 68 Wt: 203# 06/12/[address] office 208# reported 05/2025 205# 02/2025 188# 11/2024 194# 08/29/24 195# 08/04/24 196.8# 04/07/24 198# 03/02/24 Self-Monitoring Blood Glucose: Wearing CGM. Excessive hyperglycemia, though improved since last visit. Hoping over the next couple weeks that the steroid injection has less impact on his BG. TIR 24% very high 52% high 24% in range 0% low avmg/dl GMI: 8.5% st dev: 50mg/dl variation: 23.1% Last TIR 47% very high 34% high 19% in range 0% low avmg/dl GMI: 9.4% st dev: 78mg/dl variation: 30.9% Diabetes Medications: 60u Glargine 0.5mg Ozempic weekly Pertinent Labs: HgA1c: 04/2025 8% 10/2024 8.6% 08/2024 9.3% 05/2024 9.7% 02/2024 10.7% 12/2023 10.9% 10/2023: 9.8% 05/2023: 7.5% 12/2022: 9.3% 09/2022: 9.3% 07/2022: 8.5% 01/2022 7.6% 07/2021 6.6% 01/2021 6.8% 02/2020 6.5% 04/2019 6.2% Past Medical History: (Last Updated 11/30/24 @ 10:34 by IGNACIO SalazarC) Anal fissure (02/2018) AnxietyR/T inability to work; anxious to return BPH (benign prostatic hyperplasia) Cellulitis Controlled type 2 diabetes mellitus without complication (04/30/16) COPD (chronic obstructive pulmonary disease) Degenerative arthritis of lumbar spine Essential hypertension GERD (gastroesophageal reflux disease) History of COVID-19 05/04, 10/06Inflamed internal hemorrhoid (02/2018) Internal hemorrhoids Left sided sciatica Lumbar disc herniation with radiculopathy Peripheral neuropathy Prepatellar bursitis of right knee Sepsis Spinal stenosis Tear of rotator cuff (09/19/14) Trigger finger Nutrition Rx: Carbohydrates: Meal: 45gSnack:15-30g Na: 2300mg per day Nutrition Diagnosis: - Predicted inadequate fiber intake r/t limited high fiber foods and eating occurrences aeb diet recall- in progress - Predicted excessive Na intake r/t food preferences aeb pt report and diet recall -new Intervention: This participant was very receptive. Provided appropriate educational handouts. Discussed the following topics: BG trends and impact of steroid injections on hyperglycemia ozempic dosing weekly and titration plan Eating occurrences and veggie intake Troubleshooting access to meds and CGM Ways to remove skin adhesive reminence Encouraged eating min 2-3x per day Salt intake and impact on BP potentially Goals: Take Ozempic weekly- met Increase to 0.5mg on Wednesday after return- met Eat 2-3x per day min- met/continue Eat veggie snack 5 days per week- new Ask [facility] about Ozempic access- new Call [facility] about CGM shipment- new Check out skin adhesive removal - new Follow-up: DONNA JULIEN follow-up in 3-4 weeks Aleah Farah RDN, ANAYA Certified Diabetes Care and Medical Billing Coder P: [phone] Thank you for this referral
== END ==
PROVIDERS: PCP Family Medicine; Referring Provider Family Medicine
DX: E11.65 Type 2 diabetes mellitus with hyperglycemia (principal); Z71.3 Dietary counseling and surveillance; Z79.84 Long term (current) use of oral hypoglycemic drugs; Z79.4 Long term (current) use of insulin
CPT/HCPCS: G0270

== ENCOUNTER → 2025-07-13 07:48 | Outpatient (CLI) | payer MEDICARE, OTHER, SELFPAY ==
[2024-10-31 15:41] VITALS: BMI 28.1
--- NOTE | 2025-07-13 08:09 | DIAB.MNTFU ---
Follow-up Diabetes Medical Nutrition Therapy Assessment Name: Ryland Quevedo Date: 07/13/25 Time: 8247f Dx: Type II Diabetes Ryland presents for Dm visit. Eating out fast food for lunch much less. 2x per week, which is a big improvement. Reduced appetite and cravings. Trying to eat less bread. Was off Ozempic x 2 weeks due to access. Then started 0.25mg, and next week plans to go back up to 0.5mg. BG much improved Diet Recall: 7am: villanueva, egg, +/- toast with coffee (stevia and sf vanilla) 12pm: fast food or an apple 4-6p: egg sandwich OR sn: daikon raddish and carrots (7 days per week) water Sparkling water 1c coffee Anthropometrics: Ht: 68 Wt: 202# in RD office 203# 06/12/[address] office 208# reported 05/2025 205# 02/2025 188# 11/2024 194# 08/29/24 195# 08/04/24 196.8# 04/07/24 198# 03/02/24 Self-Monitoring Blood Glucose: Wearing CGM. Much improved TIR. TIR 5% very high 37% high 58% in range 0% low avmg/dl GMI: 7.5% st dev: 42mg/dl variation: 24% Last TIR 24% very high 52% high 24% in range 0% low avmg/dl GMI: 8.5% st dev: 50mg/dl variation: 23.1% Diabetes Medications: 60u Glargine 0.5mg Ozempic weekly Pertinent Labs: HgA1c: 04/2025 8% 10/2024 8.6% 08/2024 9.3% 05/2024 9.7% 02/2024 10.7% 12/2023 10.9% 10/2023: 9.8% 05/2023: 7.5% 12/2022: 9.3% 09/2022: 9.3% 07/2022: 8.5% 01/2022 7.6% 07/2021 6.6% 01/2021 6.8% 02/2020 6.5% 04/2019 6.2% Past Medical History: (Last Updated 11/30/24 @ 10:34 by Chandni Del Real PA-C) Anal fissure (02/2018) AnxietyR/T inability to work; anxious to return BPH (benign prostatic hyperplasia) Cellulitis Controlled type 2 diabetes mellitus without complication (04/30/16) COPD (chronic obstructive pulmonary disease) Degenerative arthritis of lumbar spine Essential hypertension GERD (gastroesophageal reflux disease) History of COVID-19 05/04, 10/06Inflamed internal hemorrhoid (02/2018) Internal hemorrhoids Left sided sciatica Lumbar disc herniation with radiculopathy Peripheral neuropathy Prepatellar bursitis of right knee Sepsis Spinal stenosis Tear of rotator cuff (09/19/14) Trigger finger Nutrition Rx: Carbohydrates: Meal: 45g Snack:15-30g Na: 2300mg per day Nutrition Diagnosis: - Predicted inadequate fiber intake r/t limited high fiber foods and eating occurrences aeb diet recall- inmproved - Predicted excessive Na intake r/t food preferences aeb pt report and diet recall -improved/in progress Intervention: This participant was very receptive. Provided appropriate educational handouts. Discussed the following topics: BG trends and improvement and goals Nutrition changes Eating out and impact on BG Goals: Eat veggie snack 5 days per week- met Ask [place] about Ozempic access- d/c Call [facility] about CGM shipment- met Check out skin adhesive removal - in progress Limit eating out lunch 2x per week- new Continue veggies daily - new Follow-up: DONNA JULIEN follow-up in 3-4 weeks Aleah Farah RDN, ANAYA Certified Diabetes Care and Food And Beverage Manager P: [phone] Thank you for this referral
== END ==
LOC: DIET 07:49
PROVIDERS: PCP Family Medicine; Referring Provider Family Medicine
DX: E11.9 Type 2 diabetes mellitus without complications (principal); Z71.3 Dietary counseling and surveillance; Z79.4 Long term (current) use of insulin; Z79.84 Long term (current) use of oral hypoglycemic drugs
CPT/HCPCS: G0270

== ENCOUNTER → 2025-07-25 09:58 | Outpatient (CLI) | payer MEDICARE, OTHER, SELFPAY ==
[2024-10-31 15:41] VITALS: BMI 28.1
[2025-07-25 10:41] LABS: Hemoglobin A1C% w Est Avg Glu 7.3 % (4.0-6.0)
== END ==
PROVIDERS: PCP Family Medicine; Referring Provider Physician Assistant; Visit Provider Physician Assistant
DX: E11.65 Type 2 diabetes mellitus with hyperglycemia (principal)
CPT/HCPCS: 36415; 83036

== ENCOUNTER 2025-08-28 23:18 | Emergency (ER) | payer MEDICARE, OTHER, SELFPAY ==
[2024-10-31 15:41] VITALS: BMI 28.1
--- NOTE | 2025-08-28 23:20 | ED.URI ---
HPI - URI/Sore Throat General Chief Complaint: Upper Respiratory Symptoms Stated Complaint: Cough, Congestion Time Seen by Provider: 08/28/25 23:19 History of Present Illness HPI Narrative: 74-year-old male with past medical history of hyperlipidemia, hypertension, diabetes, comes into the ED from home for evaluation of a productive cough, he states it has been ongoing intermittent persistent for the past several months, states that he has not gone to a doctor since his symptoms started. He states that the coughing has made him feel a little more tired, but denies any actual true chest pain shortness of breath fever chills nausea vomiting abdominal pain or any other GI/ symptoms at this time. Patient states that his symptoms did seem to start when he got a bunch of vaccines, states that they included the flu shot COVID shot. He is not on any anticoagulation, denies any other symptoms at this time. 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 #1 ea 11/30/24 (Dexcom G7 Warehouse Order Filler) gabapentin 600 mg tablet 3,000 mg (5 x 600 mg) PO DAILY 12/18/24 #450 tabs insulin syringe,safety needle 0.3 #100 ea 02/28/25 mL 29 gauge x 1/2 blood-glucose sensor (Dexcom G7 #9 ea 03/02/25 Sensor device) pen needle, diabetic 32 gauge x #100 ea 04/24/2532 (Pen Needle) albuterol sulfate 90 mcg/actuation 2 puff inhalation Q6H PRN 05/04/25 aerosol inhaler shortness of breath or wheezing #6.7 grams inhalational spacing device #1 ea 05/04/25 (Aerochamber MV spacer) hydrocortisone 2.5 % topical 1 applic topical BID PRN rash 07/30/25 ointment #28.35 grams semaglutide 0.25 mg or 0.5 mg (2 0.5 mg (0.374 mL) SUBCUT QWEEK 07/30/25 mg/1.5 mL) subcutaneous pen #1.5 mL injector hydrochlorothiazide 25 mg tablet 25 mg PO DAILY #90 tabs 07/31/25 hydrocodone 7.5 mg-acetaminophen 1 tab PO DAILY PRN pain #20 tabs 08/06/25 325 mg tablet amlodipine 5 mg tablet 5 mg PO DAILY #90 tabs 08/08/25 atorvastatin 10 mg tablet 10 mg PO QPM #90 tabs 08/08/25 tamsulosin 0.4 mg capsule 0.4 mg PO DAILY #90 caps 08/08/25 methylprednisolone 4 mg tablets in See Rx Instructions PO .COMPLEX 08/29/25 a dose pack (Medrol (Igor)) #21 ea Allergies Allergy/AdvReac Type Severity Reaction Status Date / Time Sulfa (Sulfonamide Allergy Severe BLISTER, Verified 08/28/25 23:23 Antibiotics) (SULFA skin (SULFONAMIDE ANTIBIOTICS)) comes off my legs latex (LATEX) Allergy Mild SKIN Verified 08/28/25 23:23 IRRITATION amoxicillin (AMOXICILLIN) AdvReac Severe Makes my Verified 08/28/25 23:23 skin crawl clavulanic acid (CLAVULANIC AdvReac Severe AUGMENTIN/V Verified 08/28/25 23:23 ACID) OMITING empagliflozin AdvReac Severe Diarrhea Verified 08/28/25 23:23 Penicillins (PENICILLINS) AdvReac Severe NAUSEA/VOMI Verified 08/28/25 23:23 TING ciprofloxacin (CIPROFLOXACIN) AdvReac Intermediate MADE PT Verified 08/28/25 23:23 FEEL RUMMY/NAUSEA erythromycin base AdvReac Intermediate SKIN Verified 08/28/25 23:23 (ERYTHROMYCIN BASE) CRAWLING metformin AdvReac Intermediate Elevated Verified 08/28/25 23:23 creatinine doxycycline AdvReac Gastrointestinal Verified 08/28/25 23:23 Upset Review of Systems Review of Systems Narrative: General: Denies fever, chills, weight loss HEENT: Denies headache, eye drainage, eye irritation, head trauma, sore throat, voice change Cardiovascular: Denies any chest pain, palpitations, tachycardia Respiratory: Positive cough Denies any shortness of breath, wheeze, stridor GI/: Denies any abdominal pain, nausea, vomiting, diarrhea, bright red blood per rectum, melanotic stools, urinary frequency, urinary retention, dysuria, hematuria MSK: Denies any joint pain, muscle pains, swelling Skin: Denies any rashes, lesions, discoloration Neuro: Denies any headache, lightheadedness, dizziness, fainting, weakness Psych: Denies SI/HI Patient History Medical History (Updated 08/29/25 @ 01:24 by Breezy Ba DO) Sepsis Cellulitis Trigger finger Anal fissure (02/2018) Left sided sciatica Prepatellar bursitis of right knee Internal hemorrhoids History of COVID-19 Peripheral neuropathy Spinal stenosis COPD (chronic obstructive pulmonary disease) Lumbar disc herniation with radiculopathy Anxiety Degenerative arthritis of lumbar spine Inflamed internal hemorrhoid (02/2018) BPH (benign prostatic hyperplasia) GERD (gastroesophageal reflux disease) Controlled type 2 diabetes mellitus without complication (04/30/16) Tear of rotator cuff (09/19/14) Essential hypertension Surgical History History of back surgery Hx of colonoscopy (12/03/23) S/p bilateral blepharoplasty (11/04/23) S/p bilateral blepharoplasty (03/22/23) History of lumbar spinal fusion (06/20/21) History of lumbar fusion (02/01/19) Hx of microdiscectomy (07/01/18) Hx of hand surgery (~2004) Status post epidural steroid injection H/O colonoscopy (07/08/15) History of elbow surgery H/O sinus surgery (2003) History of sebaceous cyst (2000) Hx of inguinal hernia surgery (1996) Status post laminectomy Family History Father [place] (myocardial infarction) Grandmother Diabetes mellitus Mother Lymphoma Grandfather Colon cancer Sister Bladder cancer Social History marital status: details: Pt. lives with adult son and granddaughter household members: family lives independently: Yes occupational status: employed Smoking Status: Former smoker alcohol intake: never substance use type: does not use alcohol intake frequency: holidays/special occasions only Alcohol type: beer Exam Narrative Exam Narrative: General: Cooperative, well-developed, not in acute distress HEENT: Normocephalic, atraumatic, PERRLA, normal sclera, eyelids normal Neck: Active full range of motion, atraumatic Chest: Normal to inspection, negative crepitus, no overlying erythema ecchymosis Respiratory: Patient coughing on exam, Normal respiratory effort, not in acute respiratory distress, clear to auscultation bilaterally wheeze, tachypnea, rhonchi, rales Cardiology: Regular rate rhythm negative gallop, murmur, rubs GI/: No tenderness to palpation, soft, non rigid, normal to inspection, exam deferred MSK: Full active range of motion in all 4 extremities, atraumatic, no tenderness to palpation of any bony prominences Skin: No rashes or lesions noted Neuro: Alert awake oriented x3, moves all 4 extremities spontaneously, cranial nerves intact, able to answer all questions appropriately follows commands appropriately Psych: Cooperative, negative suicidal or homicidal ideations Initial Vital Signs Initial Vital Signs: Vital Signs Temperature 96.2 F L 08/28/25 23:26 Pulse Rate 74 08/28/25 23:26 Respiratory Rate 18 08/28/25 23:26 Blood Pressure 132/63 08/28/25 23:26 Pulse Oximetry 95 08/28/25 23:26 Oxygen Delivery Method Room Air 08/28/25 23:26 Course Orders Ordered: ED Orders 08/28/25 23:43 Chest [XR chest 2V] Stat 08/29/25 00:00 Respiratory Panel (Film Array) Stat Discontinued Medications Prednisone (Prednisone 20 Mg Tablet) 20 mg PO NOW ONE Stop: 08/29/25 01:22 Vital Signs Vital signs: Vital Signs - 8 hr 08/28/25 23:26 Temperature 96.2 F L Pulse Rate 74 Respiratory Rate 18 Blood Pressure 132/63 Pulse Oximetry 95 Oxygen Delivery Method Room Air MDM - URI/Sore Throat Lab Data Labs: Lab Results 08/29/25 Range/Units 00:00 Chlamy pneumoniae PCR Not detected (Not Detect) Adenovirus (PCR) Not detected (Not Detect) B. pertussis DNA (PCR) Not detected (Not Detect) B.parapertussis DNA PCR Not detected (Not Detecte) Coronavirus OC43 (PCR) Not detected (Not Detect) Coronavirus HKU1 (PCR) Not detected (Not Detect) Coronavirus 229E (PCR) Not detected (Not Detect) SARS-CoV-2 (PCR) Not detected (Not Detecte) Coronavirus NL63 (PCR) Not detected (Not Detect) Human Metapneumovir PCR Not detected (Not Detect) Influenza Type A (PCR) Not detected (Not Detect) Influenza Type B (PCR) Not detected (Not Detect) M. pneumoniae (PCR) Not detected (Not Detect) Parainfluenza 1 (PCR) Not detected (Not Detect) Parainfluenza 2 (PCR) Not detected (Not Detect) Parainfluenza 3 (PCR) Not detected (Not Detect) Parainfluenza 4 (PCR) Not detected (Not Detect) RSV (PCR) Not detected (Not Detect) Entero/Rhino (PCR) Not detected (Not Detect) MDM Narrative Medical decision making narrative: 74-year-old male with a past medical history of hypertension hyperlipidemia, comes into the ED from home for evaluation of persistent ongoing intermittent cough for the past several months, patient not requiring any supplemental oxygen, he states that the coughing is making him feel weak all over but he denies any headache visual disturbance chest pain shortness breath fever chills nausea vomiting abdominal pain or any other GI/ symptoms time. He thinks he may have pneumonia, states he has a history of this. Patient had viral panel performed here as well as chest x-ray. Viral panel was negative chest x-ray without any acute cardiopulmonary abnormality, patient states that he is an ex-smoker of 11 years, he states that he has been told that he has COPD but does not take any medications for this, I do believe his cough is secondary to possible COPD exacerbation, patient however not wheezing not requiring supplemental oxygen therefore we will treat with steroids and instructed patient to follow up with the primary care and pulmonology in outpatient setting, he verbalized understanding of this and agrees to being discharged home with outpatient follow up Discharge Plan Departure Patient Disposition: Home Clinical Impression: Cough Activity Restrictions/Additional Instructions: Please follow up with primary care and pulmonology in outpatient setting Please use your albuterol inhaler as needed to help with any of your symptoms such as cough shortness of breath or chest tightness Please read the discharge instructions sheet carefully and bring all papers to all doctor follow-up visits, as it may contain information that your doctor may want to see. Disease processes change and evolve, if your symptoms worsen or if you develop any new symptoms that are concerning to you please return for evaluation. Your evaluation today does not show any evidence of any life-threatening/serious illnesses requiring admission to the hospital or surgery. Please follow-up with your doctor for re-evaluation in approximately 1 day. Seek immediate medical attention for any worrisome symptoms. *If you do not have a primary care provider please contact the [facility] Resource line at [phone]. They will ask some questions about your medical history and help get you set up with a doctor in the community. Prescriptions: New methylprednisolone [Medrol (Igor)] 4 mg tablets,dose pack See Rx Instructions .ROUTE .COMPLEX Qty: 21 0RF Rx Instructions: for 6 days No Action albuterol sulfate 90 mcg/actuation HFA aerosol inhaler 2 puff inhalation Q6H PRN (Reason: shortness of breath or wheezing) Qty: 6.7 0RF (DME) Aerochamber MV Spacer See Rx Instructions .ROUTE .MEDSUPPLY Qty: 1 0RF Rx Instructions: As directed (DME) Contour Test Strips 0 .Route .MEDSUPPLY Qty: 100 0RF Rx Instructions: Use daily as directed to monitor blood glucose. enalapril maleate 20 mg tablet 20 mg PO BID Qty: 180 3RF gabapentin 600 mg tablet 3,000 mg PO DAILY Qty: 450 3RF (DME) insulin syringe,safety needle 0.3 mL 29 gauge x 1/2 syringe See Rx Instructions .Route Qty: 100 2RF Rx Instructions: Use to inject insulin SQ daily (DME) Dexcom G7 Sensor Device See Rx Instructions .Route Qty: 9 3RF Rx Instructions: As directed (DME) pen needle, diabetic [Pen Needle] 32 gauge x 5/32 needle See Rx Instructions .Route Qty: 100 3RF Rx Instructions: For insulin injection daily hydrochlorothiazide 25 mg tablet 25 mg PO DAILY Qty: 90 3RF hydrocodone-acetaminophen 7.5-325 mg tablet 1 tab PO DAILY PRN (Reason: pain) Qty: 20 0RF Rx Instructions: Take one tablet each evening as needed for neck pain atorvastatin 10 mg tablet 10 mg PO QPM Qty: 90 3RF tamsulosin 0.4 mg capsule 0.4 mg PO DAILY Qty: 90 3RF amlodipine 5 mg tablet 5 mg PO DAILY Qty: 90 3RF (DME) Dexcom G7 Warehouse Order Filler Misc See Rx Instructions .Route Qty: 1 12RF Rx Instructions: As directed (DME) disabled parking See Rx Instructions .ROUTE .MEDSUPPLY Qty: 1 0RF Rx Instructions: I find this patient to be medically disabled and qualified for Disabled Parking as indicated, and signed, on the Accompanying Disabled Parking Application for individuals. ipratropium bromide 42 mcg (0.06 %) spray,non-aerosol 2 spray intranasal DIRECTED Patient Comments: USE 2 SPRAYS IN EACH NOSTRIL THREE TIMES DAILY FOR 4 DAYS semaglutide 0.25 mg or 0.5 mg(2 mg/1.5 mL) pen injector 0.5 mg SUBCUT QWEEK Qty: 1.5 12RF insulin glargine [Lantus Solostar U-100 Insulin] 100 unit/mL (3 mL) insulin pen 65 unit SUBCUT DAILY hydrocortisone 2.5 % ointment 1 applic topical BID PRN (Reason: rash) Qty: 28.35 0RF Referrals: Cas Marin MD [Primary Care Provider, Family Practice] Ruddy Bhakta MD [Physician, Pulmonology] Stand Alone Forms: Patient Portal/API
[2025-08-28 23:26] VITALS: BP 132/63; PULSE 74; RESP 18; TEMP 35.7; O2SAT 95; BMI 30.4
--- NOTE | 2025-08-28 23:43 | DI.RAD.S_ITS ---
PROCEDURE: XR CHEST 2V INDICATIONS: cough TECHNIQUE: 2 views of the chest were acquired. COMPARISON: [facility], CR, XR CHEST 2V, 05/04/2025, 7:43. [facility], CR, XR CHEST 2V, 04/23/2025, 7:36. FINDINGS: Surgical changes and devices: None. Lungs and pleura: Lungs are clear. No pleural effusions or pneumothorax. Mediastinum: Mediastinal contours are normal. Heart size is normal. Bones and chest wall: No suspicious bony abnormalities. Soft tissues appear unremarkable. IMPRESSION: No acute cardiopulmonary abnormality is seen. Dictated by: Mar Pinedo M.D. on 08/29/2025 at 0:50 Approved by: Mar Pinedo M.D. on 08/29/2025 at 0:50
[2025-08-29 01:00] LABS: Coronavirus NL 63 Not Detected (Not Detect); SARS- CoV-2 Not Detected (Not Detecte)
[2025-08-29 01:30] VITALS: BP 154/69; PULSE 69; RESP 24; O2SAT 95
== END 2025-08-29 01:33 | disposition home or self-care (01) ==
PROVIDERS: Emergency Provider Student in an Organized Health Care Education/Training Program; PCP Family Medicine
DX: R05.9 Cough, unspecified (principal); R19.7 Diarrhea, unspecified; I10 Essential (primary) hypertension; E11.9 Type 2 diabetes mellitus without complications
CPT/HCPCS: 71046; 87633; 99283; 99284